=== PATIENT | female | born 1955 | race Caucasian/White ===

== ENCOUNTER → 2016-09-13 | Outpatient (CLI) | payer BC ==
[~2016-09-13] MED LIST: ACYC-57 PO; AFRIN NAE; ATV/1 PO; CETI10TA84 PO; CYCL0.052 OPB; CYCL10TA6 PO; DEXT1TAB50 PO; DIPH25TA24 PO; FAMO20TA11 PO; FRCT/ PO; FRS/40 PO; IMD/2 PO; KETO10TA PO; LEVO1TAB PO; MECL1TAB42 PO; METO-217 PO; METO50TA16 PO; OFLO0.3S OPB; OLOP0.1S3 OPB; ONDA8TAB6 PO; OXYC-409 PO; OXYC20TA32 PO; PANT40TA PO; PILO5TAB10 PO; POTA10CA28 PO; PRED1SUS3 OPB; PROM25TA PO; PSEU30TA20 PO; RLF500 PO; SUMA100T16 PO; TBRDOPO TOP; TIMO1SOL OPB; TOBRSUS OPB; TRIA3AER NAE; VGMOPS OP; ZOLP10TA PO
--- NOTE | 2016-09-13 11:10 | DIAGNOSTIC IMAGING REPORT ---
PELVIS 1 OR 2 VIEW ROUTINE CLINICAL HISTORY: Low back pain, Fall, Pain of right hip joint COMPARISON STUDY: CT of the abdomen and pelvis April 25, 2013 FINDINGS: The sacroiliac joints and symphysis pubis are intact. There is no acute fracture within the pelvis or hips. A 2 cm calcific density adjacent to the greater trochanter of the left femur is chronic. Joint spaces are preserved. IMPRESSION: No acute fracture within the pelvis or hips. Electronically signed by: Sylvain Lacey M.D. 09/13/2016 11:09 AM Dictated Date/Time: 09/13/2016 11:08 AM
--- NOTE | 2016-09-13 11:11 | DIAGNOSTIC IMAGING REPORT ---
RIGHT HIP UNILATERAL 2 VIEWS CLINICAL HISTORY: Right hip pain. Fall. COMPARISON: CT of the abdomen and pelvis April 25, 2013. FINDINGS: Alignment of the right hip is anatomic. There is no acute fracture. Joint space is preserved. No fracture or suspicious lesion is identified. IMPRESSION: No acute fracture. No significant abnormality of the right hip. Electronically signed by: Sylvain Lacey M.D. 09/13/2016 11:10 AM Dictated Date/Time: 09/13/2016 11:09 AM
--- NOTE | 2016-09-13 11:31 | DIAGNOSTIC IMAGING REPORT ---
L-SPINE MIN 4 VIEWS ROUTINE CLINICAL HISTORY: Low back pain, Fall, Pain of right hip joint COMPARISON: Lumbar spine MRI February 27, 2010 and January 05, 2016. FINDINGS: There are cholecystectomy clips. There is slight leftward curvature of the lower lumbar spine. No acute lumbar spine fracture is identified. 9 mm of anterolisthesis of L4 and L5 is noted. This has increased since MRI of January 05, 2016 and is likely related to facet arthrosis. There is moderate disc space narrowing at this level. IMPRESSION: 1. No acute lumbar spine fracture. 2. Grade I anterolisthesis of L4 and L5 which has mildly increased since MRI of January 05, 2016 is likely due to facet arthrosis. 2. Severe facet arthrosis at L4-L5. Moderate multilevel degenerative disc disease and facet arthrosis of the lumbar spine. Electronically signed by: Sylvain Lacey M.D. 09/13/2016 11:30 AM Dictated Date/Time: 09/13/2016 11:27 AM
== END | disposition home or self-care (01) ==
LOC: C.RADBC 10:49
PROVIDERS: ATTEND Psychiatry & Neurology Neurology
DX: M25.551 Pain in right hip (principal); M54.5 Low back pain; W19.XXXA Unspecified fall, initial encounter

== ENCOUNTER → 2016-12-10 | Outpatient (CLI) | payer BC ==
[~2016-12-10] MED LIST changes: -ACYC-57 PO; +ACYC1CAP8 PO; +OLOP0.1S2 OPB; -OLOP0.1S3 OPB
== END | disposition home or self-care (01) ==
LOC: C.PAPS 16:16
PROVIDERS: ATTEND Obstetrics & Gynecology
DX: Z01.419 Encounter for gynecological examination (general) (routine) without abnormal findings (principal); C91.10 Chronic lymphocytic leukemia of B-cell type not having achieved remission; C85.90 Non-Hodgkin lymphoma, unspecified, unspecified site; N95.2 Postmenopausal atrophic vaginitis

== ENCOUNTER → 2016-12-11 | Outpatient (CLI) | payer BC ==
--- NOTE | 2016-12-11 13:49 | MAMMOGRAPHY REPORT ---
BILATERAL DIGITAL DIAGNOSTIC MAMMOGRAM TOMOSYNTHESIS WITH CAD AND TARGETED BILATERAL ULTRASOUND: 2016 CLINICAL HISTORY: 61-year-old woman with a prior history of prior thyroid cancer, leukemia and lympho ma, presents for annual screening mammogram as well as increasing lymphadenopathy. TECHNIQUE: Bilateral breast tomosynthesis in addition to standard 2D mammography was performed. Repe at 2-D MLO views were obtained to include more axillary tail tissue. Current study was also evaluate d with a Computer Aided Detection (CAD) system. COMPARISON: Comparison is made to exams dated: 11/29/2015 ultrasound, 11/29/2015 mammogram, 02/28/2014 ultrasound, 02/28/2014 mammogram, 04/15/2012 ultrasound, and 04/15/2012 mammogram - [facility]. BREAST COMPOSITION: There are scattered areas of fibroglandular density in both breasts. FINDINGS: There are stable 7 mm nodular asymmetries in the lateral posterior right breast on the CC v iew, which are unchanged in size and appearance dating back to at least 08/26/2007, therefore likely benign. There are a few benign-appearing calcifications scattered in the breasts. On the repeat lef t MLO view, a bilobed 3.6 cm mass is partially visualized projecting over the superior posterior pect oralis muscle in the axillary region, suspicious for an enlarged lymph node. No suspicious breast ma ss, architectural distortion or cluster of microcalcifications is seen in the breasts. Targeted ultrasound was performed in both axillae. In the left axilla, numerous enlarged lymph nodes with thickened cortices are identified. The largest lymph node measures 3.2 cm in length and has a thickened cortex measuring up to 8 mm. There are similar appearing enlarged, morphologically abnorma l lymph nodes in the right axilla, the largest of which measures 3.2 cm and has a cortex measuring 9 mm. IMPRESSION: ACR BI-RADS CATEGORY 2: BENIGN, TARGETED ULTRASOUND ACR BI-RADS CATEGORY 2: BENIGN 1. Stable mammographic appearance of the breasts, without mammographic evidence of malignancy. Aydin mmend routine screening in 1 year. 2. Increasing bilateral axillary lymphadenopathy on ultrasound, compatible with disease progression and concordant with the patient's clinical history. These results and recommendations were discussed with the patient at the time of the exam. Approximately 10% of breast cancers are not detected with mammography. A negative mammographic report should not delay biopsy if a clinically suggestive mass is present. Paula Valderrama M.D. ay/:12/11/2016 11:03:59 [address] Driver: Hilaria NATHAN)(Jessica), [facility] letter sent: Normal 1/2 BI-RADS Code: ACR BI-RADS Category 2: Benign Ultrasound BI-RADS: ACR BI-RADS Category 2: Benign
== END | disposition home or self-care (01) ==
LOC: C.MAMM 08:38
PROVIDERS: ATTEND Obstetrics & Gynecology
DX: R59.0 Localized enlarged lymph nodes (principal)

== ENCOUNTER 2017-05-19 09:07 | Inpatient (IN) | payer BC ==
[~2017-05-19] VITALS: Ht 157.5 cm; Wt 69.9 kg
[~2017-05-19 09:07] MED LIST changes: +ACYC-57 PO; -ACYC1CAP8 PO; -OLOP0.1S2 OPB; +OLOP0.1S3 OPB
[2017-05-19] MEDS ORDERED: ONDANSETRON INJ 2 MG/ML 2 ML VIAL IV STA ×2 (10:08→18:59)
[2017-05-19] MEDS ORDERED: ACETAMINOPHEN 500 MG TAB PO STA (10:08)
[2017-05-19] MEDS ORDERED: MoRPHine SULFATE 10 MG/ML CARP/VIAL IV STA (10:08)
[2017-05-19] MEDS ORDERED: DEXAMETHASONE **PF** INJ 10 MG/ML VIAL IV ONE (10:15)
--- NOTE | 2017-05-19 10:15 | EMERGENCY ROOM VISIT NOTE ---
History Report prepared by Radhika: Larry Barrios Under the Supervision of: Dr. Nikhil Ferro M.D. First contact with patient: 09:33 Chief Complaint: LEG PAIN,LEG INJURY Stated Complaint: ACUTE PAIN LEFT L SPINE, HIP, AND LEG History of Present Illness The patient is a 62 year old white female with a past medical history of leukemia, lymphoma, Sjgren's disease, ankylosing spondylitis, and previous blood clots who presents to the ED with a cc of sharp left lower extremity pain beginning about 1 week ago. Positive left groin pain and left hip pain. Negative recent falls, fevers, chills, chest pain, shortness of breath, nausea, vomiting, abdominal pain, bowel incontinence, bladder incontinence, weakness, numbness, or any other extremity pain. When the patient's pain began, she thought that it was secondary to her normal body aches from her chemotherapy treatments. The patient's most recent chemotherapy treatment was on May 07 of this year. Her next one is in two weeks. However, her pains then became more severe a couple days later. Her pain is exacerbated with movement of her left leg. She notes that she had a UTI recently but her current symptom do not feel like that. Source of History: patient Onset: 1 week ago Position: leg (left) Symptom Intensity: moderate Quality: sharp Timing: constant Modifying Factors (Worsening): movement Associated Symptoms: No fevers, No chills, No chest pain, No SOB, No nausea , No vomiting, No abdominal pain, No diarrhea, No weakness, No numbness Review of Systems See HPI for pertinent positives and negatives. A total of ten systems were reviewed and were otherwise negative. Past Medical & Surgical Medical Problems: (1) Cholecystectomy (2) ERCP (3) Hysterectomy (4) RLL/SLL Family History Diabetes mellitus Hypertension Social History Smoking Status: Never Smoker Alcohol Use: none Drug Use: none Marital Status: Housing Status: lives with family Current/Historical Medications Scheduled Cetirizine (Zyrtec), 10 MG PO QAM Cyclobenzaprine Hcl (Flexeril), 10 MG PO TID Furosemide (Lasix), 60 MG PO QAM Ketorolac (Toradol), 10 MG PO UD Ketorolac Tromethamine (Ophth) (Acular Oph), 1 DROP OPB BID Levothyroxine Sodium (Synthroid), 175 MCG PO QAM Meclizine Hcl (Meclizine Hcl), 25 MG PO QID Metoprolol Succinate (Toprol Xl), 50 MG PO AMPM Moxifloxacin Hcl (Ophth) (Vigamox 0.5% Oph), 1 DROP OPB QID Nabumetone (Nabumetone), 750 MG PO UD Ofloxacin (Oph) (Ocuflox Oph Soln), 1 DROP OPB QID Olopatadine Hcl (Patanol 0.1% Oph), 1 DROP OPB BID Oxycodone Hcl (Oxycontin), 20 MG PO Q12 Pantoprazole (Protonix), 40 MG PO AMPM Pilocarpine (Salagen), 5 MG PO TID Potassium Chloride (Micro-K Ext Rel), 20 MEQ PO AMPM Prednisolone Acetate (Ophth) (Pred Forte 1% Oph), 1 DROP OPB BID Tobramycin/Dexamethasone 0.3% Oph (Tobradex 0.3% Oph), 1 DROP OPB BID Triamcinolone Acetonide (Nasal (Nasacort Allergy 24Hr), 1 SPRAY AUGUST BID [Istalol], 1 DROP OPB BID Scheduled PRN Acetamin/Butalbital/Caffeine (Fioricet), 1-2 TABLETS PO Q4H PRN for Headache Acyclovir (Zovirax), 400 MG PO UD PRN Alum & Mag Hydrox-Simethicone (Mylanta), 1 DOSE PO UD PRN for Constipation Clotrimazole (Mycelex), 10 MG PO 5XD PRN for THRUSH Diphenhydramine Hcl (Benadryl Allergy), 1 TAB PO UD PRN for ALLERGIES Erythromycin Opth (Erythromycin Opth), 1 APPLN OP UD PRN for UNDECIDED Famotidine (Pepcid), 1 TAB PO UD PRN for HEARTBURN Fexofenadine HCl (Mucinex Allergy), 1 TAB PO UD PRN for CONGESTION Fluconazole (Diflucan), 10 MG PO DAILY PRN for THRUSH Fluocinonide (Fluocinonide), 1 APPLN TOP DAILY PRN for RASH Ketoconazole (Ketoconazole), 1 APPLN TOP DAILY PRN for RASH Loperamide Hcl (Imodium), 1 CAP PO UD PRN for GI UPSET Lorazepam (Ativan), 1 MG PO UD PRN for TACHYCARDIA Maalox/Diphen/Visc. Buzz/Glyc (Magic Swizzle), 1 DOSE PO UD PRN for SORES Metoprolol Succ (Toprol Xl) (Toprol-Xl), 25 MG PO AMPM PRN for TACHYCARDIA Metoprolol Tartrate (Lopressor) (Lopressor), 50 MG PO UD PRN for TACHYCARDIA Ondansetron Hcl (Zofran), 8 MG PO Q8 PRN for Nausea Oxycodone Hcl (Oxycodone Hcl), 20 MG PO Q4H PRN for Pain Oxycodone Hcl (Oxycontin), 20 MG PO UD PRN for Pain Oxymetazoline Hcl (Afrin), 1 SPRAY AUGUST UD PRN for Nasal Congestion Polyethylene Glycol 3350 (Miralax), 17 GM PO UD PRN for Constipation Promethazine Hcl (Phenergan), 25 MG PO Q4H PRN for Nausea Pseudoephedrine Hcl (Pseudoephedrine Hcl), 1 TAB PO UD PRN for CONGESTION Sumatriptan Succinate (Imitrex), 100 MG PO UD PRN for Migraine Zolpidem Tartrate (Ambien), 10 MG PO HS PRN for Sleep Allergies Coded Allergies: Lamotrigine (Verified Allergy, Severe, rash & welts all over body, 05/19/17 ) Topiramate (Verified Allergy, Severe, rash all over body, 05/19/17) Ammonia (Unverified Allergy, Intermediate, RASH, HIVES, BREATHING DIFFICULTY, 05/19/17) Bromfenac (Verified Allergy, Intermediate, EYELID SWELLING AND SKIN AROUND EYES , BURNING ,EYE PAIN,, 02/17/15) Doxycycline (Unverified Allergy, Intermediate, RASH AND HIVES, 05/19/17) Tetracycline (Verified Allergy, Intermediate, rash & hives all over body, 05/19/17) Propantheline (Verified Allergy, Mild, RASH AND WHITE FILM ON TONGUE & INSIDE OF MOUTH, 02/17/15) Adhesives (Verified Allergy, Unknown, rash/welts/swelling, infection @ open wounds, 05/19/17) Aminoglycosides (Verified Allergy, Unknown, 02/17/15) Replaces BACITRACIN/NE BEE STING (Verified Allergy, Unknown, 05/19/17) Bacitracin (Verified Allergy, Unknown, Triple Abx: severe rash/welts/ irritation, 05/19/17) Dicyclomine (Verified Allergy, Unknown, ., 05/19/17) Mupirocin (Verified Allergy, Unknown, ., 05/19/17) Neomycin (Verified Allergy, Unknown, Triple Abx: severe rash/welts/ irritation, 05/19/17) Replaces BACITRACIN/NE PABA Derivatives (Verified Allergy, Unknown, ., 05/19/17) Polymyxin B (Verified Allergy, Unknown, Triple Abx: severe rash/welts/ irritation, 05/19/17) Sulfamethoxazole w/Trimethoprim (Verified Allergy, Unknown, ., 05/19/17) Trimethobenzamide (Verified Adverse Reaction, Severe, moderate/severe MUSCLE CONTRACTIONS, 05/19/17) Patchouli Oil (Unverified Adverse Reaction, Intermediate, BURNING OF EYES , NOSE, THROAT, AFFECTS BREATHING, 05/19/17) Aspirin (Verified Adverse Reaction, Mild, BRUISING ALL OVER, 05/19/17) Ibuprofen (Verified Adverse Reaction, Mild, BRUISING ALL OVER, 05/19/17) Lavender Oil (Unverified Adverse Reaction, Mild, BURNING OF EYES, NOSE, THROAT, AFFECTS BREATHING., 05/19/17) Pregabalin (Verified Adverse Reaction, Mild, swelling hands/feet, worsening of dry mouth (has Sjogren's), 05/19/17) Prochlorperazine (Verified Adverse Reaction, Mild, severe/extreme MUSCLE CONTRACTIONS, 05/19/17) Loteprednol (Verified Adverse Reaction, Unknown, pain in eyes & irritation , 05/19/17) Uncoded Allergies: WOOL (Allergy, Mild, RASH, HIVES, 05/19/17) TRACE METALS (Allergy, Unknown, ., 05/11/13) XIBROM (Allergy, Unknown, ., 05/11/13) Physical Exam Vital Signs Date Time Temp Pulse Resp B/P (MAP) Pulse Ox O2 Delivery O2 Flow Rate FiO2 05/19/17 17:09 36.8 83 18 98 Room Air 05/19/17 14:35 81 16 119/69 97 Room Air 05/19/17 13:30 77 16 139/78 92 Room Air 05/19/17 12:51 78 18 126/74 96 Room Air 05/19/17 11:56 76 16 120/65 96 Room Air 05/19/17 10:30 84 16 123/76 100 Room Air 05/19/17 10:13 100 Room Air 05/19/17 09:21 36.9 88 18 118/66 100 Room Air Physical Exam GENERAL: Awake, alert, pale-appearing, NAD, wearing a mask, HENT: Normocephalic, atraumatic. EYES: Normal conjunctiva. Sclera non-icteric. NECK: Supple. No nuchal rigidity. FROM. RESPIRATORY: CTAB, no rhonchi, wheezing, crackles CARDIAC: RRR, no MRG ABDOMEN: Soft, NTND, BS+. Mild reproducible left groin pain. No hernias noted. MSK: No chest wall TTP, no LE edema. Mild reproducible left paraspinal TTP. Compartments are soft. NVI distally. She is able to flex and extend the left leg , but it is limited secondary to pain. No redness, erythema, or calor to the LLE. NEURO: GCS 15, CN 2-12 intact, moves all 4s on command SKIN: No rash or jaundice noted. Medical Decision & Procedures ER Provider Diagnostic Interpretation: Radiology results as stated below per my review and radiologist interpretation: LUMBAR SPINE CT WITHOUT CONTRAST CLINICAL HISTORY: Acute back pain radiating into left lower extremity. History of chronic lymphocytic leukemia. COMPARISON STUDY: Lumbar spine MRI February 27, 2010 and January 05, 2016 and lumbar spine radiographs September 13, 2016. FINDINGS: For purposes of numbering on this exam, the L5-S1 disc space is assigned to axial image 236 of 271. 6 mm anterolisthesis of L4 and L5 has slightly increased since MRI of January 05, 2016. No acute lumbar spine fracture is present. Note is made of multiple moderately enlarged retroperitoneal lymph nodes. An index left para-aortic lymph node shown on axial image 115 of 271 measures 1.6 x 2 cm. This has mildly increased in size since MRI of January 05, 2016. A left common iliac node measures 1.2 cm in short axis diameter. This has also increased. Heterogeneity of the visualized skeletal structures is unchanged. There are no overtly suspicious skeletal lesions. There are multiple Schmorl's nodes. Central canal and neural foramen are suboptimally assessed due to CT technique. Moderate to severe central canal stenosis at L4-L5 is noted. Disc protrusions at L2-L3 and L3-L4 are noted. IMPRESSION: 1. No acute lumbar spine fracture or subluxation. 2. Increase in moderate retroperitoneal lymphadenopathy since MRI January 05, 2016. This favors leukemia/lymphoma. 3. Moderate to severe central canal stenosis at L4-L5. 4. Grade I anterolisthesis of L4 and L5 with marked disc space narrowing at this level. Electronically signed by: Sylvain Lacey M.D. 05/19/2017 11:41 AM Dictated Date/Time: 05/19/2017 11:29 AM LEFT LOWER EXTREMITY VENOUS DOPPLER HISTORY: Left leg pain, higher in groin area COMPARISON STUDY: None. FINDINGS: There is normal compressibility, flow, and augmentation within the left lower extremity deep venous system. IMPRESSION: No DVT within the left lower extremity. Electronically signed by: Beau Herndon M.D. 05/19/2017 12:23 PM Dictated Date/Time: 05/19/2017 12:23 PM LUMBAR SPINE W/O CONTRAST CLINICAL HISTORY: 62 years-old Female with L4/L5 stenosis, eval, LBP, pain LLE. Acute low back pain with radiation into the left lower extremity. History of lymphoma. COMPARISON: CT lumbar spine 05/19/2017, lumbar spine MR 01/05/2016 TECHNIQUE: Multiplanar, multi sequence MRI of the lumbar spine was performed without intravenous contrast. FINDINGS: No aortic aneurysm. Retroperitoneal adenopathy redemonstrated with conglomerate (aortic lymph nodes on image 11 series 7 measuring up to 1.9 x 2.3 cm, previously 1.4 x 1.4 cm on study dated 01/05/2016. Left iliac chain lymph node on image 19 series 7 now measures 11 mm in short axis, previously 9 mm. Aortocaval 10 mm lymph node on image 10 of series 7 previously measured 7 mm. Conus medullaris terminates at L1. Signal within the imaged cord appears normal. There is no acute fracture, subluxation or focal bone marrow edema identified. Multilevel Schmorl's nodes identified. 15 mm hemangioma is seen at L2. Bone marrow appears mildly heterogeneous. No definite discrete bone lesions are identified. 6 mm anterolisthesis of L4 on L5 redemonstrated with degenerative changes as below. T12-L1: Mild posterior spondylitic spurring, mild intervertebral disc space narrowing and facet arthrosis. No significant central canal or foraminal narrowing. L1-L2: Moderate intervertebral disc space narrowing with endplate spurring and small circumferential annular disc bulge. Mild facet arthrosis. Mild flattening of the ventral thecal sac without significant central canal or foraminal narrowing. L2-L3: Moderate intervertebral disc space narrowing with moderate posterior disc bulge, posterior spondylitic spurring, moderate facet arthrosis with ligamentum flavum thickening and small bilateral facet effusions. There is flattening of the ventral thecal sac with mild right lateral recess narrowing. No significant central canal stenosis. There is mild inferior bilateral foraminal narrowing. L3-L4: Moderate intervertebral disc space narrowing with spondylitic spurring and small to moderate circumferential annular disc bulge. Moderate facet arthrosis with ligamentum flavum thickening. Flattening of the ventral thecal sac without significant central canal narrowing. Mild left and mild to moderate right foraminal narrowing. L4-L5: Anterolisthesis as above with moderate to severe intervertebral disc space narrowing, circumferential annular disc bulge with spondylitic spurring and disc space uncovering. Additionally, there is severe facet arthrosis with ligamentum flavum thickening and moderate bilateral facet effusions. Central canal is narrowed to 7 mm in AP dimension, previously 8 mm. Additionally, there is severe right and mild to moderate left foraminal narrowing. Degree of central canal stenosis has worsened from prior. The degree of right foraminal narrowing has also slightly worsened. L5-S1: Mild intervertebral disc space narrowing with small posterior annular disc bulge, mild to moderate facet arthrosis with ligamentum flavum thickening. Flattening of the ventral thecal sac without significant central canal stenosis. No significant foraminal narrowing. IMPRESSION: 1. Progressively worsened retroperitoneal adenopathy as above from comparison study 01/05/2016 likely correlating with patient's known history of lymphoma/leukemia. 2. Grade 1 anterolisthesis of L4 on L5 with discogenic degenerative changes and facet arthrosis result in moderate to severe central canal, severe right and mild to moderate left foraminal narrowing. The degree of central canal stenosis has slightly worsened from comparison. 3. Additional discogenic degenerative changes and facet arthrosis as above. The above report was generated using voice recognition software. It may contain grammatical, syntax or spelling errors. Electronically signed by: Jarad Sosa M.D. 05/19/2017 5:00 PM Dictated Date/Time: 05/19/2017 4:46 PM Laboratory Results 05/19/17 10:52 Red Blood Count 4.83, Mean Corpuscular Volume 59.4, Mean Corpuscular Hemoglobin 17.8, Mean Corpuscular Hemoglobin Concent 30.0, Neutrophils (%) (Auto) 78.3, Lymphocytes (%) (Auto) 6.0, Monocytes (%) (Auto) 14.9, Eosinophils (%) (Auto) 0.5, Basophils (%) (Auto) 0.3, Neutrophils # (Auto) 3.00, Lymphocytes # (Auto) 0.23, Monocytes # (Auto) 0.57, Eosinophils # (Auto) 0.02, Basophils # (Auto) 0.01 05/19/17 10:52 Test 05/19/17 10:52 05/19/17 11:13 White Blood Count 3.83 K/uL (4.8-10.8) Red Blood Count 4.83 M/uL (4.2-5.4) Hemoglobin 8.6 g/dL (12.0-16.0) Hematocrit 28.7 % (37-47) Mean Corpuscular Volume 59.4 fL (80-100) Mean Corpuscular Hemoglobin 17.8 pg (25-34) Mean Corpuscular Hemoglobin Concent 30.0 g/dl (32-36) Platelet Count 72 K/uL (130-400) Neutrophils (%) (Auto) 78.3 % Lymphocytes (%) (Auto) 6.0 % Monocytes (%) (Auto) 14.9 % Eosinophils (%) (Auto) 0.5 % Basophils (%) (Auto) 0.3 % Neutrophils # (Auto) 3.00 K/uL (1.4-6.5) Lymphocytes # (Auto) 0.23 K/uL (1.2-3.4) Monocytes # (Auto) 0.57 K/uL (0.11-0.59) Eosinophils # (Auto) 0.02 K/uL (0-0.5) Basophils # (Auto) 0.01 K/uL (0-0.2) RDW Standard Deviation 40.8 fL (36.4-46.3) RDW Coefficient of Variation 19.1 % (11.5-14.5) Immature Granulocyte % (Auto) 0.0 % Immature Granulocyte # (Auto) 0.00 K/uL (0.00-0.02) Platelet Estimate DECREASED Hypochromasia PRESENT Anisocytosis PRESENT Microcytosis PRESENT Ovalocytes 1+ Prothrombin Time 10.6 SECONDS (9.0-12.0) Prothromb Time International Ratio 1.0 (0.9-1.1) Activated Partial Thromboplast Time 28.0 SECONDS (21.0-31.0) Partial Thromboplastin Ratio 1.1 Anion Gap 8.0 mmol/L (3-11) Est Creatinine Clear Calc Drug Dose 75.2 ml/min Estimated GFR () 103.0 Estimated GFR (Non- 88.9 BUN/Creatinine Ratio 11.1 (10-20) Calcium Level 8.8 mg/dl (8.5-10.1) Urine Color YELLOW Urine Appearance CLEAR (CLEAR) Urine pH 7.0 (4.5-7.5) Urine Specific [place] 1.007 (1.000-1.030) Urine Protein NEG (NEG) Urine Glucose (UA) NEG (NEG) Urine Ketones NEG (NEG) Urine Occult Blood NEG (NEG) Urine Nitrite NEG (NEG) Urine Bilirubin NEG (NEG) Urine Urobilinogen NEG (NEG) Urine Leukocyte Esterase NEG (NEG) Laboratory results reviewed by me Medications Administered Medications (Trade) Dose Ordered Sig/Brandon Route Start Time Stop Time Status Last Admin Dose Admin Ondansetron HCl (Zofran Inj) 4 mg NOW STAT IV 05/19/17 10:08 05/19/17 10:11 DC 05/19/17 10:45 4 MG Morphine Sulfate (MoRPHine SULFATE INJ) 8 mg NOW STAT IV 05/19/17 10:08 05/19/17 10:11 DC 05/19/17 10:46 8 MG Acetaminophen (Tylenol Tab) 1,000 mg NOW STAT PO 05/19/17 10:08 05/19/17 10:11 DC 05/19/17 10:45 1,000 MG Dexamethasone Sodium Phosphate (Dexamethasone Inj Pf) 10 mg NOW ONCE IV 05/19/17 10:15 05/19/17 10:16 DC 05/19/17 10:46 10 MG Hydromorphone HCl (Dilaudid Inj) 1 mg NOW STAT IV 05/19/17 12:15 05/19/17 12:16 DC 05/19/17 12:23 1 MG Hydromorphone HCl (Dilaudid Inj) 1 mg NOW STAT IV 05/19/17 13:32 05/19/17 13:34 DC 05/19/17 13:42 1 MG Fentanyl Citrate (Fentanyl Inj) 75 mcg NOW ONCE IV 05/19/17 15:00 05/19/17 15:01 DC 05/19/17 16:36 75 MCG ECG Indication: weakness Rate (beats per minute): 80 Rhythm: normal sinus Findings: T-wave inversion (III), left axis deviation, other Comparison ECG Date: Apr 20 Change: no significant change Change: Patient's electrocardiogram interpreted by me. ED Course 0933: The patient was evaluated in room B10. A complete history and physical exam was performed. 1153: Upon reevaluation, the patient is still having discomfort. 1529: The patient is now being taken to MRI. 1734: Upon reexamination, the patient was resting. I discussed the test results and treatment plan with her. I discussed the patient's case with Dr. Liz Guadarrama of [facility]. The patient will be evaluated by him for further management. 1737: I discussed the patient's case with Dr. Lauren of Orthopedics at this time. He agrees with the patient's treatment plan. Medical Decision The patient is a 62 year old white female with a past medical history of leukemia, lymphoma, Sjgren's disease, ankylosing spondylitis, and previous blood clots who presents to the ED with a cc of sharp left lower extremity pain beginning about 1 week ago. Positive left groin pain and left hip pain. Negative recent falls, fevers, chills, chest pain, shortness of breath, nausea, vomiting, abdominal pain, bowel incontinence, bladder incontinence, weakness, numbness, or any other extremity pain. Differential diagnosis: Etiologies such as fracture, dislocation, neurovascular compromise, compartment syndrome, soft tissue injury, DVT, and metastatic disease to the spine as well as others were entertained. Patient was seen and evaluated the bedside. Patient does have an extensive autoimmune as well as cancer history. Patient recently received chemotherapy at the end of April. Patient was complaining of some a some pains noted that she had some left lower extremity groin type pain. Patient has had blood clots in the past. Patient appears as though this one of those was provoked based on the work I reviewed that was given to me by her. Patient has soft compartments and is neurovascularly intact. The patient does complain of some pain when she is lifting her left lower extremity. Patient is somewhat limited but again can' t move that left lower extremity. The patient has no saddle anesthesia. The patient did have a non-con CT as well as blood work completed. Patient did have some mild leukopenia and thrombocytopenia. Patient's CT did show some canal stenosis and some anterior listhesis at L4-L5. Given this and the patient 's pain that was on amenable to medications given in the emergency department, the patient did have an MRI completed. Patient's MRI was consistent with her prior CT. It did show worsening compared to December 2015. The patient was still not willing to walk and the patient was having unrelenting low back pain not amenable to any treatments here supplied in the emergency department. Patient's other blood work was fairly unremarkable with exception of what was already noted which was some mild leukopenia and thrombocytopenia. I did discuss the patient with the on-call spinal surgeon who agreed to evaluate and see the patient. The patient was admitted to the medicine service for further evaluation, treatment, and pain control. Medication Reconcilliation Current Medication List: was personally reviewed by me Blood Pressure Screening Patient's blood pressure: Normal blood pressure Blood pressure disposition: Did not require urgent referral Consults Time Called: 1730 Consulting Physician: Dr. Liz Harper Returned Call: [phone] Discussed the patient's case. The patient will be evaluated for further treatment and disposition. Additional Consults: Time Called: 1730 Consulted Physician: Dr. Lauren - Orthopedics Returned Call: [phone] Additional Comments: We discussed the patient's case. He agrees with the treatment plan. Impression Primary Impression: Central stenosis of spinal canal Additional Impressions: Leg pain, left Back pain Thrombocytopenia Anemia Scribe Attestation The scribe's documentation has been prepared under my direction and personally reviewed by me in its entirety. I confirm that the note above accurately reflects all work, treatment, procedures, and medical decision making performed by me. Departure Information Dispostion Being Evaluated By Hospitalist Mansi Zhu M.D. (PCP) Patient Instructions [facility] Problem Qualifiers Additional Impressions: Back pain Back pain location: low back pain Chronicity: acute Back pain laterality: left Sciatica presence: without sciatica Qualified Codes: M54.5 - Low back pain Anemia Anemia type: unspecified type Qualified Codes: D64.9 - Anemia, unspecified
[2017-05-19 11:20] LABS: HEMATOCRIT 28.7 % (37-47); HEMOGLOBIN 8.6 g/dL (12.0-16.0); MEAN CELL VOLUME 59.4 fL (80-100); MEAN CORPUSCULAR HEMOGLOBIN 17.8 pg (25-34); RED CELL DISTRIBUTION WIDTH CV 19.1 % (11.5-14.5); RED CELL DISTRIBUTION WIDTH SD 40.8 fL (36.4-46.3); WHITE BLOOD COUNT 3.83 K/uL (4.8-10.8)
[2017-05-19 11:24] LABS: CALCIUM 8.8 mg/dl (8.5-10.1); CREATININE 0.73 mg/dl (0.60-1.20); POTASSIUM 4.1 mmol/L (3.5-5.1)
[2017-05-19 11:29] LABS: BASO % 0.3 %; BASO ABS # 0.01 K/uL (0-0.2); EOS % 0.5 %; EOS ABS # 0.02 K/uL (0-0.5); LYMPH ABS # 0.23 K/uL (1.2-3.4); MONO % 14.9 %; MONO ABS # 0.57 K/uL (0.11-0.59); NEUT % 78.3 %; PLATELET COUNT 72 K/uL (130-400)
--- NOTE | 2017-05-19 11:42 | DIAGNOSTIC IMAGING REPORT ---
LUMBAR SPINE CT WITHOUT CONTRAST CLINICAL HISTORY: Acute back pain radiating into left lower extremity. History of chronic lymphocytic leukemia. COMPARISON STUDY: Lumbar spine MRI February 27, 2010 and January 05, 2016 and lumbar spine radiographs September 13, 2016. FINDINGS: For purposes of numbering on this exam, the L5-S1 disc space is assigned to axial image 236 of 271. 6 mm anterolisthesis of L4 and L5 has slightly increased since MRI of January 05, 2016. No acute lumbar spine fracture is present. Note is made of multiple moderately enlarged retroperitoneal lymph nodes. An index left para-aortic lymph node shown on axial image 115 of 271 measures 1.6 x 2 cm. This has mildly increased in size since MRI of January 05, 2016. A left common iliac node measures 1.2 cm in short axis diameter. This has also increased. Heterogeneity of the visualized skeletal structures is unchanged. There are no overtly suspicious skeletal lesions. There are multiple Schmorl's nodes. Central canal and neural foramen are suboptimally assessed due to CT technique. Moderate to severe central canal stenosis at L4-L5 is noted. Disc protrusions at L2-L3 and L3-L4 are noted. IMPRESSION: 1. No acute lumbar spine fracture or subluxation. 2. Increase in moderate retroperitoneal lymphadenopathy since MRI January 05, 2016. This favors leukemia/lymphoma. 3. Moderate to severe central canal stenosis at L4-L5. 4. Grade I anterolisthesis of L4 and L5 with marked disc space narrowing at this level. Electronically signed by: Sylvain Lacey M.D. 05/19/2017 11:41 AM Dictated Date/Time: 05/19/2017 11:29 AM
[2017-05-19] MEDS ORDERED: HYDROmorphone INJ 1 MG/ML SYR IV STA ×3 (12:15→18:59)
[2017-05-19] MEDS ORDERED: MGCS/ PO (12:23)
[2017-05-19] MEDS ORDERED: ERYOPO OP (12:23)
[2017-05-19] MEDS ORDERED: LDXCR60 TOP (12:23)
[2017-05-19] MEDS ORDERED: CLOT10TR2 PO (12:23)
[2017-05-19] MEDS ORDERED: VGMOPS OPB (12:23)
[2017-05-19] MEDS ORDERED: PROM25TA9 PO (12:23)
[2017-05-19] MEDS ORDERED: KETO0.5S33 OPB (12:23)
[2017-05-19] MEDS ORDERED: POLY335019 PO (12:23)
[2017-05-19] MEDS ORDERED: NZRCR TOP (12:23)
[2017-05-19] MEDS ORDERED: ISTALOL OPB (12:23)
[2017-05-19] MEDS ORDERED: LEVO175T PO (12:23)
[2017-05-19] MEDS ORDERED: RLF750 PO (12:23)
[2017-05-19] MEDS ORDERED: KETO10TA PO (12:23)
[2017-05-19] MEDS ORDERED: TRIA1SPR4 NAE (12:23)
[2017-05-19] MEDS ORDERED: OXYC20TA50 PO ×2 (12:23)
[2017-05-19] MEDS ORDERED: FLUC100T PO (12:23)
[2017-05-19] MEDS ORDERED: METO25TA3 PO (12:23)
--- NOTE | 2017-05-19 12:24 | DIAGNOSTIC IMAGING REPORT ---
LEFT LOWER EXTREMITY VENOUS DOPPLER HISTORY: Left leg pain, higher in groin area COMPARISON STUDY: None. FINDINGS: There is normal compressibility, flow, and augmentation within the left lower extremity deep venous system. IMPRESSION: No DVT within the left lower extremity. Electronically signed by: Beau Herndon M.D. 05/19/2017 12:23 PM Dictated Date/Time: 05/19/2017 12:23 PM
[2017-05-19] MEDS ORDERED: IMD/2 PO (12:27)
[2017-05-19] MEDS ORDERED: PSEU60TA26 PO (12:27)
[2017-05-19] MEDS ORDERED: OXYM0.056 NAE (12:27)
[2017-05-19] MEDS ORDERED: ALUM-30 PO (12:27)
[2017-05-19] MEDS ORDERED: FAMO20TA11 PO (12:27)
[2017-05-19] MEDS ORDERED: FEXO3TAB PO (12:27)
[2017-05-19] MEDS ORDERED: DIPH1TAB87 PO (12:27)
[2017-05-19] MEDS ORDERED: FENTANYL CITRATE INJ 50 MCG/1 ML 2 ML VIAL IV ONE (15:00)
--- NOTE | 2017-05-19 17:02 | DIAGNOSTIC IMAGING REPORT ---
LUMBAR SPINE W/O CONTRAST CLINICAL HISTORY: 62 years-old Female with L4/L5 stenosis, eval, LBP, pain LLE. Acute low back pain with radiation into the left lower extremity. History of lymphoma. COMPARISON: CT lumbar spine 05/19/2017, lumbar spine MR 01/05/2016 TECHNIQUE: Multiplanar, multi sequence MRI of the lumbar spine was performed without intravenous contrast. FINDINGS: No aortic aneurysm. Retroperitoneal adenopathy redemonstrated with conglomerate (aortic lymph nodes on image 11 series 7 measuring up to 1.9 x 2.3 cm, previously 1.4 x 1.4 cm on study dated 01/05/2016. Left iliac chain lymph node on image 19 series 7 now measures 11 mm in short axis, previously 9 mm. Aortocaval 10 mm lymph node on image 10 of series 7 previously measured 7 mm. Conus medullaris terminates at L1. Signal within the imaged cord appears normal. There is no acute fracture, subluxation or focal bone marrow edema identified. Multilevel Schmorl's nodes identified. 15 mm hemangioma is seen at L2. Bone marrow appears mildly heterogeneous. No definite discrete bone lesions are identified. 6 mm anterolisthesis of L4 on L5 redemonstrated with degenerative changes as below. T12-L1: Mild posterior spondylitic spurring, mild intervertebral disc space narrowing and facet arthrosis. No significant central canal or foraminal narrowing. L1-L2: Moderate intervertebral disc space narrowing with endplate spurring and small circumferential annular disc bulge. Mild facet arthrosis. Mild flattening of the ventral thecal sac without significant central canal or foraminal narrowing. L2-L3: Moderate intervertebral disc space narrowing with moderate posterior disc bulge, posterior spondylitic spurring, moderate facet arthrosis with ligamentum flavum thickening and small bilateral facet effusions. There is flattening of the ventral thecal sac with mild right lateral recess narrowing. No significant central canal stenosis. There is mild inferior bilateral foraminal narrowing. L3-L4: Moderate intervertebral disc space narrowing with spondylitic spurring and small to moderate circumferential annular disc bulge. Moderate facet arthrosis with ligamentum flavum thickening. Flattening of the ventral thecal sac without significant central canal narrowing. Mild left and mild to moderate right foraminal narrowing. L4-L5: Anterolisthesis as above with moderate to severe intervertebral disc space narrowing, circumferential annular disc bulge with spondylitic spurring and disc space uncovering. Additionally, there is severe facet arthrosis with ligamentum flavum thickening and moderate bilateral facet effusions. Central canal is narrowed to 7 mm in AP dimension, previously 8 mm. Additionally, there is severe right and mild to moderate left foraminal narrowing. Degree of central canal stenosis has worsened from prior. The degree of right foraminal narrowing has also slightly worsened. L5-S1: Mild intervertebral disc space narrowing with small posterior annular disc bulge, mild to moderate facet arthrosis with ligamentum flavum thickening. Flattening of the ventral thecal sac without significant central canal stenosis. No significant foraminal narrowing. IMPRESSION: 1. Progressively worsened retroperitoneal adenopathy as above from comparison study 01/05/2016 likely correlating with patient's known history of lymphoma/leukemia. 2. Grade 1 anterolisthesis of L4 on L5 with discogenic degenerative changes and facet arthrosis result in moderate to severe central canal, severe right and mild to moderate left foraminal narrowing. The degree of central canal stenosis has slightly worsened from comparison. 3. Additional discogenic degenerative changes and facet arthrosis as above. The above report was generated using voice recognition software. It may contain grammatical, syntax or spelling errors. Electronically signed by: Jarad Sosa M.D. 05/19/2017 5:00 PM Dictated Date/Time: 05/19/2017 4:46 PM
[2017-05-19] MEDS ORDERED: ALUMINUM/MAGNESIUM/SIMETH (MAALOX MAX) 30 ML UDC PO PRN (19:00)
[2017-05-19] MEDS ORDERED: MAGNESIUM HYDROXIDE SUSP 30 ML UDC PO PRN (19:00)
[2017-05-19] MEDS ORDERED: ACETAMINOPHEN 325 MG TAB PO PRN (19:00)
[2017-05-19] MEDS ORDERED: POLYETHYLENE (MIRALAX) 17 GM PACK PO PRN (19:00)
--- NOTE | 2017-05-19 19:40 | History and Physical ---
History & Physical Date & Time of Service: May 19, 2017 at 19:13 Chief Complaint: Acute Pain Left L Spine, Hip, And Leg Primary Care Physician: Mansi Mccabe M.D. History of Present Illness Source: patient, spouse, clinic records, hospital records This is a 62 y/o female with a history of CLL/SLL, h/o thyroid cancer s/p thyroidectomy, Sjogren's, ankylosing spondylitis, atrial tachycardia, SVT, migraines, neuropathy, fibromyalgia, h/o DVT and PE, glaucoma, and GERD who presented to the ED on 05/19 with left lower back pain and left lower extremity pain. The patient states that the pain started about 2 weeks ago after returning from [place] where she gets chemo. She initially thought this was her normal aches/pains or due to chemo, but the pain got progressively worse. She now has difficulty flexing her leg and is not able to even dress/undress herself or get into the shower due to limited ROM secondary to pain. She describes the pain as a 10/10 sharp and burning pain that starts in her lower left lower back and radiates down into her hip and left thigh, as well as into her left groin. The pain at times shoots all the way down her leg. She also complains of worsening muscle spasms in these areas. She feels that this pain is also exacerbating her other chronic problems/pains. She states that she is at times SOB. She has chronic nausea due to chemo but feels that it has been worse with the pain. She also has chronic abdominal pain related to chemo. The patient denies fevers, chills, sweats, chest pain, palpitations, claudication, cough, wheezing, vomiting, dysuria, hematuria, urinary retention, paralysis, weakness, acute numbness and tingling. Past Medical/Surgical History Medical Problems: (1) Cholecystectomy Status: Resolved (2) ERCP Status: Resolved (3) Hysterectomy Status: Resolved (4) CLL/SLL Status: Chronic H/o thyroid cancer s/p thyroidectomy Sjogren's syndrome Ankylosing spondylitis Atrial and supraventricular tachycardia Glaucoma H/o DVT and PE GERD Family History Cancer (throat, lung, breast, pancreas, colon) Diabetes mellitus Hypertension Myocardial infarction Stroke Social History Smoking Status: Never Smoker Smokeless Tobacco Use: No Alcohol Use: none Drug Use: none Marital Status: Housing status: lives with significant other Occupational Status: disabled Immunizations History of Influenza Vaccine: No History of Tetanus Vaccine?: 2003 Tetanus Immunization Date: Nov 16, 2003 History of Pneumococcal: No History of Hepatitis B Vaccine: No Multi-Drug Resistant Organisms History of MDRO: No Allergies Coded Allergies: Lamotrigine (Verified Allergy, Severe, rash & welts all over body, 05/19/17 ) Topiramate (Verified Allergy, Severe, rash all over body, 05/19/17) Ammonia (Unverified Allergy, Intermediate, RASH, HIVES, BREATHING DIFFICULTY, 05/19/17) Bromfenac (Verified Allergy, Intermediate, EYELID SWELLING AND SKIN AROUND EYES , BURNING ,EYE PAIN,, 02/17/15) Doxycycline (Unverified Allergy, Intermediate, RASH AND HIVES, 05/19/17) Tetracycline (Verified Allergy, Intermediate, rash & hives all over body, 05/19/17) Propantheline (Verified Allergy, Mild, RASH AND WHITE FILM ON TONGUE & INSIDE OF MOUTH, 02/17/15) Adhesives (Verified Allergy, Unknown, rash/welts/swelling, infection @ open wounds, 05/19/17) Aminoglycosides (Verified Allergy, Unknown, 02/17/15) Replaces BACITRACIN/NE BEE STING (Verified Allergy, Unknown, 05/19/17) Bacitracin (Verified Allergy, Unknown, Triple Abx: severe rash/welts/ irritation, 05/19/17) Dicyclomine (Verified Allergy, Unknown, ., 05/19/17) Mupirocin (Verified Allergy, Unknown, ., 05/19/17) Neomycin (Verified Allergy, Unknown, Triple Abx: severe rash/welts/ irritation, 05/19/17) Replaces BACITRACIN/NE PABA Derivatives (Verified Allergy, Unknown, ., 05/19/17) Polymyxin B (Verified Allergy, Unknown, Triple Abx: severe rash/welts/ irritation, 05/19/17) Sulfamethoxazole w/Trimethoprim (Verified Allergy, Unknown, ., 05/19/17) Trimethobenzamide (Verified Adverse Reaction, Severe, moderate/severe MUSCLE CONTRACTIONS, 05/19/17) Patchouli Oil (Unverified Adverse Reaction, Intermediate, BURNING OF EYES , NOSE, THROAT, AFFECTS BREATHING, 05/19/17) Aspirin (Verified Adverse Reaction, Mild, BRUISING ALL OVER, 05/19/17) Ibuprofen (Verified Adverse Reaction, Mild, BRUISING ALL OVER, 05/19/17) Lavender Oil (Unverified Adverse Reaction, Mild, BURNING OF EYES, NOSE, THROAT, AFFECTS BREATHING., 05/19/17) Pregabalin (Verified Adverse Reaction, Mild, swelling hands/feet, worsening of dry mouth (has Sjogren's), 05/19/17) Prochlorperazine (Verified Adverse Reaction, Mild, severe/extreme MUSCLE CONTRACTIONS, 05/19/17) Loteprednol (Verified Adverse Reaction, Unknown, pain in eyes & irritation , 05/19/17) Uncoded Allergies: WOOL (Allergy, Mild, RASH, HIVES, 05/19/17) TRACE METALS (Allergy, Unknown, ., 05/11/13) XIBROM (Allergy, Unknown, ., 05/11/13) Home Medications Scheduled Cetirizine (Zyrtec), 10 MG PO QAM Cyclobenzaprine Hcl (Flexeril), 10 MG PO TID Furosemide (Lasix), 60 MG PO QAM Ketorolac (Toradol), 10 MG PO UD Ketorolac Tromethamine (Ophth) (Acular Oph), 1 DROP OPB BID Levothyroxine Sodium (Synthroid), 175 MCG PO QAM Meclizine Hcl (Meclizine Hcl), 25 MG PO QID Metoprolol Succinate (Toprol Xl), 50 MG PO AMPM Moxifloxacin Hcl (Ophth) (Vigamox 0.5% Oph), 1 DROP OPB QID Nabumetone (Nabumetone), 750 MG PO UD Ofloxacin (Oph) (Ocuflox Oph Soln), 1 DROP OPB QID Olopatadine Hcl (Patanol 0.1% Oph), 1 DROP OPB BID Oxycodone Hcl (Oxycontin), 20 MG PO Q12 Pantoprazole (Protonix), 40 MG PO AMPM Pilocarpine (Salagen), 5 MG PO TID Potassium Chloride (Micro-K Ext Rel), 20 MEQ PO AMPM Prednisolone Acetate (Ophth) (Pred Forte 1% Oph), 1 DROP OPB BID Tobramycin/Dexamethasone 0.3% Oph (Tobradex 0.3% Oph), 1 DROP OPB BID Triamcinolone Acetonide (Nasal (Nasacort Allergy 24Hr), 1 SPRAY AUGUST BID [Istalol], 1 DROP OPB BID Scheduled PRN Acetamin/Butalbital/Caffeine (Fioricet), 1-2 TABLETS PO Q4H PRN for Headache Acyclovir (Zovirax), 400 MG PO UD PRN Alum & Mag Hydrox-Simethicone (Mylanta), 1 DOSE PO UD PRN for Constipation Clotrimazole (Mycelex), 10 MG PO 5XD PRN for THRUSH Diphenhydramine Hcl (Benadryl Allergy), 1 TAB PO UD PRN for ALLERGIES Erythromycin Opth (Erythromycin Opth), 1 APPLN OP UD PRN for UNDECIDED Famotidine (Pepcid), 1 TAB PO UD PRN for HEARTBURN Fexofenadine HCl (Mucinex Allergy), 1 TAB PO UD PRN for CONGESTION Fluconazole (Diflucan), 10 MG PO DAILY PRN for THRUSH Fluocinonide (Fluocinonide), 1 APPLN TOP DAILY PRN for RASH Ketoconazole (Ketoconazole), 1 APPLN TOP DAILY PRN for RASH Loperamide Hcl (Imodium), 1 CAP PO UD PRN for GI UPSET Lorazepam (Ativan), 1 MG PO UD PRN for TACHYCARDIA Maalox/Diphen/Visc. Buzz/Glyc (Magic Swizzle), 1 DOSE PO UD PRN for SORES Metoprolol Succ (Toprol Xl) (Toprol-Xl), 25 MG PO AMPM PRN for TACHYCARDIA Metoprolol Tartrate (Lopressor) (Lopressor), 50 MG PO UD PRN for TACHYCARDIA Ondansetron Hcl (Zofran), 8 MG PO Q8 PRN for Nausea Oxycodone Hcl (Oxycodone Hcl), 20 MG PO Q4H PRN for Pain Oxycodone Hcl (Oxycontin), 20 MG PO UD PRN for Pain Oxymetazoline Hcl (Afrin), 1 SPRAY AUGUST UD PRN for Nasal Congestion Polyethylene Glycol 3350 (Miralax), 17 GM PO UD PRN for Constipation Promethazine Hcl (Phenergan), 25 MG PO Q4H PRN for Nausea Pseudoephedrine Hcl (Pseudoephedrine Hcl), 1 TAB PO UD PRN for CONGESTION Sumatriptan Succinate (Imitrex), 100 MG PO UD PRN for Migraine Zolpidem Tartrate (Ambien), 10 MG PO HS PRN for Sleep Review of Systems Constitutional: No fever, No chills, No sweats Eyes: No worsening of vision, No eye pain, No diplopia ENT: No hearing loss, No nasal symptoms, No trouble swallowing Respiratory: +Intermittent SOB. No cough, No wheezing Cardiovascular: No chest pain, No claudication, No palpitations Abdomen: +Chronic nausea and pain. No vomiting Musculoskeletal: +Left lower back pain, LLE pain. No swelling Genitourinary - Female: No dysuria, No urinary retention, No hematuria Neurologic: No paralysis, No weakness, No numbness/tingling Integumentary: No rash, No itch, No color change Physical Exam Vital Signs Date Time Temp Pulse Resp B/P (MAP) Pulse Ox O2 Delivery O2 Flow Rate FiO2 05/19/17 18:49 77 18 131/69 99 Room Air 05/19/17 17:09 36.8 83 18 11/65 98 Room Air 05/19/17 14:35 81 16 119/69 97 Room Air 05/19/17 13:30 77 16 139/78 92 Room Air 05/19/17 12:51 78 18 126/74 96 Room Air 05/19/17 11:56 76 16 120/65 96 Room Air 05/19/17 10:30 84 16 123/76 100 Room Air 05/19/17 10:13 100 Room Air 05/19/17 09:21 36.9 88 18 118/66 100 Room Air General appearance: Well-developed, well-nourished, no apparent distress Head: Normocephalic, atraumatic Eyes: Normal inspection, PERRL, EOMI ENT: +Mask on. Normal ENT inspection, hearing grossly normal, pharynx normal Neck: Supple, no JVD, trachea midline Respiratory/Chest: Lungs clear to auscultation, normal breath sounds, no respiratory distress Cardiovascular: Regular rate & rhythm, no gallop, no murmur Abdomen/GI: +Diffusely TTP. Normal bowel sounds, soft Extremities/Musculoskeletal: +Left lower back TTP, left hip TTP, LLE TTP especially in thigh. LLE ROM limited due to pain. Able to lift LLE straight up a few inches off bed. Limited flexion of knee due to pain. Normal inspection, no calf tenderness, no pedal edema Neurological/Psych: Alert, normal mood/affect, oriented x 3 Skin: Normal color, warm/dry, no rash Diagnostics Laboratory Results Results Past 24 Hours Test 05/19/17 10:52 05/19/17 11:13 Range/Units White Blood Count 3.83 4.8-10.8 K/uL Red Blood Count 4.83 4.2-5.4 M/uL Hemoglobin 8.6 12.0-16.0 g/dL Hematocrit 28.7 37-47 % Mean Corpuscular Volume 59.4 80-100 fL Mean Corpuscular Hemoglobin 17.8 25-34 pg Mean Corpuscular Hemoglobin Concent 30.0 32-36 g/dl Platelet Count 72 130-400 K/uL Neutrophils (%) (Auto) 78.3 % Lymphocytes (%) (Auto) 6.0 % Monocytes (%) (Auto) 14.9 % Eosinophils (%) (Auto) 0.5 % Basophils (%) (Auto) 0.3 % Neutrophils # (Auto) 3.00 1.4-6.5 K/uL Lymphocytes # (Auto) 0.23 1.2-3.4 K/uL Monocytes # (Auto) 0.57 0.11-0.59 K/uL Eosinophils # (Auto) 0.02 0-0.5 K/uL Basophils # (Auto) 0.01 0-0.2 K/uL RDW Standard Deviation 40.8 36.4-46.3 fL RDW Coefficient of Variation 19.1 11.5-14.5 % Immature Granulocyte % (Auto) 0.0 % Immature Granulocyte # (Auto) 0.00 0.00-0.02 K/uL Platelet Estimate DECREASED Hypochromasia PRESENT Anisocytosis PRESENT Microcytosis PRESENT Ovalocytes 1+ Prothrombin Time 10.6 9.0-12.0 SECONDS Prothromb Time International Ratio 1.0 0.9-1.1 Activated Partial Thromboplast Time 28.0 21.0-31.0 SECONDS Partial Thromboplastin Ratio 1.1 Sodium Level 139 136-145 mmol/L Potassium Level 4.1 3.5-5.1 mmol/L Chloride Level 106 98-107 mmol/L Carbon Dioxide Level 26 21-32 mmol/L Anion Gap 8.0 3-11 mmol/L Blood Urea Nitrogen 8 7-18 mg/dl Creatinine 0.73 0.60-1.20 mg/dl Est Creatinine Clear Calc Drug Dose 75.2 ml/min Estimated GFR () 103.0 Estimated GFR (Non- 88.9 BUN/Creatinine Ratio 11.1 10-20 Random Glucose 94 70-99 mg/dl Calcium Level 8.8 8.5-10.1 mg/dl Urine Color YELLOW Urine Appearance CLEAR CLEAR Urine pH 7.0 4.5-7.5 Urine Specific [place] 1.007 1.000-1.030 Urine Protein NEG NEG Urine Glucose (UA) NEG NEG Urine Ketones NEG NEG Urine Occult Blood NEG NEG Urine Nitrite NEG NEG Urine Bilirubin NEG NEG Urine Urobilinogen NEG NEG Urine Leukocyte Esterase NEG NEG Diagnostic Radiology Reviewed the following studies and agree with interpretation as follows: LUMBAR SPINE CT WITHOUT CONTRAST CLINICAL HISTORY: Acute back pain radiating into left lower extremity. History of chronic lymphocytic leukemia. COMPARISON STUDY: Lumbar spine MRI February 27, 2010 and January 05, 2016 and lumbar spine radiographs September 13, 2016. FINDINGS: For purposes of numbering on this exam, the L5-S1 disc space is assigned to axial image 236 of 271. 6 mm anterolisthesis of L4 and L5 has slightly increased since MRI of January 05, 2016. No acute lumbar spine fracture is present. Note is made of multiple moderately enlarged retroperitoneal lymph nodes. An index left para-aortic lymph node shown on axial image 115 of 271 measures 1.6 x 2 cm. This has mildly increased in size since MRI of January 05, 2016. A left common iliac node measures 1.2 cm in short axis diameter. This has also increased. Heterogeneity of the visualized skeletal structures is unchanged. There are no overtly suspicious skeletal lesions. There are multiple Schmorl's nodes. Central canal and neural foramen are suboptimally assessed due to CT technique. Moderate to severe central canal stenosis at L4-L5 is noted. Disc protrusions at L2-L3 and L3-L4 are noted. IMPRESSION: 1. No acute lumbar spine fracture or subluxation. 2. Increase in moderate retroperitoneal lymphadenopathy since MRI January 05, 2016. This favors leukemia/lymphoma. 3. Moderate to severe central canal stenosis at L4-L5. 4. Grade I anterolisthesis of L4 and L5 with marked disc space narrowing at this level. LEFT LOWER EXTREMITY VENOUS DOPPLER HISTORY: Left leg pain, higher in groin area COMPARISON STUDY: None. FINDINGS: There is normal compressibility, flow, and augmentation within the left lower extremity deep venous system. IMPRESSION: No DVT within the left lower extremity. LUMBAR SPINE W/O CONTRAST CLINICAL HISTORY: 62 years-old Female with L4/L5 stenosis, eval, LBP, pain LLE. Acute low back pain with radiation into the left lower extremity. History of lymphoma. COMPARISON: CT lumbar spine 05/19/2017, lumbar spine MR 01/05/2016 TECHNIQUE: Multiplanar, multi sequence MRI of the lumbar spine was performed without intravenous contrast. FINDINGS: No aortic aneurysm. Retroperitoneal adenopathy redemonstrated with conglomerate (aortic lymph nodes on image 11 series 7 measuring up to 1.9 x 2.3 cm, previously 1.4 x 1.4 cm on study dated 01/05/2016. Left iliac chain lymph node on image 19 series 7 now measures 11 mm in short axis, previously 9 mm. Aortocaval 10 mm lymph node on image 10 of series 7 previously measured 7 mm. Conus medullaris terminates at L1. Signal within the imaged cord appears normal. There is no acute fracture, subluxation or focal bone marrow edema identified. Multilevel Schmorl's nodes identified. 15 mm hemangioma is seen at L2. Bone marrow appears mildly heterogeneous. No definite discrete bone lesions are identified. 6 mm anterolisthesis of L4 on L5 redemonstrated with degenerative changes as below. T12-L1: Mild posterior spondylitic spurring, mild intervertebral disc space narrowing and facet arthrosis. No significant central canal or foraminal narrowing. L1-L2: Moderate intervertebral disc space narrowing with endplate spurring and small circumferential annular disc bulge. Mild facet arthrosis. Mild flattening of the ventral thecal sac without significant central canal or foraminal narrowing. L2-L3: Moderate intervertebral disc space narrowing with moderate posterior disc bulge, posterior spondylitic spurring, moderate facet arthrosis with ligamentum flavum thickening and small bilateral facet effusions. There is flattening of the ventral thecal sac with mild right lateral recess narrowing. No significant central canal stenosis. There is mild inferior bilateral foraminal narrowing. L3-L4: Moderate intervertebral disc space narrowing with spondylitic spurring and small to moderate circumferential annular disc bulge. Moderate facet arthrosis with ligamentum flavum thickening. Flattening of the ventral thecal sac without significant central canal narrowing. Mild left and mild to moderate right foraminal narrowing. L4-L5: Anterolisthesis as above with moderate to severe intervertebral disc space narrowing, circumferential annular disc bulge with spondylitic spurring and disc space uncovering. Additionally, there is severe facet arthrosis with ligamentum flavum thickening and moderate bilateral facet effusions. Central canal is narrowed to 7 mm in AP dimension, previously 8 mm. Additionally, there is severe right and mild to moderate left foraminal narrowing. Degree of central canal stenosis has worsened from prior. The degree of right foraminal narrowing has also slightly worsened. L5-S1: Mild intervertebral disc space narrowing with small posterior annular disc bulge, mild to moderate facet arthrosis with ligamentum flavum thickening. Flattening of the ventral thecal sac without significant central canal stenosis. No significant foraminal narrowing. IMPRESSION: 1. Progressively worsened retroperitoneal adenopathy as above from comparison study 01/05/2016 likely correlating with patient's known history of lymphoma/leukemia. 2. Grade 1 anterolisthesis of L4 on L5 with discogenic degenerative changes and facet arthrosis result in moderate to severe central canal, severe right and mild to moderate left foraminal narrowing. The degree of central canal stenosis has slightly worsened from comparison. 3. Additional discogenic degenerative changes and facet arthrosis as above. EKG Reviewed EKG and agree with interpretation as follows: 80 bpm, NSR Impression Assessment and Plan 62 y/o female with a history of CLL/SLL, h/o thyroid cancer s/p thyroidectomy, Sjogren's, ankylosing spondylitis, atrial tachycardia, SVT, migraines, neuropathy, fibromyalgia, h/o DVT and PE, glaucoma, and GERD who presented to the ED on 05/19 with left lower back pain and left lower extremity pain. Pt afebrile, VSS on arrival. Lumbar spine CT and MRI done in ED. Imaging shows no acute fracture or subluxation. Increase in moderate retroperitoneal lymphadenopathy favoring leukemia/lymphoma. Moderate to severe central canal stenosis at L4-L5. Grade I anterolisthesis of L4 and L5 w/facet arthrosis in moderate to severe central canal, severe right and mild to moderate left foraminal narrowing. EKG no ischemic changes. Labs grossly unremarkable Low back pain/LLE pain, ankylosing spondylitis -Admit to med/surg -Lidoderm patch -Toradol 15 mg IV q6h prn pain -Increase home oxycodone ER to 40 mg PO BID -Decrease home oxycodone IR to 10 mg PO q4h prn pain -Heating pad to back -Continue Flexeril 10 mg PO TID -Avoid steroids due to chemo -Consult pain management, appreciate recs CLL/SLL--stable, between chemo treatments. Next treatment in 2 weeks Hypothyroidism--h/o thyroid cancer s/p thyroidectomy -Continue Synthroid 175 mcg PO qd Sjogren's -Continue Salagen 5 mg PO TID Atrial tachycardia/SVT--stable -Continue Toprol XL 50 mg PO BID. Takes additional Toprol 25 mg with the 50 mg if needed for palpitations and acute tachycardia as well as prn Lopressor DVT prophylaxis -Enoxaparin 40 mg SC q24h -DAVIDE Parsons Code Status -Level I, FULL RESUSCITATION STATUS I personally interviewed and examined the patient. I agree with history of present illness and physical exam mentioned above, I also performed my own history taking and examination. Past medical history and review of system has been obtained by myself I reviewed all pertinent labs and studies Reviewed current medications I discussed and formulated of the assessment and plan mentioned above by Miss Babcock. Please refer to the Summary mentioned below. 62-year-old female with CLL/SLL and history of thyroid cancer status post iridectomy, SVT, history of left lower extremity DVT and PE. Patient is currently on chemotherapy presented to the hospital with severe intractable lower back pain. Pain is referred to her left lower extremity. Assessment Intractable lower back pain secondary to enclosing spondylitis/central canal stenosis plan: Lidoderm patch / toradol / increase oxycodone SR consult spinal spine consult pain management US lower ext showed no DVT General Appearance: not in acute distress Eyes: normal Sclerae, extraocular muscle intact ENT: hearing grossly normal Neck: supple Respiratory/Chest: normal air entry bilateral ,no respiratory distress, no accessory muscle use Cardiovascular: regular rate, rhythm, no murmur Abdomen: non tender, soft, no masses Extremities: no edema, but his tenderness and pain in left eye Neurologic/Psychiatric: Awake alert oriented times place and person moves all extremities sensation intact cranial nerves II-12 appear to be intact Skin: normal color, warm/dry, no rash Musculoskeletal, decreased range of motion for lower back with muscle spasm. Jazz Guadarrama MD, [facility] Level of Care Med/Surg Resuscitation Status FULL RESUSCITATION VTE Prophylaxis VTE Risk Assessment Done? Y/N: Yes Risk Level: High Given or contraindicated: Enoxaparin (Lovenox)SQ, T.E.D. Stockings, SCD's
[2017-05-19] MEDS ORDERED: HYDROmorphone INJ 1 MG/ML SYR ONE (20:26)
[2017-05-19] MEDS: MECLIZINE HCL 25 MG TAB PO SCH (21:00)
[2017-05-19] MEDS: PANTOprazole SOD 40 MG TAB PO SCH (21:00)
[2017-05-19] MEDS: POTASSIUM CHLORIDE 10 MEQ TABCR PO SCH (21:00)
[2017-05-19] MEDS: METOPROLOL SUCC 50MG EXT REL TAB PO SCH (21:00)
[2017-05-19 22:50] VITALS: BP_SYST 126; BP_SYST 129; BP_DIAS 67; PULSE 86; TEMP 36.8; O2SAT 97; BMI 29.0
[2017-05-20] MEDS: KETOROLAC TROMETHAMINE 15 MG/ML VIAL IV PRN ×4 (00:50→23:32)
[2017-05-20] MEDS: OXYCODONE HCL 20 MG TABCR (OXYCONTIN) PO SCH ×3 (00:51→21:53)
[2017-05-20] MEDS: CYCLOBENZAPRINE HCL 10 MG TAB PO SCH ×4 (00:52→21:56)
[2017-05-20] MEDS: BUTALBITAL/ACETAMIN/CAFFEINE TAB PO PRN ×2 (01:20→17:56)
[2017-05-20 01:22] VITALS: BP 126/67; PULSE 84; TEMP 36.8; O2SAT 97
[2017-05-20] MEDS: OXYCODONE HCL IR 5 MG TAB (IMMEDIATE RELEASE) PO PRN ×4 (02:30→23:37)
[2017-05-20] MEDS: LEVOTHYROXINE 175 MCG TAB PO SCH (05:12)
[2017-05-20 05:58] LABS: MEAN CORPUSCULAR HGB CONC 30.7 g/dl (32-36)
[2017-05-20 06:07] LABS: HEMATOCRIT 26.4 % (37-47); HEMOGLOBIN 8.1 g/dL (12.0-16.0); MEAN CELL VOLUME 58.9 fL (80-100); MEAN CORPUSCULAR HEMOGLOBIN 18.1 pg (25-34); RED CELL DISTRIBUTION WIDTH CV 18.9 % (11.5-14.5); RED CELL DISTRIBUTION WIDTH SD 39.8 fL (36.4-46.3); WHITE BLOOD COUNT 3.95 K/uL (4.8-10.8)
[2017-05-20 06:32] LABS: CALCIUM 8.4 mg/dl (8.5-10.1); CREATININE 0.89 mg/dl (0.60-1.20); POTASSIUM 3.4 mmol/L (3.5-5.1)
[2017-05-20 06:39] LABS: PLATELET COUNT 90 K/uL (130-400)
[2017-05-20 07:20] VITALS: BP 122/74; PULSE 81; TEMP 36.6; O2SAT 96
--- NOTE | 2017-05-20 08:27 | Progress Note ---
Subjective Date of Service: May 20, 2017. Subjective this pt has significant left hip pain, even to point touch, she has her typical lower back pain that is secondary to chemo as it has been in the past. Problem List Medical Problems: (1) Anemia Status: Acute (2) Back pain Status: Acute (3) Central stenosis of spinal canal Status: Acute (4) Leg pain, left Status: Acute (5) Thrombocytopenia Status: Acute Review of Systems Constitutional: + weakness, + fatigue, No fever, No chills Respiratory: No cough, No sputum, No wheezing Cardiac: No chest pain, No edema Abdomen: No pain, No nausea, No vomiting, No diarrhea Musculoskeletal: + joint pain, + muscle pain, + swelling Female : No dysuria, No hematuria Neurologic: No memory loss, No weakness, No numbness/tingling Psychiatric: No depression symptoms, No anxiety Objective Vital Signs Date Time Temp Pulse Resp B/P (MAP) Pulse Ox O2 Delivery O2 Flow Rate FiO2 05/20/17 07:20 36.6 81 18 122/74 (90) 96 Room Air 05/20/17 02:12 Room Air 05/20/17 01:22 36.8 84 20 126/67 (86) 97 Room Air 05/19/17 22:50 36.8 86 20 129/67 (87) 97 05/19/17 22:50 36.8 86 20 126/67 Room Air 05/19/17 22:33 83 20 129/75 93 05/19/17 22:25 83 129/75 92 Room Air 05/19/17 20:31 78 20 112/69 98 Room Air 05/19/17 18:49 77 18 131/69 99 Room Air 05/19/17 17:09 36.8 83 18 11/65 98 Room Air 05/19/17 14:35 81 16 119/69 97 Room Air 05/19/17 13:30 77 16 139/78 92 Room Air 05/19/17 12:51 78 18 126/74 96 Room Air 05/19/17 11:56 76 16 120/65 96 Room Air 05/19/17 10:30 84 16 123/76 100 Room Air 05/19/17 10:13 100 Room Air 05/19/17 09:21 36.9 88 18 118/66 100 Room Air Physical Exam General Appearance: WD/WN, + moderate distress Eyes: normal inspection, sclerae normal Neck: supple, no JVD Respiratory/Chest: chest non-tender, lungs clear Cardiovascular: regular rate, rhythm, no murmur Abdomen: normal bowel sounds, non tender, soft Extremities: + pertinent finding (point tenderness to later hip) Neurologic/Psychiatric: alert, oriented x 3 Laboratory Results Last 24 Hours Test 05/19/17 10:52 05/19/17 11:13 05/20/17 05:39 White Blood Count 3.83 K/uL 3.95 K/uL Red Blood Count 4.83 M/uL 4.48 M/uL Hemoglobin 8.6 g/dL 8.1 g/dL Hematocrit 28.7 % 26.4 % Mean Corpuscular Volume 59.4 fL 58.9 fL Mean Corpuscular Hemoglobin 17.8 pg 18.1 pg Mean Corpuscular Hemoglobin Concent 30.0 g/dl 30.7 g/dl Platelet Count 72 K/uL 90 K/uL Neutrophils (%) (Auto) 78.3 % Lymphocytes (%) (Auto) 6.0 % Monocytes (%) (Auto) 14.9 % Eosinophils (%) (Auto) 0.5 % Basophils (%) (Auto) 0.3 % Neutrophils # (Auto) 3.00 K/uL Lymphocytes # (Auto) 0.23 K/uL Monocytes # (Auto) 0.57 K/uL Eosinophils # (Auto) 0.02 K/uL Basophils # (Auto) 0.01 K/uL RDW Standard Deviation 40.8 fL 39.8 fL RDW Coefficient of Variation 19.1 % 18.9 % Immature Granulocyte % (Auto) 0.0 % Immature Granulocyte # (Auto) 0.00 K/uL Platelet Estimate DECREASED DECREASED Hypochromasia PRESENT Anisocytosis PRESENT Microcytosis PRESENT Ovalocytes 1+ Prothrombin Time 10.6 SECONDS Prothromb Time International Ratio 1.0 Activated Partial Thromboplast Time 28.0 SECONDS Partial Thromboplastin Ratio 1.1 Sodium Level 139 mmol/L 135 mmol/L Potassium Level 4.1 mmol/L 3.4 mmol/L Chloride Level 106 mmol/L 102 mmol/L Carbon Dioxide Level 26 mmol/L 26 mmol/L Anion Gap 8.0 mmol/L 7.0 mmol/L Blood Urea Nitrogen 8 mg/dl 11 mg/dl Creatinine 0.73 mg/dl 0.89 mg/dl Est Creatinine Clear Calc Drug Dose 75.2 ml/min 61.7 ml/min Estimated GFR () 103.0 81.1 Estimated GFR (Non- 88.9 70.0 BUN/Creatinine Ratio 11.1 12.6 Random Glucose 94 mg/dl 86 mg/dl Calcium Level 8.8 mg/dl 8.4 mg/dl Urine Color YELLOW Urine Appearance CLEAR Urine pH 7.0 Urine Specific [place] 1.007 Urine Protein NEG Urine Glucose (UA) NEG Urine Ketones NEG Urine Occult Blood NEG Urine Nitrite NEG Urine Bilirubin NEG Urine Urobilinogen NEG Urine Leukocyte Esterase NEG Assessment and Plan 62F presents with acute on chronic low back pain with history of ankylosing spondylitis, Imaging in the ER CT shows, Increase in moderate retroperitoneal lymphadenopathy favoring leukemia/lymphoma. Moderate to severe central canal stenosis at L4-L5. Grade I anterolisthesis of L4 and L5 w/facet arthrosis in moderate to severe central canal, severe right and mild to moderate left foraminal narrowing. left hip pain and calcific tendonitis will consider intra articular injection, will also use pain medicine as below Low back pain/LLE pain, ankylosing spondylitis, MRI shows Progressively worsened retroperitoneal adenopathy, moderate to severe central canal, severe right and mild to moderate left foraminal narrowing, central canal stenosis has slightly worsened from previous -Lidoderm patch -Toradol 15 mg IV q6h prn pain -Increased oxycodone ER to 40 mg PO BID -Decrease home oxycodone IR to 10 mg PO q4h prn pain -Continue Flexeril 10 mg PO TID -Consult pain management CLL/SLL--stable, between chemo treatments. Next treatment in 2 weeks Benadryl for itching Hypothyroidism--h/o thyroid cancer s/p thyroidectomy -Continue Synthroid 175 mcg PO qd Sjogren's Salagen 5 mg PO TID Atrial tachycardia/SVT-- Toprol XL 50 mg PO BID. Takes additional Toprol 25 mg with the 50 mg if needed for palpitations and acute tachycardia DVT prophylaxis-Enoxaparin 40 mg SC q24h -DAVIDE hose and SCDs Code Status -Level I, FULL RESUSCITATION STATUS
--- NOTE | 2017-05-20 09:00 | Medical Student: [facility] ---
Med Student Progress Note Date of Service May 20, 2017. Subjective Pt evaluation today including: conversation w/ patient Patient is still in significant amount of pain. Asked for IV Dilaudid. Has some nausea and abd pain. Feels intermittently SOB but this is baseline. Review of Systems Constitutional: No fever, No chills ENT: No unusual epistaxis, No sore throat Respiratory: + shortness of breath (intermittent), No cough, No sputum Cardiac: No chest pain, No orthopnea Abdomen: + pain (related to chemotherapy), + nausea (related to chemotherapy), No vomiting Musculoskeletal: + joint pain, + muscle pain, + problem reported (Pain in left lower back, radiating to hip, groin, LLE; sharp/shooting in nature) Female : No dysuria, No urinary frequency Neurologic: + weakness, No numbness/tingling Endo: + fatigue, No excessive urination Skin: No rash, No itch Objective Vital Signs Date Time Temp Pulse Resp B/P (MAP) Pulse Ox O2 Delivery O2 Flow Rate FiO2 05/20/17 07:20 36.6 81 18 122/74 (90) 96 Room Air 05/20/17 02:12 Room Air 05/20/17 01:22 36.8 84 20 126/67 (86) 97 Room Air 05/19/17 22:50 36.8 86 20 129/67 (87) 97 05/19/17 22:50 36.8 86 20 126/67 Room Air 05/19/17 22:33 83 20 129/75 93 05/19/17 22:25 83 129/75 92 Room Air 05/19/17 20:31 78 20 112/69 98 Room Air 05/19/17 18:49 77 18 131/69 99 Room Air 05/19/17 17:09 36.8 83 18 11/65 98 Room Air 05/19/17 14:35 81 16 119/69 97 Room Air 05/19/17 13:30 77 16 139/78 92 Room Air 05/19/17 12:51 78 18 126/74 96 Room Air 05/19/17 11:56 76 16 120/65 96 Room Air 05/19/17 10:30 84 16 123/76 100 Room Air 05/19/17 10:13 100 Room Air 05/19/17 09:21 36.9 88 18 118/66 100 Room Air Physical Exam General Appearance: WD/WN, + mild distress Eyes: bilateral eyes normal inspection ENT: normal ENT inspection, hearing grossly normal Neck: supple, no adenopathy, + thyroid abnormalities (absent) Respiratory/Chest: chest non-tender, lungs clear, normal breath sounds Cardiovascular: regular rate, rhythm, no edema Abdomen: normal bowel sounds, soft, + tenderness (diffuse) Extremities: normal inspection, no pedal edema, + pertinent finding (TTP in LLE , hip, groin; ROM limited by pain at left hip, knee) Neurologic/Psychiatric: no motor/sensory deficits, alert, normal mood/affect, oriented x 3 Skin: normal color, warm/dry Laboratory Results Last 24 Hours Test 05/19/17 10:52 05/19/17 11:13 05/20/17 05:39 White Blood Count 3.83 K/uL 3.95 K/uL Red Blood Count 4.83 M/uL 4.48 M/uL Hemoglobin 8.6 g/dL 8.1 g/dL Hematocrit 28.7 % 26.4 % Mean Corpuscular Volume 59.4 fL 58.9 fL Mean Corpuscular Hemoglobin 17.8 pg 18.1 pg Mean Corpuscular Hemoglobin Concent 30.0 g/dl 30.7 g/dl Platelet Count 72 K/uL 90 K/uL Neutrophils (%) (Auto) 78.3 % Lymphocytes (%) (Auto) 6.0 % Monocytes (%) (Auto) 14.9 % Eosinophils (%) (Auto) 0.5 % Basophils (%) (Auto) 0.3 % Neutrophils # (Auto) 3.00 K/uL Lymphocytes # (Auto) 0.23 K/uL Monocytes # (Auto) 0.57 K/uL Eosinophils # (Auto) 0.02 K/uL Basophils # (Auto) 0.01 K/uL RDW Standard Deviation 40.8 fL 39.8 fL RDW Coefficient of Variation 19.1 % 18.9 % Immature Granulocyte % (Auto) 0.0 % Immature Granulocyte # (Auto) 0.00 K/uL Platelet Estimate DECREASED DECREASED Hypochromasia PRESENT Anisocytosis PRESENT Microcytosis PRESENT Ovalocytes 1+ Prothrombin Time 10.6 SECONDS Prothromb Time International Ratio 1.0 Activated Partial Thromboplast Time 28.0 SECONDS Partial Thromboplastin Ratio 1.1 Sodium Level 139 mmol/L 135 mmol/L Potassium Level 4.1 mmol/L 3.4 mmol/L Chloride Level 106 mmol/L 102 mmol/L Carbon Dioxide Level 26 mmol/L 26 mmol/L Anion Gap 8.0 mmol/L 7.0 mmol/L Blood Urea Nitrogen 8 mg/dl 11 mg/dl Creatinine 0.73 mg/dl 0.89 mg/dl Est Creatinine Clear Calc Drug Dose 75.2 ml/min 61.7 ml/min Estimated GFR () 103.0 81.1 Estimated GFR (Non- 88.9 70.0 BUN/Creatinine Ratio 11.1 12.6 Random Glucose 94 mg/dl 86 mg/dl Calcium Level 8.8 mg/dl 8.4 mg/dl Urine Color YELLOW Urine Appearance CLEAR Urine pH 7.0 Urine Specific [place] 1.007 Urine Protein NEG Urine Glucose (UA) NEG Urine Ketones NEG Urine Occult Blood NEG Urine Nitrite NEG Urine Bilirubin NEG Urine Urobilinogen NEG Urine Leukocyte Esterase NEG Assessment and Plan Assessment and Plan: Assessment: This is a 62-year-old female with a history of CLL/SLL, Sjgren syndrome, ankylosing spondylitis, DVT/PE, a-tach/SVT, and thyroid cancer s/p thyroidectomy who presented to the ED 05/19 with LLE and left lower back/hip/ groin pain without hx of trauma. She has had this pain for one week and initially believed it was her typical post-chemotherapy pain, but it worsened significantly two days ago. The pain shoots down into her foot intermittently and is sharp and burning in nature. Imaging in the ER, CT/MRI, shows increase in moderate retroperitoneal lymphadenopathy favoring leukemia/lymphoma; moderate to severe central canal stenosis at L4-L5; grade I anterolisthesis of L4 and L5 w/facet arthrosis in moderate to severe central canal, severe right and mild to moderate left foraminal narrowing. Xray of left hip shows calcific trochanteric bursa but no fracture or bony changes. DDx includes trochanteric bursitis, central canal narrowing/worsening ankylosing spondylitis, sciatic nerve pain, chemo-related neuropathy, musculoskeletal pain, DVT, and others. Plan: Left lower leg/thigh pain, left lower back/hip pain - Toradol 15 mg IV q6h - Increase oxycodone ER to 40 mg PO BID - Lidocaine pain patch - Continue Flexeril 10 mg PO TID - Can use heating pad PRN - Consult pain management CLL/SLL - Most recent chemotherapy was 05/07; next is in 2 weeks - Stable between treatments Anemia - Based on low MCV/MCHC, likely chronic - Hb is 8.1 05/20 - Consider transfusion in symptomatic or Hb falls below 7 Hypothyroid - Hx of thyroid cancer, s/p thyroidectomy - Continue Synthroid 175 mcg PO daily Sjgren syndrome - Salagen 5 mg PO TID A-tach/SVT - Continue metoprolol 50 mg PO BID; per home regimen, can add additional 25 mg with palpitations - PRN Lopressor for palpitations DVT/PE prophylaxis - Enoxaparin 40 mg sub-Q daily - Gala Dick Full code
--- NOTE | 2017-05-20 09:58 | DIAGNOSTIC IMAGING REPORT ---
L HIP UNILATERAL 2 VIEWS CLINICAL HISTORY: fracture trauma. Pain. COMPARISON: None. DISCUSSION: The bones and joint spaces appear intact. There is no evidence of fracture, dislocation or bony disease. Soft tissue calcifications adjacent to the greater trochanter consistent with calcific trochanteric bursitis IMPRESSION: 1. No acute bony abnormality. 2. Study specifically negative for fracture. 3. Calcific trochanteric bursitis. The above report was generated using voice recognition software. It may contain grammatical, syntax or spelling errors. Electronically signed by: Mauricio Moy M.D. 05/20/2017 9:57 AM Dictated Date/Time: 05/20/2017 9:53 AM
[2017-05-20] MEDS: ONDANSETRON INJ 2 MG/ML 2 ML VIAL IV PRN (10:07)
[2017-05-20] MEDS: PILOCARPINE HCL 5 MG TAB PO SCH ×3 (10:08→21:56)
[2017-05-20] MEDS: MECLIZINE HCL 25 MG TAB PO SCH ×4 (10:09→21:56)
[2017-05-20] MEDS: POTASSIUM CHLORIDE 10 MEQ TABCR PO SCH ×3 (10:10→20:00)
[2017-05-20] MEDS: CETIRIZINE HCL 10 MG TAB PO SCH (10:10)
[2017-05-20] MEDS: PANTOprazole SOD 40 MG TAB PO SCH ×2 (10:10→21:56)
[2017-05-20] MEDS: METOPROLOL SUCC 50MG EXT REL TAB PO SCH ×2 (10:11→21:56)
[2017-05-20] MEDS: FUROSEMIDE 40 MG TAB PO SCH (10:11)
[2017-05-20] MEDS: TRIAMCINOLONE ACET NASAL SPRAY 10.8ML BTL NAE SCH ×2 (10:12→21:46)
[2017-05-20] MEDS: TOBRAMYCIN/DEXAMETHASONE OPH SUSP 2.5 ML BTL OPB SCH ×2 (10:12→21:45)
[2017-05-20] MEDS: OFLOXACIN 0.3% OP SOLN 5 ML BTL OPB SCH ×4 (10:12→21:45)
[2017-05-20] MEDS: LIDODERM (LIDOCAINE) PATCH 5% TD SCH (10:13)
[2017-05-20] MEDS: ENOXAPARIN 40 MG/0.4 ML SYR SQ SCH (10:17)
[2017-05-20] MEDS ORDERED: HYDROmorphone INJ 0.5 MG/0.5 ML SYR IV STA (10:30)
--- NOTE | 2017-05-20 10:42 | HISTORY & PHYSICAL EXAMINATION ---
DATE OF ADMISSION: 05/19/2017 CHIEF COMPLAINT: Left hip pain. HISTORY OF PRESENT ILLNESS: Diana is a delightful lady. She is 62. She is battling leukemia and lymphoma, history also of thyroid carcinoma. She has multiple other issues tachycardia, SVT, migraines, history of GERD as well. She presented to the Emergency Room yesterday with extreme left lower extremity difficulty really in the hip and groin region. It was thought to be early on possibly related to her spine. At first glance this morning I think it is hip and femur all the way. I do not think it is truly spine related. The anatomic distribution is more in the hip, thigh, inguinal region, circumferential versus the posterior sciatica nerve pain which would be consistent with spondylolisthesis. PAST SURGICAL HISTORY: Cholecystectomy, ERCP, hysterectomy. PAST MEDICAL HISTORY: History again of ankylosing spondylitis and chronic lymphocytic leukemia. FAMILY HISTORY: Carcinoma. SOCIAL HISTORY: Nonsmoker, nonalcohol user. ALLERGIES: MULTIPLE. MEDICATIONS: Schedule listed, there are greater than 20. REVIEW OF SYSTEMS: She denies any fevers, sweats, chills, injury, trauma. Only thing positive is of musculoskeletal left lower extremity difficulty and low back pain. She reiterates to me today that she has truly no back pain. PHYSICAL EXAMINATION: GENERAL: She is alert, oriented woman. VITAL SIGNS: Blood pressure 130/80, respirations 18, pulse 83 regular, afebrile. EXTREMITIES: She has pain with her left knee, can barely rock her left femur, any pain with flexion, extension gets her remitting pain to left inguinal groin region. There is no leg length discrepancy. She can dorsiflex, plantarflex. She has adequate muscle tone, no atrophy. IMAGES: MRI scan of the spine demonstrate no acute fracture or subluxation. There is moderate increase in retroperitoneal lymphadenopathy which would be consistent with her lymphoma. There is moderate to severe canal stenosis of L4-L5 and low grade spondylolisthesis at L4-L5. ASSESSMENT: Delightful young lady with multiple medical problems, multiple allergies and 2 types of cancer with left hip and groin pain. I believe her problem is her left hip groin femur versus spine and in this case I think it is more from the area of the left hip. It may be a metastatic focus or stress fracture or avascular necrosis would be my estimation based on her clinical story. DISPOSITION: We will get a plain x-ray for verification. If that is negative, I would simply get an MRI scan of left hip. She is not a great candidate for surgical intervention.
--- NOTE | 2017-05-20 12:14 | Pain Management Consultation ---
Pain Management Consultation Date of Consultation May 20, 2017. Reason for Consultation Left leg pain Pain Location 1 - 2 - History This is a 62-year-old female that has been seen in the [facility] for left leg pain and weakness. Patient does have a significant history of CLL/ SLL and currently undergoing treatment at [facility] monthly, last treatment was 2 weeks ago. Patient states that over the last 1 or 2 she has noticed progressive pain in the left lateral hip and a spasming radiating into the left groin. Patient does also have a significant history of lumbar stenosis , Sjgren syndrome, ankylosing spondylitis, rheumatoid arthritis, fibromyalgia, hx of DVT/PE. She admits to walking with crutches chronically because her legs are always painful to weight bear at her baseline. At baseline, there is pain in the bilateral lower extremities to mild palpation. The pain in the left hip and groin is new. There is reported left leg weakness due to pain. The pain is aggravated with bending forward and with hip flexion. Pain is rated 10/10. She is taking OxyContin 40mg BID and Oxycodone 10mg x 4 hours, and Flexeril 10mg TID. No constitutional complaints. There is mild chronic low back pain which is unchanged. Case discussed with Dr. Nidhi Leavitt Past Medical/Surgical History (1) Cholecystectomy (2) Hysterectomy (3) RLL/SLL (4) CLL (chronic lymphocytic leukemia) (5) ERCP (6) Central stenosis of spinal canal (7) Thrombocytopenia (8) Anemia (9) Leg pain, left (10) History of thyroidectomy (11) Sjoegren syndrome (12) Ankylosing spondylitis (13) History of thyroid cancer Family History Cancer (throat, lung, breast, pancreas, colon) Diabetes mellitus Hypertension Myocardial infarction Stroke Social / Work History Smokeless Tobacco Use: No Alcohol Use: none Marital Status: Housing Status: lives with significant other Occupation: disabled Allergies Coded Allergies: Lamotrigine (Verified Allergy, Severe, rash & welts all over body, 05/19/17 ) Topiramate (Verified Allergy, Severe, rash all over body, 05/19/17) Ammonia (Unverified Allergy, Intermediate, RASH, HIVES, BREATHING DIFFICULTY, 05/19/17) Bromfenac (Verified Allergy, Intermediate, EYELID SWELLING AND SKIN AROUND EYES , BURNING ,EYE PAIN,, 02/17/15) Doxycycline (Unverified Allergy, Intermediate, RASH AND HIVES, 05/19/17) Sheep-derived Products (Verified Allergy, Intermediate, Wool - Rash/Hives , 05/20/17) Tetracycline (Verified Allergy, Intermediate, rash & hives all over body, 05/19/17) Propantheline (Verified Allergy, Mild, RASH AND WHITE FILM ON TONGUE & INSIDE OF MOUTH, 02/17/15) Adhesives (Verified Allergy, Unknown, rash/welts/swelling, infection @ open wounds, 05/19/17) Aminoglycosides (Verified Allergy, Unknown, 02/17/15) Replaces BACITRACIN/NE BEE STING (Verified Allergy, Unknown, 05/19/17) Bacitracin (Verified Allergy, Unknown, Triple Abx: severe rash/welts/ irritation, 05/19/17) Chromium (Verified Allergy, Unknown, Unknown, 05/20/17) Copper (Verified Allergy, Unknown, Unknown, 05/20/17) Dicyclomine (Verified Allergy, Unknown, ., 05/19/17) Manganese (Verified Allergy, Unknown, Unknown, 05/20/17) Mupirocin (Verified Allergy, Unknown, ., 05/19/17) Neomycin (Verified Allergy, Unknown, Triple Abx: severe rash/welts/ irritation, 05/19/17) Replaces BACITRACIN/NE PABA Derivatives (Verified Allergy, Unknown, ., 05/19/17) Polymyxin B (Verified Allergy, Unknown, Triple Abx: severe rash/welts/ irritation, 05/19/17) Sulfamethoxazole w/Trimethoprim (Verified Allergy, Unknown, ., 05/19/17) Zinc (Verified Allergy, Unknown, Unknown, 05/20/17) Trimethobenzamide (Verified Adverse Reaction, Severe, moderate/severe MUSCLE CONTRACTIONS, 05/19/17) Patchouli Oil (Unverified Adverse Reaction, Intermediate, BURNING OF EYES , NOSE, THROAT, AFFECTS BREATHING, 05/19/17) Aspirin (Verified Adverse Reaction, Mild, BRUISING ALL OVER, 05/19/17) Ibuprofen (Verified Adverse Reaction, Mild, BRUISING ALL OVER, 05/19/17) Lavender Oil (Unverified Adverse Reaction, Mild, BURNING OF EYES, NOSE, THROAT, AFFECTS BREATHING., 05/19/17) Pregabalin (Verified Adverse Reaction, Mild, swelling hands/feet, worsening of dry mouth (has Sjogren's), 05/19/17) Prochlorperazine (Verified Adverse Reaction, Mild, severe/extreme MUSCLE CONTRACTIONS, 05/19/17) Loteprednol (Verified Adverse Reaction, Unknown, pain in eyes & irritation , 05/19/17) Medications Current Inpatient Medications Medications (Trade) Dose Ordered Sig/Brandon Route Start Time Stop Time Status Last Admin Dose Admin Enoxaparin Sodium (Lovenox Inj) 40 mg Q24H SQ 05/20/17 09:00 06/19/17 08:59 05/20/17 10:17 40 MG Acetaminophen (Tylenol Tab) 650 mg Q4H PRN PO 05/19/17 19:00 06/18/17 18:59 Al Hydrox/Mg Hydrox/Simethicone (Maalox Max Susp) 15 ml Q4H PRN PO 05/19/17 19:00 06/18/17 18:59 Magnesium Hydroxide (Milk Of Magnesia Susp) 30 ml Q6H PRN PO 05/19/17 19:00 06/18/17 18:59 Polyethylene (Miralax Powder Packet) 17 gm DAILY PRN PO 05/19/17 19:00 06/18/17 18:59 Ondansetron HCl (Zofran Inj) 4 mg Q6H PRN IV 05/19/17 19:00 06/18/17 18:59 05/20/17 10:07 4 MG Ketorolac Tromethamine (Toradol Inj) 15 mg Q6H PRN IV 05/19/17 19:00 05/24/17 18:59 05/20/17 07:50 15 MG Acetaminophen/ Butalbital/ Caffeine (Fioricet Tab) 1 tab Q4H PRN PO 05/19/17 19:15 06/18/17 19:14 05/20/17 01:20 1 TAB Cetirizine HCl (zyrTEC TAB) 10 mg QAM PO 05/20/17 08:00 06/19/17 08:59 05/20/17 10:10 10 MG Cyclobenzaprine HCl (Flexeril Tab) 10 mg TID PO 05/19/17 21:00 06/18/17 20:59 05/20/17 07:45 10 MG Furosemide (Lasix Tab) 60 mg QAM PO 05/20/17 08:00 06/19/17 08:59 05/20/17 10:11 40 MG Levothyroxine Sodium (Synthroid Tab) 175 mcg DAILYBB PO 05/20/17 06:30 06/19/17 06:59 05/20/17 05:12 175 MCG Meclizine HCl (Antivert Tab) 25 mg QID PO 05/19/17 21:00 06/18/17 20:59 05/20/17 10:09 25 MG Metoprolol Succinate (Toprol Xl Tab) 50 mg BID PO 05/19/17 21:00 06/18/17 20:59 05/20/17 10:11 50 MG Ofloxacin (Ocuflox 0.3% Oph Soln) 1 drops QID OPB 05/20/17 08:00 05/30/17 07:59 05/20/17 10:12 1 DROPS Oxycodone HCl (Oxycontin Tab) 40 mg Q12 PO 05/19/17 23:15 06/02/17 23:14 05/20/17 10:10 40 MG Pantoprazole Sodium (Protonix Tab) 40 mg BID PO 05/19/17 21:00 06/18/17 20:59 05/20/17 10:10 40 MG Pilocarpine HCl (Salagen Tab) 5 mg TID PO 05/20/17 08:00 06/19/17 07:59 05/20/17 10:08 5 MG Potassium Chloride (Klor-Con M10) 20 meq BID PO 05/19/17 21:00 06/18/17 20:59 Promethazine HCl (Phenergan Tab) 25 mg Q4H PRN PO 05/19/17 19:15 06/18/17 19:14 Tobramycin/ Dexamethasone (Tobradex Oph Susp) 1 drops BID OPB 05/20/17 08:00 06/19/17 07:59 05/20/17 10:12 1 DROPS Triamcinolone Acetonide (Nasacort Allergy 24hr) 1 sprays BID AUGUST 05/20/17 08:00 06/19/17 07:59 05/20/17 10:12 1 SPRAYS Miscellaneous Information (Order Awaiting Action) 1 ea QS N/A 05/20/17 00:00 06/19/17 00:00 Oxycodone HCl (Roxicodone Immediate Rel Tab) 10 mg Q4H PRN PO 05/19/17 19:15 06/02/17 19:14 05/20/17 07:45 10 MG Lidocaine (Lidoderm Patch 5%) 1 patch QAM TD 05/20/17 08:00 06/19/17 08:59 Miscellaneous (Remove Lidoderm Patch) 1 ea DAILY@21 N/A 05/20/17 21:00 06/19/17 20:59 Diphenhydramine HCl (Benadryl Cap) 25 mg DAILY PRN PO 05/20/17 04:30 06/19/17 04:29 05/20/17 04:08 25 MG Diphenhydramine HCl (Benadryl Cap) 50 mg Q4H PRN PO 05/20/17 08:30 06/19/17 08:29 05/20/17 10:42 50 MG Hydromorphone HCl (Dilaudid Inj) 0.5 mg Q4 PRN IV 05/20/17 10:30 06/03/17 10:29 Hydromorphone HCl (Dilaudid Inj) 1 mg Q4 PRN IV 05/20/17 10:30 06/03/17 10:29 Review of Systems Denies any constitutional, cardiac, pulmonary, neurological, GI, , extremity, endocrine, neuro, ENT, dermatological, or musculoskeletal complaints other than stated in HPI Physical Exam Height & Weight: Height 5 feet, 2.00 inches. Weight 72.000 (Kilograms) 158 (Pounds) Last Vital Signs Documentation Date Time Temp Pulse Resp B/P (MAP) Pulse Ox O2 Delivery O2 Flow Rate FiO2 05/20/17 07:20 36.6 81 18 122/74 (90) 96 Room Air Exam: GENERAL: Mrs. Saenz is a 62 y/o white female that appears older than her stated age. Speech and cognition is intact. Mood and affect is appropriate. Does not appear in acute distress. BACK: Mild diffuse lumbosacral tenderness. There is no paraspinal, quadratus lumborum, piriformis, or gluteal tenderness or spasm. LOWER EXTREMITIES: Negative straight leg raise bilaterally. Patient will actively left hip flex to 30 degrees, she will not allow passive ROM due to pain. There is mild diffuse tenderness of the lower legs, the most exquisite tenderness is at the left greater trochanteric bursa. NEURO: Awake, alert, and oriented x 3. Laboratory Laboratory Results (Last CBC): 05/20/17 05:39 Imaging MRI Findings Lumbar MRI IMPRESSION: 1. Progressively worsened retroperitoneal adenopathy as above from comparison study 01/05/2016 likely correlating with patient's known history of lymphoma/leukemia. 2. Grade 1 anterolisthesis of L4 on L5 with discogenic degenerative changes and facet arthrosis result in moderate to severe central canal, severe right and mild to moderate left foraminal narrowing. The degree of central canal stenosis has slightly worsened from comparison. 3. Additional discogenic degenerative changes and facet arthrosis as above. The above report was generated using voice recognition software. It may contain grammatical, syntax or spelling errors. Electronically signed by: Jarad Sosa M.D. 05/19/2017 5:00 PM Dictated Date/Time: 05/19/2017 4:46 PM Radiology Findings Left hip xray IMPRESSION: 1. No acute bony abnormality. 2. Study specifically negative for fracture. 3. Calcific trochanteric bursitis. The above report was generated using voice recognition software. It may contain grammatical, syntax or spelling errors. Electronically signed by: Mauricio Moy M.D. 05/20/2017 9:57 AM Dictated Date/Time: 05/20/2017 9:53 AM Assessment 1. Greater trochanteric bursitis 2. Moderate to severe lumbar stenosis at L4-5 3. CLL/SLL Recommendations 1. Recommend a left greater trochanteric bursa injection for the patient. Will plan to perform the procedure in the hospital tomorrow morning. She is in agreement. 2. Continue medication regimen.
[2017-05-20 15:18] VITALS: BP 128/72; PULSE 85; TEMP 36.9; O2SAT 98
[2017-05-20] MEDS: HYDROmorphone INJ 0.5 MG/0.5 ML SYR IV PRN (15:38)
--- NOTE | 2017-05-20 15:53 | ORTHOPEDIC PROGRESS NOTE ---
DATE: 05/20/2017 SUBJECTIVE: Diana was seen and examined today with Dr. Montemayor as well. She is a 62-year-old female with a history of lymphoma and leukemia as well as multiple other medical problems reviewed and noted in her chart here with left hip and thigh pain. She says it started about 2 weeks ago roughly after chemotherapy treatment with she said with these chemo medications that she does get worsening back and neck pain with it and joint pain usually. However, this left hip and thigh pain was significantly worse this past weekend. She is unable to really ambulate on it. She has no other complaints at this time. She did say that the pain has traveled into her right side at times, but presently she has no right hip pain. OBJECTIVE: GENERAL: She is alert, oriented, in no distress. LOWER EXTREMITIES: On examination of the left hip today, she is able to actively do a straight leg raise and raise her leg off the bed today. She also has some groin and thigh pain doing so. She has groin and thigh pain with very limited gentle internal and external rotation of the left hip. IMAGING DATA: X-rays were reviewed of the hip which showed no fractures, no bony lesions or any other abnormalities around the left-sided pelvis or proximal femur. She does have on the lateral view, a calcification around the greater trochanter. IMPRESSION: Left hip pain with possible occult fracture versus calcific tendonitis of the hip abductors. PLAN: Again, she was seen and examined by Dr. Montemayor today as well. She has an area of calcification on her x-rays, it is around the greater trochanter. Otherwise, her x-rays to look normal. An MRI has been ordered, though the left hip and femur to done today to rule out an occult fracture of the left hip and femur. [facility] HOSPITALJey
[2017-05-20 16:00] VITALS: O2SAT 98
[2017-05-20] MEDS: PROMETHAZINE HCL 25 MG TAB PO PRN (17:59)
--- NOTE | 2017-05-20 18:26 | DIAGNOSTIC IMAGING REPORT ---
L LOWER EXT NONJOINT WITHOUT HISTORY: 62 years-old Female non traumatic significant hip and femur pain acute left hip and femur pain COMPARISON: Pelvis radiographs 09/13/2016, CT abdomen and pelvis 04/25/2013 TECHNIQUE: Multiplanar multisequence MRI of the left lower extremity was obtained without contrast FINDINGS: There is a 2.3 x 1.8 x 1.8 cm lobulated T1 and T2 hypointense sclerotic body anteromedial to the left greater trochanter and anterior to the proximal femoral neck nicely seen on image 6 series 8 and image 12 series 5. This lesion is interposed between the anterior cortex of the left femoral neck and adjacent thickened iliofemoral ligament which is also nicely seen on image 6 series 8. There is a considerable amount of adjacent soft tissue edema which tracks into the adjacent gluteus medius and vastus lateralis musculature with edema tracking along the myofascial planes between the rectus femoris and vastus lateralis. Extensive bone marrow edema is also noted within the left femoral max and left greater trochanter nicely seen on the coronal STIR images. Mild degenerative changes about the bilateral hips. No definite labral tear identified, however this study is not tailored to assess the intrinsic structures about the left hip.Mild enthesitis noted at the gluteus medius and minimus insertion sites about the greater trochanter. No acute fracture or subluxation identified. Small left knee joint effusion. No adenopathy or acute intrapelvic abnormality identified. Subcentimeter sclerotic foci of the left femoral head and neck suggests bone islands, unchanged. No definite suspicious mass lesions identified. IMPRESSION: 1. Chronic calcific body anteromedial to the left greater trochanter is again seen, interposed between the thickened iliofemoral ligament and anterior cortex of the left femoral neck and greater trochanter causing considerable amount of associated bone marrow edema, and surrounding soft tissue edema which extends into the adjacent gluteus medius and vastus lateralis musculature. Findings are likely secondary to impingement-type sequela of chronic friction/motion about the left hip joint. 2. No definite fracture or suspicious bony lesions identified. 3. Mild enthesitis of the gluteus minimus and medius insertion sites about the greater trochanter. 4. Mild degenerative changes of the bilateral hips. The above report was generated using voice recognition software. It may contain grammatical, syntax or spelling errors. Electronically signed by: Jarad Sosa M.D. 05/20/2017 6:24 PM Dictated Date/Time: 05/20/2017 5:36 PM
[2017-05-20 19:14] VITALS: BP 116/68; PULSE 89; TEMP 36.7; O2SAT 93
[2017-05-20] MEDS: HYDROmorphone INJ 1 MG/ML SYR IV PRN (21:47)
[2017-05-21] VITALS (10 sets, daily range): BP systolic 92–118; BP diastolic 56–77; PULSE 77–87; TEMP 36.6–37; O2SAT 91–100; BMI 28.9
[2017-05-21] MEDS: HYDROmorphone INJ 1 MG/ML SYR IV PRN ×4 (03:26→18:45)
[2017-05-21] MEDS: LEVOTHYROXINE 175 MCG TAB PO SCH (05:44)
[2017-05-21] MEDS: OXYCODONE HCL IR 5 MG TAB (IMMEDIATE RELEASE) PO PRN ×4 (05:44→20:30)
[2017-05-21 06:04] LABS: MEAN CORPUSCULAR HGB CONC 29.9 g/dl (32-36)
[2017-05-21] MEDS: KETOROLAC TROMETHAMINE 15 MG/ML VIAL IV PRN ×2 (06:31→22:58)
[2017-05-21 06:33] LABS: HEMATOCRIT 27.8 % (37-47); HEMOGLOBIN 8.3 g/dL (12.0-16.0); MEAN CELL VOLUME 59.5 fL (80-100); MEAN CORPUSCULAR HEMOGLOBIN 17.8 pg (25-34); RED CELL DISTRIBUTION WIDTH SD 40.5 fL (36.4-46.3); WHITE BLOOD COUNT 3.61 K/uL (4.8-10.8)
[2017-05-21 06:48] LABS: CALCIUM 8.1 mg/dl (8.5-10.1); CREATININE 1.01 mg/dl (0.60-1.20); POTASSIUM 3.3 mmol/L (3.5-5.1)
[2017-05-21 06:55] LABS: PLATELET COUNT 92 K/uL (130-400)
[2017-05-21] MEDS ORDERED: BUPIVACAINE 0.5 % 5 MG/1 ML MPF 30ML VIAL IA ONE (08:30)
[2017-05-21] MEDS ORDERED: BETAMETH SOD PHOS/ACETATE IA 6 MG/ML IA ONE (08:30)
[2017-05-21] MEDS: OFLOXACIN 0.3% OP SOLN 5 ML BTL OPB SCH ×4 (08:39→20:31)
[2017-05-21] MEDS: TRIAMCINOLONE ACET NASAL SPRAY 10.8ML BTL NAE SCH ×2 (08:39→20:31)
[2017-05-21] MEDS: TOBRAMYCIN/DEXAMETHASONE OPH SUSP 2.5 ML BTL OPB SCH ×2 (08:40→20:32)
[2017-05-21] MEDS: OLOPATADINE HYDROCHLORIDE 5 ML BTL OPB SCH ×2 (08:40→20:32)
[2017-05-21] MEDS: MECLIZINE HCL 25 MG TAB PO SCH ×4 (08:40→20:32)
[2017-05-21] MEDS: CYCLOBENZAPRINE HCL 10 MG TAB PO SCH ×3 (08:41→20:33)
[2017-05-21] MEDS: FUROSEMIDE 40 MG TAB PO SCH (08:41)
[2017-05-21] MEDS: CETIRIZINE HCL 10 MG TAB PO SCH (08:42)
[2017-05-21] MEDS: PANTOprazole SOD 40 MG TAB PO SCH ×2 (08:42→20:34)
[2017-05-21] MEDS: PILOCARPINE HCL 5 MG TAB PO SCH ×3 (08:42→20:35)
[2017-05-21] MEDS: METOPROLOL SUCC 50MG EXT REL TAB PO SCH ×2 (08:42→20:35)
[2017-05-21] MEDS: OXYCODONE HCL 20 MG TABCR (OXYCONTIN) PO SCH ×2 (08:43→20:30)
[2017-05-21] MEDS: ONDANSETRON INJ 2 MG/ML 2 ML VIAL IV PRN ×2 (08:43→20:27)
[2017-05-21] MEDS: ENOXAPARIN 40 MG/0.4 ML SYR SQ SCH (08:43)
[2017-05-21] MEDS: LIDODERM (LIDOCAINE) PATCH 5% TD SCH (08:50)
[2017-05-21] MEDS ORDERED: POTASSIUM CHLORIDE 20 MEQ TABCR PO ONE (09:30)
[2017-05-21] MEDS ORDERED: MAGNESIUM SULFATE 1GM / D5W 1 GM in PREMIXED IN D5W 100 ML IV ONE (09:30)
[2017-05-21] MEDS ORDERED: NURSING VERBAL MED ORDER ONE ×2 (10:30→13:00)
--- NOTE | 2017-05-21 12:13 | Pain Management Progress Note ---
Pain Management Progress Note Date of Service May 21, 2017. Subjective Pain is slightly worse today than it was yesterday. She states that the pain is worse from the hip MRI that was performed yesterday as she had to move the hip around. She describes a throbbing and aching pain along the left lateral hip radiating into the groin. Her left SI joint pain has been aggravated from the MRI as well. Patient rates her pain a 9/10 currently. The medications - OxyContin, Oxycodone, Flexeril, and Toradol are providing mild pain relief. She has seen Dr. Montemayor yesterday for orthopedic evaluation. She has seen Dr. Montemayor for many years as an outpatient. Patient denies any constitutional complaints, foot drop, or true radicular symptoms down the legs. Case discussed with Dr. Nidhi Leavitt Pain Location 1 - 2 - 3 - Objective Vital Signs: Last Vital Signs Documentation Date Time Temp Pulse Resp B/P (MAP) Pulse Ox O2 Delivery O2 Flow Rate FiO2 05/21/17 08:13 97 Room Air 05/21/17 08:06 36.7 77 16 100/66 (77) Physical Exam: GENERAL: Mrs. Pan is a 62 y/o white female that appears older than her stated age. Speech and cognition is intact. Mood and affect is appropriate. Does not appear in acute distress. BACK: Mild diffuse lumbosacral tenderness. Exquisite tenderness of the left SI joint. There is no paraspinal, quadratus lumborum, piriformis, or gluteal tenderness or spasm. LOWER EXTREMITIES: Negative straight leg raise bilaterally. There is exquisite tenderness is at the left greater trochanteric bursa. NEURO: Awake, alert, and oriented x 3. Laboratory Laboratory Findings 05/21/17 05:34 Assessment 1. Greater trochanteric bursitis 2. Moderate to severe lumbar stenosis at L4-5 3. CLL/SLL 4. Sacroiliitis Recommendations 1. As the patient is having a thorough workup of the hip by orthopedics and she is a long-standing patient of Dr. Montemayor's, I will defer injections to them. Patient is in agreement. 2. Continue medication regimen.
--- NOTE | 2017-05-21 12:23 | PROGRESS NOTE ---
DATE: 05/21/2017 SUBJECTIVE: Diana is a 62-year-old female who we saw yesterday for her left hip pain. She continued with the left hip pain in the lateral thigh and into groin. She has had the MRI done yesterday. She says that from the positioning of the MRI She has had quite a bit of low back pain, which she describes around her SI joint and was asking about injections for that today. OBJECTIVE: GENERAL: She is alert, oriented in no distress. EXTREMITIES: Examination of the left hip today, she still has pain with active hip flexion. She is tender to palpation laterally over the trochanteric bursa area. IMAGING STUDIES: An MRI was reviewed, which shows a chronic calcification around the left greater trochanter. There is significant edema around the soft tissues and the femoral neck area around this calcification as well. No signs of any fracture. IMPRESSION: Left hip pain, trochanteric bursitis and calcific tendinitis. PLAN: We did review her MRI, educated her on this problem with her hip. It's similar situation to a calcific tendinitis with a rotator cuff. We talked about treatment for her today. We offered her an injection. She would like to proceed with that. We will plan to do that right now this morning. She was seen by pain management clinic too. She was asking about getting injections into her SI joint area on her back. We would defer those injections today. She is going to talk to Dr. Ren about performing these injections. We will write her for some physical therapy for gait training. She is weight bearing as tolerated. We will continue to follow her during her hospital stay. She was seen and examined by Dr. Montemayor today as well. PROCEDURE NOTE: The left hip was sterilely prepped with alcohol and using aseptic technique, we injected 2 mL of Celestone and 8 mL of Marcaine around the trochanteric bursa. She tolerated the procedure well. There were no complications. SONIA
[2017-05-21] MEDS: KCL 10 MEQ PO SCH ×2 (12:24→20:34)
[2017-05-21] MEDS ORDERED: KCL 10 MEQ PO ONE (14:00)
--- NOTE | 2017-05-21 18:19 | Progress Note ---
Subjective Date of Service: May 21, 2017. Subjective Patient is pleased consider left hip injected is no concern about her SI joints she has no other complaints or problems other than pain in her back she feels the SI joint pain was from positioning for her MRI scan Problem List Medical Problems: (1) Anemia Status: Acute (2) Back pain Status: Acute (3) Central stenosis of spinal canal Status: Acute (4) Leg pain, left Status: Acute (5) Thrombocytopenia Status: Acute Review of Systems Constitutional: + weakness, No fever, No chills, No fatigue Respiratory: No cough, No shortness of breath Cardiac: No chest pain, No edema Abdomen: No pain, No nausea, No vomiting, No diarrhea Musculoskeletal: + joint pain, + muscle pain, No swelling Female : No dysuria, No urinary frequency Objective Vital Signs Date Time Temp Pulse Resp B/P (MAP) Pulse Ox O2 Delivery O2 Flow Rate FiO2 05/21/17 16:00 91 Room Air 05/21/17 14:27 36.8 87 16 100/62 (75) 91 Room Air 05/21/17 11:14 36.7 81 16 118/69 (85) 92 Room Air 05/21/17 10:04 Room Air 05/21/17 08:13 97 Room Air 05/21/17 08:06 36.7 77 16 100/66 (77) 97 Room Air 05/21/17 03:49 36.6 83 20 116/67 (83) 100 Room Air 05/21/17 01:50 Room Air 05/21/17 00:29 36.7 80 20 117/77 (90) 97 Room Air 05/20/17 19:14 36.7 89 16 116/68 (84) 93 Room Air Physical Exam General Appearance: WD/WN, + mild distress Eyes: normal inspection, sclerae normal Respiratory/Chest: chest non-tender, lungs clear, normal breath sounds Cardiovascular: regular rate, rhythm, no murmur Abdomen: normal bowel sounds, non tender, soft Extremities: no pedal edema, no calf tenderness Neurologic/Psychiatric: alert, oriented x 3 Laboratory Results Last 24 Hours Test 05/21/17 05:34 White Blood Count 3.61 K/uL Red Blood Count 4.67 M/uL Hemoglobin 8.3 g/dL Hematocrit 27.8 % Mean Corpuscular Volume 59.5 fL Mean Corpuscular Hemoglobin 17.8 pg Mean Corpuscular Hemoglobin Concent 29.9 g/dl RDW Standard Deviation 40.5 fL RDW Coefficient of Variation 19.0 % Platelet Count 92 K/uL Platelet Estimate DECREASED Sodium Level 135 mmol/L Potassium Level 3.3 mmol/L Chloride Level 101 mmol/L Carbon Dioxide Level 27 mmol/L Anion Gap 7.0 mmol/L Blood Urea Nitrogen 15 mg/dl Creatinine 1.01 mg/dl Est Creatinine Clear Calc Drug Dose 54.2 ml/min Estimated GFR () 69.6 Estimated GFR (Non- 60.0 BUN/Creatinine Ratio 14.7 Random Glucose 83 mg/dl Calcium Level 8.1 mg/dl Assessment and Plan 62F presents with acute left hip pain and now acute on on chronic low back pain with history of ankylosing spondylitis, Imaging in the ER CT shows, Increase in moderate retroperitoneal lymphadenopathy favoring leukemia/lymphoma. left hip pain and calcific tendonitis MRI did not show any bony fractures the patient underwent a hip bursa trochanteric injection, will also continue to use pain medicine Low back pain/LLE pain, ankylosing spondylitis, MRI shows Progressively worsened retroperitoneal adenopathy, moderate to severe central canal, severe right and mild to moderate left foraminal narrowing, central canal stenosis has slightly worsened from previous the patient feels her back pain is typical after chemotherapy now has some sacroiliac pain we'll discuss with pain management on 05/22 may be more amenable to office referral for possible injections will continue her oral and topical pain control -Lidoderm patch -Toradol 15 mg IV q6h prn pain -Increased oxycodone ER to 40 mg PO BID -Decrease home oxycodone IR to 10 mg PO q4h prn pain -Continue Flexeril 10 mg PO TID CLL/SLL--stable, between chemo treatments. Next treatment in 2 weeks Benadryl for itching has improved her symptoms Hypothyroidism--h/o thyroid cancer s/p thyroidectomy Clinically stable on Synthroid 175 mcg PO qd Sjogren's no complaints with Salagen 5 mg PO TID Atrial tachycardia/SVT--her heart rate has been controlled with Toprol XL 50 mg PO BID. Takes typically additional Toprol 25 mg with the 50 mg if needed for palpitations and acute tachycardia DVT prophylaxis-Enoxaparin 40 mg SC q24h -DAVIDE roche and SCDs Code Status -Level I, FULL RESUSCITATION STATUS
[2017-05-22] VITALS (8 sets, daily range): BP systolic 98–128; BP diastolic 61–73; PULSE 75–90; TEMP 36.4–37; O2SAT 94–99; Ht 157.5 cm; Wt 69.9 kg
[2017-05-22] MEDS: OXYCODONE HCL IR 5 MG TAB (IMMEDIATE RELEASE) PO PRN ×2 (03:56→11:47)
[2017-05-22 06:11] LABS: HEMATOCRIT 29.7 % (37-47); HEMOGLOBIN 9.2 g/dL (12.0-16.0); MEAN CELL VOLUME 58.6 fL (80-100); MEAN CORPUSCULAR HEMOGLOBIN 18.1 pg (25-34); RED CELL DISTRIBUTION WIDTH SD 39.8 fL (36.4-46.3)
[2017-05-22 06:34] LABS: CREATININE 0.84 mg/dl (0.60-1.20)
[2017-05-22 06:35] LABS: CALCIUM 8.8 mg/dl (8.5-10.1); PLATELET COUNT 119 K/uL (130-400); POTASSIUM 4.5 mmol/L (3.5-5.1)
[2017-05-22] MEDS: LEVOTHYROXINE 175 MCG TAB PO SCH (06:35)
[2017-05-22] MEDS: LIDODERM (LIDOCAINE) PATCH 5% TD SCH (07:39)
[2017-05-22] MEDS: ONDANSETRON INJ 2 MG/ML 2 ML VIAL IV PRN ×2 (07:44→22:23)
[2017-05-22] MEDS: HYDROmorphone INJ 1 MG/ML SYR IV PRN ×3 (07:44→21:55)
[2017-05-22] MEDS: TRIAMCINOLONE ACET NASAL SPRAY 10.8ML BTL NAE SCH ×2 (07:48→19:38)
[2017-05-22] MEDS: TOBRAMYCIN/DEXAMETHASONE OPH SUSP 2.5 ML BTL OPB SCH ×2 (07:49→19:41)
[2017-05-22] MEDS: OLOPATADINE HYDROCHLORIDE 5 ML BTL OPB SCH ×2 (07:49→19:40)
[2017-05-22] MEDS: MECLIZINE HCL 25 MG TAB PO SCH ×4 (07:49→19:37)
[2017-05-22] MEDS: OFLOXACIN 0.3% OP SOLN 5 ML BTL OPB SCH ×4 (07:49→19:41)
[2017-05-22] MEDS: CYCLOBENZAPRINE HCL 10 MG TAB PO SCH ×3 (07:49→19:37)
[2017-05-22] MEDS: OXYCODONE HCL 20 MG TABCR (OXYCONTIN) PO SCH ×2 (07:50→21:00)
[2017-05-22] MEDS: CETIRIZINE HCL 10 MG TAB PO SCH (07:50)
[2017-05-22] MEDS: PILOCARPINE HCL 5 MG TAB PO SCH ×3 (07:50→19:37)
[2017-05-22] MEDS: PANTOprazole SOD 40 MG TAB PO SCH ×2 (07:50→19:38)
[2017-05-22] MEDS: FUROSEMIDE 40 MG TAB PO SCH (07:50)
[2017-05-22] MEDS: METOPROLOL SUCC 50MG EXT REL TAB PO SCH ×2 (07:51→20:52)
[2017-05-22] MEDS: ENOXAPARIN 40 MG/0.4 ML SYR SQ SCH (07:51)
[2017-05-22] MEDS: KCL 10 MEQ PO SCH ×2 (07:52→19:40)
[2017-05-22] MEDS ORDERED: BUPIVACAINE 0.5 % 5 MG/1 ML PF 10ML VIAL ONE (08:01)
[2017-05-22] MEDS ORDERED: TRIAMCINOLONE ACET 40 MG/ML VIAL ONE (08:02)
[2017-05-22] MEDS ORDERED: KETOROLAC TROMETHAMINE 30 MG/ML VIAL ONE (08:22)
--- NOTE | 2017-05-22 09:21 | Pain Management Progress Note ---
Pain Management Progress Note Date of Service May 22, 2017. Subjective Patient reporting persisting discomfort in the left gluteal/SI joint location which was reportedly aggravated during MRI earlier this week due to positioning. She reports the pain is localized to the gluteal area left greater than right sided as the left lateral hip pain is slightly improved after the trochanteric bursae injection performed yesterday. She reports undergoing prior injections in the gluteal areas with significant relief in the past while under the care of Dr. Kramer. Minimal radiation of discomfort to the groin area. Increased discomfort with any movement. Patient reporting spasms as well. Medications are effective at reducing the pain at this time. She denies a true radicular pattern, paraesthesias or dysesthesias. No bowel or bladder incontinence. Plan of care discussed with Dr. Nidhi Leavitt. Pain Location 1 - Objective Vital Signs: Last Vital Signs Documentation Date Time Temp Pulse Resp B/P (MAP) Pulse Ox O2 Delivery O2 Flow Rate FiO2 05/22/17 07:20 36.5 75 16 103/62 (76) 95 Room Air Physical Exam: General: Patient lying quietly upon entering the room in no acute distress. Speech and thought process appropriate. Mood and affect appropriate. Cognition intact. Back/spine: Patient able to logroll towards her right side with minimal discomfort. Patient is minimally tender over the SI joint to provocative testing. Nontender over the midline. No facet joint tender to provocative testing. Patient exquisitely tender through the left mid gluteal upon deep palpation. Minimally tender correspondingly on the right. Spasm is appreciated as well as a few small scattered minor trigger points at site of maximal tenderness. Lower extremities: SLR negative bilaterally. Residual tenderness is noted over the greater trochanter. No evidence of edema, erythema or skin breakdown at site of trochanteric bursa injection performed yesterday. Piriformis maneuver is equivocal bilaterally. Neurologic: Cranial nerves grossly intact. Ambulatory function not witness. Laboratory Laboratory Findings 05/22/17 05:40 Assessment 1. Myofascial pain with spasm-left greater than right gluteal 2. Left trochanteric bursitis/calcific tendinitis-status post trochanteric bursa injection performed 05/21/[address] Montemayor 3. Moderate to severe lumbar spinal canal stenosis at L4-5 per MRI 4. CLL/SLL Recommendations 1. We discussed various treatment options. Patient requesting local trigger point injection which will be completed at today's visit. Refer to procedure note below. 2. Patient will maintain current medications as prescribed without change. 3. At this time it does not appear that SI joint injection would be recommended given that her pain appears to be predominantly myofascial in nature. Re-evaluation should the patient fail to respond to determine her potential candidacy for SI joint injection which would be completed in the outpatient setting. This was explained to the patient and she verbalized understanding. TRIGGER POINT INJECTION Diagnosis: Myofascial pain with spasm Side/Level injected: Left gluteal 3, right gluteal 2 Surgeon: Gagan CARRILLO Prior to starting, the Patients diagnosis and the procedure were reviewed with the patient in detail. Possible risks and complications including infection, bleeding, damage to surrounding structures and increased pain were discussed. Alternative therapies were also reviewed. Patients questions were answered and they agreed to proceed. Informed consent was obtained. Allergies and medication list was reviewed. The patient was brought to the procedure room and placed in prone position. Immediately prior to starting the procedure, a ``time out was conducted with the staff and the patient where the patient was identified, proposed procedure was verified, consent was reviewed and the proper site for the planned procedure was identified. Patient was not given any intravenous sedation and constant verbal contact was maintained throughout the procedure. On examination, no signs of skin breakdown or infection were noted at the injection site. The site was cleansed with ChloraPrep. Palpation over the site produced patients typical pain. Using an 1.5 inch 25-gauge needle, the above muscles were injected in similar fashion after negative aspiration for blood with 1.5-2 mL of a combination of 7 mL of 0.5% bupivacaine containing 20 milligram of Kenalog and 30 mg of ketorolac without complication. Needle was withdrawn and hemostasis noted. Band-Aid was applied where needed. Patient tolerated the procedure uneventfully without complications.
[2017-05-22] MEDS: BUTALBITAL/ACETAMIN/CAFFEINE TAB PO PRN (10:42)
[2017-05-22] MEDS ORDERED: DiphenhydrAMINE 2%/ZINC 0.1% CREAM 28GM TUBE EXT PRN (11:00)
--- NOTE | 2017-05-22 17:58 | Progress Note ---
Subjective Date of Service: May 22, 2017. Subjective this pt has post chemo myalgias and arthralgias, she has had some trigger point injections 05/22 and did have left gr troch injection 05/21. overall she seems to be calling the shots regarding when she feels that she will be well enought to go home Problem List Medical Problems: (1) Anemia Status: Acute (2) Back pain Status: Acute (3) Central stenosis of spinal canal Status: Acute (4) Leg pain, left Status: Acute (5) Thrombocytopenia Status: Acute Review of Systems Constitutional: + weakness, + fatigue, No fever, No chills Respiratory: No cough, No shortness of breath, No dyspnea on exertion Cardiac: No chest pain, No PND, No edema Abdomen: No pain, No vomiting, No diarrhea Musculoskeletal: + joint pain, + muscle pain, + swelling Female : No dysuria, No urinary frequency Psychiatric: + anxiety, No depression symptoms, No anhedonism Objective Vital Signs Date Time Temp Pulse Resp B/P (MAP) Pulse Ox O2 Delivery O2 Flow Rate FiO2 05/22/17 15:58 37.0 78 16 110/66 (81) 98 Room Air 05/22/17 11:15 37.0 90 16 128/73 (91) 94 Room Air 05/22/17 09:56 Room Air 05/22/17 07:20 36.5 75 16 103/62 (76) 95 Room Air 05/22/17 04:59 36.4 76 18 98/61 (73) 94 Room Air 05/21/17 23:36 36.9 77 20 95/56 (69) 92 Room Air 05/21/17 23:06 36.8 78 16 92/58 (69) 05/21/17 19:38 37.0 81 16 105/65 (78) Physical Exam General Appearance: WD/WN, + mild distress Eyes: normal inspection, sclerae normal Respiratory/Chest: chest non-tender, lungs clear, normal breath sounds Cardiovascular: regular rate, rhythm, no murmur Abdomen: normal bowel sounds, non tender, soft Extremities: no pedal edema, no calf tenderness Neurologic/Psychiatric: alert, oriented x 3 Laboratory Results Last 24 Hours Test 05/22/17 05:40 White Blood Count 4.60 K/uL Red Blood Count 5.07 M/uL Hemoglobin 9.2 g/dL Hematocrit 29.7 % Mean Corpuscular Volume 58.6 fL Mean Corpuscular Hemoglobin 18.1 pg Mean Corpuscular Hemoglobin Concent 31.0 g/dl RDW Standard Deviation 39.8 fL RDW Coefficient of Variation 19.0 % Platelet Count 119 K/uL Platelet Estimate DECREASED Sodium Level 137 mmol/L Potassium Level 4.5 mmol/L Chloride Level 101 mmol/L Carbon Dioxide Level 28 mmol/L Anion Gap 8.0 mmol/L Blood Urea Nitrogen 17 mg/dl Creatinine 0.84 mg/dl Est Creatinine Clear Calc Drug Dose 65.2 ml/min Estimated GFR () 86.9 Estimated GFR (Non- 75.0 BUN/Creatinine Ratio 20.1 Random Glucose 109 mg/dl Calcium Level 8.8 mg/dl Magnesium Level 2.5 mg/dl Assessment and Plan 62F presents with acute left hip pain and now acute on on chronic low back pain with history of similar back pain after undergoing chemotherapy for her CLL/SLL that she has recently completed, she also has a history of ankylosing spondylitis that creates additional issues with axial skeletal pain and bulky retroperitoneal lymphadenopathy that likely reacts to chemo and associates some back pain, left hip pain and calcific tendonitis MRI did not show any bony fractures the patient underwent a hip bursa trochanteric injection, Trigger point injections and will also continue to use pain medicine Low back pain/LLE pain, ankylosing spondylitis, MRI shows Progressively worsened retroperitoneal adenopathy, moderate to severe central canal, severe right and mild to moderate left foraminal narrowing, central canal stenosis has slightly worsened from previous but pt is without radicular symptoms the patient feels her back pain is typical after chemotherapy -Lidoderm patch, Toradol 15 mg IV q6h prn pain oxycodone ER to 40 mg PO BID oxycodone IR to 10 mg PO q4h prn pain, Flexeril 10 mg PO TID CLL/SLL--stable, between chemo treatments. Next treatment in 2 weeks Benadryl for itching has improved her symptoms Hypothyroidism--h/o thyroid cancer s/p thyroidectomy reamins Clinically stable on Synthroid 175 mcg PO qd Sjogren's coninues with no complaints with Salagen 5 mg PO TID Atrial tachycardia/SVT-- controlled heart rate with Toprol XL 50 mg PO BID. she may take additional Toprol 25 mg with the 50 mg if needed for palpitations and acute tachycardia DVT prophylaxis-Enoxaparin 40 mg SC q24h -DAVIDE roche and Gala Code Status -Level I, FULL RESUSCITATION STATUS
[2017-05-23] VITALS (7 sets, daily range): BP systolic 100–117; BP diastolic 63–69; PULSE 71–82; TEMP 36.5–36.8; O2SAT 94–96
[2017-05-23] MEDS: KETOROLAC TROMETHAMINE 15 MG/ML VIAL IV PRN ×3 (00:15→20:31)
[2017-05-23] MEDS: OXYCODONE HCL IR 5 MG TAB (IMMEDIATE RELEASE) PO PRN ×3 (00:25→14:54)
[2017-05-23] MEDS: ONDANSETRON INJ 2 MG/ML 2 ML VIAL IV PRN ×2 (04:06→11:00)
[2017-05-23] MEDS: LEVOTHYROXINE 175 MCG TAB PO SCH (05:50)
[2017-05-23] MEDS: OXYCODONE HCL 20 MG TABCR (OXYCONTIN) PO SCH ×2 (08:31→20:23)
[2017-05-23] MEDS: CYCLOBENZAPRINE HCL 10 MG TAB PO SCH ×3 (08:31→20:20)
[2017-05-23] MEDS: FUROSEMIDE 40 MG TAB PO SCH (08:32)
[2017-05-23] MEDS: CETIRIZINE HCL 10 MG TAB PO SCH (08:32)
[2017-05-23] MEDS: MECLIZINE HCL 25 MG TAB PO SCH ×4 (08:32→20:17)
[2017-05-23] MEDS: PILOCARPINE HCL 5 MG TAB PO SCH ×3 (08:32→20:23)
[2017-05-23] MEDS: PANTOprazole SOD 40 MG TAB PO SCH ×2 (08:32→20:17)
[2017-05-23] MEDS: METOPROLOL SUCC 50MG EXT REL TAB PO SCH ×2 (08:32→20:20)
[2017-05-23] MEDS: LIDODERM (LIDOCAINE) PATCH 5% TD SCH (08:34)
[2017-05-23] MEDS: ENOXAPARIN 40 MG/0.4 ML SYR SQ SCH (08:35)
[2017-05-23] MEDS: KCL 10 MEQ PO SCH ×2 (08:35→20:00)
[2017-05-23] MEDS: TOBRAMYCIN/DEXAMETHASONE OPH SUSP 2.5 ML BTL OPB SCH ×2 (08:36→20:16)
[2017-05-23] MEDS: OLOPATADINE HYDROCHLORIDE 5 ML BTL OPB SCH ×2 (08:36→20:16)
[2017-05-23] MEDS: TRIAMCINOLONE ACET NASAL SPRAY 10.8ML BTL NAE SCH ×2 (08:36→20:15)
[2017-05-23] MEDS: OFLOXACIN 0.3% OP SOLN 5 ML BTL OPB SCH ×4 (08:36→20:15)
[2017-05-23] MEDS: PROMETHAZINE HCL 25 MG TAB PO PRN ×2 (14:53→20:17)
[2017-05-23] MEDS ORDERED: NURSING VERBAL MED ORDER ONE (15:45)
[2017-05-23] MEDS: ONDANSETRON 8 MG TAB PO PRN (17:42)
--- NOTE | 2017-05-23 19:44 | Progress Note ---
Subjective Date of Service: May 23, 2017. Subjective Pt evaluation today including: conversation w/ patient, physical exam, chart review, lab review, review of inpatient medication list back pain about the same feeling like injections will probably start to take effect tomorrow no other new complaitns worried about picking up infection in the hospital but also doesn't want to go home yet Problem List Medical Problems: (1) Anemia Status: Acute (2) Back pain Status: Acute (3) Central stenosis of spinal canal Status: Acute (4) Leg pain, left Status: Acute (5) Thrombocytopenia Status: Acute Review of Systems all other ROS otherwise negative except for as above Objective Vital Signs Date Time Temp Pulse Resp B/P (MAP) Pulse Ox O2 Delivery O2 Flow Rate FiO2 05/23/17 19:05 36.7 75 20 107/69 (82) 96 05/23/17 18:09 Room Air 05/23/17 15:02 36.7 76 18 100/63 (75) 96 05/23/17 11:19 Room Air 05/23/17 09:05 36.6 80 16 05/23/17 08:50 Room Air 05/23/17 07:21 36.8 75 20 102/65 (77) 94 05/23/17 03:55 36.7 77 16 113/67 (82) 94 Room Air 05/23/17 00:30 Room Air 05/22/17 23:39 36.8 76 20 108/68 (81) 99 Room Air 05/22/17 20:51 81 116/72 (87) Physical Exam General Appearance: no apparent distress Eyes: EOMI ENT: hearing grossly normal Neck: trachea midline Respiratory/Chest: no respiratory distress, no accessory muscle use Neurologic/Psychiatric: 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 tested, alert, + pertinent finding ( pleasnatly anxious) Skin: normal color, warm/dry Assessment and Plan 62F presents with acute left hip pain and now acute on on chronic low back pain with history of similar back pain after undergoing chemotherapy for her CLL/SLL that she has recently completed, she also has a history of ankylosing spondylitis that creates additional issues with axial skeletal pain and bulky retroperitoneal lymphadenopathy that likely reacts to chemo and associates some back pain, left hip pain and calcific tendonitis as well as myofascial/musclular pain - patient underwent a hip bursa trochanteric injection, Trigger point injections and will also continue to use pain medicine, anticipate improvement, encouraged activity Low back pain/LLE pain, ankylosing spondylitis, MRI shows Progressively worsened retroperitoneal adenopathy, moderate to severe central canal, severe right and mild to moderate left foraminal narrowing, central canal stenosis has slightly worsened from previous but pt is without radicular symptoms the patient feels her back pain is typical after chemotherapy, management as above, also suggested outpt DO f/u for OMT -Lidoderm patch, Toradol 15 mg IV q6h prn pain oxycodone ER 40 mg PO BID oxycodone IR t 10 mg PO q4h prn pain, Flexeril 10 mg PO TID CLL/SLL--stable, between chemo treatments. Next treatment in 2 weeks Benadryl for itching has improved her symptoms Hypothyroidism--h/o thyroid cancer s/p thyroidectomy reamins Clinically stable on Synthroid 175 mcg PO qd Sjogren's coninues with no complaints with Salagen 5 mg PO TID Atrial tachycardia/SVT-- controlled heart rate with Toprol XL 50 mg PO BID. she may take additional Toprol 25 mg with the 50 mg if needed for palpitations and acute tachycardia no current issues DVT prophylaxis-Enoxaparin 40 mg SC q24h -DAVIDE Parsons Code Status -Level I, [facility]
[2017-05-24] VITALS (7 sets, daily range): BP systolic 100–119; BP diastolic 64–74; PULSE 60–83; TEMP 36.6–37; O2SAT 94–98
[2017-05-24] MEDS: BUTALBITAL/ACETAMIN/CAFFEINE TAB PO PRN ×2 (03:16→19:03)
[2017-05-24] MEDS: LEVOTHYROXINE 175 MCG TAB PO SCH (06:14)
[2017-05-24] MEDS: OXYCODONE HCL 20 MG TABCR (OXYCONTIN) PO SCH ×2 (07:51→21:00)
[2017-05-24] MEDS: OXYCODONE HCL IR 5 MG TAB (IMMEDIATE RELEASE) PO PRN ×2 (07:52→23:24)
[2017-05-24] MEDS: MECLIZINE HCL 25 MG TAB PO SCH ×4 (07:53→21:01)
[2017-05-24] MEDS: METOPROLOL SUCC 50MG EXT REL TAB PO SCH ×2 (07:53→21:04)
[2017-05-24] MEDS: CETIRIZINE HCL 10 MG TAB PO SCH (07:53)
[2017-05-24] MEDS: CYCLOBENZAPRINE HCL 10 MG TAB PO SCH ×3 (07:53→21:02)
[2017-05-24] MEDS: FUROSEMIDE 40 MG TAB PO SCH (07:54)
[2017-05-24] MEDS: PANTOprazole SOD 40 MG TAB PO SCH ×2 (07:54→21:01)
[2017-05-24] MEDS: PILOCARPINE HCL 5 MG TAB PO SCH ×3 (07:54→21:05)
[2017-05-24] MEDS: LIDODERM (LIDOCAINE) PATCH 5% TD SCH (07:55)
[2017-05-24] MEDS: ENOXAPARIN 40 MG/0.4 ML SYR SQ SCH (07:55)
[2017-05-24] MEDS: OLOPATADINE HYDROCHLORIDE 5 ML BTL OPB SCH ×2 (07:56→20:59)
[2017-05-24] MEDS: OFLOXACIN 0.3% OP SOLN 5 ML BTL OPB SCH ×4 (07:56→20:59)
[2017-05-24] MEDS: TOBRAMYCIN/DEXAMETHASONE OPH SUSP 2.5 ML BTL OPB SCH ×2 (07:56→20:59)
[2017-05-24] MEDS: KCL 10 MEQ PO SCH (07:57)
[2017-05-24] MEDS: TRIAMCINOLONE ACET NASAL SPRAY 10.8ML BTL NAE SCH ×2 (07:57→20:58)
[2017-05-24] MEDS: KETOROLAC TROMETHAMINE 15 MG/ML VIAL IV PRN (09:09)
[2017-05-24] MEDS ORDERED: DICLOFENAC SOD 1% GEL 100 GM TUBE EXT ONE (12:06)
[2017-05-24] MEDS: HYDROmorphone INJ 0.5 MG/0.5 ML SYR IV PRN (13:03)
[2017-05-24] MEDS: ONDANSETRON 8 MG TAB PO PRN (14:10)
[2017-05-24] MEDS: DICLOFENAC SOD 1% GEL 100 GM TUBE EXT SCH ×2 (17:38→20:57)
--- NOTE | 2017-05-24 18:32 | Progress Note ---
Subjective Date of Service: May 24, 2017. Subjective Pt evaluation today including: conversation w/ patient, conversation w/ family , physical exam, chart review feeling about the same had back spasms all night as well but hasn't been getting up out of bed much notes that she deosn't get up much at home normally very stressed about pain control and at one point becomes frustrated, tearful and says "well i guess i'll just go home and suffer there" pain that's new is low back and radiating up also still has pain radiating around groin does have some urinary hesitancy no dysuria Problem List Medical Problems: (1) Anemia Status: Acute (2) Back pain Status: Acute (3) Central stenosis of spinal canal Status: Acute (4) Leg pain, left Status: Acute (5) Thrombocytopenia Status: Acute Review of Systems all other ROS otherwise negative except for as above Objective Vital Signs Date Time Temp Pulse Resp B/P (MAP) Pulse Ox O2 Delivery O2 Flow Rate FiO2 05/24/17 15:45 36.7 83 20 117/73 (88) 94 05/24/17 15:41 Room Air 05/24/17 11:16 36.6 73 20 100/64 (76) 95 05/24/17 07:50 Room Air 05/24/17 07:32 36.6 68 18 102/65 (77) 94 05/24/17 03:00 36.7 60 18 106/66 (79) 95 Room Air 05/24/17 00:00 Room Air 05/23/17 23:40 36.5 71 18 106/65 (79) 95 Room Air 05/23/17 20:18 82 117/66 (83) 05/23/17 20:10 Room Air 05/23/17 19:05 36.7 75 20 107/69 (82) 96 05/23/17 18:09 Room Air Physical Exam General Appearance: + pertinent finding (anxious at times upset, also appearing uncomfortable) Eyes: EOMI ENT: hearing grossly normal Neck: trachea midline Respiratory/Chest: no respiratory distress, no accessory muscle use Extremities: normal range of motion Neurologic/Psychiatric: bilingual trainer II-XII nml as tested, alert Skin: normal color, warm/dry Comments: ost/msk - b/l L>R Lspine paraspinals high tone/tender/decreased ROM - myofascial release/direct myofascial - improved some, pt tolerated well Laboratory Results Last 24 Hours Test 05/24/17 06:57 Magnesium Level 2.5 mg/dl Assessment and Plan 62F presents with acute left hip pain and now acute on on chronic low back pain with history of similar back pain after undergoing chemotherapy for her CLL/SLL that she has recently completed, she also has a history of ankylosing spondylitis that creates additional issues with axial skeletal pain and bulky retroperitoneal lymphadenopathy that likely reacts to chemo and associates some back pain, left hip pain and calcific tendonitis as well as myofascial/muscular pain - patient underwent a hip bursa trochanteric injection, Trigger point injections and will also continue to use pain medicine, anticipate improvement, encouraged activity heavily and expressed concerns over spasms worsening due to lack of movement as well as deconditioning from being in bed possibly making it such that she would need rehab, add voltaren gel Low back pain/LLE pain, ankylosing spondylitis, MRI shows Progressively worsened retroperitoneal adenopathy, moderate to severe central canal, severe right and mild to moderate left foraminal narrowing, central canal stenosis has slightly worsened from previous but pt is without radicular symptoms the patient feels her back pain is typical after chemotherapy, management as above, also suggested outpt DO f/u for OMT ongoing after discharge -Lidoderm patch, Toradol 15 mg IV q6h prn pain oxycodone ER 40 mg PO BID oxycodone IR t 10 mg PO q4h prn pain, Flexeril 10 mg PO TID somatic dysfunction Lspine region -OMT as above CLL/SLL--stable, between chemo treatments. Next treatment in 2 weeks Benadryl for itching has improved her symptoms situational anxiety/frustration -tried to give reassurance, guidance and explanations as best as possible - pt seems to feel that people dont' believe her that she's hurting - tried to explain many ways that this is not the case (and also the rather prolonged inpatient stay and extensive measures for pain control should corroborate this) Hypothyroidism--h/o thyroid cancer s/p thyroidectomy reamins Clinically stable on Synthroid 175 mcg PO qd Sjogren's coninues with no acute complaints with Salagen 5 mg PO TID Atrial tachycardia/SVT-- controlled heart rate with Toprol XL 50 mg PO BID. she may take additional Toprol 25 mg with the 50 mg if needed for palpitations and acute tachycardia no current issues DVT prophylaxis-Enoxaparin 40 mg SC q24h -DAVIDE Parsons Code Status -Level I, FULL RESUSCITATION STATUS home once pain better controlled vs rehab if deconditioning worsens
[2017-05-24] MEDS: PROMETHAZINE HCL 25 MG TAB PO PRN (19:01)
[2017-05-24] MEDS: POTASSIUM CHLORIDE 10 MEQ TABCR PO SCH (20:59)
[2017-05-25] MEDS: LEVOTHYROXINE 175 MCG TAB PO SCH (06:07)
[2017-05-25 08:17] VITALS: BP 107/64; PULSE 69; TEMP 36.5; O2SAT 95
[2017-05-25] MEDS: PILOCARPINE HCL 5 MG TAB PO SCH (09:57)
[2017-05-25] MEDS: FUROSEMIDE 40 MG TAB PO SCH (09:57)
[2017-05-25] MEDS: METOPROLOL SUCC 50MG EXT REL TAB PO SCH (09:58)
[2017-05-25] MEDS: TRIAMCINOLONE ACET NASAL SPRAY 10.8ML BTL NAE SCH (09:58)
[2017-05-25] MEDS: OFLOXACIN 0.3% OP SOLN 5 ML BTL OPB SCH (09:58)
[2017-05-25] MEDS: CYCLOBENZAPRINE HCL 10 MG TAB PO SCH (09:58)
[2017-05-25] MEDS: MECLIZINE HCL 25 MG TAB PO SCH (09:58)
[2017-05-25] MEDS: CETIRIZINE HCL 10 MG TAB PO SCH (09:59)
[2017-05-25] MEDS: OXYCODONE HCL 20 MG TABCR (OXYCONTIN) PO SCH (09:59)
[2017-05-25] MEDS: LIDODERM (LIDOCAINE) PATCH 5% TD SCH (09:59)
[2017-05-25] MEDS: PANTOprazole SOD 40 MG TAB PO SCH (09:59)
[2017-05-25] MEDS: TOBRAMYCIN/DEXAMETHASONE OPH SUSP 2.5 ML BTL OPB SCH (09:59)
[2017-05-25] MEDS: DICLOFENAC SOD 1% GEL 100 GM TUBE EXT SCH (10:00)
[2017-05-25] MEDS: POTASSIUM CHLORIDE 10 MEQ TABCR PO SCH (10:00)
[2017-05-25] MEDS: ENOXAPARIN 40 MG/0.4 ML SYR SQ SCH (10:01)
[2017-05-25] MEDS: OLOPATADINE HYDROCHLORIDE 5 ML BTL OPB SCH (10:01)
[2017-05-25 11:38] VITALS: BP 107/64; PULSE 69; TEMP 36.5; O2SAT 95
[2017-05-25] MEDS ORDERED: OXYSR/20 PO (11:56)
[2017-05-25] MEDS ORDERED: RXC5 PO (11:56)
[2017-05-25] MEDS ORDERED: VLTG EXT (11:56)
--- NOTE | 2017-05-25 12:05 | Discharge Instructions ---
Discharge Instructions Date of Service May 25, 2017. Admission Reason for Admission: Back Pain, Leg Pain Discharge Discharge Diagnosis / Problem: mutlifactorial back pain Discharge Goals Goal(s): Decrease discomfort, Therapeutic intervention Activity Recommendations Activity Limitations: resume your previous activity (as we discussed, within your limitations, moving more will actually help with the muscular and myofascial part of the pain) . Instructions / Follow-Up Instructions / Follow-Up multifactorial back pain -the back pain appears to be an amalgamation of your ankylosing spondylitis, pain related to the cancer and chemotherapy, and muscular/myofascial pain -we'll want to go after this as a multimodal approach and definitely more of a problem to be maintained than a "situation to be fixed" to help you do as best as possible medications -for now we've increased the oxycontin to 40mg twice a day as the baseline pain medication, the breakthrough pain medication is now 10mg oxycodone that you can take up to every four hours as needed. obviously the main problems with the narcotics are constipation, grogginess/fatigue/lethargy, and increasing tolerance making dosing gradually less effective. over time, as the other approaches for pain control start to take effect, the hope would be to be able to reduce these down to lower doses again -voltaren gel - use this four times a day every day (as best as you realistically can) on the area in your low back that you're hurting injections -trigger point injections can do a lot of good in settling down the muscle/ myofascial part of the pain - we've asked them to refer to [facility] Diego/[facility] (who saw you here in the hospital) for ongoing follow up and, when necessary, further injections, in this regard manipulative medicine -Dr Ramey with [facility] (family medicine, not urology!) practices manipulative medicine as a big portion of his care --> so just as Dr Kramer used to work on you pretty routinely, it would make sense to get you set up with a DO to continue that type of treatment to help in the muscular and myofascial part of the pain - we've asked to get you referred to him as well dehydration - if it becomes apparent that you get dehydrated after every chemotherapy, it should be fairly easy to get outpatient IV fluids ordered through the Medical Treatment Unit here at the hospital - talk with your PCP and see how you're doing as chemo continues Current Hospital Diet Patient's current hospital diet: AHA Diet (Heart Healthy) Discharge Diet Recommended Diet: AHA Diet (Heart Healthy) Pending Studies Studies pending at discharge: no Medical Emergencies . Who to Call and When: Medical Emergencies: If at any time you feel your situation is an emergency, please call 911 immediately. . Non-Emergent Contact Non-Emergency issues call your: Primary Care Provider, Oncologist, Specialist ( pain management) . . "Provider Documentation" section prepared by Reuben Moreno. . VTE Core Measure Inpt VTE Proph given/why not?: Enoxaparin (Lovenox)GURINDER, T.E.Jey. Nadia, SCD's
--- NOTE | 2017-05-25 18:00 | Discharge Summary ---
Discharge Summary Date of Service May 25, 2017. Discharge Summary Admission Date: May 19, 2017 at 18:58 Discharge Date: May 25, 2017 Discharge Disposition: Home Principal Diagnosis: multifactorial back apin Immunizations: Have You Had Influenza Vaccine: No History of Tetanus Vaccine?: 2003 Tetanus Immunization Date: Nov 16, 2003 History of Pneumococcal: No History of Hepatitis B Vaccine: No Procedures: trigger point injections done by pain management trochanteric bursa injection done by orthopedics LUMBAR SPINE W/O CONTRAST CLINICAL HISTORY: 62 years-old Female with L4/L5 stenosis, eval, LBP, pain LLE. Acute low back pain with radiation into the left lower extremity. History of lymphoma. COMPARISON: CT lumbar spine 05/19/2017, lumbar spine MR 01/05/2016 TECHNIQUE: Multiplanar, multi sequence MRI of the lumbar spine was performed without intravenous contrast. FINDINGS: No aortic aneurysm. Retroperitoneal adenopathy redemonstrated with conglomerate (aortic lymph nodes on image 11 series 7 measuring up to 1.9 x 2.3 cm, previously 1.4 x 1.4 cm on study dated 01/05/2016. Left iliac chain lymph node on image 19 series 7 now measures 11 mm in short axis, previously 9 mm. Aortocaval 10 mm lymph node on image 10 of series 7 previously measured 7 mm. Conus medullaris terminates at L1. Signal within the imaged cord appears normal. There is no acute fracture, subluxation or focal bone marrow edema identified. Multilevel Schmorl's nodes identified. 15 mm hemangioma is seen at L2. Bone marrow appears mildly heterogeneous. No definite discrete bone lesions are identified. 6 mm anterolisthesis of L4 on L5 redemonstrated with degenerative changes as below. T12-L1: Mild posterior spondylitic spurring, mild intervertebral disc space narrowing and facet arthrosis. No significant central canal or foraminal narrowing. L1-L2: Moderate intervertebral disc space narrowing with endplate spurring and small circumferential annular disc bulge. Mild facet arthrosis. Mild flattening of the ventral thecal sac without significant central canal or foraminal narrowing. L2-L3: Moderate intervertebral disc space narrowing with moderate posterior disc bulge, posterior spondylitic spurring, moderate facet arthrosis with ligamentum flavum thickening and small bilateral facet effusions. There is flattening of the ventral thecal sac with mild right lateral recess narrowing. No significant central canal stenosis. There is mild inferior bilateral foraminal narrowing. L3-L4: Moderate intervertebral disc space narrowing with spondylitic spurring and small to moderate circumferential annular disc bulge. Moderate facet arthrosis with ligamentum flavum thickening. Flattening of the ventral thecal sac without significant central canal narrowing. Mild left and mild to moderate right foraminal narrowing. L4-L5: Anterolisthesis as above with moderate to severe intervertebral disc space narrowing, circumferential annular disc bulge with spondylitic spurring and disc space uncovering. Additionally, there is severe facet arthrosis with ligamentum flavum thickening and moderate bilateral facet effusions. Central canal is narrowed to 7 mm in AP dimension, previously 8 mm. Additionally, there is severe right and mild to moderate left foraminal narrowing. Degree of central canal stenosis has worsened from prior. The degree of right foraminal narrowing has also slightly worsened. L5-S1: Mild intervertebral disc space narrowing with small posterior annular disc bulge, mild to moderate facet arthrosis with ligamentum flavum thickening. Flattening of the ventral thecal sac without significant central canal stenosis. No significant foraminal narrowing. IMPRESSION: 1. Progressively worsened retroperitoneal adenopathy as above from comparison study 01/05/2016 likely correlating with patient's known history of lymphoma/leukemia. 2. Grade 1 anterolisthesis of L4 on L5 with discogenic degenerative changes and facet arthrosis result in moderate to severe central canal, severe right and mild to moderate left foraminal narrowing. The degree of central canal stenosis has slightly worsened from comparison. 3. Additional discogenic degenerative changes and facet arthrosis as above. The above report was generated using voice recognition software. It may contain grammatical, syntax or spelling errors. Electronically signed by: Jarad Sosa M.D. 05/19/2017 5:00 PM Dictated Date/Time: 05/19/2017 4:46 PM L LOWER EXT NONJOINT WITHOUT HISTORY: 62 years-old Female non traumatic significant hip and femur pain acute left hip and femur pain COMPARISON: Pelvis radiographs 09/13/2016, CT abdomen and pelvis 04/25/2013 TECHNIQUE: Multiplanar multisequence MRI of the left lower extremity was obtained without contrast FINDINGS: There is a 2.3 x 1.8 x 1.8 cm lobulated T1 and T2 hypointense sclerotic body anteromedial to the left greater trochanter and anterior to the proximal femoral neck nicely seen on image 6 series 8 and image 12 series 5. This lesion is interposed between the anterior cortex of the left femoral neck and adjacent thickened iliofemoral ligament which is also nicely seen on image 6 series 8. There is a considerable amount of adjacent soft tissue edema which tracks into the adjacent gluteus medius and vastus lateralis musculature with edema tracking along the myofascial planes between the rectus femoris and vastus lateralis. Extensive bone marrow edema is also noted within the left femoral max and left greater trochanter nicely seen on the coronal STIR images. Mild degenerative changes about the bilateral hips. No definite labral tear identified, however this study is not tailored to assess the intrinsic structures about the left hip.Mild enthesitis noted at the gluteus medius and minimus insertion sites about the greater trochanter. No acute fracture or subluxation identified. Small left knee joint effusion. No adenopathy or acute intrapelvic abnormality identified. Subcentimeter sclerotic foci of the left femoral head and neck suggests bone islands, unchanged. No definite suspicious mass lesions identified. IMPRESSION: 1. Chronic calcific body anteromedial to the left greater trochanter is again seen, interposed between the thickened iliofemoral ligament and anterior cortex of the left femoral neck and greater trochanter causing considerable amount of associated bone marrow edema, and surrounding soft tissue edema which extends into the adjacent gluteus medius and vastus lateralis musculature. Findings are likely secondary to impingement-type sequela of chronic friction/motion about the left hip joint. 2. No definite fracture or suspicious bony lesions identified. 3. Mild enthesitis of the gluteus minimus and medius insertion sites about the greater trochanter. 4. Mild degenerative changes of the bilateral hips. The above report was generated using voice recognition software. It may contain grammatical, syntax or spelling errors. Electronically signed by: Jarad Sosa M.D. 05/20/2017 6:24 PM Dictated Date/Time: 05/20/2017 5:36 PM [~ rep ct add3]] LEFT LOWER EXTREMITY VENOUS DOPPLER HISTORY: Left leg pain, higher in groin area COMPARISON STUDY: None. FINDINGS: There is normal compressibility, flow, and augmentation within the left lower extremity deep venous system. IMPRESSION: No DVT within the left lower extremity. Electronically signed by: Beau Herndon M.D. 05/19/2017 12:23 PM Dictated Date/Time: 05/19/2017 12:[address] WITHOUT CONTRAST CLINICAL HISTORY: Acute back pain radiating into left lower extremity. History of chronic lymphocytic leukemia. COMPARISON STUDY: Lumbar spine MRI February 27, 2010 and January 05, 2016 and lumbar spine radiographs September 13, 2016. FINDINGS: For purposes of numbering on this exam, the L5-S1 disc space is assigned to axial image 236 of 271. 6 mm anterolisthesis of L4 and L5 has slightly increased since MRI of January 05, 2016. No acute lumbar spine fracture is present. Note is made of multiple moderately enlarged retroperitoneal lymph nodes. An index left para-aortic lymph node shown on axial image 115 of 271 measures 1.6 x 2 cm. This has mildly increased in size since MRI of January 05, 2016. A left common iliac node measures 1.2 cm in short axis diameter. This has also increased. Heterogeneity of the visualized skeletal structures is unchanged. There are no overtly suspicious skeletal lesions. There are multiple Schmorl's nodes. Central canal and neural foramen are suboptimally assessed due to CT technique. Moderate to severe central canal stenosis at L4-L5 is noted. Disc protrusions at L2-L3 and L3-L4 are noted. IMPRESSION: 1. No acute lumbar spine fracture or subluxation. 2. Increase in moderate retroperitoneal lymphadenopathy since MRI January 05, 2016. This favors leukemia/lymphoma. 3. Moderate to severe central canal stenosis at L4-L5. 4. Grade I anterolisthesis of L4 and L5 with marked disc space narrowing at this level. Electronically signed by: Sylvain Lacey M.D. 05/19/2017 11:41 AM Dictated Date/Time: 05/19/2017 11:29 AM L HIP UNILATERAL 2 VIEWS CLINICAL HISTORY: fracture trauma. Pain. COMPARISON: None. DISCUSSION: The bones and joint spaces appear intact. There is no evidence of fracture, dislocation or bony disease. Soft tissue calcifications adjacent to the greater trochanter consistent with calcific trochanteric bursitis IMPRESSION: 1. No acute bony abnormality. 2. Study specifically negative for fracture. 3. Calcific trochanteric bursitis. The above report was generated using voice recognition software. It may contain grammatical, syntax or spelling errors. Electronically signed by: Mauricio Moy M.D. 05/20/2017 9:57 AM Dictated Date/Time: 05/20/2017 9:53 AM Last Resulted CBC 05/22/17 05:40 Last Resulted BMP 05/22/17 05:40 Medication Reconciliation New Medications: Diclofenac Sod (Voltaren) 100 Appln/100 Gm Gel 1 APPLN EXT QID, #100 GM Oxycodone HCl (Oxycodone HCl) 5 Mg Tab 10 MG PO Q4H PRN for Pain, #60 TAB Oxycodone HCl (Oxycontin) 20 Mg Tabcr 40 MG PO Q12, #60 TAB Continued Medications: Acetamin/Butalbital/Caffeine (Fioricet) 1 Ea Tab 1-2 TABLETS PO Q4H PRN for Headache, TAB Acyclovir (Zovirax) 200 Mg Cap 400 MG PO UD PRN, 0 Refills TAKE ONE TABLET 3 TIMES A DAY FOR 7 DAYS FOR COLD SORES. Alum & Mag Hydrox-Simethicone (Mylanta) 1 Karen Karen 1 DOSE PO UD PRN for Constipation Cetirizine (Zyrtec) 10 Mg Tab 10 MG PO QAM Clotrimazole (Mycelex) 10 Mg Tro 10 MG PO 5XD PRN for THRUSH, LENIN Cyclobenzaprine Hcl (Flexeril) 10 Mg Tab 10 MG PO TID, TAB Diphenhydramine Hcl (Benadryl Allergy) 25 Mg Tab 1 TAB PO UD PRN for ALLERGIES Erythromycin Opth (Erythromycin Opth) 12 Appln/3.5 Gm Oint 1 APPLN OP UD PRN for UNDECIDED Famotidine (Pepcid) 20 Mg Tab 1 TAB PO UD PRN for HEARTBURN Fluconazole (Diflucan) 100 Mg Tab 10 MG PO DAILY PRN for THRUSH, TAB Fluocinonide (Fluocinonide) 180 Appln/60 Gm Cr 1 APPLN TOP DAILY PRN for RASH Furosemide (Lasix) 40 Mg Tab 60 MG PO QAM 1 1/2 OF A 40 MG TABLET EVERY MORNING Ketoconazole (Ketoconazole) 45 Appln/15 Gm Cr 1 APPLN TOP DAILY PRN for RASH Ketorolac (Toradol) 10 Mg Tab 10 MG PO UD 10 MG PO TID FOR 1 WEEK PER MONTH, THEN BACK TO RELAFEN FOR 3 WEEKS, THEN BACK TO TORADOL FOR 1 WEEK, CONTINUE SCHEDULE, SEE [facility]. Ketorolac Tromethamine (Ophth) (Acular Oph) 0.5 % Hortencia 1 DROP OPB BID, BTL Levothyroxine Sodium (Synthroid) 175 Mcg Tab 175 MCG PO QAM BRAND NAME ONLY Loperamide Hcl (Imodium) 2 Mg Cap 1 CAP PO UD PRN for GI UPSET Lorazepam (Ativan) 1 Mg Tab 1 MG PO UD PRN for TACHYCARDIA TAKE 1 MG TAB LORAZEPAM. IF HEART RATE DOES NOT SLOW DOWN AFTER 1 HOUR, TAKE ADDITIONAL 1 MG TAB OF LORAZEPAM AND AN ADDITIONAL 50 MG TAB OF METOPROLOL TARTRATE. IF HEART RATE DOES NOT SLOW DOWN AFTER 2 OR 3 HOURS, GO TO ET FOR IMMEDIATE MEDICAL ATTENTION. NOTE CAN TAKE TOTAL OF 150 MG METOPROLOL TARTRATE DAILY NEEDED. Maalox/Diphen/Visc. Buzz/Glyc (Magic Swizzle) 240 Ml Btl 1 DOSE PO UD PRN for SORES Meclizine Hcl (Meclizine Hcl) 25 Mg Tab 25 MG PO QID Metoprolol Succ (Toprol Xl) (Toprol-Xl) 25 Mg Tabcr 25 MG PO AMPM PRN for TACHYCARDIA TAKE IN ADDITION TO TOPROL XL 50 EVERY MORNING AND EVENING Metoprolol Succinate (Toprol Xl) 50 Mg Tabcr 50 MG PO AMPM MANAGER SPRING AND LATE AFTERNOON/EARLY EVENING Metoprolol Tartrate (Lopressor) (Lopressor) 50 Mg Tab 50 MG PO UD PRN for TACHYCARDIA TAKE 1 TAB IMMEDIATELY FOR SUDDEN ONSET ATRIAL OR SUPRAVENTRICULAR TACHYCARDIA AND/OR FOR SUDDEN ONSET HEART "SKIPPING" BEATS, AT THE SAME TIME, ALSO TAKE 1 MG TAB LORAZEPAM. IF HEART RATE DOES NOT SLOW DOWN AFTER 1 HOUR, TAKE ADDITIONAL 1 MG TAB OF LORAZEPAM AND AN ADDITIONAL 50 MG TAB OF METOPROLOL TARTRATE. IF HEART RATE DOES NOT SLOW DOWN AFTER 2 OR 3 HOURS, GO TO [facility] FOR IMMEDIATE MEDICAL ATTENTION. NOTE CAN TAKE TOTAL OF 150 MG METOPROLOL TARTRATE DAILY NEEDED. Moxifloxacin Hcl (Ophth) (Vigamox 0.5% Oph) 0.5 % Ravi 1 DROP OPB QID for 7 Days, BTL Nabumetone (Nabumetone) 750 Mg Tab 750 MG PO UD 750 MG PO BID X 3 WEEKS PER MONTH, THEN BACK TO TORADOL FOR 1 WEEK AND CONTINUE SCHEDULE, SEE TORADOL. Ofloxacin (Oph) (Ocuflox Oph Soln) 0.3 % Ravi 1 DROP OPB QID Olopatadine Hcl (Patanol 0.1% Oph) 0.1 % Hortencia 1 DROP OPB BID, BTL Ondansetron Hcl (Zofran) 8 Mg Tab 8 MG PO Q8 PRN for Nausea, 0 Refills Oxymetazoline Hcl (Afrin) 0.05 % Spr 1 SPRAY AUGUST UD PRN for Nasal Congestion Pantoprazole (Protonix) 40 Mg Tab 40 MG PO AMPM TAKE THIS MEDICATION BEFORE BREAKFAST AND EVENING MEAL. Pilocarpine (Salagen) 5 Mg Tab 5 MG PO TID Polyethylene Glycol 3350 (Miralax) 1 Pow Pow 17 GM PO UD PRN for Constipation, #255 GM Potassium Chloride (Micro-K Ext Rel) 10 Meq Capcr 20 MEQ PO AMPM TWO 10 MEQ CAPS TWICE DAILY. CAPSULES ONLY. TOTAL OF 40 MEQ DAILY. Prednisolone Acetate (Ophth) (Pred Forte 1% Oph) 1 % Karen 1 DROP OPB BID USE WHEN NOT USING TOBRADEX. Promethazine Hcl (Phenergan) 25 Mg Tab 25 MG PO Q4H PRN for Nausea, TAB Sumatriptan Succinate (Imitrex) 100 Mg Tab 100 MG PO UD PRN for Migraine, TAB Tobramycin/Dexamethasone 0.3% Oph (Tobradex 0.3% Oph) Susp 1 DROP OPB BID Triamcinolone Acetonide (Nasal (Nasacort Allergy 24Hr) 55 Mcg/Act Spr 1 SPRAY AUGUST BID Zolpidem Tartrate (Ambien) 10 Mg Tab 10 MG PO HS PRN for Sleep, TAB TAKE THIS MEDICATION 30 TO 60 MINUTES BEFORE BEDTIME. [Istalol] () 1 DROP OPB BID Discontinued Medications: Fexofenadine HCl (Mucinex Allergy) Unknown Strength Tab 1 TAB PO UD PRN for CONGESTION Oxycodone Hcl (Oxycodone Hcl) 20 Mg Tab 20 MG PO Q4H PRN for Pain Oxycodone Hcl (Oxycontin) 20 Mg Tab 20 MG PO Q12, TAB Oxycodone Hcl (Oxycontin) 20 Mg Tab 20 MG PO UD PRN for Pain DAILY ORDER AND PRN ORDER, PER MED LIST.. 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 that she has recently completed, she also has a history of ankylosing spondylitis that creates additional issues with axial skeletal pain and bulky retroperitoneal lymphadenopathy that likely reacts to chemo and associates some back pain, left hip pain and calcific tendonitis as well as myofascial/muscular pain - patient underwent a hip bursa trochanteric injection, Trigger point injections and will also continue to use pain medicine, added voltaren gel -- finally showing enough improvement in pain and mobility to be able to go home Low back pain/LLE pain, ankylosing spondylitis, MRI shows Progressively worsened retroperitoneal adenopathy, moderate to severe central canal, severe right and mild to moderate left foraminal narrowing, central canal stenosis has slightly worsened from previous but pt is without radicular symptoms the patient feels her back pain is typical after chemotherapy, management as above, also suggested outpt DO f/u for OMT ongoing after discharge somatic dysfunction Lspine region -OMT done with imrpovement during her stay CLL/SLL--stable, between chemo treatments. Next treatment in 2 weeks Benadryl for itching has improved her symptoms notes that she gets dehydrated after chemo - possibly to consider MTU outpatient IV fluids by oncology or PCP to help mitigate this Hypothyroidism--h/o thyroid cancer s/p thyroidectomy reamins Clinically stable on Synthroid 175 mcg PO qd Sjogren's coninues with no acute complaints with Salagen 5 mg PO TID Atrial tachycardia/SVT-- controlled heart rate with Toprol XL 50 mg PO BID. she may take additional Toprol 25 mg with the 50 mg if needed for palpitations and acute tachycardia no current issues DVT prophylaxis-Enoxaparin 40 mg SC q24h utilized during her stay Code Status -Level I, FULL RESUSCITATION STATUS f/u PCP and oncology f/u DO for OMT consider outpatient IV fluids after chemo to help reduce dehydration surrouding her treatments Total Time Spent: Greater than 30 minutes This includes examination of the patient, discharge planning, medication reconciliation, and communication with other providers. Discharge Instructions Please refer to the electronic Patient Visit Report (Discharge Instructions) for additional information. Additional Copies To Mansi Mccabe M.D.
== END 2017-05-25 13:36 | disposition home or self-care (01) | DRG 546 ==
LOC: C.EDB 09:09 → C.4E 18:58 → UNDOADMIN 18:58 → ENRESERV 22:16
PROVIDERS: ADMIT Internal Medicine; ATTEND Family Medicine
DX: M45.7 Ankylosing spondylitis of lumbosacral region (principal); C91.90 Lymphoid leukemia, unspecified not having achieved remission; C91.10 Chronic lymphocytic leukemia of B-cell type not having achieved remission; I47.1 Supraventricular tachycardia; M35.00 Sjogren syndrome, unspecified; Z83.3 Family history of diabetes mellitus; Z82.49 Family history of ischemic heart disease and other diseases of the circulatory system; Z88.1 Allergy status to other antibiotic agents; Z88.2 Allergy status to sulfonamides; Z85.850 Personal history of malignant neoplasm of thyroid; E03.9 Hypothyroidism, unspecified

== ENCOUNTER → 2017-08-19 | Outpatient (CLI) | payer BC ==
[~2017-08-19] MED LIST changes: -AFRIN NAE; +ALUM-30 PO; +CLOT10TR2 PO; -CYCL0.052 OPB; -DEXT1TAB50 PO; +DIPH1TAB87 PO; -DIPH25TA24 PO; +ERYOPO OP; +FLUC100T PO; +ISTALOL OPB; +KETO0.5S33 OPB; +LDXCR60 TOP; +LEVO175T PO; -LEVO1TAB PO; +METO25TA3 PO; +MGCS/ PO; +NZRCR TOP; +ONDA-170 PO; -ONDA8TAB6 PO; -OXYC-409 PO; -OXYC20TA32 PO; +OXYM0.056 NAE; +OXYSR/20 PO; +POLY335019 PO; -PROM25TA PO; +PROM25TA9 PO; -PSEU30TA20 PO; -RLF500 PO; +RLF750 PO; +RXC5 PO; -TBRDOPO TOP; -TIMO1SOL OPB; +TRIA1SPR4 NAE; -TRIA3AER NAE; -VGMOPS OP; +VGMOPS OPB; +VLTG EXT
--- NOTE | 2017-08-19 11:33 | DIAGNOSTIC IMAGING REPORT ---
L RIBS UNILATERAL WITH PA CHEST CLINICAL HISTORY: R07.81 Rib pain on left side COMPARISON STUDY: No previous studies for comparison. FINDINGS: The erect chest reveals no pneumothorax. There is no focal pulmonary consolidation. No left-sided rib fractures are visualized. No destructive lesions are visualized on conventional radiographic imaging. IMPRESSION: No evidence of pneumothorax. No left-sided rib fractures are visualized. Electronically signed by: Mohinder Johnston M.D. 08/19/2017 11:32 AM Dictated Date/Time: 08/19/2017 11:31 AM
== END | disposition home or self-care (01) ==
LOC: C.RADBC 10:06
PROVIDERS: ATTEND Neuromusculoskeletal Medicine & OMM
DX: R07.81 Pleurodynia (principal)

== ENCOUNTER → 2017-11-20 | Day surgery (SDC) | payer BC ==
[~2017-11-20] VITALS: Ht 157.5 cm; Wt 74.1 kg
[~2017-11-20] MED LIST changes: -ACYC-57 PO; +ACYC400T PO; +AFRINWC; +AGMXR/1000 PO; +BUTA1CAP17; +CLOT10TR MT; -CLOT10TR2 PO; +DEXT30TA7 PO; -DIPH1TAB87 PO; +DIPH25CA65 PO; -ERYOPO OP; +ERYOPO OPB; -FLUC100T PO; -FRCT/ PO; +KETO2SHA TOP; -LDXCR60 TOP; +LIDOCAINE HCL 2% 2 ML VIAL (20MG/ML) ONE; +MAGIC1 PO; +MCRK/10 PO; +MECL-91 PO; -MECL1TAB42 PO; -METO-217 PO; +METO50TA8 PO; +METR-163 PO; -MGCS/ PO; -NZRCR TOP; +OXYC20TA32 PO; +OXYC20TA50 PO; -OXYM0.056 NAE; -OXYSR/20 PO; +PHEN-876 PO; -POTA10CA28 PO; +PROPOFOL IV EMULSION 10 MG/ML 20 ML VIAL ONE; +PSEU30TA64 PO; +RELAFEN PO; -RLF750 PO; -RXC5 PO; +SODIUM CHLORIDE 0.9% 500ML 500 ML IV ONE; +SUMA100T15 PO; -SUMA100T16 PO; +TBRDOPO OPB; +VANCOMYCIN OPB; -VLTG EXT
[2017-11-20 14:08] VITALS: Ht 157.5 cm; Wt 74.1 kg
--- NOTE | 2017-11-20 14:29 | Endo History and Physical ---
History & Physical Date of Service: Nov 20, 2017. Chief Complaint: VOMITING/ABD PAIN/DIARRHEA Referring Physician: DR ELLIS History of Present Illness 62 yo CF who presents for EGD and colonoscopy secondary to abdominal pain, vomiting and diarrhea. Past Medical History Pulmonary Emboli, High Cholesterol, Heart Disease, Thyroid Disease Past Surgical History Hx Cardiac Surgery: No Hx Internal Defibrillator: No Hx Pacemaker: No Hx Abdominal Surgery: Yes (ERCP/COMMON BILE DUCT/SPHINCTER SURGERY, JUSTIN, [facility] BSO) Hx of Implantable Prosthesis: No Hx Post-Op Nausea and Vomiting: No Hx Cancer Surgery: No Hx Thoracic Surgery: No Hx Orthopedic: Yes (LT KNEE SURGERIES X9) Hx Urinary Tract Surgery: No Family History Colon CA Social History Smoking Status: Never Smoker Hx Substance Use: Yes (SEE MED LIST) Hx Alcohol Use: No Allergies Coded Allergies: Adhesives (Verified Allergy, Unknown, SKIN IRRITATION, WELTS, 11/20/17) Aspirin (Verified Allergy, Unknown, BRUISING ALL OVER, 11/20/17) BEE STING (Verified Allergy, Unknown, HIVES ALL OVER, TROUBLE BREATHING, ) Bacitracin (Verified Allergy, Unknown, RASH/SWELLING/WELTS, 11/20/17) Dicyclomine (Verified Allergy, Unknown, RASH ALL OVER BODY, 11/20/17) Doxycycline (Verified Allergy, Unknown, HIVES, 11/20/17) Ibuprofen (Verified Allergy, Unknown, BRUISING, 11/20/17) Lamotrigine (Verified Allergy, Unknown, WELTS, 11/20/17) Loteprednol (Verified Allergy, Unknown, FEELS INTENSE BURNING IN EYES, ) Mupirocin (Verified Allergy, Unknown, RASH, 11/20/17) Neomycin (Verified Allergy, Unknown, RASH/SWELLING/WELTS, 11/20/17) Polymyxin B (Verified Allergy, Unknown, RASH/SWELLING/WELTS, 11/20/17) Pregabalin (Verified Allergy, Unknown, SWELLING HANDS/FEET, MOUTH SORES, ) Prochlorperazine (Verified Allergy, Unknown, MUSCLE SPASM, 11/20/17) Sulfamethoxazole w/Trimethoprim (Verified Allergy, Unknown, RASH, 11/20/17) Tetracycline (Verified Allergy, Unknown, HIVES, 11/20/17) Topiramate (Verified Allergy, Unknown, WELTS, 11/20/17) Trimethobenzamide (Verified Allergy, Unknown, MUSCLE CONTRACTION, 11/20/17) Uncoded Allergies: BLEACH (Allergy, Unknown, AFFECTS BREATHING, 11/13/17) IVORY SOAP (Allergy, Unknown, HIVES, 11/13/17) LAVENDER (Allergy, Unknown, EYES/NOSE BURNING, 11/13/17) METALS (Allergy, Unknown, IRRITATION TO SITE/SWELLING, 11/13/17) CAN ONLY TOLERATE GOLD AND CHERRY SILVER PABA (SUNTAN LOTIONS) (Allergy, Unknown, SKIN RASH, 11/13/17) PATCHOULI (Allergy, Unknown, TRIGGERS BREATHING PROBLEMS, 11/13/17) PURFUMES (Allergy, Unknown, TROUBLE BREATHING, 11/13/17) ROUTE CANAL POSTS (Allergy, Unknown, SEVERE INFECTION, 11/13/17) SURGICAL AMPARO (Allergy, Unknown, SWELLING AT AREA/RASH, 11/13/17) WOOL (Allergy, Unknown, HIVES, 11/13/17) XIBROM (Allergy, Unknown, EYELIDS SWELLING, EYE DROPS, 11/13/17) Current Medications Reported Home Medications Medications Dose Route/Sig Max Daily Dose Days Date Category Dose Instructions Augmentin Xr (Amoxicillin & Pot Clavulanate) 1 Tab Tab 1 Tab PO DIRECTED 11/13/17 Reported BEING TREATED FOR SINUS INFECTION CURRENTLY Mylanta (Alum & Mag Hydrox-Simethicone) 1 Karen Karen 1 Dose PO QID PRN 11/13/17 Reported Afrin 0.05% Nasal [place] (Oxymetazoline Hcl) 1 Btl [place] 1 Btl NA DAILY PRN 11/13/17 Reported Benadryl Allergy (Diphenhydramine Hcl) 25 Mg Cap 1 Cap PO QID PRN 11/13/17 Reported Pepcid (Famotidine) 20 Mg Tab 20 Mg PO QID PRN 11/13/17 Reported Imodium (Loperamide HCl) 2 Mg Cap 2 Mg PO DIRECTED PRN 11/13/17 Reported Sudafed (Pseudoephedrine Hcl) 30 Mg Tab 30 Mg PO TID 11/13/17 Reported Mucinex Dm (Dextromethorphan-Guaifenesin) 1 Tab Tab 1 Tab PO TID PRN 11/13/17 Reported Ketoconazole (Ketoconazole (Topical)) 2 % Sha 1 Appln TOP 2XWK PRN 30 11/13/17 Reported Magic Swizzle - Diphenhy/Alum/Mag/Sucralfa (Miscellaneous Medication) Susp 1 Tsp PO Q4H PRN 11/13/17 Reported 30ML DIPHENHYDRAMINE SLN 12.5/5ML 60ML MAALOX 4GM CARAFATE SWISH AND SPIT Flagyl (Metronidazole) 500 Mg Tab 500 Mg PO Q8H PRN 11/13/17 Reported Pyridium (Phenazopyridine HCl) 200 Mg Tab 200 Mg PO TID PRN 11/13/17 Reported Mycelex (Clotrimazole) 10 Mg Tro 10 Mg MT DIRECTED 11/13/17 Reported Miralax (Polyethylene Glycol 3350) 1 Pow Pow 17 Gm PO DAILY PRN 11/13/17 Reported Acular Oph (Ketorolac Tromethamine (Ophth)) 0.5 % Hortencia 1 Drop OPB QID PRN 11/13/17 Reported Vigamox 0.5% Oph (Moxifloxacin Hcl (Ophth)) 0.5 % Ravi 1 Drops OPB QID PRN 11/13/17 Reported Pred Forte 1% Oph (Prednisolone Acetate (Ophth)) 1 % Karen 1 Drops OPB BID PRN 11/13/17 Reported [Vancomycin] 1 Drop OPB DIRECTED PRN 11/13/17 Reported Acyclovir 400 Mg Tab 1 Tab PO TID PRN 11/13/17 Reported Ambien (Zolpidem Tartrate) 10 Mg Tab 10 Mg PO HS PRN 11/13/17 Reported Phenergan (Promethazine HCl) 25 Mg Tab 25 Mg PO Q4H PRN 11/13/17 Reported Imitrex (Sumatriptan Succinate) 100 Mg Tab 1 Tab PO UD PRN 11/13/17 Reported Fioricet (Qduelzrjsr-Djitrtjtihrod-Sgttz) 1 Cap Cap DIRECTED PRN 11/13/17 Reported Erythromycin Opth (Erythromycin) 12 Appln/3.5 Gm Oint 1 Dose OPB DIRECTED PRN 11/13/17 Reported Tobradex Oph (Tobramycin/Dexamethasone) Oint 1 Appln OPB BID PRN 11/13/17 Reported Patanol 0.1% Oph (Olopatadine Hcl) 0.1 % Hortencia 1 Drop OPB BID 11/13/17 Reported Tobradex 0.3% Oph (Tobramycin/Dexamethasone) Susp 1 Drop OPB BID 11/13/17 Reported [Istalol] 1 Drop OPB BID 11/13/17 Reported Ocuflox Oph Soln (Ofloxacin (Oph)) 0.3 % Ravi 1 Drops OPB QID 11/13/17 Reported Nasacort Allergy 24Hr (Triamcinolone Acetonide (Nasal) 55 Mcg/Act Spr 1 [place] AUGUST BID 11/13/17 Reported Zyrtec (Cetirizine HCl) 10 Mg Tab 10 Mg PO QAM 11/13/17 Reported Meclizine 25 (Meclizine HCl) 25 Mg Tab 1 Tab PO QID 11/13/17 Reported Salagen (Pilocarpine HCl) 5 Mg Tab 5 Mg PO TID 11/13/17 Reported Zofran (Ondansetron HCl) 8 Mg Tab 8 Mg PO Q8H 11/13/17 Reported Protonix (Pantoprazole Sodium) 40 Mg Tab 40 Mg PO BID 11/13/17 Reported Oxycodone Hcl 20 Mg Tab 1 Tab PO Q4H PRN 11/13/17 Reported Oxycontin (Oxycodone Hcl) 20 Mg Tab 20 Mg PO Q12 11/13/17 Reported Toradol (Ketorolac Tromethamine) 10 Mg Tab 10 Mg PO TID PRN 11/13/17 Reported FOR 1 WEEK OF THE MONTH WHEN NOT TAKING RELAFIN [Relafen] 750 Mg PO BID 11/13/17 Reported FOR 3 WEEKS OUT OF THE MONTH Flexeril (Cyclobenzaprine Hcl) 10 Mg Tab 10 Mg PO TID 11/13/17 Reported Lasix (Furosemide) 40 Mg Tab 1.5 Tab PO DAILY PRN 11/13/17 Reported K-Tabs (Potassium Chloride) 10 Meq Tabcr 2 Tab PO BID 11/13/17 Reported Ativan (Lorazepam) 1 Mg Tab 1 Mg PO DAILY PRN 11/13/17 Reported Lopressor (Metoprolol Tartrate) 50 Mg Tab 50 Mg PO BID PRN 11/13/17 Reported Toprol-Xl (Metoprolol Succinate) 25 Mg Tabcr 25 Mg PO DIRECTED PRN 11/13/17 Reported Toprol-Xl (Metoprolol Succinate) 50 Mg Tabcr 50 Mg PO BID 11/13/17 Reported Synthroid (Levothyroxine Sodium) 175 Mcg Tab 175 Mcg PO DIRECTED 11/13/17 Reported TAKES 1 TAB DAILY TAKES 1.5 TAB WEEKLY Vital Signs Weight (Kilograms): 74.09 Height (Feet): 5 Height (Inches): 2 Date Time Temp Pulse Resp B/P (MAP) Pulse Ox O2 Delivery O2 Flow Rate FiO2 11/20/17 14:17 37.4 74 16 118/69 (85) 97 Room Air Physical Exam General Appearance: WD/WN, no apparent distress Respiratory/Chest: Auscultation: breath sounds normal Cardiovascular: Heart Auscultation: RRR Abdomen: Bowel Sounds: normal Inspection & Palpation: soft, non-distended, no tenderness, guarding & rebound Assessment and Plan Assessment: 62 yo CF who presents for EGD and colonoscopy secondary to abdominal pain, vomiting and diarrhea. Plan: Proceed with colonoscopy.
--- NOTE | 2017-11-20 15:46 | Discharge Instructions ---
Endoscopy Patient Instructions Date / Procedure(s) Performed Nov 20, 2017. Colonoscopy, EGD Allergy Information Coded Allergies: Adhesives (Verified Allergy, Unknown, SKIN IRRITATION, WELTS, 11/20/17) Aspirin (Verified Allergy, Unknown, BRUISING ALL OVER, 11/20/17) BEE STING (Verified Allergy, Unknown, HIVES ALL OVER, TROUBLE BREATHING, ) Bacitracin (Verified Allergy, Unknown, RASH/SWELLING/WELTS, 11/20/17) Dicyclomine (Verified Allergy, Unknown, RASH ALL OVER BODY, 11/20/17) Doxycycline (Verified Allergy, Unknown, HIVES, 11/20/17) Ibuprofen (Verified Allergy, Unknown, BRUISING, 11/20/17) Lamotrigine (Verified Allergy, Unknown, WELTS, 11/20/17) Loteprednol (Verified Allergy, Unknown, FEELS INTENSE BURNING IN EYES, ) Mupirocin (Verified Allergy, Unknown, RASH, 11/20/17) Neomycin (Verified Allergy, Unknown, RASH/SWELLING/WELTS, 11/20/17) Polymyxin B (Verified Allergy, Unknown, RASH/SWELLING/WELTS, 11/20/17) Pregabalin (Verified Allergy, Unknown, SWELLING HANDS/FEET, MOUTH SORES, ) Prochlorperazine (Verified Allergy, Unknown, MUSCLE SPASM, 11/20/17) Sulfamethoxazole w/Trimethoprim (Verified Allergy, Unknown, RASH, 11/20/17) Tetracycline (Verified Allergy, Unknown, HIVES, 11/20/17) Topiramate (Verified Allergy, Unknown, WELTS, 11/20/17) Trimethobenzamide (Verified Allergy, Unknown, MUSCLE CONTRACTION, 11/20/17) Uncoded Allergies: BLEACH (Allergy, Unknown, AFFECTS BREATHING, 11/13/17) IVORY SOAP (Allergy, Unknown, HIVES, 11/13/17) LAVENDER (Allergy, Unknown, EYES/NOSE BURNING, 11/13/17) METALS (Allergy, Unknown, IRRITATION TO SITE/SWELLING, 11/13/17) CAN ONLY TOLERATE GOLD AND CHERRY SILVER PABA (SUNTAN LOTIONS) (Allergy, Unknown, SKIN RASH, 11/13/17) PATCHOULI (Allergy, Unknown, TRIGGERS BREATHING PROBLEMS, 11/13/17) PURFUMES (Allergy, Unknown, TROUBLE BREATHING, 11/13/17) ROUTE CANAL POSTS (Allergy, Unknown, SEVERE INFECTION, 11/13/17) SURGICAL APMARO (Allergy, Unknown, SWELLING AT AREA/RASH, 11/13/17) WOOL (Allergy, Unknown, HIVES, 11/13/17) XIBROM (Allergy, Unknown, EYELIDS SWELLING, EYE DROPS, 11/13/17) Discharge Date / Findings Nov 20, 2017. EGD: Gastric polypectomy with endoclip x1, Hiatal hernia Colonoscopy: Random colon biopsies, Stool studies, Internal hemorrhoids Medication Instructions Stopped Medication(s): NO MEDS EXCEPT BLOOD PRSSURE AND PAIN MEDS OK to resume all medications today as prescribed Reported Home Medications Medications Dose Route/Sig Max Daily Dose Days Date Category Dose Instructions Augmentin Xr (Amoxicillin & Pot Clavulanate) 1 Tab Tab 1 Tab PO DIRECTED 11/13/17 Reported BEING TREATED FOR SINUS INFECTION CURRENTLY Mylanta (Alum & Mag Hydrox-Simethicone) 1 Karen Karen 1 Dose PO QID PRN 11/13/17 Reported Afrin 0.05% Nasal [place] (Oxymetazoline Hcl) 1 Btl [place] 1 Btl NA DAILY PRN 11/13/17 Reported Benadryl Allergy (Diphenhydramine Hcl) 25 Mg Cap 1 Cap PO QID PRN 11/13/17 Reported Pepcid (Famotidine) 20 Mg Tab 20 Mg PO QID PRN 11/13/17 Reported Imodium (Loperamide HCl) 2 Mg Cap 2 Mg PO DIRECTED PRN 11/13/17 Reported Sudafed (Pseudoephedrine Hcl) 30 Mg Tab 30 Mg PO TID 11/13/17 Reported Mucinex Dm (Dextromethorphan-Guaifenesin) 1 Tab Tab 1 Tab PO TID PRN 11/13/17 Reported Ketoconazole (Ketoconazole (Topical)) 2 % Sha 1 Appln TOP 2XWK PRN 30 11/13/17 Reported Magic Swizzle - Diphenhy/Alum/Mag/Sucralfa (Miscellaneous Medication) Susp 1 Tsp PO Q4H PRN 11/13/17 Reported 30ML DIPHENHYDRAMINE SLN 12.5/5ML 60ML MAALOX 4GM CARAFATE SWISH AND SPIT Flagyl (Metronidazole) 500 Mg Tab 500 Mg PO Q8H PRN 11/13/17 Reported Pyridium (Phenazopyridine HCl) 200 Mg Tab 200 Mg PO TID PRN 11/13/17 Reported Mycelex (Clotrimazole) 10 Mg Tro 10 Mg MT DIRECTED 11/13/17 Reported Miralax (Polyethylene Glycol 3350) 1 Pow Pow 17 Gm PO DAILY PRN 11/13/17 Reported Acular Oph (Ketorolac Tromethamine (Ophth)) 0.5 % Hortencia 1 Drop OPB QID PRN 11/13/17 Reported Vigamox 0.5% Oph (Moxifloxacin Hcl (Ophth)) 0.5 % Ravi 1 Drops OPB QID PRN 11/13/17 Reported Pred Forte 1% Oph (Prednisolone Acetate (Ophth)) 1 % Karen 1 Drops OPB BID PRN 11/13/17 Reported [Vancomycin] 1 Drop OPB DIRECTED PRN 11/13/17 Reported Acyclovir 400 Mg Tab 1 Tab PO TID PRN 11/13/17 Reported Ambien (Zolpidem Tartrate) 10 Mg Tab 10 Mg PO HS PRN 11/13/17 Reported Phenergan (Promethazine HCl) 25 Mg Tab 25 Mg PO Q4H PRN 11/13/17 Reported Imitrex (Sumatriptan Succinate) 100 Mg Tab 1 Tab PO UD PRN 11/13/17 Reported Fioricet (Ochhpptnpr-Coujwqfxxmxxu-Plfdy) 1 Cap Cap DIRECTED PRN 11/13/17 Reported Erythromycin Opth (Erythromycin) 12 Appln/3.5 Gm Oint 1 Dose OPB DIRECTED PRN 11/13/17 Reported Tobradex Oph (Tobramycin/Dexamethasone) Oint 1 Appln OPB BID PRN 11/13/17 Reported Patanol 0.1% Oph (Olopatadine Hcl) 0.1 % Hortencia 1 Drop OPB BID 11/13/17 Reported Tobradex 0.3% Oph (Tobramycin/Dexamethasone) Susp 1 Drop OPB BID 11/13/17 Reported [Istalol] 1 Drop OPB BID 11/13/17 Reported Ocuflox Oph Soln (Ofloxacin (Oph)) 0.3 % Ravi 1 Drops OPB QID 11/13/17 Reported Nasacort Allergy 24Hr (Triamcinolone Acetonide (Nasal) 55 Mcg/Act Spr 1 [place] AUGUST BID 11/13/17 Reported Zyrtec (Cetirizine HCl) 10 Mg Tab 10 Mg PO QAM 11/13/17 Reported Meclizine 25 (Meclizine HCl) 25 Mg Tab 1 Tab PO QID 11/13/17 Reported Salagen (Pilocarpine HCl) 5 Mg Tab 5 Mg PO TID 11/13/17 Reported Zofran (Ondansetron HCl) 8 Mg Tab 8 Mg PO Q8H 11/13/17 Reported Protonix (Pantoprazole Sodium) 40 Mg Tab 40 Mg PO BID 11/13/17 Reported Oxycodone Hcl 20 Mg Tab 1 Tab PO Q4H PRN 11/13/17 Reported Oxycontin (Oxycodone Hcl) 20 Mg Tab 20 Mg PO Q12 11/13/17 Reported Toradol (Ketorolac Tromethamine) 10 Mg Tab 10 Mg PO TID PRN 11/13/17 Reported FOR 1 WEEK OF THE MONTH WHEN NOT TAKING RELAFIN [Relafen] 750 Mg PO BID 11/13/17 Reported FOR 3 WEEKS OUT OF THE MONTH Flexeril (Cyclobenzaprine Hcl) 10 Mg Tab 10 Mg PO TID 11/13/17 Reported Lasix (Furosemide) 40 Mg Tab 1.5 Tab PO DAILY PRN 11/13/17 Reported K-Tabs (Potassium Chloride) 10 Meq Tabcr 2 Tab PO BID 11/13/17 Reported Ativan (Lorazepam) 1 Mg Tab 1 Mg PO DAILY PRN 11/13/17 Reported Lopressor (Metoprolol Tartrate) 50 Mg Tab 50 Mg PO BID PRN 11/13/17 Reported Toprol-Xl (Metoprolol Succinate) 25 Mg Tabcr 25 Mg PO DIRECTED PRN 11/13/17 Reported Toprol-Xl (Metoprolol Succinate) 50 Mg Tabcr 50 Mg PO BID 11/13/17 Reported Synthroid (Levothyroxine Sodium) 175 Mcg Tab 175 Mcg PO DIRECTED 11/13/17 Reported TAKES 1 TAB DAILY TAKES 1.5 TAB WEEKLY Provider Instructions Activity Restrictions - No exercising or heavy lifting for 24 hours. - Do not drink alcohol the day of the procedure. - Do not drive a car or operate machinery until the day after the procedure. - Do not make any important decisions or sign important papers in 24 hours after the procedure. Following Day: - Return to full activity which may include returning to work/school. Diet Start your diet with liquids and light foods (jello, soup, juice, toast). Then eat your usual diet if not nauseated. Treatment For Common After Affects For mild abdominal pain, bloating, or excessive gas: - Rest - Eat lightly - Lie on right side Follow-Up Information Follow-up with DR ELLIS as scheduled Anesthesia Information What You Should Know You have had a procedure that required some medicine to reduce anxiety and discomfort. This treatment is called moderate sedation. After receiving the treatment, you may be sleepy, but you will be able to breathe on your own. The effects of the treatment may last for several hours. Follow these instructions along with Activity/Diet recommendations noted above: * Do NOT do anything where dizziness or clumsiness would be dangerous. * Rest quietly at home today, then you can be up and about tomorrow. * Have a responsible person stay with you the rest of today. * You may have had an I.V. today. If so, you may take the dressing off later today. Recommendations Call your doctor if: * Trouble breathing * Continuous vomiting for more than 24 hours * Temperature above 101 degrees * Severe abdominal pain or bloating * Pain not relieved by pain medicine ordered * There is increased drainage or redness from any incision * A large amount of rectal bleeding greater than 2-3 tablespoons. (If you had a polyp/s removed or have hemorrhoids, a small amount of blood - from the rectum is to be expected.) * You have any unanswered questions or concerns. IN THE EVENT OF A SERIOUS EMERGENCY, GO TO THE NEAREST EMERGENCY ROOM Your discharge instructions were prepared by provider Mick Woods. Patient Instructions Signature Page Diana Pan Patient (or Guardian) Signature/Date: I have read and understand the instructions given to me by my caregivers. Caregiver/RN/Doctor Signature/Date: The above-named patient and/or guardian has received patient instructions on this date. + Original Patient Signature Page (only) stays with chart. Please make copy for patient.
--- NOTE | 2017-11-20 15:49 | Anesthesiology Progress Note ---
Anesthesia Post Op Note Date & Time Nov 20, 2017 at 15:49 Vital Signs Pain Intensity: 0 Vital Signs Past 12 Hours Date Time Temp Pulse Resp B/P (MAP) Pulse Ox O2 Delivery O2 Flow Rate FiO2 11/20/17 15:35 66 18 111/68 (82) 100 Room Air 11/20/17 15:21 36.5 72 18 107/63 (78) 99 Room Air 11/20/17 14:17 37.4 74 16 118/69 (85) 97 Room Air Notes Mental Status: alert / awake / arousable, participated in evaluation Pt Amnestic to Procedure: Yes Nausea / Vomiting: adequately controlled Pain: adequately controlled Airway Patency, RR, SpO2: stable & adequate BP & HR: stable & adequate Hydration State: stable & adequate Anesthetic Complications: no major complications apparent
--- NOTE | 2017-11-20 15:50 | GI REPORT ---
Patient Name: Diana Pan Procedure Date: 11/20/2017 2:20 PM Date of : 1955 Admit Type: Outpatient Age: 62 Gender: Female Attending MD: Mick Woods DO Procedure: Colonoscopy Providers: Mick Woods DO Referring MD: Mansi Mccabe Indications: Generalized abdominal pain, Chronic diarrhea Medicines: Monitored Anesthesia Care Complications: No immediate complications. Estimated Blood Loss: Estimated blood loss: none. Procedure: Pre-Anesthesia Assessment: - Prior to the procedure, a History and Physical was performed, and patient medications and allergies were reviewed. The patient's tolerance of previous anesthesia was also reviewed. The risks and benefits of the procedure and the sedation options and risks were discussed with the patient. All questions were answered, and informed consent was obtained. Prior Anticoagulants: The patient has taken no previous anticoagulant or antiplatelet agents. ASA Grade Assessment: III - A patient with severe systemic disease. After reviewing the risks and benefits, the patient was deemed in satisfactory condition to undergo the procedure. After I obtained informed consent, the scope was passed under direct vision. Throughout the procedure, the patient's blood pressure, pulse, and oxygen saturations were monitored continuously. The scope was introduced through the anus and advanced to the cecum, identified by appendiceal orifice and ileocecal valve. The colonoscopy was performed without difficulty. The patient tolerated the procedure well. The quality of the bowel preparation was good. The ileocecal valve, appendiceal orifice, and rectum were photographed. Findings: The perianal and digital rectal examinations were normal. Non-bleeding internal hemorrhoids were found during retroflexion. The hemorrhoids were small. Multiple random biopsies were obtained with cold forceps for histology in the entire colon. Fluid aspiration for Stool studies was performed in the entire colon. Impression: - Non-bleeding internal hemorrhoids. - Multiple random biopsies were obtained in the entire colon. - Fluid aspiration was performed. Recommendation: - Resume previous diet. - Continue present medications. - Repeat colonoscopy for surveillance based on pathology results. - Return to primary care physician as previously scheduled. Mick Woods DO 11/20/2017 3:50:17 PM This report has been signed electronically. Note Initiated On: 11/20/2017 2:20 PM Number of Addenda: 0 I attest to the content of the Intraoperative Record and orders documented therein, exceptions below {[id number]}
[2017-11-20 15:51] VITALS: BP 116/65; PULSE 65; O2SAT 98
--- NOTE | 2017-11-20 15:52 | GI REPORT ---
Patient Name: Diana Pan Procedure Date: 11/20/2017 2:26 PM Date of : 1955 Admit Type: Outpatient Age: 62 Gender: Female Attending MD: Mick Woods DO Procedure: Upper GI endoscopy Providers: Mick Woods DO Referring MD: Lars Ramey Indications: Generalized abdominal pain, Diarrhea Medicines: Monitored Anesthesia Care Complications: No immediate complications. Estimated Blood Loss: Estimated blood loss: none. Procedure: Pre-Anesthesia Assessment: - Prior to the procedure, a History and Physical was performed, and patient medications and allergies were reviewed. The patient's tolerance of previous anesthesia was also reviewed. The risks and benefits of the procedure and the sedation options and risks were discussed with the patient. All questions were answered, and informed consent was obtained. Prior Anticoagulants: The patient has taken no previous anticoagulant or antiplatelet agents. ASA Grade Assessment: III - A patient with severe systemic disease. After reviewing the risks and benefits, the patient was deemed in satisfactory condition to undergo the procedure. After obtaining informed consent, the endoscope was passed under direct vision. Throughout the procedure, the patient's blood pressure, pulse, and oxygen saturations were monitored continuously. The scope was introduced through the mouth, and advanced to the second part of duodenum. The upper GI endoscopy was accomplished without difficulty. The patient tolerated the procedure well. Findings: The examined esophagus was normal. A small hiatal hernia was present. A single 6 mm sessile polyp with no bleeding and no stigmata of recent bleeding was found in the gastric antrum. The polyp was removed with a hot snare. Resection and retrieval were complete. To prevent bleeding after the polypectomy, one hemostatic clip was successfully placed (MR conditional). There was no bleeding at the end of the procedure. The examined duodenum was normal. Impression: - Normal esophagus. - Small hiatal hernia. - A single gastric polyp. Resected and retrieved. Clip (MR conditional) was placed. - Normal examined duodenum. Recommendation: - Resume previous diet. - Continue present medications. - Await pathology results. - Return to primary care physician as previously scheduled. Mick Woods DO 11/20/2017 3:52:25 PM This report has been signed electronically. Note Initiated On: 11/20/2017 2:26 PM Number of Addenda: 0 I attest to the content of the Intraoperative Record and orders documented therein, exceptions below {[id number]}
== END | disposition home or self-care (01) ==
LOC: C.GI 13:42
PROVIDERS: ATTEND Internal Medicine
DX: R10.84 Generalized abdominal pain (principal); R11.10 Vomiting, unspecified; R19.7 Diarrhea, unspecified; D13.1 Benign neoplasm of stomach; K44.9 Diaphragmatic hernia without obstruction or gangrene; K64.8 Other hemorrhoids; I25.10 Atherosclerotic heart disease of native coronary artery without angina pectoris; E78.00 Pure hypercholesterolemia, unspecified; I11.0 Hypertensive heart disease with heart failure; Z86.718 Personal history of other venous thrombosis and embolism; Z86.711 Personal history of pulmonary embolism; Z91.030 Bee allergy status; Z88.2 Allergy status to sulfonamides; Z88.1 Allergy status to other antibiotic agents; Z88.0 Allergy status to penicillin

== ENCOUNTER 2017-11-25 11:47 | Emergency (ER) | payer BC ==
[~2017-11-25 11:47] MED LIST changes: -LIDOCAINE HCL 2% 2 ML VIAL (20MG/ML) ONE; -PROPOFOL IV EMULSION 10 MG/ML 20 ML VIAL ONE; -SODIUM CHLORIDE 0.9% 500ML 500 ML IV ONE
[2017-11-25 11:54] VITALS: Ht 157.5 cm
[2017-11-25] MEDS ORDERED: ONDANSETRON INJ 2 MG/ML 2 ML VIAL IV STA (12:14)
[2017-11-25] MEDS ORDERED: SODIUM CHLORIDE 0.9% 1000ML 1,000 ML IV STA (12:14)
[2017-11-25] MEDS ORDERED: MoRPHine SULFATE 4 MG/ML 1 ML CARP\\VIAL IV STA (12:14)
--- NOTE | 2017-11-25 12:17 | EMERGENCY ROOM VISIT NOTE ---
History Report prepared by Radhika: Jackson Vasquez Under the Supervision of: Dr. Nikhil Ferro M.D. First contact with patient: 12:01 Chief Complaint: ABDOMINAL PAIN Stated Complaint: STOMACH AND UPPER ABDOMINAL SEVERE PAIN History of Present Illness The patient is a 62 year old white female who presents to the Emergency Room with complaints of abdominal pain. The patient notes she is a patient of Dr. Casper (GI) who referred her to the ED. The patient had a recent EGD and Colonoscopy done on as well as had a polyp from inside her stomach removed. She states the procedure did have some complications, including bleeding that wouldn't stop and a clip needed to be inserted. The patient states since the procedure, she has had diarrhea and pain. She states the diarrhea is constant and she has been taking Imodium, which temporarily relieves the diarrhea. She states the pain is constant and describes it as sharp and stabbing in nature. She notes the pain is in her epigastric region as well as LLQ. The patient states she has been taking her pain medications she has at home, as she is a cancer patient, with minimal relief. She also notes having nausea which she is taking Zofran for, with minimal relief as well. The patient notes a history of a cholecystectomy in 2010, and a Salpingo Oophorectomy in 1995. The patient states she was recently on Augmentin, but is not taking it at this time. Source of History: patient Onset: x5 days Position: abdomen (LLQ) Symptom Intensity: moderate Quality: sharp, stabbing Timing: constant Associated Symptoms: + nausea, + vomiting, + diarrhea Review of Systems See HPI for pertinent positives and negatives. A total of ten systems were reviewed and were otherwise negative. Abdomen: + pain, + nausea, + vomiting, + diarrhea Past Medical & Surgical Medical Problems: (1) Abdominal laparoscopy (2) Ankylosing spondylitis (3) Cholecystectomy (4) ERCP (5) History of thyroid cancer (6) Hysterectomy (7) RLL/SLL (8) Sjoegren syndrome Surgical Problems: (1) History of dilatation and curettage (2) History of hysterectomy (3) History of thyroidectomy (4) History of tonsillectomy and adenoidectomy (5) Hx of cholecystectomy Family History Cancer (throat, lung, breast, pancreas, colon) Diabetes mellitus Hypertension Myocardial infarction Stroke Social History Smoking Status: Never Smoker Alcohol Use: none Drug Use: none Marital Status: Housing Status: lives with family Occupation Status: disabled Current/Historical Medications Scheduled Amoxicillin & Pot Clavulanate (Augmentin Xr), 1 TAB PO DIRECTED Cetirizine (Zyrtec), 10 MG PO QAM Clotrimazole (Mycelex), 10 MG MT DIRECTED Cyclobenzaprine Hcl (Flexeril), 10 MG PO TID Levothyroxine Sodium (Synthroid), 175 MCG PO DIRECTED Meclizine HCl (Meclizine 25), 1 TAB PO QID Metoprolol Succ (Toprol Xl) (Toprol-Xl), 50 MG PO BID Ofloxacin (Oph) (Ocuflox Oph Soln), 1 DROPS OPB QID Olopatadine Hcl (Patanol 0.1% Oph), 1 DROP OPB BID Ondansetron Hcl (Zofran), 8 MG PO Q8H Oxycodone Hcl (Oxycontin), 20 MG PO Q12 Pantoprazole (Protonix), 40 MG PO BID Pilocarpine (Salagen), 5 MG PO TID Potassium Chloride (K-Tabs), 2 TAB PO BID Pseudoephedrine Hcl (Sudafed), 30 MG PO TID Tobramycin/Dexamethasone 0.3% Oph (Tobradex 0.3% Oph), 1 DROP OPB BID Triamcinolone Acetonide (Nasal (Nasacort Allergy 24Hr), 1 SPRAY AUGUST BID [Istalol], 1 DROP OPB BID [Relafen], 750 MG PO BID Scheduled PRN Acyclovir (Acyclovir), 1 TAB PO TID PRN for PRN Alum & Mag Hydrox-Simethicone (Mylanta), 1 DOSE PO QID PRN for Indigestion Unaklabisn-Jczumcvnqcyuv-Trojf (Fioricet), DIRECTED PRN for Headache Dextromethorphan-Guaifenesin (Mucinex Dm), 1 TAB PO TID PRN for PRN Diphenhy/Alum/Mag/Sucralfa (Magic Swizzle - Diphenhy/Alum/Mag/Sucralfa), 1 TSP PO Q4H PRN for PRN MOUTH SORES Diphenhydramine Hcl (Benadryl Allergy), 1 CAP PO QID PRN for PRN Erythromycin Opth (Erythromycin Opth), 1 DOSE OPB DIRECTED PRN for EYE IRRITATION Famotidine (Pepcid), 20 MG PO QID PRN for Indigestion Furosemide (Lasix), 1.5 TAB PO DAILY PRN for SWELLING Ketoconazole (Topical) (Ketoconazole), 1 APPLN TOP 2XWK PRN for PRN Ketorolac (Toradol), 10 MG PO TID PRN for Pain Ketorolac Tromethamine (Ophth) (Acular Oph), 1 DROP OPB QID PRN for PRN Loperamide Hcl (Imodium), 2 MG PO DIRECTED PRN for Diarrhea Lorazepam (Ativan), 1 MG PO DAILY PRN for PRN TACHYCARDIA Metoprolol Succ (Toprol Xl) (Toprol-Xl), 25 MG PO DIRECTED PRN for IRREGULAR HEART BEAT Metoprolol Tartrate (Lopressor) (Lopressor), 50 MG PO BID PRN for PRN DIRECTED IRREGULAR BEAT Metronidazole (Flagyl), 500 MG PO Q8H PRN for INFECTION Moxifloxacin Hcl (Ophth) (Vigamox 0.5% Oph), 1 DROPS OPB QID PRN for PRN Oxycodone Hcl (Oxycodone Hcl), 1 TAB PO Q4H PRN for Pain Oxymetazoline Hcl (Afrin 0.05% Nasal [place]), 1 BTL NA DAILY PRN for PRN Phenazopyridine HCl (Pyridium), 200 MG PO TID PRN for BLADDER INFECTION Polyethylene Glycol 3350 (Miralax), 17 GM PO DAILY PRN for Constipation Prednisolone Acetate (Ophth) (Pred Forte 1% Oph), 1 DROPS OPB BID PRN for PRN Promethazine Hcl (Phenergan), 25 MG PO Q4H PRN for Nausea Sumatriptan Succinate (Imitrex), 1 TAB PO UD PRN for Migraine Tobramycin/Dexamethasone Oph (Tobradex Oph), 1 APPLN OPB BID PRN for PRN EYE SWELLING Zolpidem Tartrate (Ambien), 10 MG PO HS PRN for Sleep [Vancomycin], 1 DROP OPB DIRECTED PRN for PRN Allergies Coded Allergies: Adhesives (Verified Allergy, Unknown, SKIN IRRITATION, WELTS, 11/25/17) Aspirin (Verified Allergy, Unknown, BRUISING ALL OVER, 11/25/17) BEE STING (Verified Allergy, Unknown, HIVES ALL OVER, TROUBLE BREATHING, ) Bacitracin (Verified Allergy, Unknown, RASH/SWELLING/WELTS, 11/25/17) Dicyclomine (Verified Allergy, Unknown, RASH ALL OVER BODY, 11/25/17) Doxycycline (Verified Allergy, Unknown, HIVES, 11/25/17) Ibuprofen (Verified Allergy, Unknown, BRUISING, 11/25/17) Lamotrigine (Verified Allergy, Unknown, WELTS, 11/25/17) Loteprednol (Verified Allergy, Unknown, FEELS INTENSE BURNING IN EYES, ) Mupirocin (Verified Allergy, Unknown, RASH, 11/25/17) Neomycin (Verified Allergy, Unknown, RASH/SWELLING/WELTS, 11/25/17) Polymyxin B (Verified Allergy, Unknown, RASH/SWELLING/WELTS, 11/25/17) Pregabalin (Verified Allergy, Unknown, SWELLING HANDS/FEET, MOUTH SORES, ) Prochlorperazine (Verified Allergy, Unknown, MUSCLE SPASM, 11/25/17) Sulfamethoxazole w/Trimethoprim (Verified Allergy, Unknown, RASH, 11/25/17) Tetracycline (Verified Allergy, Unknown, HIVES, 11/25/17) Topiramate (Verified Allergy, Unknown, WELTS, 11/25/17) Trimethobenzamide (Verified Allergy, Unknown, MUSCLE CONTRACTION, 11/25/17) Uncoded Allergies: BLEACH (Allergy, Unknown, AFFECTS BREATHING, 11/13/17) IVORY SOAP (Allergy, Unknown, HIVES, 11/13/17) LAVENDER (Allergy, Unknown, EYES/NOSE BURNING, 11/13/17) METALS (Allergy, Unknown, IRRITATION TO SITE/SWELLING, 11/13/17) CAN ONLY TOLERATE GOLD AND CHERRY SILVER PABA (SUNTAN LOTIONS) (Allergy, Unknown, SKIN RASH, 11/13/17) PATCHOULI (Allergy, Unknown, TRIGGERS BREATHING PROBLEMS, 11/13/17) PURFUMES (Allergy, Unknown, TROUBLE BREATHING, 11/13/17) ROUTE CANAL POSTS (Allergy, Unknown, SEVERE INFECTION, 11/13/17) SURGICAL AMPARO (Allergy, Unknown, SWELLING AT AREA/RASH, 11/13/17) WOOL (Allergy, Unknown, HIVES, 11/13/17) XIBROM (Allergy, Unknown, EYELIDS SWELLING, EYE DROPS, 11/13/17) Physical Exam Vital Signs Date Time Temp Pulse Resp B/P (MAP) Pulse Ox O2 Delivery O2 Flow Rate FiO2 11/25/17 16:53 36.8 73 22 126/74 95 11/25/17 14:47 73 21 98 11/25/17 14:42 140/80 11/25/17 14:14 77 22 152/82 99 Room Air 11/25/17 14:13 152/82 11/25/17 11:54 36.8 88 22 105/66 100 Room Air Physical Exam GENERAL: Awake, alert, well-appearing, NAD. Patient wearing face-mask in room. HENT: Normocephalic, atraumatic. EYES: Normal conjunctiva. Sclera non-icteric. PERRL. No anisocoria. NECK: Supple. No nuchal rigidity. FROM. RESPIRATORY: CTAB, no rhonchi, wheezing, crackles CARDIAC: RRR, no MRG ABDOMEN: Soft, Tenderness with palpation noted epigastric, RUQ, LLQ. Mild guarding with no rebound. BS+ MSK: No chest wall TTP, no LE edema NEURO: GCS 15, CN 2-12 intact, moves all 4s on command SKIN: No rash or jaundice noted. Medical Decision & Procedures ER Provider Diagnostic Interpretation: Radiology results as stated below per my review and radiologist interpretation: ABD/PELVIS IV CONTRAST ONLY CLINICAL HISTORY: 62 years-old Female presenting with s/p EGD/colonsco Thurs, epigastric RUQ (no GB) LLQ pain. TECHNIQUE: Multidetector CT of the abdomen and pelvis was performed after the administration of intravenous contrast. IV contrast: 120 mL of Optiray 320. A dose lowering technique was used consistent with the principles of ALARA (as low as reasonably achievable). COMPARISON: 04/25/2013. CT DOSE (mGy.cm): The estimated cumulative dose is 433.02 mGy.cm. FINDINGS: Driller Multiple Spindle topogram: Cholecystectomy clips. Lung bases: Minimal basilar opacities, likely atelectasis. Normal heart size. No pericardial or pleural effusion. Liver: Normal morphology. Density suggestive of hepatic steatosis. No focal lesion. Patent hepatic vasculature. Biliary: Mild biliary ductal prominence likely a reservoir effect in the post cholecystectomy state. Gallbladder surgically absent. Pancreas: Mild parenchymal atrophy. Spleen: Normal. Adrenal glands: Normal. Kidneys and ureters: Normal. No hydronephrosis. Bladder: Normal. Pelvic organs: Uterus surgically absent. No adnexal masses. Small cystic focus in the left adnexa (series 3 image 327), unchanged since 2014. Bowel: Moderate stool burden in the right and transverse colon. The appendix is normal. No bowel obstruction. Endoscopy clip projects over the pylorus. Peritoneal cavity: No free fluid or intraperitoneal gas. Lymph nodes: Multifocal lymphadenopathy. Lymph nodes have significantly increased in size since 2014 throughout the retroperitoneum and also involving the mesentery and pelvis. Vasculature: Aorta and IVC patent and normal in caliber. Abdominal wall: Small fat-containing umbilical hernia. Musculoskeletal: Degenerative changes of the spine. IMPRESSION: 1. Significant interval enlargement of lymphadenopathy in the abdomen and pelvis. This raises concern for lymphoproliferative disease though other etiologies such as sarcoidosis could be considered given the chronicity of some degree of lymphadenopathy. External iliac lymph nodes would likely be amenable to percutaneous CT-guided biopsy if this is of clinical necessity. 2. Endoscopy clip projects over the pylorus. 3. Hepatic steatosis. Electronically signed by: Yariel Braxton M.D. 11/25/2017 2:12 PM Dictated Date/Time: 11/25/2017 2:03 PM Laboratory Results 11/25/17 12:40 Red Blood Count 4.95, Mean Corpuscular Volume 58.4, Mean Corpuscular Hemoglobin 17.8, Mean Corpuscular Hemoglobin Concent 30.4, Neutrophils (%) (Auto) 52.5, Lymphocytes (%) (Auto) 38.1, Monocytes (%) (Auto) 8.0, Eosinophils (%) (Auto) 0.8, Basophils (%) (Auto) 0.4, Neutrophils # (Auto) 2.63, Lymphocytes # (Auto) 1.91, Monocytes # (Auto) 0.40, Eosinophils # (Auto) 0.04, Basophils # (Auto) 0.02 11/25/17 12:40 Test 11/25/17 12:40 11/25/17 12:52 11/25/17 14:15 White Blood Count 5.01 K/uL (4.8-10.8) Red Blood Count 4.95 M/uL (4.2-5.4) Hemoglobin 8.8 g/dL (12.0-16.0) Hematocrit 28.9 % (37-47) Mean Corpuscular Volume 58.4 fL (80-100) Mean Corpuscular Hemoglobin 17.8 pg (25-34) Mean Corpuscular Hemoglobin Concent 30.4 g/dl (32-36) Platelet Count 137 K/uL (130-400) Neutrophils (%) (Auto) 52.5 % Lymphocytes (%) (Auto) 38.1 % Monocytes (%) (Auto) 8.0 % Eosinophils (%) (Auto) 0.8 % Basophils (%) (Auto) 0.4 % Neutrophils # (Auto) 2.63 K/uL (1.4-6.5) Lymphocytes # (Auto) 1.91 K/uL (1.2-3.4) Monocytes # (Auto) 0.40 K/uL (0.11-0.59) Eosinophils # (Auto) 0.04 K/uL (0-0.5) Basophils # (Auto) 0.02 K/uL (0-0.2) RDW Standard Deviation 41.8 fL (36.4-46.3) RDW Coefficient of Variation 19.6 % (11.5-14.5) Immature Granulocyte % (Auto) 0.2 % Immature Granulocyte # (Auto) 0.01 K/uL (0.00-0.02) Platelet Estimate DECREASED Hypochromasia PRESENT Anisocytosis PRESENT Microcytosis PRESENT Tear Drop Cells 1+ Prothrombin Time 10.5 SECONDS (9.0-12.0) Prothromb Time International Ratio 1.0 (0.9-1.1) Activated Partial Thromboplast Time 23.1 SECONDS (21.0-31.0) Partial Thromboplastin Ratio 0.9 Estimated GFR () 75.9 Estimated GFR (Non- 65.5 BUN/Creatinine Ratio 14.2 (10-20) Uric Acid 5.4 mg/dl (2.6-7.2) Calcium Level 8.3 mg/dl (8.5-10.1) Phosphorus Level 2.8 mg/dl (2.5-4.9) Magnesium Level 2.2 mg/dl (1.8-2.4) Total Bilirubin 0.2 mg/dl (0.2-1) Direct Bilirubin < 0.1 mg/dl (0-0.2) Aspartate Amino Transf (AST/SGOT) 18 U/L (15-37) Alanine Aminotransferase (ALT/SGPT) 18 U/L (12-78) Alkaline Phosphatase 100 U/L (45-117) Troponin I < 0.015 ng/ml (0-0.045) Total Protein 6.6 gm/dl (6.4-8.2) Albumin 3.5 gm/dl (3.4-5.0) Lipase 102 U/L (73-393) Bedside Hemoglobin 9.5 g/dl (12.0-16.0) Bedside Hematocrit 28 % (37-47) Bedside Sodium 134 mEq/L (135-144) Bedside Potassium 4.4 mEq/L (3.3-5.0) Bedside Chloride 98 mEq/L (101-112) Bedside Total CO2 26 mEq/l (24-31) Anion Gap 15.0 mmol/L (16-25) Bedside Blood Urea Nitrogen 13 mg/dl (7-18) Bedside Creatinine 0.9 mg/dl (0.6-1.3) Bedside Glucose (other) 89 mg/dl (70-99) Bedside Ionized Calcium ([place]) 1.05 mmol/l (1.12-1.32) Urine Color YELLOW Urine Appearance CLEAR (CLEAR) Urine pH 8.5 (4.5-7.5) Urine Specific [place] 1.011 (1.000-1.030) Urine Protein NEG (NEG) Urine Glucose (UA) NEG (NEG) Urine Ketones NEG (NEG) Urine Occult Blood NEG (NEG) Urine Nitrite NEG (NEG) Urine Bilirubin NEG (NEG) Urine Urobilinogen NEG (NEG) Urine Leukocyte Esterase NEG (NEG) Laboratory results reviewed by me Medications Administered Medications (Trade) Dose Ordered Sig/Brandon Route Start Time Stop Time Status Last Admin Dose Admin Sodium Chloride 1,000 ml @ 999 mls/hr Q1H1M STAT IV 11/25/17 12:14 11/25/17 13:14 DC 11/25/17 13:11 999 MLS/HR Ondansetron HCl (Zofran Inj) 4 mg NOW STAT IV 11/25/17 12:14 11/25/17 12:16 DC 11/25/17 13:12 4 MG Morphine Sulfate (MoRPHine SULFATE INJ) 4 mg NOW STAT IV 11/25/17 12:14 11/25/17 12:16 DC 11/25/17 13:12 4 MG Hydromorphone HCl (Dilaudid Inj) 0.5 mg NOW STAT IV 11/25/17 14:28 11/25/17 14:29 DC 11/25/17 14:37 0.5 MG Metoclopramide HCl (Reglan Inj) 10 mg NOW STAT IV. 11/25/17 14:28 11/25/17 14:29 DC 11/25/17 14:28 10 MG ECG Per My Interpretation Indication: abdominal pain Rate (beats per minute): 78 Rhythm: normal sinus Findings: other (Normal intervals and [place], TWI in V2 and Lead 3) Comparison ECG Date: When compared to May 2017, TWI in V2 is new, but Lead 3 is old ED Course Rechecks: 1425: Patient states she is still in pain 1609: Patient states she is feeling much better. Will attempt PO challenge. If passes, she will be discharged. Medical Decision Nursing notes reviewed. Ancillary studies and prior records reviewed. The patient is a 62 year old white female w/ PMHx lymphocytic leukemia who presents to the Emergency Room with complaints of abdominal pain. Differential diagnosis: Etiologies such as appendicitis, diverticulitis, PUD, biliary pathology, UTI, pancreatitis, obstruction, mesenteric ischemia, aortic pathology, infections, inflammatory bowel disease, renal colic, as well as others were entertained. Patient was seen and evaluated the bedside. The patient does have a known history of lymphocytic leukemia status post last treatment in April for which he sees [facility]. The patient is presenting with abdominal pain that is been fairly constant since last which point she had an EGD and colonoscopy completed by Dr. casper. The patient does have tenderness diffusely but more localized to the epigastric right upper quadrant left lower quadrant areas. The patient has had nausea and associated diarrhea. The patient was recently on Augmentin last week for a sinusitis. Patient did have blood work completed along with a CT abdomen pelvis and was given IV fluids as well as medications for symptom control. Patient's blood work is fairly unremarkable. The patient had normal white count. Patient does have chronic anemia. Platelet count somewhat low at 137, 000. The patient had normal percentages in terms of her differential of white cell lines. Patient has normal kidney function no changes in LFTs or lipase. The patient was still complaining of pain so she did receive a second round of pain medication. CT of the abdomen pelvis does show increased lymphadenopathy which is likely secondary to her history of malignancy but no other acute findings. I did discuss this with the patient and to discuss it with her primary pairer odds Dr. casper he stated that there would be no further interventions would need at this time. I did discuss this with the patient stated that she would try attempting tolerate p.o. The patient was able to do this without issue. Patient was counseled on a clear liquid diet. Patient was told that she could try some saltines of broths and slowly advance her diet as tolerated. Patient was given strict follow-up, discharge, and return precautions. All questions were answered. Patient was deemed suitable for outpatient follow-up at this time. Patient agreed with the plan of care and was safely discharged home. Medication Reconcilliation Current Medication List: was personally reviewed by me Blood Pressure Screening Patient's blood pressure: Normal blood pressure Consults Consulting Physician: Case Returned Call: [phone] No further recommendations at this time. Impression Primary Impression: Abdominal pain Additional Impressions: Lymphadenopathy Anemia Scribe Attestation The scribe's documentation has been prepared under my direction and personally reviewed by me in its entirety. I confirm that the note above accurately reflects all work, treatment, procedures, and medical decision making performed by me. Departure Information Dispostion Home / Self-Care Referrals Mansi Mccabe M.D. (PCP) Patient Instructions Abdominal Pain, Diarrhea, My [facility] Additional Instructions Please return to the emergency department if you have worsening or recurrent symptoms not amenable to at-home treatment. Please call for a follow-up appointment with her primary care physician. Please take your medications as prescribed. If you have other concerns and/or complaints please feel free to also call your primary care physician's office or return the ED for further evaluation, management, and treatment. You were found to have an elevated blood pressure today (>120 sytolic or >90 diastolic). Per medicare guidelines, you need to follow up with this blood pressure screening with your Primary Care Physician (PCP). For a new PCP call [phone]. You received narcotic or benzodiazepene medication while in the emergency room today. This is an addictive medication that may cause drowziness as well as constipation. Do not drive, operate heavy machinery, or drink alcohol under the influence of this medication. You may take tylenol 650 mg every 6 hours as needed for pain/fever unless told by your physician to not take it or have liver problems. Take your medications as prescribed. You have been examined and treated today on an emergency basis only. This is not a substitute for, or an effort to provide, complete comprehensive medical care. It is impossible to recognize and treat all injuries or illnesses in a single emergency department visit. It is therefore important that you follow up closely with [facility], your PCP, and/or your specialist(s). Call as soon as possible for an appointment. Thank you for your time and consideration. I look forward to speaking with you again soon. Please don't hesitate to call us if you have any questions. Problem Qualifiers Primary Impression: Abdominal pain Abdominal location: generalized Qualified Codes: R10.84 - Generalized abdominal pain Additional Impressions: Anemia Anemia type: unspecified type Qualified Codes: D64.9 - Anemia, unspecified
[2017-11-25] MEDS ORDERED: OPTIRAY 320 IV PRN (12:30)
[2017-11-25 12:50] LABS: MEAN CORPUSCULAR HGB CONC 30.4 g/dl (32-36)
[2017-11-25 12:58] LABS: HEMATOCRIT 28.9 % (37-47); HEMOGLOBIN 8.8 g/dL (12.0-16.0); MEAN CELL VOLUME 58.4 fL (80-100); MEAN CORPUSCULAR HEMOGLOBIN 17.8 pg (25-34); RED CELL DISTRIBUTION WIDTH CV 19.6 % (11.5-14.5); RED CELL DISTRIBUTION WIDTH SD 41.8 fL (36.4-46.3); WHITE BLOOD COUNT 5.01 K/uL (4.8-10.8)
[2017-11-25 13:06] LABS: PTT PATIENT 23.1 SECONDS (21.0-31.0)
[2017-11-25 13:10] LABS: PLATELET COUNT 137 K/uL (130-400)
[2017-11-25 13:11] LABS: ALBUMIN 3.5 gm/dl (3.4-5.0); ALKALINE PHOSPHATASE 100 U/L (45-117); ALT/SGPT 18 U/L (12-78); AST/SGOT 18 U/L (15-37); BLOOD UREA NITROGEN 13 mg/dl (7-18); CALCIUM 8.3 mg/dl (8.5-10.1); CARBON DIOXIDE 25 mmol/L (21-32); CREATININE 0.94 mg/dl (0.60-1.20); GLUCOSE 90 mg/dl (70-99); LIPASE 102 U/L (73-393); PHOSPHORUS 2.8 mg/dl (2.5-4.9); POTASSIUM 4.3 mmol/L (3.5-5.1); SODIUM 133 mmol/L (136-145); TOTAL PROTEIN 6.6 gm/dl (6.4-8.2); URIC ACID 5.4 mg/dl (2.6-7.2)
[2017-11-25 13:30] LABS: BASO % 0.4 %; BASO ABS # 0.02 K/uL (0-0.2); EOS % 0.8 %; EOS ABS # 0.04 K/uL (0-0.5); IG# 0.01 K/uL (0.00-0.02); LYMPH % 38.1 %; LYMPH ABS # 1.91 K/uL (1.2-3.4); NEUT % 52.5 %; NEUT ABS # 2.63 K/uL (1.4-6.5)
[2017-11-25 13:38] LABS: ISTAT CREATININE 0.9 mg/dl (0.6-1.3); ISTAT IONIZED CALCIUM 1.05 mmol/l (1.12-1.32); ISTAT POTASSIUM 4.4 mEq/L (3.3-5.0)
--- NOTE | 2017-11-25 14:13 | DIAGNOSTIC IMAGING REPORT ---
ABD/PELVIS IV CONTRAST ONLY CLINICAL HISTORY: 62 years-old Female presenting with s/p EGD/colonsco Thurs, epigastric RUQ (no GB) LLQ pain. TECHNIQUE: Multidetector CT of the abdomen and pelvis was performed after the administration of intravenous contrast. IV contrast: 120 mL of Optiray 320. A dose lowering technique was used consistent with the principles of ALARA (as low as reasonably achievable). COMPARISON: 04/25/2013. CT DOSE (mGy.cm): The estimated cumulative dose is 433.02 mGy.cm. FINDINGS: Efficiency Expert topogram: Cholecystectomy clips. Lung bases: Minimal basilar opacities, likely atelectasis. Normal heart size. No pericardial or pleural effusion. Liver: Normal morphology. Density suggestive of hepatic steatosis. No focal lesion. Patent hepatic vasculature. Biliary: Mild biliary ductal prominence likely a reservoir effect in the post cholecystectomy state. Gallbladder surgically absent. Pancreas: Mild parenchymal atrophy. Spleen: Normal. Adrenal glands: Normal. Kidneys and ureters: Normal. No hydronephrosis. Bladder: Normal. Pelvic organs: Uterus surgically absent. No adnexal masses. Small cystic focus in the left adnexa (series 3 image 327), unchanged since 2014. Bowel: Moderate stool burden in the right and transverse colon. The appendix is normal. No bowel obstruction. Endoscopy clip projects over the pylorus. Peritoneal cavity: No free fluid or intraperitoneal gas. Lymph nodes: Multifocal lymphadenopathy. Lymph nodes have significantly increased in size since 2014 throughout the retroperitoneum and also involving the mesentery and pelvis. Vasculature: Aorta and IVC patent and normal in caliber. Abdominal wall: Small fat-containing umbilical hernia. Musculoskeletal: Degenerative changes of the spine. IMPRESSION: 1. Significant interval enlargement of lymphadenopathy in the abdomen and pelvis. This raises concern for lymphoproliferative disease though other etiologies such as sarcoidosis could be considered given the chronicity of some degree of lymphadenopathy. External iliac lymph nodes would likely be amenable to percutaneous CT-guided biopsy if this is of clinical necessity. 2. Endoscopy clip projects over the pylorus. 3. Hepatic steatosis. Electronically signed by: Yariel Braxton M.D. 11/25/2017 2:12 PM Dictated Date/Time: 11/25/2017 2:03 PM
[2017-11-25] MEDS ORDERED: METOCLOPRAMIDE HCL INJ 5 MG/ML 2 ML VIAL IV. STA (14:28)
[2017-11-25] MEDS ORDERED: HYDROmorphone INJ 0.5 MG/0.5 ML SYR IV STA (14:28)
[2017-11-25 16:53] VITALS: BP 126/74; PULSE 73; TEMP 36.8; O2SAT 95
== END 2017-11-25 16:54 | disposition home or self-care (01) ==
LOC: C.EDB 11:49 → C.EDA 16:54
DX: R10.84 Generalized abdominal pain (principal); R59.1 Generalized enlarged lymph nodes; D64.9 Anemia, unspecified; R11.2 Nausea with vomiting, unspecified; R19.7 Diarrhea, unspecified; Z79.899 Other long term (current) drug therapy; Z88.8 Allergy status to other drugs, medicaments and biological substances; Z85.850 Personal history of malignant neoplasm of thyroid; Z83.3 Family history of diabetes mellitus; Z82.49 Family history of ischemic heart disease and other diseases of the circulatory system

== ENCOUNTER 2021-04-15 23:03 | Inpatient (IN) ==
[2021-04-15] MEDS ORDERED: HYDROmorphone INJ 0.5 MG/0.5 ML SYR IV STA (23:29)
[2021-04-15] MEDS ORDERED: VANCOMYCIN CONSULT ACTIVE PRN (23:38)
[2021-04-15] MEDS ORDERED: VANCOMYCIN HCL 2,000 MG in SODIUM CHLORIDE 0.9% 500 ML IV ONE (23:38)
[2021-04-15 23:56] LABS: Mean Corpuscular Hgb Conc 31.3 g/dL (32-36)
--- NOTE | 2021-04-15 23:56 | Emergency Department Note ---
Impression & Plan Acute neck pain, Hypokalemia, Diarrhea Admit to the [facility] ED Provider Note NAME: LASHAY KIM AGE: 66 SEX: F ARRIVES VIA: Ambulance INFORMANT: Patient ED PROVIDER(S): Kathy Chin DO CHIEF COMPLAINT: Neck pain PLAN: Disposition: Admit to the [facility] Condition: Stable MEDICAL DECISION MAKING: This is a 66-year-old female patient with a history of CLL and lymphoma currently receiving oral chemotherapy who presents to the emergency department with severe neck pain and stiffness. The patient has been taking oral antibiotics for a dacryocystitis over the past 2 weeks that it is draining. In the past 12 hours, she has developed head and neck pain and now neck stiffness. She contacted her oncologist at [facility] and they directed her to the emergency department for evaluation. Patient has CT scan of her head, neck and face which were essentially unremarkable except for a dacryocystocele. There was no obvious abscess or infectious source identified. The patient is afebrile and has no significant leukocytosis but her presentation was very concerning for meningitis. She was immediately started on vancomycin as she has a history of MRSA. A spinal tap was performed and the cell count was 0. The patient required multiple doses of IV analgesia and muscle relaxant to maintain any type of pain relief to her neck. [facility]. Triage Nursing notes reviewed and agree with them. Additional history obtained from EMS Prior medical records reviewed including a large packet of paperwork that the patient brought with her from [facility]. Vital Signs: reviewed and remarkable for grade fever Differential diagnosis: Meningitis, epidural abscess, sepsis ER treatment provided: IV Dilaudid x3 IV vancomycin IV Ativan Diagnostics interpreted by me: ECG: None Cardiac Monitoring: Normal sinus rhythm at 90 Laboratory studies: See below Imaging studies: As per stat rad CT head: Comparison: MRI brain 11/08/2020 No acute intracranial hemorrhage, extra-axial fluid collection or mass-effect. No CT evidence of acute territorial infarct. CT facial: 11 mm well-defined cystic thin-walled left-sided medial canthal mass may represent 9 dacryocystocele. Small abscess considered less likely but not excluded. Small amount of air is visualized adjacent to the distal right nasolacrimal duct with mild associated soft tissue swelling of the right medial canthus, which could be seen in the clinical setting of dacryocystitis. No organized abscess is visualized. Bilateral lens implants. CT C-spine comparison: MRI C-spine 10/11/2019 No acute fracture or malalignment of the C-spine Multilevel degenerative changes of the cervical spine HPI: 66/F arrives for evaluation of neck pain. This is a 66-year-old female patient with a history of CLL and lymphoma currently receiving oral chemotherapy who presents to the emergency department with severe neck pain and stiffness. The patient has been taking oral antibiotics for right dacryocystitis over the past 2 weeks that is draining. The patient had been taking amoxicillin and recently switched to Augmentin. She has developed some diarrhea from this. In the past 12 hours, she developed head neck pain and now neck stiffness. She contacted her oncologist at [facility] and they directed her to the closest emergency department for evaluation to rule out meningitis. Patient took her temperature at home and found to be 101.8. Patient has been applying vancomycin eyedrops to her eyes with no significant improvement. ROS: See above HPI for pertinent positives & negatives. A total of 10 systems reviewed and were otherwise negative. PAST MEDICAL HISTORY:See Below PAST SURGICAL HISTORY:See Below FAMILY HISTORY:See Below SOCIAL HISTORY:See Below HOME MEDICATIONS:See list ALLERGIES:See list VITALS:See Below PHYSICAL EXAMINATION: HEENT: Head - normocephalic and atraumatic. Pupils are equal, round, and reactive to light. Extraocular eye muscles are intact and sclera are anicteric. Ears - bilaterally patent canals with noninjected tympanic membranes and no evidence of hemotympanum. Nose - moist nasal mucosa without discharge. Mouth - moist buccal mucosa. Oropharynx is nonerythematous and there is no tonsillar exudate or edema noted. Neck: Supple; no cervical lymphadenopathy but the patient has significant nuchal rigidity and can barely flex or extend her neck and certainly has no side bending or rotation possible. Heart: Regular rate and rhythm. There is a normal S1 and S2 with no murmurs, clicks, or gallops appreciated. Lungs: Clear to auscultation bilaterally with no wheezes, rales, or rhonchi. Abdomen: Soft, completely nontender, nondistended, with good bowel sounds. There are no palpable pulsatile masses or hepatosplenomegaly. There is no guarding, rigidity, or rebound noted. Extremities: No evidence of cyanosis, clubbing, or edema. There are easily palpable peripheral pulses. Neuro:The patient is awake and alert, oriented to day, time, and place. Muscle strength is 5/5 in all 4 extremities. The patient has equal computational linguist strength and equal pedal push and pull. There are no cerebellar signs. ED COURSE: Patient was evaluated in room C9. A complete history and physical was performed. A septic protocol was performed including Covid testing. Once blood cultures were obtained, the patient was started on IV vancomycin drip. She was given IV Dilaudid for pain. An order was placed for continuous cardiac monitori ng. The patient was in a normal sinus rhythm at a rate of 90. She will go for a CT scan with contrast of her face and C-spine. She will also have a CT scan of the brain. Upon returning from CAT scan, the patient will undergo spinal tap. Patient continued to complain of severe pain in her head n shell and was given a second dose of IV Dilaudid. Patient was started on IV vancomycin because of her history of MRSA. A spinal tap was performed and fluid was sent for testing. Patient complained of severe spasms in her neck and she was given a dose of IV Ativan. I reviewed the results of the CSF with the patient and she continued to complain of pain in the neck and was given another dose of IV Dilaudid. I discussed the case with the [facility] hospitalist and they will evaluate for further management. Kathy Chin DO Past Med/Surg History Medical History (Updated 04/16/21 @ 07:44 by Kathy Chin DO) Ankylosing spondylitis Bacteremia due to Gram-positive bacteria (2013) CLL (chronic lymphocytic leukemia) Ganglion cyst of both hands History of thyroid cancer Left knee DJD Sjoegren syndrome Thalassemia syndrome Trigger finger of both hands Venous insufficiency (chronic) (peripheral) Surgical History H/O colonoscopy (2010) History of common bile duct surgery History of dilatation and curettage History of throat surgery (2009) Thoat mass excised (Dr. Mercedes) History of thyroidectomy History of tonsillectomy and adenoidectomy Hx of cholecystectomy S/P cataract extraction S/P AVERY-BSO S/P tubal ligation Social History Smoking Status: Never smoker Hx Alcohol Use: No Hx Substance Use: No Preferred Language: Ukrainian Visual Impairment: No Limitations Hearing Ability: Normal Beliefs That Will Affect Care: None marital status: Current Living Situation: Spouse current occupational status: disabled Feels Safe at Home: Yes Allergies Allergies Allergy/AdvReac Type Severity Reaction Status Date / Time bacitracin Allergy Intermediate RASH/SWELLI Verified 04/15/21 23:37 NG/WELTS bee venom protein (honey bee) Allergy Intermediate HIVES ALL Verified 04/15/21 23:37 OVER, TROUBLE BREATHING bromfenac Allergy Intermediate EYELIDS Verified 04/15/21 23:37 SWELLING, EYE DROPS xibrom dicyclomine Allergy Intermediate RASH ALL Verified 04/15/21 23:37 OVER BODY doxycycline Allergy Intermediate HIVES Verified 04/15/21 23:37 lamotrigine Allergy Intermediate WELTS Verified 04/15/21 23:37 loteprednol Allergy Intermediate FEELS Verified 04/15/21 23:37 INTENSE BURNING IN EYES mupirocin Allergy Intermediate RASH Verified 04/15/21 23:37 neomycin Allergy Intermediate RASH/SWELLI Verified 04/15/21 23:37 NG/WELTS polymyxin B Allergy Intermediate RASH/SWELLI Verified 04/15/21 23:37 NG/WELTS pregabalin Allergy Intermediate SWELLING Verified 04/15/21 23:37 HANDS/FEET, MOUTH SORES sulfamethoxazole Allergy Intermediate RASH Verified 04/15/21 23:37 tetracycline Allergy Intermediate HIVES Verified 04/15/21 23:37 topiramate Allergy Intermediate WELTS Verified 04/15/21 23:37 trimethoprim Allergy Intermediate RASH Verified 04/15/21 23:37 adhesive Allergy Mild SKIN Verified 04/15/21 23:37 IRRITATION, WELTS prochlorperazine AdvReac Severe MUSCLE Verified 04/15/21 23:37 SPASMS, EYES ROLL BACK IN HEAD aspirin AdvReac Intermediate BRUISING Verified 04/15/21 23:37 ALL OVER Bleach (Sodium Hypochlorite) AdvReac Intermediate AFFECTS Verified 04/15/21 23:37 BREATHING ibuprofen AdvReac Intermediate BRUISING Verified 04/15/21 23:37 ALL OVER trimethobenzamide AdvReac Intermediate MUSCLE Verified 04/15/21 23:37 CONTRACTION IVORY SOAP Allergy Unknown HIVES Uncoded 04/15/21 23:37 LAVENDER Allergy Unknown EYES/NOSE Uncoded 04/15/21 23:37 BURNING METALS Allergy Unknown IRRITATION Uncoded 04/15/21 23:37 TO SITE/SWELLING PABA (SUNTAN LOTIONS) Allergy Unknown SKIN RASH Uncoded 04/15/21 23:37 PATCHOULI Allergy Unknown TRIGGERS Uncoded 04/15/21 23:37 BREATHING PROBLEMS PURFUMES Allergy Unknown TROUBLE Uncoded 04/15/21 23:37 BREATHING ROUTE CANAL POSTS Allergy Unknown SEVERE Uncoded 04/15/21 23:37 INFECTION SURGICAL AMPARO Allergy Unknown SWELLING Uncoded 04/15/21 23:37 AT AREA/RASH WOOL Allergy Unknown HIVES Uncoded 04/15/21 23:37 Home Meds Home Medications Medication Instructions Recorded Confirmed famotidine 20 mg tablet 20 mg PO TID PRN #90 tab 12/26/18 04/15/21 pantoprazole 40 mg tablet,delayed 40 mg PO BID #180 tab 12/26/18 04/15/21 release pilocarpine HCl 5 mg tablet 5 mg PO TID tab 12/26/18 04/15/21 timolol maleate 0.5 % once daily 1 drops OP BID 12/26/18 04/15/21 eye drops (Istalol) venetoclax 100 mg tablet 200 mg PO QPM tab 12/26/18 04/15/21 ofloxacin 0.3 % eye drops (Ocuflox) 1 drops OP QID 03/24/19 04/15/21 olopatadine 0.1 % eye drops 1 drops OP BID 03/24/19 04/15/21 (Patanol) prednisolone acetate 1 % eye 1 drops OP TID ml 10/26/19 04/15/21 drops,suspension (Pred Forte) levothyroxine 150 mcg tablet 137 mcg PO DAILYBB tab 12/22/20 04/15/21 (Synthroid) Magic Swizzle 1 dose PO DIRECTED PRN 04/15/21 04/15/21 acyclovir 400 mg tablet 400 mg PO TID 04/15/21 04/15/21 aluminum-mag hydroxide-simethicone 10 ml PO DIRECTED PRN 04/15/21 04/15/21 200 mg-200 mg-20 mg/5 mL oral susp havcwbmhlk-pbbkyajthlwfb-tibwsyzx 1 tab PO TID PRN 04/15/21 04/15/21 50 mg-325 mg-40 mg tablet cetirizine 10 mg tablet (Zyrtec) 10 mg PO DAILY 04/15/21 04/15/21 diclofenac sodium 1 % topical gel 2 g TOPICAL DAILY 04/15/21 04/15/21 diphenhydramine HCl 25 mg capsule 25 mg PO DIRECTED PRN 04/15/21 04/15/21 (Benadryl) furosemide 40 mg tablet 60 mg PO DAILY 04/15/21 04/15/21 guaifenesin 600 mg tablet, 600 mg PO Q12H PRN 04/15/21 04/15/21 extended release 12 hr (Mucinex) ketorolac 10 mg tablet 10 mg PO TID 04/15/21 04/15/21 meclizine 25 mg tablet 25 mg PO QID PRN 04/15/21 04/15/21 metoprolol succinate 100 mg See Rx Instructions .ROUTE .COMPLEX 04/15/21 04/15/21 tablet,extended release 24 hr ondansetron HCl 8 mg tablet 8 mg PO TID PRN 04/15/21 04/15/21 oxymetazoline 0.05 % nasal spray 2 spray INTRANASAL Q12H PRN 04/15/21 04/15/21 (Afrin (oxymetazoline)) phenazopyridine 200 mg tablet 200 mg PO TID PRN 04/15/21 04/15/21 (Pyridium) promethazine 25 mg tablet 25 mg PO Q4H PRN 04/15/21 04/15/21 pseudoephedrine HCl 30 mg tablet 30 mg PO DIRECTED PRN 04/15/21 04/15/21 (Sudafed) sumatriptan succinate 100 mg tablet 100 mg PO DAILY PRN MDD 4 TABS/24 04/15/21 04/15/21 HOURS triamcinolone acetonide 55 mcg 1 spray INTRANASAL HS 04/15/21 04/15/21 nasal spray aerosol amoxicillin 875 mg-potassium 1 tab PO BID 04/16/21 04/16/21 clavulanate 125 mg tablet Previous Rx's Medication Instructions Recorded potassium chloride 10 mEq 20 meq PO BID #120 cap 03/17/20 capsule,extended release cyclobenzaprine 10 mg tablet 10 mg PO TID 30 Days #90 tab 10/19/20 nabumetone 750 mg tablet 750 mg PO BID 30 Days #60 tab 01/25/21 fremanezumab-vfrm 225 mg/1.5 mL 225 mg SUBCUT MONTHLY #1 ml 03/14/21 subcutaneous syringe morphine 30 mg tablet,extended 30 mg PO BID #60 tab 03/14/21 release oxycodone 20 mg tablet 20 mg PO TID PRN #90 tab 03/14/21 zolpidem 10 mg tablet 10 mg PO HS PRN 30 Days #30 tab 03/14/21 metoprolol tartrate 50 mg tablet 50 mg PO TID PRN #90 tab 03/23/21 Results & Data (ED) Vital Signs Vital Signs - 24 hr 04/15/21 23:05 04/15/21 23:11 04/15/21 23:46 Temperature 37.6 C H Temperature Source Oral Pulse Rate 90 85 Pulse Rate [Apical] Pulse Rate from SpO2 Sensor 86 Respiratory Rate 16 Respiratory Effort / Characteristics Non-Labored Non-Labored Respiratory Depth Normal Blood Pressure 124/72 122/64 Blood Pressure [Left Arm] Blood Pressure Mean 89 83 Blood Pressure Mean [Left Arm] Pulse Oximetry 94 100 97 Oxygen Delivery Method Room Air Room Air Room Air Sepsis Recent Fever Within 48 Hours Yes Sepsis New/Unexplained Change in Mental Status N/A Sepsis Action Taken by Nursing No Action Required 04/16/21 00:00 04/16/21 00:15 04/16/21 00:30 Temperature Temperature Source Pulse Rate 83 84 86 Pulse Rate [Apical] Pulse Rate from SpO2 Sensor 84 86 Respiratory Rate 23 17 24 Respiratory Effort / Characteristics Respiratory Depth Blood Pressure 118/62 123/77 127/62 Blood Pressure [Left Arm] Blood Pressure Mean 80 92 83 Blood Pressure Mean [Left Arm] Pulse Oximetry 95 95 94 Oxygen Delivery Method Room Air Room Air Room Air Sepsis Recent Fever Within 48 Hours Sepsis New/Unexplained Change in Mental Status Sepsis Action Taken by Nursing 04/16/21 01:19 04/16/21 01:42 04/16/21 02:00 Temperature Temperature Source Pulse Rate 86 80 Pulse Rate [Apical] 87 Pulse Rate from SpO2 Sensor 86 78 Respiratory Rate 20 20 18 Respiratory Effort / Characteristics Respiratory Depth Normal Blood Pressure 120/81 140/62 Blood Pressure [Left Arm] 106/75 Blood Pressure Mean 94 88 Blood Pressure Mean [Left Arm] 85 Pulse Oximetry 97 100 94 Oxygen Delivery Method Room Air Room Air Room Air Sepsis Recent Fever Within 48 Hours Sepsis New/Unexplained Change in Mental Status Sepsis Action Taken by Nursing 04/16/21 02:15 04/16/21 02:30 04/16/21 02:45 Temperature Temperature Source Pulse Rate 83 84 86 Pulse Rate [Apical] Pulse Rate from SpO2 Sensor 82 82 84 Respiratory Rate 19 22 25 H Respiratory Effort / Characteristics Respiratory Depth Blood Pressure 128/72 130/64 121/75 Blood Pressure [Left Arm] Blood Pressure Mean 90 86 90 Blood Pressure Mean [Left Arm] Pulse Oximetry 96 94 87 L Oxygen Delivery Method Room Air Sepsis Recent Fever Within 48 Hours Sepsis New/Unexplained Change in Mental Status Sepsis Action Taken by Nursing 04/16/21 03:00 04/16/21 03:15 04/16/21 03:30 Temperature Temperature Source Pulse Rate 85 84 83 Pulse Rate [Apical] Pulse Rate from SpO2 Sensor 84 84 Respiratory Rate 18 20 18 Respiratory Effort / Characteristics Respiratory Depth Blood Pressure 137/68 131/68 134/74 Blood Pressure [Left Arm] Blood Pressure Mean 91 89 94 Blood Pressure Mean [Left Arm] Pulse Oximetry 95 87 L Oxygen Delivery Method Sepsis Recent Fever Within 48 Hours Sepsis New/Unexplained Change in Mental Status Sepsis Action Taken by Nursing Laboratory Data Result diagrams: 04/15/21 23:47 04/15/21 23:47 Lab Results 04/15/21 04/15/21 04/15/21 Range/Units 23:47 23:47 23:47 WBC 8.19 (4.8-10.8) K/uL RBC 4.48 (4.2-5.4) M/uL Hgb 9.3 L (12.0-16.0) g/dL Hct 29.7 L (37-47) % MCV 66.3 L (80-100) fL MCH 20.8 L (25-34) pg MCHC 31.3 L (32-36) g/dL RDW Std Deviation 38.9 (36.4-46.3) fL RDW Coeff of Jillian 16.1 H (11.5-14.5) % Plt Count 129 L (130-400) K/uL Immature Gran % (Auto) 0.1 % Neut % (Auto) 75.2 % Lymph % (Auto) 6.6 % Villalba % (Auto) 17.9 % Eos % (Auto) 0.1 % Baso % (Auto) 0.1 % Neut # (Auto) 6.15 (1.4-6.5) K/uL Lymph # (Auto) 0.54 L (1.2-3.4) K/uL Villalba # (Auto) 1.47 H (0.11-0.59) K/uL Eos # (Auto) 0.01 (0-0.5) K/uL Baso # (Auto) 0.01 (0-0.2) K/uL Immature Gran # (Auto) 0.01 (0.00-0.02) K/uL Platelet Estimate Normal (Normal) Hypochromasia Present Microcytosis Present Tear Drop Cells 1+ Ovalocytes 1+ PT 11.5 (9.0-12.0) Seconds INR 1.1 (0.9-1.1) APTT 31.7 H (21.0-31.0) Seconds PTT Ratio 1.2 Sodium 134 L (136-145) mmol/L Potassium 3.1 L (3.5-5.1) mmol/L Chloride 101 (98-107) mmol/L Carbon Dioxide 26 (21-32) mmol/L Anion Gap 7.0 (3-11) BUN 7 (7-18) mg/dl Creatinine 0.68 (0.6-1.2) mg/dl Est Cr Clr Drug Dosing 79.3 ml/min Est GFR ( Amer) 106.4 ml/min Est GFR (Non-Af Amer) 91.8 ml/min BUN/Creatinine Ratio 9.6 L (10-20) Glucose 116 H (70-99) mg/dl Lactate (0.4-2.0) mmol/L Calcium 8.0 L (8.5-10.1) mg/dl Magnesium 2.3 (1.8-2.4) mg/dl Total Bilirubin 0.7 (0.2-1) mg/dl AST 14 L (15-37) U/L ALT 21 (12-78) Alkaline Phosphatase 96 (45-117) U/L Total Protein 6.0 L (6.4-8.2) gm/dl Albumin 3.1 L (3.4-5.0) gm/dl Globulin 2.9 (2.5-4.0) gm/dl Albumin/Globulin Ratio 1.1 (0.9-2) Procalcitonin (0-0.5) ng/ml Urine Color Urine Appearance (Clear) Urine pH (4.5-7.5) Ur Specific [place] (1.000-1.030) Urine Protein (Negative) Urine Glucose (UA) (Negative) Urine Ketones (Negative) Urine Blood (Negative) Urine Nitrite (Negative) Urine Bilirubin (Negative) Urine Urobilinogen (Negative) Ur Leukocyte Esterase (Negative) Fluid Comment CSF Appearance CSF Color Xanthrochromic CSF WBC (0-5) /uL CSF RBC (0-) /uL CSF Cell Count Tube # CSF Chemistry Tube # CSF Glucose (40-70) mg/dl CSF Lactate CSF Total Protein (15-45) mg/dl SARS-CoV-2, RNA, NAAT (NEGATIVE) 04/15/21 04/15/21 04/16/21 Range/Units 23:47 23:47 00:20 WBC (4.8-10.8) K/uL RBC (4.2-5.4) M/uL Hgb (12.0-16.0) g/dL Hct (37-47) % MCV (80-100) fL MCH (25-34) pg MCHC (32-36) g/dL RDW Std Deviation (36.4-46.3) fL RDW Coeff of Jillian (11.5-14.5) % Plt Count (130-400) K/uL Immature Gran % (Auto) % Neut % (Auto) % Lymph % (Auto) % Villalba % (Auto) % Eos % (Auto) % Baso % (Auto) % Neut # (Auto) (1.4-6.5) K/uL Lymph # (Auto) (1.2-3.4) K/uL Villalba # (Auto) (0.11-0.59) K/uL Eos # (Auto) (0-0.5) K/uL Baso # (Auto) (0-0.2) K/uL Immature Gran # (Auto) (0.00-0.02) K/uL Platelet Estimate (Normal) Hypochromasia Microcytosis Tear Drop Cells Ovalocytes PT (9.0-12.0) Seconds INR (0.9-1.1) APTT (21.0-31.0) Seconds PTT Ratio Sodium (136-145) mmol/L Potassium (3.5-5.1) mmol/L Chloride (98-107) mmol/L Carbon Dioxide (21-32) mmol/L Anion Gap (3-11) BUN (7-18) mg/dl Creatinine (0.6-1.2) mg/dl Est Cr Clr Drug Dosing ml/min Est GFR ( Amer) ml/min Est GFR (Non-Af Amer) ml/min BUN/Creatinine Ratio (10-20) Glucose (70-99) mg/dl Lactate 0.8 (0.4-2.0) mmol/L Calcium (8.5-10.1) mg/dl Magnesium (1.8-2.4) mg/dl Total Bilirubin (0.2-1) mg/dl AST (15-37) U/L ALT (12-78) Alkaline Phosphatase (45-117) U/L Total Protein (6.4-8.2) gm/dl Albumin (3.4-5.0) gm/dl Globulin (2.5-4.0) gm/dl Albumin/Globulin Ratio (0.9-2) Procalcitonin 0.22 (0-0.5) ng/ml Urine Color Urine Appearance (Clear) Urine pH (4.5-7.5) Ur Specific [place] (1.000-1.030) Urine Protein (Negative) Urine Glucose (UA) (Negative) Urine Ketones (Negative) Urine Blood (Negative) Urine Nitrite (Negative) Urine Bilirubin (Negative) Urine Urobilinogen (Negative) Ur Leukocyte Esterase (Negative) Fluid Comment CSF Appearance CSF Color Xanthrochromic CSF WBC (0-5) /uL CSF RBC (0-) /uL CSF Cell Count Tube # CSF Chemistry Tube # CSF Glucose (40-70) mg/dl CSF Lactate CSF Total Protein (15-45) mg/dl SARS-CoV-2, RNA, NAAT NEGATIVE (NEGATIVE) 04/16/21 04/16/21 04/16/21 Range/Units 01:13 01:40 01:40 WBC (4.8-10.8) K/uL RBC (4.2-5.4) M/uL Hgb (12.0-16.0) g/dL Hct (37-47) % MCV (80-100) fL MCH (25-34) pg MCHC (32-36) g/dL RDW Std Deviation (36.4-46.3) fL RDW Coeff of Jillian (11.5-14.5) % Plt Count (130-400) K/uL Immature Gran % (Auto) % Neut % (Auto) % Lymph % (Auto) % Villalba % (Auto) % Eos % (Auto) % Baso % (Auto) % Neut # (Auto) (1.4-6.5) K/uL Lymph # (Auto) (1.2-3.4) K/uL Villalba # (Auto) (0.11-0.59) K/uL Eos # (Auto) (0-0.5) K/uL Baso # (Auto) (0-0.2) K/uL Immature Gran # (Auto) (0.00-0.02) K/uL Platelet Estimate (Normal) Hypochromasia Microcytosis Tear Drop Cells Ovalocytes PT (9.0-12.0) Seconds INR (0.9-1.1) APTT (21.0-31.0) Seconds PTT Ratio Sodium (136-145) mmol/L Potassium (3.5-5.1) mmol/L Chloride (98-107) mmol/L Carbon Dioxide (21-32) mmol/L Anion Gap (3-11) BUN (7-18) mg/dl Creatinine (0.6-1.2) mg/dl Est Cr Clr Drug Dosing ml/min Est GFR ( Amer) ml/min Est GFR (Non-Af Amer) ml/min BUN/Creatinine Ratio (10-20) Glucose (70-99) mg/dl Lactate (0.4-2.0) mmol/L Calcium (8.5-10.1) mg/dl Magnesium (1.8-2.4) mg/dl Total Bilirubin (0.2-1) mg/dl AST (15-37) U/L ALT (12-78) Alkaline Phosphatase (45-117) U/L Total Protein (6.4-8.2) gm/dl Albumin (3.4-5.0) gm/dl Globulin (2.5-4.0) gm/dl Albumin/Globulin Ratio (0.9-2) Procalcitonin (0-0.5) ng/ml Urine Color Yellow Urine Appearance Clear (Clear) Urine pH 7.0 (4.5-7.5) Ur Specific [place] 1.015 (1.000-1.030) Urine Protein Negative (Negative) Urine Glucose (UA) Negative (Negative) Urine Ketones Negative (Negative) Urine Blood Negative (Negative) Urine Nitrite Negative (Negative) Urine Bilirubin Negative (Negative) Urine Urobilinogen Negative (Negative) Ur Leukocyte Esterase Negative (Negative) Fluid Comment CSF Appearance Clear CSF Color Colorless Xanthrochromic No xanthochromia CSF WBC 0 (0-5) /uL CSF RBC 0 (0-) /uL CSF Cell Count Tube # 3 CSF Chemistry Tube # 1 Cancelled CSF Glucose 70 Cancelled (40-70) mg/dl CSF Lactate Cancelled CSF Total Protein 65.4 H (15-45) mg/dl SARS-CoV-2, RNA, NAAT (NEGATIVE) Administered Medications Acetaminophen/Butalbital/Caffeine (Butalbital/Acetamin/Caffeine Tab) 1 tab PO TID PRN PRN Reason: TENSION HEADACHES Stop: 05/16/21 05:22 Last Admin: 04/16/21 06:12 Dose: 1 tab Documented by: [id number] Cefepime HCl 2,000 mg/ Syringe 20 mls @ 5 mls/min IV Q8H [facility]; Protocol Stop: 04/26/21 03:29 Last Admin: 04/16/21 04:10 Dose: 5 mls/min Documented by: [id number] Ampicillin Sodium 2,000 mg/ (Sodium Chloride) 100 mls @ 200 mls/hr IV Q4H [facility] Stop: 04/26/21 03:29 Last Infusion: 04/16/21 04:53 Dose: 0 mls/hr Documented by: [id number] Admin: 04/16/21 04:10 Dose: 200 mls/hr Documented by: [id number] Levothyroxine Sodium (Levothyroxine Sodium 137 Mcg Tablet) 137 mcg PO DAILYBB [facility] Stop: 05/16/21 06:29 Last Admin: 04/16/21 06:12 Dose: 137 mcg Documented by: [id number] Oxycodone HCl (Oxycodone Hcl Ir 5 Mg Tab (Immediate Release)) 20 mg PO TID PRN PRN Reason: pain Stop: 04/30/21 03:32 Last Admin: 04/16/21 03:41 Dose: 20 mg Documented by: [id number] Discontinued Medications Cyclobenzaprine HCl (Cyclobenzaprine Hcl 10 Mg Tab) Confirm Administered Dose 10 mg PO .STK-MED ONE Stop: 04/16/21 04:45 Last Admin: 04/16/21 04:45 Dose: 10 mg Documented by: [id number] Hydromorphone HCl (Hydromorphone Inj 0.5 Mg/0.5 Ml Syr) 0.5 mg IV NOW STA Stop: 04/15/21 23:30 Last Admin: 04/15/21 23:38 Dose: 0.5 mg Documented by: [id number] Hydromorphone HCl (Hydromorphone Inj 0.5 Mg/0.5 Ml Syr) 0.5 mg IV NOW STA Stop: 04/16/21 00:23 Last Admin: 04/16/21 00:25 Dose: 0.5 mg Documented by: [id number] Hydromorphone HCl (Hydromorphone Inj 1 Mg/Ml Syringe) 1 mg IV NOW STA Stop: 04/16/21 02:33 Last Admin: 04/16/21 02:35 Dose: 1 mg Documented by: [id number] Vancomycin HCl 2,000 mg/ (Sodium Chloride) 540 mls @ 200 mls/hr IV NOW ONE Stop: 04/16/21 02:19 Last Infusion: 04/16/21 03:33 Dose: 0 mls/hr Documented by: [id number] Admin: 04/16/21 00:04 Dose: 200 mls/hr Documented by: [id number] Lorazepam (Ativan) 1 mg in 2 mls @ 2 mls/min IV NOW STA Stop: 04/16/21 01:46 Last Admin: 04/16/21 01:50 Dose: 2 mls/min Documented by: [id number] Acyclovir Sodium 770 mg/ (Dextrose) 265.4 mls @ 250 mls/hr IV Q8H [facility] Stop: 04/26/21 03:14 Last Infusion: 04/16/21 06:11 Dose: 0 mls/hr Documented by: [id number] Admin: 04/16/21 04:49 Dose: 250 mls/hr Documented by: [id number] Ioversol (Optiray 320 100ml) 94 ml IV ONCE ONE Stop: 04/16/21 01:17 Last Admin: 04/16/21 01:17 Dose: 94 ml Documented by: [id number] Imaging Data Radiologist's Impression: Chest X-Ray 04/15/21 23:29 XR chest 1V portable CLINICAL HISTORY: SEPSIS TECHNIQUE: Single frontal radiograph of the chest was obtained. Comparison: Comparison is made to rib series 12/21/2019 FINDINGS: No lines and tubes are seen. The cardiomediastinal silhouette is normal. Lungs are underinflated but clear. No evidence of pleural effusion or pneumothorax. IMPRESSION: No acute chest disease. ACT 112: Negative or not required by law. Electronically signed by: Marquez Johnson M.D. 04/16/2021 7:[address] 04/15/21 23:34 CT cervical spine w con CLINICAL HISTORY: severe neck pain -eval for abscess TECHNIQUE: Multidetector row helical CT of the cervical spine was performed without administration of intravenous contrast. Coronal and sagittal reformations were obtained. Automated dose lowering techniques and/or adjustment according to patient size were utilized for this exam. Comparison: None available at the time of this dictation. FINDINGS: No acute fractures or subluxations are identified. The alignment is normal. Degenerative changes are seen in the visualized spine. Biapical groundglass opacities are seen. IMPRESSION: Degenerative changes without evidence of acute bony injury. ACT 112: Negative or not required by law. Electronically signed by: Marquez Johnson M.D. 04/16/2021 7:31 AM Discharge Plan Visit Data Chief Complaint: Illness Stated Complaint: NECK PAIN/DIARRHEA ED Provider: Kathy Chin Discharge Problem: Acute neck pain, Hypokalemia, Diarrhea
[2021-04-16 00:08] LABS: INR 1.1 (0.9-1.1); Partial Thromboplastin Ratio 1.2; Partial Thromboplastin Time 31.7 Seconds (21.0-31.0); Prothrombin Time 11.5 Seconds (9.0-12.0)
[2021-04-16 00:14] LABS: Hematocrit (blood only) 29.7 % (37-47); Hemoglobin 9.3 g/dL (12.0-16.0); Mean Corpuscular Hemoglobin 20.8 pg (25-34); Mean Corpuscular Volume 66.3 fL (80-100); RDW Coefficient of Variation 16.1 % (11.5-14.5); RDW Standard Deviation 38.9 fL (36.4-46.3); Red Blood Count 4.48 M/uL (4.2-5.4); White Blood Count 8.19 K/uL (4.8-10.8)
[2021-04-16 00:17] LABS: Albumin Level 3.1 gm/dl (3.4-5.0); BUN Creatinine Ratio 9.6 (10-20); Creatinine Clr Calc Pharmacy 79.3 ml/min; Est GFR (African American) 106.4 ml/min; Est GFR (Non-African American) 91.8 ml/min; Magnesium 2.3 mg/dl (1.8-2.4); Potassium 3.1 mmol/L (3.5-5.1)
[2021-04-16 00:19] LABS: Albumin Globulin Ratio 1.1 (0.9-2); Bilirubin,Total 0.7 mg/dl (0.2-1); Globulin 2.9 gm/dl (2.5-4.0)
[2021-04-16] MEDS ORDERED: HYDROmorphone INJ 0.5 MG/0.5 ML SYR IV STA (00:22)
[2021-04-16 00:33] LABS: Platelet Count 129 K/uL (130-400)
[2021-04-16 00:35] LABS: Basophils # (auto) 0.01 K/uL (0-0.2); Basophils % (auto) 0.1 %; Eosinophils # (auto) 0.01 K/uL (0-0.5); Eosinophils % (auto) 0.1 %; Hypochromasia Present; Immature Granulocytes # (auto) 0.01 K/uL (0.00-0.02); Immature Granulocytes % (auto) 0.1 %; Lymphocytes # (auto) 0.54 K/uL (1.2-3.4); Lymphocytes % (auto) 6.6 %; Microcytosis Present; Monocytes # (auto) 1.47 K/uL (0.11-0.59); Monocytes % (auto) 17.9 %; Neutrophils # (auto) 6.15 K/uL (1.4-6.5); Neutrophils % (auto) 75.2 %; Ovalocytes 1+; Platelet Estimate Normal (Normal); Tear Drop Cells 1+
[2021-04-16] MEDS ORDERED: OPTIRAY 320 100ml IV ONE (01:16)
[2021-04-16 01:37] LABS: Appearance Urine Clear (Clear); Bilirubin Urine Negative (Negative); Blood Urine Negative (Negative); Color Urine Yellow; Glucose Urine UA Negative (Negative); Ketones Urine Negative (Negative); Leukocyte Esterase Urine Negative (Negative); Nitrite Urine Negative (Negative); Protein Urine Negative (Negative); Specific Gravity Urine 1.015 (1.000-1.030); Urobilinogen Urine Negative (Negative)
[2021-04-16] MEDS ORDERED: LORazepam 1 MG/2 ML VIAL IV STA (01:45)
[2021-04-16 02:27] LABS: Total Protein CSF 65.4 mg/dl (15-45)
[2021-04-16] MEDS ORDERED: HYDROmorphone INJ 1 MG/ML SYRINGE IV STA (02:32)
[2021-04-16 02:53] LABS: Appearance CSF Clear; CSF Count Tube # 3; CSF Xanthrochromic No xanthochromia; Color CSF Colorless; White Blood Cell CSF (A) 0 /uL (0-5)
[2021-04-16 02:54] LABS: Red Blood Cell CSF (A) 0 /uL (0-); Red Blood Cell CSF (B) 0 /uL (0-); White Blood Cell CSF (B) 4 /uL (0-5)
[2021-04-16] MEDS ORDERED: ACYCLOVIR SOD 770 MG in DEXTROSE 5% 250 ML IV SCH (03:15)
--- NOTE | 2021-04-16 03:36 | History & Physical Report ---
Date of Service April 16, 2021 Assessment & Plan (1) Neck stiffness: Plan: Diana Pan is a 66y/o F w/ PMH significant for chronic lymphocytic leukemia, small lymphocytic lymphoma, chronic dacryocystitis, Sjogren's syndrome, ankylosing spondylitis, congenital coloboma, beta thalassemia, degenerative disc disease of the cervical and lumbar spine, fibromyalgia/myofascial pain syndrome, supraventricular tachycardia, polyneuropathy, trigeminal neuralgia; who presents for concerns of radicular pain and neck stiffness in the setting of recent eye infection. Neck stiffness: -Uncertain etiology of current neck stiffness in the setting of chronic cervical degenerative disc disease -In the setting of immunosuppressed patient (on Venclexta) concern for meningitis viral versus bacterial -Lumbar puncture performed in ED initial results unimpressive for bacterial meningitis -CT head demonstrating no acute intracranial hemorrhage, extra axial fluid collection, or mass-effect -CT C-spine demonstrating no acute fracture or malalignment of cervical spine with notable multilevel degenerative changes of C-spine -CSF cultures pending -Blood cultures pending -Initiate empiric bacterial coverage for meningitis including vancomycin, ampicillin, cefepime until cultures returned as negative -Continue acyclovir at meningitic dosing Chronic dacryocystitis: -CT face demonstrating 11 mm well-defined cystic thin-walled left-sided medial canthal mass which are representing a cystocele, with visualization of small amount of air in right nasolacrimal duct -Recent cultures from 04/03 demonstrating MRSA within nasolacrimal sac cultures per patient records -Continue vancomycin and meningitic dosing as above -Discontinue amoxicillin/Augmentin previously being utilized as outpatient Chronic lymphocytic leukemia and small lymphocytic lymphoma: -Continue Venclexta daily -Hold oral acyclovir while on meningitic dosing as above Chronic myofascial pain: -Patient at home on numerous pain control medications including Flexeril, Toradol, nabumetone, p.o. morphine, p.o. oxycodone -We will try to limit opiate withdrawal from complications/addition to above symptoms -Dilaudid not helpful in ER -Patient with noted allergy to Lyrica Migraine headaches: -Fioricet and sumatriptan as needed History of SVT: -Metoprolol [id number] mg every morning, 100 mg every afternoon with Toprol tartrate 50 mg 3 times daily as needed Peripheral edema: -Lasix 60 mg daily Diet: Clear liquids (per patient preference) advance diet as tolerated CODE STATUS: Full code DVT prophylaxis: Lovenox (2) Chronic musculoskeletal pain: (3) Hypothyroidism: (4) Lumbar radiculopathy: (5) Migraine headache: (6) Myofascial pain syndrome: (7) Cervical radiculopathy: (8) Cervical somatic dysfunction: (9) Ankylosing spondylitis: (10) Sjoegren syndrome: (11) CLL (chronic lymphocytic leukemia): (12) History of PSVT (paroxysmal supraventricular tachycardia): (13) Cancer related pain: History of Present Illness Primary Care Provider: NO PCP Diana Pan is a 66y/o F w/ PMH significant for chronic lymphocytic leukemia, small lymphocytic lymphoma, chronic dacryocystitis, Sjogren's syndrome, ankylosing spondylitis, congenital coloboma, beta thalassemia, degenerative joint disease of the cervical lumbar spine, fibromyalgia/myofascial pain syndrome, supraventricular tachycardia, polyneuropathy, trigeminal neuralgia; who presents for concerns of radicular pain and neck stiffness in the setting of recent eye infection. Recently had cultures of right lacrimal duct that demonstrated MRSA, and over the last 2 weeks has been on antibiotic treatments for this chronic dacryocystitis. Over the last day or 2 she noticed that she is having intense loose stools/diarrhea persistently throughout the day, and then this morning noted neck stiffness and pain with the development of a fever to 101.8. As result of this called her oncologist in [place] who instructed her to present to the closest ER. Continues to have intermittent shooting pains of her neck with inability to move and/or bend her neck. Feels the shooting pains from the back of her head down her spine. Has not noticed any ability to move or changes in strength of upper or lower extremities as compared to baseline. Regularly does have difficulty with pain however these pains are significantly different than anything she has experienced before. Given recent ocular infection concerns, with development of neck stiffness concern in ED for meningitis and patient had lumbar puncture prior to initiation of antibiotics for appropriate specimen collection. Intermittently in ED patient with increased sedation, but frequently broken by suddenly being awoken by shooting pain. Allergies Allergy/AdvReac Type Severity Reaction Status Date / Time bacitracin Allergy Intermediate RASH/SWELLI Verified 04/15/21 23:37 NG/WELTS bee venom protein (honey bee) Allergy Intermediate HIVES ALL Verified 04/15/21 23:37 OVER, TROUBLE BREATHING bromfenac Allergy Intermediate EYELIDS Verified 04/15/21 23:37 SWELLING, EYE DROPS xibrom dicyclomine Allergy Intermediate RASH ALL Verified 04/15/21 23:37 OVER BODY doxycycline Allergy Intermediate HIVES Verified 04/15/21 23:37 lamotrigine Allergy Intermediate WELTS Verified 04/15/21 23:37 loteprednol Allergy Intermediate FEELS Verified 04/15/21 23:37 INTENSE BURNING IN EYES mupirocin Allergy Intermediate RASH Verified 04/15/21 23:37 neomycin Allergy Intermediate RASH/SWELLI Verified 04/15/21 23:37 NG/WELTS polymyxin B Allergy Intermediate RASH/SWELLI Verified 04/15/21 23:37 NG/WELTS pregabalin Allergy Intermediate SWELLING Verified 04/15/21 23:37 HANDS/FEET, MOUTH SORES sulfamethoxazole Allergy Intermediate RASH Verified 04/15/21 23:37 tetracycline Allergy Intermediate HIVES Verified 04/15/21 23:37 topiramate Allergy Intermediate WELTS Verified 04/15/21 23:37 trimethoprim Allergy Intermediate RASH Verified 04/15/21 23:37 adhesive Allergy Mild SKIN Verified 04/15/21 23:37 IRRITATION, WELTS prochlorperazine AdvReac Severe MUSCLE Verified 04/15/21 23:37 SPASMS, EYES ROLL BACK IN HEAD aspirin AdvReac Intermediate BRUISING Verified 04/15/21 23:37 ALL OVER Bleach (Sodium Hypochlorite) AdvReac Intermediate AFFECTS Verified 04/15/21 23:37 BREATHING ibuprofen AdvReac Intermediate BRUISING Verified 04/15/21 23:37 ALL OVER trimethobenzamide AdvReac Intermediate MUSCLE Verified 04/15/21 23:37 CONTRACTION IVORY SOAP Allergy Unknown HIVES Uncoded 04/15/21 23:37 LAVENDER Allergy Unknown EYES/NOSE Uncoded 04/15/21 23:37 BURNING METALS Allergy Unknown IRRITATION Uncoded 04/15/21 23:37 TO SITE/SWELLING PABA (SUNTAN LOTIONS) Allergy Unknown SKIN RASH Uncoded 04/15/21 23:37 PATCHOULI Allergy Unknown TRIGGERS Uncoded 04/15/21 23:37 BREATHING PROBLEMS PURFUMES Allergy Unknown TROUBLE Uncoded 04/15/21 23:37 BREATHING ROUTE CANAL POSTS Allergy Unknown SEVERE Uncoded 04/15/21 23:37 INFECTION SURGICAL AMPARO Allergy Unknown SWELLING Uncoded 04/15/21 23:37 AT AREA/RASH WOOL Allergy Unknown HIVES Uncoded 04/15/21 23:37 Home Medications Medication Instructions Recorded Confirmed Type famotidine 20 mg tablet 20 mg PO TID PRN #90 tab 12/26/18 04/15/21 History pantoprazole 40 mg tablet,delayed 40 mg PO BID #180 tab 12/26/18 04/15/21 History release pilocarpine HCl 5 mg tablet 5 mg PO TID tab 12/26/18 04/15/21 History timolol maleate 0.5 % once daily 1 drops OP BID 12/26/18 04/15/21 History eye drops (Istalol) venetoclax 100 mg tablet 200 mg PO QPM tab 12/26/18 04/15/21 History ofloxacin 0.3 % eye drops (Ocuflox) 1 drops OP QID 03/24/19 04/15/21 History olopatadine 0.1 % eye drops 1 drops OP BID 03/24/19 04/15/21 History (Patanol) prednisolone acetate 1 % eye 1 drops OP TID ml 10/26/19 04/15/21 History drops,suspension (Pred Forte) potassium chloride 10 mEq 20 meq PO BID #120 cap 03/17/20 04/15/21 Rx capsule,extended release cyclobenzaprine 10 mg tablet 10 mg PO TID 30 Days #90 tab 10/19/20 04/15/21 Rx levothyroxine 150 mcg tablet 137 mcg PO DAILYBB tab 12/22/20 04/15/21 History (Synthroid) nabumetone 750 mg tablet 750 mg PO BID 30 Days #60 tab 01/25/21 04/15/21 Rx fremanezumab-vfrm 225 mg/1.5 mL 225 mg SUBCUT MONTHLY #1 ml 03/14/21 04/15/21 Rx subcutaneous syringe morphine 30 mg tablet,extended 30 mg PO BID #60 tab 03/14/21 04/15/21 Rx release oxycodone 20 mg tablet 20 mg PO TID PRN #90 tab 03/14/21 04/15/21 Rx zolpidem 10 mg tablet 10 mg PO HS PRN 30 Days #30 tab 03/14/21 04/15/21 Rx metoprolol tartrate 50 mg tablet 50 mg PO TID PRN #90 tab 03/23/21 04/15/21 Rx Magic Swizzle 1 dose PO DIRECTED PRN 04/15/21 04/15/21 History acyclovir 400 mg tablet 400 mg PO TID 04/15/21 04/15/21 History aluminum-mag hydroxide-simethicone 10 ml PO DIRECTED PRN 04/15/21 04/15/21 History 200 mg-200 mg-20 mg/5 mL oral susp irzxbkmxod-upkifmemwbxsd-ttnrmwbo 1 tab PO TID PRN 04/15/21 04/15/21 History 50 mg-325 mg-40 mg tablet cetirizine 10 mg tablet (Zyrtec) 10 mg PO DAILY 04/15/21 04/15/21 History diclofenac sodium 1 % topical gel 2 g TOPICAL DAILY 04/15/21 04/15/21 History diphenhydramine HCl 25 mg capsule 25 mg PO DIRECTED PRN 04/15/21 04/15/21 History (Benadryl) furosemide 40 mg tablet 60 mg PO DAILY 04/15/21 04/15/21 History guaifenesin 600 mg tablet, 600 mg PO Q12H PRN 04/15/21 04/15/21 History extended release 12 hr (Mucinex) ketorolac 10 mg tablet 10 mg PO TID 04/15/21 04/15/21 History meclizine 25 mg tablet 25 mg PO QID PRN 04/15/21 04/15/21 History metoprolol succinate 100 mg See Rx Instructions .ROUTE .COMPLEX 04/15/21 04/15/21 History tablet,extended release 24 hr ondansetron HCl 8 mg tablet 8 mg PO TID PRN 04/15/21 04/15/21 History oxymetazoline 0.05 % nasal spray 2 spray INTRANASAL Q12H PRN 04/15/21 04/15/21 History (Afrin (oxymetazoline)) phenazopyridine 200 mg tablet 200 mg PO TID PRN 04/15/21 04/15/21 History (Pyridium) promethazine 25 mg tablet 25 mg PO Q4H PRN 04/15/21 04/15/21 History pseudoephedrine HCl 30 mg tablet 30 mg PO DIRECTED PRN 04/15/21 04/15/21 History (Sudafed) sumatriptan succinate 100 mg tablet 100 mg PO DAILY PRN MDD 4 TABS/24 04/15/21 0 04/15/21 History HOURS triamcinolone acetonide 55 mcg 1 spray INTRANASAL HS 04/15/21 04/15/21 History nasal spray aerosol amoxicillin 875 mg-potassium 1 tab PO BID 04/16/21 04/16/21 History clavulanate 125 mg tablet Past Med/Surg History Medical History (Updated 04/16/21 @ 04:28 by Tom Cunningham MD) Ankylosing spondylitis Bacteremia due to Gram-positive bacteria (2013) CLL (chronic lymphocytic leukemia) Ganglion cyst of both hands History of thyroid cancer Left knee DJD Sjoegren syndrome Thalassemia syndrome Trigger finger of both hands Venous insufficiency (chronic) (peripheral) Surgical History H/O colonoscopy (2010) History of common bile duct surgery History of dilatation and curettage History of throat surgery (2009) Thoat mass excised (Dr. Mercedes) History of thyroidectomy History of tonsillectomy and adenoidectomy Hx of cholecystectomy S/P cataract extraction S/P AVERY-BSO S/P tubal ligation Social History Smoking Status: Never smoker Hx Alcohol Use: No Hx Substance Use: No Preferred Language: Kiswahili Visual Impairment: No Limitations Hearing Ability: Normal Beliefs That Will Affect Care: None marital status: Current Living Situation: Spouse current occupational status: disabled Feels Safe at Home: Yes Review of Systems Review of Systems: All systems reviewed & are unremarkable except as noted in HPI & below Physical Exam Constitutional: well developed, + disheveled and cooperative; + uncomfortable Respiratory: normal respiratory effort; no respiratory distress, no labored breathing, no retractions and does not use accessory muscles Cardiovascular: Rate/Rhythm: regular rate and regular rhythm Extremities: + pedal edema Gastrointestinal (Abdomen): Inspection/Auscultation: abdomen not distended Percussion/Palpation: abdomen soft; abdomen nontender and no guarding Musculoskeletal: Head/Neck/Chest: + limited ROM of neck and neck supple Spine: + pain with cervical ROM and + cervical spasm Extremities: strength 5/5 throughout Neurologic: moves all extremities and awake Speech / Cognition: normal speech, no expressive aphasia, no receptive aphasia and normal cognition Motor/Sensory: no tremor and normal movement Psychiatric: Orientation: alert and oriented x 3 Results & Data Results & Data ([facility]) Vital Signs (Past 12 Hours) Vital Signs Temp Pulse Pulse Resp BP BP Pulse Ox 04/16/21 02:30 84 22 130/64 94 04/16/21 02:15 83 19 128/72 96 04/16/21 02:00 80 18 140/62 94 04/16/21 01:42 86 20 120/81 100 04/16/21 01:19 87 20 106/75 97 04/16/21 00:30 86 24 127/62 94 04/16/21 00:15 84 17 123/77 95 04/16/21 00:00 83 23 118/62 95 04/15/21 23:46 85 16 122/64 97 04/15/21 23:11 100 04/15/21 23:05 37.6 C H 90 124/72 94 Laboratory Results 04/16/21 04/16/21 04/16/21 Range/Units 01:40 01:40 01:40 WBC (4.8-10.8) K/uL RBC (4.2-5.4) M/uL Hgb (12.0-16.0) g/dL Hct (37-47) % MCV (80-100) fL MCH (25-34) pg MCHC (32-36) g/dL RDW Std Deviation (36.4-46.3) fL RDW Coeff of Jillian (11.5-14.5) % Plt Count (130-400) K/uL Immature Gran % (Auto) % Neut % (Auto) % Lymph % (Auto) % Cobb % (Auto) % Eos % (Auto) % Baso % (Auto) % Neut # (Auto) (1.4-6.5) K/uL Lymph # (Auto) (1.2-3.4) K/uL Cobb # (Auto) (0.11-0.59) K/uL Eos # (Auto) (0-0.5) K/uL Baso # (Auto) (0-0.2) K/uL Immature Gran # (Auto) (0.00-0.02) K/uL Platelet Estimate (Normal) Hypochromasia Microcytosis Tear Drop Cells Ovalocytes PT (9.0-12.0) Seconds INR (0.9-1.1) APTT (21.0-31.0) Seconds PTT Ratio Sodium (136-145) mmol/L Potassium (3.5-5.1) mmol/L Chloride (98-107) mmol/L Carbon Dioxide (21-32) mmol/L Anion Gap (3-11) BUN (7-18) mg/dl Creatinine (0.6-1.2) mg/dl Est Cr Clr Drug Dosing ml/min Est GFR ( Amer) ml/min Est GFR (Non-Af Amer) ml/min BUN/Creatinine Ratio (10-20) Glucose (70-99) mg/dl Lactate (0.4-2.0) mmol/L Calcium (8.5-10.1) mg/dl Magnesium (1.8-2.4) mg/dl Total Bilirubin (0.2-1) mg/dl AST (15-37) U/L ALT (12-78) Alkaline Phosphatase (45-117) U/L Total Protein (6.4-8.2) gm/dl Albumin (3.4-5.0) gm/dl Globulin (2.5-4.0) gm/dl Albumin/Globulin Ratio (0.9-2) Procalcitonin (0-0.5) ng/ml Urine Color Urine Appearance (Clear) Urine pH (4.5-7.5) Ur Specific [place] (1.000-1.030) Urine Protein (Negative) Urine Glucose (UA) (Negative) Urine Ketones (Negative) Urine Blood (Negative) Urine Nitrite (Negative) Urine Bilirubin (Negative) Urine Urobilinogen (Negative) Ur Leukocyte Esterase (Negative) Fld Lyme DNA (PCR) Pending Fluid Comment CSF Appearance Clear CSF Color Colorless Xanthrochromic No xanthochromia CSF WBC 0 (0-5) /uL CSF RBC 0 (0-) /uL CSF Cell Count Tube # 3 CSF Chemistry Tube # Cancelled 1 CSF Glucose Cancelled 70 (40-70) mg/dl CSF Lactate Cancelled CSF Total Protein 65.4 H (15-45) mg/dl CSF VDRL Pending Lyme Specimen Source Pending SARS-CoV-2, RNA, NAAT (NEGATIVE) 04/16/21 04/16/21 04/15/21 Range/Units 01:13 00:20 23:47 WBC (4.8-10.8) K/uL RBC (4.2-5.4) M/uL Hgb (12.0-16.0) g/dL Hct (37-47) % MCV (80-100) fL MCH (25-34) pg MCHC (32-36) g/dL RDW Std Deviation (36.4-46.3) fL RDW Coeff of Jillian (11.5-14.5) % Plt Count (130-400) K/uL Immature Gran % (Auto) % Neut % (Auto) % Lymph % (Auto) % Cobb % (Auto) % Eos % (Auto) % Baso % (Auto) % Neut # (Auto) (1.4-6.5) K/uL Lymph # (Auto) (1.2-3.4) K/uL Cobb # (Auto) (0.11-0.59) K/uL Eos # (Auto) (0-0.5) K/uL Baso # (Auto) (0-0.2) K/uL Immature Gran # (Auto) (0.00-0.02) K/uL Platelet Estimate (Normal) Hypochromasia Microcytosis Tear Drop Cells Ovalocytes PT (9.0-12.0) Seconds INR (0.9-1.1) APTT (21.0-31.0) Seconds PTT Ratio Sodium (136-145) mmol/L Potassium (3.5-5.1) mmol/L Chloride (98-107) mmol/L Carbon Dioxide (21-32) mmol/L Anion Gap (3-11) BUN (7-18) mg/dl Creatinine (0.6-1.2) mg/dl Est Cr Clr Drug Dosing ml/min Est GFR ( Amer) ml/min Est GFR (Non-Af Amer) ml/min BUN/Creatinine Ratio (10-20) Glucose (70-99) mg/dl Lactate (0.4-2.0) mmol/L Calcium (8.5-10.1) mg/dl Magnesium (1.8-2.4) mg/dl Total Bilirubin (0.2-1) mg/dl AST (15-37) U/L ALT (12-78) Alkaline Phosphatase (45-117) U/L Total Protein (6.4-8.2) gm/dl Albumin (3.4-5.0) gm/dl Globulin (2.5-4.0) gm/dl Albumin/Globulin Ratio (0.9-2) Procalcitonin 0.22 (0-0.5) ng/ml Urine Color Yellow Urine Appearance Clear (Clear) Urine pH 7.0 (4.5-7.5) Ur Specific [place] 1.015 (1.000-1.030) Urine Protein Negative (Negative) Urine Glucose (UA) Negative (Negative) Urine Ketones Negative (Negative) Urine Blood Negative (Negative) Urine Nitrite Negative (Negative) Urine Bilirubin Negative (Negative) Urine Urobilinogen Negative (Negative) Ur Leukocyte Esterase Negative (Negative) Fld Lyme DNA (PCR) Fluid Comment CSF Appearance CSF Color Xanthrochromic CSF WBC (0-5) /uL CSF RBC (0-) /uL CSF Cell Count Tube # CSF Chemistry Tube # CSF Glucose (40-70) mg/dl CSF Lactate CSF Total Protein (15-45) mg/dl CSF VDRL Lyme Specimen Source SARS-CoV-2, RNA, NAAT NEGATIVE (NEGATIVE) 04/15/21 04/15/21 04/15/21 Range/Units 23:47 23:47 23:47 WBC (4.8-10.8) K/uL RBC (4.2-5.4) M/uL Hgb (12.0-16.0) g/dL Hct (37-47) % MCV (80-100) fL MCH (25-34) pg MCHC (32-36) g/dL RDW Std Deviation (36.4-46.3) fL RDW Coeff of Jillian (11.5-14.5) % Plt Count (130-400) K/uL Immature Gran % (Auto) % Neut % (Auto) % Lymph % (Auto) % Cobb % (Auto) % Eos % (Auto) % Baso % (Auto) % Neut # (Auto) (1.4-6.5) K/uL Lymph # (Auto) (1.2-3.4) K/uL Cobb # (Auto) (0.11-0.59) K/uL Eos # (Auto) (0-0.5) K/uL Baso # (Auto) (0-0.2) K/uL Immature Gran # (Auto) (0.00-0.02) K/uL Platelet Estimate (Normal) Hypochromasia Microcytosis Tear Drop Cells Ovalocytes PT 11.5 (9.0-12.0) Seconds INR 1.1 (0.9-1.1) APTT 31.7 H (21.0-31.0) Seconds PTT Ratio 1.2 Sodium 134 L (136-145) mmol/L Potassium 3.1 L (3.5-5.1) mmol/L Chloride 101 (98-107) mmol/L Carbon Dioxide 26 (21-32) mmol/L Anion Gap 7.0 (3-11) BUN 7 (7-18) mg/dl Creatinine 0.68 (0.6-1.2) mg/dl Est Cr Clr Drug Dosing 79.3 ml/min Est GFR ( Amer) 106.4 ml/min Est GFR (Non-Af Amer) 91.8 ml/min BUN/Creatinine Ratio 9.6 L (10-20) Glucose 116 H (70-99) mg/dl Lactate 0.8 (0.4-2.0) mmol/L Calcium 8.0 L (8.5-10.1) mg/dl Magnesium 2.3 (1.8-2.4) mg/dl Total Bilirubin 0.7 (0.2-1) mg/dl AST 14 L (15-37) U/L ALT 21 (12-78) Alkaline Phosphatase 96 (45-117) U/L Total Protein 6.0 L (6.4-8.2) gm/dl Albumin 3.1 L (3.4-5.0) gm/dl Globulin 2.9 (2.5-4.0) gm/dl Albumin/Globulin Ratio 1.1 (0.9-2) Procalcitonin (0-0.5) ng/ml Urine Color Urine Appearance (Clear) Urine pH (4.5-7.5) Ur Specific [place] (1.000-1.030) Urine Protein (Negative) Urine Glucose (UA) (Negative) Urine Ketones (Negative) Urine Blood (Negative) Urine Nitrite (Negative) Urine Bilirubin (Negative) Urine Urobilinogen (Negative) Ur Leukocyte Esterase (Negative) Fld Lyme DNA (PCR) Fluid Comment CSF Appearance CSF Color Xanthrochromic CSF WBC (0-5) /uL CSF RBC (0-) /uL CSF Cell Count Tube # CSF Chemistry Tube # CSF Glucose (40-70) mg/dl CSF Lactate CSF Total Protein (15-45) mg/dl CSF VDRL Lyme Specimen Source SARS-CoV-2, RNA, NAAT (NEGATIVE) 04/15/21 Range/Units 23:47 WBC 8.19 (4.8-10.8) K/uL RBC 4.48 (4.2-5.4) M/uL Hgb 9.3 L (12.0-16.0) g/dL Hct 29.7 L (37-47) % MCV 66.3 L (80-100) fL MCH 20.8 L (25-34) pg MCHC 31.3 L (32-36) g/dL RDW Std Deviation 38.9 (36.4-46.3) fL RDW Coeff of Jillian 16.1 H (11.5-14.5) % Plt Count 129 L (130-400) K/uL Immature Gran % (Auto) 0.1 % Neut % (Auto) 75.2 % Lymph % (Auto) 6.6 % Cobb % (Auto) 17.9 % Eos % (Auto) 0.1 % Baso % (Auto) 0.1 % Neut # (Auto) 6.15 (1.4-6.5) K/uL Lymph # (Auto) 0.54 L (1.2-3.4) K/uL Cobb # (Auto) 1.47 H (0.11-0.59) K/uL Eos # (Auto) 0.01 (0-0.5) K/uL Baso # (Auto) 0.01 (0-0.2) K/uL Immature Gran # (Auto) 0.01 (0.00-0.02) K/uL Platelet Estimate Normal (Normal) Hypochromasia Present Microcytosis Present Tear Drop Cells 1+ Ovalocytes 1+ PT (9.0-12.0) Seconds INR (0.9-1.1) APTT (21.0-31.0) Seconds PTT Ratio Sodium (136-145) mmol/L Potassium (3.5-5.1) mmol/L Chloride (98-107) mmol/L Carbon Dioxide (21-32) mmol/L Anion Gap (3-11) BUN (7-18) mg/dl Creatinine (0.6-1.2) mg/dl Est Cr Clr Drug Dosing ml/min Est GFR ( Amer) ml/min Est GFR (Non-Af Amer) ml/min BUN/Creatinine Ratio (10-20) Glucose (70-99) mg/dl Lactate (0.4-2.0) mmol/L Calcium (8.5-10.1) mg/dl Magnesium (1.8-2.4) mg/dl Total Bilirubin (0.2-1) mg/dl AST (15-37) U/L ALT (12-78) Alkaline Phosphatase (45-117) U/L Total Protein (6.4-8.2) gm/dl Albumin (3.4-5.0) gm/dl Globulin (2.5-4.0) gm/dl Albumin/Globulin Ratio (0.9-2) Procalcitonin (0-0.5) ng/ml Urine Color Urine Appearance (Clear) Urine pH (4.5-7.5) Ur Specific [place] (1.000-1.030) Urine Protein (Negative) Urine Glucose (UA) (Negative) Urine Ketones (Negative) Urine Blood (Negative) Urine Nitrite (Negative) Urine Bilirubin (Negative) Urine Urobilinogen (Negative) Ur Leukocyte Esterase (Negative) Fld Lyme DNA (PCR) Fluid Comment CSF Appearance CSF Color Xanthrochromic CSF WBC (0-5) /uL CSF RBC (0-) /uL CSF Cell Count Tube # CSF Chemistry Tube # CSF Glucose (40-70) mg/dl CSF Lactate CSF Total Protein (15-45) mg/dl CSF VDRL Lyme Specimen Source SARS-CoV-2, RNA, NAAT (NEGATIVE) Diagnostic Findings CT HEAD: Comparison: MRI brain 11/08/2020 No acute intracranial hemorrhage, extra axial fluid collection or mass-effect. No CT evidence of acute territorial infarct. Radiologist: Tara Nation M.D. CT C SPINE: Comparison: MRI C-spine 10/11/19 No acute fracture or malalignment of the cervical spine. Multilevel degenerative changes of the cervical spine. Radiologist: Tara Nation M.D. CT FACIAL: 11 mm well-defined cystic thin-walled left sided medial canthal mass may represent a dacryocystocele. Small abscess considered less likely but not excluded. Small amount of air is visualized adjacent to the distal right nasolacrimal duct with mild associated soft tissue swelling of the right medial canthus, which could be seen in the clinical setting of dacryocystitis. No organized abscess is visualized. Bilateral lens implants. Radiologist: Tara Nation M.D. Medications Administered Home Medication List Medication Instructions Recorded famotidine 20 mg tablet 20 mg PO TID PRN #90 tab 12/26/18 pantoprazole 40 mg tablet,delayed 40 mg PO BID #180 tab 12/26/18 release pilocarpine HCl 5 mg tablet 5 mg PO TID tab 12/26/18 timolol maleate 0.5 % once daily 1 drops OP BID 12/26/18 eye drops (Istalol) venetoclax 100 mg tablet 200 mg PO QPM tab 12/26/18 ofloxacin 0.3 % eye drops (Ocuflox) 1 drops OP QID 03/24/19 olopatadine 0.1 % eye drops 1 drops OP BID 03/24/19 (Patanol) prednisolone acetate 1 % eye 1 drops OP TID ml 10/26/19 drops,suspension (Pred Forte) potassium chloride 10 mEq 20 meq PO BID #120 cap 03/17/20 capsule,extended release cyclobenzaprine 10 mg tablet 10 mg PO TID 30 Days #90 tab 10/19/20 levothyroxine 150 mcg tablet 137 mcg PO DAILYBB tab 12/22/20 (Synthroid) nabumetone 750 mg tablet 750 mg PO BID 30 Days #60 tab 01/25/21 fremanezumab-vfrm 225 mg/1.5 mL 225 mg SUBCUT MONTHLY #1 ml 03/14/21 subcutaneous syringe morphine 30 mg tablet,extended 30 mg PO BID #60 tab 03/14/21 release oxycodone 20 mg tablet 20 mg PO TID PRN #90 tab 03/14/21 zolpidem 10 mg tablet 10 mg PO HS PRN 30 Days #30 tab 03/14/21 metoprolol tartrate 50 mg tablet 50 mg PO TID PRN #90 tab 03/23/21 Magic Swizzle 1 dose PO DIRECTED PRN 04/15/21 acyclovir 400 mg tablet 400 mg PO TID 04/15/21 aluminum-mag hydroxide-simethicone 10 ml PO DIRECTED PRN 04/15/21 200 mg-200 mg-20 mg/5 mL oral susp hlxhdypvpr-neuzipkbhopfr-ebzjrsdq 1 tab PO TID PRN 04/15/21 50 mg-325 mg-40 mg tablet cetirizine 10 mg tablet (Zyrtec) 10 mg PO DAILY 04/15/21 diclofenac sodium 1 % topical gel 2 g TOPICAL DAILY 04/15/21 diphenhydramine HCl 25 mg capsule 25 mg PO DIRECTED PRN 04/15/21 (Benadryl) furosemide 40 mg tablet 60 mg PO DAILY 04/15/21 guaifenesin 600 mg tablet, 600 mg PO Q12H PRN 04/15/21 extended release 12 hr (Mucinex) ketorolac 10 mg tablet 10 mg PO TID 04/15/21 meclizine 25 mg tablet 25 mg PO QID PRN 04/15/21 metoprolol succinate 100 mg See Rx Instructions .ROUTE .COMPLEX 04/15/21 tablet,extended release 24 hr ondansetron HCl 8 mg tablet 8 mg PO TID PRN 04/15/21 oxymetazoline 0.05 % nasal spray 2 spray INTRANASAL Q12H PRN 04/15/21 (Afrin (oxymetazoline)) phenazopyridine 200 mg tablet 200 mg PO TID PRN 04/15/21 (Pyridium) promethazine 25 mg tablet 25 mg PO Q4H PRN 04/15/21 pseudoephedrine HCl 30 mg tablet 30 mg PO DIRECTED PRN 04/15/21 (Sudafed) sumatriptan succinate 100 mg tablet 100 mg PO DAILY PRN MDD 4 TABS/24 04/15/21 HOURS triamcinolone acetonide 55 mcg 1 spray INTRANASAL HS 04/15/21 nasal spray aerosol amoxicillin 875 mg-potassium 1 tab PO BID 04/16/21 clavulanate 125 mg tablet Code Status & VTE Plan VTE Prophylaxis Plan VTE Prophylaxis will be ordered: Yes Supervising Physician Co-Signing Physician Notes Attending addendum: I have supervised the medical residents activities, and agree with the H&P unless as otherwise noted. Assessment and Plan: Dacryocystitis/meningitic signs- Follow lumbar puncture studies Follow blood cultures Empiric antibiotics: Vancomycin IV, ampicillin IV, cefepime IV Acyclovir IV as noted CLL/small lymphocytic lymphoma- Continue Venclexta daily Chronic pain syndrome- Pain control as noted Remaining orders and notations as noted Resident Activity Tracking Resident Involvement: Resident Care Provided Care Provided: Adult Hospital Medicine
[2021-04-16] MEDS: oxyCODONE HCL IR 5 MG TAB (IMMEDIATE RELEASE) PO PRN ×3 (03:41→22:47)
[2021-04-16] MEDS: AMPICILLIN 2,000 MG in SODIUM CHLOR 0.9% AD-VAN 100 ML IV SCH ×6 (04:10→22:32)
[2021-04-16] MEDS: CEFEPIME 2,000 MG in SYRINGE 0 ML IV SCH ×2 (04:10→17:55)
[2021-04-16] MEDS ORDERED: CYCLOBENZAPRINE HCL 10 MG TAB PO ONE (04:44)
[2021-04-16] MEDS ORDERED: ACETAMINOPHEN 325 MG TAB PO PRN (05:23)
[2021-04-16] MEDS ORDERED: MAGNESIUM HYDROXIDE SUSP 30 ML UDC PO PRN (05:23)
[2021-04-16] MEDS ORDERED: diphenhydrAMINE Capsule 25 MG CAP PO PRN (05:23)
[2021-04-16] MEDS ORDERED: PROMETHAZINE HCL 25 MG TAB PO PRN (05:23)
[2021-04-16] MEDS ORDERED: PHENAZOPYRIDINE HCL 200 MG TAB PO PRN (05:23)
[2021-04-16] MEDS ORDERED: ONDANSETRON INJ 2 MG/ML 2 ML VIAL IV PRN (05:23)
[2021-04-16] MEDS ORDERED: METOPROLOL TARTRATE 50 MG TAB PO PRN (05:23)
[2021-04-16] MEDS ORDERED: ZOLPIDEM TARTRATE 10 MG TAB PO PRN (05:23)
[2021-04-16] MEDS ORDERED: FAMOTIDINE 20 MG TAB PO PRN (05:23)
[2021-04-16] MEDS ORDERED: SUMAtriptan succinate 100 MG TAB PO PRN (05:23)
[2021-04-16] MEDS ORDERED: ALUMINUM/MAGNESIUM/SIMETH (MAALOX MAX) 30 ML UDC PO PRN (05:31)
--- NOTE | 2021-04-16 06:02 | Billing Data ---
Date of Service April 16, 2021 Coding Level of Care Code 23762 Initial Inpt Care Lvl 3
[2021-04-16] MEDS: BUTALBITAL/ACETAMIN/CAFFEINE TAB PO PRN (06:12)
[2021-04-16] MEDS: LEVOTHYROXINE SODIUM 137 MCG TABLET PO SCH (06:12)
--- NOTE | 2021-04-16 06:15 | Pharmacy Report ---
Pharmacy Abx Initial Consult - Date of Service April 16, 2021 - Pharmacy Dosing Scope Date of Consult: 04/16/21 Consultation requested by: Dr. Cunningham Pharmacy is consulted to initiate Vancomycin IV dosing therapy, order appropriate labs and adjust drug dose/frequency. - Subjective The patient is a 66 year old F admitted on 04/16/21 03:32. - Objective Height: 5 ft 2 in Weight: 77.2 kg Vital Signs (Past 12hrs): Vital Signs Temp Pulse Pulse Resp BP BP Pulse Ox 04/16/21 05:01 88 L 04/16/21 05:00 92 H 18 135/58 L 88 L 04/16/21 04:15 85 15 131/64 95 04/16/21 04:00 84 19 118/64 93 04/16/21 03:30 83 18 134/74 87 L 04/16/21 03:15 84 20 131/68 04/16/21 03:00 85 18 137/68 95 04/16/21 02:45 86 25 H 121/75 87 L 04/16/21 02:30 84 22 130/64 94 04/16/21 02:15 83 19 128/72 96 04/16/21 02:00 80 18 140/62 94 04/16/21 01:42 86 20 120/81 100 04/16/21 01:19 87 20 106/75 97 04/16/21 00:30 86 24 127/62 94 04/16/21 00:15 84 17 123/77 95 04/16/21 00:00 83 23 118/62 95 04/15/21 23:46 85 16 122/64 97 04/15/21 23:11 100 04/15/21 23:05 37.6 C H 90 124/72 94 Lab Results (24hrs): Laboratory Tests (24 Hours) 04/15/21 04/15/21 04/15/21 23:47 23:47 23:47 WBC 8.19 Neut # (Auto) 6.15 Creatinine 0.68 Est Cr Clr Drug Dosing 79.3 Procalcitonin 0.22 Micro Results: 04/16/21 01:40 Gram Stain - Final Cerebral Spinal Fluid CSF Culture - Pending 04/16/21 01:40 Fungal Culture - Pending Cerebral Spinal Fluid 04/15/21 23:33 Aerobic Blood Culture - Pending Blood Anaerobic Blood Culture - Pending 04/15/21 23:47 Aerobic Blood Culture - Pending Blood Anaerobic Blood Culture - Pending - Assessment & Plan Assessment 66 year old F receiving Ampicillin/Cefepime/Acyclovir/Vancomycin for possible meningitis. Plan Vancomycin IV * Estimated PK Parameters: Vd 0.7 L/kg, Kirby 0.07 hr-1, t1/2 ~10 hr * Loading dose: 2000mg (26 mg/kg) * Maintenance dose: 1000mg IV (13 mg/kg) every 12 hours * AUC/ALLA is the preferred PK/PD target for vancomycin * AUC guided dosing is effective and associated with decreased risk of nephrotoxicity compared to traditional trough targets * The above dose is predicted to achieve target AUC/ALLA of 400-600 mg/L.hr and may be associated with a 11 % risk of nephrotoxicity * Will check a trough level in a few days. Pharmacy will continue to follow and will adjust dose/frequency as necessary. Thank you.
[2021-04-16] MEDS ORDERED: MoRPHine SULFATE CR 15 MG TABCR PO ONE (06:58)
--- NOTE | 2021-04-16 07:14 | XRay Report ---
XR chest 1V portable CLINICAL HISTORY: SEPSIS TECHNIQUE: Single frontal radiograph of the chest was obtained. Comparison: Comparison is made to rib series 12/21/2019 FINDINGS: No lines and tubes are seen. The cardiomediastinal silhouette is normal. Lungs are underinflated but clear. No evidence of pleural effusion or pneumothorax. IMPRESSION: No acute chest disease. ACT 112: Negative or not required by law. Electronically signed by: Marquez Johnson M.D. 04/16/2021 7:13 AM
--- NOTE | 2021-04-16 07:32 | CT Scan Report ---
CT cervical spine w con CLINICAL HISTORY: severe neck pain -eval for abscess TECHNIQUE: Multidetector row helical CT of the cervical spine was performed without administration of intravenous contrast. Coronal and sagittal reformations were obtained. Automated dose lowering techn iques and/or adjustment according to patient size were utilized for this exam. Comparison: None available at the time of this dictation. FINDINGS: No acute fractures or subluxations are identified. The alignment is normal. Degenerative changes are seen in the visualized spine. Biapical groundglass opacities are seen. IMPRESSION: Degenerative changes without evidence of acute bony injury. ACT 112: Negative or not required by law. Electronically signed by: Marquez Johnson M.D. 04/16/2021 7:31 AM
--- NOTE | 2021-04-16 07:38 | CT Scan Report ---
CT head/brain wo con CLINICAL HISTORY: head pain/neck pain with dacrocystitis Technique: Contiguous axial CT images of the head were acquired from the base of the skull to the [place] aleksander without intravenous contrast administration. Images were viewed in brain, subdural and bone windo ws. Automated dose lowering techniques and/or adjustment according to patient size were utilized for this exam. Comparison: None available at the time of this dictation. Findings: The ventricles, basal cisterns, and cerebral sulci are normal. There is no acute intracranial hemorrh age or evidence of acute territorial infarction. Neither mass effect, shift of the midline structures , nor abnormal extra-axial fluid collections are shown. Imaged portions of the paranasal sinuses and mastoid air cells are clear. The orbits appear normal. There are no acute fractures of the calvaria or scalp swelling. Impression: No acute intracranial hemorrhage, no evidence of acute territorial infarction or other acute intracra nial disease process. ACT 112: Negative or not required by law. Electronically signed by: Marquez Johnson M.D. 04/16/2021 7:37 AM
--- NOTE | 2021-04-16 07:39 | CT Scan Report ---
CT facial bones w con CLINICAL HISTORY: eval for abscess dacrocystis(R) TECHNIQUE: Multidetector row helical CT of the maxillofacial bones was performed with administration of intravenous contrast, and processed with bone and soft tissue algorithms. Coronal and sagittal ref ormations were obtained. Automated dose lowering techniques and/or adjustment according to patient si ze were utilized for this exam. Comparison: None available at the time of this dictation. FINDINGS: Nasal bones are normal. The mandible is intact. The temporomandibular joints are anatomically aligned . Pterygoid plates are intact. Zygomatic arches are intact. The globes are normal and symmetric, without proptosis, obvious disruption or lens dislocation. Bilat eral lens implants are noted. There is no orbital radiopaque foreign body. The orbital ochoa are inta ct. There is an 11 mm thin-walled left-sided medial canthal mass which may represent a technical cyst ocele. There is a focus of air and surrounding soft tissue stranding on the right medial canthus. Ext raocular muscles are normal and symmetric. Optic nerve sheath complexes are normal in course and randall iber. Imaged portions of the paranasal sinuses and mastoid air cells are clear. IMPRESSION: Left medial canthal mass is favored to represent atelectasis field, although superinfection cannot be excluded. Fat stranding about the right medial canthus represent active cystitis. ACT 112: Negative or not required by law. Electronically signed by: Marquez Johnson M.D. 04/16/2021 7:38 AM
[2021-04-16] MEDS: PILOCARPINE HCL 5 MG TABLET PO SCH ×3 (08:17→20:03)
[2021-04-16] MEDS: METOPROLOL SUCC 50MG EXT REL TAB PO SCH ×2 (08:20→20:02)
[2021-04-16] MEDS: PANTOprazole 40 MG TAB PO SCH ×2 (08:21→20:02)
[2021-04-16] MEDS: FUROSEMIDE 20 MG TAB PO SCH (08:21)
[2021-04-16] MEDS: CETIRIZINE HCL 10 MG TABLET PO SCH (08:22)
[2021-04-16] MEDS: ENOXAPARIN INJ 30 MG/0.3 ML SYR SQ SCH (08:23)
[2021-04-16] MEDS: OFLOXACIN 0.3% 75 DROPS/5 ML BTL OPB SCH ×2 (08:23→14:05)
[2021-04-16] MEDS: DICLOFENAC SOD 1% GEL 100 GM TUBE EXT SCH (08:24)
[2021-04-16] MEDS: ONDANSETRON 8MG OD TAB PO PRN (08:25)
[2021-04-16] MEDS: MoRPHine SULFATE CR 15 MG TABCR PO SCH ×2 (08:45→20:02)
--- NOTE | 2021-04-16 08:49 | Electrocardiogram Report ---
Test Reason : Blood Pressure : / mmHG Vent. Rate : 086 BPM Atrial Rate : 086 BPM P-R Int : 172 ms QRS Dur : 084 ms QT Int : 390 ms P-R-T Axes : 041 000 034 degrees QTc Int : 466 ms Normal sinus rhythm Normal ECG When compared with ECG of 25-NOV-2017 12:43, No significant change was found Confirmed by Jarek Eaton ([id number]) on 04/16/2021 8:48:44 AM Referred By: REFERRED SELF Confirmed By:Jarek Eaton
[2021-04-16] MEDS ORDERED: NON-FORMULARY MEDICATION (Morphine 30 mg tablet extended release) PO SCH (09:00)
[2021-04-16] MEDS ORDERED: MoRPHine SULFATE CR 15 MG TABCR PO SCH ×2 (09:00)
[2021-04-16] MEDS ORDERED: NABUMETONE 500 MG TABLET PO SCH (09:00)
[2021-04-16] MEDS ORDERED: POTASSIUM CHLORIDE CRTAB 20 MEQ TABCR PO SCH ×2 (09:00→21:00)
[2021-04-16] MEDS: MECLIZINE HCL 25 MG TAB PO PRN (09:23)
--- NOTE | 2021-04-16 10:26 | Hospitalist Progress Note ---
Date of Service April 16, 2021 Assessment & Plan (1) Neck stiffness: Plan: Diana Pan is a 66y/o F w/ PMH significant for chronic lymphocytic leukemia, small lymphocytic lymphoma, chronic dacryocystitis, Sjogren's syndrome, ankylosing spondylitis, congenital coloboma, beta thalassemia, degenerative disc disease of the cervical and lumbar spine, fibromyalgia/myofascial pain syndrome, supraventricular tachycardia, polyneuropathy, trigeminal neuralgia; who presents for concerns of radicular pain and neck stiffness in the setting of recent eye infection. Neck stiffness: Meningitis r/o VS MSK Uncertain etiology of current neck stiffness in the setting of chronic cervical degenerative disc disease, In the setting of immunosuppressed patient (on Venclexta) concern for meningitis viral versus bacterial. CT head demonstrating no acute intracranial hemorrhage, extra axial fluid collection, or mass-effect. CT C-spine demonstrating no acute fracture or malalignment of cervical spine with notable multilevel degenerative changes of C-spine -Lumbar puncture performed in ED initial results unimpressive for bacterial meningitis. -CSF cultures pending -Blood cultures pending -Given clinical hx of relative immuno suppression pt was started on empiric bacterial coverage for meningitis including vancomycin, ampicillin, cefepime until cultures returned negative -Continue acyclovir at meningitic dosing -Per conversation with PT on 1/10 am she states after her eye procedure she was not very mobile. Last Friday she drove to [place] to see a doctor and has endorsed significant msk pain since that time. -She thinks her symptoms are 2/2 to this trip -Await cultures. ID consulted. Chronic dacryocystitis: CT face demonstrating 11 mm well-defined cystic thin-walled left-sided medial canthal mass which are representing a cystocele, with visualization of small amount of air in right nasolacrimal duct. Recent cultures from 04/03 demonstrating MRSA within nasolacrimal sac cultures per patient records. Discontinue amoxicillin/Augmentin previously being utilized as outpatient -Continue vancomycin and meningitic dosing as above -Consulted ID appreciate recs Chronic lymphocytic leukemia and small lymphocytic lymphoma: -Hold Venclexta pending culture results Chronic myofascial pain: Patient at home on numerous pain control medications including Flexeril, Toradol, nabumetone, p.o. morphine, p.o. oxycodone. We will try to limit opiate withdrawal from complications/addition to above symptoms -Concerned for hyperalgesia 2/2 to medication regimen -Patient with noted allergy to Lyrica Migraine headaches: -Fioricet and sumatriptan as needed History of SVT: -Metoprolol [id number] mg every morning, 100 mg every afternoon with Toprol tartrate 50 mg 3 times daily as needed Peripheral edema: -Lasix 60 mg daily FENa:Heart healthy Code Status:Full DVT PPX:Lovenox PT/OT:Consulted Case Management:Consulted Dispo:Pending negative CX Williams Montemayor MD PGY 3, FCM This chart was completed utilizing [employer] voice recognition software. Grammatical errors, random word insertions, pronoun errors, and in complete sentences are an occasional consequence of the system. Any questions or concerns about the content, text, or information contained within the body of this dictation should be addressed directly to the physician for clarification. (2) Chronic musculoskeletal pain: (3) Hypothyroidism: (4) Lumbar radiculopathy: (5) Migraine headache: (6) Myofascial pain syndrome: (7) Cervical radiculopathy: (8) Cervical somatic dysfunction: (9) Ankylosing spondylitis: (10) Sjoegren syndrome: (11) CLL (chronic lymphocytic leukemia): (12) History of PSVT (paroxysmal supraventricular tachycardia): (13) Cancer related pain: Admission and Anticipated Discharge Date Admission Date: April 16, 2021 Supervising Physician Co-Signing Physician Notes Resident Physician Supervision Note: I independently interviewed and examined the patient and verified the rubio history and physical, reviewed labs and image studies and agree with resident Dr. Montemayor findings and care plan. Subjective Patient lying in bed this morning in no acute distress. Patient reports that she is tolerating her diet, voiding and stooling. She relate a story similar to that as described in the history and physical with the following exceptions. She notes that after her recent surgery, she has been a number of days laying flat on her back in her bed. On FridayApril 13 the patient attended a doctor's appointment in [place]. She states that the car ride there and back plus the walking around really aggravated her neck. She thinks that her symptoms are largely related to musculoskeletal pain. However she does note that the pain can be intense at times. She denies any chest pressure or chest Physical Exam Physical Exam: General: Lying in bed no acute distress HEENT: Normocephalic atraumatic Neck: Normal to visual inspection Cardiac: Regular rate and rhythm I did not appreciate any significant murmurs rubs or gallops, normal S1, normal S2, negative pedal edema, negative calf tenderness Respiratory: Clear to auscultation bilaterally with symmetrical chest expansion did not appreciate a significant wheezes, rales, rhonchi GI: Soft, nontender, nondistended, bowel sounds present in all 4 quadrants MSK: Moves all extremities. Endorses pain when moving from a lying to a seated position Results & Data Results & Data ([facility]) Vital Signs (Past 12 Hours) Vital Signs Temp Pulse Pulse Resp BP BP Pulse Ox 04/16/21 08:14 36.7 C 92 H 24 123/66 100 04/16/21 05:01 88 L 04/16/21 05:00 92 H 18 135/58 L 88 L 04/16/21 04:15 85 15 131/64 95 04/16/21 04:00 84 19 118/64 93 04/16/21 03:30 83 18 134/74 87 L 04/16/21 03:15 84 20 131/68 04/16/21 03:00 85 18 137/68 95 04/16/21 02:45 86 25 H 121/75 87 L 04/16/21 02:30 84 22 130/64 94 04/16/21 02:15 83 19 128/72 96 04/16/21 02:00 80 18 140/62 94 04/16/21 01:42 86 20 120/81 100 04/16/21 01:19 87 20 106/75 97 04/16/21 00:30 86 24 127/62 94 04/16/21 00:15 84 17 123/77 95 04/16/21 00:00 83 23 118/62 95 04/15/21 23:46 85 16 122/64 97 04/15/21 23:11 100 04/15/21 23:05 37.6 C H 90 124/72 94 Laboratory Results 04/16/21 04/16/21 04/16/21 Range/Units 01:40 01:40 01:40 WBC (4.8-10.8) K/uL RBC (4.2-5.4) M/uL Hgb (12.0-16.0) g/dL Hct (37-47) % MCV (80-100) fL MCH (25-34) pg MCHC (32-36) g/dL RDW Std Deviation (36.4-46.3) fL RDW Coeff of Jillian (11.5-14.5) % Plt Count (130-400) K/uL Immature Gran % (Auto) % Neut % (Auto) % Lymph % (Auto) % Door % (Auto) % Eos % (Auto) % Baso % (Auto) % Neut # (Auto) (1.4-6.5) K/uL Lymph # (Auto) (1.2-3.4) K/uL Door # (Auto) (0.11-0.59) K/uL Eos # (Auto) (0-0.5) K/uL Baso # (Auto) (0-0.2) K/uL Immature Gran # (Auto) (0.00-0.02) K/uL Platelet Estimate (Normal) Hypochromasia Microcytosis Tear Drop Cells Ovalocytes PT (9.0-12.0) Seconds INR (0.9-1.1) APTT (21.0-31.0) Seconds PTT Ratio Sodium (136-145) mmol/L Potassium (3.5-5.1) mmol/L Chloride (98-107) mmol/L Carbon Dioxide (21-32) mmol/L Anion Gap (3-11) BUN (7-18) mg/dl Creatinine (0.6-1.2) mg/dl Est Cr Clr Drug Dosing ml/min Est GFR ( Amer) ml/min Est GFR (Non-Af Amer) ml/min BUN/Creatinine Ratio (10-20) Glucose (70-99) mg/dl Lactate (0.4-2.0) mmol/L Calcium (8.5-10.1) mg/dl Magnesium (1.8-2.4) mg/dl Total Bilirubin (0.2-1) mg/dl AST (15-37) U/L ALT (12-78) Alkaline Phosphatase (45-117) U/L Total Protein (6.4-8.2) gm/dl Albumin (3.4-5.0) gm/dl Globulin (2.5-4.0) gm/dl Albumin/Globulin Ratio (0.9-2) Procalcitonin (0-0.5) ng/ml Urine Color Urine Appearance (Clear) Urine pH (4.5-7.5) Ur Specific Maben (1.000-1.030) Urine Protein (Negative) Urine Glucose (UA) (Negative) Urine Ketones (Negative) Urine Blood (Negative) Urine Nitrite (Negative) Urine Bilirubin (Negative) Urine Urobilinogen (Negative) Ur Leukocyte Esterase (Negative) Fld Lyme DNA (PCR) Pending Fluid Comment CSF Appearance Clear CSF Color Colorless Xanthrochromic No xanthochromia CSF WBC 0 (0-5) /uL CSF RBC 0 (0-) /uL CSF Cell Count Tube # 3 CSF Chemistry Tube # Cancelled 1 CSF Glucose Cancelled 70 (40-70) mg/dl CSF Lactate Cancelled CSF Total Protein 65.4 H (15-45) mg/dl CSF VDRL Pending Lyme Specimen Source Pending SARS-CoV-2, RNA, NAAT (NEGATIVE) 04/16/21 04/16/21 04/15/21 Range/Units 01:13 00:20 23:47 WBC (4.8-10.8) K/uL RBC (4.2-5.4) M/uL Hgb (12.0-16.0) g/dL Hct (37-47) % MCV (80-100) fL MCH (25-34) pg MCHC (32-36) g/dL RDW Std Deviation (36.4-46.3) fL RDW Coeff of Jillian (11.5-14.5) % Plt Count (130-400) K/uL Immature Gran % (Auto) % Neut % (Auto) % Lymph % (Auto) % Door % (Auto) % Eos % (Auto) % Baso % (Auto) % Neut # (Auto) (1.4-6.5) K/uL Lymph # (Auto) (1.2-3.4) K/uL Door # (Auto) (0.11-0.59) K/uL Eos # (Auto) (0-0.5) K/uL Baso # (Auto) (0-0.2) K/uL Immature Gran # (Auto) (0.00-0.02) K/uL Platelet Estimate (Normal) Hypochromasia Microcytosis Tear Drop Cells Ovalocytes PT (9.0-12.0) Seconds INR (0.9-1.1) APTT (21.0-31.0) Seconds PTT Ratio Sodium (136-145) mmol/L Potassium (3.5-5.1) mmol/L Chloride (98-107) mmol/L Carbon Dioxide (21-32) mmol/L Anion Gap (3-11) BUN (7-18) mg/dl Creatinine (0.6-1.2) mg/dl Est Cr Clr Drug Dosing ml/min Est GFR ( Amer) ml/min Est GFR (Non-Af Amer) ml/min BUN/Creatinine Ratio (10-20) Glucose (70-99) mg/dl Lactate (0.4-2.0) mmol/L Calcium (8.5-10.1) mg/dl Magnesium (1.8-2.4) mg/dl Total Bilirubin (0.2-1) mg/dl AST (15-37) U/L ALT (12-78) Alkaline Phosphatase (45-117) U/L Total Protein (6.4-8.2) gm/dl Albumin (3.4-5.0) gm/dl Globulin (2.5-4.0) gm/dl Albumin/Globulin Ratio (0.9-2) Procalcitonin 0.22 (0-0.5) ng/ml Urine Color Yellow Urine Appearance Clear (Clear) Urine pH 7.0 (4.5-7.5) Ur Specific Maben 1.015 (1.000-1.030) Urine Protein Negative (Negative) Urine Glucose (UA) Negative (Negative) Urine Ketones Negative (Negative) Urine Blood Negative (Negative) Urine Nitrite Negative (Negative) Urine Bilirubin Negative (Negative) Urine Urobilinogen Negative (Negative) Ur Leukocyte Esterase Negative (Negative) Fld Lyme DNA (PCR) Fluid Comment CSF Appearance CSF Color Xanthrochromic CSF WBC (0-5) /uL CSF RBC (0-) /uL CSF Cell Count Tube # CSF Chemistry Tube # CSF Glucose (40-70) mg/dl CSF Lactate CSF Total Protein (15-45) mg/dl CSF VDRL Lyme Specimen Source SARS-CoV-2, RNA, NAAT NEGATIVE (NEGATIVE) 04/15/21 04/15/21 04/15/21 Range/Units 23:47 23:47 23:47 WBC (4.8-10.8) K/uL RBC (4.2-5.4) M/uL Hgb (12.0-16.0) g/dL Hct (37-47) % MCV (80-100) fL MCH (25-34) pg MCHC (32-36) g/dL RDW Std Deviation (36.4-46.3) fL RDW Coeff of Jillian (11.5-14.5) % Plt Count (130-400) K/uL Immature Gran % (Auto) % Neut % (Auto) % Lymph % (Auto) % Door % (Auto) % Eos % (Auto) % Baso % (Auto) % Neut # (Auto) (1.4-6.5) K/uL Lymph # (Auto) (1.2-3.4) K/uL Door # (Auto) (0.11-0.59) K/uL Eos # (Auto) (0-0.5) K/uL Baso # (Auto) (0-0.2) K/uL Immature Gran # (Auto) (0.00-0.02) K/uL Platelet Estimate (Normal) Hypochromasia Microcytosis Tear Drop Cells Ovalocytes PT 11.5 (9.0-12.0) Seconds INR 1.1 (0.9-1.1) APTT 31.7 H (21.0-31.0) Seconds PTT Ratio 1.2 Sodium 134 L (136-145) mmol/L Potassium 3.1 L (3.5-5.1) mmol/L Chloride 101 (98-107) mmol/L Carbon Dioxide 26 (21-32) mmol/L Anion Gap 7.0 (3-11) BUN 7 (7-18) mg/dl Creatinine 0.68 (0.6-1.2) mg/dl Est Cr Clr Drug Dosing 79.3 ml/min Est GFR ( Amer) 106.4 ml/min Est GFR (Non-Af Amer) 91.8 ml/min BUN/Creatinine Ratio 9.6 L (10-20) Glucose 116 H (70-99) mg/dl Lactate 0.8 (0.4-2.0) mmol/L Calcium 8.0 L (8.5-10.1) mg/dl Magnesium 2.3 (1.8-2.4) mg/dl Total Bilirubin 0.7 (0.2-1) mg/dl AST 14 L (15-37) U/L ALT 21 (12-78) Alkaline Phosphatase 96 (45-117) U/L Total Protein 6.0 L (6.4-8.2) gm/dl Albumin 3.1 L (3.4-5.0) gm/dl Globulin 2.9 (2.5-4.0) gm/dl Albumin/Globulin Ratio 1.1 (0.9-2) Procalcitonin (0-0.5) ng/ml Urine Color Urine Appearance (Clear) Urine pH (4.5-7.5) Ur Specific Maben (1.000-1.030) Urine Protein (Negative) Urine Glucose (UA) (Negative) Urine Ketones (Negative) Urine Blood (Negative) Urine Nitrite (Negative) Urine Bilirubin (Negative) Urine Urobilinogen (Negative) Ur Leukocyte Esterase (Negative) Fld Lyme DNA (PCR) Fluid Comment CSF Appearance CSF Color Xanthrochromic CSF WBC (0-5) /uL CSF RBC (0-) /uL CSF Cell Count Tube # CSF Chemistry Tube # CSF Glucose (40-70) mg/dl CSF Lactate CSF Total Protein (15-45) mg/dl CSF VDRL Lyme Specimen Source SARS-CoV-2, RNA, NAAT (NEGATIVE) 04/15/21 Range/Units 23:47 WBC 8.19 (4.8-10.8) K/uL RBC 4.48 (4.2-5.4) M/uL Hgb 9.3 L (12.0-16.0) g/dL Hct 29.7 L (37-47) % MCV 66.3 L (80-100) fL MCH 20.8 L (25-34) pg MCHC 31.3 L (32-36) g/dL RDW Std Deviation 38.9 (36.4-46.3) fL RDW Coeff of Jillian 16.1 H (11.5-14.5) % Plt Count 129 L (130-400) K/uL Immature Gran % (Auto) 0.1 % Neut % (Auto) 75.2 % Lymph % (Auto) 6.6 % Door % (Auto) 17.9 % Eos % (Auto) 0.1 % Baso % (Auto) 0.1 % Neut # (Auto) 6.15 (1.4-6.5) K/uL Lymph # (Auto) 0.54 L (1.2-3.4) K/uL Door # (Auto) 1.47 H (0.11-0.59) K/uL Eos # (Auto) 0.01 (0-0.5) K/uL Baso # (Auto) 0.01 (0-0.2) K/uL Immature Gran # (Auto) 0.01 (0.00-0.02) K/uL Platelet Estimate Normal (Normal) Hypochromasia Present Microcytosis Present Tear Drop Cells 1+ Ovalocytes 1+ PT (9.0-12.0) Seconds INR (0.9-1.1) APTT (21.0-31.0) Seconds PTT Ratio Sodium (136-145) mmol/L Potassium (3.5-5.1) mmol/L Chloride (98-107) mmol/L Carbon Dioxide (21-32) mmol/L Anion Gap (3-11) BUN (7-18) mg/dl Creatinine (0.6-1.2) mg/dl Est Cr Clr Drug Dosing ml/min Est GFR ( Amer) ml/min Est GFR (Non-Af Amer) ml/min BUN/Creatinine Ratio (10-20) Glucose (70-99) mg/dl Lactate (0.4-2.0) mmol/L Calcium (8.5-10.1) mg/dl Magnesium (1.8-2.4) mg/dl Total Bilirubin (0.2-1) mg/dl AST (15-37) U/L ALT (12-78) Alkaline Phosphatase (45-117) U/L Total Protein (6.4-8.2) gm/dl Albumin (3.4-5.0) gm/dl Globulin (2.5-4.0) gm/dl Albumin/Globulin Ratio (0.9-2) Procalcitonin (0-0.5) ng/ml Urine Color Urine Appearance (Clear) Urine pH (4.5-7.5) Ur Specific Maben (1.000-1.030) Urine Protein (Negative) Urine Glucose (UA) (Negative) Urine Ketones (Negative) Urine Blood (Negative) Urine Nitrite (Negative) Urine Bilirubin (Negative) Urine Urobilinogen (Negative) Ur Leukocyte Esterase (Negative) Fld Lyme DNA (PCR) Fluid Comment CSF Appearance CSF Color Xanthrochromic CSF WBC (0-5) /uL CSF RBC (0-) /uL CSF Cell Count Tube # CSF Chemistry Tube # CSF Glucose (40-70) mg/dl CSF Lactate CSF Total Protein (15-45) mg/dl CSF VDRL Lyme Specimen Source SARS-CoV-2, RNA, NAAT (NEGATIVE) Medications Administered Current Inpatient Medications Acetaminophen (Acetaminophen 325 Mg Tab) 650 mg PO Q4H PRN PRN Reason: pain/fever Stop: 05/16/21 05:22 Acetaminophen/Butalbital/Caffeine (Butalbital/Acetamin/Caffeine Tab) 1 tab PO TID PRN PRN Reason: TENSION HEADACHES Stop: 05/16/21 05:22 Last Admin: 04/16/21 06:12 Dose: 1 tab Documented by: Al Hydrox/Mg Hydrox/Simethicone (Aluminum/Magnesium/Simeth (Maalox Max) 30 Ml Udc) 10 ml PO DAILY PRN PRN Reason: Indigestion Stop: 05/16/21 05:30 Cetirizine HCl (Cetirizine Hcl 10 Mg Tablet) 10 mg PO DAILY [facility] Stop: 05/16/21 08:59 Last Admin: 04/16/21 08:22 Dose: 10 mg Documented by: Cyclobenzaprine HCl (Cyclobenzaprine Hcl 10 Mg Tab) 10 mg PO TID [facility] Stop: 05/16/21 13:59 Last Admin: 04/16/21 14:25 Dose: 10 mg Documented by: Diclofenac Sodium (Diclofenac Sod 1% Gel 100 Gm Tube) 2 gm EXT DAILY [facility] Stop: 05/16/21 08:59 Last Admin: 04/16/21 08:24 Dose: 2 gm Documented by: Diphenhydramine HCl (Diphenhydramine Capsule 25 Mg Cap) 25 mg PO DAILY PRN PRN Reason: NEEDED Stop: 05/16/21 05:22 Enoxaparin Sodium (Enoxaparin Inj 30 Mg/0.3 Ml Syr) 30 mg SQ Q24H [facility] Stop: 05/16/21 08:59 Last Admin: 04/16/21 08:23 Dose: 30 mg Documented by: Famotidine (Famotidine 20 Mg Tab) 20 mg PO TID PRN PRN Reason: Indigestion Stop: 05/16/21 05:22 Furosemide (Furosemide 20 Mg Tab) 60 mg PO DAILY [facility] Stop: 05/16/21 08:59 Last Admin: 04/16/21 08:21 Dose: 60 mg Documented by: Cefepime HCl 2,000 mg/ Syringe 20 mls @ 5 mls/min IV Q8H [facility]; Protocol Stop: 04/26/21 03:29 Last Admin: 04/16/21 04:10 Dose: 5 mls/min Documented by: Ampicillin Sodium 2,000 mg/ (Sodium Chloride) 100 mls @ 200 mls/hr IV Q4H [facility] Stop: 04/26/21 03:29 Last Infusion: 04/16/21 09:00 Dose: Infused Documented by: Acyclovir Sodium 500 mg/ (Dextrose) 110 mls @ 100 mls/hr IV Q8H [facility] Stop: 04/26/21 12:59 Vancomycin HCl 1,000 mg/ (Sodium Chloride) 270 mls @ 200 mls/hr IV Q12H [facility] Stop: 04/26/21 11:59 Ketorolac Tromethamine (Ketorolac Tromethamine 10 Mg Tablet) 10 mg PO TID [facility] Stop: 04/21/21 08:59 Last Admin: 04/16/21 11:59 Dose: 10 mg Documented by: Levothyroxine Sodium (Levothyroxine Sodium 137 Mcg Tablet) 137 mcg PO DAILYBB [facility] Stop: 05/16/21 06:29 Last Admin: 04/16/21 06:12 Dose: 137 mcg Documented by: Magnesium Hydroxide (Magnesium Hydroxide Susp 30 Ml Udc) 30 ml PO Q6H PRN PRN Reason: Constipation Stop: 05/16/21 05:22 Meclizine HCl (Meclizine Hcl 25 Mg Tab) 25 mg PO QID PRN PRN Reason: Dizziness Stop: 05/16/21 05:33 Last Admin: 04/16/21 09:23 Dose: 25 mg Documented by: Metoprolol Succinate (Metoprolol Succ 50mg Ext Rel Tab) 150 mg PO QAM [facility] Stop: 05/16/21 08:59 Last Admin: 04/16/21 08:20 Dose: 150 mg Documented by: Metoprolol Succinate (Metoprolol Succ 50mg Ext Rel Tab) 100 mg PO PM [facility] Stop: 05/16/21 20:59 Metoprolol Tartrate (Metoprolol Tartrate 50 Mg Tab) 50 mg PO TID PRN PRN Reason: tachycardia Stop: 05/16/21 05:22 Miscellaneous (Venetoclax - Order Awaiting Action) 1 ea N/A QS [facility] Stop: 05/16/21 07:59 Miscellaneous Information (Vancomycin Consult Active) 1 ea N/A UD PRN PRN Reason: Consult Stop: 05/15/21 23:37 Morphine Sulfate (Morphine Sulfate Cr 15 Mg Tabcr) 30 mg PO BID [facility] Stop: 04/30/21 18:59 Last Admin: 04/16/21 08:45 Dose: 30 mg Documented by: Nabumetone (Nabumetone 500 Mg Tablet) 750 mg PO BID [facility] Stop: 05/16/21 08:59 Non-Formulary Medication (Olopatadine [Patanol]) 1 drops OP BID [facility] Stop: 05/16/21 20:59 Non-Formulary Patient's Own Med- Potassium 10meq Cap 2 ea PO BID [facility] Stop: 05/16/21 20:59 Ofloxacin (Ofloxacin 0.3% 75 Drops/5 Ml Btl) 1 drops OPB QID [facility] Stop: 04/26/21 08:59 Last Admin: 04/16/21 14:05 Dose: Not Given Documented by: Ondansetron HCl (Ondansetron 8mg Od Tab) 8 mg PO TID PRN PRN Reason: NAUSEA/VOMITING Stop: 05/16/21 05:34 Last Admin: 04/16/21 08:25 Dose: 8 mg Documented by: Ondansetron HCl (Ondansetron Inj 2 Mg/Ml 2 Ml Vial) 4 mg IV Q6H PRN PRN Reason: Nausea Stop: 05/16/21 05:22 Oxycodone HCl (Oxycodone Hcl Ir 5 Mg Tab (Immediate Release)) 20 mg PO TID PRN PRN Reason: pain Stop: 04/30/21 03:32 Last Admin: 04/16/21 14:02 Dose: 20 mg Documented by: Pantoprazole Sodium (Pantoprazole 40 Mg Tab) 40 mg PO BID [facility] Stop: 05/16/21 08:59 Last Admin: 04/16/21 08:21 Dose: 40 mg Documented by: Phenazopyridine HCl (Phenazopyridine Hcl 200 Mg Tab) 200 mg PO TID PRN PRN Reason: BLADDER PAIN Stop: 05/16/21 05:22 Pilocarpine HCl (Pilocarpine Hcl 5 Mg Tablet) 5 mg PO TID [facility] Stop: 05/16/21 08:59 Last Admin: 04/16/21 08:17 Dose: 5 mg Documented by: Promethazine HCl (Promethazine Hcl 25 Mg Tab) 25 mg PO Q4H PRN PRN Reason: nausea and vomiting Stop: 05/16/21 05:22 Sumatriptan Succinate (Sumatriptan Succinate 100 Mg Tab) 100 mg PO DAILY PRN PRN Reason: migraine headache Stop: 05/16/21 05:22 Timolol Maleate (Timolol Maleate 0.5% Op Soln 5 Ml Btl) 1 drops OP BID [facility] Stop: 05/16/21 20:59 Vancomycin HCl (Vancomycin 50mg/Ml Fortified Oph Drops) 1 drops OP Q4H [facility] Stop: 04/26/21 13:59 Zolpidem Tartrate (Zolpidem Tartrate 10 Mg Tab) 10 mg PO HS PRN PRN Reason: sleep Stop: 05/16/21 05:22
[2021-04-16] MEDS: KETOROLAC TROMETHAMINE 10 MG TABLET PO SCH ×3 (11:59→20:02)
[2021-04-16] MEDS ORDERED: VANCOMYCIN 50 MG/ML OP SCH (14:00)
[2021-04-16] MEDS: CYCLOBENZAPRINE HCL 10 MG TAB PO SCH ×2 (14:25→20:02)
[2021-04-16] MEDS: VANCOMYCIN HCL 1,000 MG in SODIUM CHLORIDE 0.9% 250 ML IV SCH ×2 (15:32→23:42)
[2021-04-16 16:51] LABS: Cryptococcus neoformans/ga PCR Not Detected (NotDetected); Cytomegalovirus PCR Not Detected (NotDetected); Enterovirus PCR Not Detected (NotDetected); Escherichia coli K1 PCR Not Detected (NotDetected); Haemophilius influenzae PCR Not Detected (NotDetected); Herpes Simplex Virus 1 PCR Not Detected (NotDetected); Herpes Simplex Virus 2 PCR Not Detected (NotDetected); Human Herpes Virus 6 PCR Not Detected (NotDetected); Human Parechovirus PCR Not Detected (NotDetected); Listeria monocytogenes PCR Not Detected (NotDetected); Neisseria meningitidis PCR Not Detected (NotDetected); Streptococcus agalactiae PCR Not Detected (NotDetected); Streptococcus pneumoniae PCR Not Detected (NotDetected); Varicella Zoster Virus PCR Not Detected (NotDetected)
[2021-04-16] MEDS: VANCOMYCIN 50 MG/ML OP SCH ×3 (17:01→20:56)
[2021-04-16] MEDS: POTASSIUM 10 MEQ PO SCH ×2 (17:01→20:03)
[2021-04-16] MEDS: ACYCLOVIR SOD 500 MG in DEXTROSE 5% 100 ML IV SCH (19:37)
[2021-04-16] MEDS: TIMOLOL MALEATE 0.5% OP SOLN 5 ML BTL OP SCH (20:03)
[2021-04-16] MEDS ORDERED: POTASSIUM 10 MEQ PO SCH (21:00)
[2021-04-17] MEDS: ACYCLOVIR SOD 500 MG in DEXTROSE 5% 100 ML IV SCH ×2 (01:56→08:24)
[2021-04-17] MEDS: VANCOMYCIN 50 MG/ML OP SCH ×6 (01:56→22:56)
[2021-04-17] MEDS: CEFEPIME 2,000 MG in SYRINGE 0 ML IV SCH ×2 (01:56→08:25)
[2021-04-17] MEDS: AMPICILLIN 2,000 MG in SODIUM CHLOR 0.9% AD-VAN 100 ML IV SCH ×2 (03:08→06:32)
[2021-04-17] MEDS: LEVOTHYROXINE SODIUM 137 MCG TABLET PO SCH (06:09)
[2021-04-17 06:13] LABS: Mean Corpuscular Hgb Conc 30.6 g/dL (32-36)
[2021-04-17 06:44] LABS: BUN Creatinine Ratio 11.6 (10-20); Calcium 7.7 mg/dl (8.5-10.1); Creatinine Clr Calc Pharmacy 77.1 ml/min; Est GFR (African American) 105.4 ml/min; Est GFR (Non-African American) 90.9 ml/min; Phosphorus 2.9 mg/dl (2.5-4.9); Potassium 2.8 mmol/L (3.5-5.1)
[2021-04-17 06:45] LABS: Hematocrit (blood only) 27.8 % (37-47); Hemoglobin 8.5 g/dL (12.0-16.0); Mean Corpuscular Hemoglobin 20.5 pg (25-34); Mean Corpuscular Volume 67.1 fL (80-100); RDW Coefficient of Variation 16.1 % (11.5-14.5); RDW Standard Deviation 39.9 fL (36.4-46.3); Red Blood Count 4.14 M/uL (4.2-5.4)
[2021-04-17 06:48] LABS: Platelet Count 123 K/uL (130-400)
[2021-04-17 06:49] LABS: Basophils # (auto) 0.01 K/uL (0-0.2); Basophils % (auto) 0.2 %; Eosinophils # (auto) 0.07 K/uL (0-0.5); Eosinophils % (auto) 1.6 %; Hypochromasia Present; Lymphocytes # (auto) 0.48 K/uL (1.2-3.4); Lymphocytes % (auto) 11.2 %; Microcytosis Present; Monocytes # (auto) 0.91 K/uL (0.11-0.59); Monocytes % (auto) 21.2 %; Neutrophils # (auto) 2.83 K/uL (1.4-6.5); Neutrophils % (auto) 65.8 %; Ovalocytes 1+; Platelet Estimate Decreased (Normal); Target Cells 1+; Tear Drop Cells 1+
--- NOTE | 2021-04-17 07:22 | Hospitalist Progress Note ---
Date of Service April 17, 2021 Assessment & Plan (1) Neck stiffness: Plan: Diana Pan is a 66y/o F w/ PMH significant for chronic lymphocytic leukemia, small lymphocytic lymphoma, chronic dacryocystitis, Sjogren's syndrome, ankylosing spondylitis, congenital coloboma, beta thalassemia, degenerative disc disease of the cervical and lumbar spine, fibromyalgia/myofascial pain syndrome, supraventricular tachycardia, polyneuropathy, trigeminal neuralgia; who presents for concerns of radicular pain and neck stiffness in the setting of recent eye infection.Given clinical hx of relative immuno suppression pt was started on empiric bacterial coverage for meningitis including vancomycin, ampicillin, cefepime on admission. Narrowed to Vanc/Meropenem pr ID recs #Neck stiffness: Meningitis r/o VS MSK Uncertain etiology of current neck stiffness in the setting of chronic cervical degenerative disc disease, In the setting of immunosuppressed patient (on Venclexta) concern for meningitis viral versus bacterial. CT head demonstrating no acute intracranial hemorrhage, extra axial fluid collection, or mass-effect. CT C-spine demonstrating no acute fracture or malalignment of cervical spine with notable multilevel degenerative changes of C-spine -Lumbar puncture performed in ED initial results unimpressive for bacterial meningitis. -CSF cultures pending -Blood cultures pending -Per conversation with PT on 1/10 am she states after her eye procedure she was not very mobile. Last Friday she drove to [place] to see a doctor and has endorsed significant msk pain since that time. -She thinks her symptoms are 2/2 to this trip #Chronic dacryocystitis: CT face demonstrating 11 mm well-defined cystic thin-walled left-sided medial canthal mass which are representing a cystocele, with visualization of small amount of air in right nasolacrimal duct. Recent cultures from 04/03 demonstrating MRSA within nasolacrimal sac cultures per patient records. Discontinue amoxicillin/Augmentin previously being utilized as outpatient -Continue vancomycin and meningitic dosing as above -Consulted ID appreciate recs -Continue -CSF Bio-Fire Negative -> DC acyclovir -MRI Brain, Facial Bones, Sinuses, C & T Spine to rule out acute osteo -pt endorses hx of claustrophobia 1 mg ativan IVP just prior to MRI -Continue IV Vanc and start meropenam @ [employer] Dosing -Follow Blood & CSF Cultures if negative plan to dc to po abx -Consult Optho #Chronic lymphocytic leukemia and small lymphocytic lymphoma: -Hold Venclexta pending culture results #Chronic myofascial pain: Patient at home on numerous pain control medications including Flexeril, Toradol, nabumetone, p.o. morphine, p.o. oxycodone. We will try to limit opiate withdrawal from complications/addition to above symptoms -Concerned for hyperalgesia 2/2 to medication regimen -Patient with noted allergy to Lyrica #Migraine headaches: -Fioricet and sumatriptan as needed #History of SVT: -Metoprolol [id number] mg every morning, 100 mg every afternoon with Toprol tartrate 50 mg 3 times daily as needed #Peripheral edema: -Lasix 60 mg daily FENa:Heart healthy Code Status:Full DVT PPX:Lovenox PT/OT:Consulted Case Management:Consulted Dispo:Pending negative CX Williams Montemayor MD PGY 3, FCM This chart was completed utilizing [employer] voice recognition software. Grammatical errors, random word insertions, pronoun errors, and in complete sentences are an occasional consequence of the system. Any questions or concerns about the content, text, or information contained within the body of this dictation should be addressed directly to the physician for clarification. (2) Chronic musculoskeletal pain: (3) Hypothyroidism: (4) Lumbar radiculopathy: (5) Migraine headache: (6) Myofascial pain syndrome: (7) Cervical radiculopathy: (8) Cervical somatic dysfunction: (9) Ankylosing spondylitis: (10) Sjoegren syndrome: (11) CLL (chronic lymphocytic leukemia): (12) History of PSVT (paroxysmal supraventricular tachycardia): (13) Cancer related pain: Admission and Anticipated Discharge Date Admission Date: April 16, 2021 Subjective Patient lying in bed this morning in no acute distress. Still endorsing neck pain. When I interviewed her she was sitting upright in bed not endorsing any pain. However progressively throughout the interview she began to endorse increasing pain despite no movement she denies any nausea or vomiting, chest pressure or chest pain. ID is recommending MRIs. Patient is refusing. Patient is frequently requesting muscle relaxers and pain medication. Notes she is tolerating a diet, voiding and stooling, culture still pending. Acute concerns relate to meningitis diagnosis. Physical Exam Physical Exam: General: Lying in bed no acute distress HEENT: Normocephalic atraumatic, bandage over I&D location, Clean dry and intact Neck: Normal to visual inspection Cardiac: Regular rate and rhythm I did not appreciate any significant murmurs rubs or gallops, normal S1, normal S2, negative pedal edema, negative calf tenderness Respiratory: Clear to auscultation bilaterally with symmetrical chest expansion did not appreciate a significant wheezes, rales, rhonchi GI: Soft, nontender, nondistended, bowel sounds present in all 4 quadrants MSK: Moves all extremities. Endorses pain when moving from a lying to a seated position Results & Data Results & Data ([facility]) Vital Signs (Past 12 Hours) Vital Signs Temp Pulse Resp BP BP Pulse Ox 04/17/21 07:11 36.7 C 81 16 125/72 91 04/16/21 22:39 36.6 C 84 22 127/73 94 Laboratory Results 04/17/21 04/17/21 04/16/21 Range/Units 05:40 05:40 01:40 WBC 4.30 L (4.8-10.8) K/uL RBC 4.14 L (4.2-5.4) M/uL Hgb 8.5 L (12.0-16.0) g/dL Hct 27.8 L (37-47) % MCV 67.1 L (80-100) fL MCH 20.5 L (25-34) pg MCHC 30.6 L (32-36) g/dL RDW Std Deviation 39.9 (36.4-46.3) fL RDW Coeff of Jillian 16.1 H (11.5-14.5) % Plt Count 123 L (130-400) K/uL Immature Gran % (Auto) 0.0 % Neut % (Auto) 65.8 % Lymph % (Auto) 11.2 % [place] % (Auto) 21.2 % Eos % (Auto) 1.6 % Baso % (Auto) 0.2 % Neut # (Auto) 2.83 (1.4-6.5) K/uL Lymph # (Auto) 0.48 L (1.2-3.4) K/uL [place] # (Auto) 0.91 H (0.11-0.59) K/uL Eos # (Auto) 0.07 (0-0.5) K/uL Baso # (Auto) 0.01 (0-0.2) K/uL Immature Gran # (Auto) 0.00 (0.00-0.02) K/uL Platelet Estimate Decreased L (Normal) Hypochromasia Present Microcytosis Present Target Cells 1+ Tear Drop Cells 1+ Ovalocytes 1+ Sodium 138 (136-145) mmol/L Potassium 2.8 L (3.5-5.1) mmol/L Chloride 105 (98-107) mmol/L Carbon Dioxide 29 (21-32) mmol/L Anion Gap 4.0 (3-11) BUN 8 (7-18) mg/dl Creatinine 0.70 (0.6-1.2) mg/dl Est Cr Clr Drug Dosing 77.1 ml/min Est GFR ( Amer) 105.4 ml/min Est GFR (Non-Af Amer) 90.9 ml/min BUN/Creatinine Ratio 11.6 (10-20) Glucose 97 (70-99) mg/dl Calcium 7.7 L (8.5-10.1) mg/dl Phosphorus 2.9 (2.5-4.9) mg/dl Magnesium 2.0 (1.8-2.4) mg/dl CSF Lyme IgG (Immblot) CSF Lyme IgG Bands Det CSF Lyme IgM (Immblot) CSF Lyme IgM Bands Det CSF C.neoform/gat PCR Not Detected (NotDetected) CSF CMV DNA (PCR) Not Detected (NotDetected) CSF Enterovirus (PCR) Not Detected (NotDetected) CSF E. coli K1 (PCR) Not Detected (NotDetected) CSF H. influenzae (PCR) Not Detected (NotDetected) CSF HSV I (PCR) Not Detected (NotDetected) CSF HSV II (PCR) Not Detected (NotDetected) CSF HHV 6 (PCR) Not Detected (NotDetected) CSF L.monocytogenes PCR Not Detected (NotDetected) CSF N. meningitidis PCR Not Detected (NotDetected) CSF Parechovirus (PCR) Not Detected (NotDetected) CSF S. agalactiae (PCR) Not Detected (NotDetected) CSF S. pneumoniae (PCR) Not Detected (NotDetected) CSF VZV DNA (PCR) Not Detected (NotDetected) CSF West Nile IgM Ab EBV Source EBV DNA, Quant EBV DNA (PCR) 04/16/21 04/16/21 04/16/21 Range/Units 01:40 01:40 01:40 WBC (4.8-10.8) K/uL RBC (4.2-5.4) M/uL Hgb (12.0-16.0) g/dL Hct (37-47) % MCV (80-100) fL MCH (25-34) pg MCHC (32-36) g/dL RDW Std Deviation (36.4-46.3) fL RDW Coeff of Jillian (11.5-14.5) % Plt Count (130-400) K/uL Immature Gran % (Auto) % Neut % (Auto) % Lymph % (Auto) % [place] % (Auto) % Eos % (Auto) % Baso % (Auto) % Neut # (Auto) (1.4-6.5) K/uL Lymph # (Auto) (1.2-3.4) K/uL [place] # (Auto) (0.11-0.59) K/uL Eos # (Auto) (0-0.5) K/uL Baso # (Auto) (0-0.2) K/uL Immature Gran # (Auto) (0.00-0.02) K/uL Platelet Estimate (Normal) Hypochromasia Microcytosis Target Cells Tear Drop Cells Ovalocytes Sodium (136-145) mmol/L Potassium (3.5-5.1) mmol/L Chloride (98-107) mmol/L Carbon Dioxide (21-32) mmol/L Anion Gap (3-11) BUN (7-18) mg/dl Creatinine (0.6-1.2) mg/dl Est Cr Clr Drug Dosing ml/min Est GFR ( Amer) ml/min Est GFR (Non-Af Amer) ml/min BUN/Creatinine Ratio (10-20) Glucose (70-99) mg/dl Calcium (8.5-10.1) mg/dl Phosphorus (2.5-4.9) mg/dl Magnesium (1.8-2.4) mg/dl CSF Lyme IgG (Immblot) Pending CSF Lyme IgG Bands Det Pending CSF Lyme IgM (Immblot) Pending CSF Lyme IgM Bands Det Pending CSF C.neoform/gat PCR (NotDetected) CSF CMV DNA (PCR) (NotDetected) CSF Enterovirus (PCR) (NotDetected) CSF E. coli K1 (PCR) (NotDetected) CSF H. influenzae (PCR) (NotDetected) CSF HSV I (PCR) (NotDetected) CSF HSV II (PCR) (NotDetected) CSF HHV 6 (PCR) (NotDetected) CSF L.monocytogenes PCR (NotDetected) CSF N. meningitidis PCR (NotDetected) CSF Parechovirus (PCR) (NotDetected) CSF S. agalactiae (PCR) (NotDetected) CSF S. pneumoniae (PCR) (NotDetected) CSF VZV DNA (PCR) (NotDetected) CSF West Nile IgM Ab Pending EBV Source Pending EBV DNA, Quant Pending EBV DNA (PCR) Pending Medications Administered Current Inpatient Medications Acetaminophen (Acetaminophen 325 Mg Tab) 650 mg PO Q4H PRN PRN Reason: pain/fever Stop: 05/16/21 05:22 Acetaminophen/Butalbital/Caffeine (Butalbital/Acetamin/Caffeine Tab) 1 tab PO TID PRN PRN Reason: TENSION HEADACHES Stop: 05/16/21 05:22 Last Admin: 04/16/21 06:12 Dose: 1 tab Documented by: Al Hydrox/Mg Hydrox/Simethicone (Aluminum/Magnesium/Simeth (Maalox Max) 30 Ml Udc) 10 ml PO DAILY PRN PRN Reason: Indigestion Stop: 05/16/21 05:30 Cetirizine HCl (Cetirizine Hcl 10 Mg Tablet) 10 mg PO DAILY [facility] Stop: 05/16/21 08:59 Last Admin: 04/16/21 08:22 Dose: 10 mg Documented by: Cyclobenzaprine HCl (Cyclobenzaprine Hcl 10 Mg Tab) 10 mg PO TID WALT Stop: 05/16/21 13:59 Last Admin: 04/16/21 20:02 Dose: 10 mg Documented by: Diclofenac Sodium (Diclofenac Sod 1% Gel 100 Gm Tube) 2 gm EXT DAILY WALT Stop: 05/16/21 08:59 Last Admin: 04/16/21 08:24 Dose: 2 gm Documented by: Diphenhydramine HCl (Diphenhydramine Capsule 25 Mg Cap) 25 mg PO DAILY PRN PRN Reason: NEEDED Stop: 05/16/21 05:22 Enoxaparin Sodium (Enoxaparin Inj 30 Mg/0.3 Ml Syr) 30 mg SQ Q24H [facility] Stop: 05/16/21 08:59 Last Admin: 04/16/21 08:23 Dose: 30 mg Documented by: Famotidine (Famotidine 20 Mg Tab) 20 mg PO TID PRN PRN Reason: Indigestion Stop: 05/16/21 05:22 Furosemide (Furosemide 20 Mg Tab) 60 mg PO DAILY [facility] Stop: 05/16/21 08:59 Last Admin: 04/16/21 08:21 Dose: 60 mg Documented by: Cefepime HCl 2,000 mg/ Syringe 20 mls @ 5 mls/min IV Q8H [facility]; Protocol Stop: 04/26/21 03:29 Last Admin: 04/17/21 01:56 Dose: 5 mls/min Documented by: Ampicillin Sodium 2,000 mg/ (Sodium Chloride) 100 mls @ 200 mls/hr IV Q4H [facility] Stop: 04/26/21 03:29 Last Admin: 04/17/21 06:32 Dose: 100 mls/hr Documented by: Acyclovir Sodium 500 mg/ (Dextrose) 110 mls @ 100 mls/hr IV Q8H [facility] Stop: 04/26/21 12:59 Last Infusion: 04/17/21 03:09 Dose: Infused Documented by: Vancomycin HCl 1,000 mg/ (Sodium Chloride) 270 mls @ 200 mls/hr IV Q12H [facility] Stop: 04/26/21 11:59 Last Infusion: 04/17/21 02:02 Dose: Infused Documented by: Ketorolac Tromethamine (Ketorolac Tromethamine 10 Mg Tablet) 10 mg PO TID [facility] Stop: 04/21/21 08:59 Last Admin: 04/16/21 20:02 Dose: 10 mg Documented by: Levothyroxine Sodium (Levothyroxine Sodium 137 Mcg Tablet) 137 mcg PO DAILYBB [facility] Stop: 05/16/21 06:29 Last Admin: 04/17/21 06:09 Dose: 137 mcg Documented by: Magnesium Hydroxide (Magnesium Hydroxide Susp 30 Ml Udc) 30 ml PO Q6H PRN PRN Reason: Constipation Stop: 05/16/21 05:22 Meclizine HCl (Meclizine Hcl 25 Mg Tab) 25 mg PO QID PRN PRN Reason: Dizziness Stop: 05/16/21 05:33 Last Admin: 04/16/21 09:23 Dose: 25 mg Documented by: Metoprolol Succinate (Metoprolol Succ 50mg Ext Rel Tab) 150 mg PO QAM [facility] Stop: 05/16/21 08:59 Last Admin: 04/16/21 08:20 Dose: 150 mg Documented by: Metoprolol Succinate (Metoprolol Succ 50mg Ext Rel Tab) 100 mg PO PM [facility] Stop: 05/16/21 20:59 Last Admin: 04/16/21 20:02 Dose: 100 mg Documented by: Metoprolol Tartrate (Metoprolol Tartrate 50 Mg Tab) 50 mg PO TID PRN PRN Reason: tachycardia Stop: 05/16/21 05:22 Miscellaneous (Venetoclax - Order Awaiting Action) 1 ea N/A QS [facility] Stop: 05/16/21 07:59 Last Admin: 04/16/21 17:20 Dose: Not Given Documented by: Miscellaneous (Order Awaiting Action) 1 ea N/A QS [facility] Stop: 05/16/21 15:59 Last Admin: 04/16/21 22:32 Dose: Not Given Documented by: Miscellaneous Information (Vancomycin Consult Active) 1 ea N/A UD PRN PRN Reason: Consult Stop: 05/15/21 23:37 Morphine Sulfate (Morphine Sulfate Cr 15 Mg Tabcr) 30 mg PO BID [facility] Stop: 04/30/21 18:59 Last Admin: 04/16/21 20:02 Dose: 30 mg Documented by: Nabumetone (Nabumetone 500 Mg Tablet) 750 mg PO BID [facility] Stop: 05/16/21 08:59 Non-Formulary Patient's Own Med- Potassium 10meq Cap 2 ea PO BID [facility] Stop: 05/16/21 14:59 Last Admin: 04/16/21 20:03 Dose: 2 meq Documented by: Ofloxacin (Ofloxacin 0.3% 75 Drops/5 Ml Btl) 1 drops OPB QID [facility] Stop: 04/26/21 08:59 Last Admin: 04/16/21 14:05 Dose: Not Given Documented by: Ondansetron HCl (Ondansetron 8mg Od Tab) 8 mg PO TID PRN PRN Reason: NAUSEA/VOMITING Stop: 05/16/21 05:34 Last Admin: 04/16/21 08:25 Dose: 8 mg Documented by: Ondansetron HCl (Ondansetron Inj 2 Mg/Ml 2 Ml Vial) 4 mg IV Q6H PRN PRN Reason: Nausea Stop: 05/16/21 05:22 Oxycodone HCl (Oxycodone Hcl Ir 5 Mg Tab (Immediate Release)) 20 mg PO TID PRN PRN Reason: pain Stop: 04/30/21 03:32 Last Admin: 04/16/21 22:47 Dose: 20 mg Documented by: Pantoprazole Sodium (Pantoprazole 40 Mg Tab) 40 mg PO BID [facility] Stop: 05/16/21 08:59 Last Admin: 04/16/21 20:02 Dose: 40 mg Documented by: Phenazopyridine HCl (Phenazopyridine Hcl 200 Mg Tab) 200 mg PO TID PRN PRN Reason: BLADDER PAIN Stop: 05/16/21 05:22 Pilocarpine HCl (Pilocarpine Hcl 5 Mg Tablet) 5 mg PO TID [place] Stop: 05/16/21 08:59 Last Admin: 04/16/21 20:03 Dose: 5 mg Documented by: Promethazine HCl (Promethazine Hcl 25 Mg Tab) 25 mg PO Q4H PRN PRN Reason: nausea and vomiting Stop: 05/16/21 05:22 Sumatriptan Succinate (Sumatriptan Succinate 100 Mg Tab) 100 mg PO DAILY PRN PRN Reason: migraine headache Stop: 05/16/21 05:22 Timolol Maleate (Timolol Maleate 0.5% Op Soln 5 Ml Btl) 1 drops OP BID [facility] Stop: 05/16/21 20:59 Last Admin: 04/16/21 20:03 Dose: 1 drops Documented by: Vancomycin HCl (Vancomycin 50mg/Ml Fortified Oph Drops) 1 drops OP Q4H [facility] Stop: 04/26/21 13:59 Last Admin: 04/17/21 06:09 Dose: 1 drops Documented by: Zolpidem Tartrate (Zolpidem Tartrate 10 Mg Tab) 10 mg PO HS PRN PRN Reason: sleep Stop: 05/16/21 05:22
[2021-04-17] MEDS: MoRPHine SULFATE CR 15 MG TABCR PO SCH ×2 (08:08→20:07)
[2021-04-17] MEDS: PANTOprazole 40 MG TAB PO SCH ×2 (08:09→20:09)
[2021-04-17] MEDS: FUROSEMIDE 20 MG TAB PO SCH (08:10)
[2021-04-17] MEDS: KETOROLAC TROMETHAMINE 10 MG TABLET PO SCH ×3 (08:11→20:09)
[2021-04-17] MEDS: CETIRIZINE HCL 10 MG TABLET PO SCH (08:11)
[2021-04-17] MEDS: BUTALBITAL/ACETAMIN/CAFFEINE TAB PO PRN ×2 (08:12→13:53)
[2021-04-17] MEDS: METOPROLOL SUCC 50MG EXT REL TAB PO SCH ×2 (08:12→20:12)
[2021-04-17] MEDS: ONDANSETRON 8MG OD TAB PO PRN (08:13)
[2021-04-17] MEDS: POTASSIUM 10 MEQ PO SCH ×2 (08:15→20:05)
[2021-04-17] MEDS: PILOCARPINE HCL 5 MG TABLET PO SCH ×3 (08:15→20:04)
[2021-04-17] MEDS: DICLOFENAC SOD 1% GEL 100 GM TUBE EXT SCH (08:16)
[2021-04-17] MEDS: TIMOLOL MALEATE 0.5% OP SOLN 5 ML BTL OP SCH ×2 (08:19→20:06)
[2021-04-17] MEDS: ENOXAPARIN INJ 30 MG/0.3 ML SYR SQ SCH (09:11)
[2021-04-17] MEDS: CYCLOBENZAPRINE HCL 10 MG TAB PO SCH ×3 (09:11→20:03)
[2021-04-17] MEDS ORDERED: MEROPENEM CONSULT ACTIVE PRN (09:49)
[2021-04-17] MEDS: oxyCODONE HCL IR 5 MG TAB (IMMEDIATE RELEASE) PO PRN ×2 (10:36→20:07)
[2021-04-17] MEDS ORDERED: LORazepam 1 MG/2 ML VIAL IV SCH (10:43)
[2021-04-17] MEDS ORDERED: LORazepam 1 MG/2 ML VIAL IV PRN (10:46)
[2021-04-17] MEDS: MEROPENEM 2,000 MG in 0.9 % SODIUM CHLORIDE 58 ML IV SCH ×2 (11:24→21:36)
[2021-04-17] MEDS ORDERED: VANCOMYCIN TROUGH ONE (11:30)
[2021-04-17] MEDS: VANCOMYCIN HCL 1,000 MG in SODIUM CHLORIDE 0.9% 250 ML IV SCH (12:08)
--- NOTE | 2021-04-17 12:58 | Pharmacy Report ---
Pharmacy Abx Dose Short Note - Date of Service April 17, 2021 - Assessment & Plan Assessment * 66 year old F receiving VANCOMYCIN + MEROPENEM for treatment of possible meningitis * Day # 2 of antimicrobial therapy. Day #2 vancomycin. Day # 1 meropenem (had received cefepime + ampicillin for 1 day prior to start of meropenem). * CSF cx: no growth to date * CSF: no WBC, Glu 70, Protein 65.4, no organisms on gram stain * CSF BioFire: negative (screens for 14 most common bacterial/viral organisms); of note the panel does not include staph aureus or pseudomonas) * + h/o MRSA growing in nasolacrimal sac cx from recent ophthalmic procedure. Patient remains on vancomycin ophthalmic drops * Renal fxn stable Plan Vancomycin * Patient has been receiving 1000mg IV Q 12 hrs * Trough level of 13.6 mcg/mL obtained prior to 3rd maint dose. Plan to continue current maint dose as it is still predicted to achieve goal AUC/ALLA of 400-600 with a 10% predicted risk of nephrotoxicity * Will draw trough again in 2 days Meropenem * eCrCl > 50, 2gm IV Q 8 hrs indicated for meningitis dosing Pharmacy will continue to follow and will adjust dose/frequency as necessary. Thank you.
[2021-04-17] MEDS: ACYCLOVIR 400 MG TAB PO SCH ×2 (13:34→20:14)
--- NOTE | 2021-04-17 14:16 | Ophthalmology Consultation ---
Date of Consultation April 17, 2021 Assessment & Plan (1) Dacryocystitis, chronic: The wound over the nasal lacrimal sac looks to be healing well. However, the patient really would most appropriately be followed by an oculoplastics specialist such as Dr. Benson. I would strongly encourage contacting him to direct your care as he has seen her numerous times for this problem (including 3 times last week) and performed her most recent procedure. I do not have the requisite expertise in nasolacrimal duct surgery or management of recurrent dacryocystis that this patient requires. If further input from ophthalmology is required and Dr. Benson's expertise cannot be utilized at [facility] I would strongly suggest transferring her to a facility with oculoplastics on staff. In the meantime I would continue antibiotic therapy as recommended by infectious disease. History of Present Illness Reason for Consultation: Chronic dacryocystitis Attending Physician: Layne Ambrocio MD History of Present Illness The patient is a very pleasant 66 yo woman with a long standing history of right sided dacryocystitis. 8 days ago (last friday) she was evaluated by Dr. Benson, an oculoplastics specialist for an acute flair of right sided dacryocystitis. He acutely drained the cyst, placed packing, sent for cultures, and started antibiotics. He also recommended further surgery to prevent future episodes. He then saw her again Friday and Friday. The wound packing mostly came out on its own and then patient at the direction of Dr. Benson removed the remaining packing. The patient developed head and neck pain on Friday. After consulting with Dr. Benson the patient presented to the hospital for workup of systemic spread of infection. After admission IV antibiotic therapy was begun and an LP was performed. Patients reports no improvement in her symptoms since admission. 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 Allergies Allergy/AdvReac Type Severity Reaction Status Date / Time bacitracin Allergy Intermediate RASH/SWELLI Verified 04/15/21 23:37 NG/WELTS bee venom protein (honey bee) Allergy Intermediate HIVES ALL Verified 04/15/21 23:37 OVER, TROUBLE BREATHING bromfenac Allergy Intermediate EYELIDS Verified 04/15/21 23:37 SWELLING, EYE DROPS xibrom dicyclomine Allergy Intermediate RASH ALL Verified 04/15/21 23:37 OVER BODY doxycycline Allergy Intermediate HIVES Verified 04/15/21 23:37 lamotrigine Allergy Intermediate WELTS Verified 04/15/21 23:37 loteprednol Allergy Intermediate FEELS Verified 04/15/21 23:37 INTENSE BURNING IN EYES mupirocin Allergy Intermediate RASH Verified 04/15/21 23:37 neomycin Allergy Intermediate RASH/SWELLI Verified 04/15/21 23:37 NG/WELTS polymyxin B Allergy Intermediate RASH/SWELLI Verified 04/15/21 23:37 NG/WELTS pregabalin Allergy Intermediate SWELLING Verified 04/15/21 23:37 HANDS/FEET, MOUTH SORES sulfamethoxazole Allergy Intermediate RASH Verified 04/15/21 23:37 tetracycline Allergy Intermediate HIVES Verified 04/15/21 23:37 topiramate Allergy Intermediate WELTS Verified 04/15/21 23:37 trimethoprim Allergy Intermediate RASH Verified 04/15/21 23:37 adhesive Allergy Mild SKIN Verified 04/15/21 23:37 IRRITATION, WELTS prochlorperazine AdvReac Severe MUSCLE Verified 04/15/21 23:37 SPASMS, EYES ROLL BACK IN HEAD aspirin AdvReac Intermediate BRUISING Verified 04/15/21 23:37 ALL OVER Bleach (Sodium Hypochlorite) AdvReac Intermediate AFFECTS Verified 04/15/21 23:37 BREATHING ibuprofen AdvReac Intermediate BRUISING Verified 04/15/21 23:37 ALL OVER trimethobenzamide AdvReac Intermediate MUSCLE Verified 04/15/21 23:37 CONTRACTION IVORY SOAP Allergy Unknown HIVES Uncoded 04/15/21 23:37 LAVENDER Allergy Unknown EYES/NOSE Uncoded 04/15/21 23:37 BURNING METALS Allergy Unknown IRRITATION Uncoded 04/15/21 23:37 TO SITE/SWELLING PABA (SUNTAN LOTIONS) Allergy Unknown SKIN RASH Uncoded 04/15/21 23:37 PATCHOULI Allergy Unknown TRIGGERS Uncoded 04/15/21 23:37 BREATHING PROBLEMS PURFUMES Allergy Unknown TROUBLE Uncoded 04/15/21 23:37 BREATHING ROUTE CANAL POSTS Allergy Unknown SEVERE Uncoded 04/15/21 23:37 INFECTION SURGICAL AMPARO Allergy Unknown SWELLING Uncoded 04/15/21 23:37 AT AREA/RASH WOOL Allergy Unknown HIVES Uncoded 04/15/21 23:37 Home Medications Medication Instructions Recorded Confirmed Type famotidine 20 mg tablet 20 mg PO TID PRN #90 tab 12/26/18 04/15/21 History pantoprazole 40 mg tablet,delayed 40 mg PO BID #180 tab 12/26/18 04/15/21 History release pilocarpine HCl 5 mg tablet 5 mg PO TID tab 12/26/18 04/15/21 History timolol maleate 0.5 % once daily 1 drops OP BID 12/26/18 04/15/21 History eye drops (Istalol) venetoclax 100 mg tablet 200 mg PO QPM tab 12/26/18 04/15/21 History ofloxacin 0.3 % eye drops (Ocuflox) 1 drops OP QID 03/24/19 04/15/21 History olopatadine 0.1 % eye drops 1 drops OP BID 03/24/19 04/15/21 History (Patanol) prednisolone acetate 1 % eye 1 drops OP TID ml 10/26/19 04/15/21 History drops,suspension (Pred Forte) potassium chloride 10 mEq 20 meq PO BID #120 cap 03/17/20 04/15/21 Rx capsule,extended release cyclobenzaprine 10 mg tablet 10 mg PO TID 30 Days #90 tab 10/19/20 04/15/21 Rx levothyroxine 150 mcg tablet 137 mcg PO DAILYBB tab 12/22/20 04/15/21 History (Synthroid) nabumetone 750 mg tablet 750 mg PO BID 30 Days #60 tab 01/25/21 04/15/21 Rx fremanezumab-vfrm 225 mg/1.5 mL 225 mg SUBCUT MONTHLY #1 ml 03/14/21 04/15/21 Rx subcutaneous syringe morphine 30 mg tablet,extended 30 mg PO BID #60 tab 03/14/21 04/15/21 Rx release oxycodone 20 mg tablet 20 mg PO TID PRN #90 tab 03/14/21 04/15/21 Rx zolpidem 10 mg tablet 10 mg PO HS PRN 30 Days #30 tab 03/14/21 04/15/21 Rx metoprolol tartrate 50 mg tablet 50 mg PO TID PRN #90 tab 03/23/21 04/15/21 Rx Magic Swizzle 1 dose PO DIRECTED PRN 04/15/21 04/15/21 History acyclovir 400 mg tablet 400 mg PO TID 04/15/21 04/15/21 History aluminum-mag hydroxide-simethicone 10 ml PO DIRECTED PRN 04/15/21 04/15/21 History 200 mg-200 mg-20 mg/5 mL oral susp [id number]-xjsbbqufbfoyk-tyknxhzu 1 tab PO TID PRN 04/15/21 04/15/21 History 50 mg-325 mg-40 mg tablet cetirizine 10 mg tablet (Zyrtec) 10 mg PO DAILY 04/15/21 04/15/21 History diclofenac sodium 1 % topical gel 2 g TOPICAL DAILY 04/15/21 04/15/21 History diphenhydramine HCl 25 mg capsule 25 mg PO DIRECTED PRN 04/15/21 04/15/21 History (Benadryl) furosemide 40 mg tablet 60 mg PO DAILY 04/15/21 04/15/21 History guaifenesin 600 mg tablet, 600 mg PO Q12H PRN 04/15/21 04/15/21 History extended release 12 hr (Mucinex) ketorolac 10 mg tablet 10 mg PO TID 04/15/21 04/15/21 History meclizine 25 mg tablet 25 mg PO QID PRN 04/15/21 04/15/21 History metoprolol succinate 100 mg See Rx Instructions .ROUTE .COMPLEX 04/15/21 04/15/21 History tablet,extended release 24 hr ondansetron HCl 8 mg tablet 8 mg PO TID PRN 04/15/21 04/15/21 History oxymetazoline 0.05 % nasal spray 2 spray INTRANASAL Q12H PRN 04/15/21 04/15/21 History (Afrin (oxymetazoline)) phenazopyridine 200 mg tablet 200 mg PO TID PRN 04/15/21 04/15/21 History (Pyridium) promethazine 25 mg tablet 25 mg PO Q4H PRN 04/15/21 04/15/21 History pseudoephedrine HCl 30 mg tablet 30 mg PO DIRECTED PRN 04/15/21 04/15/21 History (Sudafed) sumatriptan succinate 100 mg tablet 100 mg PO DAILY PRN MDD 4 TABS/24 04/15/21 04/15/21 History HOURS triamcinolone acetonide 55 mcg 1 spray INTRANASAL HS 04/15/21 04/15/21 History nasal spray aerosol amoxicillin 875 mg-potassium 1 tab PO BID 04/16/21 04/16/21 History clavulanate 125 mg tablet Patient History Medical History (Updated 04/17/21 @ 14:07 by Jackson Escobedo MD) Ankylosing spondylitis Bacteremia due to Gram-positive bacteria (2013) CLL (chronic lymphocytic leukemia) Ganglion cyst of both hands History of thyroid cancer Left knee DJD Sjoegren syndrome Thalassemia syndrome Trigger finger of both hands Venous insufficiency (chronic) (peripheral) Surgical History H/O colonoscopy (2010) History of common bile duct surgery History of dilatation and curettage History of throat surgery (2009) Thoat mass excised (Dr. 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 Motility was normal. Anterior segment was unremarkable with a clear cornea, deep and quiet anterior chamber, round and reactive pupil, clear lens, and quiet conjunctiva. Below the right medial canthus in the area of the lacrimal sac there was a small flat scab. There was no purulent drainage. The skin surrounding the wound was not edematous with minimal erythema. Fundus exam was somewhat challenging due to a small pupil but appeared grossly normal on the right side. Results & Data ([facility]) Vital Signs (Past 12 Hours) Vital Signs Temp Pulse Resp BP Pulse Ox 04/17/21 07:11 36.7 C 81 16 125/72 91
[2021-04-17] MEDS ORDERED: GADOBUTROL 65ML VIAL IV ONE (18:46)
--- NOTE | 2021-04-17 20:04 | Magnetic Resonance Report ---
MR brain wo/w con CLINICAL HISTORY: per ID MRSA in the right eye. Open wound on face near right orbit. Neck and head pa in for 2 days. TECHNIQUE: Multiplanar and multisequence MR images of the brain were obtained prior to and following administration of gadolinium contrast. Comparison: None available at the time of this dictation. FINDINGS: No abnormal restricted diffusion is identified. The white matter is unremarkable. The ventricular sys tem is normal in appearance. There is no evidence of acute intraparenchymal hemorrhage. No extra axia l fluid collections are seen. There are no masses, mass effect, or midline shift. No abnormal enhance ment is seen. The corpus callosum, pituitary gland, and cerebellar tonsils appear grossly unremarkab le. Flow voids of the major intracranial arterial vessels are identified. The imaged portions of the para nasal sinuses and mastoid air cells are unremarkable. A colabomatous cyst is seen on the right. No ab normal enhancement is seen. IMPRESSION: 1. No acute abnormalities and in particular no evidence of abnormal enhancement is patient with an o pen wound. 2. A colabomatous cyst is in the right globe. ACT 112: Negative or not required by law. Electronically signed by: Marquez Johnson M.D. 04/17/2021 8:03 PM
--- NOTE | 2021-04-17 20:59 | Magnetic Resonance Report ---
MR orbit wo/w con CLINICAL HISTORY: per ID Technique: Multiplanar, multisequence MR images of the orbits were obtained before and after intrave nous administration of gadolinium contrast. COMPARISON: Prior MRI brain 04/17/2021 Findings: The optic nerves are within normal limits with regard to size and signal intensity. They are symmetrical bilaterally. No abnormal enhancement is shown within the intraorbital, intracanalicu lar, or intracranial segments of the optic nerves. A colabomatous cyst is in the left globe. A dacryo cystocele is cyst on the left. The extraocular muscles are symmetrical bilaterally and normally enhan ce. The optic chiasm and optic tracts are normal. There is no compression of the optic chiasm. There are no masses or areas of abnormal signal or enhancement within visible portions of the brain parench yma. Impression: A colabomatous cyst is in the left globe. No evidence of abnormal enhancement. ACT 112: Negative or not required by law. Electronically signed by: Marquez Johnson M.D. 04/17/2021 8:58 PM
[2021-04-18] MEDS: VANCOMYCIN HCL 1,000 MG in SODIUM CHLORIDE 0.9% 250 ML IV SCH ×2 (00:08→14:42)
[2021-04-18] MEDS: VANCOMYCIN 50 MG/ML OP SCH ×4 (02:02→14:43)
[2021-04-18] MEDS: MEROPENEM 2,000 MG in 0.9 % SODIUM CHLORIDE 58 ML IV SCH ×2 (03:55→11:00)
[2021-04-18 05:27] LABS: Mean Corpuscular Hgb Conc 30.9 g/dL (32-36)
[2021-04-18 05:42] LABS: Hematocrit (blood only) 26.9 % (37-47); Hemoglobin 8.3 g/dL (12.0-16.0); Mean Corpuscular Hemoglobin 20.8 pg (25-34); Mean Corpuscular Volume 67.3 fL (80-100); RDW Coefficient of Variation 15.8 % (11.5-14.5); RDW Standard Deviation 39.6 fL (36.4-46.3); White Blood Count 3.75 K/uL (4.8-10.8)
[2021-04-18 05:48] LABS: Platelet Count 118 K/uL (130-400)
[2021-04-18 05:50] LABS: BUN Creatinine Ratio 9.5 (10-20); Basophils # (auto) 0.01 K/uL (0-0.2); Basophils % (auto) 0.3 %; Calcium 7.4 mg/dl (8.5-10.1); Creatinine Clr Calc Pharmacy 64.2 ml/min; Eosinophils # (auto) 0.11 K/uL (0-0.5); Eosinophils % (auto) 2.9 %; Est GFR (African American) 84.5 ml/min; Est GFR (Non-African American) 72.9 ml/min; Giant Platelets 1+; Hypochromasia Present; Lymphocytes # (auto) 0.43 K/uL (1.2-3.4); Lymphocytes % (auto) 11.5 %; Microcytosis Present; Monocytes # (auto) 0.86 K/uL (0.11-0.59); Monocytes % (auto) 22.9 %; Neutrophils # (auto) 2.34 K/uL (1.4-6.5); Neutrophils % (auto) 62.4 %; Ovalocytes 1+; Platelet Estimate Decreased (Normal); Tear Drop Cells 1+
[2021-04-18] MEDS: BUTALBITAL/ACETAMIN/CAFFEINE TAB PO PRN ×2 (05:53→14:37)
[2021-04-18] MEDS: LEVOTHYROXINE SODIUM 137 MCG TABLET PO SCH (05:53)
[2021-04-18] MEDS: MECLIZINE HCL 25 MG TAB PO PRN (08:59)
[2021-04-18] MEDS: ONDANSETRON 8MG OD TAB PO PRN (09:00)
[2021-04-18] MEDS: PILOCARPINE HCL 5 MG TABLET PO SCH ×2 (09:00→14:35)
[2021-04-18] MEDS ORDERED: POTASSIUM CHLORIDE CRTAB 20 MEQ TABCR PO SCH (09:00)
[2021-04-18] MEDS: ENOXAPARIN INJ 30 MG/0.3 ML SYR SQ SCH (09:02)
[2021-04-18] MEDS: METOPROLOL SUCC 50MG EXT REL TAB PO SCH (09:03)
[2021-04-18] MEDS: FUROSEMIDE 20 MG TAB PO SCH (09:10)
[2021-04-18] MEDS: KETOROLAC TROMETHAMINE 10 MG TABLET PO SCH ×2 (09:11→14:35)
[2021-04-18] MEDS: PANTOprazole 40 MG TAB PO SCH (09:12)
[2021-04-18] MEDS: DICLOFENAC SOD 1% GEL 100 GM TUBE EXT SCH (09:12)
[2021-04-18] MEDS: POTASSIUM 10 MEQ PO SCH (09:13)
[2021-04-18] MEDS: ACYCLOVIR 400 MG TAB PO SCH ×2 (09:13→14:36)
[2021-04-18] MEDS: CETIRIZINE HCL 10 MG TABLET PO SCH (09:14)
[2021-04-18] MEDS: TIMOLOL MALEATE 0.5% OP SOLN 5 ML BTL OP SCH (09:16)
[2021-04-18] MEDS: CYCLOBENZAPRINE HCL 10 MG TAB PO SCH ×2 (09:24→14:42)
[2021-04-18] MEDS: MoRPHine SULFATE CR 15 MG TABCR PO SCH (09:24)
--- NOTE | 2021-04-18 09:45 | Discharge Summary ---
Date of Service April 18, 2021 Admission HPI Per Admitting Provider Diana Pan is a 66y/o F w/ PMH significant for chronic lymphocytic leukemia, small lymphocytic lymphoma, chronic dacryocystitis, Sjogren's syndrome, ankylosing spondylitis, congenital coloboma, beta thalassemia, degenerative joint disease of the cervical lumbar spine, fibromyalgia/myofascial pain syndrome, supraventricular tachycardia, polyneuropathy, trigeminal neuralgia; who presents for concerns of radicular pain and neck stiffness in the setting of recent eye infection. Recently had cultures of right lacrimal duct that demonstrated MRSA, and over the last 2 weeks has been on antibiotic treatments for this chronic dacryocystitis. Over the last day or 2 she noticed that she is having intense loose stools/diarrhea persistently throughout the day, and then this morning noted neck stiffness and pain with the development of a fever to 101.8. As result of this called her oncologist in [place] who instructed her to present to the closest ER. Continues to have intermittent shooting pains of her neck with inability to move and/or bend her neck. Feels the shooting pains from the back of her head down her spine. Has not noticed any ability to move or changes in strength of upper or lower extremities as compared to baseline. Regularly does have difficulty with pain however these pains are significantly different than anything she has experienced before. Given recent ocular infection concerns, with development of neck stiffness concern in ED for meningitis and patient had lumbar puncture prior to initiation of antibiotics for appropriate specimen collection. Intermittently in ED patient with increased sedation, but frequently broken by suddenly being awoken by shooting pain. Admission Exam Per Admitting Provider Constitutional: well developed, + disheveled and cooperative; + uncomfortable Respiratory: normal respiratory effort; no respiratory distress, no labored breathing, no retractions and does not use accessory muscles Cardiovascular: Rate/Rhythm: regular rate and regular rhythm Extremities: + pedal edema Gastrointestinal (Abdomen): Inspection/Auscultation: abdomen not distended Percussion/Palpation: abdomen soft; abdomen nontender and no guarding Musculoskeletal: Head/Neck/Chest: + limited ROM of neck and neck supple Spine: + pain with cervical ROM and + cervical spasm Extremities: strength 5/5 throughout Neurologic: moves all extremities and awake Speech / Cognition: normal speech, no expressive aphasia, no receptive aphasia and normal cognition Motor/Sensory: no tremor and normal movement Psychiatric: Orientation: alert and oriented x 3 Principal Diagnosis New onset neck pain in an immuno comprimised pt Discharge Exam General: No acute distress HEENT: Normocephalic atraumatic Neck: No significant lymphadenopathy, trachea midline, normal to visual inspection Cardiac: Regular rate and rhythm, normal S1, normal S2, I did not appreciated any significant murmurs rubs or gallops, I did not appreciate any significant pedal edema, No calf tenderness, capillary refill is less than 3 seconds Respiratory: Clear to auscultation bilaterally with symmetrical chest rise, I did not appreciate any significant wheezes, rales, rhonchi, no increased work of breathing GI: Normal bowel sounds, soft, nontender in all 4 quadrants, nondistended MSK: No sensory or motor changes, moves all extremities without issue, extremities are warm and well-perfused Skin: [place], clean, dry, intact. Neuro: Alert and oriented x4 Psych: Calm, cooperative, logical thought process Discharge Data Allergies Allergy/AdvReac Type Severity Reaction Status Date / Time bacitracin Allergy Intermediate RASH/SWELLI Verified 04/15/21 23:37 NG/ACE bee venom protein (honey bee) Allergy Intermediate HIVES ALL Verified 04/15/21 23:37 OVER, TROUBLE BREATHING bromfenac Allergy Intermediate EYELIDS Verified 04/15/21 23:37 SWELLING, EYE DROPS xibrom dicyclomine Allergy Intermediate RASH ALL Verified 04/15/21 23:37 OVER BODY doxycycline Allergy Intermediate HIVES Verified 04/15/21 23:37 lamotrigine Allergy Intermediate WELTS Verified 04/15/21 23:37 loteprednol Allergy Intermediate FEELS Verified 04/15/21 23:37 INTENSE BURNING IN EYES mupirocin Allergy Intermediate RASH Verified 04/15/21 23:37 neomycin Allergy Intermediate RASH/SWELLI Verified 04/15/21 23:37 NG/CAE polymyxin B Allergy Intermediate RASH/SWELLI Verified 04/15/21 23:37 NG/HARVEYTS pregabalin Allergy Intermediate SWELLING Verified 04/15/21 23:37 HANDS/FEET, MOUTH SORES sulfamethoxazole Allergy Intermediate RASH Verified 04/15/21 23:37 tetracycline Allergy Intermediate HIVES Verified 04/15/21 23:37 topiramate Allergy Intermediate WELTS Verified 04/15/21 23:37 trimethoprim Allergy Intermediate RASH Verified 04/15/21 23:37 adhesive Allergy Mild SKIN Verified 04/15/21 23:37 IRRITATION, WELTS prochlorperazine AdvReac Severe MUSCLE Verified 04/15/21 23:37 SPASMS, EYES ROLL BACK IN HEAD aspirin AdvReac Intermediate BRUISING Verified 04/15/21 23:37 ALL OVER Bleach (Sodium Hypochlorite) AdvReac Intermediate AFFECTS Verified 04/15/21 23:37 BREATHING ibuprofen AdvReac Intermediate BRUISING Verified 04/15/21 23:37 ALL OVER trimethobenzamide AdvReac Intermediate MUSCLE Verified 04/15/21 23:37 CONTRACTION IVORY SOAP Allergy Unknown HIVES Uncoded 04/15/21 23:37 LAVENDER Allergy Unknown EYES/NOSE Uncoded 04/15/21 23:37 BURNING METALS Allergy Unknown IRRITATION Uncoded 04/15/21 23:37 TO SITE/SWELLING PABA (SUNTAN LOTIONS) Allergy Unknown SKIN RASH Uncoded 04/15/21 23:37 PATCHOULI Allergy Unknown TRIGGERS Uncoded 04/15/21 23:37 BREATHING PROBLEMS PURFUMES Allergy Unknown TROUBLE Uncoded 04/15/21 23:[address] ROUTE CANAL POSTS Allergy Unknown SEVERE Uncoded 04/15/21 23:37 INFECTION SURGICAL AMPARO Allergy Unknown SWELLING Uncoded 04/15/21 23:37 AT AREA/RASH WOOL Allergy Unknown HIVES Uncoded 04/15/21 23:37 Consultations 04/16/21 02:01 ED Decision to Admit Stat 04/16/21 08:37 Consult Infectious Diseases Routine 04/17/21 07:27 Consult Ophthalmology Routine Ordered Studies 04/15/21 23:34 CT cervical spine w con Urgent CT facial bones w con Urgent CT head/brain wo con Urgent 04/17/21 07:27 MR brain wo/w con Routine MR orbit wo/w con Routine 04/18/21 07:27 MR cervical spine wo/w con Routine MR thoracic spine wo/w con Routine Hospital Course (1) Neck stiffness: Diana Pan is a 66y/o F w/ PMH significant for chronic lymphocytic leukemia, small lymphocytic lymphoma, chronic dacryocystitis, Sjogren's syndrome, ankylosing spondylitis, congenital coloboma, beta thalassemia, degenerative disc disease of the cervical and lumbar spine, fibromyalgia/myofascial pain syndrome, supraventricular tachycardia, polyneuropathy, trigeminal neuralgia; who presents for concerns of radicular pain and neck stiffness in the setting of recent eye infection.Given clinical hx of relative immuno suppression pt was started on empiric bacterial coverage for meningitis including vancomycin, ampicillin, cefepime on admission. Narrowed to Vanc/Meropenem pr ID recs #Neck stiffness: Meningitis r/o suspect MSK MSK Uncertain etiology of current neck stiffness in the setting of chronic cervical degenerative disc disease, In the setting of immunosuppressed patient (on Venclexta) concern for meningitis viral versus bacterial. CT head demonstrating no acute intracranial hemorrhage, extra axial fluid collection, or mass-effect. CT C-spine demonstrating no acute fracture or malalignment of cervical spine with notable multilevel degenerative changes of C-spine -Lumbar puncture performed in ED -CSF cultures no growth at 48 hours -Blood cultures no growth at 48 hours -Per conversation with PT on 1/10 am she states after her eye procedure she was not very mobile. Last Friday she drove to [place] to see a doctor and has endorsed significant msk pain since that time. -She thinks her symptoms are 2/2 to this trip -Recommend outpatient follow-up with her roller painter #Chronic dacryocystitis: CT face demonstrating 11 mm well-defined cystic thin-walled left-sided medial canthal mass which are representing a cystocele, with visualization of small amount of air in right nasolacrimal duct. Recent cultures from 04/03 demonstrating MRSA within nasolacrimal sac cultures per patient records. Discontinue amoxicillin/Augmentin previously being utilized as outpatient. Patient was maintained on vancomycin, and meropenem pending negative cultures x48 hours. MRI of the face, orbit, T-spine and C-spine was performed to rule out occult infection demonstrating no acute changes or evidence of osteomyelitis. Bio fire was negative. Serologies that have returned have been negative. -Recommend patient follow-up with oculoplastics #Chronic lymphocytic leukemia and small lymphocytic lymphoma: -Resume Venclextaon D/C #Chronic myofascial pain: Patient at home on numerous pain control medications including Flexeril, Toradol, nabumetone, p.o. morphine, p.o. oxycodone. We will try to limit opiate withdrawal from complications/addition to above symptoms -Concerned for hyperalgesia 2/2 to medication regimen -Patient with noted allergy to Lyrica #Migraine headaches: -Fioricet and sumatriptan as needed #History of SVT: -Metoprolol succinate 150 mg every morning, 100 mg every afternoon with Toprol tartrate 50 mg 3 times daily as needed #Peripheral edema: -Lasix 60 mg daily FENa:Heart healthy Code Status:Full DVT PPX:Lovenox PT/OT:Consulted Case Management:Consulted Dispo:Pending negative CX Williams Montemayor MD PGY 3, FCM This chart was completed utilizing [employer]Jam voice recognition software. Grammatical errors, random word insertions, pronoun errors, and in complete sentences are an occasional consequence of the system. Any questions or concerns about the content, text, or information contained within the body of this dictation should be addressed directly to the physician for clarification. (2) Chronic musculoskeletal pain: (3) Hypothyroidism: (4) Lumbar radiculopathy: (5) Migraine headache: (6) Myofascial pain syndrome: (7) Cervical radiculopathy: (8) Cervical somatic dysfunction: (9) Ankylosing spondylitis: (10) Sjoegren syndrome: (11) CLL (chronic lymphocytic leukemia): (12) History of PSVT (paroxysmal supraventricular tachycardia): (13) Cancer related pain: Total Time Total Time Spent Total Time Spent (In Minutes): 43 Discharge Plan Discharge Items Patient Disposition: Home - Self-Care Reason For Visit: CONCERN FOR MENINGITIS Discharge Diagnosis: MSK strain Activity: Resume your previous activity Non-emergency contact: Primary Care Provider Call non-emergency contact if: you have any medication questions Follow-up/Referrals: PCP,NO [Primary Care Provider] - Diet: Regular Addtl Attending Provider Instructions: Care instructions: You were admitted to [facility] for treatment of Concern for meningitis determined to be msk strain. We recommend that you follow-up with your primary care provider on discharge neurologist and roller painter. We suspect the majority of your symptoms were largely due to MSK strain and he would probably benefit from physical therapy. Should he develop any fevers or chills, focal neurological symptoms, or other concerning symptoms please return for follow-up. A discharge summary will be sent to your primary care physician to ensure continuity of care. Please bring this discharge summary with you to your next office appointment so that your provider can review it at that time. Follow-up appointments: - Keep all your follow-up appointments as already scheduled. If you cannot make an appointment, notify your provider. - Please call to request a follow-up appointment with your primary care physician within one week of discharge. Please let us know if you are unable to obtain an appointment [facility] Medications: - Your medication list has been reviewed and reconciled upon discharge to ensure accuracy and continuity of care. - You are provided with a list of all your current medications at this time. Please review this list closely and make note of any changes. - Please take all of your medications exactly as prescribed. - Tell your primary care provider if you cannot afford your medications. - Call your primary care provider if you are having any side effects or any other problems. - Call your primary care provider before taking any over the counter medications or supplements, including herbals and vitamins, because some of these may interact with your current medications and/or make your symptoms worse. Symptoms: Please call your primary care provider for symptoms including, but not limited to: fevers (temperatures greater than 100.4), chills, intractable nausea or vomiting, diarrhea, rash, shortness of breath, bleeding, pain, or if you experience any worsening of the symptoms that brought you to the hospital. For EMERGENCY and VERY SERIOUS health-related issues, such as chest pain, shortness of breath, or sudden onset of the symptoms that brought you to the hospital, you may need to call 911 or go directly to the Emergency Room It has been our privilege to take care of you during your hospital stay. And Above All Else Feel Better! Best Wishes, Williams Montemayor MD PGY3 Resident, Family & Community Medicine [facility] Residency at [facility] Medical [facility] - [address], [address] MC: [address] [place] [address] Pending Studies at Discharge: Yes Stand-Alone Forms: My [facility], Opioid Pain Management, Smoking Cessation Medications and DC Order Prescriptions: Continued potassium chloride 10 mEq capsule, extended release 20 meq PO BID Qty: 120 RF: 6 nabumetone 750 mg tablet 750 mg PO BID 30 Days Qty: 60 RF: 3 metoprolol tartrate 50 mg tablet 50 mg PO TID PRN (Reason: tachycardia) Qty: 90 RF: 3 famotidine 20 mg tablet 20 mg PO TID PRN (Reason: Indigestion) Qty: 90 RF: 0 pantoprazole 40 mg tablet,delayed release (DR/EC) 40 mg PO BID Qty: 180 RF: 0 timolol maleate [Istalol] 0.5 % drops, once daily 1 drops OP BID RF: 0 pilocarpine HCl 5 mg tablet 5 mg PO TID RF: 0 venetoclax 100 mg tablet 200 mg PO QPM RF: 0 cyclobenzaprine 10 mg tablet 10 mg PO TID 30 Days Qty: 90 RF: 5 olopatadine [Patanol] 0.1 % drops 1 drops OP BID RF: 0 ofloxacin [Ocuflox] 0.3 % drops 1 drops OP QID RF: 0 prednisolone acetate [Pred Forte] 1 % drops,suspension 1 drops OP TID RF: 0 zolpidem 10 mg tablet 10 mg PO HS PRN (Reason: sleep) 30 Days Qty: 30 RF: 5 oxycodone 20 mg tablet 20 mg PO TID PRN (Reason: pain) Qty: 90 RF: 0 fremanezumab-vfrm 225 mg/1.5 mL syringe 225 mg subcut MONTHLY Qty: 1 RF: 11 morphine 30 mg tablet extended release 30 mg PO BID Qty: 60 RF: 0 levothyroxine [Synthroid] 150 mcg tablet 137 mcg PO DAILYBB RF: 0 cetirizine [Zyrtec] 10 mg Tablet 10 mg PO DAILY RF: 0 phenazopyridine [Pyridium] 200 mg Tablet 200 mg PO TID PRN (Reason: BLADDER PAIN) RF: 0 acyclovir 400 mg Tablet 400 mg PO TID RF: 0 meclizine 25 mg Tablet 25 mg PO QID PRN (Reason: Dizziness) RF: 0 diphenhydramine HCl [Benadryl] 25 mg Capsule 25 mg PO DIRECTED PRN (Reason: NEEDED) RF: 0 triamcinolone acetonide 55 mcg Aerosol,Rindge 1 spray INTRANASAL HS RF: 0 pseudoephedrine HCl [Sudafed] 30 mg Tablet 30 mg PO DIRECTED PRN (Reason: Congestion) RF: 0 alum-mag hydroxide-simeth 200-200-20 mg/5 mL Suspension 10 ml PO DIRECTED PRN (Reason: Indigestion) RF: 0 oxymetazoline [Afrin (oxymetazoline)] 0.05 % Rindge,Non-Aerosol 2 spray INTRANASAL Q12H PRN (Reason: Congestion) RF: 0 diclofenac sodium 1 % Gel 2 g TOPICAL DAILY RF: 0 guaifenesin [Mucinex] 600 mg Tablet Extended Release 12hr 600 mg PO Q12H PRN (Reason: Congestion) RF: 0 Magic Swizzle 1 dose PO DIRECTED PRN (Reason: MOUTH SORE FROM CHEMO) RF: 0 furosemide 40 mg tablet 60 mg PO DAILY RF: 0 sumatriptan succinate 100 mg tablet 100 mg PO DAILY MDD 4 TABS/24 HOURS PRN (Reason: migraine headache) RF: 0 ondansetron HCl 8 mg tablet 8 mg PO TID PRN (Reason: NAUSEA/VOMITING) RF: 0 metoprolol succinate 100 mg tablet extended release 24 hr See Rx Instructions .ROUTE .COMPLEX RF: 0 uyvujiibto-foqgjmevxoitp-miax 50-325-40 mg tablet 1 tab PO TID PRN (Reason: TENSION HEADACHES) RF: 0 ketorolac 10 mg tablet 10 mg PO TID RF: 0 promethazine 25 mg tablet 25 mg PO Q4H PRN (Reason: nausea and vomiting) RF: 0 Discontinued amoxicillin-pot clavulanate 875-125 mg tablet 1 tab PO BID RF: 0 Discharge Orders: Discharge Order (Routine); Ordered 04/18/21 Ordered By: Williams Montemayor Admission Data Admit Date/Time: 04/16/21 03:32 Attending Provider: Layne Ambrocio Admit Provider: Tom Cunningham Primary Care Provider: PCP,NO Other Providers: Marcos Lawson ; Russ Gonzalez ; Zachery Bolivar ; Francisco Montemayor I. ; Kal Bruno II ; Margaret Del Cid ; Mauricio Tran ; Neymar Mendez ; Jackson Escobedo Other Interventions: Discharge Summary Assessment (RN) Last Done: 04/18/21 17:10 Supervising Physician Co-Signing Physician Notes Resident Physician Supervision Note: I independently interviewed and examined the patient and verified the rubio history and physical, reviewed labs and image studies and agree with resident Dr. Montemayor findings and care plan.
[2021-04-18] MEDS: oxyCODONE HCL IR 5 MG TAB (IMMEDIATE RELEASE) PO PRN ×2 (10:00→14:41)
[2021-04-18] MEDS: POTASSIUM CHLORIDE 10 MEQ PO SCH ×4 (10:57→17:23)
[2021-04-18] MEDS ORDERED: GADOBUTROL 65ML VIAL IV ONE (13:59)
--- NOTE | 2021-04-18 16:03 | Magnetic Resonance Report ---
MR thoracic spine wo/w con HISTORY: 66 years-old Female Per ID screening study in a patient with a staph infection, history of leukemia and lymphoma. COMPARISON: MRI cervical spine of same day, CT cervical spine 04/16/2021. TECHNIQUE: Multiplanar multisequence MRI of the thoracic spine was obtained both with and without the use of 7.7 cc Gadavist FINDINGS: Trace pleural effusions. Degenerative changes are noted throughout the cervical and lumbar spine on t he localizer images. Partial bony fusion of the C5-C6 segments again noted. MRI of the cervical spina l be dictated separately. Grade 1 anterolisthesis L4 on L5, likely degenerative related. Study is mil dly motion degraded. There is no acute fracture, subluxation, bone marrow or soft tissue edema. No en dplate erosions or marrow replacing process. Signal within the imaged cervical and thoracic spinal co rd appears normal. The conus medullaris terminates at T12-L1. There is moderate multilevel intervertebral disc space narrowing with associated spondylitic spurring and facet arthrosis. Annular disc bulging is also noted throughout with small posterior disc osteoph yte complex formations. There is no high-grade central canal or neural foraminal narrowing identified . There is suggestion mild multilevel neural foraminal stenosis. At T1-T2 there is severe interverteb ral disc space narrowing with circumferential disc osteophyte complex which results in mild to modera te left with at least moderate right neural foraminal narrowing. No suspicious areas of abnormal enha ncement identified. IMPRESSION: 1. No acute fracture, subluxation or endplate erosion. No MRI evidence of discitis/osteomyelitis. 2. No epidural abscess or suspicious enhancement. 3. Multilevel degenerative changes as above. No significant central canal stenosis. 4. Normal signal of the thoracic spinal cord. 5. Trace pleural effusions. ACT 112: Negative or not required by law. The above report was generated using voice recognition software. It may contain grammatical, syntax o r spelling errors. Electronically signed by: Blade Sosa M.D. 04/18/2021 4:01 PM
--- NOTE | 2021-04-18 16:34 | Magnetic Resonance Report ---
MR OF THE CERVICAL SPINE WITHOUT IV CONTRAST CLINICAL HISTORY: per ID infection in the right orbit. Leukemia and lymphoma. Comparison: Comparison is made to MRI cervical spine 10/11/2019 TECHNIQUE: MRI of the cervical spine is performed utilizing various T1 and T2 sequences in the axial and sagittal planes. IV contrast was not administered for this examination. FINDINGS: Cervical spine: Vertebral body height and alignment are maintained throughout the cervical spine. The atlantodental articulation appears maintained. No destructive bony lesion is seen. Intervertebral discs: Disks are normal in height and signal. Spinal cord: The cervical spinal cord is normal in morphology and signal intensity. C2-C3: Unremarkable. C3-C4: Unremarkable. C4-C5: Mild posterior disc bulge with ligamentum flavum hypertrophy noted resulting in mild canal and mild bilateral neuroforaminal stenosis. C5-C6: Mild bilateral neural foraminal stenosis is seen. C6-C7: Minimal posterior disc bulge is seen. C7-T1: Mild posterior disc bulge without significant canal or neural foraminal stenosis. Soft tissues: The paraspinous and prevertebral soft tissues are normal in appearance. Brain parenchyma: Partially imaged brain parenchyma at the skull base is within normal limits. IMPRESSION: Mild degenerative changes as above. No abnormal enhancement is seen to suggest infectious process. ACT 112: Negative or not required by law. Electronically signed by: Marquez Johnson M.D. 04/18/2021 4:33 PM
[2021-04-19] MEDS ORDERED: VANCOMYCIN TROUGH ONE (11:30)
[2021-04-19 19:41] LABS: Lyme DNA PCR CSF or Synovial Not detected (Not Detected); Lyme DNA Source CSF; VDRL Qualitative CSF Nonreactive (Nonreactive)
[2021-04-21 16:45] LABS: EBV DNA Quant PCR <200 copies/mL (<200); EBV DNA Quant Source CSF
--- NOTE | 2021-05-26 10:38 | Coding Query ---
CODING QUERY To promote full compliance with coding requirements relating to patient care, provider participation is requested in all cases of agricultural produce packer uncertainty. Please assist us with the question(s) below: Coding Question(s): Dr. Chin, the patient underwent a spinal tap while in the ER on 04/15/21, but there is no documentation of the procedure itself. Please add an addendum to the patient's record with the description of the spinal tap. Physician's Response(s): I will add the procedure note to this patient's chart. Thank you for your time, KEON Sanders, [facility]
== END 2021-04-18 18:09 | disposition home or self-care (01) | DRG 552 ==
LOC: ED 23:03 → EDINP 04-16 03:32 → SUATTDRO 04-16 03:32 → 3E 04-16 09:56

== ENCOUNTER 2023-08-20 00:36 | Inpatient (IN) ==
[2023-08-20 01:21] LABS: Albumin Globulin Ratio 1.7 (0.9-2); Albumin Level 4.1 gm/dl (3.4-5.0); BUN Creatinine Ratio 19.4 (10-20); Bilirubin,Total 0.4 mg/dl (0.2-1.0); Calcium 8.7 mg/dl (8.6-10.3); Creatinine Clr Calc Pharmacy 66.9 ml/min; Est GFR (African American) 100.4 ml/min; Est GFR (Non-African American) 86.7 ml/min; Globulin 2.4 gm/dl (2.5-4.0); Potassium 3.8 mmol/L (3.5-5.1); Total Protein 6.5 gm/dl (6.0-8.3)
[2023-08-20] MEDS: OPTIRAY 320 100ml IV ONE (01:51)
--- NOTE | 2023-08-20 01:51 | Emergency Department Note ---
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 Detected (NotDetected) Stl E. histolytica PCR Not Detected (NotDetected) Stool Giardia Lamblia PCR Not Detected (NotDetected) Stool Salmonella PCR Not Detected (NotDetected) Stool Sapovirus (PCR) Not Detected (NotDetected) Stl P. shigelloides PCR Not Detected (NotDetected) Stl Shigella/EIEC PCR Not Detected (NotDetected) St Y.enterocolitica PCR Not Detected (NotDetected) Stool Vibrio (PCR) Not Detected (NotDetected) Stl Vibrio cholerae PCR Not Detected (NotDetected) Stl Norovirus GI/GII PCR Not Detected (NotDetected) Blood Type Antibody Screen Administered Medications Acetaminophen/Butalbital/Caffeine (Butalbital/Acetamin/Caffeine Tab) 1 tab PO TID PRN PRN Reason: TENSION HEADACHES Stop: 09/19/23 06:20 Last Admin: 08/20/23 21:48 Dose: 1 tab Documented By: Admin: 08/20/23 13:48 Dose: 1 tab Documented By: AMS Cetirizine HCl (Cetirizine Hcl 10 Mg Tablet) 10 mg PO QAM [facility] Stop: 09/19/23 08:59 Last Admin: 08/20/23 09:19 Dose: 10 mg Documented By: REINA Cyclobenzaprine HCl (Cyclobenzaprine Hcl 10 Mg Tab) 10 mg PO TID [facility] Stop: 09/19/23 08:59 Last Admin: 08/20/23 20:40 Dose: 10 mg Documented By: Admin: 08/20/23 13:09 Dose: 10 mg Documented By: Admin: 08/20/23 09:19 Dose: 10 mg Documented By: REINA Fluticasone Propionate (Fluticasone Propionate Na Spr 16 Gm Btl) 2 sprays NA HS [facility] Stop: 09/19/23 20:59 Last Admin: 08/20/23 20:39 Dose: Not Given Documented By: ISMAEL Furosemide (Furosemide 20 Mg Tab) 60 mg PO QAM [facility] Stop: 09/19/23 08:59 Last Admin: 08/20/23 09:23 Dose: Not Given Documented By: REINA Heparin Sodium (Porcine) (Heparin Sod 5,000 Unit/0.5 Ml Vial) 5,000 units SQ Q8H [facility] Stop: 09/19/23 07:59 Last Admin: 08/20/23 23:09 Dose: 5,000 units Documented By: Admin: 08/20/23 15:25 Dose: 5,000 units Documented By: Admin: 08/20/23 09:15 Dose: 5,000 units Documented By: REINA Hydromorphone HCl (Hydromorphone Inj 1 Mg/Ml Syringe) 1 mg IV Q2H PRN PRN Reason: Pain (6,7,8,9,10) Stop: 09/03/23 06:30 Last Admin: 08/20/23 21:49 Dose: 1 mg Documented By: Admin: 08/20/23 18:11 Dose: 1 mg Documented By: Admin: 08/20/23 14:15 Dose: 1 mg Documented By: Admin: 08/20/23 10:43 Dose: 1 mg Documented By: REINA Famotidine (Pepcid 20mg Iv Push) 20 mg in 5 mls @ 2.5 mls/min IV Q12H [facility] Stop: 09/19/23 20:59 Last Admin: 08/20/23 21:49 Dose: 2.5 mls/min Documented By: ISMAEL Metronidazole (Flagyl) 500 mg in 100 mls @ 100 mls/hr IV Q8H [facility]; Protocol Stop: 08/30/23 06:29 Last Infusion: 08/20/23 23:09 Dose: Infused Documented By: Admin: 08/20/23 22:06 Dose: 100 mls/hr Documented By: Infusion: 08/20/23 15:18 Dose: Infused Documented By: Admin: 08/20/23 14:13 Dose: 100 mls/hr Documented By: Infusion: 08/20/23 10:31 Dose: Infused Documented By: Admin: 08/20/23 08:34 Dose: 100 mls/hr Documented By: REINA Ondansetron HCl 6 mg/ Dextrose 53 mls @ 200 mls/hr IV Q6H PRN PRN Reason: Nausea And Vomiting Stop: 09/19/23 06:21 Last Infusion: 08/20/23 22:18 Dose: Infused Documented By: Admin: 08/20/23 21:49 Dose: 200 mls/hr Documented By: Infusion: 08/20/23 09:25 Dose: Infused Documented By: Admin: 08/20/23 08:51 Dose: 200 mls/hr Documented By: REINA Vancomycin HCl 1,500 mg/ (Sodium Chloride) 530 mls @ 200 mls/hr IV Q24H [facility] Stop: 08/22/23 07:30 Last Infusion: 08/20/23 18:02 Dose: Infused Documented By: Admin: 08/20/23 15:21 Dose: 200 mls/hr Documented By: ROGELIO Promethazine HCl 6.25 mg/ (Sodium Chloride) 50.25 mls @ 201 mls/hr IV Q6H PRN PRN Reason: Nausea And Vomiting Stop: 09/19/23 13:21 Last Infusion: 08/20/23 14:07 Dose: Infused Documented By: Admin: 08/20/23 13:48 Dose: 201 mls/hr Documented By: ROGELIO Ketorolac Tromethamine (Ketorolac 0.5% Op Soln 5 Ml Btl) 1 drops OPB TID [facility] Stop: 09/19/23 08:59 Last Admin: 08/20/23 20:37 Dose: 1 drops Documented By: Admin: 08/20/23 13:09 Dose: 1 drops Documented By: Admin: 08/20/23 09:16 Dose: 1 drops Documented By: REINA Levothyroxine Sodium (Levothyroxine Sodium 175 Mcg Tablet) 175 mcg PO DAILYBB [facility] Stop: 09/19/23 06:29 Last Admin: 08/20/23 08:34 Dose: 175 mcg Documented By: REINA Meclizine HCl (Meclizine Hcl 25 Mg Tab) 25 mg PO QID [facility] Stop: 09/19/23 08:59 Last Admin: 08/20/23 20:36 Dose: 25 mg Documented By: Admin: 08/20/23 17:03 Dose: 25 mg Documented By: Admin: 08/20/23 13:09 Dose: 25 mg Documented By: [facility] Admin: 08/20/23 09:19 Dose: 25 mg Documented By: REINA Metoprolol Succinate (Metoprolol Succ 50mg Ext Rel Tab) 150 mg PO QAM [facility] Stop: 09/19/23 08:59 Last Admin: 08/20/23 09:20 Dose: 150 mg Documented By: REINA Metoprolol Succinate (Metoprolol Succ 50mg Ext Rel Tab) 100 mg PO HS [facility] Stop: 09/19/23 20:59 Last Admin: 08/20/23 20:36 Dose: 100 mg Documented By: ISMAEL Miscellaneous (Order Awaiting Action: Olopatadine 0.1 % Drops) 1 each N/A QS [facility] Stop: 09/19/23 07:59 Last Admin: 08/20/23 15:18 Dose: Not Given Documented By: [facility] Admin: 08/20/23 12:28 Dose: Not Given Documented By: ROGELIO Nabumetone (Nabumetone 500 Mg Tablet) 750 mg PO BID [facility] Stop: 09/19/23 08:59 Last Admin: 08/20/23 20:36 Dose: 750 mg Documented By: Admin: 08/20/23 09:20 Dose: 750 mg Documented By: REINA Ofloxacin (Ofloxacin 0.3% 75 Drops/5 Ml Btl) 1 drops OP QID [facility] Stop: 08/30/23 08:59 Last Admin: 08/20/23 20:38 Dose: 1 drops Documented By: Admin: 08/20/23 17:03 Dose: 1 drops Documented By: Admin: 08/20/23 13:14 Dose: 1 drops Documented By: Admin: 08/20/23 09:26 Dose: 1 drops Documented By: REINA Pantoprazole Sodium (Pantoprazole 40 Mg Tab) 40 mg PO BIDM [facility] Stop: 09/19/23 07:59 Last Admin: 08/20/23 17:03 Dose: 40 mg Documented By: Admin: 08/20/23 09:16 Dose: 40 mg Documented By: REINA Pilocarpine HCl (Pilocarpine Hcl 5 Mg Tablet) 5 mg PO TID [facility] Stop: 09/19/23 08:59 Last Admin: 08/20/23 20:37 Dose: 5 mg Documented By: Admin: 08/20/23 13:09 Dose: 5 mg Documented By: Admin: 08/20/23 09:20 Dose: 5 mg Documented By: REINA Potassium Chloride (Potassium Chloride Crtab 20 Meq Tabcr) 20 meq PO BIDM [facility] Stop: 09/19/23 07:59 Last Admin: 08/20/23 17:04 Dose: Not Given Documented By: Admin: 08/20/23 09:22 Dose: Not Given Documented By: REINA Prednisolone Acetate (Prednisolone Acetate 1% Op Susp 5 Ml Btl) 1 drops OP TID [facility] Stop: 09/19/23 08:59 Last Admin: 08/20/23 20:38 Dose: 1 drops Documented By: Admin: 08/20/23 13:10 Dose: Not Given Documented By: Admin: 08/20/23 09:25 Dose: Not Given Documented By: REINA Timolol Maleate (Timolol Maleate 0.5% Op Soln 5 Ml Btl) 1 drops OP BID [facility] Stop: 09/19/23 08:59 Last Admin: 08/20/23 20:38 Dose: 1 drops Documented By: Admin: 08/20/23 09:21 Dose: 1 drops Documented By: REINA Discontinued Medications Cyclobenzaprine HCl (Cyclobenzaprine Hcl 10 Mg Tab) 10 mg PO NOW STA Stop: 08/20/23 01:46 Last Admin: 08/20/23 01:59 Dose: 10 mg Documented By: RASTA Hydromorphone HCl (Hydromorphone Inj 1 Mg/Ml Syringe) 1 mg IV NOW STA Stop: 08/20/23 01:45 Last Admin: 08/20/23 01:59 Dose: 1 mg Documented By: RASTA Hydromorphone HCl (Hydromorphone Inj 1 Mg/Ml Syringe) 1 mg IV NOW STA Stop: 08/20/23 03:05 Last Admin: 08/20/23 03:11 Dose: 1 mg Documented By: RASTA Hydromorphone HCl (Hydromorphone Inj 0.5 Mg/0.5 Ml Syr) 0.5 mg IV NOW STA Stop: 08/20/23 06:22 Last Admin: 08/20/23 06:41 Dose: 0.5 mg Documented By: RASTA Sodium Chloride (Nss) 1,000 mls @ 999 mls/hr IV .Q1H1M ONE Stop: 08/20/23 02:40 Last Infusion: 08/20/23 03:13 Dose: Infused Documented By: Admin: 08/20/23 02:03 Dose: 999 mls/hr Documented By: RASTA Promethazine HCl (Phenergan) 25 mg in 51 mls @ 204 mls/hr IV NOW STA Stop: 08/20/23 04:04 Last Infusion: 08/20/23 04:49 Dose: Infused Documented By: Admin: 08/20/23 03:55 Dose: 204 mls/hr Documented By: RASTA Ceftriaxone Sodium (Rocephin) 2,000 mg in 50 mls @ 100 mls/hr IV NOW STA Stop: 08/20/23 04:49 Last Infusion: 08/20/23 05:36 Dose: Infused Documented By: Admin: 08/20/23 05:03 Dose: 100 mls/hr Documented By: RASTA Vancomycin HCl 1,750 mg/ (Sodium Chloride) 535 mls @ 200 mls/hr IV NOW ONE Stop: 08/20/23 07:00 Last Infusion: 08/20/23 09:29 Dose: Infused Documented By: Infusion: 08/20/23 07:30 Dose: 200 mls/hr Documented By: Infusion: 08/20/23 07:10 Dose: 0 mls/hr Documented By: Admin: 08/20/23 05:35 Dose: 200 mls/hr Documented By: RASTA Famotidine (Pepcid 20mg Iv Push) 20 mg in 5 mls @ 2.5 mls/min IV NOW STA Stop: 08/20/23 06:22 Last Admin: 08/20/23 06:44 Dose: 2.5 mls/min Documented By: RASTA Sodium Chloride (Nss) 1,000 mls @ 100 mls/hr IV .Q10H [facility] Stop: 08/20/23 16:20 Last Infusion: 08/20/23 17:01 Dose: Infused Documented By: Infusion: 08/20/23 13:16 Dose: 100 mls/hr Documented By: Infusion: 08/20/23 13:06 Dose: 0 mls/hr Documented By: Admin: 08/20/23 06:46 Dose: 100 mls/hr Documented By: RASTA Ioversol (Optiray 320 100ml) 100 ml IV ONCE ONE Stop: 08/20/23 01:51 Last Admin: 08/20/23 01:51 Dose: 93 ml Documented By: MIREYA Imaging Data Radiologist's Impression: Abdomen/Pelvis CT 08/20/23 01:26 Exam(s): CT ABDOMEN + PELVIS With Contrast IV Amt: 93 ML OPTIRAY 320 EXAM: CT Abdomen and Pelvis With Intravenous Contrast CLINICAL HISTORY: Reason for exam: leukemia, abd pain w/ n/v. TECHNIQUE: Axial computed tomography images of the abdomen and pelvis with intravenous contrast. Automated exposure control was utilized for the study. A dose lowering technique was utilized adhering to the principles of ALARA. CONTRAST: Patient received 93 ML OPTIRAY 320 of IV contrast COMPARISON: 01/27/2019 FINDINGS: Lung bases: Unremarkable. No mass. No consolidation. ABDOMEN: Liver: Mild expected intrahepatic biliary ductal dilatation. Gallbladder and bile ducts: Gallbladder surgically absent. Pancreas: Unremarkable. No mass. No ductal dilation. Spleen: Splenomegaly. Adrenals: Unremarkable. No mass. Kidneys and ureters: Dilated extrarenal pelves bilaterally. Stomach and bowel: There are number of fluid-filled loops of small bowel within the left upper quadrant extending into the midline pelvis which are nonpathologically enlarged. Trace of associated inflammatory changes and fluid present. No mucosal thickening. PELVIS: Appendix: No findings to suggest acute appendicitis. Bladder: Urinary bladder is markedly distended. Reproductive: Unremarkable as visualized. ABDOMEN and PELVIS: Intraperitoneal space: Unremarkable. No free air. No significant fluid collection. Bones/joints: No acute fracture. No dislocation. Soft tissues: Unremarkable. Vasculature: Unremarkable. No abdominal aortic aneurysm. Lymph nodes: Extensive bilateral iliac chain retroperitoneal and pelvic side wall lymphadenopathy which has significantly increased in size since prior exam. In particular the pelvic sidewall lymphadenopathy measures 2.8 cm on the left and 2.2 cm on the right. IMPRESSION: Extensive bilateral iliac chain lymph nodes with smaller retroperitoneal and periaortic lymph nodes. Findings are concerning for the lymphoma versus metastatic disease. Many of these lesions would be amenable to percutaneous tissue sampling Nondilated loops of small bowel as described above. Findings may represent enteritis in the appropriate clinical setting. Electronically signed by: Reuben Lira MD 08/20/23 04:37 AM Discharge Plan Visit Data Chief Complaint: Abdominal Pain Stated Complaint: ABDOMINAL PAIN, VOMITING ED Provider: Homa Victor Discharge Problem: Enteritis, CLL (chronic lymphocytic leukemia) Patient Disposition: Admitted As Inpatient Discharge Instructions Interventions: ED Discharge Assessment Last Done: 08/20/23 06:22
[2023-08-20 01:55] LABS: Hematocrit (blood only) 28.6 % (37.0-47.0); Hemoglobin 8.5 g/dl (12.0-16.0); Mean Corpuscular Hemoglobin 16.3 pg (25.0-34.0); Mean Corpuscular Hgb Conc 29.7 g/dL (32.0-36.0); Mean Corpuscular Volume 54.8 fL (80.0-100.0); Platelet Count 144 K/uL (130-400); RDW Coefficient of Variation 20.4 % (11.5-14.5); RDW Standard Deviation 36.7 fL (36.4-46.3); Red Blood Count 5.22 M/uL (4.20-5.40)
[2023-08-20] MEDS: CYCLOBENZAPRINE HCL 10 MG TAB PO STA (01:59)
[2023-08-20] MEDS: HYDROmorphone INJ 1 MG/ML SYRINGE IV STA ×2 (01:59→03:11)
[2023-08-20] MEDS: SODIUM CHLORIDE 0.9% 1,000 ML IV ONE (02:03)
[2023-08-20 02:10] LABS: ALC (manual) 25.19 K/uL (1.2-3.4); ANC (manual) 0.26 K/uL (1.4-6.5); Anisocytosis Present; Hypochromasia Present; Lymphocytes # (manual) 25.19 K/uL (1.2-3.4); Lymphocytes % (manual) 98 %; Microcytosis Present; Monocytes # (manual) 0.26 K/uL (0.11-0.59); Monocytes % (manual) 1 %; Neutrophils # (manual) 0.26 K/uL (1.40-6.50); Neutrophils % (manual) 1 %; Ovalocytes 1+; Smudge Cells Present; Tear Drop Cells 1+
[2023-08-20] MEDS ORDERED: PROMETHAZINE HCL 25 MG in SODIUM CHLORIDE 0.9% 50 ML IV STA (03:04)
[2023-08-20 03:14] LABS: Appearance Urine Clear (Clear); Bilirubin Urine Negative (Negative); Blood Urine Negative (Negative); Color Urine Yellow; Glucose Urine UA Negative (Negative); Ketones Urine Negative (Negative); Leukocyte Esterase Urine Negative (Negative); Nitrite Urine Negative (Negative); Protein Urine Negative (Negative); Specific Gravity Urine 1.019 (1.000-1.030); Urobilinogen Urine Negative (Negative); pH Urine 7.5 (4.5-7.5)
[2023-08-20] MEDS: PROMETHAZINE 25 MG/51 ML BAG IV STA (03:55)
[2023-08-20] MEDS ORDERED: VANCOMYCIN CONSULT ACTIVE PRN (04:20)
--- NOTE | 2023-08-20 04:38 | CT Scan Report ---
Exam(s): CT ABDOMEN + PELVIS With Contrast IV Amt: 93 ML OPTIRAY 320 EXAM: CT Abdomen and Pelvis With Intravenous Contrast CLINICAL HISTORY: Reason for exam: leukemia, abd pain w/ n/v. TECHNIQUE: Axial computed tomography images of the abdomen and pelvis with intravenous contrast. Automated exposure control was utilized for the study. A dose lowering technique was utilized adhering to the principles of ALARA. CONTRAST: Patient received 93 ML OPTIRAY 320 of IV contrast COMPARISON: 01/27/2019 FINDINGS: Lung bases: Unremarkable. No mass. No consolidation. ABDOMEN: Liver: Mild expected intrahepatic biliary ductal dilatation. Gallbladder and bile ducts: Gallbladder surgically absent. Pancreas: Unremarkable. No mass. No ductal dilation. Spleen: Splenomegaly. Adrenals: Unremarkable. No mass. Kidneys and ureters: Dilated extrarenal pelves bilaterally. Stomach and bowel: There are number of fluid-filled loops of small bowel within the left upper quadrant extending into the midline pelvis which are nonpathologically enlarged. Trace of associated inflammatory changes and fluid present. No mucosal thickening. PELVIS: Appendix: No findings to suggest acute appendicitis. Bladder: Urinary bladder is markedly distended. Reproductive: Unremarkable as visualized. ABDOMEN and PELVIS: Intraperitoneal space: Unremarkable. No free air. No significant fluid collection. Bones/joints: No acute fracture. No dislocation. Soft tissues: Unremarkable. Vasculature: Unremarkable. No abdominal aortic aneurysm. Lymph nodes: Extensive bilateral iliac chain retroperitoneal and pelvic side wall lymphadenopathy which has significantly increased in size since prior exam. In particular the pelvic sidewall lymphadenopathy measures 2.8 cm on the left and 2.2 cm on the right. IMPRESSION: Extensive bilateral iliac chain lymph nodes with smaller retroperitoneal and periaortic lymph nodes. Findings are concerning for the lymphoma versus metastatic disease. Many of these lesions would be amenable to percutaneous tissue sampling Nondilated loops of small bowel as described above. Findings may represent enteritis in the appropriate clinical setting. Electronically signed by: Reuben Lira MD 08/20/23 04:37 AM
[2023-08-20] MEDS: cefTRIAXone SODIUM 2,000 MG/50 ML BAG IV STA (05:03)
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
[2023-08-20] MEDS: VANCOMYCIN HCL 1,750 MG in SODIUM CHLORIDE 0.9% 500 ML IV ONE (05:35)
[2023-08-20] MEDS ORDERED: METOPROLOL SUCC 25MG EXT REL TAB PO PRN (06:21)
[2023-08-20] MEDS ORDERED: oxyCODONE HCL IR 5 MG TAB (IMMEDIATE RELEASE) PO PRN (06:21)
[2023-08-20] MEDS ORDERED: METOPROLOL TARTRATE 50 MG TAB PO PRN (06:21)
[2023-08-20] MEDS ORDERED: HYDROmorphone INJ 0.5 MG/0.5 ML SYR IV PRN (06:31)
[2023-08-20] MEDS ORDERED: ZOLPIDEM TARTRATE 5 MG TAB PO PRN (06:39)
[2023-08-20] MEDS: HYDROmorphone INJ 0.5 MG/0.5 ML SYR IV STA (06:41)
[2023-08-20] MEDS: FAMOTIDINE 20MG IV PUSH 20 MG/5 ML SYR IV STA (06:44)
[2023-08-20] MEDS ORDERED: ARTIFICIAL TEARS OP PRN (06:44)
[2023-08-20] MEDS: SODIUM CHLORIDE 0.9% 1,000 ML IV SCH (06:46)
[2023-08-20] MEDS ORDERED: MoRPHine SULFATE CR 15 MG TABCR PO PRN (06:51)
[2023-08-20 07:35] LABS: Adenovirus F 40/41 PCR Not Detected (NotDetected); Astrovirus PCR Not Detected (NotDetected); Campylobacter PCR Not Detected (NotDetected); Cryptosporidium PCR Not Detected (NotDetected); Cyclospora cayetanensis PCR Not Detected (NotDetected); Entamoeba histolytica PCR Not Detected (NotDetected); Enteroaggregative E.coli(EAEC) Not Detected (NotDetected); Enteropathogenic E.coli (EPEC) Not Detected (NotDetected); Enterotoxigenic E.coli (ETEC) Not Detected (NotDetected); Giardia lamblia PCR Not Detected (NotDetected); Norovirus GI/GII PCR Not Detected (NotDetected); Plesiomonas shigelloides PCR Not Detected (NotDetected); Rotavirus A PCR Not Detected (NotDetected); Salmonella PCR Not Detected (NotDetected); Sapovirus PCR Not Detected (NotDetected); Shiga-like Toxin E.coli (STEC) Not Detected (NotDetected); Shigella/Enteroinvasive E.coli Not Detected (NotDetected); Vibrio cholerae PCR Not Detected (NotDetected); Vibrio species PCR Not Detected (NotDetected); Yersinia enterocolitica PCR Not Detected (NotDetected)
--- NOTE | 2023-08-20 08:31 | Pharmacy Report ---
Pharmacy PK ABX Note - Date of Service August 20, 2023 - Assessment and Plan Assessment 68 year old F receiving IV Vancomycin + Flagyl + Ceftriaxone for empiric treatment of gastroenteritis, PMH CLL, Sjogren's. Records show she started a 10 day course of amoxicillin on 08/13. CT A/P with evidence of enteritis. Pertinent microbiologic data includes: Blood cultures pending, stool BioFire negative. Day 1 of antimicrobial therapy. Plan Vancomycin * Loading dose: 1750 mg IV x 1 * Maintenance dose: 1500 mg IV every 24 hours * Regimen is predicted to achieve target AUC/ALLA of 400-600 mg/L.hr * Level to be ordered if Vancomycin continued past 48 hours * Pharmacy has transitioned to AUC monitoring for vancomycin. AUC/ALLA is the preferred PK/PD target and is associated with decreased risk of nephrotoxicity compared to traditional trough targets. Flagyl 500mg IV Q8H Ceftriaxone 2000mg IV Q24H Pharmacy will continue to follow and will adjust dose/frequency as necessary. Thank you.
[2023-08-20] MEDS: metroNIDAZOLE 500 MG/100 ML BAG IV SCH (08:34)
[2023-08-20] MEDS: LEVOTHYROXINE SODIUM 175 MCG TABLET PO SCH (08:34)
[2023-08-20] MEDS: ondansetron HCL 6 MG in DEXTROSE 5% 50 ML IV PRN (08:51)
[2023-08-20] MEDS: HEPARIN SOD 5,000 UNIT/0.5 ML VIAL SQ SCH (09:15)
[2023-08-20] MEDS: PANTOprazole 40 MG TAB PO SCH (09:16)
[2023-08-20] MEDS: KETOROLAC 0.5% OP SOLN 5 ML BTL OPB SCH (09:16)
[2023-08-20] MEDS: CYCLOBENZAPRINE HCL 10 MG TAB PO SCH (09:19)
[2023-08-20] MEDS: MECLIZINE HCL 25 MG TAB PO SCH (09:19)
[2023-08-20] MEDS: CETIRIZINE HCL 10 MG TABLET PO SCH (09:19)
[2023-08-20] MEDS: METOPROLOL SUCC 50MG EXT REL TAB PO SCH ×2 (09:20→20:36)
[2023-08-20] MEDS: PILOCARPINE HCL 5 MG TABLET PO SCH (09:20)
[2023-08-20] MEDS: NABUMETONE 500 MG TABLET PO SCH (09:20)
[2023-08-20] MEDS: TIMOLOL MALEATE 0.5% OP SOLN 5 ML BTL OP SCH (09:21)
[2023-08-20] MEDS: POTASSIUM CHLORIDE CRTAB 20 MEQ TABCR PO SCH (09:22)
[2023-08-20] MEDS: FUROSEMIDE 20 MG TAB PO SCH (09:23)
[2023-08-20] MEDS: prednisoLONE acetate 1% OP SUSP 5 ML BTL OP SCH (09:25)
[2023-08-20] MEDS: OFLOXACIN 0.3% 75 DROPS/5 ML BTL OP SCH (09:26)
[2023-08-20] MEDS: HYDROmorphone INJ 1 MG/ML SYRINGE IV PRN (10:43)
--- NOTE | 2023-08-20 11:53 | Electrocardiogram Report ---
Test Reason : Blood Pressure : / mmHG Vent. Rate : 102 BPM Atrial Rate : 102 BPM P-R Int : 184 ms QRS Dur : 082 ms QT Int : 346 ms P-R-T Axes : 022 004 043 degrees QTc Int : 450 ms Sinus tachycardia Nonspecific ST and T wave abnormality Abnormal ECG When compared with ECG of 06-JUL-2021 14:36, Nonspecific T wave abnormality, worse in Inferior leads Nonspecific T wave abnormality now evident in Lateral leads Confirmed by Mello Luna ([id number]) on 08/20/2023 11:53:16 AM Referred By: REFERRED SELF Confirmed By:Tian Luna
[2023-08-20] MEDS: PROMETHAZINE HCL 6.25 MG in SODIUM CHLORIDE 0.9% 50 ML IV PRN (13:48)
[2023-08-20] MEDS: BUTALBITAL/ACETAMIN/CAFFEINE TAB PO PRN (13:48)
[2023-08-20] MEDS: VANCOMYCIN HCL 1,500 MG in SODIUM CHLORIDE 0.9% 500 ML IV SCH (15:21)
--- NOTE | 2023-08-20 19:51 | Billing Data ---
Date of Service August 20, 2023 Coding Level of Care Code 09640 INT INP/OBS CARE
[2023-08-20] MEDS: FLUTICASONE PROPIONATE NA SPR 16 GM BTL SCH (20:39)
[2023-08-20] MEDS: FAMOTIDINE 20MG IV PUSH 20 MG/5 ML SYR IV SCH (21:49)
--- OUTSIDE RECORDS SUMMARY | 2023-08-20 23:56 | External Medical Summary | Summary of Care ---
Author Name Unknown Organization [facility] Address [address] [place] [address] Phone [phone] Care Team Providers [facility] Name Role Phone Unavailable Primary Care Provider Unavailabl e Reason for Visit * Reason Comments Follow Up Encounter Details Date Type Department Care Team (Late st Contact Info) Description 08/18/2023 9:30 AM EDT Office Visit Ophthalmology, [facility] [address] [place] [address] Chris Benson T, DO [address] [place], [place] [id number] Acquired stenosis of both nasolacrimal ducts* Allergies Active Allergy Reactions Criticality Noted Date Comments Adhesive Tape 06/16/2008 Aspirin 02/26/2012 "bruising all over body" Bacitracin 02/26/2012 "severe skin rash, welts, irritation, caused infections around open cuts or wounds" Bactrim Rash 07/28/2012 Bee Stings High 06/16/2008 Dicyclomine Hcl Rash 08/25/2017 Compazine Other (Please comment) 06/16/2008 Severe/extreme muscle contractions, eyes rolling back Dicyclomine Hcl 01/11/2013 Itch, burn -open areas Doxycycline Hives 06/27/2021 Reported by patient Environmental 06/16/2008 Certain metals/alloys such as surgical latesha, root canal posts, hypoallergenic earrings Certain perfumes & lotions, certain 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 worker and sprays Ibuprofen 06/16/2008 bruising Lamotrigine Rash 06/16/2008 Welts all over body Lamotrigine 02/26/2012 "rash and welts all over body" Lavender Oil 08/25/2017 Loteprednol Etabonate 02/26/2012 "pain from irritation and feeling of something in my eye" Pregabalin Other (Please comment) 06/16/2008 Swelling of hands and feet, more dry mouth added to severe Sjogren's Mupirocin Rash 08/25/2017 Neomycin-Bacitracin Zn-Polymyx 01/15/2010 Nsaids 06/16/2008 bruising Aminobenzoic Acid 06/16/2008 Patchouli Oil 08/25/2017 Polymyxin B High 02/04/2023 Other Reaction(s): RASH/SWELLING/WELTS Bacitracin-Polymyxin B 06/16/2008 Soap & Cleansers 01/15/2010 "ivory soap" Sulfamethoxazole High 02/04/2023 Other Reaction(s): RASH Tetracycline Base Hives,Rash 06/16/2008 Topiramate Rash 06/16/2008 Trimethobenzamide Hcl High 02/04/2023 Other Reaction(s): MUSCLE CONTRACTION Trimethoprim High 11/20/2022 Other Reaction(s): RASH Bromfenac Sodium 02/26/2012 "eyelid swelling and swelling in skin around eyes, burning and overall eye pain" documented as of this encounter (statuses as of 08/18/2023) Medications Medication Sig Dispensed Refills Start Date End Date Status FLEXERIL 10 MG PO TABS 1 tablet 3 times daily 0 Active RELAFEN 750 MG PO TABS 2 times daily for 3 weeks per month 0 Active ZYRTEC 10 MG PO TABS 1 tablet daily 0 Active DIPHENHYDRAMINE HCL 50 MG PO CAPS one by mouth as needed 0 Active NASACORT AQ 55 MCG/ACT NA AERS Administer into nostril at bedtime. 0 Active ACYCLOVIR 400 MG PO TABS Take by mouth. 0 12/16/2011 Active POTASSIUM CHLORIDE CR 10 MEQ PO CPCR Take by mouth 2 times a day. 0 02/14/2012 Active LASIX 40 MG PO TABS 1 and 1/2 tablets by mouth daily in the morning 0 Active KETOROLAC TROMETHAMINE 10 MG PO TABS Toradol 10mg tablet three times a day for 1 week per month (3 weeks on Relafen then back to Toradol for 1 week) 0 Active ZOFRAN 8 MG PO TABS one by mouth every 8 hours as needed for nausea form migraines, cancer treatments (Lcan take in place of or alternate with Phenergan) 0 Active PROMETHAZINE HCL 25 MG PO TABS one by mouth every 4 hours as needed for nausea from migraines, cancer treatments, etc can alternate with Zofran or take in place of 0 Active FIORICET 50-325-40 MG PO TABS 1 or 2 tablets by mouth every 4 hours as needed for tension headaches 0 Active IMITREX 100 MG PO TABS one by mouth as needed for migraines 0 Active AMBIEN 10 MG PO TABS take one by mouth 1/2 hour to 1 hour before bed every night 0 Active OXYCODONE HCL 20 MG PO TABS every 4 hours as needed 0 Active silver sulfadiazine (SILVADENE) 1 % cream As needed 0 09/05/2014 Active metoprolol tartrate (LOPRESSOR) 50 MG Tablet Take 1 Tablet by mouth as needed. Up to 3 times a day as needed for tachycardia 0 08/01/2015 Active meclizine (ANTIVERT) 25 MG Tablet Take 1 Tablet by mouth in the morning and 1 Tablet at noon and 1 Tablet in the evening and 1 Tablet before bedtime. 5 08/06/2017 Active econazole nitrate (SPECTAZOLE) 1 % cream 0 02/16/2018 Active FREMANEZUMAB-VFRM 225 MG/1.5ML SOSY Inject 1.5 mL under the skin Every Month. 0 11/30/2018 Active prednisolone acetate (PRED FORTE) 1 % ophthalmic suspension Instill 1 Drop into both eyes 4 times a day. 10 mL 3 01/19/2019 Active olopatadine (PATANOL) 0.1 % ophthalmic solution Instill 1 Drop into both eyes 2 times a day. 5 mL 6 06/30/2019 Active Morphine Sulfate ER 30 MG Oral Tablet Extended Release (Ms Contin) Take 1 Tablet by mouth in the morning and 1 Tablet before bedtime. 0 05/22/2021 Active Metoprolol Succinate ER 100 MG Oral Tablet Extended Release 24 Hour (toPROL XL) TAKE 1 AND 1/2 TABLET BY MOUTH IN THE MORNING AND 1 TAB IN THE EVENING 0 03/25/2022 Active Metoprolol Succinate ER 25 MG Oral Tablet Extended Release 24 Hour (toPROL XL) Take 1 Tablet by mouth as needed. 0 05/22/2022 Active Ketorolac Tromethamine 0.5 % Ophthalmic Solution Instill 1 Drop into both eyes in the morning and 1 Drop at noon and 1 Drop in the evening and 1 Drop before bedtime. 10 mL 3 08/05/2022 Active Refresh Optive PF 0.5-0.9 % Ophthalmic Solution (carboxymethylcell- glycerin PF) Instill 1 Drop into both eyes every hour. 0 Active Synthroid 175 MCG Oral Tablet TAKE ONE TABLET BY MOUTH DAILY DIRECTED. BRAND NECESSARY 0 08/12/2022 Active Timolol Maleate (Once-Daily) 0.5 % Ophthalmic Solution (Istalol)Indication s:Primary open angle glaucoma of both eyes, unspecified glaucoma stage Instill 1 Drop into both eyes in the morning. 5 mL 6 10/31/2022 Active Additional Information Patient taking differently:1 Drop Both eyes Daily(AM),Patient using twice a day both eyes, Reported on 11/04/2022 Pantoprazole Sodium 40 MG Oral Tablet Delayed Release (Protonix) TAKE 1 TABLET BY MOUTH ONCE DAILY IN THE MORNING 180 Tablet 1 06/16/2023 Active Ofloxacin 0.3 % Ophthalmic Solution (Ocuflox) Instill 1 Drop into both eyes in the morning and 1 Drop at noon and 1 Drop in the evening and 1 Drop before bedtime. 5 mL 3 06/16/2023 Active Nitroglycerin 0.4 MG/SPRAY Translingual Solution (Nitrolingual) Place 1 [place] under the tongue as needed for Pain, Chest. 0 Active Pilocarpine HCl 5 MG Oral Tablet (Salagen) TAKE 1 TABLET IN THE MORNING, NOON AND BEFORE BEDTIME 90 Tablet 11 07/11/2023 Active Amoxicillin 500 MG Oral Capsule (Amoxil) Take 1 Capsule by mouth in the morning and 1 Capsule at noon and 1 Capsule before bedtime. 30 Capsule 0 07/24/2023 Active Acetaminophen 325 MG Oral Tablet (Tylenol) Take 2 Tablets by mouth. Do not start before August 29, 2023. 0 08/29/2023 08/29/2023 Active Betamethasone Dipropionate 0.05 % External Ointment Start: 02/04/23 16:03:00 EDT, 1 appl, topical, bid, Disp# 45 g, Refills: 3, to hands BID, Pharmacy: [facility] 0 02/04/2023 Active Clobetasol Propionate 0.05 % External Ointment (Temovate) Start: 02/04/23 13:55:00 EDT, 1 appl, topical, Daily, Disp# 45 g, Refills: 3, apply to hands q, Pharmacy: [facility] 0 02/04/2023 Active Lomotil 2.5-0.025 MG Oral Tablet Take 2.5 mg by mouth. 0 05/29/2023 Active methylPREDNISolone Sodium Succ 2000 MG Injection Solution Reconstituted (SOLU-Medrol) Administer 40 mg intravenously. Do not start before August 29, 2023. 0 08/29/2023 08/29/2023 Active predniSONE 10 MG Oral Tablet (Deltasone) 1 Tablet. 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 CLL (chronic lymphocytic leukemia) 12/06/2009 Dacryocystitis 03/05/2009 Sicca syndrome Other thalassemia Malignant neoplasm of thyroid gland Osteoarthrosis Ankylosing spondylitis Staphyloma Overview: both eyes Blindness, one eye Overview: left eye 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 Sjogren's disease documented as of this encounter (statuses as of 08/18/2023) Resolved Problems Problem Noted Date Diagnosed Date Resolved Date Nasal septal deformity 08/14/201804/24 documented as of this encounter (statuses as of 08/18/2023) Social History Tobacco Use Types Packs/Day Years Used Date Smoking Tobacco: Never Smokeless Tobacco: Never Alcohol Use Standard Drinks/Week Comments No 0 (1 standard drink = 0.6 oz pur e alcohol) Sex and Gender Information Value Date Recorded Sex Assigned at Not on file Gender Identity Not on file Sexual Orientation Not on file Job Start Date Occupation Industry Not on file Not on file Not on file documented as of this encounter Progress Notes * Marcelino Chris Mer, - 08/18/2023 9:32 AM EDT Diana Pan is a 68 year old female who returns today for irrigation. 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 On vynclasta. Right eye miserable. Allergies. Eyes dry. Heart arrhythmia. Interval changein labs and imaging. 11q deletion and Fish studies bad. Progressive lymphoma reported. Allergies now an issue. Eyes terrible. Recent amoxil Rx. New large LN right occiput awaiting Bx Ophthalmology Past History: amblyopia right eye, glasses AACG left eye s/p PI. Ophthalmology ROS: no recent significant change in vision, no diplopia and Positive for eye discharge both eyes, eye pain both eyes and redness both eyes Current Ophthalmic Medications:, istalol and both eyes patanol,acular moxifloxacin QID Current Outpatient Medications Medication Sig Dispense Refill prednisolone acetate (PRED FORTE) 1 % ophthalmic suspension Instill 1 Drop into both eyes 4 times aday. 10 mL 3 olopatadine (PATANOL) 0.1 % ophthalmic solution Instill 1 Drop into both eyes 2 times a day. 5 mL 6 Ketorolac Tromethamine 0.5 % Ophthalmic Solution Instill 1 Drop into both eyes in the morning and 1Drop at noon and 1 Drop in the evening and 1 Drop before bedtime. 10 mL 3 Refresh Optive PF 0.5-0.9 % Ophthalmic Solution (carboxymethylcell-glycerin PF) Instill 1 Drop intoboth eyes every hour. Timolol Maleate (Once-Daily) 0.5 % Ophthalmic Solution (Istalol) Instill 1 Drop into both eyes in the morning. (Patient taking differently: Instill 1 Drop into both eyes in the morning. Patient usingtwice a day both eyes.) 5 mL 6 Ofloxacin 0.3 % Ophthalmic Solution (Ocuflox) Instill 1 Drop into both eyes in the morning and 1 Drop at noon and 1 Drop in the evening and 1 Drop before bedtime. 5 mL 3 FLEXERIL 10 MG PO TABS 1 tablet 3 times daily RELAFEN 750 MG PO TABS 2 times daily for 3 weeks per month ZYRTEC 10 MG PO TABS 1 tablet daily DIPHENHYDRAMINE HCL 50 MG PO CAPS one by mouth as needed NASACORT AQ 55 MCG/ACT NA AERS Administer into nostril at bedtime. ACYCLOVIR 400 MG PO TABS Take by mouth. POTASSIUM CHLORIDE CR 10 MEQ PO CPCR Take by mouth 2 times a day. LASIX 40 MG PO TABS 1 and 1/2 tablets by mouth daily in the morning KETOROLAC TROMETHAMINE 10 MG PO TABS Toradol 10mg tablet three times a day for 1 week per month (3 weeks on Relafen then back to Toradol for 1 week) ZOFRAN 8 MG PO TABS one by mouth every 8 hours as needed for nausea form migraines, cancer treatments (Lcan take in place of or alternate with Phenergan) PROMETHAZINE HCL 25 MG PO TABS one by mouth every 4 hours as needed for nausea from migraines, cancer treatments, etc can alternate with Zofran or take in place of FIORICET 50-325-40 MG PO TABS 1 or 2 tablets by mouth every 4 hours as needed for tension headaches IMITREX 100 MG PO TABS one by mouth as needed for migraines AMBIEN 10 MG PO TABS take one by mouth 1/2 hour to 1 hour before bed every night OXYCODONE HCL 20 MG PO TABS every 4 hours as needed silver sulfadiazine (SILVADENE) 1 % cream As needed metoprolol tartrate (LOPRESSOR) 50 MG Tablet Take 1 Tablet by mouth as needed. Up to 3 times a day as needed for tachycardia meclizine (ANTIVERT) 25 MG Tablet Take 1 Tablet by mouth in the morning and 1 Tablet at noon and 1 Tablet in the evening and 1 Tablet before bedtime. 5 econazole nitrate (SPECTAZOLE) 1 % cream FREMANEZUMAB-VFRM 225 MG/1.5ML SOSY Inject 1.5 mL under the skin Every Month. Morphine Sulfate ER 30 MG Oral Tablet Extended Release (Ms Contin) Take 1 Tablet by mouth in the morning and 1 Tablet before bedtime. Metoprolol Succinate ER 100 MG Oral Tablet Extended Release 24 Hour (toPROL XL) TAKE 1 AND 1/2 TABLET BY MOUTH IN THE MORNING AND 1 TAB IN THE EVENING Metoprolol Succinate ER 25 MG Oral Tablet Extended Release 24 Hour (toPROL XL) Take 1 Tablet by mouth as needed. Synthroid 175 MCG Oral Tablet TAKE ONE TABLET BY MOUTH DAILY DIRECTED. BRAND NECESSARY Pantoprazole Sodium 40 MG Oral Tablet Delayed Release (Protonix) TAKE 1 TABLET BY MOUTH ONCE DAILY IN THE MORNING 180 Tablet 1 Nitroglycerin 0.4 MG/SPRAY Translingual Solution (Nitrolingual) Place 1 [place] under the tongue as needed for Pain, Chest. Pilocarpine HCl 5 MG Oral Tablet (Salagen) TAKE 1 TABLET IN THE MORNING, NOON AND BEFORE BEDTIME 90Tablet 11 Amoxicillin 500 MG Oral Capsule (Amoxil) Take 1 Capsule by mouth in the morning and 1 Capsule at noon and 1 Capsule before bedtime. 30 Capsule 0 [START ON 08/29/2023] Acetaminophen 325 MG Oral Tablet (Tylenol) Take 2 Tablets by mouth. Do not start before August 29, 2023. Betamethasone Dipropionate 0.05 % External Ointment Start: 02/04/23 16:03:00 EDT, 1 appl, topical, bid, Disp# 45 g, Refills: 3, to hands BID, Pharmacy: [facility] Clobetasol Propionate 0.05 % External Ointment (Temovate) Start: 02/04/23 13:55:00 EDT, 1 appl, topical, Daily, Disp# 45 g, Refills: 3, apply to hands qhs, Pharmacy: [facility] Lomotil 2.5-0.025 MG Oral Tablet Take 2.5 mg by mouth. [START ON 08/29/2023] methylPREDNISolone Sodium Succ 2000 MG Injection Solution Reconstituted (SOLU-Medrol) Administer 40 mg intravenously. Do not start before August 29, 2023. predniSONE 10 MG Oral Tablet (Deltasone) 1 Tablet. No current facility-administered medications for this visit. Base Eye Exam Neuro/Psych Oriented x3: Yes Mood/Affect: Normal Slit Lamp and Fundus Exam Slit Lamp Exam Right Left Lids/Lashes laxity, foamy tears, 2+ Blepharitis laxity, foamy tears., 1+ Blepharitis Conjunctiva/Sclera White and quiet, inferior fornix lash removed White and quiet Cornea Clear no epi defect Clear no epi defect Anterior Chamber Deep and quiet Deep and quiet Iris Round and reactive Round and reactive Lens PCIOL PCIOL, retained cortex inferiorly PCO inferior temporal cannot see Yag cap Office Procedure Note: Name: Diana Pan MRD: [id number] DATE: 08/18/2023 PREOP DX: conjunctivitis both eyes POSTOP DX: SAME Procedure: Punctal dilation with irrigation Both eyes EBL: none Drains: none IVF: none URine: none TECHNIQUE: After informed consent was obtained from the patient. Alcaine was instilled in the righteye and a punctal dilater was passed into the inferior puncta with initial resistance that was overcome with gentle pressure. The dilator was then directed medially and superiorly. The dilator was removed and a lacrimal cannula was placed and the cannilicular system was irrigated with EYE STREAM. complete regurge was identified. Able to irrigate to complete clear fluid. The patient tolerated the procedure well without complication. IMPRESSION: White and quiet eye left eye, lower eyelid possible stye developing vs superficial abrasion. On oral ABx and Acyclovir. Movement fine. Conjunctivitis OU + MRSA sacs irrigated clear NLDO stable both eyes with chronic clear mucus Dry eyes Left eye vitreal haze stable Blepharitis OU PLAN: 1. Irrigated to clear easy to flush 2. acular TID to QID and lid hygiene ofloxacin gtts QID 3. reassurance no epi defects 4. 1 week return sooner PRN Chris Benson DO documented in this encounter Nursing Notes * Jelly Lay TECH - 08/18/2023 9:26 AM EDT Diana Pan is a 68 year old female who presents for Follow up. Last Visit: 08/04/2023 (in office), Visit date not found (telemedicine) She currently states that her eyes have been itchy. Left seems to be worse than the right. Are you diabetic? No Current Ophthalmic Medications: Ketorolac 0.5% op soln 1 gtt both eyes QID Ofloxacin 0.30% op soln 1 gtt both eyes QID Patanol 1 gtt both eyes BID PredForte 1 % 1 gtt both eyes QID Refresh Timolol 1 gtt both eyes BID VA, IOP, current eyeglass Rx, and pupil check and dilation if needed can be found in ophth exam. documented in this encounter Plan of Treatment Upcoming Encounters Date Type Department Care Team (Latest Contact Info) Description 08/25/2023 10:10 AM EDT Office Visit [facility], [facility] [address] [facility] [place] [address] Chris Benson, DO [address] [facility] [place] [address] 09/03/2023 10:10 AM EDT Office Visit Ophthalmology, [facility] [address] [facility] [place] [address] Chris Benson, DO [address] [facility] [place] [address] 09/08/2023 9:30 AM EDT Office Visit Ophthalmology, [facility] [address] [place] [address] Chris Benson, DO [address] [facility] [place] [address] 11/27/2023 2:00 PM EDT Hospital Encounter ENDO [facility], Endoscopy Room [facility] [address] [place] [phone] Serena Soto, DO [address] [place] [address] 11/27/2023 2:00 PM EDT - 11/27/2023 2:30 PM EDT Surgery ENDO [facility], Endoscopy Room [facility] [address] [place] [phone] Serena Soto, DO [address] [place] [address] COLONOSCOPY FLEXIBLE PROXIMAL DIAGNOSTIC 03/10/2024 10:00 AM EST Office Visit Rheumatology [facility] [address] [place], [place] [address] Cyrus Ferreira MD [address] [place], [place] [address] Scheduled Procedures Name Priority Associated Diagnoses Date/Ti me COLONOSCOPY FLEXIBLE PROXIMAL DIAGNOSTIC Recall Diarrhea History of colon polyps 11/27/2023 2:00 PM EDT Health Maintenance Due Date Last Done Comments DXA Scan 1956 Lipid Panel 1956 COVID-19 Vaccine (#1) 1961 Pneumococcal Vaccine: 65+ Years (1 of 2 - PCV) 1962 Depression Screening 1968 Hepatitis C Screening 1974 Zoster Vaccines (1 of 2) 1975 Mammogram 1996 Cologuard 2001 Colonoscopy 2001 Colorectal Cancer Screening 2001 Fecal Occult Blood Test 2001 Sigmoidoscopy 2001 DTaP,Tdap,and Td Vaccines (1 - Tdap) 11/17/2003 11/16/2003 TSH 09/11/2022 09/11/2021, 02/05, 11/03/1996 Influenza Vaccine (FLU shot) (Season Ended) 2023 Diabetes Screening 12/25/2025 12/25/2022, 0 09/11/2021, 02/14/2021, Additional history exists GARDASIL-HPV IMMUNIZATION SERIES Aged Out No longer eligible based on patient's age to complete this topic Hepatitis B Aged Out No longer eligi ble based on patient's age to complete this topic MENINGOCOCCAL (MENACTRA/MENVEO) Aged Out No longer eligible based on patient's age to complete this topic documented as of this encounter Medical Devices Not on filedocumented as of this encounter Visit Diagnoses Diagnosis Acquired stenosis of both nasolacrimal ducts- Primary Stenosis of nasolacrimal duct, acquired Diarrhea History of colon polyps Personal history of colonic polyps documented in this encounter
--- OUTSIDE RECORDS SUMMARY | 2023-08-20 23:56 | External Medical Summary | Summary of Care ---
Author Name Unknown Organization [facility] Address [address] [place] [address] Phone [phone] Care Team Providers Care Social Worker Clinical Name Role Phone Unavailable Primary Care Provider Unavailabl e Reason for Visit * Reason Comments Rheum Follow Up Follow up - and dustin dowell Encounter Details Date Type Department Care Team (Latest Contact Info) Description 08/01/2023 10:40 AM EDT Office Visit Rheumatology [place] [address] [employer] [place] [address] Cyrus Ferreira MD [facility] [employer] [place] [address] Ankylosing spondylitis of multiple sites in spine ([facility])*; Sjogren's syndrome with keratoconjunctivitis sicca ([facility]); CLL (chronic lymphocytic leukemia) ([facility]); 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 0 Active Synthroid 175 MCG Oral Tablet TAKE ONE TABLET BY MOUTH DAILY DIRECTED. BRAND NECESSARY 0 08/12/2022 Active Timolol Maleate (Once-Daily) 0.5 % Ophthalmic Solution (Istalol)Indicatio ns:Primary open angle glaucoma of both eyes, unspecified [...] 0.4 MG/SPRAY Translingual Solution (Nitrolingual) Place 1 [place] under the tongue as needed for Pain, [...] Tablet (Tylenol) Take 2 Tablets by mouth. 0 08/01/2023 08/01/19 24 Active Acetaminophen 325 MG Oral Tablet (Tylenol) Take 2 Tablets by mouth. Do not start before August 29, 2023. 0 08/29/2023 08/29/19 Active Betamethasone Dipropionate 0.05 % External Ointment Start: 02/04/23 16:03:00 EDT, 1 appl, topical, bid, Disp# 45 g, Refills: 3, to hands BID, Pharmacy: [facility] 0 02/04/2023 Active Clobetasol Propionate 0.05 % External Ointment (Temovate) Start: 02/04/23 13:55:00 EDT, 1 appl, topical, Daily, Disp# 45 g, Refills: 3, apply to hands qhs, Pharmacy: [facility] 0 02/04/2023 Active Lomotil 2.5-0.025 MG Oral Tablet Take 2.5 mg by mouth. 0 05/29/2023 Active methylPREDNISolone Sodium Succ 2000 MG Injection Solution Reconstituted (SOLU-Medrol) Administer 125 mg intravenously. 0 08/01/2023 08/01/19 Active methylPREDNISolone Sodium Succ 2000 MG Injection Solution Reconstituted (SOLU-Medrol) Administer 40 mg intravenously. Do not start before August 29, 2023. 0 08/29/2023 08/29/19 Active predniSONE 10 MG Oral Tablet (Deltasone) 1 Tablet. 0 02/10/2023 Active MYCELEX 10 MG MT TROC dissolve 1 miguel in [place] 5 x daily 0 08/01/19 Discontinu ed(Medicat ion List Clean Up) Venetoclax 100 MG Oral Tablet Take 2 Tablets by mouth in the morning. 0 08/01/19 Discontinu ed(Medicat ion List Clean Up) riTUXimab 500 MG/50ML Intravenous Solution (Rituxan) Administer 375 mg/m2 intravenously once. 0 08/01/19 Discontinu ed(Medicat ion List Clean Up) documented as of this encounter (statuses as of 08/01/2023) Active Problems Problem Noted Date Diagnosed Date [...] as of this encounter (statuses as of 08/01/2023) Resolved Problems Problem Noted Date Diagnosed Date Resolved Date Nasal septal deformity 08/14/201804/24 documented as of this encounter (statuses as of 08/01/2023) Social History Tobacco Use Types Packs/Day Years Used Date Smoking Tobacco: Never Smokeless Tobacco: Never Tobacco Cessation:Counseling Given: Not Answered Alcohol Use Standard Drinks/Week Comments No 0 (1 standard drink = 0.6 oz pur e alcohol) Sex and Gender Information Value Date Recorded Sex Assigned at Not on file Gender Identity Not on file Sexual Orientation Not on file Job Start Date Occupation Industry Not on file Not on file Not on file documented as of this encounter Last Filed Vital Signs Vital Sign Reading Time Taken Comments Blood Pressure - - Pulse - - Temperature 35.8 C (96.4 F) 08/01/2023 10:40 AM E DT Respiratory Rate - - Oxygen Saturation - - Inhaled Oxygen Concentration - - Weight 67.6 kg (149 lb) 08/01/2023 10:40 AM EDT Height - - Body Mass Index 28.15 07/07/2023 8:58 AM EDT documented in this encounter Progress Notes * Cyrus Ferreira MD - 08/01/2023 10:46 AM EDT Subjective: Patient seen today for further follow up evaluation of Sjogren's, ankylosing spondylitis. Since thelast visit she reports that her lymphoma is worse. She had recent egd/EUS with multiple biopsies that were all + - Chronic lymphocytic leukemia/small lymphocytic lymphoma . Her chemotherapy was not working - switched to rituxan in March and each dose caused severe symptoms. She reports that she has constant pain in her abd. She is vomiting bile even though she has no gall bladder. She is starting a newer chemotherapy pill soon. Seeing [facility]. She reports B12 and iron dropping. Awaiting colonoscopy. She did have gastritis on EGD. She is still taking relafen and toradol. She takes relafen for 3 weeks then toradol for 1 week. She has been on this for [address] Americo Pathak. She had x rays on Friday as well - spine and hips. She reports slippage of her spine, ddd. If stands for more than 10 min she will get numbness in her right upper thigh. Her dryness is reallybad as well. She gets nose bleeds several times a week. She is using refresh tears, gets tear ductsflushed weekly. Also using several other eye drops/. Also uses Biotene. Musculoskeletal ROS: . Abnormal: joint pain and back pain . AM stiffness (hours): 1 . Pain scale (0-10): 7 Other ROS: . Constitutional: fatigue, weight loss, sweats, and chills . Head normal . Eyes: dryness . Ears, nose, throat, mouth: dry mouth . Cardiovascular: chest pain . Respiratory: shortness of breath . Gastrointestinal: nausea, vomiting, and diarrhea . Genitourinary: normal . Skin: normal . Neurologic: numbness All other ros reviewed and negative Social History: Social History Tobacco Use Smoking status: Never Smokeless tobacco: Never Substance Use Topics Alcohol use: No Vaping/E-Cigarette Use Vaping/E-Cigarette Use Never User Vaping/E-Cigarette Substances Vaping/E-Cigarette Devices Current Outpatient Medications Medication Sig Dispense Refill FLEXERIL 10 MG PO TABS 1 tablet [...] 1.5 mL under the skin Every Month. prednisolone acetate (PRED FORTE) 1 % ophthalmic suspension Instill 1 Drop into both eyes 4 times aday. 10 mL 3 olopatadine (PATANOL) 0.1 % ophthalmic solution Instill 1 Drop into both eyes 2 times a day. 5 mL 6 Morphine Sulfate ER 30 MG Oral Tablet [...] Take 1 Tablet by mouth as needed. Ketorolac Tromethamine 0.5 % Ophthalmic Solution Instill 1 Drop into both eyes in the morning and 1Drop at noon and 1 Drop in the evening and 1 Drop before bedtime. 10 mL 3 Refresh Optive PF 0.5-0.9 % Ophthalmic Solution (carboxymethylcell-glycerin PF) Instill 1 Drop intoboth eyes every hour. Synthroid 175 MCG Oral Tablet TAKE ONE TABLET BY MOUTH DAILY DIRECTED. BRAND NECESSARY Timolol Maleate (Once-Daily) 0.5 % Ophthalmic Solution (Istalol) Instill 1 Drop into both eyes in the morning. (Patient taking differently: Instill 1 Drop into both eyes in the morning. Patient usingtwice a day both eyes.) 5 mL 6 Pantoprazole Sodium 40 MG Oral Tablet Delayed Release (Protonix) TAKE 1 TABLET BY MOUTH ONCE DAILY IN THE MORNING 180 Tablet 1 Ofloxacin 0.3 % Ophthalmic Solution (Ocuflox) Instill 1 Drop into both eyes in the morning and 1 Drop at noon and 1 Drop in the evening and 1 Drop before bedtime. 5 mL 3 Nitroglycerin 0.4 MG/SPRAY Translingual Solution (Nitrolingual) Place 1 [place] under the tongue as needed for Pain, Chest. Pilocarpine HCl 5 MG Oral Tablet (Salagen) TAKE 1 TABLET IN THE MORNING, NOON AND BEFORE BEDTIME 90Tablet 11 Amoxicillin 500 MG Oral Capsule (Amoxil) Take 1 Capsule by mouth in the morning and 1 Capsule at noon and 1 Capsule before bedtime. 30 Capsule 0 Acetaminophen 325 MG Oral Tablet (Tylenol) Take 2 Tablets by mouth. [START ON 08/29/2023] Acetaminophen 325 MG Oral Tablet (Tylenol) Take 2 Tablets by mouth. Do not start before August 29, 2023. Betamethasone Dipropionate 0.05 % External Ointment Start: 02/04/23 16:03:00 EDT, 1 appl, topical, bid, Disp# 45 g, Refills: 3, to hands BID, Pharmacy: [facility] Clobetasol Propionate 0.05 % External Ointment (Temovate) Start: 02/04/23 13:55:00 EDT, 1 appl, topical, Daily, Disp# 45 g, Refills: 3, apply to hands qhs, Pharmacy: [facility] Lomotil 2.5-0.025 MG Oral Tablet Take 2.5 mg by mouth. methylPREDNISolone Sodium Succ 2000 MG Injection Solution Reconstituted (SOLU- Medrol) Administer 125 mg intravenously. [START ON 08/29/2023] methylPREDNISolone Sodium Succ 2000 MG Injection Solution Reconstituted (SOLU-Medrol) Administer 40 mg intravenously. Do not start before August 29, 2023. predniSONE 10 MG Oral Tablet (Deltasone) 1 Tablet. No current facility-administered medications for this visit. Physical Exam: Temp 35.8 C (96.4 F) (Infrared ) | Wt 67.6 kg (149 lb) | BMI 28.15 kg/m | BSA 1.71 m General: alert, well nourished, and well developed HENT: normocephalic, external ears normal, no mucosal erythema, no mucosal edema, no oral ulcers, mildly dry oral mucosa noted Eye Exam: PERRL, EOMI, conjunctiva are pink and non-injected, sclera clear Neck: supple, no adenopathy, thyroid normal size, non-tender, without nodularity Lymph: no palpable lymphadenopathy Heart: regular rate & rhythm and no gallops Lungs: clear to auscultation , no rales, wheezes or rhonchi Abdomen: abdomen soft, diffuse tenderness noted on exam Musculoskeletal Exam: Adequate muscle strength of the hip flexors and deltoids No synovitis of the hands Assessment: M45.0 Ankylosing spondylitis of multiple sites in spine ([facility]) (primary encounter diagnosis) M35.01 Sjogren's syndrome with keratoconjunctivitis sicca ([facility]) C91.10 CLL (chronic lymphocytic leukemia) ([facility]) C83.00 Lymphocytic lymphoma ([facility]) M79.7 Fibromyalgia She has a very unfortunate female that has worsening lymphoma and follow closely by Oncology. I know autoimmune suppressive drugs for because of this. Her Sjogren's is pretty symptomatic and she is doing multiple prescription eyedrops were eyes as well as conservative measures for dry eyes and dry mouth. Plan: 1. Continue care with Ophthalmology and Oncology 2. Continue conservative measures for dryness along with prescription medications 3. Return to clinic in March Cyrus Ferreira MD Department of Rheumatology documented in this encounter Nursing Notes * Mansi Mitchell LPN - 08/01/2023 10:37 AM EDT Chief Complaint Patient presents with Rheum Follow Up Follow up - and sjogrens documented in this encounter Plan of Treatment Upcoming Encounters Date Type Department Care Team (Latest Contact Info) Description 08/04/2023 10:20 AM EDT Office Visit Ophthalmology, [facility] [address] [place] [address] Chris Benson, DO [address] [place] [address] 11/27/2023 2:00 PM EDT Hospital Encounter [facility]O [facility], Endoscopy Room [facility] [address] [place] [phone] Serena Soto, [address] [facility] [place] [address] 11/27/2023 2:00 PM EDT - 11/27/2023 2:30 PM EDT Surgery ENDO [facility], Endoscopy Room [facility] [address] [place] [phone] [facility] Soto[facility] [place] [address] COLONOSCOPY FLEXIBLE PROXIMAL DIAGNOSTIC 03/10/2024 10:00 AM EST Office Visit Rheumatology [address] [place] [address] Cyrus Ferreira MD [address] [place] [address] [place] [address] Scheduled Procedures Name Priority Associated Diagnoses Date/Ti [...] as of this encounter Visit Diagnoses Diagnosis Ankylosing spondylitis of multiple sites in spine (HCC)- Primary Ankylosing spondylitis Sjogren's syndrome with keratoconjunctivitis sicca (HCC) CLL (chronic lymphocytic leukemia) (HCC) Chronic lymphoid leukemia, without mention of having achieved remission Lymphocytic lymphoma (HCC) Lymphosarcoma, unspecified site, extranodal and solid organ sites Fibromyalgia Mylagia and myositis, unspecified Diarrhea History of colon polyps Personal history of colonic polyps documented in this encounter
--- OUTSIDE RECORDS SUMMARY | 2023-08-20 23:56 | External Medical Summary | Summary of Care ---
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 Name Role Phone Unavailable Primary Care Provider Unavailabl e Reason for Visit * Reason Comments Follow Up Encounter Details Date Type Department Care Team (Late st Contact Info) Description 08/04/2023 10:20 AM EDT Office Visit Ophthalmology, [facility] [address] [place] [address] Chris Benson T, DO [address] [place], [place] [id number] Acquired stenosis of both nasolacrimal ducts* Allergies [...] hypoallergenic earrings Certain perfumes & lotions, certain summer internship and sprays Ibuprofen 06/16/2008 bruising Lamotrigine Rash [...] as of this encounter (statuses as of 08/04/2023) Medications Medication Sig Dispensed Refills Start Date [...] 0.4 MG/SPRAY Translingual Solution (Nitrolingual) Place 1 [place] under the tongue as needed for Pain, [...] g, Refills: 3, to hands BID, Pharmacy: [facility] 0 02/04/2023 Active Clobetasol Propionate 0.05 % External Ointment (Temovate) Start: 02/04/23 13:55:00 EDT, 1 appl, topical, Daily, Disp# 45 g, Refills: 3, apply to hands q, Pharmacy: [facility] 0 02/04/2023 Active Lomotil 2.5-0.025 MG Oral Tablet Take 2.5 mg by mouth. 0 05/29/2023 Active methylPREDNISolone Sodium Succ 2000 MG Injection Solution Reconstituted (SOLU-Medrol) Administer 40 mg intravenously. Do not start before August 29, 2023. 0 08/29/2023 08/29/2023 Active predniSONE 10 MG Oral Tablet (Deltasone) 1 Tablet. 0 02/10/2023 Active documented as of this encounter (statuses as of 08/04/2023) Active Problems Problem Noted Date Diagnosed Date [...] as of this encounter (statuses as of 08/04/2023) Resolved Problems Problem Noted Date Diagnosed Date Resolved Date Nasal septal deformity 08/14/201804/24 documented as of this encounter (statuses as of 08/04/2023) Social History Tobacco Use Types Packs/Day Years [...] Progress Notes * Marcelino Chris Mer, - 08/04/2023 11:11 AM EDT Diana Pan is a 68 year old female who returns today for irrigation. 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 On vynclasta. Right eye miserable. Allergies. Eyes dry. Heart arrhythmia. Interval changein labs and imaging. 11q deletion and Fish studies bad. Progressive lymphoma reported. Allergies now an issue. Eyes terrible. Recent amoxil Rx. New large LN right occiput Ophthalmology Past History: amblyopia right eye, glasses AACG left eye s/p PI. Ophthalmology ROS: no recent significant change in vision, no diplopia and Positive for eye discharge both eyes, eye pain both eyes and redness both eyes Current Ophthalmic Medications:, istalol and both eyes patanol,acular moxifloxacin QID Current Outpatient Medications Medication Sig Dispense Refill olopatadine (PATANOL) 0.1 % ophthalmic solution Instill [...] eyes 4 times aday. 10 mL 3 Morphine Sulfate ER 30 MG Oral Tablet [...] 0.4 MG/SPRAY Translingual Solution (Nitrolingual) Place 1 [place] under the tongue as needed for Pain, [...] g, Refills: 3, to hands BID, Pharmacy: [facility] Clobetasol Propionate 0.05 % External Ointment (Temovate) Start: 02/04/23 13:55:00 EDT, 1 appl, topical, Daily, Disp# 45 g, Refills: 3, apply to hands qhs, Pharmacy: [facility] Lomotil 2.5-0.025 MG Oral Tablet Take 2.5 mg by mouth. [START ON 08/29/2023] methylPREDNISolone Sodium Succ 2000 MG Injection Solution Reconstituted (SOLU-Medrol) Administer 40 mg intravenously. Do not start before August 29, 2023. predniSONE 10 MG Oral Tablet (Deltasone) 1 Tablet. No current facility-administered medications for this visit. Base Eye Exam Tonometry (Applanation, 11:00AM) Right Left Pressure 13 13 Neuro/Psych Oriented x3: Yes Mood/Affect: Normal Slit [...] Office Procedure Note: Name: Diana Pan MRD: [id number] DATE: 08/04/2023 PREOP DX: conjunctivitis both eyes POSTOP DX: [...] Nursing Notes * Jelly Lay TECH - 08/04/2023 10:32 AM EDT Diana Pan is a 68 year old female who presents for Follow up. Last Visit: 07/30/2023 (in office), Visit date not found (telemedicine) She currently states that her left eye is swollen and hurts, says that it started over the weekend.She has been getting green stuff out of her eye but says that the more she messes with her left eyethe more irritated it gets. Are you diabetic? No Current Ophthalmic Medications: Ketorolac 0.5% op soln 1 gtt both eyes QID Ocuflox 1 gtt both eyes QID Patanol 1 gtt both eyes BID Refresh Timolol 1 gtt both eyes BID [facility], IOP, current eyeglass Rx, and pupil check and dilation if needed can be found in ophth exam. documented in this encounter Plan of Treatment Upcoming Encounters Date Type Department Care Team (Latest Contact Info) Description 11/27/2023 2:00 PM EDT Hospital Encounter [facility], Endoscopy Room [facility] [address] [place] [address] Serena Soto, DO [address] [place] [address] 11/27/2023 2:00 PM EDT - 11/27/2023 2:30 PM EDT Surgery [facility]O [facility], Endoscopy Room [facility] [address] [place] [address] Serena Soto, DO [address] [place] [address] COLONOSCOPY FLEXIBLE PROXIMAL DIAGNOSTIC 03/10/2024 10:00 AM EST Office Visit Rheumatology [address] [place] [address] Cyrus Ferreira MD [address] [place] [address] [place] [address] Scheduled Procedures Name Priority Associated Diagnoses Date/Ti [...]
--- OUTSIDE RECORDS SUMMARY | 2023-08-20 23:57 | External Medical Summary | Summary of Care ---
Author Name Unknown Organization [facility] Address [address] [place] [address] Phone [phone] Care Team Providers Care Voip Network Engineer Name Role Phone Unavailable Primary Care Provider Unavailabl e Reason for Visit * Reason Comments Follow Up Encounter Details Date Type Department Care Team (Late st Contact Info) Description 07/30/2023 9:15 AM EDT Office Visit Ophthalmology, [facility] [address] [place] [address] Chris Benson T, DO [address], [place] [id number] Acquired stenosis of both nasolacrimal ducts* Allergies [...] hypoallergenic earrings Certain perfumes & lotions, certain baggage smasher and sprays Ibuprofen 06/16/2008 bruising Lamotrigine Rash [...] bruising Aminobenzoic Acid 06/16/2008 Patchouli Oil 08/25/2017 Bacitracin-Polymyxin B 06/16/2008 Soap & Cleansers 01/15/2010 "ivory soap" Tetracycline Base Hives,Rash 06/16/2008 Trimethobenzamide Hcl 01/15/2010 "esters" Topiramate Rash 06/16/2008 Bromfenac Sodium 02/26/2012 "eyelid swelling and swelling in skin around eyes, burning and overall eye pain" documented as of this encounter (statuses as of 07/30/2023) Medications Medication Sig Dispensed Refills Start Date End Date Status FLEXERIL 10 MG PO TABS 1 tablet 3 times daily 0 Active RELAFEN 750 MG PO TABS 2 times daily for 3 weeks per month 0 Active ZYRTEC 10 MG PO TABS 1 tablet daily 0 Active MYCELEX 10 MG MT TROC dissolve 1 miguel in mough 5 x daily 0 Active DIPHENHYDRAMINE HCL 50 MG [...] a day. 10 mL 3 01/19/2019 Active Additional Information Patient not taking.Reported on 06/30/2023 olopatadine (PATANOL) 0.1 % ophthalmic solution Instill 1 Drop into both eyes 2 times a day. 5 mL 6 06/30/2019 Active Morphine Sulfate ER 30 MG Oral Tablet Extended Release (Ms Contin) Take 1 Tablet by mouth in the morning and 1 Tablet before bedtime. 0 05/22/2021 Active Venetoclax 100 MG Oral Tablet Take 2 Tablets by mouth in the morning. 0 Active Metoprolol Succinate ER 100 MG Oral [...] a day both eyes, Reported on 11/04/2022 riTUXimab 500 MG/50ML Intravenous Solution (Rituxan) Administer 375 mg/m2 intravenously once. 0 Active Pantoprazole Sodium 40 MG Oral Tablet Delayed [...] 0.4 MG/SPRAY Translingual Solution (Nitrolingual) Place 1 [place] under the tongue as needed for Pain, Chest. 0 Active Pilocarpine HCl 5 MG Oral Tablet (Salagen) TAKE 1 TABLET IN THE MORNING, NOON AND BEFORE BEDTIME 90 Tablet 11 07/11/2023 Active Amoxicillin 500 MG Oral Capsule (Amoxil) Take 1 Capsule by mouth in the morning and 1 Capsule at noon and 1 Capsule before bedtime. 30 Capsule 0 07/24/2023 Active Hospital, Clinic, or Other Facility Administered Medication Ordered Dose Route Frequency Start Date End Date Status Ofloxacin (Ocuflox) 0.3 % ophthalmic solution 1 DropIndications:Acquired stenosis of both nasolacrimal ducts 1 Drop LEFT EYE ONCE 07/30/2023 07/30/2023 Active documented as of this encounter (statuses as of 07/30/2023) Active Problems Problem Noted Date Diagnosed Date [...] as of this encounter (statuses as of 07/30/2023) Resolved Problems Problem Noted Date Diagnosed Date Resolved Date Nasal septal deformity 08/14/201804/24 documented as of this encounter (statuses as of 07/30/2023) Social History Tobacco Use Types Packs/Day Years [...] as of this encounter Progress Notes * Chris Benson, - 07/30/2023 9:27 AM EDT Diana Pan is a 68 year old female who returns today for irrigation. 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 On vynclasta. Right eye miserable. Allergies. Eyes dry. Heart arrhythmia. Interval changein labs and imaging. 11q deletion and Fish studies bad. Progressive lymphoma reported. Allergies now an issue. Eyes terrible. Recent amoxil Rx Ophthalmology Past History: amblyopia right eye, glasses [...] 10 MG PO TABS 1 tablet daily MYCELEX 10 MG MT TROC dissolve 1 miguel in mough 5 x daily (Patient not taking: Reported on 06/30/2023) DIPHENHYDRAMINE HCL 50 MG PO CAPS one [...] 5 econazole nitrate (SPECTAZOLE) 1 % cream (Patient not taking: Reported on 06/30/2023) FREMANEZUMAB-VFRM 225 MG/1.5ML SOSY Inject 1.5 mL under the skin Every Month. prednisolone acetate (PRED FORTE) 1 % ophthalmic suspension Instill 1 Drop into both eyes 4 times aday. (Patient not taking: Reported on 06/30/2023) 10 mL 3 olopatadine (PATANOL) 0.1 % ophthalmic solution Instill 1 Drop into both eyes 2 times a day. 5 mL 6 Morphine Sulfate ER 30 MG Oral Tablet Extended Release (Ms Contin) Take 1 Tablet by mouth in the morning and 1 Tablet before bedtime. Venetoclax 100 MG Oral Tablet Take 2 Tablets by mouth in the morning. (Patient not taking: Reportedon 06/30/2023) Metoprolol Succinate ER 100 MG Oral Tablet [...] a day both eyes.) 5 mL 6 riTUXimab 500 MG/50ML Intravenous Solution (Rituxan) Administer 375 mg/m2 intravenously once. (Patient not taking: Reported on 06/30/2023) Pantoprazole Sodium 40 MG Oral Tablet Delayed [...] 0.4 MG/SPRAY Translingual Solution (Nitrolingual) Place 1 [place] under the tongue as needed for Pain, Chest. Pilocarpine HCl 5 MG Oral Tablet (Salagen) TAKE 1 TABLET IN THE MORNING, NOON AND BEFORE BEDTIME 90Tablet 11 Amoxicillin 500 MG Oral Capsule (Amoxil) Take 1 Capsule by mouth in the morning and 1 Capsule at noon and 1 Capsule before bedtime. 30 Capsule 0 No current facility-administered medications for this visit. Base Eye Exam Visual Acuity Defer per patient Office Procedure Note: Name: Diana Pan MRD: [id number] DATE: 07/30/2023 PREOP DX: conjunctivitis both eyes POSTOP DX: [...] documented in this encounter Nursing Notes * Renu Noble LPN - 07/30/2023 9:10 AM EDT Diana Pan is a 68 year old female who presents for follow up. Last Visit: 07/21/2023 (in office), Visit date not found (telemedicine) She currently c/o pain 9/10 OS for the past 4 days. Has gotten some mucus out. Are you diabetic? No Current Ophthalmic Medications: VA, IOP, current eyeglass Rx, and Ketorolac OU QID Patanol BID Istalol BID Moxifloxacin QID Refreshpupil check and dilation if needed can be found in ophth exam. documented in this encounter Plan of Treatment Upcoming Encounters Date Type Department Care Team (Latest Contact Info) Description 08/01/2023 10:40 AM EDT Office Visit Rheumatology [address] [place] [address] Cyrus Ferreira MD [address] [place] [address] [place] [address] 08/04/2023 10:20 AM EDT Office Visit Ophthalmology, [facility] [address] [place] [address] Chris Benson, DO [address] [place] [address] 11/27/2023 2:00 PM EDT Hospital Encounter ENDO [facility], Endoscopy Room [facility] [address] [place] [phone] Serena Soto, [address] [facility] [place] [address] 11/27/2023 2:00 PM EDT - 11/27/2023 2:30 PM EDT Surgery ENDO [facility], Endoscopy Room [facility] [address] [place] [phone] Serena Soto, [address] [facility] [place] [address] COLONOSCOPY FLEXIBLE PROXIMAL DIAGNOSTIC Scheduled Procedures Name Priority Associated Diagnoses Date/Ti [...]
--- OUTSIDE RECORDS SUMMARY | 2023-08-20 23:57 | External Medical Summary | Summary of Care ---
Author Name Unknown Organization [facility] Address [address] [place] [address] Phone [phone] Care Team Providers Care Rail Signal Worker Name Role Phone Unavailable Primary Care Provider Unavailabl e Reason for Visit * Reason Comments Follow Up Encounter Details Date Type Department Care Team (Late st Contact Info) Description 07/30/2023 9:15 AM EDT Office Visit Ophthalmology, [facility] [address] [place] [address] Chris Benson T, DO [address], [place] [phone] Acquired stenosis of both nasolacrimal ducts* Allergies [...] hypoallergenic earrings Certain perfumes & lotions, certain cloud engineer and sprays Ibuprofen 06/16/2008 bruising Lamotrigine Rash [...] 0.4 MG/SPRAY Translingual Solution (Nitrolingual) Place 1 [place] under the tongue as needed for Pain, [...] 1 Drop LEFT EYE ONCE 07/30/2023 07/30/2023 Ended documented as of this encounter (statuses as [...] 0.4 MG/SPRAY Translingual Solution (Nitrolingual) Place 1 [place] under the tongue as needed for Pain, [...] Office Procedure Note: Name: Diana Pan MRD: [id number] DATE: 07/30/2023 PREOP DX: conjunctivitis both eyes [...] 08/01/2023 10:40 AM EDT Office Visit Rheumatology [address] [place] [address] Cyrus Ferreira MD [address] [place] [address] [place] [address] 08/04/2023 10:20 AM EDT Office Visit Ophthalmology, [facility] [address] [place] [address] Chris Benson, DO [address] [place] [address] 11/27/2023 2:00 PM EDT Hospital Encounter ENDO [facility], Endoscopy Room [facility] [address] [place] [phone] Serena Soto, [address] [facility] [place] [address] 11/27/2023 2:00 PM EDT - 11/27/2023 2:30 PM EDT Surgery ENDO [facility], Endoscopy Room [facility] [address] [place] [phone] Serena Soto, [address] [facility] [place] [address] COLONOSCOPY FLEXIBLE PROXIMAL DIAGNOSTIC Scheduled Procedures Name [...] of colonic polyps documented in this encounter Administered Medications Inactive Administered Medications - up to 3 most recent administrations Medication Order MAR Action Action Date Dose Rate Site Ofloxacin (Ocuflox) 0.3 % ophthalmic solution 1 Drop 1 Drop, Left eye, ONCE, On Fri07/30/23 at 1000, For 1 dose Given 07/30/2023 10:41 AM EDT 1 Drop Eye Left documented in this encounter
[2023-08-21] MEDS: oxyCODONE HCL IR 5 MG TAB (IMMEDIATE RELEASE) PO PRN (00:27)
[2023-08-21] MEDS: BUTALBITAL/ACETAMIN/CAFFEINE TAB PO PRN (01:49)
[2023-08-21] MEDS: cefTRIAXone SODIUM 2,000 MG/50 ML BAG IV SCH (04:52)
[2023-08-21 07:12] LABS: Hematocrit (blood only) 20.6 % (37.0-47.0); Hemoglobin 5.9 g/dl (12.0-16.0); Mean Corpuscular Hemoglobin 15.9 pg (25.0-34.0); Mean Corpuscular Hgb Conc 28.6 g/dL (32.0-36.0); Mean Corpuscular Volume 55.7 fL (80.0-100.0); Platelet Count 96 K/uL (130-400); RDW Coefficient of Variation 19.9 % (11.5-14.5); RDW Standard Deviation 38.3 fL (36.4-46.3); White Blood Count 10.67 K/ul (4.8-10.8)
[2023-08-21] MEDS ORDERED: SODIUM CHLORIDE 0.9% 250 ML IV PRN (07:21)
[2023-08-21 07:33] LABS: Albumin Globulin Ratio 1.8 (0.9-2); Albumin Level 3.2 gm/dl (3.4-5.0); BUN Creatinine Ratio 14.5 (10-20); Bilirubin,Total 0.2 mg/dl (0.2-1.0); Calcium 7.3 mg/dl (8.6-10.3); Creatinine Clr Calc Pharmacy 70.7 ml/min; Est GFR (African American) 104.4 ml/min; Est GFR (Non-African American) 90.1 ml/min; Globulin 1.8 gm/dl (2.5-4.0); Potassium 3.2 mmol/L (3.5-5.1)
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
[2023-08-21 08:15] LABS: Smudge Cells Present
[2023-08-21 08:38] LABS: ALC (manual) 10.03 K/uL (1.2-3.4); ANC (manual) 0.64 K/uL (1.4-6.5); Hypochromasia Present; Lymphocytes # (manual) 10.03 K/uL (1.2-3.4); Lymphocytes % (manual) 94 %; Microcytosis Present; Neutrophils # (manual) 0.64 K/uL (1.40-6.50); Neutrophils % (manual) 6 %; Ovalocytes 1+; Schistocytes 1+; Tear Drop Cells 2+
[2023-08-21 08:52] LABS: Reticulocyte % 0.59 % (0.50-2.00); Reticulocytes # 0.02 10^6/uL (0.020-0.100)
[2023-08-21 08:57] LABS: Ferritin 5.2 ng/ml (8-388)
[2023-08-21 09:14] LABS: Folate (Folic Acid),Ser orPlas 5.99 ng/ml (>5.38)
[2023-08-21] MEDS ORDERED: ACETAMINOPHEN 500 MG TAB PO PRN (10:47)
--- NOTE | 2023-08-21 11:58 | Hospitalist Progress Note ---
Date of Service August 21, 2023 Assessment & Plan (1) Small lymphocytic lymphoma: (2) Neutropenia: (3) Gastroenteritis: (4) Anemia: Plan Anemia Most likely due to her Lymphoma, which seems to be worsening Hb 5.9 today patient reluctant and anxious to get blood transfusion 2 units of PRBC ordered Hematology on consult Gastroenteritis | Nausea/Vomiting | Abdominal Pain -Admitted with Acute symptoms of abdominal pain/N/V/diarrhea in the past day -No more episodes here in the hospital -CT A/P with evidence of enteritis and worsening lymphadenopathy -Started on Ceftriaxone, Vancomycin Flagyl -Stool biofire was negative, procalcitoninwas also wnl -Will stope vancomycin and Flagyl -Zofran, Reglan for nausea. IV fluids for hydration. -Monitor daily CBC with diff, metabolic panel Neutropenia | Small Lymphocytic Leukemia, CLL -Neutropenic precautions -Total absolute neutrophils 0.26 in ED, improved slightly today -CT A/P read as "extensive bilateral iliac chain lymph nodes with smaller retroperitoneal and periaortic lymph nodes" -Most likely her Lymphoma is getting worse -Consult placed for oncology, appreciate recommendations History of Palpitations, Paroxysmal Supraventricular Tachycardia -Takes Metoprolol Succinate twice daily, metoprolol tartrate PRN Chronic pain -Patient at home on numerous pain control medications including Flexeril, Toradol, nabumetone, p.o. morphine, p.o. oxycodone -Medication list shows approximately 180 MME daily -May need additional IV pain medications while not able to tolerate much by mouth -IV dilaudid PRN ordered, can transition back to home PO regimen when able Admit to med/tele. Neutropenic precautions VTE prophylaxis: heparin Diet: Regular Code Status: Full Code Admission and Anticipated Discharge Date Admission Date: August 20, 2023 Subjective Patient seen and examined, when told that her hemoglobin was low and needed blood, she was very anxious and very reluctant. Eventually she agreed but then later found out that she was not getting be type blood which she stated was her blood group. 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 Review of Systems Review of Systems: All systems reviewed are negative, apart from the ones contained in the history. Physical Exam Physical Exam: The patient is awake, alert and oriented 3, well developed and well nourished, normocephalic and atraumatic, lying in bed and in no acute distress. HEENT--PERRL, EOMI, mucous membranes and oropharynx mildly dry Neck--supple. No JVD. No bruits. Thyroid normal, trachea midline, no a denopathy. Heart--normal S1 and S2. No murmurs, rubs or gallops. Lungs--clear bilaterally, no respiratory distress, no accessory muscle use. Abdomen--normal bowel sounds and soft. Extremities--no cyanosis or clubbing. No edema. Dermatologic--normal skin turgor, normal color, no abnormal lymph nodes, no rash. Neurologic--cranial nerves II through XII grossly intact. Rheumatologic--normal range of motion. Psychiatric--normal affect. Results & Data Results & Data Vital Signs (Past 12 Hours) Vital Signs Temp Pulse Pulse Resp BP BP Pulse Ox 08/21/23 11:30 98.6 F 71 129/68 08/21/23 11:28 98.6 F 71 16 129/68 95 08/21/23 11:15 98.8 F 72 18 125/62 97 08/21/23 10:55 98.1 F 74 20 132/74 95 08/21/23 10:31 98.1 F 74 20 132/78 100 08/21/23 10:29 98.1 F 74 20 132/78 100 08/21/23 07:53 98.3 F 64 16 119/61 95 08/21/23 07:01 61 08/21/23 03:30 97.9 F 64 16 102/57 L 96 O2 Del Method 08/21/23 11:30 08/21/23 11:28 08/21/23 11:15 08/21/23 10:55 08/21/23 10:31 08/21/23 10:29 Room Air 08/21/23 07:53 Room Air 08/21/23 07:01 08/21/23 03:30 Room Air PG Care Time/CCT Total # of Minutes Spent Total Time Spent with Patient: Total time spent is greater than 50% in coordination of care (as documented) at patient's floor/unit and/or counseling patient: Coding Level of Care Code 26795 SUB INP/OBS CARE 2/35MIN Diagnoses Small lymphocytic lymphoma C83.00 Neutropenia D70.9 Gastroenteritis K52.9 Anemia D64.9 Time Spent (min) 35
[2023-08-21] MEDS ORDERED: NITROGLYCERIN 60 SPRAYS/4.9 GM SPRAY SL PRN ×2 (12:26→12:39)
[2023-08-21] MEDS: MoRPHine SULFATE 2 MG/ML CARP IV STA (13:05)
[2023-08-21] MEDS: NITROGLYCERIN 60 SPRAYS/4.9 GM SPRAY SL PRN (17:13)
[2023-08-22 07:06] LABS: Hematocrit (blood only) 26.3 % (37.0-47.0); Hemoglobin 8.2 g/dl (12.0-16.0); Mean Corpuscular Hemoglobin 18.6 pg (25.0-34.0); Mean Corpuscular Hgb Conc 31.2 g/dL (32.0-36.0); Mean Corpuscular Volume 59.5 fL (80.0-100.0); Platelet Count 106 K/uL (130-400); RDW Coefficient of Variation 25.5 % (11.5-14.5); RDW Standard Deviation 51.8 fL (36.4-46.3); Red Blood Count 4.42 M/uL (4.20-5.40); White Blood Count 18.98 K/ul (4.8-10.8)
[2023-08-22 07:26] LABS: Albumin Globulin Ratio 1.8 (0.9-2); Albumin Level 3.5 gm/dl (3.4-5.0); BUN Creatinine Ratio 14.1 (10-20); Bilirubin,Total 0.5 mg/dl (0.2-1.0); Calcium 7.7 mg/dl (8.6-10.3); Creatinine Clr Calc Pharmacy 57.5 ml/min; Est GFR (African American) 82.2 ml/min; Est GFR (Non-African American) 70.9 ml/min; Globulin 1.9 gm/dl (2.5-4.0); Potassium 3.4 mmol/L (3.5-5.1); Total Protein 5.4 gm/dl (6.0-8.3)
[2023-08-22 07:57] LABS: Anisocytosis Present; Basophils # (auto) 0.06 K/uL (0.00-0.20); Basophils % (auto) 0.3 %; Eosinophils # (auto) 0.16 K/uL (0.00-0.50); Eosinophils % (auto) 0.8 %; Hypochromasia Present; Immature Granulocytes # (auto) 0.06 K/uL (0.01-0.20); Immature Granulocytes % (auto) 0.3 %; Lymphocytes # (auto) 14.39 K/uL (1.20-3.40); Lymphocytes % (auto) 75.8 %; Microcytosis Present; Monocytes # (auto) 2.25 K/uL (0.11-0.59); Monocytes % (auto) 11.9 %; Neutrophils # (auto) 2.06 K/uL (1.40-6.50); Neutrophils % (auto) 10.9 %; Ovalocytes 1+; Polychromasia 1+; Smudge Cells Present; Tear Drop Cells 1+
[2023-08-22] MEDS: IRON SUCROSE 200 MG in 0.9 % SODIUM CHLORIDE 100 ML IV ONE (08:22)
[2023-08-22] MEDS: METOCLOPRAMIDE HCL INJ 5 MG/ML 2 ML VIAL IV PRN (08:31)
--- NOTE | 2023-08-22 10:13 | Electrocardiogram Report ---
Test Reason : Blood Pressure : / mmHG Vent. Rate : 067 BPM Atrial Rate : 067 BPM P-R Int : 174 ms QRS Dur : 084 ms QT Int : 408 ms P-R-T Axes : 055 -01 029 degrees QTc Int : 431 ms Normal sinus rhythm Normal ECG When compared with ECG of 20-AUG-2023 00:46, Vent. rate has decreased BY 35 BPM Nonspecific T wave abnormality, improved in Inferior leads Nonspecific T wave abnormality has replaced inverted T waves in Anterior leads Confirmed by Mello Luna ([id number] on 08/22/2023 10:12:59 AM Referred By: REFERRED SELF Confirmed By:Tian Luna
--- NOTE | 2023-08-22 12:31 | Hospitalist Progress Note ---
Date of Service August 22, 2023 Assessment & Plan (1) Small lymphocytic lymphoma: (2) Neutropenia: (3) Gastroenteritis: (4) Anemia: Plan Anemia Most likely due to her Lymphoma, which seems to be worsening Hb 8.2 post transfusion of 2 units of blood Currently on Venofer infusion x2 Gastroenteritis | Nausea/Vomiting | Abdominal Pain -Admitted with Acute symptoms of abdominal pain/N/V/diarrhea in the past day -No more episodes here in the hospital -CT A/P with evidence of enteritis and worsening lymphadenopathy -Started on Ceftriaxone, Vancomycin Flagyl -Stool biofire was negative, procalcitoninwas also wnl -Will stop vancomycin and Flagyl -Zofran, Reglan for nausea. IV fluids for hydration. 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 History of Palpitations, Paroxysmal Supraventricular Tachycardia -Takes Metoprolol Succinate twice daily, metoprolol tartrate PRN Chronic pain -Patient at home on numerous pain control medications including Flexeril, Toradol, nabumetone, p.o. morphine, p.o. oxycodone -Medication list shows approximately 180 MME daily -May need additional IV pain medications while not able to tolerate much by mouth -IV dilaudid PRN ordered, can transition back to home PO regimen when able Admit to med/tele. Neutropenic precautions VTE prophylaxis: heparin Diet: Regular Code Status: Full Code Admission and Anticipated Discharge Date Admission Date: August 20, 2023 Subjective Patient seen and examined, complains of some nausea but denies abdominal pain. Review of Systems Review of Systems: All systems reviewed are negative, apart from the ones contained in the history. Physical Exam Physical Exam: The patient is awake, alert and oriented 3, well developed and well nourished, normocephalic and atraumatic, lying in bed and in no acute distress. HEENT--PERRL, EOMI, mucous membranes and oropharynx mildly dry Neck--supple. No JVD. No bruits. Thyroid normal, trachea midline, no adenopathy. Heart--normal S1 and S2. No murmurs, rubs or gallops. Lungs--clear bilaterally, no respiratory distress, no accessory muscle use. Abdomen--normal bowel sounds and soft. Extremities--no cyanosis or clubbing. No edema. Dermatologic--normal skin turgor, normal color, no abnormal lymph nodes, no rash. Neurologic--cranial nerves II through XII grossly intact. Rheumatologic--normal range of motion. Psychiatric--normal affect. Results & Data Results & Data Vital Signs (Past 12 Hours) Vital Signs Temp Pulse Resp BP Pulse Ox O2 Del Method 08/22/23 11:23 97.9 F 89 18 135/70 95 Room Air 08/22/23 07:35 98.1 F 65 18 149/74 H 98 Room Air PG Care Time/CCT Total # of Minutes Spent Total Time Spent with Patient: Total time spent is greater than 50% in coordination of care (as documented) at patient's floor/unit and/or counseling patient: Coding Level of Care Code 49200 SUB INP/OBS CARE 2/35MIN Diagnoses Small lymphocytic lymphoma C83.00 Neutropenia D70.9 Gastroenteritis K52.9 Anemia D64.9 Time Spent (min) 35
[2023-08-23 06:31] LABS: Albumin Globulin Ratio 1.8 (0.9-2); Albumin Level 3.5 gm/dl (3.4-5.0); BUN Creatinine Ratio 17.4 (10-20); Bilirubin,Total 0.3 mg/dl (0.2-1.0); Calcium 7.7 mg/dl (8.6-10.3); Creatinine Clr Calc Pharmacy 70.9 ml/min; Est GFR (African American) 104.4 ml/min; Est GFR (Non-African American) 90.1 ml/min; Globulin 1.9 gm/dl (2.5-4.0); Potassium 3.1 mmol/L (3.5-5.1); Total Protein 5.4 gm/dl (6.0-8.3)
[2023-08-23 07:32] LABS: Hematocrit (blood only) 25.8 % (37.0-47.0); Mean Corpuscular Hemoglobin 18.5 pg (25.0-34.0); Mean Corpuscular Volume 59.6 fL (80.0-100.0); Platelet Count 109 K/uL (130-400); RDW Standard Deviation 53.5 fL (36.4-46.3); Red Blood Count 4.33 M/uL (4.20-5.40); White Blood Count 20.57 K/ul (4.8-10.8)
[2023-08-23 07:33] LABS: Anisocytosis Present; Basophils # (auto) 0.05 K/uL (0.00-0.20); Basophils % (auto) 0.2 %; Hypochromasia Present; Immature Granulocytes # (auto) 0.11 K/uL (0.01-0.20); Immature Granulocytes % (auto) 0.5 %; Lymphocytes # (auto) 15.79 K/uL (1.20-3.40); Lymphocytes % (auto) 76.8 %; Microcytosis Present; Monocytes # (auto) 2.62 K/uL (0.11-0.59); Monocytes % (auto) 12.7 %; Neutrophils % (auto) 8.8 %; Ovalocytes 1+; Polychromasia 1+; Smudge Cells Present; Tear Drop Cells 1+
[2023-08-23] MEDS: IRON SUCROSE 200 MG in 0.9 % SODIUM CHLORIDE 100 ML IV ONE (08:08)
[2023-08-23] MEDS: POTASSIUM CHLORIDE 20 MEQ/15 ML UDC PO STA (09:00)
--- NOTE | 2023-08-23 10:47 | Electrocardiogram Report ---
Test Reason : Blood Pressure : / mmHG Vent. Rate : 059 BPM Atrial Rate : 059 BPM P-R Int : 178 ms QRS Dur : 084 ms QT Int : 442 ms P-R-T Axes : 002 -02 014 degrees QTc Int : 437 ms Sinus bradycardia Otherwise normal ECG When compared with ECG of 21-AUG-2023 12:57, No significant change was found Confirmed by Brenton Shanks ([id number]) on 08/23/2023 10:47:05 AM Referred By: REFERRED SELF Confirmed By:Brenton Shanks
--- NOTE | 2023-08-23 11:37 | Hospitalist Progress Note ---
Date of Service August 23, 2023 Assessment & Plan (1) Small lymphocytic lymphoma: (2) Neutropenia: (3) Gastroenteritis: (4) Anemia: Plan Anemia Most likely due to her Lymphoma, which seems to be worsening Hb 8.2 post transfusion of 2 units of blood Currently on Venofer infusion x2 Gastroenteritis | Nausea/Vomiting | Abdominal Pain -Admitted with Acute symptoms of abdominal pain/N/V/diarrhea in the past day -No more episodes here in the hospital -CT A/P with evidence of enteritis and worsening lymphadenopathy -Started on Ceftriaxone, Vancomycin Flagyl -Stool biofire was negative, procalcitoninwas also wnl -Will stop vancomycin and Flagyl -Zofran, Reglan for nausea. IV fluids for hydration. 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 History of Palpitations, Paroxysmal Supraventricular Tachycardia -Takes Metoprolol Succinate twice daily, metoprolol tartrate PRN Chronic pain -Patient at home on numerous pain control medications including Flexeril, Toradol, nabumetone, p.o. morphine, p.o. oxycodone -Medication list shows approximately 180 MME daily -May need additional IV pain medications while not able to tolerate much by mouth -IV dilaudid PRN ordered, can transition back to home PO regimen when able Hopefully nd/c tomorrow VTE prophylaxis: heparin Diet: Regular Code Status: Full Code Admission and Anticipated Discharge Date Admission Date: August 20, 2023 Subjective Patient seen and examined, feels overall better today Review of Systems Review of Systems: All systems reviewed are negative, apart from the ones contained in the history. Physical Exam Physical Exam: The patient is awake, alert and oriented 3, well developed and well nourished, normocephalic and atraumatic, lying in bed and in no acute distress. HEENT--PERRL, EOMI, mucous membranes and oropharynx mildly dry Neck--supple. No JVD. No bruits. Thyroid normal, trachea midline, no adenopathy. Heart--normal S1 and S2. No murmurs, rubs or gallops. Lungs--clear bilaterally, no respiratory distress, no accessory muscle use. Abdomen--normal bowel sounds and soft. Extremities--no cyanosis or clubbing. No edema. Dermatologic--normal skin turgor, normal color, no abnormal lymph nodes, no rash. Neurologic--cranial nerves II through XII grossly intact. Rheumatologic--normal range of motion. Psychiatric--normal affect. Results & Data Results & Data Vital Signs (Past 12 Hours) Vital Signs Temp Pulse Resp BP Pulse Ox O2 Del Method 08/23/23 11:17 98.5 F 70 16 159/76 H 98 Room Air 08/23/23 07:42 98.2 F 59 L 16 146/82 H 96 Room Air 08/23/23 02:59 97.5 F L 65 18 142/65 H 95 Room Air PG Care Time/CCT Total # of Minutes Spent Total Time Spent with Patient: Total time spent is greater than 50% in coordination of care (as documented) at patient's floor/unit and/or counseling patient: Coding Level of Care Code 51143 SUB INP/OBS CARE 2/35MIN Diagnoses Small lymphocytic lymphoma C83.00 Neutropenia D70.9 Gastroenteritis K52.9 Anemia D64.9 Time Spent (min) 35
[2023-08-23] MEDS: POTASSIUM CHLORIDE CRTAB 20 MEQ TABCR PO STA (12:01)
[2023-08-24] MEDS: LORazepam 0.5 MG in SYRINGE 0.25 ML IV STA (01:42)
--- NOTE | 2023-08-24 05:38 | Ultrasound Report ---
Exam(s): US VENOUS LEFT LOWER EXTREMITY EXAM: US Duplex Left Lower Extremity Veins CLINICAL HISTORY: Reason for exam: Pain and unilateral swelling. TECHNIQUE: Real-time duplex ultrasound scan of the left lower extremity veins integrating B-mode two-dimensional vascular structure, Doppler spectral analysis, color flow Doppler imaging and compression. COMPARISON: No relevant prior studies available. FINDINGS: Deep veins: Unremarkable. No DVT in the visualized common femoral, femoral, proximal deep femoral or popliteal veins. The veins demonstrate normal color flow, are normally compressible, with normal phasic flow and/or augmentation response. Superficial veins: Unremarkable. No thrombus in the visualized great saphenous vein. IMPRESSION: Normal left lower extremity duplex venous ultrasound. Electronically signed by: Lino Ambrocio MD 08/24/23 05:37 AM
[2023-08-24 06:07] LABS: BUN Creatinine Ratio 16.7 (10-20); Calcium 8.2 mg/dl (8.6-10.3); Est GFR (African American) 100.4 ml/min; Est GFR (Non-African American) 86.7 ml/min; Potassium 3.6 mmol/L (3.5-5.1)
[2023-08-24 06:47] LABS: Hemoglobin 8.4 g/dl (12.0-16.0); Mean Corpuscular Hemoglobin 18.1 pg (25.0-34.0); Mean Corpuscular Volume 60.5 fL (80.0-100.0); Nucleated RBC # (auto) 0.03 K/uL (0.00-0.12); Nucleated RBC % (auto) 0.1 %; Platelet Count 115 K/uL (130-400); RDW Coefficient of Variation 26.9 % (11.5-14.5); RDW Standard Deviation 55.7 fL (36.4-46.3); Red Blood Count 4.63 M/uL (4.20-5.40); White Blood Count 23.57 K/ul (4.8-10.8)
[2023-08-24 06:56] LABS: Anisocytosis Present; Basophils # (auto) 0.09 K/uL (0.00-0.20); Basophils % (auto) 0.4 %; Eosinophils # (auto) 0.21 K/uL (0.00-0.50); Eosinophils % (auto) 0.9 %; Hypochromasia Present; Immature Granulocytes # (auto) 0.09 K/uL (0.01-0.20); Immature Granulocytes % (auto) 0.4 %; Lymphocytes # (auto) 16.99 K/uL (1.20-3.40); Lymphocytes % (auto) 72.1 %; Microcytosis Present; Monocytes % (auto) 17.4 %; Neutrophils # (auto) 2.09 K/uL (1.40-6.50); Neutrophils % (auto) 8.8 %; Ovalocytes 1+; Polychromasia 1+; Smudge Cells Present; Tear Drop Cells 1+
[2023-08-24] MEDS: POTASSIUM CHLORIDE 20 MEQ/15 ML UDC PO STA (10:09)
--- NOTE | 2023-08-24 11:20 | Hospitalist Progress Note ---
Date of Service August 24, 2023 Assessment & Plan (1) Small lymphocytic lymphoma: (2) Neutropenia: (3) Gastroenteritis: (4) Anemia: Plan Anemia Most likely due to her Lymphoma, which seems to be worsening Hb 8.2 post transfusion of 2 units of blood Completed Venofer infusion x2 Gastroenteritis | Nausea/Vomiting | Abdominal Pain -Admitted with Acute symptoms of abdominal pain/N/V/diarrhea in the past day -No more episodes here in the hospital -CT A/P with evidence of enteritis and worsening lymphadenopathy -Started on Ceftriaxone, Vancomycin Flagyl -Stool biofire was negative, procalcitoninwas also wnl -Discontinued antibiotics -Zofran, Reglan for nausea. IV fluids for hydration. 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 History of Palpitations, Paroxysmal Supraventricular Tachycardia -Takes Metoprolol Succinate twice daily, metoprolol tartrate PRN Chronic pain -Patient at home on numerous pain control medications including Flexeril, Toradol, nabumetone, p.o. morphine, p.o. oxycodone -Medication list shows approximately 180 MME daily -May need additional IV pain medications while not able to tolerate much by mouth -IV dilaudid PRN ordered, can transition back to home PO regimen when able Abd pain: Right lower abd pain and bruise, around area of sub Q heparin injections Ct abd done, official read pending Hopefully nd/c tomorrow VTE prophylaxis: heparin Diet: Regular Code Status: Full Code Admission and Anticipated Discharge Date Admission Date: August 20, 2023 Subjective Patient seen and examined, Complains of right lower abdominal pain and bruise Review of Systems Review of Systems: All systems reviewed are negative, apart from the ones contained in the history. Physical Exam Physical Exam: The patient is awake, alert and oriented 3, well developed and well nourished, normocephalic and atraumatic, lying in bed and in no acute distress. HEENT--PERRL, EOMI, mucous membranes and oropharynx mildly dry Neck--supple. No JVD. No bruits. Thyroid normal, trachea midline, no adenopathy. Heart--normal S1 and S2. No murmurs, rubs or gallops. Lungs--clear bilaterally, no respiratory distress, no accessory muscle use. Abdomen--normal bowel sounds and soft. Extremities--no cyanosis or clubbing. No edema. Dermatologic--normal skin turgor, normal color, no abnormal lymph nodes, no rash. Neurologic--cranial nerves II through XII grossly intact. Rheumatologic--normal range of motion. Psychiatric--normal affect. Results & Data Results & Data Vital Signs (Past 12 Hours) Vital Signs Temp Pulse Pulse Resp BP BP Pulse Ox 08/24/23 07:55 08/24/23 07:34 98.0 F 64 16 146/73 H 97 08/24/23 07:14 72 08/24/23 03:23 98.2 F 65 18 138/71 93 O2 Del Method 08/24/23 07:55 Room Air 08/24/23 07:34 Room Air 08/24/23 07:14 08/24/23 03:23 Room Air PG Care Time/CCT Total # of Minutes Spent Total Time Spent with Patient: Total time spent is greater than 50% in coordination of care (as documented) at patient's floor/unit and/or counseling patient: Coding Level of Care Code 81064 SUB INP/OBS CARE 2/35MIN Diagnoses Small lymphocytic lymphoma C83.00 Neutropenia D70.9 Gastroenteritis K52.9 Anemia D64.9 Time Spent (min) 35
--- NOTE | 2023-08-24 11:45 | CT Scan Report ---
ABDOMEN AND PELVIS CT WITHOUT CONTRAST CT DOSE: 1102.8 mGy.cm HISTORY: Acute lower abdominal pain lower abd pain TECHNIQUE: Multiaxial CT images of the abdomen and pelvis were performed without contrast. A dose lo wering technique was utilized adhering to the principles of ALARA. COMPARISON STUDY: 08/20/2023, 08/22/2023 FINDINGS: Trace right pleural effusion. Minimal bibasilar atelectasis. No pneumoperitoneum. No pneumatosis. No suspicious lytic or blastic osseous lesions. Prior cholecyste ctomy. This likely accounts for the mild intrahepatic bile duct dilatation. No hepatic or splenic mas ses. The spleen is enlarged measuring approximately 16.5 cm. Normal caliber abdominal aorta. The kidn eys are unremarkable without hydronephrosis. Redemonstration of gastrohepatic, periportal, retroperitoneal, mesenteric, pelvic, and inguinal lymph adenopathy. A dominant left pelvic sidewall lymph node measures 5.2 x 3.5 cm. On image 303 series 3. Mild nonspecific gallbladder wall thickening. Prior hysterectomy. Trace pelvic free fluid. Multiple m ildly enlarged perirectal lymph nodes are also identified. Moderate fecal retention. No bowel wall th ickening or obstruction. Colonic diverticulosis. Small fat filled umbilical hernia. The appendix is u nremarkable. IMPRESSION: 1. No bowel obstruction or bowel wall thickening. 2. Splenomegaly with pathologically enlarged lymph nodes of the abdomen and pelvis redemonstrated com patible with the patient's clinical diagnosis of lymphoma. 3. Colonic diverticulosis. 4. Cholecystectomy. ACT 112: Negative or not required by law. The above report was generated using voice recognition software. It may contain grammatical, syntax o r spelling errors. Electronically signed by: Blade Sosa M.D. 08/24/2023 11:43 AM
[2023-08-24] MEDS: POTASSIUM CHLORIDE 20 MEQ/15 ML UDC PO SCH (22:00)
[2023-08-25] MEDS: SUMAtriptan succinate 100 MG TAB PO PRN (00:07)
[2023-08-25 09:18] LABS: BUN Creatinine Ratio 16.5 (10-20); Calcium 8.9 mg/dl (8.6-10.3); Creatinine Clr Calc Pharmacy 52.8 ml/min; Est GFR (African American) 75.7 ml/min; Est GFR (Non-African American) 65.3 ml/min; Potassium 4.3 mmol/L (3.5-5.1)
[2023-08-25 09:23] LABS: Hematocrit (blood only) 33.2 % (37.0-47.0); Hemoglobin 10.1 g/dl (12.0-16.0); Mean Corpuscular Hemoglobin 18.7 pg (25.0-34.0); Mean Corpuscular Hgb Conc 30.4 g/dL (32.0-36.0); Mean Corpuscular Volume 61.4 fL (80.0-100.0); Nucleated RBC # (auto) 0.04 K/uL (0.00-0.12); Nucleated RBC % (auto) 0.2 %; Platelet Count 132 K/uL (130-400); RDW Coefficient of Variation 28.2 % (11.5-14.5); RDW Standard Deviation 58.4 fL (36.4-46.3); Red Blood Count 5.41 M/uL (4.20-5.40)
[2023-08-25 09:33] LABS: Anisocytosis Present; Basophils # (auto) 0.09 K/uL (0.00-0.20); Basophils % (auto) 0.4 %; Eosinophils # (auto) 0.21 K/uL (0.00-0.50); Eosinophils % (auto) 0.9 %; Hypochromasia Present; Immature Granulocytes # (auto) 0.06 K/uL (0.01-0.20); Immature Granulocytes % (auto) 0.3 %; Lymphocytes # (auto) 18.95 K/uL (1.20-3.40); Lymphocytes % (auto) 79.3 %; Microcytosis Present; Monocytes # (auto) 2.49 K/uL (0.11-0.59); Monocytes % (auto) 10.4 %; Neutrophils % (auto) 8.7 %; Ovalocytes 1+; Polychromasia 1+; Smudge Cells Present; Tear Drop Cells 2+
--- NOTE | 2023-08-25 12:17 | Hospitalist Progress Note ---
Date of Service August 25, 2023 Assessment & Plan (1) Small lymphocytic lymphoma: (2) Neutropenia: (3) Gastroenteritis: (4) Anemia: Plan Anemia Most likely due to her Lymphoma, which seems to be worsening Hb stable post transfusion of 2 units of blood Completed Venofer infusion x2 Gastroenteritis | Nausea/Vomiting | Abdominal Pain -Admitted with Acute symptoms of abdominal pain/N/V/diarrhea in the past day -No more episodes here in the hospital -CT A/P with evidence of enteritis and worsening lymphadenopathy -Started on Ceftriaxone, Vancomycin Flagyl -Stool biofire was negative, procalcitoninwas also wnl -Discontinued antibiotics -Zofran, Reglan for nausea. IV fluids for hydration. 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 History of Palpitations, Paroxysmal Supraventricular Tachycardia -Takes Metoprolol Succinate twice daily, metoprolol tartrate PRN Chronic pain -Patient at home on numerous pain control medications including Flexeril, Toradol, nabumetone, p.o. morphine, p.o. oxycodone -Medication list shows approximately 180 MME daily -May need additional IV pain medications while not able to tolerate much by mouth -IV dilaudid PRN ordered, can transition back to home PO regimen when able Abd pain: Right lower abd pain and bruise, around area of sub Q heparin injections Ct abd Did not show any acute pathology, only lymphadenopathy which is worse than before Hopefully nd/c tomorrow VTE prophylaxis: heparin Diet: Regular Code Status: Full Code Admission and Anticipated Discharge Date Admission Date: August 20, 2023 Subjective Patient seen and examined, Complains of right lower abdominal pain and bruise, But states pain is a little better. Review of Systems Review of Systems: All systems reviewed are negative, apart from the ones contained in the history. Physical Exam Physical Exam: The patient is awake, alert and oriented 3, well developed and well nourished, normocephalic and atraumatic, lying in bed and in no acute distress. HEENT--PERRL, EOMI, mucous membranes and oropharynx mildly dry Neck--supple. No JVD. No bruits. Thyroid normal, trachea midline, no adenopathy. Heart--normal S1 and S2. No murmurs, rubs or gallops. Lungs--clear bilaterally, no respiratory distress, no accessory muscle use. Abdomen--normal bowel sounds and soft. Extremities--no cyanosis or clubbing. No edema. Dermatologic--normal skin turgor, normal color, no abnormal lymph nodes, no rash. Neurologic--cranial nerves II through XII grossly intact. Rheumatologic--normal range of motion. Psychiatric--normal affect. Results & Data Results & Data Vital Signs (Past 12 Hours) Vital Signs Temp Pulse Pulse Resp BP Pulse Ox O2 Del Method 08/25/23 11:32 97.7 F 65 16 123/72 98 Room Air 08/25/23 07:56 97.9 F 61 16 172/73 H 94 Room Air 08/25/23 07:39 Room Air 08/25/23 07:20 61 08/25/23 03:03 97.8 F 67 18 167/75 H 97 Room Air PG Care Time/CCT Total # of Minutes Spent Total Time Spent with Patient: Total time spent is greater than 50% in coordination of care (as documented) at patient's floor/unit and/or counseling patient: Coding Level of Care Code 69956 SUB INP/OBS CARE 2/35MIN Diagnoses Small lymphocytic lymphoma C83.00 Neutropenia D70.9 Gastroenteritis K52.9 Anemia D64.9 Time Spent (min) 35
[2023-08-26 06:50] LABS: BUN Creatinine Ratio 19.8 (10-20); Calcium 8.5 mg/dl (8.6-10.3); Creatinine Clr Calc Pharmacy 52.2 ml/min; Est GFR (African American) 75.7 ml/min; Est GFR (Non-African American) 65.3 ml/min; Potassium 3.8 mmol/L (3.5-5.1)
[2023-08-26 07:12] LABS: Hematocrit (blood only) 31.9 % (37.0-47.0); Hemoglobin 9.5 g/dl (12.0-16.0); Mean Corpuscular Hemoglobin 18.2 pg (25.0-34.0); Mean Corpuscular Hgb Conc 29.8 g/dL (32.0-36.0); Nucleated RBC # (auto) 0.05 K/uL (0.00-0.12); Nucleated RBC % (auto) 0.2 %; Platelet Count 116 K/uL (130-400); RDW Coefficient of Variation 28.4 % (11.5-14.5); RDW Standard Deviation 58.8 fL (36.4-46.3); Red Blood Count 5.23 M/uL (4.20-5.40); White Blood Count 20.98 K/ul (4.8-10.8)
--- NOTE | 2023-08-26 13:01 | Discharge Summary ---
Date of Service August 26, 2023 Admission HPI Per Admitting Provider Diana Pan is a 68 year-old female with PMH of CLL, small lymphocytic lymphoma, ankylosing spondylitis, sjogren's who presented to the ED due to nausea/vomiting/abdominal pain. Symptoms started earlier in the day, has had many episodes of loose stool and bilious vomiting and was not able to keep down her home meds due to the vomiting. She endorses feeling very weak and dehydrated. Also notes that she has had cramping pain in her LUQ and RUQ as well as LLQ. Notes that her lymphoma has been progressing and has had recent scans that showed "many" additional lymph nodes and most recently has been in the process of getting a lymph node at the back of her head biopsied (it increased in size from a grape to the size of an egg is weeks), and upon these results her team was going to discuss treatment plan. [place] [facility] [place] Nuñez [place]. ED Course: -CT A/P -Blood cultures, CBC, CMP, lipase -UA Principal Diagnosis Anemia, CLL Discharge Exam The patient is awake, alert and oriented 3, well developed and well nourished, normocephalic and atraumatic, lying in bed and in no acute distress. HEENT--PERRL, EOMI, mucous membranes and oropharynx mildly dry Neck--supple. No JVD. No bruits. Thyroid normal, trachea midline, no adenopathy. Heart--normal S1 and S2. No murmurs, rubs or gallops. Lungs--clear bilaterally, no respiratory distress, no accessory muscle use. Abdomen--normal bowel sounds and soft. Extremities--no cyanosis or clubbing. No edema. Dermatologic--normal skin turgor, normal color, no abnormal lymph nodes, no rash. Neurologic--cranial nerves II through XII grossly intact. Rheumatologic--normal range of motion. Psychiatric--normal affect. Discharge Data Allergies Allergy/AdvReac Type Severity Reaction Status Date / Time adhesive Allergy Intermediate SKIN Verified 08/20/23 01:04 IRRITATION, WELTS bacitracin Allergy Intermediate RASH/SWELLI Verified 08/20/23 01:04 NG/WELTS bee venom protein (honey bee) Allergy Intermediate HIVES ALL Verified 08/20/23 01:04 OVER, TROUBLE BREATHING bromfenac Allergy Intermediate EYELIDS Verified 08/20/23 01:04 SWELLING, EYE DROPS xibrom dicyclomine Allergy Intermediate RASH ALL Verified 08/20/23 01:04 OVER BODY doxycycline Allergy Intermediate HIVES Verified 08/20/23 01:04 lamotrigine Allergy Intermediate WELTS Verified 08/20/23 01:04 loteprednol Allergy Intermediate FEELS Verified 08/20/23 01:04 INTENSE BURNING IN EYES mupirocin Allergy Intermediate RASH Verified 08/20/23 01:04 neomycin Allergy Intermediate RASH/SWELLI Verified 08/20/23 01:04 NG/WELTS polymyxin B Allergy Intermediate RASH/SWELLI Verified 08/20/23 01:04 NG/WELTS pregabalin Allergy Intermediate SWELLING Verified 08/20/23 01:04 HANDS/FEET, MOUTH SORES sulfamethoxazole Allergy Intermediate RASH Verified 08/20/23 01:04 tetracycline Allergy Intermediate HIVES Verified 08/20/23 01:04 topiramate Allergy Intermediate Rash Verified 08/20/23 01:04 trimethoprim Allergy Intermediate RASH Verified 08/20/23 01:04 wool Allergy Intermediate Hives Verified 08/20/23 01:04 aspirin AdvReac Intermediate BRUISING Verified 08/20/23 01:04 ALL OVER Bleach (Sodium Hypochlorite) AdvReac Intermediate AFFECTS Verified 08/20/23 01:04 BREATHING ibuprofen AdvReac Intermediate BRUISING Verified 08/20/23 01:04 ALL OVER trimethobenzamide AdvReac Intermediate MUSCLE Verified 08/20/23 01:04 CONTRACTION PABA Allergy Intermediate Rash Uncoded 08/20/23 01:04 surgical latesha Allergy Intermediate red, Uncoded 08/20/23 01:04 infection from latesha Consultations 08/20/23 04:55 ED Decision to Admit Stat 08/20/23 06:21 Consult Oncology Routine Ordered Studies 08/20/23 01:26 CT abd pelvis IV con only Stat 08/23/23 23:38 US venous duplex leg [US venous doppler LE LT] Urgent 08/24/23 08:57 CT Abd and Pelvis [CT abd pelvis wo con] Routine Hospital Course (1) Small lymphocytic lymphoma: (2) Neutropenia: (3) Gastroenteritis: (4) Anemia: Plan Anemia Most likely due to her Lymphoma, which seems to be worsening Hb stable post transfusion of 2 units of blood Completed Venofer infusion x2 Gastroenteritis | Nausea/Vomiting | Abdominal Pain -Admitted with Acute symptoms of abdominal pain/N/V/diarrhea in the past day -No more episodes here in the hospital -CT A/P with evidence of enteritis and worsening lymphadenopathy -Started on Ceftriaxone, Vancomycin Flagyl -Stool biofire was negative, procalcitoninwas also wnl -Discontinued antibiotics -Zofran, Reglan for nausea. IV fluids for hydration. -Monitor daily CBC with diff, metabolic panel Small Lymphocytic Leukemia, CLL -Neutropenic precautions -CT A/P read as "extensive bilateral iliac chain lymph nodes with smaller retroperitoneal and periaortic lymph nodes" -Most likely her Lymphoma is getting worse -Consult placed for oncology, appreciate recommendations -Plan is outpatient follow-up of her engraver picture and oncologist, she needs treatment as soon as possible. History of Palpitations, Paroxysmal Supraventricular Tachycardia -Takes Metoprolol Succinate twice daily, metoprolol tartrate PRN Chronic pain -Patient at home on numerous pain control medications including Flexeril, Toradol, nabumetone, p.o. morphine, p.o. oxycodone -Medication list shows approximately 180 MME daily -May need additional IV pain medications while not able to tolerate much by mouth -IV dilaudid PRN ordered, can transition back to home PO regimen when able Abd pain: Right lower abd pain and bruise, around area of sub Q heparin injections Ct abd Did not show any acute pathology, only lymphadenopathy which is worse than before Hopefully nd/c tomorrow VTE prophylaxis: heparin Diet: Regular Code Status: Full Code Total Time Total Time Spent Total Time Spent (In Minutes): 35 Discharge Plan Discharge Items Patient Disposition: Home - Self-Care Reason For Visit: NAUSEA / VOMITING, ABDOMINAL PAIN Discharge Diagnosis: CLL Activity: Resume your previous activity Non-emergency contact: Primary Care Provider and Oncologist Call non-emergency contact if: you have any medication questions Follow-up/Referrals: Valeria Nuñez MD [Primary Care Provider] - Diet: Regular Addtl Attending Provider Instructions: please make appointment to follow up with your Oncologist Pending Studies at Discharge: No Stand-Alone Forms: My [email or web address], Smoking Cessation Medications and DC Order Prescriptions: Continued cyclobenzaprine 10 mg tablet 10 mg PO TID 90 Days Qty: 270 3RF Rx Instructions: Medication needed muscle spasms from chronic pain: Cervical and lumbar spine spondylosis, as well as chronic lymphocytic leukemia and muscle spasms from chemotherapy. Also Fibromyalgia, and ankylosing spondylitis jqyerujsah-mrdvkmyowwajp-azvu 50-325-40 mg tablet 1 tab PO TID PRN (Reason: TENSION HEADACHES) Qty: 90 3RF nitroglycerin 400 mcg/spray aerosol,spray 1 spray sublingual Q5M PRN (Reason: chest pain) Qty: 4.1 1RF metoprolol tartrate 50 mg tablet 50 mg PO TID PRN (Reason: tachycardia) Qty: 90 3RF Patient Comments: pt takes med for prn tachycardia not for high blood pressure Rx Instructions: Take 1 -1 1/2 tablets as needed for high blood pressure. pantoprazole 40 mg tablet,delayed release (DR/EC) 40 mg PO BIDM Qty: 180 pilocarpine HCl [Salagen (pilocarpine)] 5 mg tablet 5 mg PO TID potassium chloride 10 mEq capsule, extended release 20 meq PO BID Qty: 360 3RF metoprolol succinate 100 mg tablet extended release 24 hr See Rx Instructions PO .COMPLEX Qty: 225 3RF Rx Instructions: TAKES 150 MG QAM, THEN 100 MG QPM. orally; metoprolol succinate 25 mg tablet extended release 24 hr 25 mg PO DAILY PRN (Reason: palpitations) Qty: 90 3RF levothyroxine [Synthroid] 175 mcg tablet 175 mcg PO DAILYBB Rx Instructions: "BRAND NECESSARY' [place]ovy Syringe 225 mg/1.5 mL syringe 225 mg subcut MONTHLY Qty: 1.5 11RF sumatriptan succinate 100 mg tablet 100 mg PO DAILY MDD 4 TABS/24 HOURS PRN (Reason: migraine headache) Qty: 9 5RF Rx Instructions: MAY REPEAT IF CONTINUES FOR 1.5 HOURS. ketorolac 10 mg tablet 10 mg PO TID 7 Days Qty: 21 5RF Rx Instructions: Takes 7 days a month nabumetone 750 mg tablet 750 mg PO BID Qty: 60 5RF Rx Instructions: TAKES FOR 3 WEEKS, THEN 1 WEEK TORADOL, THEN REPEAT SCHEDULE ondansetron HCl 8 mg tablet 8 mg PO TID PRN (Reason: NAUSEA/VOMITING) Qty: 90 3RF promethazine 25 mg tablet 25 mg PO Q4H PRN (Reason: nausea and vomiting) 30 Days Qty: 60 5RF Rx Instructions: Give patient 60 pills to last one month. meclizine 25 mg tablet 25 mg PO QID 30 Days Qty: 120 5RF zolpidem 10 mg tablet 10 mg PO HS PRN (Reason: Sleep) Qty: 30 5RF Rx Instructions: Take 1 hour before bedtime. ofloxacin [Ocuflox] 0.3 % drops 1 drops OP QID Rx Instructions: BOTH EYES ketorolac [Acular] 0.5 % drops 1 drp OPB TID olopatadine 0.1 % drops 1 drp OPB BID triamcinolone acetonide [24 Hour Nasal Allergy] 55 mcg Aerosol,[place] 1 spray INTRANASAL HS famotidine [Pepcid AC] 20 mg Tablet 20 mg PO BID PRN (Reason: Heartburn) alum-mag hydroxide-simeth 200-200-20 mg/5 mL Suspension 15 ml PO QID PRN (Reason: Gastric Reflux) timolol maleate [Istalol] 0.5 % drops, once daily 1 drp OPHTHALMIC (EYE) BID Rx Instructions: one drop in each eye, twice per day. cetirizine [Zyrtec] 10 mg Tablet 10 mg PO QAM acyclovir 400 mg Tablet 400 mg PO TID Rx Instructions: TAKES WHILE ON VENCLEXTA. diphenhydramine HCl [Benadryl] 25 mg Capsule 25 mg PO DAILY PRN (Reason: Allergy Symptoms) pseudoephedrine HCl [Sudafed] 30 mg Tablet 30 mg PO DIRECTED PRN (Reason: Congestion) oxymetazoline [Afrin (oxymetazoline)] 0.05 % [place],Non-Aerosol 2 spray INTRANASAL Q12H PRN (Reason: Congestion) guaifenesin [Mucinex] 600 mg Tablet Extended Release 12hr 600 mg PO Q12H PRN (Reason: Congestion) Magic Swizzle 1 dose PO DIRECTED PRN (Reason: MOUTH SORE FROM CHEMO) prednisolone acetate [Pred Forte] 1 % Drops,Suspension 1 drp OPHTHALMIC (EYE) TID Refresh Optive Advanced (PF) 0.5-1-0.5 % Dropperette 1 drp OPHTHALMIC (EYE) DIRECTED PRN (Reason: Dry Eyes) furosemide 40 mg tablet 60 mg PO QAM morphine 30 mg tablet extended release 30 mg PO .Q8-10H PRN (Reason: Pain) oxycodone 20 mg tablet 20 mg PO Q4H PRN (Reason: Breakthrough Pain) Discontinued amoxicillin 500 mg capsule 500 mg PO TID Rx Instructions: STARTED 08/14/23 FOR 10 DAYS Discharge Orders: Discharge Order (Routine); Ordered 08/26/23 Ordered By: Lydia Monaco/Other Patient Handouts: ED Gastroenteritis, Viral (Adult) Admission Data Admit Date/Time: 08/20/23 05:54 Attending Provider: Lydia Swain Admit Provider: Myra Giraldo Primary Care Provider: Valeria Nuñez Other Providers: Marcos Lawson; Valeria Nuñez Other Interventions: Discharge Summary Assessment (RN) Last Done: 08/26/23 10:54 Coding Level of Care Code 55553 INP/OBS DISCH >30 MIN Diagnoses Small lymphocytic lymphoma C83.00 Neutropenia D70.9 Gastroenteritis K52.9 Anemia D64.9 Time Spent (min) 35
== END 2023-08-26 12:25 | disposition home or self-care (01) | DRG 392 ==
LOC: ED 00:36 → SUATTDRO 05:54 → EDINP 05:54 → 2N 06:22

== ENCOUNTER 2024-03-25 09:41 | Inpatient (IN) ==
--- NOTE | 2024-03-25 10:07 | Emergency Department Note ---
Impression & Plan CLL (chronic lymphocytic leukemia) ADMIT ED Provider Note HPI: History obtained from Patient. The patient is a 68-year-old female with history of chronic lymphocytic leukemia, currently on chemotherapy, presents the emergency department from her hematology/oncology provider office over concern for elevated potassium and severe leukocytosis noted on lab work today. Patient states that recently she is also had sinus pressure/sinus congestion and states that she has been dealing with some generalized abdominal pain over about the past week. Patient states she has constant nausea but denies any vomiting. On arrival here to the ED otherwise the patient appears to be in no acute distress, she is hemodynamically stable on arrival. ROS: - Per HPI Differential Diagnosis: Metastatic disease within the abdomen/pelvis, acute coronary syndrome, pulmonary embolism, metastatic disease to the lungs, tumor lysis syndrome, sepsis, pneumonia , amongst other potential pathologies. *Outpatient medications and allergy history reviewed. PE: General: Alert, Frail-appearing, no acute distress HEENT: Normocephalic, trachea midline, Edematous nasal mucosa with clear rhinorrhea Eyes: Extraocular eye movement is intact, no scleral erythema Pulmonary: Clear to auscultation bilaterally, no wheezing Cardio: Regular rate and rhythm GI: Abdomen is soft to palpation, There is left-sided abdominal tenderness to palpation without any guarding or rigidity : No suprapubic tenderness MSK: No evidence of trauma or malformation of the extremities, no edema Skin: No evidence of rash Neuro: Alert, no focal deficits Psychiatric: Cooperative INDEPENDENT INTERPRETATIONS: monitor tech: (As interpreted by myself): - An order was placed for continuous cardiac monitoring - Patient was noted to be in sinus rhythm with a rate of 75 EKG: (As interpreted by myself): Rate: 71 Rhythm: Normal sinus rhythm Intervals: Within normal limits ST changes: No ST elevation Time: 1025 Interventions provided in ED: -IV calcium gluconate, IV normal saline, IV cefepime Medical Decision Making: IV was established and lab work obtained, patient was placed on desk monitor. Lab work shows a white blood cell count of 247.89, hemoglobin is stable at 9.1, platelet count is normal at 161, CMP shows hyponatremia at 126, potassium is noted to be mildly elevated at 6.2, renal function otherwise appears to be intact. Troponin is negative. Procalcitonin is low at 0.05. Urinalysis does not show any evidence of infection, viral panel testing is negative. I did discuss the patient's presentation with her on-call hematology/oncology provider, Dr. Nuñez, She recommended that given the patient's abdominal pain and chest pain we obtained CT imaging of the chest and the abdomen/pelvis to evaluate for any large mass or metastatic disease. This was therefore obtained. Lymphadenopathy is noted consistent with the patient's history of CLL, otherwise there is no evidence of any critical findings on CT imaging of the chest or CT imaging of the abdomen pelvis per the interpreting radiologist. Patient was given calcium gluconate for hyperkalemia shortly after she arrived to the ER, her lab work does show potassium of 6.2. EKG does not show any evidence of peaked T waves or arrhythmia. I did discuss this with the patient's hematology/oncology provider, Dr. Nuñez, she does have concern for possible pseudohyperkalemia in the setting of normal renal function (related to the fragility of her blood cells from CLL) which can cause lysis on a spun blood sample resulting in false elevation of potassium. She recommended that a [id number]-fp-[id number] panel be obtained and therefore this was done. The patient's potassium on the [id number]-ut-[id number] panel was normal at 4.4. Therefore I suspect that the patient has pseudohyperkalemia. On my reassessment the patient states that she generally feels weak and she is having pain in her chest and abdomen, she does have hyponatremia today that is worse than her baseline and she is requesting admission. Blood cultures were drawn, patient was treated with broad-spectrum cefepime given her elevated white blood cell count. I discussed all of the above findings with the on-call hospitalist, Dr. Hatfield and the patient was placed for admission in stable condition. Consultants/Discussions held with other healthcare providers: -Hospitalist, Dr. Hatfield Disposition discussion held by myself with: -Patient Diagnosis: 1. Leukocytosis in the setting of CLL, acute on chronic 2. Hyponatremia, acute 3. Sinus congestion, acute 4. Chest pain, acute, nonspecific Disposition: ADMIT Mauricio Sue DO Emergency Medicine Past Med/Surg History Problem List (Updated 03/25/24 @ 16:43 by Mauricio Sue DO) Splenomegaly Hyponatremia current surgery has been cancelled x 3 due to this, pt. will have checked on 01/14/24 and will be seeing Dr. Nuñez at 12:15 Sinus infection Hyperkalemia SVT (supraventricular tachycardia) Scalp mass Left ankle pain Fibromyalgia Polyneuropathy Chronic headaches Concussion Knee effusion, left Gastroenteritis Neutropenia Lumbar spine pain Leg edema, left Herpes zoster Muscle spasm Mucous cyst of digit of left hand Trochanteric bursitis, right hip AC (acromioclavicular) joint arthritis Encounter for pre-operative examination Small lymphocytic lymphoma Dacryocystitis, chronic Neck stiffness Left eye pain Bilateral hip pain Numbness of right anterior thigh Mass of right thigh Rib pain on right side Carpal tunnel syndrome on both sides Brain tumor Posterior tibial tendon dysfunction (PTTD) of left lower extremity De Quervain's tenosynovitis, left Pes anserinus bursitis of left knee Cancer related pain Trigger finger of both hands Ganglion cyst of both hands Left knee DJD Vertigo (Acute) Venous insufficiency (chronic) (peripheral) History of PSVT (paroxysmal supraventricular tachycardia) (Acute) follows with Dr. Eaton--on metoprolol Somatic dysfunction of lower extremities (Acute) Segmental and somatic dysfunction of upper extremity (Acute) Segmental and somatic dysfunction of thoracic region (Acute) Segmental and somatic dysfunction of rib cage (Acute) Segmental and somatic dysfunction of lumbar region (Acute) Segmental and somatic dysfunction of abdomen and other regions (Acute) Sacral region somatic dysfunction (Acute) Pelvic somatic dysfunction (Acute) Palpitations (Acute) Migraine headache (Acute) Lymphocytic lymphoma, diffuse (Acute) Lumbar radiculopathy (Acute) Labile hypertension (Acute) Hypothyroidism (Acute) Edema (Acute) Dyslipidemia (Acute) Chronic musculoskeletal pain (Acute) Cervical somatic dysfunction (Acute) Cervical radiculopathy (Acute) Benign neoplasm of brain, unspecified (Acute) Degenerative joint disease of left knee (Chronic) Lumbar spinal stenosis (Chronic) Myofascial pain syndrome (Chronic) CLL (chronic lymphocytic leukemia) (Chronic) Sjoegren syndrome (Chronic) Ankylosing spondylitis (Chronic) History of thyroid cancer (Chronic) sx Medical History Hx of migraines Polyneuropathy Sjogren syndrome Venous insufficiency (chronic) (peripheral) Hx of thyroid cancer Fibromyalgia Edema Hx of concussion (10/2023) Chronic headaches Hyponatremia CLL (chronic lymphocytic leukemia) Ankylosing spondylitis Dyslipidemia Prediabetes Hypothyroidism Angina at rest History of atrial fibrillation Hx of atrial tachycardia Hx of supraventricular tachycardia Vertigo Brain tumor Carpal tunnel syndrome on both sides Small lymphocytic lymphoma Hx MRSA infection Maintenance chemotherapy Crutches as ambulation aid Chronic back pain Acid reflux Ulcerative colitis History of pulmonary embolus (PE) History of DVT (deep vein thrombosis) Temporomandibular joint disorder Glaucoma Thalassemia syndrome Surgical History H/O excision of mass (01/15/24) History of biopsy History of bilateral breast biopsy History of rectal sphincterotomy Status post laparotomy History of gynecologic surgery History of excision of pilonidal cyst History of knee surgery History of ERCP History of eye surgery History of wisdom tooth extraction History of root canal procedure History of tooth extraction History of esophagogastroduodenoscopy (EGD) Status post correction of deviated nasal septum (~1989) Status post nasal surgery (~1974) Status post glaucoma surgery H/O colonoscopy (2010) S/P tubal ligation History of throat surgery (2009) S/P AVERY-BSO (~1995) S/P cataract extraction Hx of cholecystectomy (~2010) History of thyroidectomy (~2002) History of tonsillectomy and adenoidectomy History of dilatation and curettage Family History Father Diabetes Hypertension Other No family history of adverse response to anesthesia Social History Smoking Status: Never smoker Second Hand Exposure: No; Do You Dip or Chew Tobacco: No; Hx Alcohol Use: No Hx Substance Use: No Preferred Language: Guatemalan Communication Ability: Effective Visual Impairment: No Limitations Hearing Ability: Normal Feed Preparation Operator Required: No Beliefs That Will Affect Care: None marital status: Current Living Situation: Spouse current occupational status: disabled Feels Safe at Home: Yes Assistive Devices: Crutches Allergies Allergies Allergy/AdvReac Type Severity Reaction Status Date / Time adhesive Allergy Intermediate Skin Verified 03/25/24 16:27 irritation, welts bacitracin Allergy Intermediate Rash, Verified 03/25/24 16:27 swelling, welts bee venom protein (honey bee) Allergy Intermediate Diffuse Verified 03/25/24 16:27 hives, dyspnea bromfenac Allergy Intermediate Eyelid Verified 03/25/24 16:27 swelling, Eye drops xibrom dicyclomine Allergy Intermediate Diffuse Verified 03/25/24 16:27 rash doxycycline Allergy Intermediate Hives Verified 03/25/24 16:27 lamotrigine Allergy Intermediate Welts Verified 03/25/24 16:27 lavender (Lavandula Allergy Intermediate affects Verified 03/25/24 16:27 angustifolia) breathing loteprednol Allergy Intermediate Intense Verified 03/25/24 16:27 eye burning mupirocin Allergy Intermediate Rash Verified 03/25/24 16:27 neomycin Allergy Intermediate Rash, Verified 03/25/24 16:28 swelling, welts polymyxin B Allergy Intermediate Rash, Verified 03/25/24 16:28 swelling, welts pregabalin Allergy Intermediate Hands/feet Verified 03/25/24 16:28 swelling, mouth sores sulfamethoxazole Allergy Intermediate Rash Verified 03/25/24 16:28 tetracycline Allergy Intermediate HIVES Verified 03/25/24 16:29 topiramate Allergy Intermediate Rash Verified 03/25/24 16:28 trimethoprim Allergy Intermediate Rash Verified 03/25/24 16:28 wool Allergy Intermediate Hives Verified 03/25/24 16:28 aspirin AdvReac Intermediate Diffuse Verified 03/25/24 16:28 bruising Bleach (Sodium Hypochlorite) AdvReac Intermediate Breathing Verified 03/25/24 16:28 affected ibuprofen AdvReac Intermediate Diffuse Verified 03/25/24 16:28 bruising trimethobenzamide AdvReac Intermediate Muscle Verified 03/25/24 16:28 contraction PABA Allergy Intermediate Rash Uncoded 03/25/24 16:28 patcholi oil Allergy Intermediate Difficulty Uncoded 03/25/24 16:28 Breathing surgical latesha Allergy Intermediate Redness, Uncoded 03/25/24 16:28 infection from latesha Home Meds Home Medications Medication Instructions Recorded Confirmed pantoprazole 40 mg tablet,delayed 40 mg PO QAM #180 tabs 12/26/18 03/11/24 release ofloxacin 0.3 % eye drops (Ocuflox) 1 drops ophthalmic (eye) QID 03/24/19 03/11/24 Magic Swizzle 1 dose PO DIRECTED PRN MOUTH 04/15/21 03/11/24 SORE FROM CHEMO cetirizine 10 mg tablet (Zyrtec) 10 mg PO QAM 04/15/21 03/25/24 diphenhydramine HCl 25 mg capsule 25 mg PO DAILY PRN Allergy Symptoms 04/15/21 03/25/24 (Benadryl) guaifenesin 600 mg tablet, 600 mg PO Q12H PRN Congestion 04/15/21 03/11/24 extended release 12 hr (Mucinex) oxymetazoline 0.05 % nasal spray 2 spray intranasal UD PRN 04/15/21 03/11/24 (Afrin (oxymetazoline)) Congestion pseudoephedrine HCl 30 mg tablet 30 mg PO DIRECTED PRN Congestion 04/15/21 03/11/24 (Sudafed) famotidine 20 mg tablet (Pepcid AC) 20 mg PO BID PRN Heartburn 07/06/21 03/25/24 ketorolac 0.5 % eye drops (Acular) 1 drp OPB TID 07/06/21 03/11/24 olopatadine 0.1 % eye drops 1 drp OPB BID 07/06/21 03/11/24 levothyroxine 175 mcg tablet 175 mcg PO DAILYBB 08/27/22 03/11/24 (Synthroid) timolol maleate 0.5 % once daily 1 drp ophthalmic (eye) BID 11/20/22 03/11/24 eye drops (Istalol) carboxymethyl 0.5 %-glycerin 1 1 drp ophthalmic (eye) DIRECTED 08/20/23 03/11/24 %-polysorb 80 0.5 %-PF eye PRN Dry Eyes dropperette (Refresh Optive Advanced (PF)) acyclovir 400 mg tablet 400 mg PO TID 09/17/23 03/25/24 pilocarpine HCl 5 mg tablet 5 mg PO QID 09/17/23 03/11/24 (Salagen (pilocarpine)) triamcinolone acetonide 55 55 mcg intranasal HS 01/09/24 03/11/24 mcg/actuation nasal spray,aerosol loperamide 2 mg capsule 2 mg PO Q6H PRN Diarrhea 01/15/24 03/11/24 zolpidem 10 mg tablet (Ambien) 10 mg PO HS PRN Sleep 01/15/24 03/11/24 zanubrutinib 80 mg capsule 80 mg PO DAILY 03/11/24 03/11/24 (Brukinsa) Previous Rx's Medication Instructions Recorded fremanezumab-vfrm 225 mg/1.5 mL 225 mg (1.5 mL) subcut MONTHLY 07/28/23 subcutaneous syringe (Ajovy #1.5 mL Syringe) meclizine 25 mg tablet 25 mg PO QID 30 days #120 tabs 07/28/23 nabumetone 750 mg tablet 750 mg PO BID #60 tabs 07/28/23 ondansetron HCl 8 mg tablet 8 mg PO TID PRN NAUSEA/VOMITING 07/28/23 #90 tabs promethazine 25 mg tablet 25 mg PO Q4H PRN nausea and 07/28/23 vomiting 1 month #60 tabs cyclobenzaprine 10 mg tablet 10 mg PO TID muscle spasms 90 days 09/03/23 #270 tabs isvqziblse-pqvrwpnetyayx-lgilthjs 1 tab PO TID PRN TENSION HEADACHES 01/07/24 50 mg-325 mg-40 mg tablet #90 tabs furosemide 40 mg tablet 60 mg (1.5 x 40 mg) PO QAM PRN 02/24/24 swelling #20 tabs metoprolol succinate 100 mg See Rx Instructions PO .COMPLEX 02/24/24 tablet,extended release 24 hr #225 tabs metoprolol tartrate 50 mg tablet 50 mg PO TID PRN tachycardia #90 02/24/24 tabs nitroglycerin 400 mcg/spray See Rx Instructions .Route 02/24/24 translingual .COMPLEX #4.9 grams potassium chloride 10 mEq 20 meq (2 x 10 mEq) PO BID #360 02/24/24 capsule,extended release caps sumatriptan succinate 100 mg 100 mg PO DAILY PRN migraine 02/24/24 tablet (Imitrex) headache #9 tabs morphine 30 mg tablet,extended 30 mg PO BID PRN Pain #60 tabs 03/08/24 release oxycodone 20 mg tablet 20 mg PO Q4H Breakthrough Pain #90 03/08/24 tabs ketorolac 10 mg tablet 10 mg PO TID 7 days #21 tabs 03/09/24 Results & Data (ED) Vital Signs Vital Signs - 24 hr 03/25/24 09:49 03/25/24 10:00 03/25/24 10:29 Temperature 36.4 C L Temperature Source Oral Pulse Rate 74 76 71 Pulse Rate [Right Finger] Pulse Rhythm Respiratory Rate 20 17 Respiratory Effort / Characteristics Non-Labored Respiratory Depth Normal Respiratory Pattern Regular Blood Pressure 120/61 157/77 H Blood Pressure [Left Arm] Blood Pressure Mean 80 104 Blood Pressure Mean [Left Arm] Pulse Oximetry 100 98 Oxygen Delivery Method Room Air Sepsis Recent Fever Within 48 Hours No Sepsis New/Unexplained Change in Mental Status N/A Sepsis Action Taken by Nursing No Action Required 03/25/24 10:30 03/25/24 10:36 03/25/24 11:00 Temperature Temperature Source Pulse Rate 69 63 67 Pulse Rate [Right Finger] Pulse Rhythm Regular Respiratory Rate 18 16 20 Respiratory Effort / Characteristics Respiratory Depth Respiratory Pattern Blood Pressure 150/70 H 130/67 Blood Pressure [Left Arm] Blood Pressure Mean 96 101 Blood Pressure Mean [Left Arm] Pulse Oximetry 94 Oxygen Delivery Method Room Air Sepsis Recent Fever Within 48 Hours Sepsis New/Unexplained Change in Mental Status Sepsis Action Taken by Nursing 03/25/24 11:23 03/25/24 11:24 03/25/24 12:00 Temperature Temperature Source Pulse Rate 67 72 Pulse Rate [Right Finger] 66 Pulse Rhythm Respiratory Rate 20 12 17 Respiratory Effort / Characteristics Non-Labored Spontaneous Respiratory Depth Normal Respiratory Pattern Regular Blood Pressure 123/61 125/68 Blood Pressure [Left Arm] 123/61 Blood Pressure Mean 81 74 Blood Pressure Mean [Left Arm] 81 Pulse Oximetry 99 97 99 Oxygen Delivery Method Room Air Sepsis Recent Fever Within 48 Hours Sepsis New/Unexplained Change in Mental Status Sepsis Action Taken by Nursing 03/25/24 12:52 03/25/24 13:00 03/25/24 13:49 Temperature Temperature Source Pulse Rate 71 71 Pulse Rate [Right Finger] 72 Pulse Rhythm Respiratory Rate 26 H 16 20 Respiratory Effort / Characteristics Non-Labored Spontaneous Respiratory Depth Normal Respiratory Pattern Regular Blood Pressure 128/72 130/70 Blood Pressure [Left Arm] 121/72 Blood Pressure Mean 89 80 Blood Pressure Mean [Left Arm] 88 Pulse Oximetry 98 96 97 Oxygen Delivery Method Room Air Sepsis Recent Fever Within 48 Hours Sepsis New/Unexplained Change in Mental Status Sepsis Action Taken by Nursing 03/25/24 14:01 03/25/24 14:30 03/25/24 14:30 Temperature Temperature Source Pulse Rate 69 71 72 Pulse Rate [Right Finger] Pulse Rhythm Respiratory Rate 22 14 19 Respiratory Effort / Characteristics Respiratory Depth Respiratory Pattern Blood Pressure 126/66 121/70 121/70 Blood Pressure [Left Arm] Blood Pressure Mean 92 81 81 Blood Pressure Mean [Left Arm] Pulse Oximetry 95 97 97 Oxygen Delivery Method Sepsis Recent Fever Within 48 Hours Sepsis New/Unexplained Change in Mental Status Sepsis Action Taken by Nursing 03/25/24 14:40 03/25/24 16:19 Temperature Temperature Source Pulse Rate 69 Pulse Rate [Right Finger] 70 Pulse Rhythm Respiratory Rate 18 Respiratory Effort / Characteristics Non-Labored Respiratory Depth Normal Respiratory Pattern Regular Blood Pressure Blood Pressure [Left Arm] 134/71 Blood Pressure Mean Blood Pressure Mean [Left Arm] 92 Pulse Oximetry 98 Oxygen Delivery Method Room Air Sepsis Recent Fever Within 48 Hours Sepsis New/Unexplained Change in Mental Status Sepsis Action Taken by Nursing Laboratory Data 03/25/24 10:40 03/25/24 14:28 Lab Results 03/25/24 03/25/24 03/25/24 Range/Units 10:40 11:19 11:38 WBC 247.89 H* (4.8-10.8) K/ul RBC 4.49 (4.20-5.40) M/uL Hgb 9.1 L (12.0-16.0) g/dl POC Hgb 8.8 L (12.0-16.0) g/dl Hct 30.5 L (37.0-47.0) % POC Hct 26 L (37-47) % MCV 67.9 L (80.0-100.0) fL MCH 20.3 L (25.0-34.0) pg MCHC 29.8 L (32.0-36.0) g/dL RDW Std Deviation 41.1 (36.4-46.3) fL RDW Coeff of Jillian 18.7 H (11.5-14.5) % Plt Count 161 (130-400) K/uL MPV 9.6 (9.4-12.4) fL Immature Gran % (Auto) 0.2 % Neut % (Auto) 1.5 % Lymph % (Auto) 88.2 % Walker % (Auto) 9.8 % Eos % (Auto) 0.0 % Baso % (Auto) 0.3 % Neut # (Auto) 3.61 (1.40-6.50) K/uL Lymph # (Auto) 218.74 H (1.20-3.40) K/uL Walker # (Auto) 24.31 H (0.11-0.59) K/uL Eos # (Auto) 0.11 (0.00-0.50) K/uL Baso # (Auto) 0.74 H (0.00-0.20) K/uL Immature Gran # (Auto) 0.38 H (0.01-0.20) K/uL Polychromasia 1+ Hypochromasia Present Tear Drop Cells 1+ Ovalocytes 1+ Acanthocytes (Spur) 1+ PT 10.6 (9.0-12.0) Seconds INR 1.0 (0.9-1.1) POC Sodium 129 L (135-144) mmol/L Sodium 126 L (136-145) mmol/L POC Potassium 4.4 (3.3-5.0) mmol/L Potassium 6.2 H* (3.5-5.1) mmol/L POC Chloride 97 L (101-112) mmol/L Chloride 93 L (98-107) mmol/L Carbon Dioxide 27 (21-32) mmol/L POC Total CO2 24 (24-31) mmol/L Anion Gap 6 (3-11) POC Anion Gap 14.0 L (16-25) mmol/L POC BUN 5 L (7-18) mg/dl BUN 8 (6-23) mg/dl Creatinine 0.65 (0.6-1.2) mg/dl POC Creatinine 0.6 (0.6-1.3) mg/dl Est Cr Clr Drug Dosing 71.2 ml/min eGFR 96.44 BUN/Creatinine Ratio 12.3 (10-20) Glucose 87 (70-99(Fasting)) mg/dl POC Glucose (other) 83 (70-99) mg/dl Uric Acid (2.6-7.2) mg/dl Calcium 8.7 (8.6-10.3) mg/dl POC Ioniz Calcium Jackson 1.08 L (1.12-1.32) mmol/l Phosphorus (2.5-4.9) mg/dl Total Bilirubin 0.9 (0.2-1.0) mg/dl AST 29 (13-39) U/L ALT 26 (7-52) U/L Alkaline Phosphatase 160 H (34-104) U/L Troponin I High Sens 4.2 (0-14) pg/ml Total Protein 6.8 (6.0-8.3) gm/dl Albumin 4.6 (3.4-5.0) gm/dl Globulin 2.2 L (2.5-4.0) gm/dl Albumin/Globulin Ratio 2.1 H (0.9-2) Lipase 6 L (11-82) U/L Procalcitonin 0.05 (0-0.5) ng/ml Urine Color Urine Appearance (Clear) Urine pH (4.5-7.5) Ur Specific [place] (1.000-1.030) Urine Protein (Negative) Urine Glucose (UA) (Negative) Urine Ketones (Negative) Urine Blood (Negative) Urine Nitrite (Negative) Urine Bilirubin (Negative) Urine Urobilinogen (Negative) Ur Leukocyte Esterase (Negative) Adenovirus (PCR) Not Detected (NotDetected) B. pertussis DNA (PCR) Not Detected (NotDetected) B.parapertussis DNA PCR Not Detected (NotDetected) C. pneumoniae DNA (PCR) Not Detected (NotDetected) Coronavirus OC43 (PCR) Not Detected (NotDetected) Coronavirus HKU1 (PCR) Not Detected (NotDetected) Coronavirus 229E (PCR) Not Detected (NotDetected) SARS-CoV-2 (PCR) Not Detected (NotDetected) Coronavirus NL63 (PCR) Not Detected (NotDetected) Human Metapneumovir PCR Not Detected (NotDetected) Influenza Type A (PCR) Not Detected (NotDetected) Influenza Type B (PCR) Not Detected (NotDetected) M. pneumoniae (PCR) Not Detected (NotDetected) Parainfluenza 1 (PCR) Not Detected (NotDetected) Parainfluenza 2 (PCR) Not Detected (NotDetected) Parainfluenza 3 (PCR) Not Detected (NotDetected) Parainfluenza 4 (PCR) Not Detected (NotDetected) RSV (PCR) Not Detected (NotDetected) Entero/Rhino (PCR) Not Detected (NotDetected) 03/25/24 03/25/24 03/25/24 Range/Units 12:33 14:28 16:07 WBC (4.8-10.8) K/ul RBC (4.20-5.40) M/uL Hgb (12.0-16.0) g/dl POC Hgb 9.9 L (12.0-16.0) g/dl Hct (37.0-47.0) % POC Hct 29 L (37-47) % MCV (80.0-100.0) fL MCH (25.0-34.0) pg MCHC (32.0-36.0) g/dL RDW Std Deviation (36.4-46.3) fL RDW Coeff of Jillian (11.5-14.5) % Plt Count (130-400) K/uL MPV (9.4-12.4) fL Immature Gran % (Auto) % Neut % (Auto) % Lymph % (Auto) % Walker % (Auto) % Eos % (Auto) % Baso % (Auto) % Neut # (Auto) (1.40-6.50) K/uL Lymph # (Auto) (1.20-3.40) K/uL Walker # (Auto) (0.11-0.59) K/uL Eos # (Auto) (0.00-0.50) K/uL Baso # (Auto) (0.00-0.20) K/uL Immature Gran # (Auto) (0.01-0.20) K/uL Polychromasia Hypochromasia Tear Drop Cells Ovalocytes Acanthocytes (Spur) PT (9.0-12.0) Seconds INR (0.9-1.1) POC Sodium 131 L (135-144) mmol/L Sodium 128 L (136-145) mmol/L POC Potassium 4.3 (3.3-5.0) mmol/L Potassium 8.0 H* D (3.5-5.1) mmol/L POC Chloride 96 L (101-112) mmol/L Chloride 99 (98-107) mmol/L Carbon Dioxide 27 (21-32) mmol/L POC Total CO2 25 (24-31) mmol/L Anion Gap 2 L (3-11) POC Anion Gap 16.0 (16-25) mmol/L POC BUN 5 L (7-18) mg/dl BUN 7 (6-23) mg/dl Creatinine 0.57 L (0.6-1.2) mg/dl POC Creatinine 0.7 (0.6-1.3) mg/dl Est Cr Clr Drug Dosing 81.2 ml/min eGFR 99.54 BUN/Creatinine Ratio 12.3 (10-20) Glucose 92 (70-99(Fasting)) mg/dl POC Glucose (other) 87 (70-99) mg/dl Uric Acid 3.5 (2.6-7.2) mg/dl Calcium 8.0 L (8.6-10.3) mg/dl POC Ioniz Calcium [place] 1.14 (1.12-1.32) mmol/l Phosphorus 4.0 (2.5-4.9) mg/dl Total Bilirubin (0.2-1.0) mg/dl AST (13-39) U/L ALT (7-52) U/L Alkaline Phosphatase (34-104) U/L Troponin I High Sens (0-14) pg/ml Total Protein (6.0-8.3) gm/dl Albumin (3.4-5.0) gm/dl Globulin (2.5-4.0) gm/dl Albumin/Globulin Ratio (0.9-2) Lipase (11-82) U/L Procalcitonin (0-0.5) ng/ml Urine Color Yellow Urine Appearance Clear (Clear) Urine pH 6.5 (4.5-7.5) Ur Specific [place] 1.006 (1.000-1.030) Urine Protein Negative (Negative) Urine Glucose (UA) Negative (Negative) Urine Ketones Negative (Negative) Urine Blood Negative (Negative) Urine Nitrite Negative (Negative) Urine Bilirubin Negative (Negative) Urine Urobilinogen Negative (Negative) Ur Leukocyte Esterase Negative (Negative) Adenovirus (PCR) (NotDetected) B. pertussis DNA (PCR) (NotDetected) B.parapertussis DNA PCR (NotDetected) C. pneumoniae DNA (PCR) (NotDetected) Coronavirus OC43 (PCR) (NotDetected) Coronavirus HKU1 (PCR) (NotDetected) Coronavirus 229E (PCR) (NotDetected) SARS-CoV-2 (PCR) (NotDetected) Coronavirus NL63 (PCR) (NotDetected) Human Metapneumovir PCR (NotDetected) Influenza Type A (PCR) (NotDetected) Influenza Type B (PCR) (NotDetected) M. pneumoniae (PCR) (NotDetected) Parainfluenza 1 (PCR) (NotDetected) Parainfluenza 2 (PCR) (NotDetected) Parainfluenza 3 (PCR) (NotDetected) Parainfluenza 4 (PCR) (NotDetected) RSV (PCR) (NotDetected) Entero/Rhino (PCR) (NotDetected) Administered Medications Discontinued Medications Sodium Chloride (Nss) 1,000 mls @ 999 mls/hr IV .Q1H1M ONE Stop: 03/25/24 10:58 Last Infusion: 03/25/24 11:42 Dose: Infused Documented By: Admin: 03/25/24 10:40 Dose: 999 mls/hr Documented By: ANT Calcium Gluconate () 1,000 mg in 60 mls @ 240 mls/hr IV NOW STA Stop: 03/25/24 10:18 Last Infusion: 03/25/24 10:55 Dose: Infused Documented By: Admin: 03/25/24 10:40 Dose: 240 mls/hr Documented By: ANT Cefepime HCl (Maxipime 2000mg) 2,000 mg in 20 mls @ 5 mls/min IV NOW STA; Protocol Stop: 03/25/24 13:52 Last Admin: 03/25/24 14:41 Dose: 5 mls/min Documented By: MAYA Ioversol (Optiray 320 100ml) 94 ml IV ONCE ONE Stop: 03/25/24 12:42 Last Admin: 03/25/24 12:42 Dose: 94 ml Documented By: NINA Imaging Data Radiologist's Impression: Abdomen/Pelvis CT 03/25/24 11:13 CT OF THE ABDOMEN AND PELVIS WITH CONTRAST CLINICAL HISTORY: Left sided abdominal pain, hx CLL COMPARISON STUDY: CT of the abdomen and pelvis December 08, 2023. TECHNIQUE: Following IV administration of 94 mL of Optiray, axial images of the abdomen and pelvis were obtained from the lung bases to the proximal femurs. Images were reviewed in the axial, sagittal, and coronal planes. IV contrast was administered without complication. Automated exposure control was utilized for the study. A dose lowering technique was utilized adhering to the principles of ALARA. FINDINGS: No pneumatosis, free air or portal venous gas is present. Splenomegaly is unchanged. Abdominal and pelvic lymphadenopathy is similar to CT of January 07, 2024. Conglomerate aziza hepatis lymph nodes measure 8.8 x 4.4 cm. There are no hepatic lesions. Mild biliary ductal dilatation is unchanged and likely related to cholecystectomy. Kidneys, adrenal glands and pancreas are unremarkable. There is no evidence for a bowel obstruction. There is a moderate amount of stool within the colon. No bowel wall thickening is identified. There are no fluid collections. There are no urinary calculi. Index left external iliac lymph node measuring 4.4 x 2.6 cm, unchanged. No new sites of lymphadenopathy are identified. Major vasculature is patent. IMPRESSION: 1. No acute process within the abdomen or pelvis. 2. Stable abdominal and pelvic lymphadenopathy consistent with the provided history of CLL. No change in splenomegaly. 3. Moderate amount of stool within the colon. No evidence for a bowel obstruction. ACT 112: Negative or not required by law. Electronically signed by: Sylvain Lacey M.D. 03/25/2024 1:[address] 03/25/24 11:59 CT OF THE CHEST WITH IV CONTRAST CLINICAL HISTORY: Upper abdominal pain, hx CLL. COMPARISON STUDY: Chest CT January 07, 2024. TECHNIQUE: Following IV administration of 94 mL of Optiray, helical axial images of the chest were obtained. Sagittal and coronal reconstructions were viewed as well as maximal intensity projections on an independent 3-D workstation. Automated exposure control was utilized for the study. A dose lowering technique was utilized adhering to the principles of ALARA. CT DOSE: 1888.01 mGy.cm FINDINGS: Enlarged supraclavicular, axillary and bilateral hilar lymph nodes are similar to CT of January 07, 2024. Index left axillary node on image 90 of 245 measures 3.1 x 1.8 cm, previously 3.1 x 1.8 cm. A right supraclavicular lymph node on image 18 measures 2 x 1.5 cm, previously 2.2 x 1.5 cm. There is no pneumothorax or pleural effusion. There is no pericardial effusion. No suspicious pulmonary nodules are present. There is no consolidation to suggest pneumonia. Abdomen and pelvis CT will be reported separately. IMPRESSION: 1. No acute intrathoracic findings. 2. No significant change in lower cervical and thoracic lymphadenopathy since CT of January 07, 2024. This is consistent with the provided history of CLL. ACT 112: Negative or not required by law. Electronically signed by: Sylvain Lacey M.D. 03/25/2024 1:09 PM Discharge Plan Visit Data Chief Complaint: Illness Stated Complaint: SINUS INF, SORE THRT, ABD, LIVER, SPLEEN PAIN ED Provider: Mauricio Sue Discharge Problem: CLL (chronic lymphocytic leukemia) Forms Stand Alone Forms: My [facility] Capsule[facility]fm Prescriptions Prescriptions: No Action cyclobenzaprine 10 mg tablet 10 mg PO TID 90 Days Qty: 270 3RF Rx Instructions: Medication needed muscle spasms from chronic pain: Cervical and lumbar spine spondylosis, as well as chronic lymphocytic leukemia and muscle spasms from chemotherapy. Also Fibromyalgia, and ankylosing spondylitis [id number] 50-325-40 mg tablet 1 tab PO TID PRN (Reason: TENSION HEADACHES) Qty: 90 2RF sumatriptan succinate [Imitrex] 100 mg tablet 100 mg PO DAILY MDD 4 TABS/24 HOURS PRN (Reason: migraine headache) Qty: 9 2RF Rx Instructions: MAY REPEAT IF CONTINUES FOR 1.5 HOURS. morphine 30 mg tablet extended release 30 mg PO BID PRN (Reason: Pain) Qty: 60 0RF oxycodone 20 mg tablet 20 mg PO Q4H Qty: 90 0RF ketorolac 10 mg tablet 10 mg PO TID 7 Days Qty: 21 5RF Rx Instructions: Takes 7 days a month- other 3 weeks takes relafen pantoprazole 40 mg tablet,delayed release (DR/EC) 40 mg PO QAM Qty: 180 pilocarpine HCl [Salagen (pilocarpine)] 5 mg tablet 5 mg PO QID levothyroxine [Synthroid] 175 mcg tablet 175 mcg PO DAILYBB Rx Instructions: "BRAND NECESSARY' [place] Syringe 225 mg/1.5 mL syringe 225 mg subcut MONTHLY Qty: 1.5 11RF Patient Comments: on hold at present 09/22/23 Rx Instructions: last taken in november 2023- possibly week nabumetone 750 mg tablet 750 mg PO BID Qty: 60 5RF Rx Instructions: TAKES FOR 3 WEEKS, THEN 1 WEEK TORADOL, THEN REPEAT SCHEDULE ondansetron HCl 8 mg tablet 8 mg PO TID PRN (Reason: NAUSEA/VOMITING) Qty: 90 3RF promethazine 25 mg tablet 25 mg PO Q4H PRN (Reason: nausea and vomiting) 30 Days Qty: 60 5RF Rx Instructions: Give patient 60 pills to last one month. meclizine 25 mg tablet 25 mg PO QID 30 Days Qty: 120 5RF ofloxacin [Ocuflox] 0.3 % drops 1 drops OP QID Rx Instructions: BOTH EYES furosemide 40 mg tablet 60 mg PO QAM PRN (Reason: swelling) Qty: 20 1RF nitroglycerin 400 mcg/spray spray,non-aerosol See Rx Instructions .ROUTE .COMPLEX Qty: 4.9 1RF Dose Instruction: USE 1 SPRAY SUBLINGUALLY EVERY 5 MINUTES NEEDED FOR CHEST PAIN Rx Instructions: USE 1 SPRAY SUBLINGUALLY EVERY 5 MINUTES NEEDED FOR CHEST PAIN metoprolol succinate 100 mg tablet extended release 24 hr See Rx Instructions PO .COMPLEX Qty: 225 3RF Rx Instructions: TAKES 150 MG QAM, THEN 100 MG QPM. orally; metoprolol tartrate 50 mg tablet 50 mg PO TID PRN (Reason: tachycardia) Qty: 90 3RF Patient Comments: pt takes med for prn tachycardia not for high blood pressure potassium chloride 10 mEq capsule, extended release 20 meq PO BID Qty: 360 3RF ketorolac [Acular] 0.5 % drops 1 drp OPB TID olopatadine 0.1 % drops 1 drp OPB BID famotidine [Pepcid AC] 20 mg Tablet 20 mg PO BID PRN (Reason: Heartburn) timolol maleate [Istalol] 0.5 % drops, once daily 1 drp OPHTHALMIC (EYE) BID Rx Instructions: one drop in each eye, twice per day. cetirizine [Zyrtec] 10 mg Tablet 10 mg PO QAM diphenhydramine HCl [Benadryl] 25 mg Capsule 25 mg PO DAILY PRN (Reason: Allergy Symptoms) pseudoephedrine HCl [Sudafed] 30 mg Tablet 30 mg PO DIRECTED PRN (Reason: Congestion) oxymetazoline [Afrin (oxymetazoline)] 0.05 % [place],Non-Aerosol 2 spray INTRANASAL UD PRN (Reason: Congestion) Rx Instructions: q4-6 h guaifenesin [Mucinex] 600 mg Tablet Extended Release 12hr 600 mg PO Q12H PRN (Reason: Congestion) Magic Swizzle 1 dose PO DIRECTED PRN (Reason: MOUTH SORE FROM CHEMO) acyclovir 400 mg tablet 400 mg PO TID Patient Comments: Rx Instructions: TAKES WHILE ON VENCLEXTA. Refresh Optive Advanced (PF) 0.5-1-0.5 % Dropperette 1 drp OPHTHALMIC (EYE) DIRECTED PRN (Reason: Dry Eyes) triamcinolone acetonide 55 mcg/actuation Aerosol 55 mcg INTRANASAL HS Rx Instructions: 2 sprays each nostril loperamide 2 mg Capsule 2 mg PO Q6H PRN (Reason: Diarrhea) Rx Instructions: OK to take per Dr Hubbard zolpidem [Ambien] 10 mg tablet 10 mg PO HS PRN (Reason: Sleep) Rx Instructions: Take 1 hour before bedtime. Brukinsa 80 mg Capsule 80 mg PO DAILY Referrals Referrals: PCP,NO [Primary Care Provider] -
[2024-03-25] MEDS: SODIUM CHLORIDE 0.9% 1,000 ML IV ONE (10:40)
[2024-03-25] MEDS: CALCIUM GLUCONATE 1,000 MG/60 ML BAG IV STA (10:40)
[2024-03-25 11:19] LABS: Hematocrit (blood only) 30.5 % (37.0-47.0); Hemoglobin 9.1 g/dl (12.0-16.0); Mean Corpuscular Hemoglobin 20.3 pg (25.0-34.0); Mean Corpuscular Hgb Conc 29.8 g/dL (32.0-36.0); Mean Corpuscular Volume 67.9 fL (80.0-100.0); Mean Platelet Volume 9.6 fL (9.4-12.4); Platelet Count 161 K/uL (130-400); RDW Coefficient of Variation 18.7 % (11.5-14.5); RDW Standard Deviation 41.1 fL (36.4-46.3); Red Blood Count 4.49 M/uL (4.20-5.40); White Blood Count 247.89 K/ul (4.8-10.8)
[2024-03-25 11:23] LABS: Albumin Globulin Ratio 2.1 (0.9-2); Albumin Level 4.6 gm/dl (3.4-5.0); BUN Creatinine Ratio 12.3 (10-20); Bilirubin,Total 0.9 mg/dl (0.2-1.0); Calcium 8.7 mg/dl (8.6-10.3); Creatinine Clr Calc Pharmacy 71.2 ml/min; Globulin 2.2 gm/dl (2.5-4.0); Potassium 6.2 mmol/L (3.5-5.1); Total Protein 6.8 gm/dl (6.0-8.3)
[2024-03-25 11:27] LABS: Prothrombin Time 10.6 Seconds (9.0-12.0)
[2024-03-25 12:29] LABS: Adenovirus PCR Not Detected (NotDetected); Bordetella parapertussis PCR Not Detected (NotDetected); Bordetella pertussis PCR Not Detected (NotDetected); Chlamydia pneumoniae PCR Not Detected (NotDetected); Coronavirus 229E PCR Not Detected (NotDetected); Coronavirus CoV-2 (COVID19)PCR Not Detected (NotDetected); Coronavirus HKU1 PCR Not Detected (NotDetected); Coronavirus NL63 PCR Not Detected (NotDetected); Coronavirus OC43PCR Not Detected (NotDetected); Human Metapneumovirus PCR Not Detected (NotDetected); Influenza A PCR Not Detected (NotDetected); Influenza B PCR Not Detected (NotDetected); Mycoplasma pneumoniae PCR Not Detected (NotDetected); Parainfluenza Virus 1 PCR Not Detected (NotDetected); Parainfluenza Virus 2 PCR Not Detected (NotDetected); Parainfluenza Virus 3 PCR Not Detected (NotDetected); Parainfluenza Virus 4 PCR Not Detected (NotDetected); Respiratory Syncytial VirusPCR Not Detected (NotDetected); Rhinovirus/Enterovirus PCR Not Detected (NotDetected)
[2024-03-25 12:35] LABS: Acanthocytes 1+; Basophils # (auto) 0.74 K/uL (0.00-0.20); Basophils % (auto) 0.3 %; Eosinophils # (auto) 0.11 K/uL (0.00-0.50); Hypochromasia Present; Immature Granulocytes # (auto) 0.38 K/uL (0.01-0.20); Immature Granulocytes % (auto) 0.2 %; Lymphocytes # (auto) 218.74 K/uL (1.20-3.40); Lymphocytes % (auto) 88.2 %; Monocytes # (auto) 24.31 K/uL (0.11-0.59); Monocytes % (auto) 9.8 %; Neutrophils # (auto) 3.61 K/uL (1.40-6.50); Neutrophils % (auto) 1.5 %; Ovalocytes 1+; Polychromasia 1+; Tear Drop Cells 1+
[2024-03-25] MEDS: OPTIRAY 320 100ml IV ONE (12:42)
[2024-03-25 12:43] LABS: Appearance Urine Clear (Clear); Bilirubin Urine Negative (Negative); Blood Urine Negative (Negative); Color Urine Yellow; Glucose Urine UA Negative (Negative); Ketones Urine Negative (Negative); Leukocyte Esterase Urine Negative (Negative); Nitrite Urine Negative (Negative); Protein Urine Negative (Negative); Specific Gravity Urine 1.006 (1.000-1.030); Urobilinogen Urine Negative (Negative); pH Urine 6.5 (4.5-7.5)
[2024-03-25 13:05] LABS: Troponin I High Sensitivity 4.2 pg/ml (0-14)
--- NOTE | 2024-03-25 13:12 | CT Scan Report ---
CT OF THE CHEST WITH IV CONTRAST CLINICAL HISTORY: Upper abdominal pain, hx CLL. COMPARISON STUDY: Chest CT January 07, 2024. TECHNIQUE: Following IV administration of 94 mL of Optiray, helical axial images of the chest were o btained. Sagittal and coronal reconstructions were viewed as well as maximal intensity projections o n an independent 3-D workstation. Automated exposure control was utilized for the study. A dose low ering technique was utilized adhering to the principles of ALARA. CT DOSE: 1888.01 mGy.cm FINDINGS: Enlarged supraclavicular, axillary and bilateral hilar lymph nodes are similar to CT of [place] 2023. Index left axillary node on image 90 of 245 measures 3.1 x 1.8 cm, previously 3.1 x 1. 8 cm. A right supraclavicular lymph node on image 18 measures 2 x 1.5 cm, previously 2.2 x 1.5 cm. Th ere is no pneumothorax or pleural effusion. There is no pericardial effusion. No suspicious pulmonary nodules are present. There is no consolidation to suggest pneumonia. Abdomen and pelvis CT will be r eported separately. IMPRESSION: 1. No acute intrathoracic findings. 2. No significant change in lower cervical and thoracic lymphadenopathy since CT of January 07, 2024. This is consistent with the provided history of CLL. ACT 112: Negative or not required by law. Electronically signed by: Sylvain Lacey M.D. 03/25/2024 1:09 PM
--- NOTE | 2024-03-25 13:21 | CT Scan Report ---
CT OF THE ABDOMEN AND PELVIS WITH CONTRAST CLINICAL HISTORY: Left sided abdominal pain, hx CLL COMPARISON STUDY: CT of the abdomen and pelvis December 08, 2023. TECHNIQUE: Following IV administration of 94 mL of Optiray, axial images of the abdomen and pelvis we re obtained from the lung bases to the proximal femurs. Images were reviewed in the axial, sagittal, and coronal planes. IV contrast was administered without complication. Automated exposure control wa s utilized for the study. A dose lowering technique was utilized adhering to the principles of ALARA . FINDINGS: No pneumatosis, free air or portal venous gas is present. Splenomegaly is unchanged. Abdomi nal and pelvic lymphadenopathy is similar to CT of January 07, 2024. Conglomerate aziza hepatis lymph nodes measure 8.8 x 4.4 cm. There are no hepatic lesions. Mild biliary ductal dilatation is unchanged and likely related to cholecystectomy. Kidneys, adrenal glands and pancreas are unremarkable. There is no evidence for a bowel obstruction. There is a moderate amount of stool within the colon. No debora l wall thickening is identified. There are no fluid collections. There are no urinary calculi. Index left external iliac lymph node measuring 4.4 x 2.6 cm, unchanged. No new sites of lymphadenopathy are identified. Major vasculature is patent. IMPRESSION: 1. No acute process within the abdomen or pelvis. 2. Stable abdominal and pelvic lymphadenopathy consistent with the provided history of CLL. No change in splenomegaly. 3. Moderate amount of stool within the colon. No evidence for a bowel obstruction. ACT 112: Negative or not required by law. Electronically signed by: Sylvain Lacey M.D. 03/25/2024 1:20 PM
--- NOTE | 2024-03-25 14:22 | History & Physical Report ---
Date of Service March 25, 2024 Assessment & Plan (1) Hyperkalemia: Plan: Patient sent in by PCP on 03/25 for elevated WBC count and K on outpatient labs Clinically patient endorses sinus congestion and URI symptoms K 6.8-->6.2-->8.0 on arrival ED spoke with oncology: This may be pseudo-hyperkalemia secondary to lysis within CMP/BMP tubes POC K was within normal limits at 4.4 Trend POC BMP; do not obtain further potassium measures through CMP/BMP Calcium gluconate 1000 mg IV x 1 Continue IVF resuscitation Continuous telemetry monitoring (2) CLL (chronic lymphocytic leukemia): Plan: Leukocytosis at 247.89 with a lymphocytic predominance Follows with the [facility] Blast crisis/hyperviscosity on differential Chest/abdomen/pelvic CT are unremarkable on arrival Uric acid and phosphorus WNL (lower suspicion for tumor lysis syndrome) Continue Brukinsa Oncology consult appreciated (3) Sinus infection: Plan: BioFire negative Given patient is immunocompromised due to chemotherapy, will continue empiric cefepime 2000 mg IV q8h Follow current blood cx (4) Hyponatremia: Plan: Mild; Na 131 on POC testing at time of admission NSS 1000 mL IV x 1 in the ED SIADH labs if downtrending Continue to trend POC BMP as needed (5) Cancer related pain: Plan: Verified in PDMP; continue scheduled morphine, oxycodone, and nabumetone (6) Labile hypertension: (7) Splenomegaly: Plan Disposition: Admit to PCU telemetry Full code Regular diet VTE PPx: Lovenox 40 mg SQ q24h History of Present Illness Chief Complaint: Sinus infection, abnormal outpatient labs Primary Care Provider: NO PCP Diana is a 68-year-old female with PMH of CLL, Sjogren's syndrome, ankylosing spondylitis, thyroid cancer, PSVT, segmental and somatic dysfunction, herpes zoster, and ployneuropathy. [facility] elevated potassium and WBC count. Patient reports that she has had a sinus infection and sore throat that started earlier in the week but got bad on Friday 03/23. She reports that she feels congested, that her ears are full, and that it hurts to breathe at times. Patient was recently started on new chemo medication (Brukinsa) 2 weeks ago, and was told that one of the side effects of this medication is URIs, and is concerned that this might of caused her symptoms. Additionally, she has been feeling off balance and having significant pain in her chest, generalized abdomen, and right hip. She takes morphine 30 mg in the morning and at night, as well as oxycodone 20 mg TID for the pain. She also rotates weekly between Toradol and nabumetone for additional pain control. Patient took her regular morning medicine today. She takes Brukinsa every morning (2 capsules). Other than Brukinsa no recent change in medications. She also recently completed a 30-day Holter monitor, as her most recent chemotherapy lead to arrhythmias and there was concern for her heart. Patient attributes her stomach pain to splenomegaly and hepatomegaly and reports that it feels like a "spasm" pain for which she has been taking Flexeril 3 times daily. She also reports having nerve studies on her right hip with Dr. Drsicoll several months ago, and having significant radiculopathy to the point where she can only stand for a few minutes at a time. Patient denies smoking, tobacco use, recent alcohol use. Patient's vitals are stable at time of admission. ED course: Cefepime 2000 mg IV Calcium gluconate 1000 mg IV NSS 1000 L IV ROS: Patient endorses generalized fatigue, chills, flushing, sinus infection, sore throat, congestion, runny nose, dizziness, feeling off balance, chest pain, SOB at rest and with exertion, intermittent chest palpitations, pleuritic CP, generalized abdominal pain, back pain, increased urinary frequency, burning with urination, nausea, vomiting bile, and diarrhea. Patient denies fever, blood in the urine/stool, melena, saddle anesthesia, or loss of urinary continence. Allergies Allergy/AdvReac Type Severity Reaction Status Date / Time adhesive Allergy Intermediate Skin Verified 03/25/24 16:27 irritation, welts bacitracin Allergy Intermediate Rash, Verified 03/25/24 16:27 swelling, welts bee venom protein (honey bee) Allergy Intermediate Diffuse Verified 03/25/24 16:27 hives, dyspnea bromfenac Allergy Intermediate Eyelid Verified 03/25/24 16:27 swelling, Eye drops xibrom dicyclomine Allergy Intermediate Diffuse Verified 03/25/24 16:27 rash doxycycline Allergy Intermediate Hives Verified 03/25/24 16:27 lamotrigine Allergy Intermediate Welts Verified 03/25/24 16:27 lavender (Lavandula Allergy Intermediate affects Verified 03/25/24 16:27 angustifolia) breathing loteprednol Allergy Intermediate Intense Verified 03/25/24 16:27 eye burning mupirocin Allergy Intermediate Rash Verified 03/25/24 16:27 neomycin Allergy Intermediate Rash, Verified 03/25/24 16:28 swelling, welts polymyxin B Allergy Intermediate Rash, Verified 03/25/24 16:28 swelling, welts pregabalin Allergy Intermediate Hands/feet Verified 03/25/24 16:28 swelling, mouth sores sulfamethoxazole Allergy Intermediate Rash Verified 03/25/24 16:28 tetracycline Allergy Intermediate HIVES Verified 03/25/24 16:29 topiramate Allergy Intermediate Rash Verified 03/25/24 16:28 trimethoprim Allergy Intermediate Rash Verified 03/25/24 16:28 wool Allergy Intermediate Hives Verified 03/25/24 16:28 aspirin AdvReac Intermediate Diffuse Verified 03/25/24 16:28 bruising Bleach (Sodium Hypochlorite) AdvReac Intermediate Breathing Verified 03/25/24 16:28 affected ibuprofen AdvReac Intermediate Diffuse Verified 03/25/24 16:28 bruising trimethobenzamide AdvReac Intermediate Muscle Verified 03/25/24 16:28 contraction PABA Allergy Intermediate Rash Uncoded 03/25/24 16:28 patcholi oil Allergy Intermediate Difficulty Uncoded 03/25/24 16:28 Breathing surgical latesha Allergy Intermediate Redness, Uncoded 03/25/24 16:28 infection from latesha Home Medications Medication Instructions Recorded Confirmed Type pantoprazole 40 mg tablet,delayed 40 mg PO QAM #180 tabs 12/26/18 03/25/24 History release ofloxacin 0.3 % eye drops (Ocuflox) 1 drops OPB TID 03/24/19 03/25/24 History Magic Swizzle 1 dose PO DIRECTED PRN MOUTH 04/15/21 03/25/24 History SORE FROM CHEMO cetirizine 10 mg tablet (Zyrtec) 10 mg PO QAM 04/15/21 03/25/24 History diphenhydramine HCl 25 mg capsule 25 mg PO DAILY PRN Allergy Symptoms 04/15/21 03/25/24 History (Benadryl) guaifenesin 600 mg tablet, 600 mg PO Q12H PRN Congestion 04/15/21 03/25/24 History extended release 12 hr (Mucinex) oxymetazoline 0.05 % nasal spray 2 spray intranasal UD PRN 04/15/21 03/25/24 History (Afrin (oxymetazoline)) Congestion pseudoephedrine HCl 30 mg tablet 30 mg PO DIRECTED PRN Congestion 04/15/21 03/25/24 History (Sudafed) famotidine 20 mg tablet (Pepcid AC) 20 mg PO BID PRN Heartburn 07/06/21 03/25/24 History ketorolac 0.5 % eye drops (Acular) 1 drp OPB TID 07/06/21 03/25/24 History olopatadine 0.1 % eye drops 1 drp OPB BID 07/06/21 03/25/24 History levothyroxine 175 mcg tablet 175 mcg PO DAILYBB 08/27/22 03/25/24 History (Synthroid) timolol maleate 0.5 % once daily 1 drp ophthalmic (eye) BID 11/20/22 03/25/24 History eye drops (Istalol) fremanezumab-vfrm 225 mg/1.5 mL 225 mg (1.5 mL) subcut MONTHLY 07/28/23 03/25/24 Rx subcutaneous syringe (Darshanovang #1.5 mL Syringe) meclizine 25 mg tablet 25 mg PO QID 30 days #120 tabs 07/28/23 03/25/24 Rx nabumetone 750 mg tablet 750 mg PO BID #60 tabs 07/28/23 03/25/24 Rx ondansetron HCl 8 mg tablet 8 mg PO TID PRN NAUSEA/VOMITING 07/28/23 03/25/24 Rx #90 tabs promethazine 25 mg tablet 25 mg PO Q4H PRN nausea and 07/28/23 03/25/24 Rx vomiting 1 month #60 tabs carboxymethyl 0.5 %-glycerin 1 1 drp ophthalmic (eye) DIRECTED 08/20/23 03/25/24 History %-polysorb 80 0.5 %-PF eye PRN Dry Eyes dropperette (Refresh Optive Advanced (PF)) cyclobenzaprine 10 mg tablet 10 mg PO TID muscle spasms 90 days 09/03/23 03/25/24 Rx #270 tabs acyclovir 400 mg tablet 400 mg PO TID 09/17/23 03/25/24 History pilocarpine HCl 5 mg tablet 5 mg PO QID 09/17/23 03/25/24 History (Salagen (pilocarpine)) coliiilepw-rlpxjrjpqyzqm-lonznhrd 1 tab PO TID PRN TENSION HEADACHES 01/07/24 03/25/24 Rx 50 mg-325 mg-40 mg tablet #90 tabs loperamide 2 mg capsule 2 mg PO Q6H PRN Diarrhea 01/15/24 03/25/24 History zolpidem 10 mg tablet (Ambien) 10 mg PO HS PRN Sleep 01/15/24 03/25/24 History furosemide 40 mg tablet 60 mg (1.5 x 40 mg) PO QAM PRN 02/24/24 03/25/24 Rx swelling #20 tabs metoprolol succinate 100 mg See Rx Instructions PO .COMPLEX 02/24/24 03/25/24 Rx tablet,extended release 24 hr #225 tabs metoprolol tartrate 50 mg tablet 50 mg PO TID PRN tachycardia #90 02/24/24 03/25/24 Rx tabs nitroglycerin 400 mcg/spray See Rx Instructions .Route 02/24/24 03/25/24 Rx translingual .COMPLEX #4.9 grams potassium chloride 10 mEq 20 meq (2 x 10 mEq) PO BID #360 02/24/24 03/25/24 Rx capsule,extended release caps sumatriptan succinate 100 mg 100 mg PO DAILY PRN migraine 02/24/24 03/25/24 Rx tablet (Imitrex) headache #9 tabs oxycodone 20 mg tablet 20 mg PO Q4H Breakthrough Pain #90 03/08/24 03/25/24 Rx tabs ketorolac 10 mg tablet 10 mg PO TID 7 days #21 tabs 03/09/24 03/25/24 Rx zanubrutinib 80 mg capsule 160 mg PO QAM 03/11/24 03/25/24 History (Brukinsa) morphine 30 mg tablet,extended 30 mg PO BID Pain 03/25/24 03/25/24 History release triamcinolone acetonide 55 mcg 1 spray intranasal AMPM PRN 03/25/24 03/25/24 History nasal spray aerosol (Nasacort) Allergy Symptoms Past Med/Surg History Problem List (Updated 03/25/24 @ 16:43 by Mauricio Sue DO) Splenomegaly Hyponatremia current surgery has been cancelled x 3 due to this, pt. will have checked on 01/14/24 and will be seeing Dr. Nuñez at 12:15 Sinus infection Hyperkalemia SVT (supraventricular tachycardia) Scalp mass Left ankle pain Fibromyalgia Polyneuropathy Chronic headaches Concussion Knee effusion, left Gastroenteritis Neutropenia Lumbar spine pain Leg edema, left Herpes zoster Muscle spasm Mucous cyst of digit of left hand Trochanteric bursitis, right hip AC (acromioclavicular) joint arthritis Encounter for pre-operative examination Small lymphocytic lymphoma Dacryocystitis, chronic Neck stiffness Left eye pain Bilateral hip pain Numbness of right anterior thigh Mass of right thigh Rib pain on right side Carpal tunnel syndrome on both sides Brain tumor Posterior tibial tendon dysfunction (PTTD) of left lower extremity De Quervain's tenosynovitis, left Pes anserinus bursitis of left knee Cancer related pain Trigger finger of both hands Ganglion cyst of both hands Left knee DJD Vertigo (Acute) Venous insufficiency (chronic) (peripheral) History of PSVT (paroxysmal supraventricular tachycardia) (Acute) follows with Dr. Eaton--on metoprolol Somatic dysfunction of lower extremities (Acute) Segmental and somatic dysfunction of upper extremity (Acute) Segmental and somatic dysfunction of thoracic region (Acute) Segmental and somatic dysfunction of rib cage (Acute) Segmental and somatic dysfunction of lumbar region (Acute) Segmental and somatic dysfunction of abdomen and other regions (Acute) Sacral region somatic dysfunction (Acute) Pelvic somatic dysfunction (Acute) Palpitations (Acute) Migraine headache (Acute) Lymphocytic lymphoma, diffuse (Acute) Lumbar radiculopathy (Acute) Labile hypertension (Acute) Hypothyroidism (Acute) Edema (Acute) Dyslipidemia (Acute) Chronic musculoskeletal pain (Acute) Cervical somatic dysfunction (Acute) Cervical radiculopathy (Acute) Benign neoplasm of brain, unspecified (Acute) Degenerative joint disease of left knee (Chronic) Lumbar spinal stenosis (Chronic) Myofascial pain syndrome (Chronic) CLL (chronic lymphocytic leukemia) (Chronic) Sjoegren syndrome (Chronic) Ankylosing spondylitis (Chronic) History of thyroid cancer (Chronic) sx Medical History Hx of migraines Polyneuropathy Sjogren syndrome Venous insufficiency (chronic) (peripheral) Hx of thyroid cancer Fibromyalgia Edema Hx of concussion (10/2023) Chronic headaches Hyponatremia CLL (chronic lymphocytic leukemia) Ankylosing spondylitis Dyslipidemia Prediabetes Hypothyroidism Angina at rest History of atrial fibrillation Hx of atrial tachycardia Hx of supraventricular tachycardia Vertigo Brain tumor Carpal tunnel syndrome on both sides Small lymphocytic lymphoma Hx MRSA infection Maintenance chemotherapy Crutches as ambulation aid Chronic back pain Acid reflux Ulcerative colitis History of pulmonary embolus (PE) History of DVT (deep vein thrombosis) Temporomandibular joint disorder Glaucoma Thalassemia syndrome Surgical History H/O excision of mass (01/15/24) History of biopsy History of bilateral breast biopsy History of rectal sphincterotomy Status post laparotomy History of gynecologic surgery History of excision of pilonidal cyst History of knee surgery History of ERCP History of eye surgery History of wisdom tooth extraction History of root canal procedure History of tooth extraction History of esophagogastroduodenoscopy (EGD) Status post correction of deviated nasal septum (~1989) Status post nasal surgery (~1974) Status post glaucoma surgery H/O colonoscopy (2010) S/P tubal ligation History of throat surgery (2009) S/P AVERY-BSO (~1995) S/P cataract extraction Hx of cholecystectomy (~2010) History of thyroidectomy (~2002) History of tonsillectomy and adenoidectomy History of dilatation and curettage Family History Father Diabetes Hypertension Other No family history of adverse response to anesthesia Social History Smoking Status: Never smoker Second Hand Exposure: No; Do You Dip or Chew Tobacco: No; Hx Alcohol Use: No Hx Substance Use: No Preferred Language: [place] Communication Ability: Effective Visual Impairment: No Limitations Hearing Ability: Normal Campus Administrator Required: No Beliefs That Will Affect Care: None marital status: Current Living Situation: Spouse current occupational status: disabled Feels Safe at Home: Yes Assistive Devices: Crutches Review of Systems Review of Systems: See HPI above Physical Exam Physical Exam: General: no acute distress; pleasant affect; non-toxic appearing; cachectic; cooperative HEENT: normocephalic, atraumatic; no scleral icterus; PERRLA w/ EOMs intact; vision and hearing grossly intact Neck: supple; no lymphadenopathy; trachea midline Skin: Scabbing noted on the right shoulder; warm, dry without signs of tenting; no cyanosis; no rashes or erythema noted CV: chest wall NTP; RRR; S1/S2 normal; no murmurs/rubs/gallops; pulses intact and symmetric at radial, DP, and PT Lungs: no acute respiratory distress; symmetrical chest wall expansion; clear breath sounds across all lung montoya w/o adventitious sounds; no wheezing ABD: Soft; organomegaly appreciated in the RUQ and LUQ; TTP in all 4 quadrants; BS present; no rebound/guarding; no distention MSK: no tics or fasciculations; no edema noted in the LEs b/l, nonerythematous Neuro: A&Ox3; normal mood and affect; fluent speech; no focal deficits; sensation intact and symmetric in lower extremes bilaterally Results & Data Results & Data Vital Signs (Past 12 Hours) Vital Signs Temp Pulse Pulse Resp BP BP Pulse Ox 03/25/24 13:49 72 20 121/72 97 03/25/24 12:00 72 17 125/68 99 03/25/24 11:24 67 12 123/61 97 03/25/24 11:23 66 20 123/61 99 03/25/24 11:00 67 20 130/67 03/25/24 10:36 63 16 94 03/25/24 10:30 69 18 150/70 H 03/25/24 10:29 71 03/25/24 10:00 76 17 157/77 H 98 03/25/24 09:49 36.4 C L 74 20 120/61 100 O2 Del Method 03/25/24 13:49 Room Air 03/25/24 12:00 03/25/24 11:24 03/25/24 11:23 Room Air 03/25/24 11:00 03/25/24 10:36 Room Air 03/25/24 10:30 03/25/24 10:29 03/25/24 10:00 03/25/24 09:49 Room Air Laboratory Results Abnormal lab results 03/25/24 Range/Units 10:40 WBC 247.89 H* (4.8-10.8) K/ul Hgb 9.1 L (12.0-16.0) g/dl Hct 30.5 L (37.0-47.0) % MCV 67.9 L (80.0-100.0) fL MCH 20.3 L (25.0-34.0) pg MCHC 29.8 L (32.0-36.0) g/dL RDW Coeff of Jillian 18.7 H (11.5-14.5) % Lymph # (Auto) 218.74 H (1.20-3.40) K/uL [place] # (Auto) 24.31 H (0.11-0.59) K/uL Baso # (Auto) 0.74 H (0.00-0.20) K/uL Immature Gran # (Auto) 0.38 H (0.01-0.20) K/uL Sodium 126 L (136-145) mmol/L Potassium 6.2 H* (3.5-5.1) mmol/L Chloride 93 L (98-107) mmol/L Alkaline Phosphatase 160 H (34-104) U/L Globulin 2.2 L (2.5-4.0) gm/dl Albumin/Globulin Ratio 2.1 H (0.9-2) Lipase 6 L (11-82) U/L Diagnostic Findings Abdomen/Pelvis CT 03/25/24 11:13 CT OF THE ABDOMEN AND PELVIS WITH CONTRAST CLINICAL HISTORY: Left sided abdominal pain, hx CLL COMPARISON STUDY: CT of the abdomen and pelvis December 08, 2023. TECHNIQUE: Following IV administration of 94 mL of Optiray, axial images of the abdomen and pelvis were obtained from the lung bases to the proximal femurs. Images were reviewed in the axial, sagittal, and coronal planes. IV contrast was administered without complication. Automated exposure control was utilized for the study. A dose lowering technique was utilized adhering to the principles of ALARA. FINDINGS: No pneumatosis, free air or portal venous gas is present. Splenomegaly is unchanged. Abdominal and pelvic lymphadenopathy is similar to CT of January 07, 2024. Conglomerate aziza hepatis lymph nodes measure 8.8 x 4.4 cm. There are no hepatic lesions. Mild biliary ductal dilatation is unchanged and likely related to cholecystectomy. Kidneys, adrenal glands and pancreas are unremarkable. There is no evidence for a bowel obstruction. There is a moderate amount of stool within the colon. No bowel wall thickening is identified. There are no fluid collections. There are no urinary calculi. Index left external iliac lymph node measuring 4.4 x 2.6 cm, unchanged. No new sites of lymphadenopathy are identified. Major vasculature is patent. IMPRESSION: 1. No acute process within the abdomen or pelvis. 2. Stable abdominal and pelvic lymphadenopathy consistent with the provided history of CLL. No change in splenomegaly. 3. Moderate amount of stool within the colon. No evidence for a bowel obstruction. ACT 112: Negative or not required by law. Electronically signed by: Sylvain Lacey M.D. 03/25/2024 1:[address] 03/25/24 11:59 CT OF THE CHEST WITH IV CONTRAST CLINICAL HISTORY: Upper abdominal pain, hx CLL. COMPARISON STUDY: Chest CT January 07, 2024. TECHNIQUE: Following IV administration of 94 mL of Optiray, helical axial images of the chest were obtained. Sagittal and coronal reconstructions were viewed as well as maximal intensity projections on an independent 3-D workstation. Automated exposure control was utilized for the study. A dose lowering technique was utilized adhering to the principles of ALARA. CT DOSE: 1888.01 mGy.cm FINDINGS: Enlarged supraclavicular, axillary and bilateral hilar lymph nodes are similar to CT of January 07, 2024. Index left axillary node on image 90 of 245 measures 3.1 x 1.8 cm, previously 3.1 x 1.8 cm. A right supraclavicular lymph node on image 18 measures 2 x 1.5 cm, previously 2.2 x 1.5 cm. There is no pneumothorax or pleural effusion. There is no pericardial effusion. No suspicious pulmonary nodules are present. There is no consolidation to suggest pneumonia. Abdomen and pelvis CT will be reported separately. IMPRESSION: 1. No acute intrathoracic findings. 2. No significant change in lower cervical and thoracic lymphadenopathy since CT of January 07, 2024. This is consistent with the provided history of CLL. ACT 112: Negative or not required by law. Electronically signed by: Sylvain Lacey M.D. 03/25/2024 1:09 PM ECG Additional Comments: ECG revealed NSR at 71 bpm; QTc 419 Repeat ECG ordered to assess for T waves in the setting of uptrending hyperkalemia Code Status & VTE Plan Code Status Full code (discussed with both patient and patient's at bedside) VTE Prophylaxis Plan VTE Prophylaxis will be ordered: Yes Supervising Physician Co-Signing Physician Notes Patient seen and examined, chart reviewed, case discussed with Beau Patton PA-C and I agree with the assessment and plan as above except as otherwise noted Labs and images reviewed Patient does have generalized weakness, fatigue, and upper respiratory symptoms and sinus congestion. CTchest is without acute findings, no significant change in known lymphadenopathy consistent with CLL. She has some intermittent abdominal discomfort no acute infectious processes seen in the abdomen or pelvis, stable lymphadenopathy is noted. She has a moderate stool burden without evidence of obstruction. His upper respiratory symptoms including sore throat, sinus congestion and dry cough. Her BioFire is negative and she does not show any signs of pneumonia on her CT scan. Will treat symptomatically at this time and defer additional antibiotics as her procalcitonin is normal. Leukocytosis unreliable and is always markedly elevated in the setting of CLL. Additional weakness with mild hyponatremia, trended and patient did receive fluids in the ER. If worsening obtain SIADH labs. She is nontoxic-appearing at the bedside. While her spine measurements of potassium and 6.8, 6.2 and 8.0 her [id number] on whole blood was 4.4. Due to her markedly elevated cell count and cell fragility potassium cannot be collected on any spun sample (this will lead to an inaccurate greatly elevated potassium result). Potassium must be checked on [id number] /blood gas analyzer w/ whole blood sample, or could be obtained by a heparinized plasma (not serum) level. Given risk of untreated hyperkalemia while initial true potassium level was pending confirmation serial EKGs were ordered, these do not show any increased area under the curve or significantly peaked T waves consistent with true hyperkalemia. On followup true value 4.4. Uric acid and phosphorus are normal. No evidence of tumor lysis syndrome. PG Care Time/CCT Total # of Minutes Spent Total Time Spent with Patient: Total time spent is greater than 50% in coordination of care (as documented) at patient's floor/unit and/or counseling patient: Coding [place] [address] INT INP/OBS CARE 3/75MIN Patient Type Established Medical Decision Making High Complexity Diagnoses Hyperkalemia E87.5 CLL (chronic lymphocytic leukemia) C91.90 Sinus infection J32.9 Hyponatremia E87.1 Cancer related pain G89.3 Labile hypertension R09.89 Splenomegaly R16.1
[2024-03-25 14:39] LABS: iSTAT Creatinine 0.6 mg/dl (0.6-1.3); iSTAT Hemoglobin 8.8 g/dl (12.0-16.0); iSTAT Ionized Calcium 1.08 mmol/l (1.12-1.32); iSTAT Potassium 4.4 mmol/L (3.3-5.0)
[2024-03-25] MEDS: CEFEPIME 2000MG 2,000 MG/20 ML SYR IV STA (14:41)
[2024-03-25 15:16] LABS: BUN Creatinine Ratio 12.3 (10-20); Creatinine Clr Calc Pharmacy 81.2 ml/min; Uric Acid 3.5 mg/dl (2.6-7.2)
[2024-03-25 16:20] LABS: iSTAT Creatinine 0.7 mg/dl (0.6-1.3); iSTAT Hemoglobin 9.9 g/dl (12.0-16.0); iSTAT Ionized Calcium 1.14 mmol/l (1.12-1.32); iSTAT Potassium 4.3 mmol/L (3.3-5.0)
[2024-03-25] MEDS: oxyCODONE HCL IR 5 MG TAB (IMMEDIATE RELEASE) PO STA (17:34)
[2024-03-25] MEDS: BUTALBITAL/ACETAMIN/CAFFEINE TAB PO STA (17:34)
[2024-03-25] MEDS ORDERED: SUMAtriptan succinate 100 MG TAB PO PRN (18:18)
[2024-03-25] MEDS ORDERED: diphenhydrAMINE Capsule 25 MG CAP PO PRN (18:18)
[2024-03-25] MEDS ORDERED: PROMETHAZINE HCL 25 MG TAB PO PRN (18:18)
[2024-03-25] MEDS ORDERED: LOPERAMIDE HCL 2 MG CAP PO PRN (18:18)
[2024-03-25] MEDS ORDERED: ZOLPIDEM TARTRATE 5 MG TAB PO PRN (18:34)
--- OUTSIDE RECORDS SUMMARY | 2024-03-25 19:51 | External Medical Summary | Summary of Care ---
Author Name Unknown Organization [facility] Address [address] [place] [address] Phone [phone] Care Team Providers Care Chief Pharmacist Name Role Phone Unavailable Primary Care Provider Unavailabl e Reason for Visit * Reason Comments Follow Up Encounter Details Date Type Department Care Team (Late st Contact Info) Description 03/01/2024 11:40 AM EST Office Visit Ophthalmology, [facility] [address] [place] [address] Chris Benson T, DO [address] [place], [place] [id number] Acquired stenosis of both nasolacrimal ducts* Allergies [...] hypoallergenic earrings Certain perfumes & lotions, certain electronic tech and sprays Ibuprofen 06/16/2008 bruising Lamotrigine Rash [...] as of this encounter (statuses as of 03/01/2024) Medications FLEXERIL 10 MG PO TABS 1 tablet 3 times daily Active RELAFEN 750 MG PO TABS 2 times daily for 3 weeks per month Active ZYRTEC 10 MG PO TABS 1 tablet daily Activ e DIPHENHYDRAMINE HCL 50 MG PO CAPS one by mouth as needed Active NASACORT AQ 55 MCG/ACT NA AERS Administer into nostril at bedtime. Active ACYCLOVIR 400 MG PO TABS Take by mouth. 2 Active POTASSIUM CHLORIDE CR 10 MEQ PO CPCR Take by mouth 2 times a day. 2 Active LASIX 40 MG PO TABS 1 and 1/2 tablets by mouth daily in the morning Active KETOROLAC TROMETHAMINE 10 MG PO TABS Toradol 10mg tablet three times a day for 1 week per month (3 weeks on Relafen then back to Toradol for 1 week) Active ZOFRAN 8 MG PO TABS one by mouth every 8 hours as needed for nausea form migraines, cancer treatments (Lcan take in place of or alternate with Phenergan) Active PROMETHAZINE HCL 25 MG PO TABS one by mouth every 4 hours as needed for nausea from migraines, cancer treatments, etc can alternate with Zofran or take in place of Active FIORICET 50-325-40 MG PO TABS 1 or 2 tablets by mouth every 4 hours as needed for tension headaches Active IMITREX 100 MG PO TABS one by mouth as needed for migraines Active AMBIEN 10 MG PO TABS take one by mouth 1/2 hour to 1 hour before bed every night Active OXYCODONE HCL 20 MG PO TABS every 4 hours as needed Active silver sulfadiazine (SILVADENE) 1 % cream As needed 5 Active metoprolol tartrate (LOPRESSOR) 50 MG Tablet Take 1 Tablet by mouth as needed. Up to 3 times a day as needed for tachycardia 6 Active meclizine (ANTIVERT) 25 MG Tablet Take 1 Tablet by mouth in the morning and 1 Tablet at noon and 1 Tablet in the evening and 1 Tablet before bedtime. 5 8 Active econazole nitrate (SPECTAZOLE) 1 % cream 8 Active FREMANEZUMAB-VFR M 225 MG/1.5ML SOSY Inject 1.5 mL under the skin Every Month. 9 Active prednisolone acetate (PRED FORTE) 1 % ophthalmic suspension Instill 1 Drop into both eyes 4 times a day. 10 mL 3 9 Active Additional Information Patient not taking.Reported on 02/02/2024 Morphine Sulfate ER 30 MG Oral Tablet Extended Release (Ms Contin) Take 1 Tablet by mouth in the morning and 1 Tablet before bedtime. 2 Active Metoprolol Succinate ER 100 MG Oral Tablet Extended Release 24 Hour (toPROL XL) TAKE 1 AND 1/2 TABLET BY MOUTH IN THE MORNING AND 1 TAB IN THE EVENING 2 Active Metoprolol Succinate ER 25 MG Oral Tablet Extended Release 24 Hour (toPROL XL) Take 1 Tablet by mouth as needed. 3 Active Refresh Optive PF 0.5-0.9 % Ophthalmic Solution (carboxymethylce ll-glycerin PF) Instill 1 Drop into both eyes every hour. Active Synthroid 175 MCG Oral Tablet TAKE ONE TABLET BY MOUTH DAILY DIRECTED. BRAND NECESSARY 3 Active Pantoprazole Sodium 40 MG Oral Tablet Delayed Release (Protonix) TAKE 1 TABLET BY MOUTH ONCE DAILY IN THE MORNING 180 Tablet 1 4 Active Nitroglycerin 0.4 MG/SPRAY Translingual Solution (Nitrolingual) Place 1 Spout Spring under the tongue as needed for Pain, Chest. Active Betamethasone Dipropionate 0.05 % External Ointment Start: 02/04/23 16:03:00 EDT, 1 appl, topical, bid, Disp# 45 g, Refills: 3, to hands BID, Pharmacy: [facility] 3 Active Clobetasol Propionate 0.05 % External Ointment (Temovate) Start: 02/04/23 13:55:00 EDT, 1 appl, topical, Daily, Disp# 45 g, Refills: 3, apply to hands qhs, Pharmacy: [facility] 3 Active Lomotil 2.5-0.025 MG Oral Tablet Take 2.5 mg by mouth. 4 Active predniSONE 10 MG Oral Tablet (Deltasone) 1 Tablet. 3 Active Pilocarpine HCl 5 MG Oral Tablet (Salagen) Take 1 Tablet by mouth in the morning and 1 Tablet at noon and 1 Tablet before bedtime. 270 Tablet 3 4 Active Timolol Maleate (Once-Daily) 0.5 % Ophthalmic Solution (Istalol)Indicat ions:Primary open angle glaucoma of both eyes, unspecified glaucoma stage Instill 1 Drop into both eyes in the morning. 5 mL 6 4 Active Additional Information Patient taking differently:1 Drop Both eyesBID (.AM/PM), Reported on 02/02/2024 Ketorolac Tromethamine 0.5 % Ophthalmic Solution (Acular) Instill 1 Drop into both eyes in the morning and 1 Drop at noon and 1 Drop in the evening and 1 Drop before bedtime. 10 mL 3 4 Active Olopatadine HCl 0.1 % Ophthalmic Solution (Patanol) Instill 1 Drop into both eyes in the morning and 1 Drop before bedtime. 5 mL 6 4 Active Ofloxacin 0.3 % Ophthalmic Solution (Ocuflox) Instill 1 Drop into both eyes in the morning and 1 Drop at noon and 1 Drop in the evening and 1 Drop before bedtime. 5 mL 11 4 Active Amoxicillin 500 MG Oral Capsule (Amoxil) Take 1 Capsule by mouth in the morning and 1 Capsule at noon and 1 Capsule before bedtime. 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 CLL (chronic lymphocytic leukemia) 12/06/2009 Dacryocystitis 03/05/2009 Sicca syndrome Other thalassemia Malignant neoplasm of thyroid gland Osteoarthrosis Ankylosing spondylitis 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 Blindness, one eye Overview (09/12/2020): left eye 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 Sjogren's disease documented as of this encounter (statuses as of 03/01/2024) Resolved Problems Problem Noted Date Diagnosed Date Resolved Date Nasal septal deformity 08/14/201804/24 documented as of this encounter (statuses as of 03/01/2024) Social History Tobacco Use Types Packs/Day Years Used Date Smoking Tobacco: Never Smokeless Tobacco: Never Alcohol Use Standard Drinks/Week Comments No 0 (1 standard drink = 0.6 oz pur e alcohol) Comments No Sex and Gender Information Value Date Recorded Sex Assigned at Not on file Legal Sex Female 7:12 AM EST Gender Identity Not on file Sexual Orientation Not on file documented as of this encounter Progress Notes * Chris Benson, - 03/01/2024 11:51 AM EST Diana Pan is a 68 year old female who returns today for irrigation. 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 stopped vynclasta. Right eye better. Allergies. Eyes dry. Heart arrhythmia on monitor for1 month. Interval change in labs and imaging. 11q deletion and Fish studies bad. Progressive lymphoma reported. Med with significant GI issues. . Worsening discharge from right eye. Started vancomycin for the cloudy punctal irrigation. Completed 14 day course with improvement. Stable right eye lefteye still matters. Ophthalmology Past History: amblyopia right eye, glasses AACG left eye s/p PI. Ophthalmology ROS: no recent significant change in vision, no diplopia and Positive for eye discharge both eyes, eye pain both eyes and redness both eyes Current Ophthalmic Medications:, istalol and both eyes patanol,acular [place] QID Current Outpatient Medications Medication Sig Dispense [...] times aday. (Patient not taking: Reported on 02/02/2024) 10 mL 3 Morphine Sulfate ER 30 [...] Take 1 Tablet by mouth as needed. Refresh Optive PF 0.5-0.9 % Ophthalmic Solution (carboxymethylcell-glycerin PF) Instill 1 Drop intoboth eyes every hour. Synthroid 175 MCG Oral Tablet TAKE ONE TABLET BY MOUTH DAILY DIRECTED. BRAND NECESSARY Pantoprazole Sodium 40 MG Oral Tablet Delayed Release (Protonix) TAKE 1 TABLET BY MOUTH ONCE DAILY IN THE MORNING 180 Tablet 1 Nitroglycerin 0.4 MG/SPRAY Translingual Solution (Nitrolingual) Place 1 Spout Spring under the tongue as needed for Pain, Chest. Betamethasone Dipropionate 0.05 % External Ointment Start: 02/04/23 16:03:00 EDT, 1 appl, topical, bid, Disp# 45 g, Refills: 3, to hands BID, Pharmacy: [facility] Clobetasol Propionate 0.05 % External Ointment (Temovate) Start: 02/04/23 13:55:00 EDT, 1 appl, topical, Daily, Disp# 45 g, Refills: 3, apply to hands q, Pharmacy: [facility] Lomotil 2.5-0.025 MG Oral Tablet Take 2.5 mg by mouth. predniSONE 10 MG Oral Tablet (Deltasone) 1 Tablet. Pilocarpine HCl 5 MG Oral Tablet (Salagen) Take 1 Tablet by mouth in the morning and 1 Tablet at noon and 1 Tablet before bedtime. 270 Tablet 3 Timolol Maleate (Once-Daily) 0.5 % Ophthalmic Solution (Istalol) Instill 1 Drop into both eyes in the morning. (Patient taking differently: Instill 1 Drop into both eyes in the morning and 1 Drop before bedtime.) 5 mL 6 Ketorolac Tromethamine 0.5 % Ophthalmic Solution (Acular) Instill 1 Drop into both eyes in the morning and 1 Drop at noon and 1 Drop in the evening and 1 Drop before bedtime. 10 mL 3 Olopatadine HCl 0.1 % Ophthalmic Solution (Patanol) Instill 1 Drop into both eyes in the morning and 1 Drop before bedtime. 5 mL 6 Ofloxacin 0.3 % Ophthalmic Solution (Ocuflox) Instill 1 Drop into both eyes in the morning and 1 Drop at noon and 1 Drop in the evening and 1 Drop before bedtime. 5 mL 11 Amoxicillin 500 MG Oral Capsule (Amoxil) Take 1 Capsule by mouth in the morning and 1 Capsule at noon and 1 Capsule before bedtime. 30 Capsule 0 No current facility-administered medications for this visit. Base Eye Exam Neuro/Psych Oriented x3: Yes Mood/Affect: Normal Slit Lamp and Fundus Exam Slit Lamp Exam Right Left Lids/Lashes laxity, 2+ Blepharitis laxity, foamy tears., 1+ Blepharitis Conjunctiva/Sclera White and quiet several loose lashes inferior White and quiet Cornea Clear no epi defect Clear no epi defect Anterior Chamber Deep and quiet Deep and quiet Iris Round and reactive Round and reactive Lens PCIOL PCIOL, retained cortex inferiorly PCO inferior temporal cannot see Yag cap Office Procedure Note: Name: Diana Pan MRD: [id number] DATE: 03/01/2024 PREOP DX: conjunctivitis both eyes POSTOP DX: [...] well without complication. IMPRESSION: White and quiet eyes with a cloudy tear film Conjunctivitis OU + MRSA sacs irrigated clear NLDO stable both eyes with improved irrigation after 4 to 5 vanco Dry eyes Left eye vitreal haze stable Blepharitis OU PLAN: 1. Irrigated to clear easy to flush 2. acular QID and lid hygiene ocuflox QID 3. reassurance no epi defects 4. 2 week return sooner PRN I spent a total of 10-19 minutes (exact time 10 mins) on the date of service in preparation, delivery, and documentation of the care provided to Diana Pan excluding any time spent in the performance of separately billed services or time spent by another provider/QHP. Chris Benson DO documented in this encounter Nursing Notes * Kait Vegas LPN - 03/01/2024 11:42 AM EST Diana Pan is a 68 year old female who presents for follow up. Last Visit: 02/16/2024 (in office), Visit date not found (telemedicine) She currently c/o much more discharge in left eye. Not as much as the right eye. Constantly cleaning out . Sore and irritated. Both eyes have a burning feeling. Are you diabetic? No VA, IOP, current eyeglass Rx, and pupil check and dilation if needed can be found in ophth exam. documented in this encounter Plan of Treatment Upcoming Encounters Date Type Department Care Team (Latest Contact Info) Description 03/10/2024 10:00 AM EST Office Visit Rheumatology [place] [id number] [place], [place] [address] Cyrus Ferreira MD [address] [place], [place] [address] 04/27/2024 1:30 PM EST Hospital Encounter [facility], Endoscopy Room [facility] [address] [place] [id number] Serena Soto, DO [address] [place] [address] 04/27/2024 1:30 PM EST - 04/27/2024 2:00 PM EST Surgery ENDO [facility], Endoscopy Room [facility] [address] [place] [phone] Serena Soto, DO [address] [place] [address] COLONOSCOPY FLEXIBLE PROXIMAL DIAGNOSTIC Scheduled Procedures Name Priority Associated Diagnoses Date/Ti me COLONOSCOPY FLEXIBLE PROXIMAL DIAGNOSTIC Recall Diarrhea History of colon polyps 04/27/2024 1:30 PM EST Health Maintenance Due Date Last Done Comments DXA Scan 1956 Lipid Panel 1956 COVID-19 Vaccine (#1) 1961 Pneumococcal Vaccine: 65+ Years (1 of 2 - PCV) 1962 Depression Screening 1968 Hepatitis C Screening 1974 Zoster Vaccines (1 of 2) 1975 Mammogram 1996 Cologuard 2001 Colonoscopy 2001 Colorectal Cancer Screening 2001 Fecal Occult Blood Test 2001 Sigmoidoscopy 2001 DTap/Tdap Vaccines (1 - Tdap) 11/17/2003 11/16/2003 TSH 09/11/2022 09/11/2021, 02/05, 11/03/1996 Influenza Vaccine (FLU shot) (#1) 2023 Diabetes Screening 12/25/2025 12/25/2022, 0 09/11/2021, 02/14/2021, Additional history exists HPV (Gardasil) Vaccine Aged Out No lo nger eligible based on patient's age to complete this topic Hepatitis B Vaccine Aged Out No longe r eligible based on patient's age to complete [...]
--- OUTSIDE RECORDS SUMMARY | 2024-03-25 19:51 | External Medical Summary | Summary of Care ---
Author Name Unknown Organization [facility] Address [address] [place] [address] Phone [phone] Care Team Providers Care Vector Control Specialist Name Role Phone Unavailable Primary Care Provider Unavailabl e Reason for Visit * Reason Comments Rheum Follow Up Follow up - / sjo danielle Encounter Details Date Type Department Care Team (Latest Contact Info) Description 03/10/2024 10:00 AM EST Office Visit Rheumatology [place] [address] [email or web address] [address] [facility] [employer] [place] [address] Sjogren's syndrome with keratoconjunctivitis sicca (HCC)*; Ankylosing spondylitis of multiple sites in spine (HCC) Allergies Active Allergy Reactions Criticality Noted Date Comments Adhesive Tape 06/16/2008 Aminobenzoic Acid High 10/29/2023 Other Reaction(s): Rash Aspirin 02/26/2012 "bruising all over body" Bacitracin 02/26/2012 "severe skin rash, welts, irritation, caused infections around open cuts or wounds" Bactrim Rash 07/28/2012 Bee Stings High 06/16/2008 Dicyclomine Hcl Rash 08/25/2017 Compazine Other (Please comment) 06/16/2008 Severe/extreme muscle contractions, eyes rolling back Dicyclomine High 10/29/2023 Other Reaction(s): Diffuse rash Dicyclomine Hcl 01/11/2013 Itch, burn -open areas Doxycycline Hives 06/27/2021 Reported by patient Environmental 06/16/2008 Certain metals/alloys such as surgical latesha, root canal posts, hypoallergenic earrings Certain perfumes & lotions, certain lens grinder and polisher and sprays Ibuprofen 06/16/2008 bruising Lamotrigine Rash 06/16/2008 Welts all over body Lamotrigine 02/26/2012 "rash and welts all over body" Lavender Oil 08/25/2017 Loteprednol Etabonate 02/26/2012 "pain from irritation and feeling of something in my eye" Mupirocin Rash 08/25/2017 Neomycin-Bacitracin Zn-Polymyx 01/15/2010 Nsaids 06/16/2008 bruising Patchouli Oil 08/25/2017 Polymyxin B High 02/04/2023 Other Reaction(s): RASH/SWELLING/WELTS Bacitracin-Polymyxin B 06/16/2008 Pregabalin High 10/29/2023 Other Reaction(s): Hands/feet swelling, mouth sores Soap & Cleansers 01/15/2010 "ivory soap" Sulfamethoxazole High 02/04/2023 Other Reaction(s): RASH Tetracycline Base Hives,Rash 06/16/2008 Topiramate High 10/29/2023 Other Reaction(s): Rash Trimethobenzamide Hcl High 10/29/2023 Other Reaction(s): Muscle contraction Trimethoprim High 11/20/2022 Other Reaction(s): RASH Bromfenac Sodium 02/26/2012 "eyelid swelling and swelling in skin around eyes, burning and overall eye pain" documented as of this encounter (statuses as of 03/10/2024) Medications FLEXERIL 10 MG PO TABS 1 [...] 400 MG PO TABS Take by mouth. 12/16/19 12 Active POTASSIUM CHLORIDE CR 10 MEQ PO CPCR Take by mouth 2 times a day. 02/14/20 12 Active LASIX 40 MG PO TABS 1 [...] sulfadiazine (SILVADENE) 1 % cream As needed 09/06/19 15 Active metoprolol tartrate (LOPRESSOR) 50 MG Tablet Take 1 Tablet by mouth as needed. Up to 3 times a day as needed for tachycardia 08/01/19 16 Active meclizine (ANTIVERT) 25 MG Tablet Take 1 Tablet by mouth in the morning and 1 Tablet at noon and 1 Tablet in the evening and 1 Tablet before bedtime. 5 08/07/19 18 Active econazole nitrate (SPECTAZOLE) 1 % cream 02/17/20 18 Active FREMANEZUMAB-VFRM 225 MG/1.5ML SOSY Inject 1.5 mL under the skin Every Month. 12/01/19 19 Active prednisolone acetate (PRED FORTE) 1 % ophthalmic suspension Instill 1 Drop into both eyes 4 times a day. 10 mL 3 01/20/20 19 Active Morphine Sulfate ER 30 MG Oral Tablet Extended Release (Ms Contin) Take 1 Tablet by mouth in the morning and 1 Tablet before bedtime. 05/22/19 22 Active Metoprolol Succinate ER 100 MG Oral Tablet Extended Release 24 Hour (toPROL XL) TAKE 1 AND 1/2 TABLET BY MOUTH IN THE MORNING AND 1 TAB IN THE EVENING 03/25/20 22 Active Metoprolol Succinate ER 25 MG Oral Tablet Extended Release 24 Hour (toPROL XL) Take 1 Tablet by mouth as needed. 05/22/19 23 Active Refresh Optive PF 0.5-0.9 % Ophthalmic Solution (carboxymethylcel l-glycerin PF) Instill 1 Drop into both eyes every hour. Active Synthroid 175 MCG Oral Tablet TAKE ONE TABLET BY MOUTH DAILY DIRECTED. BRAND NECESSARY 08/13/19 23 Active Pantoprazole Sodium 40 MG Oral Tablet Delayed Release (Protonix) TAKE 1 TABLET BY MOUTH ONCE DAILY IN THE MORNING 180 Tablet 1 06/16/19 24 Active Nitroglycerin 0.4 MG/SPRAY Translingual Solution (Nitrolingual) Place 1 [place] under the tongue as needed for Pain, Chest. Active Betamethasone Dipropionate 0.05 % External Ointment Start: 02/04/23 16:03:00 EDT, 1 appl, topical, bid, Disp# 45 g, Refills: 3, to hands BID, Pharmacy: [facility] 02/05/20 Active Clobetasol Propionate 0.05 % External Ointment (Temovate) Start: 02/04/23 13:55:00 EDT, 1 appl, topical, Daily, Disp# 45 g, Refills: 3, apply to hands qhs, Pharmacy: [facility] 02/05/20 23 Active Lomotil 2.5-0.025 MG Oral Tablet Take 2.5 mg by mouth. 05/29/19 24 Active predniSONE 10 MG Oral Tablet (Deltasone) 1 Tablet. 02/11/20 23 Active Timolol Maleate (Once-Daily) 0.5 % Ophthalmic Solution (Istalol)Indicati ons:Primary open angle glaucoma of both eyes, unspecified glaucoma stage Instill 1 Drop into both eyes in the morning. 5 mL 6 10/20/19 24 Active Additional Information Patient taking differently:1 Drop Both eyesBID (.AM/PM), Reported on 03/10/2024 Ketorolac Tromethamine 0.5 % Ophthalmic Solution (Acular) Instill 1 Drop into both eyes in the morning and 1 Drop at noon and 1 Drop in the evening and 1 Drop before bedtime. 10 mL 3 10/20/19 24 Active Olopatadine HCl 0.1 % Ophthalmic Solution (Patanol) Instill 1 Drop into both eyes in the morning and 1 Drop before bedtime. 5 mL 6 12/29/19 24 Active Ofloxacin 0.3 % Ophthalmic Solution (Ocuflox) Instill 1 Drop into both eyes in the morning and 1 Drop at noon and 1 Drop in the evening and 1 Drop before bedtime. 5 mL 11 01/19/20 24 Active Amoxicillin 500 MG Oral Capsule (Amoxil) Take 1 Capsule by mouth in the morning and 1 Capsule at noon and 1 Capsule before bedtime. 30 Capsule 4 12:29 PM EDT 01/26/20 24 Active Brukinsa 80 MG Oral Capsule 160 mg. 02/25/20 24 025 Active Hydrocortisone Sod Suc (PF) 100 MG Injection Solution Reconstituted (Solu-Cortef) Administer 100 mg intravenously. 12/03/19 24 Active Pilocarpine HCl 5 MG Oral Tablet (Salagen) Take 1 Tablet by mouth in the morning and 1 Tablet at noon and 1 Tablet in the evening and 1 Tablet before bedtime. 360 Tablet 3 03/10/20 24 Active Pilocarpine HCl 5 MG Oral Tablet (Salagen) Take 1 Tablet by mouth in the morning and 1 Tablet at noon and 1 Tablet before bedtime. 270 Tablet 3 09/04/19 24 024 Discontin ued(Refil l) documented as of this encounter (statuses as of 03/10/2024) Active Problems Problem Noted Date Diagnosed Date [...] as of this encounter (statuses as of 03/10/2024) Resolved Problems Problem Noted Date Diagnosed Date Resolved Date Nasal septal deformity 08/14/201804/24 documented as of this encounter (statuses as of 03/10/2024) Social History Tobacco Use Types Packs/Day Years [...] Sign Reading Time Taken Comments Blood Pressure 98/56 03/10/2024 10:10 AM EST Pulse - - Temperature 36.2 C (97.1 F) 03/10/2024 10:[address] Respiratory Rate - - Oxygen Saturation - - Inhaled Oxygen Concentration - - Weight 62.6 kg (138 lb) 03/10/2024 10:10 AM EST Height - - Body Mass Index 26.07 07/07/2023 8:58 AM EDT documented in this encounter Progress Notes * Cyrus Ferreira MD - 03/10/2024 10:16 AM EST Subjective: Patient seen today for further follow up evaluation of Sjogren's, ankylosing spondylitis. Since thelast visit she repotrs that the chemo she was on was not working and she was just switched to another agent. She sees Dr Nuñez here and an oncologist at [place]. She repots that she had surgery for the mass on the back on her skull and this did come back as her lymphoma. 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 She reports her dryness has gotten worse since being on chemotherapy. She reports of the pilocarpine does give her benefit. Also uses Biotene. She is also having more joint pains and will use prednisone as needed. She also takes narcotics. Musculoskeletal ROS: . Abnormal: joint pain, back pain, and neck pain . Pain scale (0-10): 7 Other ROS: . Constitutional: normal . Head normal . Eyes: dryness . Ears, nose, throat, mouth: dry mouth . Cardiovascular: normal . Respiratory: normal . Gastrointestinal: normal . Genitourinary: normal All other ROS reviewed and negative Social History: Social History [...] 0.4 MG/SPRAY Translingual Solution (Nitrolingual) Place 1 [place] under the tongue as needed for Pain, Chest. Betamethasone Dipropionate 0.05 % External Ointment Start: 02/04/23 16:03:00 EDT, 1 appl, topical, bid, Disp# 45 g, Refills: 3, to hands BID, [facility]acy: [facility] Clobetasol Propionate 0.05 % External Ointment (Temovate) Start: 02/04/23 13:55:00 EDT, 1 appl, topical, Daily, Disp# 45 g, Refills: 3, apply to hands qhs, [facility] Lomotil 2.5-0.025 MG Oral Tablet Take 2.5 [...] 1 Capsule before bedtime. 30 Capsule 0 Brukinsa 80 MG Oral Capsule 160 mg. Hydrocortisone Sod Suc (PF) 100 MG Injection Solution Reconstituted (Solu- Cortef) Administer 100 mgintravenously. No current facility-administered medications for this visit. Physical Exam: BP 98/56 (BP Site: Left Arm, BP Position: Sitting) | Temp 36.2 C (97.1 F) (Infrared ) | Wt 62.6kg (138 lb) | BMI 26.07 kg/m | BSA 1.64 m General: alert, no distress, and well nourished HENT: normocephalic, external ears normal, no mucosal erythema, no mucosal edema, no oral ulcers, mildly dry oral mucosa Eye Exam: PERRL, EOMI, conjunctiva are pink and non-injected, sclera clear Neck: supple, no adenopathy, thyroid normal size, non-tender, without nodularity Lymph: no palpable lymphadenopathy Heart: regular rate & rhythm and no gallops Lungs: clear to auscultation , no rales, wheezes or rhonchi Abdomen: abdomen soft, non-tender, and normal bowel sounds Musculoskeletal Exam: Cannot fully extend left knee No synovitis of the hands Assessment: (M35.01) Sjogren's syndrome with keratoconjunctivitis sicca (HCC) (primary encounter diagnosis) (M45.0) Ankylosing spondylitis of multiple sites in spine (HCC) She is noting more dryness with chemotherapy. Will increase pilocarpine to 4 times a day. Will alsocontact her oncologist about daily prednisone use for her arthritis especially if it worsens on hernew medication. Plan: 1. Will contact her oncologist about possible daily prednisone use if needed 2. Will increase pilocarpine to 4 times a day-new scripts sent in 3. Continue care with Oncology 4. Return to clinic in 6 months Cyrus Ferreira MD Department of Rheumatology documented in this encounter Nursing Notes * Mansi Mitchell LPN - 03/10/2024 10:05 AM EST Chief Complaint Patient presents with Rheum Follow Up Follow up - / sjogrens documented in this encounter Plan of Treatment Upcoming Encounters Date Type Department Care Team (Latest Contact Info) Description 03/15/2024 11:40 AM EST [facility] [address] [facility] [place] [address] Chris Benson, [address] [place] [address] 03/22/2024 11:20 AM EST Office Visit Ophthalmology, [facility] [address] [facility] [place] [address] Chris Benson, DO [address] [place] [address] 03/29/2024 11:20 AM EST Office Visit Ophthalmology, [facility] [address] [facility] [place] [address] Chris Benson, DO [address] [place] [address] 04/05/2024 11:20 AM EST Office Visit Ophthalmology, [facility] [address] [facility] [place] [address] Chris Benson, DO [address] [place] [address] 04/27/2024 1:30 PM EST Hospital Encounter ENDO [facility], Endoscopy Room [facility] [address] [facility] [place] [phone] Serena Soto, DO [address] [facility] [place] [address] 04/27/2024 1:30 PM EST - 04/27/2024 2:00 PM EST Surgery ENDO [facility], Endoscopy Room [facility] [address] [facility] [place] [phone] Serena Soto, DO [address] [facility] [place] [address] COLONOSCOPY FLEXIBLE PROXIMAL DIAGNOSTIC 09/22/2024 10:40 AM EDT Office Visit Rheumatology [place] [address] [address] [place] [address] Cyrus Ferreira MD [address] [place] [address] [place] [address] Scheduled Procedures Name Priority Associated Diagnoses Date/Ti [...] as of this encounter Visit Diagnoses Diagnosis Sjogren's syndrome with keratoconjunctivitis sicca (HCC)- Primary Ankylosing spondylitis of multiple sites in spine (HCC) Ankylosing spondylitis Diarrhea History of colon polyps Personal history of colonic polyps documented in this encounter
--- OUTSIDE RECORDS SUMMARY | 2024-03-25 19:51 | External Medical Summary | Summary of Care ---
Author Name Unknown Organization [facility] Address [address] [place] [address] Phone [phone] Care Team Providers Care Maintenance Shop Clerk Name Role Phone Unavailable Primary Care Provider Unavailabl e Reason for Visit * Reason Onset Date Comments Follow Up 03/01/2024 Encounter Details Date Type Department Care Team (Late st Contact Info) Description 03/01/[address] [facility] [address] [place] [address] Chris Benson, [address] [place] [address] Follow Up Allergies Active Allergy Reactions Criticality Noted Date [...] hypoallergenic earrings Certain perfumes & lotions, certain jewelry designer and sprays Ibuprofen 06/16/2008 bruising Lamotrigine Rash [...] 0.4 MG/SPRAY Translingual Solution (Nitrolingual) Place 1 [place] under the tongue as needed for Pain, Chest. Active Betamethasone Dipropionate 0.05 % External Ointment Start: 02/04/23 16:03:00 EDT, 1 appl, topical, bid, Disp# 45 g, Refills: 3, to hands BID, Pharmacy: [facility] 3 Active Clobetasol Propionate 0.05 % External Ointment (Temovate) Start: 02/04/23 13:55:00 EDT, 1 appl, topical, Daily, Disp# 45 g, Refills: 3, apply to hands qhs, Pharmacy: [facility] 3 Active Lomotil 2.5-0.025 MG Oral [...] on file documented as of this encounter Miscellaneous Notes * Telephone Encounter - Verito Perez OSA - 03/01/2024 11:51 AM EST Pt would like to be scheduled for weekly appointments on Friday between 11:00-12:00. No availability until 05/10/24. documented in this encounter Plan of Treatment Upcoming Encounters Date Type Department Care Team (Latest Contact Info) Description 03/10/2024 10:00 AM EST Office Visit Rheumatology [facility] [address] [place] [address] Cyrus Ferreira MD [address] [place] [address] 04/27/2024 1:30 PM EST Hospital Encounter ENDO [facility], Endoscopy Room [facility] [address] [place] [phone] Serena Soto, DO [address] [place] [address] 04/27/2024 1:30 PM EST - 04/27/2024 2:00 PM EST Surgery ENDO [facility], Endoscopy Room [facility] [address] [place] [phone] Serena Soto, DO [address] [place] [address] COLONOSCOPY FLEXIBLE PROXIMAL DIAGNOSTIC Scheduled Procedures Name [...]
--- OUTSIDE RECORDS SUMMARY | 2024-03-25 19:51 | External Medical Summary | Continuity of Care Document ---
Author Name Unknown Organization [facility] [address] [facility] [address] Address [facility] [facility] [address] [place], [place] [id number] Encounter [facility] [id number] Date(s): 03/16/24 - 03/16/24 [facility] [address] [facility] [address] [facility] En[facility] A, [address] [place] [id number] [phone] Encounter Diagnosis Thyroid cancer(Discharge Diagnosis) - 03/16/24 Discharge Disposition: Home or Self Care Attending Physician: MD Tyler, Vish Ward Allergies, Adverse Reactions, Alerts Substance Criticality Severity Reaction Reaction Severity Status ibuprofen brusining Active aspirin bruising Active Lamictal rash and welts Activ e Tigan moderate/severe muscle contractions Active Topamax rash Active Compazine severe muscle contractions Active bacitracin/diperodin/ neomycin/polymyxin B topical ointment skin rash Active doxycycline Active tetracycline hives and rash Ac tive mupirocin topical 1, 2 Active Lotemax pain, irritation Act meenu Bentyl open areas on buttocks Rash Active Polysporin skin rash Active Neosporin skin rash Active PABA skin rash Active Bactrim 3 Rash Active Xibrom eyelid swelling and swelling of skin around eyes Active Trace Metals skin irritation A ctive Lyrica swelling in beltre ds and feet Active wool Skin rash and Hives Active Adhesive bandage rash, welts , swelling Active Allergy Not found in Search 4, 5 certain perfumes lotions , 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 Ivory Soap Active Bee stings unknown Active 1pt stated "they tried using for MRSA and it burned and got redder" 2pt stated she would like removed from chart, is in error 3broke out in rash, severe diarrhea can affect breathing sinuses and upper respiratory headaches itching swelling and irritation in eyes. 5Skin rash Immunizations Given and Recorded Vaccine Date Status Refusal Reason tetanus/diphtheria/pertuss, acel (Tdap) 12/30/23 R ecorded tetanus toxoids-diphtheria, Td (Adult) 11/16/03 Re corded Not Given Vaccine Date Status Refusal Reason influenza virus vaccine, inactivated 02/04/18 Not Given Patient Refuses Medications Acular Start: 12/21/15 3:47:00 PM EDT, 1 drop, both eyes, qid Start Date: 12/21/15 Status: Ordered acyclovir 400 mg oral tablet Start: 04/04/22 4:12:00 PM EST, 1 tab, PO, tid, Disp# 270 tab, Refills: 3, Pharmacy: [facility] Start Date: 04/04/22 Stop Date: 03/30/23 Status: Ordered Afrin Saline nasal spray Start: 01/22/10 2:22:34 PM EDT, bid, Refills: 0, PRN: prn, current medication from another provider Start Date: 01/22/10 Status: Ordered Ajovy 225 mg/1.5 mL subcutaneous solution Start: 09/02/23 3:49:00 PM EDT, 225 mg =, subQ, qmonth (30 days) Start Date: 09/02/23 Status: Ordered Ambien 10 mg oral tablet Start: 01/22/10 2:18:33 PM EDT, 1 tab, PO, qhs, Refills: 0, current medication from another provider Start Date: 01/22/10 Status: Ordered Benadryl Start: 11/25/11 1:38:00 PM EDT, 1 tab, PO, Daily, PRN: as needed for allergy symptoms Start Date: 11/25/11 Status: Ordered betamethasone dipropionate 0.05% topical ointment Start: 02/04/23 4:03:00 PM EDT, 1 appl, topical, bid, Disp# 45 g, Refills: 3, to hands BID, Pharmacy: [facility] Start Date: 02/04/23 Status: Ordered Brukinsa 80 mg oral capsule Start: 02/25/24 10:59:00 AM EST, 2 cap, PO, bid, Disp# 120 cap, Refills: 5, Pharmacy: [facility] Pharmacy Start Date: 02/25/24 Stop Date: 08/23/24 Status: Ordered clobetasol 0.05% topical ointment Start: 02/07/23 3:11:00 PM EDT, 1 appl, topical, Daily, Disp# 45 g, Refills: 3, apply to hands qhs, Note to Pharmacy: pt will use a GoodRx coupon, [id number] Start Date: 02/07/23 Status: Ordered codeine sulfate 30 mg oral tablet Start: 06/15/19 3:33:00 PM EDT, 1 tab, PO, q4h, Disp# 7 tab, Refills: 0, PRN: as needed for cough, Pharmacy: [facility] Start Date: 06/15/19 Status: Ordered Econazole Nitrate 1% topical cream Start: 02/04/23 1:57:00 PM EDT, 1 appl, topical, bid, Disp# 85 g, Refills: 3, apply to feet and toes and calf, Pharmacy: [facility] Start Date: 02/04/23 Status: Ordered Fioricet oral tablet Start: 01/22/10 2:11:34 PM EDT, 2 tab, PO, q4h, Refills: 0, current medication from another provider Start Date: 01/22/10 Status: Ordered Flexeril 10 mg oral tablet Start: 01/22/10 2:04:22 PM EDT, 1 tab, PO, tid, Refills: 0, current medication from another provider Start Date: 01/22/10 Status: Ordered furosemide Start: 02/14/21 2:49:00 PM EST, 40 mg =, Note to Pharmacy: 1 1/2 tab po in AM Start Date: 02/14/21 Status: Ordered Imitrex 100 mg oral tablet Start: 02/14/21 2:59:00 PM EST, 1 tab, PO, ONCE, PRN: as needed for migraine headache Start Date: 02/14/21 Status: Ordered Imodium A-D Start: 04/25/14 11:57:00 AM EST, 2 mg =, PO, q4h, PRN: as needed for loose stool Start Date: 04/25/14 Status: Ordered Istalol long-acting, 0.5% ophthalmic solution Start: 11/01/13 11:16:00 AM EDT, 1 drop, both eyes, bid Start Date: 11/01/13 Status: Ordered Magic Swizzle oral soln (Rcvatx-agzmniwfg-[id number]) Start: 12/21/15 4:55:00 PM EDT, 15 mL, swish + spit, As indicated, Disp# 300 mL, Refills: 2, Note toPharmacy: [facility] formulation includes equal amounts of Maalox, lidocaine and diphenhydramine, Pharmacy: [facility] Start Date: 12/21/15 Status: Ordered meclizine 25 mg oral tablet Start: 01/22/10 2:07:02 PM EDT, 1 tab, PO, qid, Refills: 0, current medication from another provider Start Date: 01/22/10 Status: Ordered metoprolol succinate 25 mg oral tablet, extended release Start: 10/10/22 10:00:00 AM EDT, 1 tab, as needed throughout the day Start Date: 10/10/22 Status: Ordered metoprolol tartrate Start: 03/12/19 10:35:00 AM EST, 50 mg =, PO, tid, As needed Start Date: 03/12/19 Status: Ordered MS Contin 30 mg oral tablet, extended release Start: 09/02/23 3:50:00 PM EDT, 1 tab, PO, q12h, Refills: 0 Start Date: 09/02/23 Status: Ordered Mucinex Start: 09/19/10 11:20:00 AM EDT, 400 mg =, q12h, tab, Every 46 hrs as needed as per ppatient Start Date: 09/19/10 Status: Ordered Mylanta Start: 03/05/16 2:53:00 PM EST, See Instructions, as needed. Start Date: 03/05/16 Status: Ordered Nasacort AQ 55 mcg/inh nasal spray Start: 11/01/13 11:13:00 AM EDT, 1 spray, each nostril, ac and hs Start Date: 11/01/13 Status: Ordered ofloxacin ophthalmic 0.3% solution Start: 01/22/10 2:13:14 PM EDT, 1 drop, both eyes, qid, Refills: 0, current medication from anotherprovider Start Date: 01/22/10 Status: Ordered oxyCODONE 10 mg oral tablet Start: 09/02/23 3:50:00 PM EDT, 1 tab, PO, q6h, Refills: 0, PRN: Pain Start Date: 09/02/23 Status: Ordered Patanol Start: 11/01/13 11:15:00 AM EDT, 1 drop, both eyes, bid Start Date: 11/01/13 Status: Ordered Patanol 0.1% ophthalmic solution Start: 03/12/19 10:38:00 AM EST, 1 drop, both eyes, bid Start Date: 03/12/19 Status: Ordered Pepcid 20 mg oral tablet Start: 02/07/18 11:55:00 AM EDT, 1 tab, PO, bid, PRN: Dyspepsia Start Date: 02/07/18 Status: Ordered potassium chloride Start: 02/14/21 2:57:00 PM EST, 10 mEq =, PO, 2 cap po BID Start Date: 02/14/21 Status: Ordered Pred Forte 1% ophthalmic suspension Start: 10/11/16 10:05:00 AM EDT, 1 drop, both eyes, tid, PRN Start Date: 10/11/16 Status: Ordered predniSONE 5 mg oral tablet TAKE 3 TABS BY MOUTH DAILY FOR 3 DAYS THEN 2 TABS DAILY X 3 DAYS, 1 TAB DAILY X 3 DAYS THEN 1 TAB EVERY OTHER DAY FOR 5 DAYS THEN STOP Start Date: 08/16/20 Status: Ordered promethazine 25 mg oral tablet Start: 02/07/18 11:59:00 AM EDT, 1 tab, PO, q4h, PRN: Nausea and Vomiting Start Date: 02/07/18 Status: Ordered Protonix Start: 02/12/18 10:16:00 AM EST, 40 mg =, PO, Daily Start Date: 02/12/18 Status: Ordered Pyridium 200 mg oral tablet Start: 04/22/19 3:36:00 PM EST, 1 tab, PO, tid, Disp# 42 tab, PRN: as needed for urinary discomfort,Pharmacy: [facility] Start Date: 04/22/19 Stop Date: 05/06/19 Status: Ordered Refresh Start: 03/05/16 2:58:00 PM EST, See Instructions, refresh eye drops preservative free. to both eyesevery 45 minutes Start Date: 03/05/16 Status: Ordered Relafen 750 mg oral tablet Start: 05/01/15 11:01:00 AM EST, 1 tab, PO, bid, for 3 wks per month Start Date: 05/01/15 Status: Ordered Salagen 5 mg oral tablet Start: 01/22/10 2:04:37 PM EDT, 1 tab, PO, qid, Refills: 0, current medication from another provider Start Date: 01/22/10 Status: Ordered SSD 1% topical cream Start: 04/04/22 4:12:00 PM EST, See Instructions, Disp# 25 g, Refills: 3, APPLY TOPICALLY TWICE DAILY FOR 30 DAYS, Pharmacy: [facility] Start Date: 04/04/22 Status: Ordered Sudafed Start: 10/11/16 10:04:00 AM EDT, PO, PRN Start Date: 10/11/16 Status: Ordered Synthroid 175 mcg (0.175 mg) oral tablet Start: 03/16/24 11:22:00 AM EST, See Instructions, Disp# 96 tab, 1 tab PO Daily on 6 days per week + 1-1/2 tab daily on 1 day per week as directed, other Start Date: 03/16/24 Status: Ordered Toprol-XL 50 mg oral tablet, extended release Start: 02/07/18 11:57:00 AM EDT, PO, bid, 150mg po in AM/ 100mg po PM Start Date: 02/07/18 Status: Ordered Toradol Start: 05/01/15 11:02:00 AM EST, 10 mg =, PO, tid, x1 week per month when off relafen Start Date: 05/01/15 Status: Ordered triamcinolone 0.1% topical cream Start: 10/25/22 11:20:00 AM EDT, 1 appl, topical, bid, Disp# 80 g, Refills: 3, Pharmacy: [facility] Start Date: 10/25/22 Status: Ordered Tylenol with Codeine #3 oral tablet Start: 06/16/19 8:47:00 AM EDT, 1 tab, PO, q6h, Disp# 7 tab, PRN: as needed for cough, Pharmacy: [facility] Start Date: 06/16/19 Status: Ordered Venclexta 100 mg oral tablet Start: 09/24/22 9:25:00 AM EDT, 2 tab, PO, Daily, Disp# 60 tab, Refills: 5, Pharmacy: [facility] Pharmacy Start Date: 09/24/22 Status: Ordered Venclexta 100 mg oral tablet Start: 09/23/22 4:16:00 PM EDT, See Instructions, Disp# 60 unknown unit, Refills: 2, TAKE TWO ( 100MG) TABLETS BY MOUTH DAILY, Pharmacy: [facility] Start Date: 09/23/22 Status: Ordered Vigamox 0.5% ophthalmic solution Start: 02/07/18 11:58:00 AM EDT, 1 drop, both eyes, qid, PRN: dry eyes Start Date: 02/07/18 Status: Ordered Voltaren 1% topical gel Start: 06/04/17 8:37:00 AM EST, 1 appl, topical, qid, PRN: Pain Start Date: 06/04/17 Status: Ordered Zofran 8 mg oral tablet Start: 03/12/16 6:26:00 PM EST, 8 mg =, PO, q8h, Disp# 90 tab, Refills: 3, PRN: as needed for nausea/vomiting, called to pharmacy Start Date: 03/12/16 Status: Ordered Zyrtec 10 mg oral tablet Start: 01/22/10 2:03:49 PM EDT, 1 tab, PO, Daily, Refills: 0, current medication from another provider Start Date: 01/22/10 Status: Ordered Problem List Condition Confirmation Course Effective Dates Status Health Status Informant Abdominal pain Confirmed Active Angina Confirmed Active Anklosing spondylitis Confirmed Active Beta thalassemia Confirmed Active Blurry vision, left eye Confirmed Active CARPAL TUNNEL SYNDROME Confirmed Active Cellulitis Confirmed Active Cervical lymphadenopathy Confirmed Active Cholesteatoma 1 Confirmed Active Chronic dacryocystitis Confirmed Active CLL (chronic lymphocytic leukemia) Confirmed Active Chronic sinusitis Confirmed Active Cluster headaches Confirmed Active Coloboma of eye Confirmed Active Concussion with no loss of consciousness Confirmed Active Constipation 2 Confirmed Active Cyst (solitary) of breast 3 Confirmed Active Dacrocystitis Confirmed Active DVT (deep venous thrombosis) 4, 5 Confirmed Active Tinea Confirmed Active Diarrhea Confirmed Active Dyslipidemia Confirmed Active Family history of skin cancer 6 Confirmed Active Fibromyalgia Confirmed Active Fluid retention Confirmed Active GERD (gastroesophageal reflux disease) Confirmed Active Glaucoma Confirmed Active Heart murmur Confirmed Active Hypertriglyceridemia Confirmed Active Hypokalemia Confirmed Active Hypothyroidism Confirmed Active IBS (irritable bowel syndrome) Confirmed Active Immunosuppressed status Confirmed Active Influenza A Confirmed Active Flu-like symptoms Confirmed Active 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 Active Mass of left eye Confirmed Active 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, 9, 10, 11, 12, 13, 14, 15, 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/20/13 Active Migraines Confirmed Active Myofascial pain Confirmed Active Nerve damage 17 Confirmed Active Osteoarthritis Confirmed Active Papillary thyroid carcinoma Confirmed Active Polyneuropathy Confirmed Active Radiculopathy Confirmed Active Right upper quadrant pain Confirmed Active ROSACEA Confirmed Active Sjogren's disease Confirmed Active Degenerative joint disease of cervical and lumbar spine Confirmed Active Systemic inflammatory response syndrome Confirmed Active Tachycardia 18 Confirmed Active Trigeminal neuralgia Confirmed Active VERTIGO Confirmed Active Weight disorder Confirmed Active 1of left apex 2IBS constipation 3Right 4Blood clot in Left Femoral Vein in December 2005 5Blood clot in Left leg in December 1984 6father had melanomas 7small cell lymphocytic lymphoma 8MRSA PCR RESCREEN POSITIVE 01/28/18. 9finger wound culture + MRSA 10MRSA in Left ear- 2014 114+ MRSA wound culture 123+ MRSA ear 131/7/15 Wound Culture Skin Behind Ear 2+MRSA 14WOUND LEFT POSTAURICULAR AREA 4+ STAPHYLOCOCCUS AUREUS (RESISTANT TO OXACILLIN) Wound.Cx August 17, 2013 09:40 151/05/2013 Wound Culture Skin Abrasion 1+MRSA +MRSA Wound Culture Right Third Finger 17Left arm and hand 18atrial tachycardia & SVT Diagnosis Diagnosis Type Effective Dates Health Status Cl inical Service Informant Thyroid cancer Discharge Diagnosis 03/16/24 Procedures Procedure Date Related Diagnosis Body Site Status MRI thoracic spine wo/w con 1 04/16/21 Completed Dilation of lacrimal punctum with irrigation 2 07/09/19 Completed Chest x-ray 3 06/15/19 Completed CXR - Chest X-ray 4 06/04/[address] of abdomen and pelvis 5 11/25/17 Completed Esophagogastroduodenoscopy (procedure) 11/20/17 Completed Fiberoptic colonoscopy with biopsy (procedure) 11/20/17 Completed Upper GI endoscopy 6 11/20/17 Comp leted MRI of head 7 09/04/17 Completed X-ray of rib 8 08/19/17 Completed Ultrasound scan of thyroid 9 07/22/17 Completed Hip X-ray 10 05/20/[address] of lumbar spine 11 05/19/[address] of lumbar spine 12 05/19/17 Com pleted Doppler 13 05/19/17 Completed Mammogram 14 12/11/16 Completed Date of last PAP test 15 12/10/16 Completed Pelvis X-ray 16 09/13/16 Completed X-ray of bone of hip 17 09/13/16 C ompleted X-ray of lumbosacral spine 18 09/13/16 Completed Chest x-ray 19 01/12/16 Completed MRI of cervical spine 20 01/05/16 Completed MRI of lumbar spine 21 01/05/16 Co mpleted Date of last PAP test 22 12/07/15 Completed Mammogram 23 11/29/15 Completed Abnormal brain MRI 24 07/05/15 Com pleted Upper GI endoscopy 25, 26 12/22/14 Completed MRI of ankle 27 12/14/14 Completed Procedure 28 07/07/14 Completed Sinuses X-ray 29 06/15/14 Complete d Mammogram 30 02/28/14 Completed Surgery right eye 01/17/14 Complet ed Colonoscopy and biopsy of colon 31 10/15/13 Completed Punch biopsy of skin 08/10/13 Comp leted Colonoscopy 32 05/14/13 Completed Colonoscopy and biopsy of colon 33, 34 05/14/13 Completed Biopsy of breast 35 03/17/12 Compl eted CEIOL - Cataract extraction and insertion of intraocular lens/BE 2009 Completed Cardiovascular stress test u sing the dobutamine stress test protocol 06/22/08 Completed Anal sphincterotomy Compl eted Angular closure 36 Comple scottie Bone marrow biopsy Comple scottie cholangiopancreatography -12/11/2012 Completed Cholecystectomy Completed Colonoscopy 37 Completed Cortisone acetate 50mg/mL injection 38 Completed Endoscopy of GI tract 39 Completed ERCP - Completed esophageal dilitation Com pleted Exteriorization of pilonidal cyst or sinus Completed Hysterectomy Completed Irrigation 40 Completed laser eye surgery 41 Comp leted LPI - Laser peripheral iridotomy/BE Completed Oral surgery 42 Completed MCNALLY - Radioactive iodine therapy Completed Rhinoplasty Completed S/P knee surgery 43 Compl eted Shave biopsy Completed Sub mandibular ymph nodes removed Completed Thyroidectomy Completed tibial tubal transfer Com pleted Tonsillectomy with adenoidectomy Completed Tumor of ear, nose and throat 44 Completed 11. No acute fracture, subluxation or endplate erosion. No MRI evidence of discitis/osteomyelitis 2. No epidural abscess or suspicious enhancement 3. Multilevel degenerative changes as above. No significant canal stenosis 4. Normal signal of the thoracic spine cord 5. Trace pleural effusion 2[facility] Punctal dilation with irrigation. Right eye lower eyelid with aspiration of sac for culture 3Negative chest 4No acute process 51. Significant interval enlargement of lymphadenopathy in the abdomen and pelvis. This raises concern for lymphoproliferative disase though other etiologies such as sarcoidosis could be considered given the chronicity of some degree of lymphadenopathy. External iliac lymph nodes would lkely be amenable to percutaneous Ct guided biopsy if this is of clinical necessity. 2. Endoscopy clip projects over the pylorus. 3. Hepatic steatosis. 6Normal esophagus. Small hiatal hernia. A single gastric polyp. Normal examined duodenum. 7T2/FLAIR hyperintensity in bilateral periventricular white matter are unchanged and likely chronic microangiopathis changes. No abnormal enhancement identified. 8No evidence of penumothorax. No left sided rib fractures are visualized. 9When compared to the most recent prior exam, all of the lymph nodes had some residual fat in their hilar regions. On this exam all of the lymph nodes have increased in size and number and no longer have fat in their hilar regions. On the right, the more supreior lymph nodes have increased in size, in the transverse plane, they previously measure 5mm and 8 mm and now measure 8mm and 10mm. On the right the lymph nodes which wereseparately measured just superior to the clavicle appear to be the lymph nodes which are matted together in the mid cervical chain. On the left, there was a small, 6mm lymph node in the left thyroid bed, there are no other lymph nodes imaged int he left side of the neck in 2013. 101. No acute bony abnormality. 2. Study specifically negative for fracture. 3. Calcific trochanteric bursitis. 111. Progressively worsened retroperiotneal adenopathy as above from comparison study 01/05/2016 likely correlating with patient's known history of lymphoma/leukemia. 2. Grade 1 anterolisthesis of L4 on L5 with discogenic degenerative changes and facet arthrosis results in moderate to severe central canal, severe right and mild to moderate left foraminal narrowing. The degree of central canal stenosis has slightly worsened from comparison. 3. Additional discogenic degenerative chanes and facet arthrosis as above. 12No acute lumbar spine fracture or subluxation Increase in moderate retroperitoneal lymphadenopathy since MRI Jan 05, 2016 Moderate to severe central canal stenosis at L4-5 Grade 1 anterolisthese of L4 and L5 with marked disc space narrowing at this level. 13No DVT within the left lower extremity. 141. Stable mammographic appearance of the breasts, without mammographic evidence of malignancy. Screening in 1 year. 15Negative for intraepithelial lesion or malignancy. 16No acute fracture within the pelvis or hips. 17No acute fracture. No significant abnormality of the right hip. 181. No acute lumbar spine fracture. 2. Grade 1 anterolisthesis of L4 and L5 which has mildly increased since MRI of December is likely due to facet arthrosis. 3. Severe facet arthrosis at L4-L5. Moderate multilevel degenerative disc disease and facet arthrosis of the lumbar spine. 19[facility] Impression: no acute cardiopulmonary findings 201.No significant change from the prior 2010 study. 2. No evidence of pathologic marrow replacement. 3. No evidence of spine stenosis. 4. Mild disc bulge at the C4-5 level with minimal foraminal narrowing. 211. Mild retroperitoneal lymphadenopathy. This likely corresponds to the patitent's history of lymphoma. 2. Progressive multilevel degenerative disc disease as described above. This is most pronounced at the L4-5 level where there is multifactorial moderate to severe central canal narrowing. 22Negative for intraepithelial lesion or malignancy. 231. Stable bilateral mammograms, without mammographic evidence of malignancy. 2. Morphologically abnormal lymph nodes are again seen in both axillary regions, without evidence of a new suspicious lymph node or lymphadenopathy in the breasts. Clinical correlation is recommendedas biopsy of a new clinically suspicious mass should not be precluded by negative imaging. 241. A few, small nonspecific, nonenhancing supracentorial white matter foci unchaged likely related to chronic ischemic small vessel disease or gliosis rather than demyelination. 2. Abnormal morphology, signal and enhacement at left petrous apex, unchaged from prior exam likelyrelated to benign etiology such as hemangioma or fibrous dysplasia rather than neoplasm. 25Pathology Report. Stomach, antrum, biopsy: 1. Ulcer 2. Reactive cellular changes noted. 3. Immunostain for helicobacter pylori: negative. 4. Clinical correlation recommended. 5. The specimen consistsof irregular, ulcerated, heavily inflamed gastric mucosa. In the lamina propria are numerous small groups of atypical cells suggestive of reactive endothelial cells. CD31 highlights the cells of interest and a pankeratin immunostain highlights surface ellthellum. The overall findings are in keepingwith an ulder. While there is some nuclear hyperchormasia this is in keeping with a reactive process. If this patients ulcer does not heal in an appropriate clinical time frame then additional evaluation and biopsy is recommended to exclude a coexistent neoplasm. 26[facility] Impression: 1. Normal esophagus 2. Multiple gastric polyps 3. Gastritis. Biopsied. 4. Normal examined duodenum 271. There is thickening and abnormal signal identified within the tibials posterior tendon at the navicular insertion, likely reflecting tendinopathy and possibly partial thickness tear. This is deep to the site of pain indicated by the patient. 2. There is subcutaneous soft tissue edema in the medial aspect of the ankle at this level. Milder soft tissue edema is present along the lateral aspect of the ankle. 3. There is no MRI evidence of fracture in the ankle. The Achilles tendon is normal in morphology and signal intensity. 4. Suspect chronic injury of the anterior talofibular ligament. 28Upper abdomen CT scan 29The paranasal sinuses ans mastoid air cells appear clear. 30Diagnostic 31tubular adenoma 32Random colon biopsies Sigmoid colon polyp, sessile, 0.5 cm s/p complete removal via hot snare Minimal rectal inflammation s/p biopsies Internal hemorrhoids 33A. Colon, sigmoid, polypectomy: Tubular adenoma. B. Colon, random biopsy: 1. Benign colonic mucosa with variable edema. 2. No significant inflammation identified. C. Rectum, biopsy: 1. Benign colonic mucosa with mild, nonspecific reactive changes. 2. No significant inflammation present. Repeat in 5 years 34next colonoscopy in 5 years 35benign 36Glaucoma 37numerous 38L arm 39Numerous 40tear ducts on a weekly basis 41left eye 42multiple 43Left knee x9 44Removed(THroat) Social History Social History Type Response Smoking Status Never smoked cigaret jodie Sex Female Sex Representation Female (finding) Patient Care team information Care Team Personnel Name: MARIA INES Cortez Tara Position: Nurse Pract - Family Med Member Role: Lifetime Relationship Address: [address] [place] [id number] Name: MD Tyler, Vish Ward Position: Physician - Endocrinology Member Role: Lifetime Relationship Address: [address] [place] [id number] Name: Vijay Callejas Erin Position: Pharmacist Member Role: Pharmacy - Lifetime Name: Sapphire Hahn RPh, William Position: Pharmacist Member Role: Pharmacy - Lifetime Name: MD Denis, Leland Mcfadden Position: Physician - Hem/Onc Member Role: Lifetime Relationship Address: [address] [place] [id number] Name: Vijay Cardona Annette Position: Pharmacist Member Role: Pharmacy - Lifetime Care Team Related Persons Name: RENEE ARCOS Name: JAC KIM III Name: JAC KIM III
--- OUTSIDE RECORDS SUMMARY | 2024-03-25 19:52 | External Medical Summary | Continuity of Care Document ---
Author Name Unknown Organization [facility] Address [address] [place] [address] KIRT ONEAL [phone] Encounter [facility] MARIA ESTHERNBR [id number] Date(s): 02/25/24 - 02/25/24 [facility] [id number], [place] [address]- [phone] Encounter Diagnosis Chronic lymphocytic leukemia (CLL), B-cell(Discharge Diagnosis) - 02/25/24 Discharge Disposition: Home or Self Care Attending Physician: [facility] Allergies, Adverse Reactions, Alerts Substance Criticality Severity [...] Search 4, 5 certain perfumes lotions , cognos lead air sprays with 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 Ivory Soap Active Bee stings unknown Active 1pt stated "they tried using for MRSA and it burned and got redder" 2pt stated she would like removed from chart, is in error 3broke out in rash, severe diarrhea /29/16 can affect breathing sinuses and upper respiratory headaches itching swelling and irritation in eyes. 5Skin rash Assessment and Plan Extracted from: Title:TeleHealth Visit Note Author:MD Maeve, Natthapol Date:02/25/24 1.CLL (chronic lymphocytic leukemia) ASSESSMENT: 1.Chronic lymphocytic leukemia/small lymphocytic lymphoma,hadshowed signs of early progression off venetoclax with an increase in lymphocyte count, appearance of axillary node, and increase in fatigue. PET/CT done on 01/30/22 showed no radiographic evidence of large cell transformation. EUS with bx of aziza hepatis lymph node showed SLL.Had been on venetoclax 200 mg daily (has not beenable to tolerate doses above this) and most recently since t 200 mg alternating with [address] on 12/25/22 showed overall progression of adenopathy. ALC has been steadily increasing; latest increase has been from 3.43 to 5.36. CLL FISH studies in 01/2023 showed positive for 11q (and 13q) in ~ 50% of nuclei. 2.Chronic dacryocystitis. 3.Beta thalassemia trait. 4.Sjogren syndrome. 5.Ankylosing spondylitis. 6. Iron deficiency, with previousferritin 14.5 and iron sat 16%. Most recently improved to 21 and 21%, respectively. PLAN: Given overall worsening labs and CT findings, in 01/2023 we continued to discuss that it would be best to change/add therapies. Rituximab (given previous difficultytolerating obinutuzumab) would be reasonable to add to venetoclax (MURANO trial) with rituximab q 28 days X 6. She was only able to receive [address] Nuñez locally due to intolerance. Has been on calquence 100 mg daily since end of August 2023 (and venetoclax stopped - previous dosing was 200 mg alternating with 100 mg daily) and has declined twice daily dosing due to concern for adverse effects as detailed above. She has notably had significant mobilization of WBC/ALC. At this juncture, due to concern for intolerance to calquence, she would like to try brukinsa. We can initially do 80 mg daily dosing and then hopefully increase eventually to full dose of 160 mg BID. Will send for prior auth and likely Prescription Assistance Program. Shehas previouslyhad someconcern about cardiac side effects with BTK inhibitors. Of note, she does follow closely with cardiology in [facility]. She is getting labs q2 weeks. Can also continue to monitor iron studies. She previously received 4 iron infusions. Follow-up in 04/2024 via telehealth. Keyanna Mcfarlane MD Addendum by MD Maeve, Adwoa godinez on February 25, 2024 11:01:04 EST Also had discussed recent approval (in last 1 year)of pirtobrutinib. Keyanna Mcfarlane MD Immunizations Given and Recorded Vaccine Date Status [...] tid, Disp# 270 tab, Refills: 3, Pharmacy: [facility] Start Date: 04/04/22 Stop Date: 03/30/23 [...] g, Refills: 3, to hands BID, Pharmacy: [facility] Start Date: 02/04/23 Status: Ordered Brukinsa 80 mg oral capsule Start: 02/25/24 10:59:00 AM EST, 2 cap, PO, bid, Disp# 120 cap, Refills: 5, Pharmacy: [facility] Pharmacy Start Date: 02/25/24 Stop Date: 08/23/24 Status: Ordered clobetasol 0.05% topical ointment Start: 02/07/23 3:11:00 PM EDT, 1 appl, topical, Daily, Disp# 45 g, Refills: 3, apply to hands qhs, Note to Pharmacy: pt will use a GoodRx coupon, Pharmacy: [id number] Start Date: 02/07/23 Status: Ordered codeine sulfate 30 mg oral tablet Start: 06/15/19 3:33:00 PM EDT, 1 tab, PO, q4h, Disp# 7 tab, Refills: 0, PRN: as needed for cough, Pharmacy: [facility] Start Date: 06/15/19 Status: Ordered Econazole Nitrate 1% topical cream Start: 02/04/23 1:57:00 PM EDT, 1 appl, topical, bid, Disp# 85 g, Refills: 3, apply to feet and toes and calf, Pharmacy: [facility] Start Date: 02/04/23 Status: Ordered Fioricet [...] 11/01/13 Status: Ordered Magic Swizzle oral soln (Okpeyp-tbkgfwwuf-xllltfhtroslexs) Start: 12/21/15 4:55:00 PM EDT, 15 mL, swish + spit, As indicated, Disp# 300 mL, Refills: 2, Note toPharmacy: [facility] formulation includes equal amounts of Maalox, lidocaine and diphenhydramine, Pharmacy: [facility] Start Date: 12/21/15 Status: Ordered meclizine 25 [...] tab, PRN: as needed for urinary discomfort,Pharmacy: [facility] Start Date: 04/22/19 Stop Date: 05/06/19 [...] TOPICALLY TWICE DAILY FOR 30 DAYS, Pharmacy: [facility] Start Date: 04/04/22 Status: Ordered Sudafed Start: 10/11/16 10:04:00 AM EDT, PO, PRN Start Date: 10/11/16 Status: Ordered Toprol-XL 50 mg oral tablet, [...] bid, Disp# 80 g, Refills: 3, Pharmacy: [facility] Start Date: 10/25/22 Status: Ordered Tylenol with Codeine #3 oral tablet Start: 06/16/19 8:47:00 AM EDT, 1 tab, PO, q6h, Disp# 7 tab, PRN: as needed for cough, Pharmacy: [facility] Start Date: 06/16/19 Status: Ordered Venclexta 100 mg oral tablet Start: 09/24/22 9:25:00 AM EDT, 2 tab, PO, Daily, Disp# 60 tab, Refills: 5, Pharmacy: [facility] Pharmacy Start Date: 09/24/22 Status: Ordered Venclexta 100 mg oral tablet Start: 09/23/22 4:16:00 PM EDT, See Instructions, Disp# 60 unknown unit, Refills: 2, TAKE TWO ( 100MG) TABLETS BY MOUTH DAILY, Pharmacy: [facility] Start Date: 09/23/22 Status: Ordered Vigamox 0.5% [...] Diagnosis Diagnosis Type Effective Dates Health Status Clinical Service Informant Chronic lymphocytic leukemia (CLL), B-cell Discharge Diagnosis 02/25/24 Non-Specified Procedures Procedure Date Related Diagnosis Body Site [...] of GI tract 39 Completed ERCP - 12/11- Completed esophageal dilitation Com pleted Exteriorization of [...] facet arthrosis of the lumbar spine. 19[facility] Impression: no acute cardiopulmonary findings 201.No significant [...] recommended to exclude a coexistent neoplasm. 26[facility] Impression: 1. Normal esophagus 2. Multiple gastric [...] jodie Sex Female Sex Representation Female (finding) Hematology/Oncology Outpt Note * Songdej, MD, Natapol: PERFORM, MODIFY, MODIFY, MODIFY, MODIFY Event Display: Hematology/Oncology Outpt Note Authored Date: [id number] TeleHealth Visit Note I have confirmed the patients name and date of . The patient has consented to this service,and I have advised the patient that this is a billable visit for which they may be subject to a copay. The patient initiated this visit after they were informed of the availability of TeleHealth for this medically necessary visit. I am located at my office. The patient is located at home. This visit was conducted via live audio/video technology via [employer].36 minon visit+ 25min indocumentation andcoordination ofcare Chief Complaint follow-up History of Present Illness Lashay is a very pleasant 68 yo woman who presents for follow-upof chronic lymphocytic leukemia and small lymphocytic lymphoma. She has been seen by Dr. Barrios, but transferred to [place] in 11/[address] Barrios retired. To review,she presented initially in 2009. At the start, she showed a prolonged period of slow progression but with persistent fatigue. Eventually, treatment was initiated with bendamustine and rituximab in Apr 2014. She tolerated 3 cycles but stopped the components of this regimen entirely because of persistent abdominal pain and nausea. Got 1 more round of rituximab after 3 cycles ofBR.No underlying cause of the pain and nauseahas beendiscovered, but these symptoms have persisted throughout her course of illness. She achieved a complete remission, but persisted with fatigue. She showed further disease progression in December of 2015. She again tolerated 3 cycles of bendamustine, rituximab (cycles were at 6 weeks this time instead of 4 weeks in effort to improve tolerability), but again stopped early because of persistent abdominal symptoms. Issue with bendamustine was thatis was also causing her tohave cramping in arm from fingers to shoulder. Also had an intense burning from it throughout entire arm to shoulder, so infusion had to be stoppedfor 30 minutes and then switched to the other arm to finish.Additional IV steroids was givento help.Further progression was noted in December of 2016. She started obinutuzumab, tolerating 4 of 5 planned treatments, but again interrupting therapy because of gastrointestinal symptoms. She reports also had effect on heart rate and blood pressure. Infusion time slowed and that helped with heart issues. It was stopped before last infusion because was hospitalized for 7 days in [place] for acute problem with hips and other C-T-L spine problems, which was thought to be contributed to by obinutuzumab. She was then started on venetoclaxon January 29, 2018, achieving a complete remission wit h normalization of her peripheral blood counts and tolerating a reduced dose of 200 mg p.o. daily. Again, her fatigue was not improved and she continued to have intermittent abdominal symptoms withright upper costal margin pain and frequent episodes of nausea, vomiting. She has been blind in the left eye from . She has Sjogren's syndrome with dry mouth and dysphagia and ankylosing spondylitis with low back pain. She has beta thalassemia trait with chronic anemia. She has recurrent episodes of tinea of her right foot. She has declined both flu vaccination and COVID-19 vaccination, worried about her tolerance for these vaccines. She has persistent dyspnea on exertion. Has had an abnormal dobutamine echo and continues under consideration for a heart catheterization study. Following her last visit here in February of 2021, she developed a left tear duct infection, requiring repeat tear duct drainage. However, in March of 2021, she then experienced onset of purulent drainage from the right eye. An attempt at obtaining a bacteriological specimen from the right eye with a needle puncture was followed by marked erythema and swelling requiring subsequent surgical drainage of the right tear duct. At that time, she was treated with Augmentin, however, developed prolonged diarrhea. She then experienced fever, head and neck pain, was assessed at the Emergency Room at [facility], admitted with sepsis with methicillin- resistant Staph aureus inthe blood. COVID testing was negative at that time. Because of the severity of her symptoms, meningitis was considered. An LP did not document active meningitis. However, she was then treatedon multiple courses of antibiotics as if she had meningitis because of severity of her headaches. At that time, venetoclax was stopped with the last dose being given on April 15, 2021. She has had persistent neck pain in the interval. This precluded her traveling and she canceled her appointment here until she improved. On July 06he was again reassessed in the ER at [facility]. She went on to have trigger point injections with lidocaine and Toradol in the left side of the neck. More recently, she had a scheduled colonoscopy, which has been planned for some time. However, she rescheduled this because of a 2-day episode of diarrhea and vomiting. She has had recent amoxicillin finishing 2 weeks ago. She has noted increased fatigue with frequent naps. She continues to have dyspnea on stairs with episodes of chest pain. No recurrence of her urinarytract infection. The right foot tinea persists. She has also had left knee pain and effusion and has had a recent injection in the left knee. She has been found to have a cyst at the left wristand left 3rd finger and palm of the left hand. She notably has history offollicular variant papillary thyroid cancer, status post total thyroidectomy in 2002 followed by radioactive iodine ablation in November 2002. She takesdaily synthroid for thyroid hormone replacement. Also has history of DVT/PE. As previously noted,had PET/CT on 01/30/22 that showed multiple sites of lymphadenopathy increased in size from 02/2021 with slight metabolic activity, Deauville 2-3, consistent with recurrent CLL.Overall, there was no PET evidence for large cell transformation. On 02/21/22 underwent EUS locally. This showed: abnormal echogenicity in the visualized portion of the liver; this area was hyperechoic. This was thought to be due to fatty infiltration. There was one enlarged lymph node visualized in the aziza hepatis region. It measured 23 mm by 30 mm in maximal cross-sectional diameter. The node was irregular, hypoechoic and heterogenous and had poorly definedmargins. FNA was done. There was also one enlarged lymph node in the celiac 24 mm in diameter. FNA showed atypical lymphocytes compatible with SLL. There was no sign of significant endosonographic abnormality in the entire pancreas. At 10/10/22visit, venetoclax decreased from 200 mg daily to 200 mg alternating with 100 mg daily. At visit in 12/26/22, discussed additional of rituximab to therapy. Had also had discussion surrounding BTK inhibitors. Last visit wason 01/2023. Has not been able to make physical visits due to comorbidities. Has been following with Dr. Nuñez locally. CLL FISH studies returned positive for 11q (and 13q) in ~ 50% of nuclei. Subsequently, received [address] Nuñez - did not tolerate overall well. Started on calquence 100 mg daily around 09/04/23. Today reports even on once daily calquence, concerned about side effects. This has included N/V/D, HAs, body pains, joint pains, spleen and liver pain, constant indigestion. + fatigue. Currently wearing heart monitor. Recent bacterial infections of eyes. Lost 20 lbs, with 17 of those in first 3 months. Current weight is 138 lbs. Reports had growth in back of head excised - reports path showed SLL - she will provide me with path report. Working on thyroid meds. Has been getting regular blood work (~ q2 weeks). On 02/12/24 WBC was 146 (up from 7-15 in 01/2023). Neut 6.25.Hb 8.1 (stable). Plt 150 (improved). LDH normal at 209. She has been suggest to increase calquence to bid but has declined due to concern for side effects. Review of Systems As above. Physical Exam On video, alert, pleasant, NAD Assessment/Plan 1.CLL (chronic lymphocytic leukemia) ASSESSMENT: 1.Chronic lymphocytic leukemia/small lymphocytic lymphoma,hadshowed signs of early progression off venetoclax with an increase in lymphocyte count, appearance of axillary node, and increase in fatigue. PET/CT done on 01/30/22 showed no radiographic evidence of large cell transformation. EUS with bx of aziza hepatis lymph node showed SLL.Had been on venetoclax 200 mg daily (has not beenable to tolerate doses above this) and most recently since t 200 mg alternating with [address] on 12/25/22 showed overall progression of adenopathy. ALC has been steadily increasing; latest increase has been from 3.43 to 5.36. CLL FISH studies in 01/2023 showedpositive for 11q (and 13q) in ~ 50% of nuclei. 2.Chronic dacryocystitis. 3.Beta thalassemia trait. 4.Sjogren syndrome. 5.Ankylosing spondylitis. 6. Iron deficiency, with previousferritin 14.5 and iron sat 16%. Most recently improved to 21 and 21%, respectively. PLAN: Given overall worsening labs and CT findings, in 01/2023 we continued to discuss that it would be best to change/add therapies. Rituximab (given previous difficultytolerating obinutuzumab) would be reasonable to add to venetoclax (MURANO trial) with rituximab q 28 days X 6. She was only able to receive [address] Savannah lyons due to intolerance. Has been on calquence 100 mg daily since end of August 2023 (and venetoclax stopped - previous dosing was 200 mg alternating with 100 mg daily) and has declined twice daily dosing due to concern for adverse effects as detailed above. She has notably had significant mobilization of WBC/ALC. At this juncture, due to concern for intolerance to calquence, she would like to try brukinsa. We can initially do 80 mg daily dosing and then hopefully increase eventually to full dose of 160 mg BID. Will send for prior auth and likely Prescription Assistance Program. Shehas previouslyhad someconcern about cardiac side effects with BTK inhibitors. Of note, she does follow closely with cardiology in [facility]. She is getting labs q2 weeks. Can also continue to monitor iron studies. She previously received 4 iron infusions. Follow-up in 04/2024 via telehealth. Keyanna Mcfarlane MD Problem List/Past Medical History Ongoing Abdominal pain Angina Anklosing spondylitis Beta thalassemia Blurry vision, left eye CARPAL TUNNEL SYNDROME Cellulitis Cervical lymphadenopathy Cholesteatoma Chronic dacryocystitis Chronic sinusitis CLL (chronic lymphocytic leukemia) Cluster headaches Coloboma of eye Concussion with no loss of consciousness Constipation Cyst (solitary) of breast Dacrocystitis Degenerative joint disease of cervical and lumbar spine Diarrhea DVT (deep venous thrombosis) Dyslipidemia Family history of skin cancer Fibromyalgia Flu-like symptoms Fluid retention GERD (gastroesophageal reflux disease) Glaucoma Heart murmur Hypertriglyceridemia Hypokalemia Hypothyroidism IBS (irritable bowel syndrome) Immunosuppressed status Influenza A Malignant lymphoma - small lymphocytic Mass of left eye Migraines MRSA carrier Myofascial pain Nerve damage Osteoarthritis Papillary thyroid carcinoma Polyneuropathy Radiculopathy Right upper quadrant pain ROSACEA Sjogren's disease Systemic inflammatory response syndrome Tachycardia Tinea Trigeminal neuralgia VERTIGO Weight disorder Resolved Acute diarrhea Cholelithiasis Chronic colitis Elva Lim virus infection GI bleed Hypoglycemia Leukemia PE (pulmonary embolism) Pneumonia Reflex sympathetic dystrophy Rib fractures Sinus infection h./o THRUSH Procedure/Surgical History MRI thoracic spine wo/w con| Service Date: 2Dilation of lacrimal punctum with irrigation| Service Date: 07/09/2019Chest x-ray| Service Date: 06/15/2019CXR - Chest X-ray| Service Date: 06/04/2018CT of abdomen and pelvis| Service Date: 11/25/2017Upper GI endoscopy| Service Date: 11/20/2017Fiberoptic colonoscopy with biopsy (procedure)| Service Date: 11/20/2017Esophagogastroduodenoscopy (procedure)| Service Date: 11/20/2017MRI of head| Service Date: 09/04/2017X-ray of rib| Service Date: 08/19/2017Ultrasound scan of thyroid| Service Date: 07/22/2017HipX-ray| Service Date: 05/20/2017Doppler| Service Date: 05/19/2017CT of lumbar spine| Service Date: 05/19/2017CT of lumbar spine| Service Date: 05/19/2017Mammogram| Service Date: 12/11/2016Date of last PAP test| Service Date: 12/10/2016Pelvis X-ray| Service Date: 09/13/2016X-ray of bone of hip| Service Date: 09/13/2016X-ray of lumbosacral spine| Service Date: 09/13/2016Chest x-ray| Service Date: 01/12/2016MRI of cervical spine| Service Date: 01/05/2016MRI of lumbar spine| Service Date: 01/05/2016Date of last PAP test| Service Date: 12/07/2015Mammogram| Serv ice Date: 11/29/2015Abnormal brain MRI| Service Date: 07/05/2015Upper GI endoscopy| Service Date: 12/22/2014MRI of ankle| Service Date: 12/14/2014Procedure| Service Date: 07/07/2014Sinuses X-ray| Service Date: 06/15/2014Mammogram| Service Date: 02/28/2014Surgery right eye| Service Date: 01/17/2014Colonoscopy and biopsy of colon| Service Date: 10/15/2013Punch biopsy of skin| Service Date: 08/10/2013Colonoscopy| Service Date: 05/14/2013Colonoscopy and biopsy of colon| Service Date: 05/14/2013iopsy of breast| Service Date: 03/17/2012CEIOL - Cataract extraction and insertion of intraocular lens/BE| Service Date: 2009Cardiovascular stress test using thedobutamine stress test protocol| Service Date: 06/22/2008HysterectomyThyroidectomyCholecyst ectomyShave biopsylaser eye surgeryAngular closureBone marrow biopsyCortisone acetate 50mg/mL injectiontibial tubal transferesophageal dilitationOral surgeryTonsillectomy with adenoidectomyAnal sphincterotomyExteriorization of pilonidal cyst or sinusRhinoplastyS/P knee surgerySub mandibular ymph nodes removedTumor of ear, nose and throatColonoscopyEndoscopy of GI tractRAI - Radioactive iodine therapyERCP - 12/11-13cholangiopancreatography -12/11/2012IrrigationLPI - Laser peripheral iridotomy/BE Medications acalabrutinib(acalabrutinib 100 mg oral tablet), 100 mg= 1 tab, PO, q12h, 5 refills acetaminophen-codeine(Tylenol with Codeine #3 oral tablet), 1 tab, PO, q6h, PRN acyclovir(acyclovir 400 mg oral tablet), 400 mg= 1 tab, PO, tid, 3 refills Al hydroxide/Mg hydroxide/simethicone(Mylanta), See Instructions APAP/butalbital/caffeine(Fioricet oral tablet), 2 tab, PO, q4h betamethasone topical(betamethasone dipropionate 0.05% topical ointment), 1 appl, topical, bid, 3 refills cetirizine(Zyrtec 10 mg oral tablet), 10 mg= 1 tab, PO, Daily clobetasol topical(clobetasol 0.05% topical ointment), 1 appl, topical, Daily, 3 refills codeine(codeine sulfate 30 mg oral tablet), 30 mg= 1 tab, PO, q4h, PRN cyclobenzaprine(Flexeril 10 mg oral tablet), 10 mg= 1 tab, PO, tid diclofenac topical(Voltaren 1% topical gel), 1 appl, topical, qid, PRN diphenhydrAMINE(Benadryl), 1 tab, PO, Daily, PRN econazole topical(Econazole Nitrate 1% topical cream), 1 appl, topical, bid, 3 refills famotidine(Pepcid 20 mg oral tablet), 20 mg= 1 tab, PO, bid, PRN fremanezumab(Ajovy 225 mg/1.5 mL subcutaneous solution), 225 mg, subQ, qmonth (30 days) furosemide, 40 mg guaiFENesin(Mucinex), 400 mg, q12h ketorolac(Toradol), 10 mg, PO, tid ketorolac ophthalmic(Acular), 1 drop, both eyes, qid loperamide(Imodium A-D), 2 mg, PO, q4h, PRN Lqhxxa-nhselhozb-ogmopwoiebxgljh(Magic Swizzle oral soln (Ktflvf-tqulvngzj-rgkwfhwopmygxkn)), 15 mL, swish + spit, As indicated, 2 refills meclizine(meclizine 25 mg oral tablet), 25 mg= 1 tab, PO, qid metoprolol(metoprolol succinate 25 mg oral tablet, extended release), 25 mg= 1 tab metoprolol(Toprol-XL 50 mg oral tablet, extended release), PO, bid metoprolol(metoprolol tartrate), 50 mg, PO, tid morphine(MS Contin 30 mg oral tablet, extended release), 30 mg= 1 tab, PO, q12h moxifloxacin ophthalmic(Vigamox 0.5% ophthalmic solution), 1 drop, both eyes, qid, PRN nabumetone(Relafen 750 mg oral tablet), 750 mg= 1 tab, PO, bid ocular lubricant(Refresh), See Instructions ofloxacin ophthalmic(ofloxacin ophthalmic 0.3% solution), 1 drop, both eyes, qid olopatadine ophthalmic(Patanol), 1 drop, both eyes, bid olopatadine ophthalmic(Patanol 0.1% ophthalmic solution), 1 drop, both eyes, bid ondansetron(Zofran 8 mg oral tablet), 8 mg, PO, q8h, PRN, 3 refills oxyCODONE(oxyCODONE 10 mg oral tablet), 10 mg= 1 tab, PO, q6h, PRN pantoprazole(Protonix), 40 mg, PO, Daily phenazopyridine(Pyridium 200 mg oral tablet), 200 mg= 1 tab, PO, tid, PRN pilocarpine(Salagen 5 mg oral tablet), 5 mg= 1 tab, PO, qid potassium chloride, 10 mEq, PO prednisoLONE ophthalmic(Pred Forte 1% ophthalmic suspension), 1 drop, both eyes, tid predniSONE(predniSONE 5 mg oral tablet) promethazine(promethazine 25 mg oral tablet), 25 mg= 1 tab, PO, q4h, PRN pseudoephedrine(Sudafed), PO silver sulfADIAZINE topical(SSD 1% topical cream), See Instructions, 3 refills sodium chloride nasal(Afrin Saline nasal spray), bid, PRN SUMAtriptan(Imitrex 100 mg oral tablet), 100 mg= 1 tab, PO, ONCE, PRN timolol ophthalmic(Istalol long-acting, 0.5% ophthalmic solution), 1 drop, both eyes, bid triamcinolone nasal(Nasacort AQ 55 mcg/inh nasal spray), 1 spray, each nostril, ac and hs triamcinolone topical(triamcinolone 0.1% topical cream), 1 appl, topical, bid, 3 refills venetoclax(Venclexta 100 mg oral tablet), 200 mg= 2 tab, PO, Daily, 5 refills venetoclax(Venclexta 100 mg oral tablet), See Instructions zolpidem(Ambien 10 mg oral tablet), 10 mg= 1 tab, PO, qhs Allergies Adhesive bandagerash, welts, swelling Allergy Not found in Searchcertain perfumes lotions , cognos lead air sprays with 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, Ivory Soap BactrimRash Bee stingsunknown Bentylopen areas on buttocks, Rash Compazinesevere muscle contractions Lamictalrash and welts Lotemaxpain, irritation Lyricaswelling in hands and feet Neosporinskin rash PABAskin rash Polysporinskin rash Tiganmoderate/severe muscle contractions Topamaxrash Trace Metalsskin irritation Xibromeyelid swelling and swelling of skin around eyes aspirinbruising bacitracin/diperodin/neomycin/polymyxin B topical ointmentskin rash doxycycline ibuprofenbrusining mupirocin topical tetracyclinehives and rash woolSkin rash and Hives Social History Smoking Status Never smoked cigarettes Alcohol - Denies Alcohol Use Employment/School Status:Unemployed Exercise - Does not exercise Home/Environment Lives with:Spouse Substance Abuse - Denies Substance Abuse Tobacco - Denies Tobacco Use Family History Asthma: Son. [place] palsy: Sister. Breast cancer: Maternal Aunt, Maternal Aunt, Unknown and Unknown.Negative: Mother, Father, Sister and Brother. Breast cancer: Maternal Aunt. Cancer: Maternal Aunt, Maternal Aunt, Maternal Uncle, Unknown and Unknown. Cancer of colon: Maternal Uncle, Unknown and Unknown. Cancer of ovary: Unknown and Unknown. Cancer of stomach: Maternal Uncle. Cervical cancer: Unknown. Colon cancer..: MGM and Maternal Aunt. Diabetes: Father, MGM and PGM. High Blood Pressure: Father, MGM and PGM. Hyperlipidemia: Mother. Irregular heart beat: Father. Irritable bowel syndrome: Mother. Liver cancer: Maternal Aunt, Maternal Aunt, Unknown and Unknown. MRSA infection: Negative: Mother, Father, Sister and Brother. Melanoma in situ of skin: Father. Osteoporosis: Mother. Parkinson disease: Maternal Aunt. Skin cancer: Father. Thalassemia: Sister and Son. Health Status Family Member(s) Immunizations Vaccine Date Status influenza virus vaccine, inactivated - Not Given Comments : Patient Refuses tetanus toxoids-diphtheria, Td (Adult) 11/16/2003 Recorded Recommendations Health Maintenance Pending(in the next year) OverDue Breast Cancer Screening due12/12/18and every 731day Adult Influenza Vaccine due10/05/23and every 1year Body Mass Index due01/17/24and every 366day Due Adult COVID-19 Vaccination due02/25/24Unknown Frequency Adult Social Determinants of Health Screening due02/25/24Unknown Frequency Adult Tdap/Td Vaccine due02/25/24Unknown Frequency Medicare Annual Wellness Visit due02/25/24and every 1year Osteoporosis Screening due02/25/24One-time only Pneumococcal Vaccine Older Adults due02/25/24One-time only Shingles Vaccine due02/25/24One-time only Satisfied(in the past 1 year) There are no satisfied recommendations within the defined date range Diagnostic Results (01/14/2022 15:[address] Neck Soft Tissue w/ Contrast) FINDINGS: Suprahyoid and Infrahyoid neck: [Oral cavity, oropharynx, parapharyngeal, retropharyngeal are unremarkable.][Hypopharynx, supraglottis, glottis and infraglottis are unremarkable.] Salivary Glands: [The parotid and submandibular glands are unremarkable.] Lymph nodes: [There is small scattered level I and level II lymphadenopathy seen, these are presumably reactive lymph nodes.] Vascular structures: [Unremarkable] Thyroid gland: [Again seen are changes of total thyroidectomy. Stable 2 to 3 mm hyperdense nodule is seen left of the trachea (image 47/58), not significantly changes compared to the prior CT scan dated 02/14/2021..] Paranasal sinuses: [The visualized paranasal sinuses are well aerated and unremarkable. 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 Subtle depression is also noted of the insertion of right optic nerve ? coloboma Osseous structures: [Again seen changes of bony fusion at C5-C6.] Lung apices: [The visualized lung apices are unremarkable] IMPRESSION: 1. No evidence of lymphadenopathy. 2. Stable coloboma [1] (01/14/2022 15:[address] Abdomen and Pelvis w/ Contrast) FINDINGS: CHEST Pleura and Lungs: Lungs are clear. Central airways: Patent. Lymph nodes: There is no mediastinal, carinal or hilar adenopathy. There has been interval progression and axillary lymphadenopathy bilaterally. For example, there is a new pathologically enlarged right axillary lymph node on axial image 15 measuring up to 1.4 x 2.4 cm, previously subcentimeter in size. In addition, left axillary node measures up to 1.4 x 2.8 cm. Thyroid and Mediastinum: Thyroid gland is not visualized. There are no mediastinal masses. Heart and Great vessels: Unremarkable for technique. ABDOMEN Liver, Gallbladder \\T\\ bile ducts: Absent gallbladder. Mild biliary ductal dilation which is unchanged and likely on a postoperative basis. Pancreas: Atrophic. Spleen: Unremarkable for technique. Adrenals: Unremarkable for technique. Kidneys, collecting system and ureters: Unremarkable for technique. Retroperitoneum, lymph nodes, and vessels: Borderline enlarged portacaval lymph nodes are now enlarged, the largest of which measures up to 1.8 cm on short axis. Abutting the pancreatic head is a lobulated lesion measuring up to 2.4 x 3.2 cm, which reflects interval change. On axial imaging it is unclear if this is contiguous with the liver on coronal imaging this appears separate and stephen in nature. Bowel \\T\\ Mesentery: No obstruction. No pneumoperitoneum. Surgical clip anterior left lower quadrant. Unchanged circumscribed filling defects within the duodenum. PELVIS Bladder: Unremarkable for technique. Reproductive organs: Absent uterus. Small low-density nodule in the left adnexa measuring up to 1.5cm, unchanged. Extraperitoneal, lymph nodes, vessels: Stable in appearance. OSSEOUS AND BODY WALL Degenerative changes of the hips bilaterally. Multilevel degenerative changes of the thoracolumbar spine. IMPRESSION: 1. Lymphadenopathy, worrisome for recurrent disease. 2. Unchanged circumscribed filling defects within the duodenum, of uncertain etiology. Further characterization may be accomplished via endoscopic assessment. PET/CT done on 01/30/22 showed: FINDINGS: HEAD/FACE: No abnormal uptake. Physiologic extraocular muscle and salivary gland uptake. NECK: No abnormal uptake. Status post total thyroidectomy. CHEST: Bilateral axillary lymphadenopathy some with uptake just above the blood but below that ofthe liver. Nodes are overall unchanged in size from most recent CT 01/14/2022, however new from 02/2021. Overall, Deauville 2-3. LUNGS: No abnormal uptake. Limited evaluation of the lung parenchyma secondary to respiratory motion. PLEURA/PERICARDIUM: No abnormal uptake. There are no significant findings on the localizing low-dose CT. HEART, CORONARY CALCIFICATIONS: There is complete suppression of myocardial FDG uptake, signifying excellent preparation for this test by carbohydrate- restricted diet. Mild coronary calcifications (afew flecks of discontinuous calcification involving less than 1/3rd of the coronary arteries). THORACIC NODES: No abnormal uptake. No mediastinal lymphadenopathy. HEPATOBILIARY: No abnormal uptake. Cholecystectomy. Peripancreatic/periportal lymphadenopathy with no significant uptake, the largest lymph node measuring up to 1.9 cm, similar to most recent CT.Uptake within periportal lymph nodes is below that of the adjacent blood pool. SPLEEN: No abnormal uptake. Mild splenomegaly measuring 13.6 cm in AP dimension, unchanged dating back to at least 2018. PANCREAS: No abnormal uptake. Peripancreatic lymphadenopathy as above. ADRENAL GLANDS: No abnormal uptake. There are no significant findings on the localizing low-dose CT. KIDNEYS/URETERS/BLADDER: No abnormal uptake. There are no significant findings on the localizing low-dose CT. ABDOMINOPELVIC NODES: Periaortic, common iliac, and external iliac lymphadenopathy. Index nodes: Right external iliac lymph node axial image 248/284 measuring 2.1 cm in short axis. Para-aortic lymphadenopathy axial image 205/284 measuring 1.1 cm in short axis. Uptake within lymphadenopathy is at or below the level of the blood pool. Nodes are new or enlarged when compared to CT 02/2021. BOWEL/PERITONEUM/MESENTERY: No abnormal uptake. Previous duodenal filling defect is not well visualized on today's exam secondary to lack of oral contrast. Retained oral contrast visualized throughout the colon. PELVIC ORGANS: No abnormal uptake. There are no significant findings on the localizing low-doseCT. BONES/SOFT TISSUES: No abnormal uptake. Multilevel degenerative changes of the spine. OTHER FINDINGS: No abnormal uptake. There are no significant findings on the localizing low-dose CT. IMPRESSION: Multiple sites of lymphadenopathy increased in size from 02/2021 with slight metabolic activity, Deauville 2-3 (act knowledge that this scale designed for lymphoma and may not classically apply to CLL), consistent with recurrent CLL. (12/25/2022 11:[address] Neck Soft Tissue w/ Contrast) FINDINGS: Suprahyoid neck: No abnormal mucosal enhancement or lesion. Infrahyoid neck: No abnormal mucosal enhancement or lesion. Salivary glands: Atrophied parotid glands bilaterally. Lymph nodes: Enlarged right level 1B, bilateral level 2, 3 and 5 lymph nodes measuring up to 12 mm in short axis; this is progressed from 01/14/2022. Vascular structures: Retropharyngeal course of the cervical segment of the right internal carotid artery; otherwise, unremarkable. Thyroid gland: Thyroidectomy. Paranasal sinuses: Unremarkable. Likely related to Osseous structures: No acute bony abnormality. Visualized orbits/brain: Bilateral lens replacements. Lung apices: No pneumothorax or pleural effusion; see dedicated CT chest dictated same day 12/25/2022. IMPRESSION: Diffuse cervical lymphadenopathy new/increased compared to 01/14/2022 likely secondary to CLL progression. [2] (12/25/2022 11:[address] Abdomen and Pelvis w/ Contrast) CHEST Pleura and Lungs: Unchanged faint spiculated 4 mm focus within the dorsal left lower lobe. This is seen dating back to 02/06/2015. Central airways: Patent. Lymph nodes: Worsening axillary and supraclavicular lymphadenopathy bilaterally. For example, the lymph node previously measuring up to 2.8 x 1.4 cm now measures up to 3.0 x 1.8 cm. Thyroid and Mediastinum: Unremarkable for technique. Heart and Great vessels: Unremarkable for technique. ABDOMEN Liver, Gallbladder \\T\\ bile ducts: Persistent intrahepatic and extrahepatic biliary ductal dilation. The indistinct subcentimeter hypoattenuating subcapsular focus within the right hepatic lobe laterally is unchanged, too small to characterize. Absent gallbladder. Pancreas: Unremarkable for technique. Spleen: Unremarkable for technique. Adrenals: Unremarkable for technique. Kidneys, collecting system and ureters: Unremarkable for technique. Retroperitoneum, lymph nodes, and vessels: Scant atherosclerotic calcification. Worsening lymphadenopathy. For example the peripancreatic portacaval lymph node previously measuring 2.4 x 3.2 cm now measures 2.9 x 4.0 cm. Portacaval node now measures up to 4.5 x 2.4 cm, previously measuring up to 3.9 x 1.6 cm. Central mesenteric vessels are patent noting limitations of exam technique. Bowel \\T\\ Mesentery: No obstruction. No pneumoperitoneum. Mild colonic fecal loading. PELVIS Bladder: Unremarkable for technique. Reproductive organs: Absent uterus. Unchanged low-density structure in the left hemipelvis, which may reflect atrophic ovary or ovarian remnant. Extraperitoneal, lymph nodes, vessels: Interval progression in pelvic lymphadenopathy. For example,the dominant left external iliac lymph node now measuring 2.5 x 4.0 cm previously measured up to 1.9 x 2.5 cm. There are multiple scattered shotty lymph nodes throughout the pelvis, with worsening per iaortic lymphadenopathy. OSSEOUS AND BODY WALL Multilevel degenerative changes of the thoracolumbar spine. Mild degenerative changes of the hips bilaterally. IMPRESSION: Findings worrisome for interval progression in disease with worsening thoracic and abdominopelvic lymphadenopathy. [3] [1]Office Visit Note; MD Mcfarlane [facility] 01/16/2023 17:00 EDT Electronic Signature on File Electronically Reviewed/Signed by: Crys Mcfarlane MD Author Signature Dt/Tm:02/25/2024 10:56 AM Division of Hematology Oncology NS * MD Mcfarlane [facility]: PERFORM Event Display: Hematology/Oncology Outpt Note Authored Date: [id number] Also had discussed recent approval (in last 1 year)of pirtobrutinib. Keyanna Mcfarlane MD Electronic Signature on File CC: Valeria Nuñez MD [facility] [address] [facility] [id number] * Electronically Reviewed/Signed by: Crys Mcfarlane MD Author Signature Dt/Tm:02/25/2024 11:02 AM Division of Hematology Oncology NS Patient Care team information Care Team Personnel Name: MARIA INES Cortez Tara Position: Nurse Pract - Family Med Member Role: Lifetime Relationship Address: [address] [place] [id number] Name: MD Tyler, Vish Ward Position: Physician - Endocrinology Member Role: Lifetime Relationship Address: [address] [place] [id number] [place] Name: Vijay Callejas Erin Position: Pharmacist Member Role: Pharmacy - Lifetime Name: Sapphire Hahn RPh, William Position: Pharmacist Member Role: Pharmacy - Lifetime Name: MD Denis, Leland Mcfadden Position: Physician - Hem/Onc Member Role: Lifetime Relationship Address: [address] [place] [address] [place] Name: Vijay Cardona Annette Position: Pharmacist Member Role: Pharmacy - Lifetime Care Team Related Persons Name: RENEE ARCOS Name: JAC KIM III Name: JAC KIM III
[2024-03-25] MEDS: MECLIZINE HCL 25 MG TAB PO SCH (19:53)
[2024-03-25] MEDS: oxyCODONE HCL IR 5 MG TAB (IMMEDIATE RELEASE) PO SCH (19:53)
[2024-03-25] MEDS: PILOCARPINE HCL 5 MG TABLET PO SCH (19:54)
[2024-03-25] MEDS: MoRPHine SULFATE CR 15 MG TABCR PO SCH (20:23)
[2024-03-25] MEDS: SODIUM CHLORIDE 0.65% NA SOLN 45 ML (OCEAN) PRN (20:24)
[2024-03-25] MEDS: ENOXAPARIN INJ 40 MG/0.4 ML SYR SQ SCH (20:24)
[2024-03-25] MEDS: guaiFENesin 600 MG TABCR PO PRN (20:25)
[2024-03-25] MEDS: PSEUDOEPHEDRINE HCL 30 MG TAB PO PRN (20:25)
[2024-03-25] MEDS: NABUMETONE 500 MG TABLET PO SCH (20:25)
[2024-03-25] MEDS: KETOROLAC 0.5% OP SOLN 5 ML BTL OPB SCH (20:26)
[2024-03-25] MEDS: OFLOXACIN 0.3% 75 DROPS/5 ML BTL OPB SCH (20:27)
[2024-03-25] MEDS: TIMOLOL MALEATE 0.5% OP SOLN 5 ML BTL OP SCH (20:27)
[2024-03-25] MEDS: CYCLOBENZAPRINE HCL 10 MG TAB PO SCH (20:28)
[2024-03-25] MEDS: ONDANSETRON INJ 2 MG/ML 2 ML VIAL IV PRN (20:49)
[2024-03-25] MEDS: FAMOTIDINE 20 MG TAB PO PRN (20:49)
[2024-03-25] MEDS ORDERED: Nursing to Pharmacy Communication SCH (22:45)
[2024-03-25] MEDS: FLUTICASONE PROPIONATE NA SPR 16 GM BTL PRN (22:55)
[2024-03-25] MEDS: CEFEPIME 2000MG 2,000 MG/20 ML SYR IV SCH (22:55)
[2024-03-26] MEDS: PSEUDOEPHEDRINE HCL 30 MG TAB PO PRN (00:07)
[2024-03-26] MEDS: OXYMETAZOLINE 0.05% 30 ML BTL NAE ONE (02:26)
[2024-03-26] MEDS: BUTALBITAL/ACETAMIN/CAFFEINE TAB PO PRN (02:32)
--- NOTE | 2024-03-26 02:45 | Electrocardiogram Report ---
Test Reason : Blood Pressure : */* mmHG Vent. Rate : 69 BPM Atrial Rate : 69 BPM P-R Int : 174 ms QRS Dur : 84 ms QT Int : 388 ms P-R-T Axes : 29 -6 23 degrees QTcB Int : 415 ms Normal sinus rhythm Moderate voltage criteria for LVH, may be normal variant ( R in aVL , Trent product ) Borderline ECG When compared with ECG of 25-Mar-2024 10:25, No significant change was found Confirmed by Abhijit Garnica ([id number]) on 03/26/2024 2:44:50 AM Referred By: Valeria Nuñez Confirmed By: Abhijit Garnica
--- NOTE | 2024-03-26 02:45 | Electrocardiogram Report ---
Test Reason : Blood Pressure : */* mmHG Vent. Rate : 71 BPM Atrial Rate : 71 BPM P-R Int : 156 ms QRS Dur : 86 ms QT Int : 386 ms P-R-T Axes : 5 -10 11 degrees QTcB Int : 419 ms Normal sinus rhythm Minimal voltage criteria for LVH, may be normal variant ( R in aVL ) Borderline ECG When compared with ECG of 15-Jan-2024 15:23, Nonspecific T wave abnormality no longer evident in Anterior leads Confirmed by Abhijit Garnica ([id number]) on 03/26/2024 2:44:32 AM Referred By: Valeria Nuñez Confirmed By: Abhijit Garnica
[2024-03-26] MEDS: LEVOTHYROXINE SODIUM 175 MCG TABLET PO SCH (05:47)
[2024-03-26 07:35] LABS: Hematocrit (blood only) 26.9 % (37.0-47.0); Hemoglobin 8.1 g/dl (12.0-16.0); Mean Corpuscular Hemoglobin 20.6 pg (25.0-34.0); Mean Corpuscular Hgb Conc 30.1 g/dL (32.0-36.0); Mean Corpuscular Volume 68.3 fL (80.0-100.0); Mean Platelet Volume 9.3 fL (9.4-12.4); Platelet Count 165 K/uL (130-400); RDW Coefficient of Variation 18.7 % (11.5-14.5); RDW Standard Deviation 42.3 fL (36.4-46.3); Red Blood Count 3.94 M/uL (4.20-5.40); White Blood Count 229.86 K/ul (4.8-10.8)
[2024-03-26 07:42] LABS: BUN Creatinine Ratio 11.9 (10-20); Creatinine Clr Calc Pharmacy 54.9 ml/min; Potassium 5.6 mmol/L (3.5-5.1)
[2024-03-26 07:57] VITALS: RESP 18
[2024-03-26 08:40] LABS: Basophils # (auto) 1.78 K/uL (0.00-0.20); Basophils % (auto) 0.8 %; Hypochromasia Present; Immature Granulocytes # (auto) 0.36 K/uL (0.01-0.20); Immature Granulocytes % (auto) 0.2 %; Lymphocytes # (auto) 206.66 K/uL (1.20-3.40); Lymphocytes % (auto) 89.9 %; Microcytosis Present; Monocytes % (auto) 7.5 %; Neutrophils # (auto) 3.76 K/uL (1.40-6.50); Neutrophils % (auto) 1.6 %; Ovalocytes 1+; Polychromasia 1+; Rouleaux 1+; Smudge Cells Present; Tear Drop Cells 1+
[2024-03-26] MEDS: CETIRIZINE HCL 10 MG TABLET PO SCH (08:47)
[2024-03-26] MEDS: PANTOprazole 40 MG TAB PO SCH (08:48)
[2024-03-26] MEDS: METOPROLOL SUCC 50MG EXT REL TAB PO SCH (08:50)
[2024-03-26] MEDS: ACETAMINOPHEN 325 MG TAB PO PRN (08:53)
--- NOTE | 2024-03-26 09:22 | Oncology Consultation ---
Date of Consultation March 26, 2024 Assessment & Plan (1) CLL (chronic lymphocytic leukemia): (2) Hyperkalemia: Plan Patient with CLL admitted for possible bacterial sinusitis, hyperkalemia. -Hyperkalemia likely false and secondary to in vitro hemolysis due to significant lymphocytosis. Based on clinical symptoms, labs no evidence for tumor lysis syndrome. Recommend checking BMP with nonheparinized tube for accurate assessment of potassium level. -CT sinuses -May consider IVIG outpatient if she continues to have recurrent sinus infections -Continue with Brukinsa -Obtain anemia labs and give IV iron infusion if ferritin is below 50 -Outpatient follow-up upon discharge History of Present Illness Reason for Consultation: CCL + elevated K Attending Physician: Reuben Moreno DO History of Present Illness 68-year-old female with history of CLL who has received multiple lines of treatment and was most recently switched to Brukinsa about 2 weeks ago. Admitted for pseudohyperkalemia and sinusitis.Currently on IV antibiotics for possible bacterial sinusitis. Allergies Allergy/AdvReac Type Severity Reaction Status Date / Time adhesive Allergy Intermediate Skin Verified 03/25/24 16:27 irritation, welts bacitracin Allergy Intermediate Rash, Verified 03/25/24 16:27 swelling, welts bee venom protein (honey bee) Allergy Intermediate Diffuse Verified 03/25/24 16:27 hives, dyspnea bromfenac Allergy Intermediate Eyelid Verified 03/25/24 16:27 swelling, Eye drops xibrom dicyclomine Allergy Intermediate Diffuse Verified 03/25/24 16:27 rash doxycycline Allergy Intermediate Hives Verified 03/25/24 16:27 lamotrigine Allergy Intermediate Welts Verified 03/25/24 16:27 lavender (Lavandula Allergy Intermediate affects Verified 03/25/24 16:27 angustifolia) breathing loteprednol Allergy Intermediate Intense Verified 03/25/24 16:27 eye burning mupirocin Allergy Intermediate Rash Verified 03/25/24 16:27 neomycin Allergy Intermediate Rash, Verified 03/25/24 16:28 swelling, welts polymyxin B Allergy Intermediate Rash, Verified 03/25/24 16:28 swelling, welts pregabalin Allergy Intermediate Hands/feet Verified 03/25/24 16:28 swelling, mouth sores sulfamethoxazole Allergy Intermediate Rash Verified 03/25/24 16:28 tetracycline Allergy Intermediate HIVES Verified 03/25/24 16:29 topiramate Allergy Intermediate Rash Verified 03/25/24 16:28 trimethoprim Allergy Intermediate Rash Verified 03/25/24 16:28 wool Allergy Intermediate Hives Verified 03/25/24 16:28 aspirin AdvReac Intermediate Diffuse Verified 03/25/24 16:28 bruising Bleach (Sodium Hypochlorite) AdvReac Intermediate Breathing Verified 03/25/24 16:28 affected ibuprofen AdvReac Intermediate Diffuse Verified 03/25/24 16:28 bruising trimethobenzamide AdvReac Intermediate Muscle Verified 03/25/24 16:28 contraction PABA Allergy Intermediate Rash Uncoded 03/25/24 16:28 patcholi oil Allergy Intermediate Difficulty Uncoded 03/25/24 16:28 Breathing surgical latesha Allergy Intermediate Redness, Uncoded 03/25/24 16:28 infection from latesha Home Medications Medication Instructions Recorded Confirmed Type pantoprazole 40 mg tablet,delayed 40 mg PO QAM #180 tabs 12/26/18 03/25/24 History release ofloxacin 0.3 % eye drops (Ocuflox) 1 drops OPB TID 03/24/19 03/25/24 History Magic Swizzle 1 dose PO DIRECTED PRN MOUTH 04/15/21 03/25/24 History SORE FROM CHEMO cetirizine 10 mg tablet (Zyrtec) 10 mg PO QAM 04/15/21 03/25/24 History diphenhydramine HCl 25 mg capsule 25 mg PO DAILY PRN Allergy Symptoms 04/15/21 03/25/24 History (Benadryl) guaifenesin 600 mg tablet, 600 mg PO Q12H PRN Congestion 04/15/21 03/25/24 History extended release 12 hr (Mucinex) oxymetazoline 0.05 % nasal spray 2 spray intranasal UD PRN 04/15/21 03/25/24 History (Afrin (oxymetazoline)) Congestion pseudoephedrine HCl 30 mg tablet 30 mg PO DIRECTED PRN Congestion 04/15/21 03/25/24 History (Sudafed) famotidine 20 mg tablet (Pepcid AC) 20 mg PO BID PRN Heartburn 07/06/21 03/25/24 History ketorolac 0.5 % eye drops (Acular) 1 drp OPB TID 07/06/21 03/25/24 History olopatadine 0.1 % eye drops 1 drp OPB BID 07/06/21 03/25/24 History levothyroxine 175 mcg tablet 175 mcg PO DAILYBB 08/27/22 03/25/24 History (Synthroid) timolol maleate 0.5 % once daily 1 drp ophthalmic (eye) BID 11/20/22 03/25/24 History eye drops (Istalol) fremanezumab-vfrm 225 mg/1.5 mL 225 mg (1.5 mL) subcut MONTHLY 07/28/23 03/25/24 Rx subcutaneous syringe (Ajovy #1.5 mL Syringe) meclizine 25 mg tablet 25 mg PO QID 30 days #120 tabs 07/28/23 03/25/24 Rx nabumetone 750 mg tablet 750 mg PO BID #60 tabs 07/28/23 03/25/24 Rx ondansetron HCl 8 mg tablet 8 mg PO TID PRN NAUSEA/VOMITING 07/28/23 03/25/24 Rx #90 tabs promethazine 25 mg tablet 25 mg PO Q4H PRN nausea and 07/28/23 03/25/24 Rx vomiting 1 month #60 tabs carboxymethyl 0.5 %-glycerin 1 1 drp ophthalmic (eye) DIRECTED 08/20/23 03/25/24 History %-polysorb 80 0.5 %-PF eye PRN Dry Eyes dropperette (Refresh Optive Advanced (PF)) cyclobenzaprine 10 mg tablet 10 mg PO TID muscle spasms 90 days 09/03/23 03/25/24 Rx #270 tabs acyclovir 400 mg tablet 400 mg PO TID 09/17/23 03/25/24 History pilocarpine HCl 5 mg tablet 5 mg PO QID 09/17/23 03/25/24 History (Salagen (pilocarpine)) sqxtavened-hogspywvgzrpz-kivorlwo 1 tab PO TID PRN TENSION HEADACHES 01/07/24 03/25/24 Rx 50 mg-325 mg-40 mg tablet #90 tabs loperamide 2 mg capsule 2 mg PO Q6H PRN Diarrhea 01/15/24 03/25/24 History zolpidem 10 mg tablet (Ambien) 10 mg PO HS PRN Sleep 01/15/24 03/25/24 History furosemide 40 mg tablet 60 mg (1.5 x 40 mg) PO QAM PRN 02/24/24 03/25/24 Rx swelling #20 tabs metoprolol succinate 100 mg See Rx Instructions PO .COMPLEX 02/24/24 03/25/24 Rx tablet,extended release 24 hr #225 tabs metoprolol tartrate 50 mg tablet 50 mg PO TID PRN tachycardia #90 02/24/24 03/25/24 Rx tabs nitroglycerin 400 mcg/spray See Rx Instructions .Route 02/24/24 03/25/24 Rx translingual .COMPLEX #4.9 grams potassium chloride 10 mEq 20 meq (2 x 10 mEq) PO BID #360 02/24/24 03/25/24 Rx capsule,extended release caps sumatriptan succinate 100 mg 100 mg PO DAILY PRN migraine 02/24/24 03/25/24 Rx tablet (Imitrex) headache #9 tabs oxycodone 20 mg tablet 20 mg PO Q4H Breakthrough Pain #90 03/08/24 03/25/24 Rx tabs ketorolac 10 mg tablet 10 mg PO TID 7 days #21 tabs 03/09/24 03/25/24 Rx zanubrutinib 80 mg capsule 160 mg PO QAM 03/11/24 03/25/24 History (Brukinsa) morphine 30 mg tablet,extended 30 mg PO BID Pain 03/25/24 03/25/24 History release triamcinolone acetonide 55 mcg 1 spray intranasal AMPM PRN 03/25/24 03/25/24 History nasal spray aerosol (Nasacort) Allergy Symptoms amoxicillin 875 mg-potassium 1 tab PO BID 7 days #14 tabs 03/26/24 Rx clavulanate 125 mg tablet Patient History Medical History Hx of migraines Polyneuropathy Sjogren syndrome Venous insufficiency (chronic) (peripheral) Hx of thyroid cancer Fibromyalgia Edema Hx of concussion (10/2023) Chronic headaches Hyponatremia CLL (chronic lymphocytic leukemia) Ankylosing spondylitis Dyslipidemia Prediabetes Hypothyroidism Angina at rest History of atrial fibrillation Hx of atrial tachycardia Hx of supraventricular tachycardia Vertigo Brain tumor Carpal tunnel syndrome on both sides Small lymphocytic lymphoma Hx MRSA infection Maintenance chemotherapy Crutches as ambulation aid Chronic back pain Acid reflux Ulcerative colitis History of pulmonary embolus (PE) History of DVT (deep vein thrombosis) Temporomandibular joint disorder Glaucoma Thalassemia syndrome Surgical History H/O excision of mass (01/15/24) History of biopsy History of bilateral breast biopsy History of rectal sphincterotomy Status post laparotomy History of gynecologic surgery History of excision of pilonidal cyst History of knee surgery History of ERCP History of eye surgery History of wisdom tooth extraction History of root canal procedure History of tooth extraction History of esophagogastroduodenoscopy (EGD) Status post correction of deviated nasal septum (~1989) Status post nasal surgery (~1974) Status post glaucoma surgery H/O colonoscopy (2010) S/P tubal ligation History of throat surgery (2009) S/P AVERY-BSO (~1995) S/P cataract extraction Hx of cholecystectomy (~2010) History of thyroidectomy (~2002) History of tonsillectomy and adenoidectomy History of dilatation and curettage Family History Father Diabetes Hypertension Other No family history of adverse response to anesthesia Social History Smoking Status: Never smoker Second Hand Exposure: No; Do You Dip or Chew Tobacco: No; Hx Alcohol Use: No Hx Substance Use: No Preferred Language: Cuban Communication Ability: Effective Visual Impairment: No Limitations Hearing Ability: Normal Verifying Machine Operator Required: No Beliefs That Will Affect Care: None marital status: Current Living Situation: Spouse current occupational status: disabled Feels Safe at Home: Yes Safety Concerns: Feels Safe At This Time Assistive Devices: Crutches Results & Data Vital Signs (Past 12 Hours) Vital Signs Temp Pulse Pulse Resp BP BP Pulse Ox 03/26/24 07:05 37.1 C 74 18 132/67 96 03/26/24 02:18 36.6 C 77 20 134/71 100 03/25/24 23:34 36.8 C 73 18 114/68 96 03/25/24 22:07 71 O2 Del Method 03/26/24 07:05 Room Air 03/26/24 02:18 Room Air 03/25/24 23:34 Room Air 03/25/24 22:07
--- NOTE | 2024-03-26 09:46 | Medical Student Progress Note ---
Date of Service March 26, 2024 Assessment & Plan Admission and Anticipated Discharge Date Admission Date: March 25, 2024 Subjective Patient is A&Ox3. She reports that sinus congestion that began on Friday morning is especially bothering her today. She describes yellow-green discharge from her eyes causing blurry vision, a dry cough and some chest tightness and midsternal pain aggravated by breathing. Physical Exam Constitutional: tired, frail appearing woman in no acute distress Respiratory: clear to auscultation b/l Cardiovascular: RRR, no murmurs rubs or gallops. Gastrointestinal (Abdomen): tender in all 4 quadrants, + BS. splenomegaly noted. Results & Data Vital Signs (Past 12 Hours) Vital Signs Temp Pulse Pulse Resp BP BP Pulse Ox 03/26/24 07:05 37.1 C 74 18 132/67 96 03/26/24 02:18 36.6 C 77 20 134/71 100 03/25/24 23:34 36.8 C 73 18 114/68 96 03/25/24 22:07 71 O2 Del Method 03/26/24 07:05 Room Air 03/26/24 02:18 Room Air 03/25/24 23:34 Room Air 03/25/24 22:07 Resident Activity Tracking Resident Involvement: Resident Care Provided Care Provided: Adult Hospital Medicine Resident Supervision Co-Signing Physician Notes Resident Attestation I was personally present during medical student and patient encounter and independently interviewed and examined the patient and verified the rubio history and physical, reviewed labs and image studies, discussed the case with Valentin GARCIA), and agree with the above mentioned findings and care plan.
[2024-03-26 10:42] LABS: BUN Creatinine Ratio 12.8 (10-20); Calcium 8.5 mg/dl (8.6-10.3); Creatinine Clr Calc Pharmacy 59.1 ml/min; Potassium 3.7 mmol/L (3.5-5.1)
[2024-03-26] MEDS: OPTIRAY 320 100ml IV ONE (12:47)
--- NOTE | 2024-03-26 13:12 | CT Scan Report ---
CT sinus wo/w con CLINICAL HISTORY: sinus infection,cll TECHNIQUE: Multidetector axial CT images through the sinuses were obtained without and with contrast. Coronal and sagittal reformations were also obtained. Automated dose lowering techniques and/or adju stment according to patient size were utilized for this examination. CT DOSE: 1257.08 mGy.cm Comparison: Comparison is made to CT head 04/16/2021 FINDINGS: Moderate soft tissue thickening is seen in the maxillary, ethmoid, sphenoid and frontal sinuses. The orbits appear normal. Rightward nasal septum deviation. IMPRESSION: Findings compatible with sinusitis. No lymphadenopathy is seen. ACT 112: Negative or not required by law. Electronically signed by: Marquez Jonhson M.D. 03/26/2024 1:10 PM
[2024-03-26] MEDS ORDERED: SILVER SULFADIAZINE 1% CR 50 GM JAR EXT SCH (14:30)
[2024-03-26 14:41] VITALS: BP 129/70; PULSE 70; TEMP 98.1; O2SAT 97
[2024-03-26] MEDS ORDERED: AMOXICILLIN 500 MG CAP PO STA (16:30)
--- NOTE | 2024-03-26 16:37 | Discharge Summary ---
Date of Service March 26, 2024 Admission HPI Per Admitting Provider Diana is a 68-year-old female with PMH of CLL, Sjogren's syndrome, ankylosing spondylitis, thyroid cancer, PSVT, segmental and somatic dysfunction, herpes zoster, and ployneuropathy. [facility] for elevated potassium and WBC count. Patient reports that she has had a sinus infection and sore throat that started earlier in the week but got bad on Friday 03/23. She reports that she feels congested, that her ears are full, and that it hurts to breathe at times. Patient was recently started on new chemo medication (Brukinsa) 2 weeks ago, and was told that one of the side effects of this medication is URIs, and is concerned that this might of caused her symptoms. Additionally, she has been feeling off balance and having significant pain in her chest, generalized abdomen, and right hip. She takes morphine 30 mg in the morning and at night, as well as oxycodone 20 mg TID for the pain. She also rotates weekly between Toradol and nabumetone for additional pain control. Patient took her regular morning medicine today. She takes Brukinsa every morning (2 capsules). Other than Brukinsa no recent change in medications. She also recently completed a 30-day Holter monitor, as her most recent chemotherapy lead to arrhythmias and there was concern for her heart. Patient attributes her stomach pain to splenomegaly and hepatomegaly and reports that it feels like a "spasm" pain for which she has been taking Flexeril 3 times daily. She also reports having nerve studies on her right hip with Dr. Driscoll several months ago, and having significant radiculopathy to the point where she can only stand for a few minutes at a time. Patient denies smoking, tobacco use, recent alcohol use. Patient's vitals are stable at time of admission. ED course: Cefepime 2000 mg IV Calcium gluconate 1000 mg IV NSS 1000 L IV ROS: Patient endorses generalized fatigue, chills, flushing, sinus infection, sore throat, congestion, runny nose, dizziness, feeling off balance, chest pain, SOB at rest and with exertion, intermittent chest palpitations, pleuritic CP, generalized abdominal pain, back pain, increased urinary frequency, burning with urination, nausea, vomiting bile, and diarrhea. Patient denies fever, blood in the urine/stool, melena, saddle anesthesia, or loss of urinary continence. Admission Exam Per Admitting Provider General: no acute distress; pleasant affect; non-toxic appearing; cachectic; cooperative HEENT: normocephalic, atraumatic; no scleral icterus; PERRLA w/ EOMs intact; vision and hearing grossly intact Neck: supple; no lymphadenopathy; trachea midline Skin: Scabbing noted on the right shoulder; warm, dry without signs of tenting; no cyanosis; no rashes or erythema noted CV: chest wall NTP; RRR; S1/S2 normal; no murmurs/rubs/gallops; pulses intact and symmetric at radial, DP, and PT Lungs: no acute respiratory distress; symmetrical chest wall expansion; clear breath sounds across all lung montoya w/o adventitious sounds; no wheezing ABD: Soft; organomegaly appreciated in the RUQ and LUQ; TTP in all 4 quadrants; BS present; no rebound/guarding; no distention MSK: no tics or fasciculations; no edema noted in the LEs b/l, nonerythematous Neuro: A&Ox3; normal mood and affect; fluent speech; no focal deficits; sensation intact and symmetric in lower extremes bilaterally Principal Diagnosis CLL, Sinusitis Discharge Exam Constitutional WD/WN, vitals as above (non-toxic) Respiratory normal respiratory effort, lungs clear to auscultation Cardiovascular RRR, no murmur, no edema Gastrointestinal (Abdomen) Inspection/Auscultation: abdomen not distended Percussion/Palpation: + abdomen tender (in bilateral upper quadrants (patient states this is not new)) Neurologic awake Psychiatric A+Ox3, euthymic affect Discharge Data Allergies Allergy/AdvReac Type Severity Reaction Status Date / Time adhesive Allergy Intermediate Skin Verified 03/25/24 16:27 irritation, welts bacitracin Allergy Intermediate Rash, Verified 03/25/24 16:27 swelling, welts bee venom protein (honey bee) Allergy Intermediate Diffuse Verified 03/25/24 16:27 hives, dyspnea bromfenac Allergy Intermediate Eyelid Verified 03/25/24 16:27 swelling, Eye drops xibrom dicyclomine Allergy Intermediate Diffuse Verified 03/25/24 16:27 rash doxycycline Allergy Intermediate Hives Verified 03/25/24 16:27 lamotrigine Allergy Intermediate Welts Verified 03/25/24 16:27 lavender (Lavandula Allergy Intermediate affects Verified 03/25/24 16:27 angustifolia) breathing loteprednol Allergy Intermediate Intense Verified 03/25/24 16:27 eye burning mupirocin Allergy Intermediate Rash Verified 03/25/24 16:27 neomycin Allergy Intermediate Rash, Verified 03/25/24 16:28 swelling, welts polymyxin B Allergy Intermediate Rash, Verified 03/25/24 16:28 swelling, welts pregabalin Allergy Intermediate Hands/feet Verified 03/25/24 16:28 swelling, mouth sores sulfamethoxazole Allergy Intermediate Rash Verified 03/25/24 16:28 tetracycline Allergy Intermediate HIVES Verified 03/25/24 16:29 topiramate Allergy Intermediate Rash Verified 03/25/24 16:28 trimethoprim Allergy Intermediate Rash Verified 03/25/24 16:28 wool Allergy Intermediate Hives Verified 03/25/24 16:28 aspirin AdvReac Intermediate Diffuse Verified 03/25/24 16:28 bruising Bleach (Sodium Hypochlorite) AdvReac Intermediate Breathing Verified 03/25/24 16:28 affected ibuprofen AdvReac Intermediate Diffuse Verified 03/25/24 16:28 bruising trimethobenzamide AdvReac Intermediate Muscle Verified 03/25/24 16:28 contraction PABA Allergy Intermediate Rash Uncoded 03/25/24 16:28 patcholi oil Allergy Intermediate Difficulty Uncoded 03/25/24 16:28 Breathing surgical latesha Allergy Intermediate Redness, Uncoded 03/25/24 16:28 infection from latesha Consultations 03/25/24 13:59 ED Decision to Admit Stat 03/25/24 15:26 Consult Oncology Routine Ordered Studies 03/25/24 11:13 CT abd pelvis IV con only Stat 03/25/24 11:59 CT chest diagnostic w con Stat 03/26/24 10:42 CT sinus wo/w con Routine Hospital Course (1) Hyperkalemia: Patient sent in by PCP on 03/25 for elevated WBC count and K on outpatient labs K 6.8-->6.2-->8.0 on arrival, but this was found to be pseudo-hyperkalemia In vitro hemolysis due to significant lymphocytosis. Based on clinical symptoms, labs no evidence for tumor lysis syndrome. K+ when checked w/ POC testing was wnl (4.3); no potassium-lowering treatment given save for Calcium gluconate x1 in ED No EKG changes or changes in telemetry (2) CLL (chronic lymphocytic leukemia): Leukocytosis at 247.89 with a lymphocytic predominance at time of admission Started Brukinsa ~2 weeks ago, which has as a possible adverse effect an increase in circulating lymphocytes Chest/abdomen/pelvic CT are unremarkable on arrival Uric acid and phosphorus WNL (lower suspicion for tumor lysis syndrome) Continue Brukinsa after discharge Continue outpatient f/[facility] with [facility] (3) Sinus infection: BioFire negative Sinus CT suggestive of acute sinusitis Suspect viral etiology, however, given immunocompromised state, will discharge with 10 day course of Amoxicillin 500 mg tid Follow up with PCP after discharge (4) Cancer related pain: Continue home meds after discharge (5) Hyponatremia: Stable; Na 131 in am Plan Will discharge today. Total Time Total Time Spent Total Time Spent (In Minutes): As per attending attestation. Discharge Plan Discharge Items Patient Disposition: Home - Self-Care Reason For Visit: CLL, HPERK, SINUS INFECTION Discharge Diagnosis: CLL, Sinus Infection Activity: Per Instructions section Non-emergency contact: Primary Care Provider and Oncologist Call non-emergency contact if: your symptoms worsen and your temperature is above 101 Follow-up/Referrals: PCP,NO [Primary Care Provider] - Diet: Regular Addtl Attending Provider Instructions: You are admitted to the hospital due to an elevated mean cell count and elevated potassium count, which was also seen on initial lab testing when you arrived to the emergency department. Curiously, when we repeated those tests in a different test tube we saw that the value for your potassium levels was actually normal. This leads us to believe that the initial elevation in your potassium levels was not a real one and instead was due to the blood cells in the test tube breaking after your blood was drawn, leading to the appearance that the potassium in your blood was very high when in reality it is not. For this reason, we did not provide any additional intervention to correct potassium levels as they were already within normal limits. Your immune cell count (white blood cell count) was also elevated, which is likely due to a combination between your known history of CLL and recent initiation of medication for your CLL (Brukinsa). We spoke with the oncologist who explained that an elevation in white blood cell count is a common adverse effect that is seen pretty soon after initiating Brukinsa. Therefore, we will be discharging you today with the recommendation that you follow-up with your oncologist in their clinic as you have been up until now. With regards to your sinusitis, we believe that is likely viral. However, given your immunocompromise state, we will be discharging you with an antibiotic called Augmentin. Please take Amoxicillin by mouth 3 times a day (every 8 hours) for a total of 10 days. We do recommend that you take this antibiotic with food and water as it does have a possible side effect of GI upset. We recommend that you follow-up with your primary care provider within 1 to 2 weeks after discharge. A discharge summary will be sent to your primary care physician to ensure continuity of care. Please bring this discharge summary with you to your next office appointment so that your provider can review it at that time. Follow-up appointments: Keep all your follow-up appointments as already scheduled. If you cannot make an appointment, notify your provider. Medications: Your medication list has been reviewed and reconciled upon discharge to ensure accuracy and continuity of care. An updated list of all your medications is included with your hospital discharge paperwork. Please review this list closely, and make note of any changes. Take your medications as instructed; do not skip a dose of your medicines. Make sure all of your doctors know every medicine you are taking (including nopl-hdt-ethpyoj medicines, vitamins, and supplements). Call your primary care provider before taking any new medicines (including over- the-counter medicines, vitamins, and supplements), because some of these may interact with your current medications, or may make your symptoms worse. Tell your primary care provider if you cannot afford your medications. CONTACT YOUR PRIMARY CARE PROVIDER if you experience any of the following: Worsening of symptoms Fever, chills, or fatigue Difficulty following your treatment plan, or difficulty taking medications CALL 911 OR GO TO THE EMERGENCY DEPARTMENT if you experience any of the following: Sudden, severe abdominal pain or nausea/vomiting Severe chest pain, or chest pain that radiates (moves) to your jaw or arm Sudden, severe shortness of breath or difficulty breathing Thank you for allowing us to participate in your care. Pending Studies at Discharge: No Stand-Alone Forms: My [facility] [employer], Smoking Cessation Medications and DC Order Prescriptions: New amoxicillin 500 mg capsule 500 mg PO Q8H 10 Days Qty: 30 0RF Continued cyclobenzaprine 10 mg tablet 10 mg PO TID 90 Days Qty: 270 3RF Rx Instructions: Medication needed muscle spasms from chronic pain: Cervical and lumbar spine spondylosis, as well as chronic lymphocytic leukemia and muscle spasms from c hemotherapy. Also Fibromyalgia, and ankylosing spondylitis mjjxbdstxn-hmdgzodrsfnlw-bbfx 50-325-40 mg tablet 1 tab PO TID PRN (Reason: TENSION HEADACHES) Qty: 90 2RF sumatriptan succinate [Imitrex] 100 mg tablet 100 mg PO DAILY MDD 4 TABS/24 HOURS PRN (Reason: migraine headache) Qty: 9 2RF Rx Instructions: MAY REPEAT IF CONTINUES FOR 1.5 HOURS. oxycodone 20 mg tablet 20 mg PO Q4H Qty: 90 0RF ketorolac 10 mg tablet 10 mg PO TID 7 Days Qty: 21 5RF Rx Instructions: Takes tid x one week per month- other 3 weeks takes relafen pantoprazole 40 mg tablet,delayed release (DR/EC) 40 mg PO QAM Qty: 180 pilocarpine HCl [Salagen (pilocarpine)] 5 mg tablet 5 mg PO QID levothyroxine [Synthroid] 175 mcg tablet 175 mcg PO DAILYBB Rx Instructions: "BRAND NECESSARY' [place] Syringe 225 mg/1.5 mL syringe 225 mg subcut MONTHLY Qty: 1.5 11RF Patient Comments: on hold at present 09/22/23 nabumetone 750 mg tablet 750 mg PO BID Qty: 60 5RF Rx Instructions: TAKES FOR 3 WEEKS, THEN 1 WEEK TORADOL, THEN REPEAT SCHEDULE ondansetron HCl 8 mg tablet 8 mg PO TID PRN (Reason: NAUSEA/VOMITING) Qty: 90 3RF promethazine 25 mg tablet 25 mg PO Q4H PRN (Reason: nausea and vomiting) 30 Days Qty: 60 5RF Rx Instructions: Give patient 60 pills to last one month. meclizine 25 mg tablet 25 mg PO QID 30 Days Qty: 120 5RF ofloxacin [Ocuflox] 0.3 % drops 1 drops OPB TID furosemide 40 mg tablet 60 mg PO QAM PRN (Reason: swelling) Qty: 20 1RF nitroglycerin 400 mcg/spray spray,non-aerosol See Rx Instructions .ROUTE .COMPLEX Qty: 4.9 1RF Dose Instruction: USE 1 SPRAY SUBLINGUALLY EVERY 5 MINUTES NEEDED FOR CHEST PAIN Rx Instructions: USE 1 SPRAY SUBLINGUALLY EVERY 5 MINUTES NEEDED FOR CHEST PAIN metoprolol succinate 100 mg tablet extended release 24 hr See Rx Instructions PO .COMPLEX Qty: 225 3RF Rx Instructions: TAKES 150 MG QAM, THEN 100 MG QPM. orally, AND 25MG TID PRN metoprolol tartrate 50 mg tablet 50 mg PO TID PRN (Reason: tachycardia) Qty: 90 3RF Patient Comments: pt takes med for prn tachycardia not for hypertension. potassium chloride 10 mEq capsule, extended release 20 meq PO BID Qty: 360 3RF Rx Instructions: 03/25/24 THIS MED CURRENTLY ON HOLD ketorolac [Acular] 0.5 % drops 1 drp OPB TID olopatadine 0.1 % drops 1 drp OPB BID famotidine [Pepcid AC] 20 mg Tablet 20 mg PO BID PRN (Reason: Heartburn) timolol maleate [Istalol] 0.5 % drops, once daily 1 drp OPHTHALMIC (EYE) BID Rx Instructions: one drop in each eye, twice per day. cetirizine [Zyrtec] 10 mg Tablet 10 mg PO QAM diphenhydramine HCl [Benadryl] 25 mg Capsule 25 mg PO DAILY PRN (Reason: Allergy Symptoms) pseudoephedrine HCl [Sudafed] 30 mg Tablet 30 mg PO DIRECTED PRN (Reason: Congestion) oxymetazoline [Afrin (oxymetazoline)] 0.05 % [place],Non-Aerosol 2 spray INTRANASAL UD PRN (Reason: Congestion) Rx Instructions: q4-6 h guaifenesin [Mucinex] 600 mg Tablet Extended Release 12hr 600 mg PO Q12H PRN (Reason: Congestion) Magic Swizzle 1 dose PO DIRECTED PRN (Reason: MOUTH SORE FROM CHEMO) acyclovir 400 mg tablet 400 mg PO TID Patient Comments: Rx Instructions: TAKES WHILE ON VENCLEXTA. Refresh Optive Advanced (PF) 0.5-1-0.5 % [place]rette 1 drp OPHTHALMIC (EYE) DIRECTED PRN (Reason: Dry Eyes) loperamide 2 mg Capsule 2 mg PO Q6H PRN (Reason: Diarrhea) Rx Instructions: OK to take per Dr Hubbard zolpidem [Ambien] 10 mg tablet 10 mg PO HS PRN (Reason: Sleep) Rx Instructions: Take 1 hour before bedtime. Brukinsa 80 mg Capsule 160 mg PO QAM Rx Instructions: TWO CAPSULES EVERY MORNING morphine 30 mg tablet extended release 30 mg PO BID triamcinolone acetonide [Nasacort] 55 mcg Aerosol,[place] 1 spray INTRANASAL AMPM PRN (Reason: Allergy Symptoms) Rx Instructions: administer into each nostril Discharge Orders: Discharge Order (Routine); Ordered 03/26/24 Ordered By: Estephania Christiansen Admission Data Admit Date/Time: 03/25/24 15:43 Attending Provider: Reuben Moreno Admit Provider: Yariel Hatfield Primary Care Provider: PCP,GIUSEPPE Other Providers: Yariel Hatfield; Valeria Nuñez Other Interventions: Discharge Summary Assessment (RN) Last Done: 03/26/24 17:05 Supervising Physician Co-Signing Physician Notes I personally examined the patient and verified all rubio points of history and exam, discussed case, and agree with decision making with Dr Christiansen feeling very congested. Otherwise no acute complaints. Discussed lab findings again. Tried to offer reassurance in regards to the hyperkalemia and not being real. Appreciate heme-onc input. Vitals noted, in general she appears fatigued but no distress. HEENT normocephalic atraumatic mucous membranes moist. Breathing unlabored no accessory muscle use good effort. Skin without rashes pallor or icterus. Neuro without focal deficits. Labs, diagnostics, CT sinuses, etc. noted. Sinusitismost likely viral, but quite immune compromisequite reasonable to cover with antibiotics. Patient notes she tolerates amoxicillin 500 mg 3 times daily quite wellgiven that it we would really be covering empirically for regular sinus bacterial overgrowth, this seems to be quite reasonable regimenstarted dose now, and prescription sent to her pharmacy. Safe/stable for home CLLheme-onc noted okay for outpatient follow-up. Ferritin was 193.7 only a few weeks ago. Hyperkalemiafortunately was a spurious valueoutpatient follow-up. Resident Activity Tracking Resident Involvement: Resident Care Provided Care Provided: [facility]
--- NOTE | 2024-03-26 18:16 | Billing Data ---
Date of Service March 26, 2024 Coding Level of Care Code 74686 IN/OBS DISCH 30 MIN/LESS
[2024-03-27] MEDS ORDERED: [UNRECOGNIZED DRUG - REMARK] PO SCH (09:00)
== END 2024-03-26 17:54 | disposition home or self-care (01) | DRG 641 ==
LOC: ED 09:41 → 2E 15:43 → SUATTDRO 15:43 → 2E 17:44

== ENCOUNTER 2024-04-23 11:43 | Inpatient (IN) ==
--- NOTE | 2024-04-23 12:25 | Emergency Department Note ---
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 department at 1:42 PM. They noted that the patient does not have an IV bore large enough to accommodate an angio study. Only has a 22-gauge, they are requesting 18-gauge. Patient notes that she has had 18 gauges before and every time the veins are not able to sustain the large- bore and has issues. She notes overall poor venous access. In discussing options with the patient, we will change the order from CT angio of the chest to CT diagnostic and the 22-gauge IV will be sufficient for this and the neck CT with IV contrast. CT imaging as above. These were overall negative from an acute standpoint. I reviewed incidentals with the patient. The [employer] returned positive for COVID-19 which I do believe is the main etiology of symptoms at this time. However, noting comorbidities and immune system will provide intravenous antibiotic coverage pending cultures. Case discussed with the hospitalist service. Please refer to further documentation regarding her stay. In the evaluation and treatment of this patient the following differential diagnoses were entertained: RPA, [employer]ICIAN, pneumonia, PE, bacteremia, among others. Impression & Plan COVID-19, Hyponatremia Discharge Plan Visit Data Chief Complaint: Sore Throat Stated Complaint: SORE THROAT, TROUBLE SPEAKING/SWALLOWING ED Provider: Carlos Chowdary ED Midlevel Provider: Dread Clark Discharge Problem: COVID-19, Hyponatremia Patient Disposition: Admitted As Inpatient Condition: Fair Discharge Instructions Interventions: ED Discharge Assessment Last Done: 04/23/24 18:04
[2024-04-23 13:11] LABS: Albumin Globulin Ratio 2.1 (0.9-2); Albumin Level 3.9 gm/dl (3.4-5.0); BUN Creatinine Ratio 10.8 (10-20); Calcium 7.7 mg/dl (8.6-10.3); Creatinine Clr Calc Pharmacy 55.1 ml/min; Globulin 1.9 gm/dl (2.5-4.0); Total Protein 5.8 gm/dl (6.0-8.3)
[2024-04-23 13:24] LABS: Partial Thromboplastin Ratio 0.9; Partial Thromboplastin Time 25 Seconds (21-31); Prothrombin Time 10.4 Seconds (9.0-12.0)
[2024-04-23 13:25] LABS: Hematocrit (blood only) 26.3 % (37.0-47.0); Mean Corpuscular Hemoglobin 20.9 pg (25.0-34.0); Mean Corpuscular Hgb Conc 30.4 g/dL (32.0-36.0); Mean Corpuscular Volume 68.8 fL (80.0-100.0); Mean Platelet Volume 9.7 fL (9.4-12.4); Platelet Count 120 K/uL (130-400); RDW Standard Deviation 47.3 fL (36.4-46.3); Red Blood Count 3.82 M/uL (4.20-5.40); White Blood Count 178.65 K/ul (4.8-10.8)
[2024-04-23 14:01] LABS: Adenovirus PCR Not Detected (NotDetected); Bordetella parapertussis PCR Not Detected (NotDetected); Bordetella pertussis PCR Not Detected (NotDetected); Chlamydia pneumoniae PCR Not Detected (NotDetected); Coronavirus 229E PCR Not Detected (NotDetected); Coronavirus CoV-2 (COVID19)PCR DETECTED (NotDetected); Coronavirus HKU1 PCR Not Detected (NotDetected); Coronavirus NL63 PCR Not Detected (NotDetected); Coronavirus OC43PCR Not Detected (NotDetected); Human Metapneumovirus PCR Not Detected (NotDetected); Influenza A PCR Not Detected (NotDetected); Influenza B PCR Not Detected (NotDetected); Mycoplasma pneumoniae PCR Not Detected (NotDetected); Parainfluenza Virus 1 PCR Not Detected (NotDetected); Parainfluenza Virus 2 PCR Not Detected (NotDetected); Parainfluenza Virus 3 PCR Not Detected (NotDetected); Parainfluenza Virus 4 PCR Not Detected (NotDetected); Respiratory Syncytial VirusPCR Not Detected (NotDetected); Rhinovirus/Enterovirus PCR Not Detected (NotDetected)
[2024-04-23 14:09] LABS: Anisocytosis Present; Basophils # (auto) 0.95 K/uL (0.00-0.20); Basophils % (auto) 0.5 %; Eosinophils % (auto) 0.1 %; Hypochromasia Present; Immature Granulocytes # (auto) 0.28 K/uL (0.01-0.20); Immature Granulocytes % (auto) 0.2 %; Lymphocytes # (auto) 144.17 K/uL (1.20-3.40); Lymphocytes % (auto) 80.7 %; Microcytosis Present; Monocytes # (auto) 29.88 K/uL (0.11-0.59); Monocytes % (auto) 16.7 %; Neutrophils # (auto) 3.27 K/uL (1.40-6.50); Neutrophils % (auto) 1.8 %; Ovalocytes 1+; Polychromasia 1+; Smudge Cells Present; Tear Drop Cells 1+
[2024-04-23] MEDS: OPTIRAY 320 100ml IV ONE (14:56)
--- NOTE | 2024-04-23 15:26 | XRay Report ---
XR chest 1V portable HISTORY: 69 years-old Female chest pain COMPARISON: Chest CT January 07, 2024 TECHNIQUE: AP view the chest FINDINGS: Cardiomediastinal and hilar silhouettes are within normal limits. No pneumothorax, pleural effusion o r pulmonary edema. Mild patchy retrocardiac left basilar densities. The bones appear grossly intact. IMPRESSION: Mild left basilar densities suggest probable atelectasis. ACT 112: Negative or not required by law. The above report was generated using voice recognition software. It may contain grammatical, syntax o r spelling errors. Electronically signed by: Blade Sosa M.D. 04/23/2024 2:51 PM
--- NOTE | 2024-04-23 15:45 | CT Scan Report ---
CHEST CT WITH CONTRAST CT DOSE: 739.17 mGy.cm HISTORY: Acute chest pain with dysphagia. History of CLL. chest pain, trouble swallowing TECHNIQUE: Multiaxial CT images of the chest were performed following the IV administration of 93 cc of Optiray. A dose lowering technique was utilized adhering to the principles of ALARA. COMPARISON: CT soft tissue neck of same day, a chest CT , January 07, 2024 FINDINGS: Enlarged supraclavicular, axillary and bilateral hilar lymph nodes are similar to CT of Jan don2023. Index left axillary node on image 78 measures 3.1 x 1.8 cm, previously 3.1 x 1.8 cm. A right supraclavicular lymph node on image 17 measures 2 x 1.5 cm, unchanged . There is no pneumothorax or pleural effusion. There is no pericardial effusion. Mild intralobular sep [place] thickening. No suspicious pulmonary nodules are present. There is no consolidation to suggest pne umonia. The spleen is enlarged. Cholecystectomy with likely postsurgical biliary ductal dilation. Pat hologic lymphadenopathy of the upper abdomen most pronounced in the aziza hepatis distribution. Again seen is mild nonspecific wall thickening throughout the esophagus. No acute fracture or destructive bone lesion identified. Osseous structures again appear diffusely heterogeneous. IMPRESSION: 1. No acute intrathoracic abnormality. 2. Mild wall thickening throughout the esophagus redemonstrated which may represent an esophagitis. 3. No significant change of the pathologic lymphadenopathy of the neck, chest and upper abdomen navjot red to the January 07, 2024 study compatible with the patient's clinical diagnosis of CLL. 4. Marked splenomegaly redemonstrated. ACT 112: Negative or not required by law. Electronically signed by: Blade Sosa M.D. 04/23/2024 3:24 PM
--- NOTE | 2024-04-23 15:51 | CT Scan Report ---
CT soft tissue neck w con HISTORY: 69 years-old Female trouble swallowing, sore throat dysphagia with difficulty swallowing COMPARISON: Chest CT of same day and also 03/25/2024, CT soft tissue neck January 07, 2024. TECHNIQUE: Multiple axial CT images of the soft tissues of the neck were obtained with IV contrast. A dose lowering technique was used consistent with the principals of DORIS. FINDINGS: The imaged intracranial structures demonstrate no acute abnormality. The vascular structures of the n shell are within normal limits. Pathologic lymph nodes of the neck, supraclavicular distributions, axil jermaine chains and mediastinum redemonstrated. Index 1.5 x 1.8 cm right submandibular lymph node on imag e 205 degrees measured 1.8 x 1.4 cm. Chronic large defects in the nasal septum measuring 3.4 cm. Righ tward bowing and spurring of the nasal septum. Moderate mucosal thickening of the paranasal sinuses. Mastoid air cells are clear. Secretions are seen within the airway. No acute inflammatory changes or fluid collections. Unremarkab le glottis and subglottic airway. No acute fracture. IMPRESSION: 1. No acute inflammatory changes or fluid collections. 2. Secretions within the airway with moderate paranasal sinus disease. 3. Chronic nasal septal defect. 4. Stable pathologic lymphadenopathy compatible with the patient's clinical diagnosis of CLL. ACT 112: Negative or not required by law. The above report was generated using voice recognition software. It may contain grammatical, syntax o r spelling errors. Electronically signed by: Blade Sosa M.D. 04/23/2024 3:32 PM
[2024-04-23 16:05] LABS: Appearance Urine Clear (Clear); Bilirubin Urine Negative (Negative); Blood Urine Negative (Negative); Color Urine Yellow; Glucose Urine UA Negative (Negative); Ketones Urine Negative (Negative); Leukocyte Esterase Urine Negative (Negative); Nitrite Urine Negative (Negative); Protein Urine Negative (Negative); Specific Gravity Urine 1.023 (1.000-1.030); Urobilinogen Urine Negative (Negative)
[2024-04-23] MEDS ORDERED: VANCOMYCIN CONSULT ACTIVE PRN (16:09)
[2024-04-23] MEDS: HYDROmorphone INJ 0.5 MG/0.5 ML SYR IV STA (16:17)
[2024-04-23] MEDS: CEFEPIME 2000MG 2,000 MG/20 ML SYR IV STA (16:17)
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
[2024-04-23] MEDS ORDERED: ALUMINUM/MAGNESIUM SUSP 30 ML UDC PO PRN (16:59)
--- OUTSIDE RECORDS SUMMARY | 2024-04-23 17:39 | External Medical Summary | Summary of Care ---
Author Name Unknown Organization [facility] Address [address] [place] [address] Phone [phone] Care Team Providers Care It Audit Manager Name Role Phone Unavailable Primary Care Provider Unavailabl e Reason for Visit * Reason Onset Date Comments Appointment 04/16/2024 Encounter Details Date Type Department Care Team (Late st Contact Info) Description 04/16/2024 Telephone [facility] [address] [place] [address] Chris Benson, [address] [place], [place] [id number] Appointment Allergies Active Allergy Reactions Criticality Noted Date [...] hypoallergenic earrings Certain perfumes & lotions, certain record systems analyst and sprays Ibuprofen 06/16/2008 bruising Lamotrigine Rash [...] as of this encounter (statuses as of 04/19/2024) Medications FLEXERIL 10 MG PO TABS 1 [...] nitrate (SPECTAZOLE) 1 % cream 8 Active FREMANEZUMAB-VFRM 225 MG/1.5ML SOSY Inject 1.5 mL under the skin Every Month. 9 Active prednisolone acetate (PRED FORTE) 1 % ophthalmic suspension Instill 1 Drop into both eyes 4 times a day. 10 mL 3 9 Active Morphine Sulfate ER 30 MG Oral [...] 0.4 MG/SPRAY Translingual Solution (Nitrolingual) Place 1 [place] under the tongue as needed for Pain, Chest. Active Betamethasone Dipropionate 0.05 % External Ointment Start: 02/04/23 16:03:00 EDT, 1 appl, topical, bid, Disp# 45 g, Refills: 3, to hands BID, Pharmacy: [facility] 3 Active Clobetasol Propionate 0.05 % External Ointment (Temovate) Start: 02/04/23 13:55:00 EDT, 1 appl, topical, Daily, Disp# 45 g, Refills: 3, apply to hands qhs, Pharmacy: [facility] 3 Active Lomotil 2.5-0.025 MG Oral Tablet Take 2.5 mg by mouth. 4 Active predniSONE 10 MG Oral Tablet (Deltasone) 1 Tablet. 3 Active Timolol Maleate (Once-Daily) 0.5 % Ophthalmic [...] Capsule 01/26/2024 12:29 PM EDT 4 Active Brukinsa 80 MG Oral Capsule 160 mg. 4 025 Active Hydrocortisone Sod Suc (PF) 100 MG Injection Solution Reconstituted (Solu-Cortef) Administer 100 mg intravenously. 4 Active Pilocarpine HCl 5 MG Oral Tablet (Salagen) Take 1 Tablet by mouth in the morning and 1 Tablet at noon and 1 Tablet in the evening and 1 Tablet before bedtime. 360 Tablet 3 4 Active documented as of this encounter (statuses as of 04/19/2024) Active Problems Problem Noted Date Diagnosed Date [...] as of this encounter (statuses as of 04/19/2024) Resolved Problems Problem Noted Date Diagnosed Date Resolved Date Nasal septal deformity 08/14/201804/24 documented as of this encounter (statuses as of 04/19/2024) Social History Tobacco Use Types Packs/Day Years [...] encounter Miscellaneous Notes * Telephone Encounter - Rubia Corrales TECH - 04/19/2024 8:45 AM EST Spoke with pt letting her know that Dr. Benson is out of the office until 04/26. KULWINDER Duron 04/19/2024 8:46 AM * Telephone Encounter - Johanna Frederick OSA - 04/16/2024 3:15 PM EST Images from the original note were not included. Who is calling? Patient Best way to reach patient or person calling, if call back needed by nurse or physician: [phone] Patient complaint/concern: Patient called to say she is usually scheduled with Dr. Benson weekly for ten minutes to irrigate her tear ducts, and wants to know why she do not have an appointment for 04/19/2024 and 05/03/2024? She was given appointment on 04/12/2024 and 04/26/2024. She said she need Mondays or Wednesdays between 11 am and 12:30 pm. She said the doctor requested these times. Location: How long has it been going on: Timing: Associated symptoms: If having pain, have patient rate pain on a scale from 0 to 10 (10 being the worst pain ever) Yes Characterization- / Scale- If patient needs Automatic add to Urgent Care (Acute clinic) appointment and declined what is the reason: [place] ONLY: NOTIFY PATIENT: PLEASE ALLOW US UP TO 48 HOURS FOR A RESPONSE *Person filling out this form: Once form completed, please route to p [phone] (triage nurse pool) . Please let patient know you have sent symptoms for triage and someone will reach out to patient with further instruction. Physician or nurse will triage & reply with instruction to appropriate pools as listed below. Thank you! *Physicians triaging patient, please reply to: -If only instructions needed- NO appointment scheduling needed, please route to p [phone] (triage nurse pool). -If instructions AND appointment needed, please route to p [phone] (triage nurse pool) and p [phone] (sales receptionist pool). [place] ONLY: Route all messages to P [phone] [facility] Ophthalmology triage pool NOTIFY PATIENT: PLEASE ALLOW US UP TO 48 HOURS FOR A RESPONSE [place]: NOTIFY PATIENT: PLEASE ALLOW US UP TO 48 HOURS FOR A RESPONSE documented in this encounter Plan of Treatment Upcoming Encounters Date Type Department Care Team (Latest Contact Info) Description 04/26/2024 11:40 AM EST Office Visit Ophthalmology, [facility] [address] [place] [address] Chris Benson, DO [address] [place] [address] 04/27/2024 1:30 PM EST Hospital Encounter [facility]O [facility], Endoscopy Room [facility] [address] [place] [phone] Serena Soto DO [address] [place] [address] 04/27/2024 1:30 PM EST - 04/27/2024 2:00 PM EST Surgery ENDO [facility], Endoscopy Room [facility] [address] [place] [phone] Serena Soto DO [address] [place] [address] COLONOSCOPY FLEXIBLE PROXIMAL DIAGNOSTIC 09/22/2024 10:40 AM EDT Office Visit Rheumatology [facility] [address] [place] [phone] Cyrus Ferreira MD [address] [place] [address] Scheduled Procedures Name Priority Associated Diagnoses Date/Ti me COLONOSCOPY FLEXIBLE PROXIMAL DIAGNOSTIC Recall Diarrhea History of colon polyps 04/27/2024 1:30 PM EST Health Maintenance Due Date Last Done Comments DXA Scan 1956 Lipid Panel 1956 COVID-19 Vaccine (#1) 1961 Depression Screening 1968 Hepatitis C Screening 1974 Pneumococcal Vaccine: 50+ Years (1 of 2 - PCV) 1975 Zoster Vaccines (1 of 2) 1975 Mammogram [...]
--- OUTSIDE RECORDS SUMMARY | 2024-04-23 17:39 | External Medical Summary | Summary of Care ---
Author Name Unknown Organization [facility] Address [address] [place] [address] Phone [phone] Care Team Providers Care Component Assembler Name Role Phone Unavailable Primary Care Provider Unavailabl e Reason for Visit * Reason Onset Date Comments Appointment Canceled 04/20/2024 Encounter Details Date Type Department Care Team (Late st Contact Info) Description 04/20/2024 Telephone Gastroenterology, [facility] [address] [place], [place] [phone] Services, Scheduling [address] [place] [address] Appointment Canceled Allergies Active Allergy Reactions Criticality Noted Date [...] hypoallergenic earrings Certain perfumes & lotions, certain sander machine and sprays Ibuprofen 06/16/2008 bruising Lamotrigine Rash [...] as of this encounter (statuses as of 04/20/2024) Medications FLEXERIL 10 MG PO TABS 1 [...] 0.4 MG/SPRAY Translingual Solution (Nitrolingual) Place 1 [place] under the tongue as needed for Pain, Chest. Active Betamethasone Dipropionate 0.05 % External Ointment Start: 02/04/23 16:03:00 EDT, 1 appl, topical, bid, Disp# 45 g, Refills: 3, to hands BID, Pharmacy: [facility] 3 Active Clobetasol Propionate 0.05 % External Ointment (Temovate) Start: 02/04/23 13:55:00 EDT, 1 appl, topical, Daily, Disp# 45 g, Refills: 3, apply to hands qhs, Pharmacy: [facility] 3 Active Lomotil 2.5-0.025 MG Oral Tablet [...] as of this encounter (statuses as of 04/20/2024) Active Problems Problem Noted Date Diagnosed Date [...] as of this encounter (statuses as of 04/20/2024) Resolved Problems Problem Noted Date Diagnosed Date Resolved Date Nasal septal deformity 08/14/201804/24 documented as of this encounter (statuses as of 04/20/2024) Social History Tobacco Use Types Packs/Day Years [...] encounter Miscellaneous Notes * Telephone Encounter - Di Gaona OSA - 04/20/2024 11:18 AM EST Pt calling in cancelling her colonscopy and rescheduling for September due to 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 Pt is having that removed 04/29/24. Pt is scheduled with natalie on 05/20 via video and will be able to have the biopsy results by that appt and they can relate that information to you. But pt just wanted to touch base with you. * Telephone Encounter - Karen Boyd OSA - 04/20/2024 11:05 AM EST Please give her a call she needs to cancel for 04/[address] Soto for colonoscopy and would like to see about rescheduling documented in this encounter Plan of Treatment Upcoming Encounters Date Type Department Care Team (Latest Contact Info) Description 04/26/2024 11:40 AM EST Office Visit Ophthalmology, [facility] 132 [facility] [place] [address] Chris Benson, [address] [place] [address] 05/20/2024 11:30 AM EST Telemedicine Gastroenterology, [facility] 132 [facility] [place] [address] Natalie Ratliff CRNP 132 [facility] [place] [address] 09/13/2024 2:30 PM EDT Hospital Encounter ENDO [facility], Endoscopy Room [facility] [address] [place] [phone] Serena Soto, DO [address] [place] [address] 09/13/2024 2:30 PM EDT - 09/13/2024 3:00 PM EDT Surgery ENDO [facility], Endoscopy Room [facility] [address] [place] [phone] Serena Soto, DO [address] [place] [address] COLONOSCOPY FLEXIBLE PROXIMAL DIAGNOSTIC 09/22/2024 10:40 AM EDT Office Visit Rheumatology [facility] [address] [place] [phone] Cyrus Ferreira MD [facility], [place] [address] Scheduled Procedures Name Priority Associated Diagnoses Date/Ti me COLONOSCOPY FLEXIBLE PROXIMAL DIAGNOSTIC Recall Diarrhea History of colon polyps 09/13/2024 2:30 PM EDT Health Maintenance Due Date Last [...]
--- OUTSIDE RECORDS SUMMARY | 2024-04-23 17:39 | External Medical Summary | Summary of Care ---
Author Name Unknown Organization [facility] Address [address] [place] [address] Phone [phone] Care Team Providers Care Legal Coordinator Name Role Phone Unavailable Primary Care Provider Unavailabl e Reason for Visit * Reason Onset Date Comments Appointment Canceled 04/20/2024 Encounter Details Date Type Department Care Team (Late st Contact Info) Description 04/20/2024 Telephone Gastroenterology, [facility] [address] [place], [place] [phone] Services, Scheduling [address] [place] [address] Appointment Canceled Allergies Active Allergy Reactions Criticality [...] hypoallergenic earrings Certain perfumes & lotions, certain bartender manager and sprays Ibuprofen 06/16/2008 bruising Lamotrigine Rash [...] as of this encounter (statuses as of 04/21/2024) Medications FLEXERIL 10 MG PO TABS 1 [...] 0.4 MG/SPRAY Translingual Solution (Nitrolingual) Place 1 [place] under the tongue as needed for Pain, [...] as of this encounter (statuses as of 04/21/2024) Active Problems Problem Noted Date Diagnosed Date [...] as of this encounter (statuses as of 04/21/2024) Resolved Problems Problem Noted Date Diagnosed Date Resolved Date Nasal septal deformity 08/14/201804/24 documented as of this encounter (statuses as of 04/21/2024) Social History Tobacco Use Types Packs/Day Years [...] encounter Miscellaneous Notes * Telephone Encounter - Serena Soto DO - 04/21/2024 11:26 AM EST Thanks for letting us know, rescheduling for a later date sounds appropriate. * Telephone Encounter - Di Gaona OSA [...] 04/26/2024 11:40 AM EST Office Visit Ophthalmology, [facility] 132 [facility] [place] [address] Chris Benson, 16 [facility] [place] [address] 05/20/2024 11:30 AM EST Telemedicine Gastroenterology, [facility] [address] [place] [address] Natalie Ratliff CRNP [address] [place] [address] 09/13/2024 2:30 PM EDT Hospital Encounter ENDO [facility], Endoscopy Room [facility] [address] [place] [phone] Serena Soto, DO [address] [place] [address] 09/13/2024 2:30 PM EDT - 09/13/2024 3:00 PM EDT Surgery ENDO [facility], Endoscopy Room [facility] [address] [place] [phone] Serena Soto, DO [address] [place] [address] COLONOSCOPY FLEXIBLE PROXIMAL DIAGNOSTIC 09/22/2024 10:40 AM EDT Office Visit Rheumatology [facility] [address] [place] [phone] Cyrus Ferreira MD [address] [place] [address] Scheduled Procedures Name Priority Associated Diagnoses Date/Ti [...]
[2024-04-23] MEDS: VANCOMYCIN HCL 1,250 MG in SODIUM CHLORIDE 0.9% 500 ML IV ONE (18:16)
[2024-04-23] MEDS ORDERED: METOPROLOL SUCC 50MG EXT REL TAB PO SCH (19:11)
[2024-04-23] MEDS ORDERED: ZOLPIDEM TARTRATE 5 MG TAB PO PRN (19:28)
[2024-04-23] MEDS: oxyCODONE HCL IR 5 MG TAB (IMMEDIATE RELEASE) PO PRN (19:58)
[2024-04-23] MEDS ORDERED: POTASSIUM CHLORIDE CRTAB 20 MEQ TABCR PO SCH (21:00)
[2024-04-23] MEDS: ENOXAPARIN INJ 40 MG/0.4 ML SYR SQ SCH (21:03)
[2024-04-23] MEDS: MoRPHine SULFATE CR 15 MG TABCR PO SCH (21:04)
[2024-04-23] MEDS: METOPROLOL SUCC 50MG EXT REL TAB PO SCH (21:05)
[2024-04-23] MEDS: ACYCLOVIR 400 MG TAB PO SCH (21:06)
[2024-04-23] MEDS: NYSTATIN SUSP 500,000 U/5 ML UDC PO SCH (21:06)
[2024-04-23] MEDS: OFLOXACIN 0.3% 75 DROPS/5 ML BTL OPB SCH (21:07)
[2024-04-23] MEDS: BUTALBITAL/ACETAMIN/CAFFEINE TAB PO PRN (21:08)
[2024-04-23] MEDS: PILOCARPINE HCL 5 MG TABLET PO SCH (21:08)
[2024-04-23] MEDS: TIMOLOL MALEATE 0.5% OP SOLN 5 ML BTL OP SCH (21:08)
--- NOTE | 2024-04-23 23:05 | Electrocardiogram Report ---
Test Reason : Blood Pressure : */* mmHG Vent. Rate : 71 BPM Atrial Rate : 71 BPM P-R Int : 152 ms QRS Dur : 78 ms QT Int : 392 ms P-R-T Axes : 31 0 17 degrees QTcB Int : 425 ms Normal sinus rhythm Normal ECG When compared with ECG of 25-Mar-2024 15:35, No significant change was found Confirmed by Abhijit Garnica ([id number]) on 04/23/2024 11:05:04 PM Referred By: Confirmed By: Abhijit Garnica
[2024-04-23] MEDS: guaiFENesin 600 MG TABCR PO PRN (23:49)
[2024-04-23] MEDS: VANCOMYCIN HCL 1,500 MG in SODIUM CHLORIDE 0.9% 500 ML IV SCH (23:50)
[2024-04-24] MEDS: CYCLOBENZAPRINE HCL 10 MG TAB PO PRN (01:32)
[2024-04-24] MEDS: ONDANSETRON INJ 2 MG/ML 2 ML VIAL IV PRN (04:54)
[2024-04-24] MEDS: CEFEPIME 2000MG 2,000 MG/20 ML SYR IV SCH (06:01)
[2024-04-24] MEDS: LEVOTHYROXINE SODIUM 175 MCG TABLET PO SCH (06:02)
[2024-04-24 06:44] LABS: BUN Creatinine Ratio 10.1 (10-20); Creatinine Clr Calc Pharmacy 66.1 ml/min; Potassium 5.3 mmol/L (3.5-5.1)
[2024-04-24 07:15] LABS: Hemoglobin 8.1 g/dl (12.0-16.0); Mean Corpuscular Hemoglobin 20.8 pg (25.0-34.0); Mean Corpuscular Volume 69.4 fL (80.0-100.0); Platelet Count 118 K/uL (130-400); RDW Coefficient of Variation 19.9 % (11.5-14.5); RDW Standard Deviation 46.9 fL (36.4-46.3); Red Blood Count 3.89 M/uL (4.20-5.40); White Blood Count 187.96 K/ul (4.8-10.8)
[2024-04-24 07:17] LABS: Basophils # (auto) 0.87 K/uL (0.00-0.20); Basophils % (auto) 0.5 %; Eosinophils # (auto) 0.06 K/uL (0.00-0.50); Hypochromasia Present; Immature Granulocytes # (auto) 0.25 K/uL (0.01-0.20); Immature Granulocytes % (auto) 0.1 %; Lymphocytes # (auto) 162.12 K/uL (1.20-3.40); Lymphocytes % (auto) 86.3 %; Microcytosis Present; Monocytes # (auto) 21.44 K/uL (0.11-0.59); Monocytes % (auto) 11.4 %; Neutrophils # (auto) 3.22 K/uL (1.40-6.50); Neutrophils % (auto) 1.7 %; Platelet Estimate Decreased (Normal)
--- NOTE | 2024-04-24 07:49 | Hospitalist Progress Note ---
Date of Service April 24, 2024 Assessment & Plan (1) COVID: Plan: Diana is a 69-year-old female with a past medical history of CLL, Sjogren's, ankylosing spondylitis, thyroid cancer, herpes zoster, polyneuropathy, paroxysmal SVT [facility] and undergoing chemotherapy for CLL who presented to the ER with a sore throat, difficulty speaking, difficulty swallowing. She has had a low-grade fever and a temperature of 99.9 at home. She is found to be COVID-positive, but due to a additional granulocytic expansion and immunocompromise recommended for empiric coverage and admission as inpatient until cultures were negative for at least 24 hours. COVID With fevers, pharyngitis, fatigue No hypoxia Supportive care Due to immune compromise, fever, and granulocytic expansion patient was recommended for observation for potential superinfection and treatment with empiric antibiotics pending blood culture results. Chest x-ray does show left basilar densities ?atelectasis. Cefepime/vancomycin continued - procal nl Sputum culture pending Blood cultures pending Monitor closely for secondary sinus infection. Patient has had issues with this in the past and is immune compromised with CLL, and if recurrent was recom mended to consider IVIG infusions Monospot negative Throat culture pending Esophagitis, gastritis Patient has had some nausea/vomiting and stomach irritation which is worsened by her medications. No blood in her emesis tends to be yellowish/orange in color Does have a history of thrush no overt thrush spots are seen. She is at risk for this as she is on chronic PPI therapy, twice daily H2 therapy, and is immune suppressed with her malignancy Will include GI cocktail, and also trial swish and swallow nystatin Does have some intermittent burning chest pain likely GI. Troponin is normal. CTchest with contrast was not PE protocol but did not show obvious evidence of PE and she is not hypoxic/tachycardic CLL White count 178, improved from prior. She is under treatment with CCP Initial potassium was read as 6.0. This is not accurate. Potassium must be drawn off of a non-spun tube or non-heparinized tube or cells will lyse and artificially raise potassium. Repeat accurate sample is with potassium 3.9. There is no true indication for hyperkalemia treatment at this time Brukinsa temporarily held in the setting of acute infection Buttock mass Small palpable mass at the right buttock near the sacrum is present, patient was pending removal of this with general surgery. There is no overlying warmth/erythema but is very tender to palpation. Did have a CT and does not appear to be an abscess on prior imaging review. Likely related to her lymphoma and does not have any signs of overlying infection on exam. Continue to monitor, if she show signs of secondary bacterial infection and no other source is identified could revisit this at that time Chronic stable issues: History of paroxysmal SVT: Continue beta-tristan Hypothyroidism: Continue Synthroid DVT prophylaxis: Lovenox Disposition: MT CODE STATUS: Full code Diet: regular 04/24: family at bedside (2) CLL (chronic lymphocytic leukemia): (3) Hypothyroidism: Admission and Anticipated Discharge Date Admission Date: April 23, 2024 Subjective Admitted overnight Currently complaining of sore throat still and nasal congestion Review of Systems Review of Systems: Comprehensive ROS neg Physical Exam Physical Exam: Gen: NAD HEENT: NC/AT, MMM, diminished voice / mildly hoarse, not able to visualize posterior oropharynx, however uvula not swollen or red Lungs: diminished breath sounds at the bases CVS: s1s2nl, RRR Abd: soft, NT, nl bowel sounds Ext: no edema Results & Data Results & Data Vital Signs (Past 12 Hours) Vital Signs Temp Pulse Pulse Resp BP Pulse Ox O2 Del Method 04/24/24 03:37 36.7 C 93 H 18 131/74 93 Room Air 04/24/24 01:50 Room Air 04/23/24 23:00 36.6 C 68 18 133/74 95 Room Air 04/23/24 22:04 70 04/23/24 21:36 71 PG Care Time/CCT Total # of Minutes Spent Total Time Spent with Patient: Total time spent is greater than 50% in coordination of care (as documented) at patient's floor/unit and/or counseling patient: Coding Level of Care Code 84779 SUB INP/OBS CARE 2/35MIN Diagnoses COVID U07.1 CLL (chronic lymphocytic leukemia) C91.90 Hypothyroidism E03.9
[2024-04-24] MEDS: FUROSEMIDE 20 MG TAB PO PRN (08:51)
[2024-04-24] MEDS: PANTOprazole 40 MG TAB PO SCH (08:52)
[2024-04-24] MEDS: FAMOTIDINE 20 MG TAB PO PRN (08:52)
[2024-04-24] MEDS: CETIRIZINE HCL 10 MG TABLET PO SCH (08:52)
[2024-04-24] MEDS: METOPROLOL TARTRATE 50 MG TAB PO PRN (08:55)
[2024-04-24] MEDS: METOPROLOL SUCC 50MG EXT REL TAB PO SCH (09:04)
--- NOTE | 2024-04-24 13:03 | Pharmacy Report ---
Pharmacy PK ABX Note - Date of Service April 24, 2024 - Assessment and Plan Assessment 69 year old F receiving empiric vancomycin/cefepime. PMH including CLL, Sjogren's, ankylosing spondlitis, thyroid cancer. Pertinent microbiologic data includes: Blood cultures pending. COVID 19+; covering with empiric coverage until cultures negative. throat culture normal lauren. Plan Vancomycin * Loading dose: 1250 mg IV x 1 * Maintenance dose: 1500 mg IV every 24 hours * Regimen is predicted to achieve target AUC/ALLA of 400-600 mg/L.hr * Random level to be obtained if continued > 48 hours Pharmacy will continue to follow and will adjust dose/frequency as necessary. Thank you. Pharmacy has transitioned to AUC monitoring for vancomycin. AUC/ALLA is the preferred PK/PD target and is associated with decreased risk of nephrotoxicity compared to traditional trough targets.
[2024-04-24] MEDS: ALUMINUM/MAGNESIUM SUSP 30 ML UDC PO SCH (13:32)
[2024-04-24] MEDS: OXYMETAZOLINE 0.05% 30 ML BTL SCH (13:33)
[2024-04-24] MEDS: MECLIZINE HCL 25 MG TAB PO SCH (18:02)
[2024-04-25] MEDS: GABAPENTIN 100 MG CAP PO ONE (04:32)
[2024-04-25 07:23] LABS: Hematocrit (blood only) 23.9 % (37.0-47.0); Hemoglobin 7.2 g/dl (12.0-16.0); Mean Corpuscular Hemoglobin 20.7 pg (25.0-34.0); Mean Corpuscular Hgb Conc 30.1 g/dL (32.0-36.0); Mean Corpuscular Volume 68.7 fL (80.0-100.0); Mean Platelet Volume 9.2 fL (9.4-12.4); Platelet Count 117 K/uL (130-400); RDW Coefficient of Variation 19.8 % (11.5-14.5); RDW Standard Deviation 46.5 fL (36.4-46.3); Red Blood Count 3.48 M/uL (4.20-5.40); White Blood Count 154.52 K/ul (4.8-10.8)
[2024-04-25 07:25] LABS: BUN Creatinine Ratio 9.7 (10-20); Calcium 7.8 mg/dl (8.6-10.3); Creatinine Clr Calc Pharmacy 63.3 ml/min; Potassium 3.5 mmol/L (3.5-5.1)
[2024-04-25 08:23] LABS: Basophils # (auto) 0.78 K/uL (0.00-0.20); Basophils % (auto) 0.5 %; Eosinophils # (auto) 0.08 K/uL (0.00-0.50); Eosinophils % (auto) 0.1 %; Hypochromasia Present; Immature Granulocytes # (auto) 0.19 K/uL (0.01-0.20); Immature Granulocytes % (auto) 0.1 %; Lymphocytes # (auto) 130.12 K/uL (1.20-3.40); Lymphocytes % (auto) 84.2 %; Monocytes # (auto) 20.48 K/uL (0.11-0.59); Monocytes % (auto) 13.3 %; Neutrophils # (auto) 2.87 K/uL (1.40-6.50); Neutrophils % (auto) 1.8 %
--- NOTE | 2024-04-25 08:49 | Hospitalist Progress Note ---
Date of Service April 25, 2024 Assessment & Plan (1) COVID: (2) CLL (chronic lymphocytic leukemia): (3) Hypothyroidism: Plan Diana is a 69-year-old female with a past medical history of CLL, Sjogren's, ankylosing spondylitis, thyroid cancer, herpes zoster, polyneuropathy, paroxys mal SVT [facility] and undergoing chemotherapy for CLL who presented to the ER with a sore throat, difficulty speaking, difficulty swallowing. She has had a low-grade fever and a temperature of 99.9 at home. She is found to be COVID-positive, but due to a additional granulocytic expansion and immunocompromise recommended for empiric coverage and admission as inpatient until cultures were negative for at least 24 hours. COVID With fevers, pharyngitis, fatigue No hypoxia Supportive care Due to immune compromise, fever, and granulocytic expansion patient was recommended for observation for potential superinfection and treatment with empiric antibiotics pending blood culture results. Chest x-ray does show left basilar densities ?atelectasis. CT chest without evidence of consolidation - will de-escalate abx, d/c vanc, cont Cefepime at this time - procal nl Sputum culture pending Blood cultures NGTD Monitor closely for secondary sinus infection. Patient has had issues with this in the past and is immune compromised with CLL, and if recurrent was recommended to consider IVIG infusions Monospot negative Throat culture normal lauren Esophagitis, gastritis Patient has had some nausea/vomiting and stomach irritation which is worsened by her medications. No blood in her emesis tends to be yellowish/orange in color Does have a history of thrush no overt thrush spots are seen. She is at risk for this as she is on chronic PPI therapy, twice daily H2 therapy, and is immune suppressed with her malignancy Will include GI cocktail, and also trial swish and swallow nystatin Does have some intermittent burning chest pain likely GI. Troponin is normal. CTchest with contrast was not PE protocol but did not show obvious evidence of PE and she is not hypoxic/tachycardic CLL White count 154, improved from prior. She is under treatment with CCP Initial potassium was read as 6.0. This is not accurate. Potassium must be drawn off of a non-spun tube or non-heparinized tube or cells will lyse and artificially raise potassium. There is no true indication for hyperkalemia treatment at this time Brukinsa temporarily held in the setting of acute infection Buttock mass Small palpable mass at the right buttock near the sacrum is present, patient was pending removal of this with general surgery. There is no overlying warmth/erythema but is very tender to palpation. Did have a CT and does not appear to be an abscess on prior imaging review. Likely related to her lymphoma and does not have any signs of overlying infection on exam. Continue to monitor, if she show signs of secondary bacterial infection and no other source is identified could revisit this at that time Chronic stable issues: History of paroxysmal SVT: Continue beta-tristan Hypothyroidism: Continue Synthroid DVT prophylaxis: Lovenox Disposition: potential discharge 04/26 if Hgb remains stable and symptoms remain stable CODE STATUS: Full code Diet: regular 04/24, 04/25: family at bedside Admission and Anticipated Discharge Date Admission Date: April 23, 2024 Subjective No acute events overnight Pt did have a drop in hemoglobin. she denied any nosebleeds, hematemesis, melena, BRBPR Pt stated that her transfusion criteria per her oncologist is <8 Review of Systems Review of Systems: Comprehensive ROS neg Physical Exam Physical Exam: Gen: NAD HEENT: NC/AT, MMM, diminished voice / mildly hoarse, not able to visualize posterior oropharynx, however uvula not swollen or red Lungs: diminished breath sounds at the bases CVS: s1s2nl, RRR Abd: soft, NT, nl bowel sounds Ext: no edema Results & Data Results & Data Vital Signs (Past 12 Hours) Vital Signs Temp Pulse Pulse Resp BP BP Pulse Ox 04/25/24 07:46 37.2 C 70 18 116/66 93 04/25/24 02:49 36.6 C 72 16 115/56 L 94 04/24/24 23:58 36.7 C 66 16 113/54 L 95 04/24/24 21:57 69 O2 Del Method 04/25/24 07:46 Room Air 04/25/24 02:49 Room Air 04/24/24 23:58 Room Air 04/24/24 21:57 PG Care Time/CCT Total # of Minutes Spent Total Time Spent with Patient: Total time spent is greater than 50% in coordination of care (as documented) at patient's floor/unit and/or counseling patient: Coding Level of Care Code 23640 SUB INP/OBS CARE 2/35MIN Diagnoses COVID U07.1 CLL (chronic lymphocytic leukemia) C91.90 Hypothyroidism E03.9
[2024-04-25] MEDS ORDERED: SODIUM CHLORIDE 0.9% 100 ML IV PRN (09:02)
[2024-04-25] MEDS ORDERED: SODIUM CHLORIDE 0.9% 50 ML IV PRN (09:02)
[2024-04-25] MEDS: KETOROLAC 0.5% OP SOLN 5 ML BTL OPB SCH (10:49)
[2024-04-25] MEDS: diphenhydrAMINE Capsule 25 MG CAP PO PRN (10:54)
[2024-04-25] MEDS: ACETAMINOPHEN 325 MG TAB PO PRN (10:54)
[2024-04-25] MEDS: COUGH DROP (SUGAR FREE) LOZ 24 LOZ/1 BOX BUCCAL PRN (18:55)
[2024-04-25] MEDS: CYCLOBENZAPRINE HCL 10 MG TAB PO PRN (20:37)
[2024-04-26 06:35] LABS: BUN Creatinine Ratio 8.9 (10-20); Calcium 7.8 mg/dl (8.6-10.3); Creatinine Clr Calc Pharmacy 57.5 ml/min
[2024-04-26 07:10] LABS: Hematocrit (blood only) 27.1 % (37.0-47.0); Hemoglobin 8.7 g/dl (12.0-16.0); Mean Corpuscular Hgb Conc 32.1 g/dL (32.0-36.0); Mean Corpuscular Volume 68.6 fL (80.0-100.0); Mean Platelet Volume 10.2 fL (9.4-12.4); Platelet Count 109 K/uL (130-400); RDW Coefficient of Variation 20.4 % (11.5-14.5); RDW Standard Deviation 48.6 fL (36.4-46.3); Red Blood Count 3.95 M/uL (4.20-5.40); White Blood Count 153.75 K/ul (4.8-10.8)
[2024-04-26 07:12] LABS: Basophils # (auto) 0.98 K/uL (0.00-0.20); Basophils % (auto) 0.6 %; Eosinophils % (auto) 0.1 %; Hypochromasia Present; Immature Granulocytes # (auto) 0.26 K/uL (0.01-0.20); Immature Granulocytes % (auto) 0.2 %; Lymphocytes % (auto) 85.1 %; Microcytosis Present; Monocytes % (auto) 10.1 %; Neutrophils # (auto) 6.01 K/uL (1.40-6.50); Neutrophils % (auto) 3.9 %; Ovalocytes 1+; Polychromasia 2+; Smudge Cells Present; Tear Drop Cells 1+
--- NOTE | 2024-04-26 14:43 | Hospitalist Progress Note ---
Date of Service April 26, 2024 Assessment & Plan (1) COVID: (2) CLL (chronic lymphocytic leukemia): (3) Hypothyroidism: Plan Diana is a 69-year-old female with a past medical history of CLL, Sjogren's, ankylosing spondylitis, thyroid cancer, herpes zoster, polyneuropathy, paroxys mal SVT [facility] and undergoing chemotherapy for CLL who presented to the ER with a sore throat, difficulty speaking, difficulty swallowing. She has had a low-grade fever and a temperature of 99.9 at home. She is found to be COVID-positive, but due to a additional granulocytic expansion and immunocompromise recommended for empiric coverage and admission as inpatient until cultures were negative for at least 24 hours. COVID With fevers, pharyngitis, fatigue No hypoxia Supportive care Due to immune compromise, fever, and granulocytic expansion patient was recommended for observation for potential superinfection and treatment with empiric antibiotics pending blood culture results. Chest x-ray does show left basilar densities ?atelectasis. CT chest without evidence of consolidation - will de-escalate abx, vancomycin already discontinued. Discontinue cefepime today. - procal nl Sputum culture pending Blood cultures NGTD Monitor closely for secondary sinus infection. Patient has had issues with this in the past and is immune compromised with CLL, and if recurrent was recommended to consider IVIG infusions Monospot negative Throat culture normal lauren Esophagitis, gastritis Patient has had some nausea/vomiting and stomach irritation which is worsened by her medications. No blood in her emesis tends to be yellowish/orange in color Does have a history of thrush no overt thrush spots are seen. She is at risk for this as she is on chronic PPI therapy, twice daily H2 therapy, and is immune suppressed with her malignancy Will include GI cocktail, and also trial swish and swallow nystatin Does have some intermittent burning chest pain likely GI. Troponin is normal. CTchest with contrast was not PE protocol but did not show obvious evidence of PE and she is not hypoxic/tachycardic CLL White count 154, improved from prior. She is under treatment with CCP Initial potassium was read as 6.0. This is not accurate. Potassium must be drawn off of a non-spun tube or non-heparinized tube or cells will lyse and artificially raise potassium. There is no true indication for hyperkalemia treatment at this time Cherelle temporarily held in the setting of acute infection Buttock mass Small palpable mass at the right buttock near the sacrum is present, patient was pending removal of this with general surgery. There is no overlying warmth/erythema but is very tender to palpation. Did have a CT and does not appear to be an abscess on prior imaging review. Likely related to her lymphoma and does not have any signs of overlying infection on exam. Continue to monitor, if she show signs of secondary bacterial infection and no other source is identified could revisit this at that time Chronic stable issues: History of paroxysmal SVT: Continue beta-tristan Hypothyroidism: Continue Synthroid DVT prophylaxis: Lovenox Disposition: potential discharge 04/27 CODE STATUS: Full code Diet: regular 04/26: Discussed with family at bedside. Admission and Anticipated Discharge Date Admission Date: April 23, 2024 Subjective Patient was seen and examined at 12:15 PM. No new major complaints. But patient still complains of vague symptoms of sinus congestion, fatigue and muscle aches. Review of Systems Review of Systems: All systems reviewed & are unremarkable except as noted in Subjective Physical Exam Physical Exam: General: Awake, conversant Heart: S1, S2/regular rate and rhythm, no murmur rubs or gallops Lungs: Clear to auscultation bilaterally. Normal effort Abdomen: Soft/nontender/nondistended. No hepatosplenomegaly Extremities: No clubbing/cyanosis. No edema Behavior: Appropriate, cooperative Results & Data Results & Data Vital Signs (Past 12 Hours) Vital Signs Temp Pulse Pulse Resp BP Pulse Ox O2 Del Method 04/26/24 10:34 37.3 C 100 H 19 118/70 92 Room Air 04/26/24 08:00 Room Air 04/26/24 07:37 36.7 C 102 H 20 125/73 96 Room Air 04/26/24 05:50 99 H Laboratory Results Abnormal lab results 04/25/24 04/25/24 04/26/24 Range/Units 09:26 18:12 05:49 WBC 153.75 H* (4.8-10.8) K/ul RBC 3.95 L (4.20-5.40) M/uL Hgb 8.9 L 8.7 L (12.0-16.0) g/dl Hct 27.1 L (37.0-47.0) % MCV 68.6 L (80.0-100.0) fL MCH 22.0 L (25.0-34.0) pg RDW Std Deviation 48.6 H (36.4-46.3) fL RDW Coeff of Jillian 20.4 H (11.5-14.5) % Plt Count 109 L (130-400) K/uL Lymph # (Auto) 130.80 H (1.20-3.40) K/uL [place] # (Auto) 15.60 H (0.11-0.59) K/uL Baso # (Auto) 0.98 H (0.00-0.20) K/uL Immature Gran # (Auto) 0.26 H (0.01-0.20) K/uL Sodium 131 L (136-145) mmol/L Anion Gap 2 L (3-11) BUN/Creatinine Ratio 8.9 L (10-20) Glucose 107 H (70-99(Fasting)) mg/dl Calcium 7.8 L (8.6-10.3) mg/dl Crossmatch See Detail PG Care Time/CCT Total # of Minutes Spent Total Time Spent with Patient: Total time spent is greater than 50% in coordination of care (as documented) at patient's floor/unit and/or counseling patient: Coding Level of Care Code 49549 SUB INP/OBS CARE 2/35MIN Diagnoses COVID U07.1 CLL (chronic lymphocytic leukemia) C91.90 Hypothyroidism E03.9
[2024-04-26 19:58] VITALS: RESP 18
[2024-04-27 07:37] VITALS: PULSE 82; TEMP 99.3; O2SAT 91
[2024-04-27 08:57] LABS: BUN Creatinine Ratio 9.5 (10-20); Calcium 8.1 mg/dl (8.6-10.3); Creatinine Clr Calc Pharmacy 61.6 ml/min; Potassium 3.8 mmol/L (3.5-5.1)
[2024-04-27 08:58] LABS: Hematocrit (blood only) 28.2 % (37.0-47.0); Hemoglobin 8.6 g/dl (12.0-16.0); Mean Corpuscular Hemoglobin 21.2 pg (25.0-34.0); Mean Corpuscular Hgb Conc 30.5 g/dL (32.0-36.0); Mean Corpuscular Volume 69.5 fL (80.0-100.0); Mean Platelet Volume 9.5 fL (9.4-12.4); Platelet Count 112 K/uL (130-400); RDW Coefficient of Variation 21.3 % (11.5-14.5); RDW Standard Deviation 50.5 fL (36.4-46.3); Red Blood Count 4.06 M/uL (4.20-5.40); White Blood Count 189.21 K/ul (4.8-10.8)
--- NOTE | 2024-04-27 11:23 | Discharge Summary ---
Date of Service April 27, 2024 Admission HPI Per Admitting Provider Diana is a 69-year-old female with a past medical history of CLL, Sjogren's, ankylosing spondylitis, thyroid cancer, herpes zoster, polyneuropathy, paroxysmal SVT [facility] and undergoing chemotherapy for CLL who presented to the ER with a sore throat, difficulty speaking, difficulty swallowing. She has had a low-grade fever and a temperature of 99.9 at [address] CTsoft tissue neck shows no acute inflammatory change or fluid collections, stable lymphadenopathy compatible with CLL CT-Chest: suspected esophagitis, no other acute changes. +Fevers, chills. Throat culture pending. BC pending. PCT normal. marked leukocytosis consistent with CLL. COVID positive. +diarrhea x2 days. Fevers, chills, malaise. Sore throat. Burning in her stomach worse with 1 episode of emesis which was orange in color, no blood/melena. Past history of thrush 'a long time ago' +cough. +nausea, +poor appetite. Medications do make her nausea worse. Takes PPI + H2 BID takes zofran and phenergan PRN at home +headache +chest discomfort worse when vomiting Medical History: Reviewed Medications: Reviewed Surgical History: Reviewed Family history: Reviewed Allergies: Reviewed Social History: Reviewed Code Status: Full Admission Exam Per Admitting Provider General: A&Ox3. NAD. Cooperative. Appears ill, fatigued HEENT: Atraumatic, normocephalic. Vision/hearin gintact Pulm: Diminished. Symmetrical chest rise. No increased work of breathing. No respiratory distress. Cardiac: RRR, -mrg. Radial pulses intact and symmetrical. Abdominal: Nontender, nondistended, soft. BS present. Sacrum: Palpable hard round mass at right buttock near the sacrum, no overlying warmth/erythema Principal Diagnosis COVID-19 infection in immunocompromised patient CLL Discharge Exam General: Awake, conversant Heart: S1, S2/regular rate and rhythm, no murmur rubs or gallops Lungs: Clear to auscultation bilaterally. Normal effort Abdomen: Soft/nontender/nondistended. No hepatosplenomegaly Extremities: No clubbing/cyanosis. No edema Behavior: Appropriate, cooperative Discharge Data Allergies Allergy/AdvReac Type Severity Reaction Status Date / Time adhesive Allergy Intermediate Skin Verified 04/09/24 11:58 irritation, welts bacitracin Allergy Intermediate Rash, Verified 04/09/24 11:58 swelling, welts bee venom protein (honey bee) Allergy Intermediate Diffuse Verified 04/09/24 11:58 hives, dyspnea bromfenac Allergy Intermediate Eyelid Verified 04/09/24 11:58 swelling, Eye drops xibrom dicyclomine Allergy Intermediate Diffuse Verified 04/09/24 11:58 rash doxycycline Allergy Intermediate Hives Verified 04/09/24 11:58 lamotrigine Allergy Intermediate Welts Verified 04/09/24 11:58 lavender (Lavandula Allergy Intermediate affects Verified 04/09/24 11:58 angustifolia) breathing loteprednol Allergy Intermediate Intense Verified 04/09/24 11:58 eye burning mupirocin Allergy Intermediate Rash Verified 04/09/24 11:58 neomycin Allergy Intermediate Rash, Verified 04/09/24 11:58 swelling, welts polymyxin B Allergy Intermediate Rash, Verified 04/09/24 11:58 swelling, welts pregabalin Allergy Intermediate Hands/feet Verified 04/09/24 11:58 swelling, mouth sores sulfamethoxazole Allergy Intermediate Rash Verified 04/09/24 11:58 tetracycline Allergy Intermediate HIVES Verified 04/09/24 11:58 topiramate Allergy Intermediate Rash Verified 04/09/24 11:58 trimethoprim Allergy Intermediate Rash Verified 04/09/24 11:58 wool Allergy Intermediate Hives Verified 04/09/24 11:58 aspirin AdvReac Intermediate Diffuse Verified 04/09/24 11:58 bruising Bleach (Sodium Hypochlorite) AdvReac Intermediate Breathing Verified 04/09/24 11:58 affected ibuprofen AdvReac Intermediate Diffuse Verified 04/09/24 11:58 bruising trimethobenzamide AdvReac Intermediate Muscle Verified 04/09/24 11:58 contraction PABA Allergy Intermediate Rash Uncoded 04/09/24 11:58 patcholi oil Allergy Intermediate Difficulty Uncoded 04/09/24 11:58 Breathing surgical latesha Allergy Intermediate Redness, Uncoded 04/09/24 11:58 infection from latesha Consultations 04/23/24 16:48 ED Decision to Admit Stat Ordered Studies Chest X-Ray 04/23/24 12:22 XR chest 1V portable HISTORY: 69 years-old Female chest pain COMPARISON: Chest CT January 07, 2024 TECHNIQUE: AP view the chest FINDINGS: Cardiomediastinal and hilar silhouettes are within normal limits. No pneumothorax, pleural effusion or pulmonary edema. Mild patchy retrocardiac left basilar densities. The bones appear grossly intact. IMPRESSION: Mild left basilar densities suggest probable atelectasis. ACT 112: Negative or not required by law. The above report was generated using voice recognition software. It may contain grammatical, syntax or spelling errors. Electronically signed by: Blade Sosa M.D. 04/23/2024 2:[address] 04/23/24 12:24 CT soft tissue neck w con HISTORY: 69 years-old Female trouble swallowing, sore throat dysphagia with difficulty swallowing COMPARISON: Chest CT of same day and also 03/25/2024, CT soft tissue neck January 07, 2024. TECHNIQUE: Multiple axial CT images of the soft tissues of the neck were obtained with IV contrast. A dose lowering technique was used consistent with the principals of ALARA. FINDINGS: The imaged intracranial structures demonstrate no acute abnormality. The vascular structures of the neck are within normal limits. Pathologic lymph nodes of the neck, supraclavicular distributions, axillary chains and mediastinum redemonstrated. Index 1.5 x 1.8 cm right submandibular lymph node on image 205 degrees measured 1.8 x 1.4 cm. Chronic large defects in the nasal septum measuring 3.4 cm. Rightward bowing and spurring of the nasal septum. Moderate mucosal thickening of the paranasal sinuses. Mastoid air cells are clear. Secretions are seen within the airway. No acute inflammatory changes or fluid collections. Unremarkable glottis and subglottic airway. No acute fracture. IMPRESSION: 1. No acute inflammatory changes or fluid collections. 2. Secretions within the airway with moderate paranasal sinus disease. 3. Chronic nasal septal defect. 4. Stable pathologic lymphadenopathy compatible with the patient's clinical diagnosis of CLL. ACT 112: Negative or not required by law. The above report was generated using voice recognition software. It may contain grammatical, syntax or spelling errors. Electronically signed by: Blade Sosa M.D. 04/23/2024 3:[address] 04/23/24 13:[address] WITH CONTRAST CT DOSE: 739.17 mGy.cm HISTORY: Acute chest pain with dysphagia. History of CLL. chest pain, trouble swallowing TECHNIQUE: Multiaxial CT images of the chest were performed following the IV administration of 93 cc of Optiray. A dose lowering technique was utilized adhering to the principles of ALARA. COMPARISON: CT soft tissue neck of same day, a chest CT , January 07, 2024 FINDINGS: Enlarged supraclavicular, axillary and bilateral hilar lymph nodes are similar to CT of January 07, 2024. Index left axillary node on image 78 measures 3.1 x 1.8 cm, previously 3.1 x 1.8 cm. A right supraclavicular lymph node on image 17 measures 2 x 1.5 cm, unchanged . There is no pneumothorax or pleural effusion. There is no pericardial effusion. Mild intralobular septal thickening. No suspicious pulmonary nodules are present. There is no consolidation to suggest pneumonia. The spleen is enlarged. Cholecystectomy with likely postsurgical biliary ductal dilation. Pathologic lymphadenopathy of the upper abdomen most pronounced in the [place] hepatis distribution. Again seen is mild nonspecific wall thickening throughout the esophagus. No acute fracture or destructive bone lesion identified. Osseous structures again appear diffusely heterogeneous. IMPRESSION: 1. No acute intrathoracic abnormality. 2. Mild wall thickening throughout the esophagus redemonstrated which may represent an esophagitis. 3. No significant change of the pathologic lymphadenopathy of the neck, chest and upper abdomen compared to the January 07, 2024 study compatible with the patient's clinical diagnosis of CLL. 4. Marked splenomegaly redemonstrated. ACT 112: Negative or not required by law. Electronically signed by: Blade Sosa M.D. 04/23/2024 3:24 PM 04/23/24 12:24 CT soft tissue neck w con Stat 04/23/24 13:55 CT chest diagnostic w con Stat Hospital Course (1) COVID: (2) CLL (chronic lymphocytic leukemia): (3) Hypothyroidism: Lani Ortiz is a 69-year-old female with a past medical history of CLL, Sjogren's, ankylosing spondylitis, thyroid cancer, herpes zoster, polyneuropathy, paroxysmal SVT [facility] and undergoing chemotherapy for CLL who presented to the ER with a sore throat, difficulty speaking, difficulty swallowing. She has had a low-grade fever and a temperature of 99.9 at home. She is found to be COVID-positive, but due to a additional granulocytic expansion and immunocompromise recommended for empiric coverage and admission as inpatient until cultures were negative for at least 24 hours. COVID With fevers, pharyngitis, fatigue No hypoxia Supportive care Due to immune compromise, fever, and granulocytic expansion patient was recommended for observation for potential superinfection and treatment with empiric antibiotics pending blood culture results. Chest x-ray does show left basilar densities ?atelectasis. CT chest without evidence of consolidation -Discontinued initially started vancomycin and cefepime - procal nl Sputum culture pending Blood cultures NGTD Monitor closely for secondary sinus infection. Patient has had issues with this in the past and is immune compromised with CLL, and if recurrent was recommended to consider IVIG infusions Monospot negative Throat culture normal lauren Esophagitis, gastritis Patient has had some nausea/vomiting and stomach irritation which is worsened by her medications. No blood in her emesis tends to be yellowish/orange in color Does have a history of thrush no overt thrush spots are seen. She is at risk for this as she is on chronic PPI therapy, twice daily H2 therapy, and is immune suppressed with her malignancy Was treated with GI cocktail, and also trial swish and swallow nystatin Does have some intermittent burning chest pain likely GI. Troponin is normal. CTchest with contrast was not PE protocol but did not show obvious evidence of PE and she is not hypoxic/tachycardic CLL White count 154, improved from prior. She is under treatment with CCP Initial potassium was read as 6.0. This is not accurate. Potassium must be drawn off of a non-spun tube or non-heparinized tube or cells will lyse and artificially raise potassium. There is no true indication for hyperkalemia treatment at this time Brukinsa temporarily held in the setting of acute infection Buttock mass Small palpable mass at the right buttock near the sacrum is present, patient was pending removal of this with general surgery. There is no overlying warmth/erythema but is very tender to palpation. Did have a CT and does not appear to be an abscess on prior imaging review. Likely related to her lymphoma and does not have any signs of overlying infection on exam. Continue to mon itor, if she show signs of secondary bacterial infection and no other source is identified could revisit this at that time Chronic stable issues: History of paroxysmal SVT: Continue beta-tristan Hypothyroidism: Continue Synthroid 04/26: Discussed with family at bedside. Ready for discharge today Total Time Total Time Spent Total Time Spent (In Minutes): 35 Discharge Plan Discharge Items Patient Disposition: Home - Self-Care Reason For Visit: COVID Discharge Diagnosis: COVID-19 infection in immunocompromised patient CLL Condition on Discharge: Fair Activity: Resume your previous activity Non-emergency contact: Primary Care Provider Call non-emergency contact if: you have any medication questions and your symptoms worsen Follow-up/Referrals: PCP,NO [Primary Care Provider] - Diet: Heart Healthy Addtl Attending Provider Instructions: Advised to follow-up with PCP in 1 week Advised to follow-up with oncologist as previously planned Pending Studies at Discharge: No Stand-Alone Forms: [employer] Medications and DC Order Prescriptions: Continued sumatriptan succinate [Imitrex] 100 mg tablet 100 mg PO DAILY MDD 4 TABS/24 HOURS PRN (Reason: migraine headache) Qty: 9 2RF Rx Instructions: MAY REPEAT IF CONTINUES FOR 1.5 HOURS. ketorolac 10 mg tablet 10 mg PO TID 7 Days Qty: 21 5RF Rx Instructions: Takes tid x one week per month- other 3 weeks takes relafen pkgdttmkyg-nelkipleylesu-lmyz 50-325-40 mg tablet 1 tab PO TID PRN (Reason: TENSION HEADACHES) Qty: 90 2RF ondansetron HCl 8 mg tablet 8 mg PO TID PRN (Reason: NAUSEA/VOMITING) Qty: 90 3RF meclizine 25 mg tablet 25 mg PO QID 30 Days Qty: 120 5RF cyclobenzaprine 10 mg tablet 10 mg PO TID 90 Days Qty: 270 3RF Rx Instructions: Medication needed muscle spasms from chronic pain: Cervical and lumbar spine spondylosis, as well as chronic lymphocytic leukemia and muscle spasms from chemotherapy. Also Fibromyalgia, and ankylosing spondylitis morphine 30 mg tablet extended release 30 mg PO BID PRN (Reason: Pain) Qty: 60 0RF oxycodone 20 mg tablet 20 mg PO Q4H Qty: 90 0RF promethazine 25 mg tablet 25 mg PO Q4H PRN (Reason: nausea and vomiting) 30 Days Qty: 60 5RF Rx Instructions: Give patient 60 pills to last one month. pantoprazole 40 mg tablet,delayed release (DR/EC) 40 mg PO QAM Qty: 180 pilocarpine HCl [Salagen (pilocarpine)] 5 mg tablet 5 mg PO QID levothyroxine [Synthroid] 175 mcg tablet 175 mcg PO DAILYBB Rx Instructions: "BRAND NECESSARY' Ajovy Syringe 225 mg/1.5 mL syringe 225 mg subcut MONTHLY Qty: 1.5 11RF Patient Comments: on hold at present 09/22/23 nabumetone 750 mg tablet 750 mg PO BID Qty: 60 5RF Rx Instructions: TAKES FOR 3 WEEKS, THEN 1 WEEK TORADOL, THEN REPEAT SCHEDULE ofloxacin [Ocuflox] 0.3 % drops 1 drops OPB TID furosemide 40 mg tablet 60 mg PO QAM PRN (Reason: swelling) Qty: 20 1RF nitroglycerin 400 mcg/spray spray,non-aerosol See Rx Instructions .ROUTE .COMPLEX Qty: 4.9 1RF Dose Instruction: USE 1 SPRAY SUBLINGUALLY EVERY 5 MINUTES NEEDED FOR CHEST PAIN Rx Instructions: USE 1 SPRAY SUBLINGUALLY EVERY 5 MINUTES NEEDED FOR CHEST PAIN metoprolol tartrate 50 mg tablet 50 mg PO TID PRN (Reason: tachycardia) Qty: 90 3RF Patient Comments: pt takes med for prn tachycardia not for hypertension. potassium chloride 10 mEq capsule, extended release 20 meq PO BID Qty: 360 3RF Rx Instructions: 03/25/24 THIS MED CURRENTLY ON HOLD ketorolac [Acular] 0.5 % drops 1 drp OPB TID olopatadine 0.1 % drops 1 drp OPB BID famotidine [Pepcid AC] 20 mg Tablet 20 mg PO BID PRN (Reason: Heartburn) timolol maleate [Istalol] 0.5 % drops, once daily 1 drp OPHTHALMIC (EYE) BID Rx Instructions: one drop in each eye, twice per day. cetirizine [Zyrtec] 10 mg Tablet 10 mg PO QAM diphenhydramine HCl [Benadryl] 25 mg Capsule 25 mg PO DAILY PRN (Reason: Allergy Symptoms) pseudoephedrine HCl [Sudafed] 30 mg Tablet 30 mg PO DIRECTED PRN (Reason: Congestion) oxymetazoline [Afrin (oxymetazoline)] 0.05 % [place],Non-Aerosol 2 spray INTRANASAL UD PRN (Reason: Congestion) Rx Instructions: q4-6 h guaifenesin [Mucinex] 600 mg Tablet Extended Release 12hr 600 mg PO Q12H PRN (Reason: Congestion) Magic Swizzle 1 dose PO DIRECTED PRN (Reason: MOUTH SORE FROM CHEMO) acyclovir 400 mg tablet 400 mg PO TID Patient Comments: Rx Instructions: TAKES WHILE ON VENCLEXTA. Refresh Optive Advanced (PF) 0.5-1-0.5 % Dropperette 1 drp OPHTHALMIC (EYE) DIRECTED PRN (Reason: Dry Eyes) metoprolol succinate 100 mg tablet extended release 24 hr 100 - 150 mg PO UD Rx Instructions: TAKES 150 MG QAM, THEN 100 MG QPM. orally, AND 50MG TID PRN loperamide 2 mg Capsule 2 mg PO Q6H PRN (Reason: Diarrhea) Rx Instructions: OK to take per Dr Hubbard zolpidem [Ambien] 10 mg tablet 10 mg PO HS PRN (Reason: Sleep) Rx Instructions: Take 1 hour before bedtime. Brukinsa 80 mg Capsule 160 mg PO QAM Rx Instructions: TWO CAPSULES EVERY MORNING triamcinolone acetonide [Nasacort] 55 mcg Aerosol,[place] 1 spray INTRANASAL AMPM PRN (Reason: Allergy Symptoms) Rx Instructions: administer into each nostril Discharge Orders: Discharge Order (Routine); Ordered 04/27/24 Ordered By: Blayne Monaco/Other Patient Handouts: ED Hyponatremia Admission Data Admit Date/Time: 04/23/24 16:59 Attending Provider: Blayne Burns Admit Provider: Yariel Hatfield Primary Care Provider: PCP,NO Other Providers: Yariel Hatfield Other Interventions: Discharge Summary Assessment (RN) Last Done: 04/27/24 12:07
[2024-04-27 12:09] VITALS: BP 112/64
== END 2024-04-27 12:50 | disposition home or self-care (01) | DRG 178 ==
LOC: ED 11:43 → 2E 16:59 → SUATTDRO 16:59 → 2E 18:04

== ENCOUNTER 2024-05-16 18:43 | Inpatient (IN) ==
--- OUTSIDE RECORDS SUMMARY | 2024-05-16 18:50 | External Medical Summary | Summary of Care ---
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 Active Betamethasone Dipropionate 0.05 % External Ointment Start: 02/04/23 16:03:00 EDT, 1 appl, topical, bid, Disp# 45 g, Refills: 3, to hands BID, Pharmacy: [facility] 3 Active Clobetasol Propionate 0.05 % External Ointment (Temovate) Start: 02/04/23 13:55:00 EDT, 1 appl, topical, Daily, Disp# 45 g, Refills: 3, apply to hands qhs, Pharmacy: [facility] 3 Active Lomotil 2.5-0.025 MG [...] before bedtime. 360 Tablet 3 4 Active Amoxicillin 500 MG Oral Capsule (Amoxil) Take 1 Capsule by mouth in the morning and 1 Capsule at noon and 1 Capsule before bedtime. 30 Capsule 5 Active documented as of this encounter (statuses as of 05/07/2024) Active Problems Problem Noted Date Diagnosed Date [...] as of this encounter (statuses as of 05/07/2024) Resolved Problems Problem Noted Date Diagnosed Date Resolved Date Nasal septal deformity 08/14/201804/24 documented as of this encounter (statuses as of 05/07/2024) Social History Tobacco Use Types Packs/Day Years [...] encounter Miscellaneous Notes * Telephone Encounter - Chris Benson DO - 05/07/2024 1:39 PM EST Amoxicillin reordered per request Chris Benson DO 05/07/2024 1:39 PM documented in this encounter Plan of Treatment Upcoming Encounters Date Type Department Care Team (Latest Contact Info) Description 05/20/2024 11:30 AM EST Telemedicine Gastroenterology, [facility] [address] [place] [address] Natalie Ratliff CRNP [address] [place] [address] 09/13/2024 2:30 PM EDT Hospital Encounter ENDO OSSC, Endoscopy Room [facility] [address] [place] [phone] Serena Soto DO [address] [place] [address] 09/13/2024 2:30 PM EDT - 09/13/2024 3:00 PM EDT Surgery ENDO OSS, Endoscopy Room [facility] [address] [place] [id number] Serena Soto DO [address] [place] [address] COLONOSCOPY FLEXIBLE PROXIMAL DIAGNOSTIC 09/22/2024 10:40 AM EDT Office Visit Rheumatology [facility] [address] [place] [phone] Cyrus Ferreira MD [address] [facility] [place] [address] Scheduled Procedures Name Priority Associated Diagnoses Date/Ti [...]
--- OUTSIDE RECORDS SUMMARY | 2024-05-16 18:50 | External Medical Summary | Summary of Care ---
Author Name Unknown Organization [facility] Address [address] [place] [address] Phone [phone] Care Team Providers Care Gi Technician Name Role Phone Unavailable Primary Care Provider Unavailabl e Reason for Visit * Reason Onset Date Comments Medication Refill 02/02/2024 Encounter Details Date Type Department Care Team (Late st Contact Info) Description 02/02/2024 Refill Ophthalmology, [facility] [address] [place] [address] Chris Benson T, DO [address] [place] [address] Allergies Active Allergy Reactions Criticality Noted Date [...] hypoallergenic earrings Certain perfumes & lotions, certain supervisor ovens and sprays Ibuprofen 06/16/2008 bruising Lamotrigine Rash [...] as of this encounter (statuses as of 04/30/2024) Medications FLEXERIL 10 MG PO TABS 1 [...] 0.4 MG/SPRAY Translingual Solution (Nitrolingual) Place 1 [place] under the tongue as needed for Pain, Chest. Active Betamethasone Dipropionate 0.05 % External Ointment Start: 02/04/23 16:03:00 EDT, 1 appl, topical, bid, Disp# 45 g, Refills: 3, to hands BID, Pharmacy: [facility] 3 Active Clobetasol Propionate 0.05 % External Ointment (Temovate) Start: 02/04/23 13:55:00 EDT, 1 appl, topical, Daily, Disp# 45 g, Refills: 3, apply to hands qhs, Pharmacy: [facility] 3 Active Lomotil 2.5-0.025 MG Oral [...] as of this encounter (statuses as of 04/30/2024) Active Problems Problem Noted Date Diagnosed Date [...] as of this encounter (statuses as of 04/30/2024) Resolved Problems Problem Noted Date Diagnosed Date Resolved Date Nasal septal deformity 08/14/201804/24 documented as of this encounter (statuses as of 04/30/2024) Social History Tobacco Use Types Packs/Day Years [...] encounter Miscellaneous Notes * Telephone Encounter - Monica Ramey PA-C - 02/02/2024 2:19 PM EDT Pending Prescriptions: Disp Refills Vancomycin 50 mg/mL ophthalmic solution 15 mL 0 Sig: Instill 1 Drop into both eyes in the morning and 1 Drop at noon and 1 Drop in the evening and 1 Drop before bedtime. * Telephone Encounter - Rubia Corrales [employer] - 02/02/2024 1:45 PM EDT Pending Prescriptions: Disp Refills Vancomycin 50 mg/mL ophthalmic solution 15 mL 0 Sig: Instill 1 Drop into both eyes in the morning and 1 Drop at noon and 1 Drop in the evening and 1 Drop before bedtime. * Telephone Encounter - Rubia Corrales [employer] - 02/02/2024 1:17 PM EDT Pending Prescriptions: Disp Refills Vancomycin 50 mg/mL ophthalmic solution 15 mL 0 Sig: Instill 1 Drop into both eyes in the morning and 1 Drop at noon and 1 Drop in the evening and 1 Drop before bedtime. * Telephone Encounter - Brea Garcia PHARM Tech - 02/02/2024 1:11 PM EDT [facility] is calling because pt's prescription for Vancomycin was sent with unclear directions stating " Instill 1 Drop into both eyes in the morning and 1 Drop at noon and 1 Drop in theevening and 1 Drop before bedtime. Do all this for 14 days.". However, the pharmacist stated that once they compound this medication, it only lasts for 7 days. Please clarify the directions for this medication and send a new prescription to [facility] [place] call [phone]. Thank you, Juan Garcia Executive Producer [employer] [facility] 02/02/2024,1:11 PM documented in this encounter Plan of Treatment Upcoming Encounters Date Type Department Care Team (Latest Contact Info) Description 05/20/2024 11:30 AM EST Telemedicine Gastroenterology, [facility] [address] [place] [address] Natalie Ratliff CRNP [address] [place] [address] 09/13/2024 2:30 PM EDT Hospital Encounter ENDO OSS, Endoscopy Room [facility] [address] [place] [phone] Serena Soto, [address] [place] [address] 09/13/2024 2:30 PM EDT - 09/13/2024 3:00 PM EDT Surgery ENDO OSS, Endoscopy Room [facility] [address] [place] [phone] Serena Soto, [address] [place] [address] COLONOSCOPY FLEXIBLE PROXIMAL DIAGNOSTIC 09/22/2024 10:40 AM EDT Office Visit Rheumatology [facility] [address] [place] [phone] Cyrus Ferreira MD [address] [facility] [place] [address] Scheduled Procedures Name Priority Associated Diagnoses Date/Ti [...]
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
[2024-05-16 19:51] LABS: Hematocrit (blood only) 25.3 % (37.0-47.0); Hemoglobin 7.6 g/dl (12.0-16.0); Mean Corpuscular Hemoglobin 21.2 pg (25.0-34.0); Mean Corpuscular Volume 70.5 fL (80.0-100.0); Mean Platelet Volume 9.4 fL (9.4-12.4); Platelet Count 120 K/uL (130-400); RDW Coefficient of Variation 20.9 % (11.5-14.5); RDW Standard Deviation 49.1 fL (36.4-46.3); Red Blood Count 3.59 M/uL (4.20-5.40); White Blood Count 224.73 K/ul (4.8-10.8)
[2024-05-16] MEDS: guaiFENesin 600 MG TABCR PO STA (19:58)
[2024-05-16] MEDS: SODIUM CHLORIDE 0.65% NA SOLN 45 ML (OCEAN) ONE (19:59)
[2024-05-16] MEDS: dexAMETHasone**PF** 10 MG/ML VIAL IV ONE (20:02)
[2024-05-16] MEDS: ACETAMINOPHEN 1,000 MG/100 ML VIAL IV STA (20:02)
[2024-05-16] MEDS: MoRPHine SULFATE 10 MG/ML CARP/VIAL IV STA (20:02)
[2024-05-16 20:07] LABS: Albumin Globulin Ratio 2.2 (0.9-2); Albumin Level 3.8 gm/dl (3.4-5.0); BUN Creatinine Ratio 14.3 (10-20); Bilirubin,Total 1.3 mg/dl (0.2-1.0); Calcium 7.8 mg/dl (8.6-10.3); Creatinine Clr Calc Pharmacy 54.9 ml/min; Globulin 1.7 gm/dl (2.5-4.0); Phosphorus 3.8 mg/dl (2.5-4.9); Potassium 3.1 mmol/L (3.5-5.1); Total Protein 5.5 gm/dl (6.0-8.3)
[2024-05-16 20:14] LABS: Basophils # (auto) 0.83 K/uL (0.00-0.20); Basophils % (auto) 0.4 %; Eosinophils # (auto) 0.06 K/uL (0.00-0.50); Immature Granulocytes # (auto) 0.75 K/uL (0.01-0.20); Immature Granulocytes % (auto) 0.3 %; Lymphocytes # (auto) 197.35 K/uL (1.20-3.40); Lymphocytes % (auto) 87.8 %; Monocytes # (auto) 18.48 K/uL (0.11-0.59); Monocytes % (auto) 8.2 %; Neutrophils # (auto) 7.26 K/uL (1.40-6.50); Neutrophils % (auto) 3.3 %; Smudge Cells Present; Tear Drop Cells 1+
[2024-05-16 20:15] LABS: Prothrombin Time 11.1 Seconds (9.0-12.0)
[2024-05-16 20:21] LABS: Thyroid Stimulating Hormone 4.821 uIu/ml (0.300-4.500)
[2024-05-16 20:31] LABS: Adenovirus PCR Not Detected (NotDetected); Bordetella parapertussis PCR Not Detected (NotDetected); Bordetella pertussis PCR Not Detected (NotDetected); Chlamydia pneumoniae PCR Not Detected (NotDetected); Coronavirus 229E PCR Not Detected (NotDetected); Coronavirus CoV-2 (COVID19)PCR Not Detected (NotDetected); Coronavirus HKU1 PCR Not Detected (NotDetected); Coronavirus NL63 PCR Not Detected (NotDetected); Coronavirus OC43PCR Not Detected (NotDetected); Human Metapneumovirus PCR Not Detected (NotDetected); Influenza A PCR Not Detected (NotDetected); Influenza B PCR Not Detected (NotDetected); Mycoplasma pneumoniae PCR Not Detected (NotDetected); Parainfluenza Virus 1 PCR Not Detected (NotDetected); Parainfluenza Virus 2 PCR Not Detected (NotDetected); Parainfluenza Virus 3 PCR Not Detected (NotDetected); Parainfluenza Virus 4 PCR Not Detected (NotDetected); Respiratory Syncytial VirusPCR Not Detected (NotDetected); Rhinovirus/Enterovirus PCR Not Detected (NotDetected)
[2024-05-16] MEDS: SODIUM CHLORIDE 0.9% 500 ML IV ONE (20:38)
--- NOTE | 2024-05-16 21:03 | XRay Report ---
Exam(s): XR CXR 1 VIEW EXAM: XR Chest, 1 View CLINICAL HISTORY: Chest pain, nonspecific. TECHNIQUE: Frontal view of the chest. COMPARISON: CT chest with contrast 04/23/2024 FINDINGS: Lungs: Slightly coarse interstitial markings. No focal airspace consolidation. No radiographic evidence for florid CHF. Pleural space: Unremarkable. No pneumothorax. No large pleural effusion. Heart: The cardiac silhouette is within normal limits, accounting for portable technique. Mediastinum: The mediastinal contours are within normal limits, accounting for obliquity. No tracheal deviation. Bones/joints: Unremarkable. No acute fracture. Lymph nodes: The bilateral axillary lymphadenopathy on the previous CT examination is not clearly evident radiographically. IMPRESSION: No focal consolidation or acute cardiopulmonary process identified. Electronically signed by: Jalen Mistry MD 05/16/24 21:02 PM
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
[2024-05-16] MEDS: POTASSIUM CHLORIDE / WTR 10 MEQ/100 ML PLCT IV SCH (21:48)
[2024-05-16 22:06] LABS: T4 Free Thyroxine 1.03 ng/dl (0.61-1.60)
[2024-05-16] MEDS ORDERED: MoRPHine SULFATE 4 MG/ML 1 ML CARP\\VIAL IV PRN (22:58)
[2024-05-17] MEDS: OXYMETAZOLINE 0.05% 30 ML BTL STA (00:38)
[2024-05-17] MEDS: CALCIUM CARBONATE 500 MG CHEWABLE TAB PO STA (00:40)
[2024-05-17] MEDS: SODIUM CHLORIDE 0.9% 1,000 ML IV STA (00:40)
[2024-05-17] MEDS: POTASSIUM CHLORIDE CRTAB 20 MEQ TABCR PO STA (00:42)
[2024-05-17] MEDS: PSEUDOEPHEDRINE HCL 30 MG TAB PO PRN (00:45)
[2024-05-17] MEDS: MoRPHine SULFATE 2 MG/ML CARP IV PRN (01:23)
[2024-05-17] MEDS ORDERED: MELATONIN 3 MG TAB PO PRN (01:34)
[2024-05-17] MEDS ORDERED: METOPROLOL TARTRATE 50 MG TAB PO PRN (01:34)
[2024-05-17] MEDS ORDERED: MAGNESIUM HYDROXIDE SUSP 30 ML UDC PO PRN (01:34)
[2024-05-17] MEDS ORDERED: POLYETHYLENE (MIRALAX) 17 GM PACK PO PRN (01:34)
[2024-05-17] MEDS ORDERED: SUMAtriptan succinate 100 MG TAB PO PRN (01:34)
[2024-05-17] MEDS ORDERED: PROMETHAZINE HCL 25 MG TAB PO PRN (01:34)
[2024-05-17] MEDS ORDERED: FIRST - Mouthwash BLM 5 ML UDP PO PRN (01:56)
[2024-05-17] MEDS ORDERED: ONDANSETRON 4 MG OD TAB PO PRN (01:58)
[2024-05-17] MEDS ORDERED: ZOLPIDEM TARTRATE 5 MG TAB PO PRN (02:03)
[2024-05-17] MEDS ORDERED: NALOXONE HCL 0.4 MG/1 ML VIAL/CARP IV PRN (02:22)
[2024-05-17 02:54] LABS: Appearance Urine Clear (Clear); Bacteria Urine Automated None Seen (None Seen); Bilirubin Urine Negative (Negative); Blood Urine Negative (Negative); Cast Urine Automated 0-2 /lpf (0-2); Color Urine Yellow; Epithelial Cell Urine Auto 0-2 /hpf (0-2); Glucose Urine UA Negative (Negative); Ketones Urine Negative (Negative); Leukocyte Esterase Urine Trace (Negative); Nitrite Urine Negative (Negative); Protein Urine Negative (Negative); RBC Urine Automated 0-2 /hpf (0-2); Specific Gravity Urine 1.016 (1.000-1.030); Urobilinogen Urine Negative (Negative); WBC Urine Automated 0-5 /hpf (0-5); pH Urine 6.5 (4.5-7.5)
[2024-05-17] MEDS: HYDROmorphone INJ 0.5 MG/0.5 ML SYR IV PRN ×2 (03:14→08:14)
[2024-05-17] MEDS ORDERED: ARTIFICIAL TEARS OP PRN (03:44)
[2024-05-17] MEDS: LEVOTHYROXINE SODIUM 175 MCG TABLET PO SCH (04:40)
[2024-05-17] MEDS: BUTALBITAL/ACETAMIN/CAFFEINE TAB PO PRN (04:40)
[2024-05-17 06:45] LABS: Platelet Count 102 K/uL (130-400); White Blood Count 211.34 K/ul (4.8-10.8)
[2024-05-17 06:46] LABS: Mean Corpuscular Hemoglobin 21.1 pg (25.0-34.0); Mean Corpuscular Hgb Conc 29.6 g/dL (32.0-36.0); Mean Corpuscular Volume 71.1 fL (80.0-100.0); RDW Coefficient of Variation 20.6 % (11.5-14.5); RDW Standard Deviation 49.1 fL (36.4-46.3); Red Blood Count 3.18 M/uL (4.20-5.40)
[2024-05-17 06:49] LABS: Anion Gap 3 (3-11); BUN Creatinine Ratio 15.3 (10-20); Blood Urea Nitrogen 11 mg/dl (6-23); Calcium 7.9 mg/dl (8.6-10.3); Carbon Dioxide 28 mmol/L (21-32); Chloride 100 mmol/L (98-107); Glucose 117 mg/dl (70-99(Fasting)); Hematocrit (blood only) 22.6 % (37.0-47.0); Hemoglobin 6.7 g/dl (12.0-16.0); Sodium 131 mmol/L (136-145)
[2024-05-17] MEDS: NITROGLYCERIN SL 0.4 MG/TAB TAB SL PRN (07:17)
[2024-05-17] MEDS ORDERED: guaiFENesin 600 MG TABCR PO SCH (09:00)
[2024-05-17] MEDS: KETOROLAC 0.5% OP SOLN 5 ML BTL OPB SCH (09:02)
[2024-05-17] MEDS: CYCLOBENZAPRINE HCL 10 MG TAB PO SCH (09:02)
[2024-05-17] MEDS: MECLIZINE HCL 25 MG TAB PO SCH (09:02)
[2024-05-17] MEDS: PILOCARPINE HCL 5 MG TABLET PO SCH (09:02)
[2024-05-17] MEDS: ACYCLOVIR 400 MG TAB PO SCH (09:02)
[2024-05-17] MEDS: NABUMETONE 500 MG TABLET PO SCH (09:03)
[2024-05-17] MEDS: CETIRIZINE HCL 10 MG TABLET PO SCH (09:05)
[2024-05-17] MEDS: PANTOprazole 40 MG TAB PO SCH (09:05)
[2024-05-17] MEDS: CHOLESTYRAMINE LIGHT 4 GM PKT PO SCH (09:09)
--- NOTE | 2024-05-17 09:12 | Ultrasound Report ---
LEFT LOWER EXTREMITY VENOUS DOPPLER HISTORY: Acute pain and swelling of the left lower leg LLE swelling, h/o DVT, CA COMPARISON STUDY: 08/24/2023 FINDINGS: There is normal compressibility, flow, and augmentation within the left lower extremity cheikh p venous system. IMPRESSION: No DVT within the left lower extremity. ACT 112: Negative or not required by law. Electronically signed by: Blade Sosa M.D. 05/17/2024 9:11 AM
[2024-05-17] MEDS: POTASSIUM CHLORIDE CRTAB 20 MEQ TABCR PO SCH (09:13)
[2024-05-17] MEDS: METOPROLOL SUCC 50MG EXT REL TAB PO SCH ×2 (09:13→20:50)
--- NOTE | 2024-05-17 09:37 | Hospitalist Progress Note ---
Date of Service May 17, 2024 Assessment & Plan (1) Pain, generalized: (2) Gastroenteritis: (3) Hyponatremia: (4) Hypokalemia: (5) Hypocalcemia: Plan 69-year-old female PMHx CLL, ankylosing spondylitis, Sjogren syndrome, Hx thyroid cancer, fibromyalgia, dyslipidemia, prediabetes, hypothyroidism, history of PE/DVT (2005; off Coumadin in 2006), and UC presenting via EMS from home for complaints of bilateral knee swelling and pain as well as pain in her neck and shoulders. Patient is currently undergoing chemotherapy, Brukinsa. 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 No recent abx use. Stool Biofire and C.diff pending Continue cholestyramine 4 g po BID; Zofran as needed N/V URI symptoms - procal negative, respiratory biofire negative, CXR without acute findings. Continue saline nasal spray; Ordered Afrin, Mucinex, pseudoephedrine prn #Acute on chronic pain Home regimen includes ketorolac, morphine, oxycodone. Reports follows with pain management and neurology for her pain. Offered/encourage pallaitive consult but pt declined Pain most at level of buttocks - waffle cushion ordered #CLL/Anemia Follows with [facility] (Dr. Nuñez - notified of admission), margo on Brukinsa (started Decemeber). Has been requiring transfusions q2-3 weeks. Most recent transfusions 04/08/24 & 04/25/2024 Hgb 6.7 - transfuse 2 units PRBCs, pt reports normally pretreats with IV benadryl, zofran and tylenol Check fecal occult WBC 211, which is down trending from admission. Continue to monitor fever curve, await stool studies. 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 Hx of DVT LLE Doppler negative for DVT Lasix held with hypovolemia. #Electrolyte abnormalities- Hyponatremia/hypokalemia/hypocalcemia Patient recieved 1 K-rider, refusing further potassium repletion until home me dication arrives Hyponatremia is chronic - asymptomatic. Hypocalcemia is also chronic but improving. #SVT- Metoprolol #Hypothyroidism- Synthroid; TSH slighly elevated, but T4 normal. No change to current dose #Insomnia- Zolpidem #Migraines/tension headache- Sumatriptan #GERD- Pantoprazole, famotidine Dispo: continued inpatient stay VTE prophylaxis: SCDs Admission and Anticipated Discharge Date Admission Date: May 16, 2024 Selene Ortiz is seen lying in bed, no family present at bedside. Reports swelling in her legs that started about 3 days ago, along with skin changes on the right side of her body. Starting overnight 05/15 she had mucous-bloody stools that quickly turned to diarrhea. Blood did not continue with the diarrhea. She took 4 immodium with the last dose being 05/16 at 10am and has not had further diarrhea. She has chronic pain in multiple areas of her body including, chest, knee, head, buttock among others. She declined a palliative care consult, states she follows with pain management and Dr. Driscoll manages other components of her pain. Having difficulty with sitting on her coccyx because of an enlagred lymph node. Chronic left knee pain - needs surgery but cant have it because of her cancer progression. Gets steroid injections every 90 days to help, but missed her April injection due to hospitlization. Reports stage 4 cancer x2 - this is her 4th chemo in 12 months and really hoping that it works. Review of Systems Review of Systems: All systems reviewed & are unremarkable except as noted in Subjective Physical Exam Physical Exam: General: NAD, VS as above, appears ill HEENT: MM dry Resp: normal respiratory effort, lungs clear to auscultation CV: RRR, no murmur, chest wall tender to palpation generalized tenderness. Extremities: Moves all extremities, 1+ pitting edema, LE. Escoriations to right leg and shoulder. No weeping. Neuro: A&O x3, Results & Data Results & Data Vital Signs (Past 12 Hours) Vital Signs Temp Pulse Pulse Pulse Resp BP BP 05/17/24 08:59 98.4 F 76 16 95/52 L 05/17/24 07:58 05/17/24 07:39 72 18 105/58 L 05/17/24 07:30 73 14 112/57 L 05/17/24 07:07 71 05/17/24 07:00 69 17 118/56 L 05/17/24 06:56 67 20 105/55 L 05/17/24 05:28 81 29 H 131/67 05/17/24 03:04 78 20 111/57 L 05/17/24 02:00 78 20 119/58 L 05/17/24 01:30 77 13 114/62 05/17/24 01:00 76 18 121/60 05/17/24 00:00 76 16 116/63 05/16/24 23:10 76 05/16/24 23:00 77 18 123/61 05/16/24 22:30 76 14 123/67 05/16/24 22:00 79 17 119/61 Pulse Ox O2 Del Method 05/17/24 08:59 94 Room Air 05/17/24 07:58 Room Air 05/17/24 07:39 99 Room Air 05/17/24 07:30 100 Room Air 05/17/24 07:07 05/17/24 07:00 100 Room Air 05/17/24 06:56 95 Room Air 05/17/24 05:28 100 Room Air 05/17/24 03:04 96 Room Air 05/17/24 02:00 93 Room Air 05/17/24 01:30 92 Room Air 05/17/24 01:00 92 Room Air 05/17/24 00:00 93 Room Air 05/16/24 23:10 05/16/24 23:00 96 Room Air 05/16/24 22:30 95 Room Air 05/16/24 22:00 97 Room Air Laboratory Results cbc, chemistry and urine reviewed biofire reviewed Diagnostic Findings cxr reviewed venous Doppler reviewed PG Care Time/CCT Total # of Minutes Spent Total Time Spent with Patient: Total time spent is greater than 50% in coordination of care (as documented) at patient's floor/unit and/or counseling patient: Coding Level of Care Code 65992 SUB INP/OBS CARE 3/50MIN Diagnoses Pain, generalized R52 Gastroenteritis K52.9 Hyponatremia E87.1 Hypokalemia E87.6 Hypocalcemia E83.51
[2024-05-17] MEDS ORDERED: SODIUM CHLORIDE 0.9% 100 ML IV PRN (09:40)
[2024-05-17] MEDS ORDERED: SODIUM CHLORIDE 0.9% 50 ML IV PRN (09:40)
[2024-05-17] MEDS: diphenhydrAMINE 50 MG/ML VIAL IV ONE (10:17)
[2024-05-17] MEDS: ACETAMINOPHEN 1,000 MG/100 ML VIAL IV PRN (10:21)
[2024-05-17] MEDS: ONDANSETRON INJ 2 MG/ML 2 ML VIAL IV PRN (10:41)
[2024-05-17] MEDS: ZANUBRUTINIB 80 MG PO SCH (13:06)
[2024-05-17 14:33] LABS: Hematocrit (blood only) 24.6 % (37.0-47.0); Hemoglobin 7.5 g/dl (12.0-16.0)
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
[2024-05-17] MEDS: guaiFENesin 600 MG TABCR PO PRN (17:49)
[2024-05-17 18:05] LABS: Folate (Folic Acid),Ser orPlas 7.2 ng/ml (>5.38)
[2024-05-17 18:31] LABS: Ferritin 314.9 ng/ml (8-388)
[2024-05-17 19:31] LABS: Hematocrit (blood only) 28.4 % (37.0-47.0); Hemoglobin 8.9 g/dl (12.0-16.0); Reticulocyte % 1.2 % (0.50-2.00); Reticulocytes # 0.05 10^6/uL (0.020-0.100)
[2024-05-18 07:16] LABS: Hematocrit (blood only) 29.6 % (37.0-47.0); Hemoglobin 9.2 g/dl (12.0-16.0); Mean Corpuscular Hemoglobin 22.8 pg (25.0-34.0); Mean Corpuscular Hgb Conc 31.1 g/dL (32.0-36.0); Mean Corpuscular Volume 73.3 fL (80.0-100.0); RDW Coefficient of Variation 20.3 % (11.5-14.5); RDW Standard Deviation 51.2 fL (36.4-46.3); Red Blood Count 4.04 M/uL (4.20-5.40); White Blood Count 230.15 K/ul (4.8-10.8)
[2024-05-18 07:43] LABS: Mean Platelet Volume 9.6 fL (9.4-12.4); Platelet Count 87 K/uL (130-400); Platelet Estimate Decreased (Normal)
[2024-05-18 08:22] LABS: BUN Creatinine Ratio 15.1 (10-20); Calcium 7.6 mg/dl (8.6-10.3); Creatinine Clr Calc Pharmacy 63.2 ml/min
[2024-05-18] MEDS ORDERED: ZANUBRUTINIB 80 MG CAP PO SCH (09:00)
[2024-05-18] MEDS ORDERED: FAMOTIDINE 20 MG TAB PO PRN (10:57)
[2024-05-18] MEDS: MoRPHine SULFATE CR 15 MG TABCR PO SCH (11:21)
[2024-05-18] MEDS: OFLOXACIN 0.3% 75 DROPS/5 ML BTL OPB SCH (13:40)
[2024-05-18] MEDS: oxyCODONE HCL IR 5 MG TAB (IMMEDIATE RELEASE) PO PRN (13:44)
--- NOTE | 2024-05-18 14:20 | Hospitalist Progress Note ---
Date of Service May 18, 2024 Assessment & Plan (1) Pain, generalized: (2) Gastroenteritis: (3) Hyponatremia: (4) Hypokalemia: (5) Hypocalcemia: Plan 69-year-old female PMHx CLL, ankylosing spondylitis, Sjogren syndrome, Hx thyroid cancer, fibromyalgia, dyslipidemia, prediabetes, hypothyroidism, history of PE/DVT (2005; off Coumadin in 2006), and UC presenting via EMS from home for complaints of bilateral knee swelling and pain as well as pain in her neck and shoulders. Patient is currently undergoing chemotherapy, Brukinsa. 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 No recent abx use. Stool Biofire and C.diff pending - uncollected there is no further bowel movement since arrival to the hospital Continue cholestyramine 4 g po BID; Zofran as needed N/V URI symptoms - procal negative, respiratory biofire negative, CXR without acute findings. Continue saline nasal spray; Ordered Afrin, Mucinex, pseudoephedrine prn #Acute on chronic pain Home regimen includes ketorolac, morphine, oxycodone. Reports follows with pain management and neurology for her pain. Offered/encourage palliative consult but pt declined Restarted scheduled MS Contin, as needed oxycodonehopeful for better pain relief Pain most at level of buttocks - waffle cushion ordered Rx for walker provided. #CLL/Anemia Follows with [facility] (Dr. Nuñez), currently on Brukinsa (started Dece). Has been requiring transfusions q2-3 weeks. Most recent transfusions 04/08/24 & 04/25/2024 s/p 2 units PRBCs with improvement in Hgb. WBC 230, which is above her baseline, but did receive dexamethasone in the ER. Continue to monitor fever curve, await stool studies. Oncology consulted - recommended workup for nutritional causes and hemolysis - B12/folate/LDH/reticulocyte count unrevealing. 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 #Electrolyte abnormalities- Hyponatremia/hypokalemia/hypocalcemia K 4.0 today, continue home supplementation Hyponatremia is chronic - asymptomatic. Hypocalcemia is also chronic but improving. #SVT- Metoprolol #Hypothyroidism- Synthroid; TSH slighly elevated, but T4 normal. No change to current dose #Insomnia- Zolpidem #Migraines/tension headache- Sumatriptan #GERD- Pantoprazole, famotidine Dispo: continued inpatient stay, hopeful for d/c tomorrow VTE prophylaxis: SCDs Admission and Anticipated Discharge Date Admission Date: May 16, 2024 Supervising Physician Co-Signing Physician Notes PA Supervision Note: I did not personally see or examine the patient today, but I verified all rubio points of KIRT Gomez's assessment and plan with the following exceptions/additions: None Subjective Patient seen earlier this morning, lying in bed. No family present at bedside. States that she is feeling less fatigued/weak now that she has gotten blood but is having worsening abdominal pain than her baseline. States at home that she normally takes MS Contin scheduled twice a day and as needed oxycodone 1-3 times a day. Discussed with patient that I suspect her pain is because of the density is fairly underdosing her pain medications. Will restart her home medications, hopeful for discharge tomorrow no further weightbearing to her leg wounds, has been ambulating in the room with her walker. Review of Systems Review of Systems: All systems reviewed & are unremarkable except as noted in Subjective Physical Exam Physical Exam: General: NAD, VS as above, appears Improved from yesterday HEENT: MM dry Resp: normal respiratory effort, lungs clear to auscultation CV: RRR, no murmur, chest wall tender to palpation generalized tenderness. Extremities: Moves all extremities, trace lower extremity edema. Excoriations to right leg and shoulder. No weeping. Neuro: A&O x3, Results & Data Results & Data Vital Signs (Past 12 Hours) Vital Signs Temp Pulse Resp BP Pulse Ox O2 Del Method 05/18/24 08:28 Room Air 05/18/24 07:16 97.5 F L 61 19 162/74 H 94 Room Air Laboratory Results CBC, chemistry, B12, LDH, retic count reviewed PG Care Time/CCT Total # of Minutes Spent Total Time Spent with Patient: Total time spent is greater than 50% in coordination of care (as documented) at patient's floor/unit and/or counseling patient: Coding Level of Care Code 19109 SUB INP/OBS CARE 3/50MIN Diagnoses Pain, generalized R52 Gastroenteritis K52.9 Hyponatremia E87.1 Hypokalemia E87.6 Hypocalcemia E83.51
--- NOTE | 2024-05-18 21:42 | Electrocardiogram Report ---
Test Reason : Blood Pressure : */* mmHG Vent. Rate : 78 BPM Atrial Rate : 78 BPM P-R Int : 162 ms QRS Dur : 88 ms QT Int : 388 ms P-R-T Axes : 16 -5 6 degrees QTcB Int : 442 ms Normal sinus rhythm Nonspecific T wave abnormality When compared with ECG of 23-Apr-2024 12:12, No significant change was found Confirmed by Abhijit Garnica ([id number]) on 05/18/2024 9:41:48 PM Referred By: REFERRED SELF Confirmed By: Abhijit Garnica
--- NOTE | 2024-05-18 21:45 | Electrocardiogram Report ---
Test Reason : Blood Pressure : */* mmHG Vent. Rate : 71 BPM Atrial Rate : 71 BPM P-R Int : 182 ms QRS Dur : 88 ms QT Int : 406 ms P-R-T Axes : 58 13 2 degrees QTcB Int : 441 ms Normal sinus rhythm Nonspecific T wave abnormality Abnormal ECG When compared with ECG of 16-May-2024 19:24, Nonspecific T wave abnormality, worse in Anterior leads Confirmed by Abhijit Garnica ([id number]) on 05/18/2024 9:45:06 PM Referred By: REFERRED SELF Confirmed By: Abhijit Garnica
[2024-05-19 07:50] VITALS: BP 148/67; PULSE 60; RESP 16; O2SAT 97
[2024-05-19 08:24] VITALS: TEMP 98.2
[2024-05-19 10:52] LABS: Influenza A virus by PCR Negative (Neg); Influenza B virus by PCR Negative (Neg); RSV by PCR Negative (Neg); SARS CoV2 RNA(COVID-19) Ceph NEGATIVE (Negative)
--- NOTE | 2024-05-19 11:29 | Discharge Summary ---
Discharge Summary Date of Service May 19, 2024 Principal Dx & Hospital Course #1 = Principal Diagnosis (1) Pain, generalized: (2) Gastroenteritis: (3) Hyponatremia: (4) Hypokalemia: (5) Hypocalcemia: Plan 69-year-old female PMHx CLL, ankylosing spondylitis, Sjogren syndrome, Hx thyroid cancer, fibromyalgia, dyslipidemia, prediabetes, hypothyroidism, history of PE/DVT (2005; off Coumadin in 2006), and UC presenting via EMS from home for complaints of bilateral knee swelling and pain as well as pain in her neck and shoulders. Patient is currently undergoing chemotherapy, Brukinsa. 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 Abdominal pain back to baseline. URI symptoms - procal negative, respiratory biofire negative, CXR without acute findings on admission. With worsening throat pain, COVID/FLU/RSV/Strep all negative. Patient reports has had issues with this outpatient and prescribed antibiotics. Continue supportive care saline nasal spray; Afrin, Mucinex, pseudoephedrine prn. Z-pack prescribed at discharge if symptoms do not improve to start tomorrow. #Acute on chronic pain Home regimen includes ketorolac, morphine, oxycodone. Reports follows with pain management and neurology for her pain. Offered/encourage palliative consult but pt declined. Pain controlled with home regimen. Pain most at level of buttocks - waffle cushion ordered Rx for walker provided. #CLL/Anemia/thrombocytopenia Follows with CCP (Dr. Nuñez), currently on Brukinsa (started Dece). - Symptoms from anemia improved after 2 units PRBCs. Oncology consulted - recommended workup for nutritional causes and hemolysis - B12/folate/LDH/reticulocyte count unrevealing. Recommend f/u with primary onc at [facility] #BLE edema LLE Doppler negative for DVT. 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 #SVT- Metoprolol #Hypothyroidism- Synthroid; TSH slighly elevated, but T4 normal. No change to current dose #Insomnia- Zolpidem #Migraines/tension headache- Sumatriptan #GERD- Pantoprazole, famotidine Dispo:discharge to home today with oncology follow up Notes For Next Care Provider has pending wound culture - from right sided shoulder blister, suspect excoriation vs reaction from chemo. preliminary gram stain without organisms. Medication Changes From Visit z-pack for sinus symptoms if not improving Admission HPI Per Admitting Provider 69-year-old female PMHx CLL, ankylosing spondylitis, Sjogren syndrome, H/L thyroid cancer, fibromyalgia, dyslipidemia, prediabetes, hypothyroidism, history of PE/DVT (2005; off Coumadin in 2006), and UC presenting via EMS from home for complaints of bilateral knee swelling and pain as well as pain in her neck and shoulders. Patient is currently undergoing chemotherapy. BLE at baseline but states that her LLE and R foot appear to be more swollen than usual, which is increased over the past few days. Weeping to RLE, clear. 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 Patient's main complaint is severe pain, uncontrollable, and generalized especially throughout her abdomen. States that she felt feverish but did not take her fever. Unfortunately, patient has multiple tumors throughout entirety of body all causing her significant pain. Left knee swollen, right heel swollen, and right leg with excoriation type roa, reportedly had been seeping but not at time of visit. On way to hospital patient received Zofran, fentanyl, and Toradol. ED evaluation reveals WBC 224, H&H 7.6/25.3, MCV/MCH/MCHC decreased, platelets 120; CMP sodium 131, potassium 31, chloride 96, calcium 7.8, total bilirubin 1.3, alkaline phosphatase 134, troponin 20.4, pending repeat; protein 5.5, globulin 1.7, lipase 8, TSH 4.821 pending free T4. BioFire negative. CXR without focal consolidation or acute findings. EKG is normal sinus at a rate of 78 bpm. Provided with 500 mL NSS, KCl 10 mEq, morphine 6 mg IV, guaifenesin 600 p.o., dexamethasone IV, and Tylenol IV. Please see Dr. Lawson's attestation for adjustments/additions to treatment plan. Discharge Exam General: NAD, VS as above, appears Improved from yesterday HEENT: MM dry. no adherent plaques or erythema. Sinus tenderness. Resp: normal respiratory effort, lungs clear to auscultation CV: RRR, no murmur, chest wall tender to palpation generalized tenderness. Extremities: Moves all extremities, trace lower extremity edema. Excoriations to right leg and shoulder. No weeping. Neuro: A&O x3, Discharge Plan Discharge Items Patient Disposition: Home - Self-Care Reason For Visit: GASTROENT., INTRACTABLE PAIN Discharge Diagnosis: acute illness, chronic pain Activity: Resume your previous activity Driving/Machine Use: No limitations Weightbearing: Full weightbearing Non-emergency contact: Primary Care Provider and Oncologist Call non-emergency contact if: you have any medication questions, your symptoms worsen, your pain is worsening, your rectal temperature is above 100.4 and your temperature is above 101 Follow-up/Referrals: Valeria Nuñez MD [Physician] - (keep appointment next week ) PCPGIUSEPPE [Primary Care Provider] - Diet: Regular Addtl Attending Provider Instructions: Ms. Pan, You were hospitalized after having diarrhea and abdominal pain at home. Thankfully, this has not recurred since you were in the hospital. It is possible you had food poisoning that has caused this. You're fatigue has improved with 2 units of blood - continue follow up with Dr. Nuñez for further transfusions. You continue to have sinus congestion symptoms - you tested negative fro strep t hroat, COVID, Flu and RSV on the day of discharge. However, given your immunocompromised state I have sent in azithromycin. If you do not feel better tomorrow, you should start this. Your lower extremity edema improved with blood and elevation. You should continue to use your lasix as needed. Continue to use waffle cushion and walker as needed. Continue your home regimen for pain. No changes to your other home medications. Please follow up with your PCP and oncologist. It was a pleasure taking care of you, take care! Pending Studies at Discharge: Yes (wound culture ) Stand-Alone Forms: My [facility] HASH, Smoking Cessation Medications and DC Order Prescriptions: New azithromycin [Zithromax Z-Tyler] 250 mg tablet See Rx Instructions .ROUTE .COMPLEX Qty: 6 0RF Rx Instructions: For 250 mg dose pack: take 500 mg today (day 1), then 250 mg for 4 days (days 2-5) Continued sumatriptan succinate [Imitrex] 100 mg tablet 100 mg PO DAILY MDD 4 TABS/24 HOURS PRN (Reason: migraine headache) Qty: 9 2RF Rx Instructions: MAY REPEAT IF CONTINUES FOR 1.5 HOURS. ketorolac 10 mg tablet 10 mg PO TID 7 Days Qty: 21 5RF Rx Instructions: Takes tid x one week per month- other 3 weeks takes relafen pisuydbmsb-amidqcwmcttwv-cnmq 50-325-40 mg tablet 1 tab PO TID PRN (Reason: TENSION HEADACHES) Qty: 90 2RF ondansetron HCl 8 mg tablet 8 mg PO TID PRN (Reason: NAUSEA/VOMITING) Qty: 90 3RF meclizine 25 mg tablet 25 mg PO QID 30 Days Qty: 120 5RF cyclobenzaprine 10 mg tablet 10 mg PO TID 90 Days Qty: 270 3RF Rx Instructions: Medication needed muscle spasms from chronic pain: Cervical and lumbar spine spondylosis, as well as chronic lymphocytic leukemia and muscle spasms from chemotherapy. Also Fibromyalgia, and ankylosing spondylitis morphine 30 mg tablet extended release 30 mg PO BID PRN (Reason: Pain) Qty: 60 0RF oxycodone 20 mg tablet 20 mg PO Q4H Qty: 90 0RF promethazine 25 mg tablet 25 mg PO Q4H PRN (Reason: nausea and vomiting) 30 Days Qty: 60 5RF Rx Instructions: Give patient 60 pills to last one month. metoprolol tartrate 50 mg tablet 50 mg PO TID PRN (Reason: tachycardia) Qty: 270 3RF Patient Comments: pt takes med for prn tachycardia not for hypertension. nitroglycerin 400 mcg/spray spray,non-aerosol See Rx Instructions .ROUTE .COMPLEX Qty: 14.7 3RF Dose Instruction: USE 1 SPRAY SUBLINGUALLY EVERY 5 MINUTES NEEDED FOR CHEST PAIN Rx Instructions: USE 1 SPRAY SUBLINGUALLY EVERY 5 MINUTES NEEDED FOR CHEST PAIN pantoprazole 40 mg tablet,delayed release (DR/EC) 40 mg PO QAM Qty: 180 pilocarpine HCl [Salagen (pilocarpine)] 5 mg tablet 5 mg PO QID levothyroxine [Synthroid] 175 mcg tablet 175 mcg PO DAILYBB Rx Instructions: "BRAND NECESSARY' [place]ovy Syringe 225 mg/1.5 mL syringe 225 mg subcut MONTHLY Qty: 1.5 11RF Patient Comments: on hold at present 09/22/23 nabumetone 750 mg tablet 750 mg PO BID Qty: 60 5RF Rx Instructions: TAKES FOR 3 WEEKS, THEN 1 WEEK TORADOL, THEN REPEAT SCHEDULE ofloxacin [Ocuflox] 0.3 % drops 1 drops OPB TID furosemide 40 mg tablet 60 mg PO QAM PRN (Reason: swelling) Qty: 20 1RF potassium chloride 10 mEq capsule, extended release 20 meq PO BID Qty: 360 3RF Rx Instructions: 03/25/24 THIS MED CURRENTLY ON HOLD ketorolac [Acular] 0.5 % drops 1 drp OPB TID olopatadine 0.1 % drops 1 drp OPB BID famotidine [Pepcid AC] 20 mg Tablet 20 mg PO BID PRN (Reason: Heartburn) timolol maleate [Istalol] 0.5 % drops, once daily 1 drp OPHTHALMIC (EYE) BID Rx Instructions: one drop in each eye, twice per day. cetirizine [Zyrtec] 10 mg Tablet 10 mg PO QAM diphenhydramine HCl [Benadryl] 25 mg Capsule 25 mg PO DAILY PRN (Reason: Allergy Symptoms) pseudoephedrine HCl [Sudafed] 30 mg Tablet 30 mg PO DIRECTED PRN (Reason: Congestion) oxymetazoline [Afrin (oxymetazoline)] 0.05 % [place],Non-Aerosol 2 spray INTRANASAL UD PRN (Reason: Congestion) Rx Instructions: q4-6 h guaifenesin [Mucinex] 600 mg Tablet Extended Release 12hr 600 mg PO Q12H PRN (Reason: Congestion) Magic Swizzle 1 dose PO DIRECTED PRN (Reason: MOUTH SORE FROM CHEMO) acyclovir 400 mg tablet 400 mg PO TID Patient Comments: Rx Instructions: TAKES WHILE ON VENCLEXTA. Refresh Optive Advanced (PF) 0.5-1-0.5 % Dropperette 1 drp OPHTHALMIC (EYE) DIRECTED PRN (Reason: Dry Eyes) metoprolol succinate 100 mg tablet extended release 24 hr 100 - 150 mg PO UD Rx Instructions: TAKES 150 MG QAM, THEN 100 MG QPM. orally, AND 50MG TID PRN loperamide 2 mg Capsule 2 mg PO Q6H PRN (Reason: Diarrhea) Rx Instructions: OK to take per Dr Hubbard zolpidem [Ambien] 10 mg tablet 10 mg PO HS PRN (Reason: Sleep) Rx Instructions: Take 1 hour before bedtime. Brukinsa 80 mg Capsule 160 mg PO QAM Rx Instructions: TWO CAPSULES EVERY MORNING triamcinolone acetonide [Nasacort] 55 mcg Aerosol,[place] 1 spray INTRANASAL AMPM PRN (Reason: Allergy Symptoms) Rx Instructions: administer into each nostril Discharge Orders: Discharge Order (Routine); Ordered 05/19/24 Ordered By: Gabbie Monaco/Other Patient Handouts: ED Gastritis (Adult) Admission Data Admit Date/Time: 05/16/24 21:56 Attending Provider: Rowena Morocho Admit Provider: Marcos Lawson Primary Care Provider: PCP,GIUSEPPE Other Providers: Marcos Lawson; Valeria Nuñez Other Interventions: Discharge Summary Assessment (RN) Last Done: 05/19/24 12:24 Hospital Stay Data Consultations 05/16/24 20:50 ED Decision to Admit Stat 05/17/24 11:08 Consult Oncology Routine Diagnostic Imagining Performed Chest X-Ray 05/16/24 19:11 Exam(s): XR CXR 1 VIEW EXAM: XR Chest, 1 View CLINICAL HISTORY: Chest pain, nonspecific. TECHNIQUE: Frontal view of the chest. COMPARISON: CT chest with contrast 04/23/2024 FINDINGS: Lungs: Slightly coarse interstitial markings. No focal airspace consolidation. No radiographic evidence for florid CHF. Pleural space: Unremarkable. No pneumothorax. No large pleural effusion. Heart: The cardiac silhouette is within normal limits, accounting for portable technique. Mediastinum: The mediastinal contours are within normal limits, accounting for obliquity. No tracheal deviation. Bones/joints: Unremarkable. No acute fracture. Lymph nodes: The bilateral axillary lymphadenopathy on the previous CT examination is not clearly evident radiographically. IMPRESSION: No focal consolidation or acute cardiopulmonary process identified. Electronically signed by: Jalen Mistry MD 05/16/24 21:02 PM Venous Doppler Study 05/17/24 00:00 LEFT LOWER EXTREMITY VENOUS DOPPLER HISTORY: Acute pain and swelling of the left lower leg LLE swelling, h/o DVT, CA COMPARISON STUDY: 08/24/2023 FINDINGS: There is normal compressibility, flow, and augmentation within the left lower extremity deep venous system. IMPRESSION: No DVT within the left lower extremity. ACT 112: Negative or not required by law. Electronically signed by: Blade Sosa M.D. 05/17/2024 9:11 AM Pending Results Patient Have Any Pending Studies at Discharge: Yes (wound culture ) Discharge Instructions Given to Patient (Per Discharging Provider) Ms. Pan, Jet were hospitalized after having diarrhea and abdominal pain at home. Thankfully, this has not recurred since you were in the hospital. It is possible you had food poisoning that has caused this. You're fatigue has improved with 2 units of blood - continue follow up with Dr. Nuñez for further transfusions. You continue to have sinus congestion symptoms - you tested negative fro strep throat, COVID, Flu and RSV on the day of discharge. However, given your immunocompromised state I have sent in azithromycin. If you do not feel better tomorrow, you should start this. Your lower extremity edema improved with blood and elevation. You should continue to use your lasix as needed. Continue to use waffle cushion and walker as needed. Continue your home regimen for pain. No changes to your other home medications. Please follow up with your PCP and oncologist. It was a pleasure taking care of you, take care! Supervising Physician Co-Signing Physician Notes PA Supervision Note: I did not personally see or examine the patient today, but I verified all rubio points of KIRT Gomez's assessment and plan with the following exceptions/additions: None Total Time Total Time Spent Total Time Spent (In Minutes): Time spent day of discharge 36 minutes including direct patient care, medication reconciliation, documentation, review of labs and images, and coordination of care. Coding Level of Care Code 97553 INP/OBS DISCH >30 MIN Diagnoses Pain, generalized R52 Gastroenteritis K52.9 Hyponatremia E87.1 Hypokalemia E87.6 Hypocalcemia E83.51
== END 2024-05-19 13:04 | disposition home or self-care (01) | DRG 392 ==
LOC: ED 18:43 → SUATTDRO 21:56 → EDINP 21:56 → 3E 05-17 08:00 → 3N 05-18 19:41

== ENCOUNTER 2024-12-14 10:28 | Observation (INO) ==
--- NOTE | 2024-12-14 10:59 | XRay Report ---
XR chest 1V portable CLINICAL HISTORY: Chest pain, nonspecific COMPARISON STUDY: 01/13/2025 FINDINGS: Stable mild cardiomegaly without pulmonary vascular congestion. No consolidation or pleural effusion. No pneumothorax. IMPRESSION: No acute findings. ACT 112: Negative or not required by law. Electronically signed by: Vish Shelley M.D. 12/14/2024 10:58 AM
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
[2024-12-14] MEDS: HYDROmorphone INJ 0.5 MG/0.5 ML SYR IV STA (11:43)
[2024-12-14] MEDS: ONDANSETRON INJ 2 MG/ML 2 ML VIAL IV STA (11:47)
[2024-12-14 12:31] LABS: INR 1.1 (0.9-1.1); Partial Thromboplastin Time 26 Seconds (21-31); Prothrombin Time 11.4 Seconds (9.0-12.0)
[2024-12-14 12:36] LABS: Alanine Aminotransferase 11 U/L (7-52); Albumin Globulin Ratio 2.0 (0.9-2); Alkaline Phosphatase 107 U/L (34-104); Anion Gap 2 (3-11); Bilirubin,Total 0.7 mg/dl (0.2-1.0); Blood Urea Nitrogen 9 mg/dl (6-23); Calcium 7.5 mg/dl (8.6-10.3); Carbon Dioxide 29 mmol/L (21-32); Chloride 91 mmol/L (98-107); Globulin 1.8 gm/dl (2.5-4.0); Glucose 89 mg/dl (70-99(Fasting)); Lipase 12 U/L (11-82); Magnesium 2.1 mg/dl (1.7-2.4); Potassium 4.0 mmol/L (3.5-5.1); Sodium 122 mmol/L (136-145); Total Protein 5.4 gm/dl (6.0-8.3)
[2024-12-14 12:43] LABS: Hematocrit (blood only) 24.3 % (37.0-47.0); Hemoglobin 6.9 g/dl (12.0-16.0); Mean Corpuscular Hemoglobin 23.4 pg (25.0-34.0); Mean Corpuscular Volume 82.4 fL (80.0-100.0); Platelet Count 122 K/uL (130-400); RDW Standard Deviation 53.6 fL (36.4-46.3); Red Blood Count 2.95 M/uL (4.20-5.40); White Blood Count 350.86 K/ul (4.8-10.8)
[2024-12-14] MEDS: SODIUM CHLORIDE 0.9% 500 ML IV ONE (13:02)
[2024-12-14] MEDS: OPTIRAY 320 125ml IV ONE (13:22)
[2024-12-14] MEDS ORDERED: SODIUM CHLORIDE 0.9% 100 ML IV PRN ×2 (13:23→22:00)
[2024-12-14 13:29] LABS: Anisocytosis Present; Immature Granulocytes # (auto) 0.43 K/uL (0.01-0.20); Immature Granulocytes % (auto) 0.1 %; Smudge Cells Present
[2024-12-14] MEDS: HYDROmorphone INJ 0.5 MG/0.5 ML SYR IV PRN (13:49)
--- NOTE | 2024-12-14 14:00 | CT Scan Report ---
CT angio chest PE protocol CT DOSE: 579.36 mGy.cm HISTORY: 69 years-old Female with PE. Acute shortness of breath . History of CLL. TECHNIQUE: Multiple CTA images of the chest were obtained after the intravenous administration of 115 ml Optiray. Coronal and sagittal MIPS were obtained from the axial data set and were submitted for review. All measurements were obtained according to NASCET criteria. A dose lowering technique was u tilized adhering to the principles of ALARA. COMPARISON: Chest CT 09/19/2024 FINDINGS: CTA: Heart is normal in size. Mild coronary artery calcifications. No thoracic aortic aneurysm. No pulmona ry emboli identified. CT CHEST: No thyroid nodule identified. Pathologic lymphadenopathy of the chest is most pronounced in the axill angelito chains. This includes a 3.0 x 1.5 cm right axillary lymph node on image 157 series 4, previously 3.9 x 1.6 cm. An index left axillary lymph node on image 137 series 4 measures 2.3 x 1.6 cm, previous ly 2.7 x 1.6 cm. A 10 mm subcarinal lymph node is generally stable. Mild nonspecific wall thickening throughout the majority of the esophagus. There is no pneumothorax, pleural effusion, airspace consolidation, overt pulmonary edema, suspicious pulmonary nodule or mass. The central airways appear patent. Perisplenic ascites with marked splenomegaly is partially imaged. Pathologic upper abdominal lymphade nopathy is again partially imaged. Unremarkable soft tissues. Diffusely heterogeneous appearance of t he bone marrow again noted. IMPRESSION: 1. No acute intrathoracic abnormality, specifically no pulmonary emboli are identified. 2. Pathologic lymphadenopathy of the chest and upper abdomen with marked splenomegaly appears similar to the 09/19/2024 exam in this patient with clinical history of CLL. 3. Mild nonspecific esophageal wall thickening may represent esophagitis. 4. Trace perisplenic ascites. ACT 112: Negative or not required by law. The above report was generated using voice recognition software. It may contain grammatical, syntax o r spelling errors. Electronically signed by: Blade Sosa M.D. 12/14/2024 1:59 PM
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
--- NOTE | 2024-12-14 14:38 | Electrocardiogram Report ---
Test Reason : Blood Pressure : */* mmHG Vent. Rate : 69 BPM Atrial Rate : 69 BPM P-R Int : 158 ms QRS Dur : 102 ms QT Int : 388 ms P-R-T Axes : -14 -14 -19 degrees QTcB Int : 415 ms Sinus rhythm with occasional Premature ventricular complexes Minimal voltage criteria for LVH, may be normal variant Inferior infarct , age undetermined Abnormal ECG When compared with ECG of 17-May-2024 07:00, Premature ventricular complexes are now Present Inferior infarct is now Present Nonspecific T wave abnormality no longer evident in Anterior leads Confirmed by Carlos Gonzalez ([id number]) on 12/14/2024 2:38:01 PM Referred By: REFERRED SELF Confirmed By: Carlos Gonzalez
[2024-12-14] MEDS: NITROGLYCERIN 2% OINTMENT 30GM TUBE EXT STA (15:26)
[2024-12-14] MEDS: ALUMINUM/MAGNESIUM SUSP 30 ML UDC PO STA (16:13)
[2024-12-14] MEDS: LIDOCAINE VISCOUS 2% 15 ML UDC PO ONE (16:13)
[2024-12-14] MEDS ORDERED: MAGNESIUM HYDROXIDE SUSP 30 ML UDC PO PRN (16:41)
[2024-12-14] MEDS ORDERED: POLYETHYLENE (MIRALAX) 17 GM PACK PO PRN (16:41)
[2024-12-14] MEDS ORDERED: NITROGLYCERIN 2% OINTMENT 30GM TUBE EXT PRN (16:41)
[2024-12-14] MEDS ORDERED: ALUMINUM/MAGNESIUM SUSP 30 ML UDC PO PRN (16:41)
[2024-12-14] MEDS ORDERED: ACETAMINOPHEN 325 MG TAB PO PRN (16:41)
[2024-12-14] MEDS ORDERED: FAMOTIDINE 20 MG TAB PO PRN (16:41)
[2024-12-14] MEDS ORDERED: ZOLPIDEM TARTRATE 5 MG TAB PO PRN (16:41)
[2024-12-14] MEDS ORDERED: PROMETHAZINE HCL 25 MG TAB PO PRN (16:41)
[2024-12-14] MEDS ORDERED: LOPERAMIDE HCL 2 MG CAP PO PRN (16:41)
[2024-12-14] MEDS ORDERED: FLUTICASONE PROPIONATE NA SPR 16 GM BTL PRN (16:50)
[2024-12-14] MEDS ORDERED: ARTIFICIAL TEARS OP PRN (16:54)
[2024-12-14] MEDS: CYCLOBENZAPRINE HCL 10 MG TAB PO STA (16:59)
[2024-12-14] MEDS ORDERED: FIRST - Mouthwash BLM 5 ML UDP PO PRN (17:14)
[2024-12-14] MEDS: PILOCARPINE HCL 5 MG TABLET PO STA (17:39)
[2024-12-14] MEDS: FUROSEMIDE 40 MG/4 ML VIAL IV ONE (18:23)
[2024-12-14] MEDS: PILOCARPINE HCL 5 MG TABLET PO SCH (18:23)
[2024-12-14] MEDS: ENOXAPARIN INJ 40 MG/0.4 ML SYR SQ SCH (18:24)
[2024-12-14] MEDS: MECLIZINE HCL 25 MG TAB PO SCH (18:24)
[2024-12-14] MEDS: SODIUM CHLORIDE 1 GM TABLET PO ONE (20:00)
[2024-12-14] MEDS: POTASSIUM CHLORIDE CRTAB 20 MEQ TABCR PO SCH (22:55)
[2024-12-14] MEDS: CYCLOBENZAPRINE HCL 10 MG TAB PO SCH (22:57)
[2024-12-14] MEDS: KETOROLAC 0.5% OP SOLN 5 ML BTL OPB SCH (22:58)
[2024-12-14] MEDS: MoRPHine SULFATE CR 15 MG TABCR PO SCH (22:59)
[2024-12-14] MEDS: METOPROLOL SUCC 50MG EXT REL TAB PO SCH (22:59)
[2024-12-14] MEDS: NABUMETONE 500 MG TABLET PO SCH (23:00)
[2024-12-14] MEDS: OFLOXACIN 0.3% 75 DROPS/5 ML BTL OPB SCH (23:01)
[2024-12-14] MEDS: TIMOLOL MALEATE 0.5% OP SOLN 5 ML BTL OP SCH (23:02)
[2024-12-14] MEDS: diphenhydrAMINE Capsule 25 MG CAP PO ONE (23:52)
[2024-12-14] MEDS: ONDANSETRON 4 MG OD TAB PO PRN (23:52)
--- NOTE | 2024-12-14 23:55 | Ultrasound Report ---
Exam(s): US VENOUS BILATERAL LOWER EXTREMITIES EXAM: US Duplex Bilateral Lower Extremities Veins CLINICAL HISTORY: Reason for exam: bilateral leg swelling calf tenderness. TECHNIQUE: Real-time duplex ultrasound scan of the bilateral lower extremity veins integrating B-mode two-dimensional vascular structure, Doppler spectral analysis, color flow Doppler imaging and compression. COMPARISON: No relevant prior studies available. FINDINGS: Right deep veins: No DVT in the right common femoral, femoral, proximal deep femoral or popliteal veins. The veins demonstrate normal color flow, are normally compressible, with normal phasic flow and/or augmentation response. Right superficial veins: No thrombus in the visualized right great saphenous vein. Left deep veins: No DVT in the left common femoral, femoral, proximal deep femoral or popliteal veins. The veins demonstrate normal color flow, are normally compressible, with normal phasic flow and/or augmentation response. Left superficial veins: No thrombus in the visualized left great saphenous vein. Soft tissues: There is a 2.6 x 0.9 x 0.6 cm cystic area noted in the right popliteal fossa. There are mildly prominent right inguinal lymph nodes.. IMPRESSION: No ultrasound evidence of deep venous thrombosis in lower extremities.. There is a possible 2.6 cm right popliteal cyst. Electronically signed by: Flako Foote MD 12/14/24 23:54 PM
[2024-12-15] MEDS: OLOPATADINE SCH (00:08)
[2024-12-15] MEDS: BUTALBITAL/ACETAMIN/CAFFEINE TAB PO PRN (02:59)
[2024-12-15] MEDS: LEVOTHYROXINE SODIUM 175 MCG TABLET PO SCH (06:02)
[2024-12-15 06:47] LABS: Hematocrit (blood only) 31.2 % (37.0-47.0); Hemoglobin 8.6 g/dl (12.0-16.0); Mean Corpuscular Hemoglobin 22.6 pg (25.0-34.0); Mean Corpuscular Volume 81.9 fL (80.0-100.0); Platelet Count 93 K/uL (130-400); RDW Standard Deviation 49.1 fL (36.4-46.3); Red Blood Count 3.81 M/uL (4.20-5.40); White Blood Count 384.30 K/ul (4.8-10.8)
[2024-12-15] MEDS: METOPROLOL SUCC 50MG EXT REL TAB PO SCH (08:06)
[2024-12-15 08:17] LABS: Anion Gap 6.0 (3-11); Calcium 7.7 mg/dl (8.6-10.3); Carbon Dioxide 27.0 mmol/L (21-32); Chloride 96.0 mmol/L (98-107); Potassium 3.6 mmol/L (3.5-5.1); Sodium 129.0 mmol/L (136-145)
[2024-12-15 08:23] LABS: Blood Urea Nitrogen 9.0 mg/dl (6-23); Creatinine Clr Calc Pharmacy 57.8 ml/min; Glucose 92.0 mg/dl (70-99(Fasting))
[2024-12-15 08:37] VITALS: TEMP 98.2
[2024-12-15] MEDS: CETIRIZINE HCL 10 MG TABLET PO SCH (10:32)
--- NOTE | 2024-12-15 11:22 | Discharge Summary ---
Discharge Summary Date of Service December 15, 2024 Principal Dx & Hospital Course #1 = Principal Diagnosis (1) Chest pain: (2) Anemia: (3) CLL (chronic lymphocytic leukemia): (4) Hyponatremia: (5) Cancer related pain: (6) History of atrial fibrillation: (7) Angina at rest: (8) History of pulmonary embolus (PE): Plan 69 y/o with CLL who was in cancer center for transfusion. She c/o chest pain since yesterday. Sent to ED for evaluation I reviewed previous records - she had negative MPS 05/2023 - chest pain was reproduced during the exam but resolved with rest and diet cola. Imaging was negative for ischemia. She had event monitor for 28 days 03/2024 there were no significant arrhythmias, she recorded 60 episodes of symptoms and these occurred during sinus rhythm and mild sinus tachycardia. I reviewed the most recent cardiology clinic note by Dr. Eaton 07/01/24. He noted that cardiac status is "stable and benign." She may have microvascular ischemia given her recurrent chest pain during stress tests and exercise, reasonable to continue PRN nitroglycerin "You were very anemic and had blood transfusion for 2 units. Hg came up to 8.6 I think the anemia was provoking your angina (chest pain). We did not see signs of a heart attack or arrhythmia. CTA of the chest was negative for PE and other findings to cause chest pain. Leg ultrasound was negative for DVTs. -continue metoprolol and nitroglycerin spray as needed Your blood sodium was lower than normal for you. I think the anemia was playing a role in this, also you were a little fluid overloaded -it responded to a salt tab and dose of IV lasix -at home try eating a normal salt diet and using your lasix a little more often You had some esophagitis on your CT. Increase your protonix to twice a day for awhile and see if it helps your symptoms. Follow up with gastroenterology as planned once your mouth heals. " # Chest pain, palpitations # SVT, possibe distant episodes of PAF - continue metoprolol -history of DVT/PE, CTA chest without PE pulmonary infiltrate or pleural effusion. -microvascular disease with chronic angina - worsening may be provoked by anemia, resolved -Tn normal and EKG reassuring - no evidence of ACS -Has severe GERD, esophagitis on CTA - GI cocktail, continue PPI increased to bid -PRN nitro spray - uses at least daily at home for chest pains, tightness -no arrhythmias on tele -chest pain resolved # CLL causing anemia and thrombocytopenia - more anemic than baseline but WBC and Plt are at baseline. Hg 6.9-->8.6 after 2u - 2 units RBC transfused - follow up with Dr. Nuñez # acute on chronic hyponatremia - Na 122 and usually runs higher. Probably multifactorial. Looks relatively euvolemic but has had increasing leg edema. May have SIADH, low solute diet, mild volume overload. -transfused -reviewed medlist and no obvious culprits other than PRN lasix - she says leg edema increased recently and po lasix no longer working -improved after salt tab 1g x 1 and lasix 40 mg IV x 1. At her baseline 129 at discharge -ordered urine Na but not done -she will try increasing dietary salt and increasing frequency of her lasix at home # chronic hypokalemia - normal today 4.0 -continue KCl capsules 20 bid -she has had pseudohyperkalemia and potassium level must be drawn in non- heparinized tube - ordered this way, comment to lab # cancer related pain, opioid dependence -continue oxycodone 20 mg tid prn -cont nabumetone and cyclobenzaprine # increased leg swelling and pain - dependent edema on exam. LE duplex negative. Responded to diuretic and elevation Continue her usual Sjogren's meds which includes multiple eye drops and pilocarpine Admission HPI Per Admitting Provider 69 y/o with CLL was at infusion center for transfusion when she mentioned L sided chest pain since last night. Sent to ED for evaluation. Last evening had palpitations and chest pains - does not feel like her GERD. Sharp, precordial, nonradiating. Persists today but has improved. NTG helped somewhat but recurred. No dyspnea/cough. She has hx PE in the past but almost 20 years ago. Has had increased leg edema. No dyspnea or hypoxia. Planned 2u RBC in MTU today - sent to ED instead, transfusion started in ED first bag is finishing usually needs transfusion q 2-3 weeks Hg 6.9, Tn 4.8 no acute ischemic changes on EKG CTA chest - no PE or infiltrates, possible esophagitis. Splenomegaly and LAD as expected for CLL. Discharge Exam Last 24h vitals reviewed GEN: no acute distress, sitting in bed HEENT: pupils equal, sclerae anicteric, moist MM, dysconjugate RESP: normal WOB CV: ABD: : no keenan SKIN: warm and dry, no generalized rashes EXT: LE wwp and 1+ edema below the knee - improved NEURO: AOx person, place, and situation. Face symmetric, speech normal, moves 4 ext spontaneously and equally Discharge Plan Discharge Items Patient Disposition: Home - Self-Care Reason For Visit: ANEMIA, CHEST PAIN Discharge Diagnosis: Anemia, chest pain, hyponatremia Condition on Discharge: Fair Activity: Resume your previous activity Non-emergency contact: Oncologist Call non-emergency contact if: you have any medication questions and your symptoms worsen Follow-up/Referrals: Valeria Nuñez MD [Physician] - PCP,NO [Primary Care Provider] - Diet: Regular Addtl Attending Provider Instructions: You were very anemic and had blood transfusion for 2 units. Hg came up to 8.6 I think the anemia was provoking your angina (chest pain). We did not see signs of a heart attack or arrhythmia. CTA of the chest was negative for PE and other findings to cause chest pain. Leg ultrasound was negative for DVTs. -continue metoprolol and nitroglycerin spray as needed Your blood sodium was lower than normal for you. I think the anemia was playing a role in this, also you were a little fluid overloaded -it responded to a salt tab and dose of IV lasix -at home try eating a normal salt diet and using your lasix a little more often You had some esophagitis on your CT. Increase your protonix to twice a day for awhile and see if it helps your symptoms. Follow up with gastroenterology as planned once your mouth heals. It was a pleasure taking care of you in the hospital, Arianne Nolasco MD Pending Studies at Discharge: No Stand-Alone Forms: My [facility] [employer], Smoking Cessation Medications and DC Order Prescriptions: New pantoprazole 40 mg Tablet,Delayed Release (Dr/Ec) 40 mg PO BID Qty: 60 0RF Continued ondansetron HCl 8 mg tablet 8 mg PO TID PRN (Reason: NAUSEA/VOMITING) Qty: 90 3RF cyclobenzaprine 10 mg tablet 10 mg PO TID 90 Days Qty: 270 3RF Rx Instructions: Medication needed muscle spasms from chronic pain: Cervical and lumbar spine spondylosis, as well as chronic lymphocytic leukemia and muscle spasms from chemotherapy. Also Fibromyalgia, and ankylosing spondylitis metoprolol tartrate 50 mg tablet 50 mg PO TID PRN (Reason: tachycardia) Qty: 270 3RF Patient Comments: pt takes med for prn tachycardia not for hypertension. furosemide 40 mg tablet 60 mg PO QAM PRN (Reason: swelling) Qty: 90 1RF ketorolac 10 mg tablet 10 mg PO TID 7 Days Qty: 21 5RF Rx Instructions: Takes tid x one week per month- other 3 weeks takes relafen [id number]-prfwwjgwmqgnq-[id number] 50-325-40 mg tablet 1 tab PO TID PRN (Reason: TENSION HEADACHES) Qty: 90 2RF sumatriptan succinate [Imitrex] 100 mg tablet 100 mg PO DAILY MDD 4 TABS/24 HOURS PRN (Reason: migraine headache) Qty: 9 2RF Rx Instructions: MAY REPEAT IF CONTINUES FOR 1.5 HOURS. nitroglycerin 400 mcg/spray spray,non-aerosol See Rx Instructions .ROUTE .COMPLEX Qty: 14.7 3RF Dose Instruction: USE 1 SPRAY SUBLINGUALLY EVERY 5 MINUTES NEEDED FOR CHEST PAIN Rx Instructions: USE 1 SPRAY SUBLINGUALLY EVERY 5 MINUTES NEEDED FOR CHEST PAIN promethazine 25 mg tablet 25 mg PO Q4H PRN (Reason: nausea and vomiting) 30 Days Qty: 60 5RF Rx Instructions: Give patient 60 pills to last one month. zolpidem [Ambien] 10 mg tablet 10 mg PO HS PRN (Reason: Sleep) 30 Days Qty: 30 5RF Rx Instructions: Take 1 hour before bedtime. morphine 30 mg tablet extended release 30 mg PO BID Qty: 60 0RF oxycodone 20 mg tablet 20 mg PO TID PRN (Reason: pain) Qty: 90 0RF meclizine 25 mg tablet 25 mg PO QID 30 Days Qty: 120 5RF pilocarpine HCl [Salagen (pilocarpine)] 5 mg tablet 5 mg PO QID levothyroxine [Synthroid] 175 mcg tablet 175 mcg PO DAILYBB Rx Instructions: "BRAND NECESSARY' [place]ovy Syringe 225 mg/1.5 mL syringe 225 mg subcut MONTHLY Qty: 1.5 11RF Patient Comments: on hold at present 09/22/23 nabumetone 750 mg tablet 750 mg PO BID Qty: 60 5RF Rx Instructions: TAKES FOR 3 WEEKS, THEN 1 WEEK TORADOL, THEN REPEAT SCHEDULE ofloxacin [Ocuflox] 0.3 % drops 1 drops OPB TID silver sulfadiazine [Silvadene] 1 % cream 1 applic topical BID PRN (Reason: wound healing) Qty: 50 0RF Rx Instructions: apply a 1.5 mm thickness potassium chloride 10 mEq capsule, extended release 20 meq PO BID Qty: 360 3RF Rx Instructions: 03/25/24 THIS MED CURRENTLY ON HOLD ketorolac [Acular] 0.5 % drops 1 drp OPB TID olopatadine 0.1 % drops 1 drp OPB BID famotidine [Pepcid AC] 20 mg Tablet 20 mg PO BID PRN (Reason: Heartburn) timolol maleate [Istalol] 0.5 % drops, once daily 1 drp OPHTHALMIC (EYE) BID Rx Instructions: one drop in each eye, twice per day. cetirizine [Zyrtec] 10 mg Tablet 10 mg PO QAM diphenhydramine HCl [Benadryl] 25 mg Capsule 25 mg PO DAILY PRN (Reason: Allergy Symptoms) pseudoephedrine HCl [Sudafed] 30 mg Tablet 30 mg PO DIRECTED PRN (Reason: Congestion) oxymetazoline [Afrin (oxymetazoline)] 0.05 % [place],Non-Aerosol 2 spray INTRANASAL UD PRN (Reason: Congestion) Rx Instructions: q4-6 h guaifenesin [Mucinex] 600 mg Tablet Extended Release 12hr 600 mg PO Q12H PRN (Reason: Congestion) Magic Swizzle 1 dose PO DIRECTED PRN (Reason: MOUTH SORE FROM CHEMO) acyclovir 400 mg tablet 400 mg PO TID Patient Comments: Rx Instructions: TAKES WHILE ON VENCLEXTA. Refresh Optive Advanced (PF) 0.5-1-0.5 % Dropperette 1 drp OPHTHALMIC (EYE) DIRECTED PRN (Reason: Dry Eyes) metoprolol succinate 100 mg tablet extended release 24 hr 100 - 150 mg PO UD Rx Instructions: TAKES 150 MG QAM, THEN 100 MG QPM. orally, AND 50MG TID PRN loperamide 2 mg Capsule 2 mg PO Q6H PRN (Reason: Diarrhea) Rx Instructions: OK to take per Dr Stevie Villarreal 80 mg Capsule 160 mg PO QAM Rx Instructions: TWO CAPSULES EVERY MORNING triamcinolone acetonide [Nasacort] 55 mcg Aerosol,[place] 1 spray INTRANASAL AMPM PRN (Reason: Allergy Symptoms) Rx Instructions: administer into each nostril Discontinued pantoprazole 40 mg tablet,delayed release (DR/EC) 40 mg PO QAM Qty: 180 Discharge Orders: Discharge Order (Routine); Ordered 12/15/24 Ordered By: Arianne Nolasco Admission Data Admit Date/Time: 12/14/24 15:43 Attending Provider: Arianne Nolasco Admit Provider: Arianne Nolasco Primary Care Provider: PCP,NO Other Providers: Arianne Nolasco Other Interventions: Discharge Summary Assessment (RN) Last Done: 12/15/24 12:09 Hospital Stay Data Consultations 12/14/24 14:14 ED Decision to Admit Stat Diagnostic Imagining Performed 12/14/24 10:45 CT angio chest PE protocol Stat 12/14/24 18:20 US venous duplex leg [US venous doppler LE BI] Routine Pending Results Patient Have Any Pending Studies at Discharge: No Discharge Instructions Given to Patient (Per Discharging Provider) You were very anemic and had blood transfusion for 2 units. Hg came up to 8.6 I think the anemia was provoking your angina (chest pain). We did not see signs of a heart attack or arrhythmia. CTA of the chest was negative for PE and other findings to cause chest pain. Leg ultrasound was negative for DVTs. -continue metoprolol and nitroglycerin spray as needed Your blood sodium was lower than normal for you. I think the anemia was playing a role in this, also you were a little fluid overloaded -it responded to a salt tab and dose of IV lasix -at home try eating a normal salt diet and using your lasix a little more often You had some esophagitis on your CT. Increase your protonix to twice a day for awhile and see if it helps your symptoms. Follow up with gastroenterology as planned once your mouth heals. It was a pleasure taking care of you in the hospital, Arianne Nolasco MD Total Time Total Time Spent Total Time Spent (In Minutes): <30 Coding Level of Care Code 30040 IN/OBS DISCH 30 MIN/LESS Diagnoses Chest pain R07.9 Anemia D64.9 CLL (chronic lymphocytic leukemia) C91.10 Hyponatremia E87.1 Cancer related pain G89.3 History of atrial fibrillation Z86.79 Angina at rest I20.89 History of pulmonary embolus (PE) Z86.711
[2024-12-15 12:04] VITALS: PULSE 65; RESP 16; O2SAT 95
[2024-12-15 12:11] VITALS: BP 142/61
== END 2024-12-15 12:47 | disposition home or self-care (01) ==
LOC: EDINP 10:28 → ED 10:28 → 2N 16:41 → 2W 21:58

== ENCOUNTER 2025-01-28 13:12 | Inpatient (IN) ==
--- NOTE | 2025-01-28 14:12 | Emergency Department Note ---
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 0.5 mg IV NOW STA Stop: 01/28/25 13:55 Last Admin: 01/28/25 14:49 Dose: 0.5 mg Documented By: TYREE Sodium Chloride (Nss) 1,000 mls @ 150 mls/hr IV .Q6H40M ONE Stop: 01/28/25 22:23 Last Infusion: 01/28/25 23:10 Dose: Infused Documented By: Infusion: 01/28/25 22:22 Dose: 0 mls/hr Documented By: Admin: 01/28/25 17:05 Dose: 150 mls/hr Documented By: NIKI Cefazolin Sodium (Ancef 2000mg) 2,000 mg in 15 mls @ 3.75 mls/min IV Q8H WALT Stop: 02/04/25 18:29 Last Admin: 01/28/25 20:17 Dose: Not Given Documented By: RITA Vancomycin HCl 750 mg/ Sodium (Chloride) 265 mls @ 200 mls/hr IV BID WALT Stop: 02/04/25 20:59 Last Admin: 01/28/25 22:20 Dose: Not Given Documented By: REUBEN Piperacillin Sod/Tazobactam Sod (Zosyn) 4.5 gm in 100 mls @ 200 mls/hr IV ONE ONE; Protocol Stop: 01/28/25 21:29 Last Infusion: 01/28/25 22:19 Dose: Infused Documented By: Admin: 01/28/25 21:28 Dose: 200 mls/hr Documented By: brendan Vancomycin HCl 1,250 mg/ (Sodium Chloride) 275 mls @ 200 mls/hr IV ONE ONE Stop: 01/28/25 22:22 Last Infusion: 01/29/25 03:23 Dose: Infused Documented By: Admin: 01/28/25 23:25 Dose: 200 mls/hr Documented By: REUBEN Calcium Gluconate () 1,000 mg in 60 mls @ 240 mls/hr IV NOW STA Stop: 01/29/25 14:29 Last Infusion: 01/29/25 17:05 Dose: Infused Documented By: Admin: 01/29/25 16:48 Dose: 240 mls/hr Documented By: OLEKSANDR Ioversol (Optiray 320 100ml) 94 ml IV ONCE ONE Stop: 01/28/25 15:38 Last Admin: 01/28/25 15:37 Dose: 94 ml Documented By: MAYA Ioversol (Optiray 320 125ml) 120 ml IV ONCE ONE Stop: 01/29/25 09:48 Last Admin: 01/29/25 09:47 Dose: 120 ml Documented By: JAMEE Metoprolol Succinate (Metoprolol Succ 50mg Ext Rel Tab) 100 mg PO QPM WALT Stop: 02/27/25 20:59 Last Admin: 01/28/25 22:21 Dose: Not Given Documented By: REUBEN Ondansetron HCl (Ondansetron Inj 2 Mg/Ml 2 Ml Vial) 4 mg IV NOW STA Stop: 01/28/25 13:55 Last Admin: 01/28/25 14:49 Dose: 4 mg Documented By: TYREE Potassium Chloride (Potassium Chloride Crtab 20 Meq Tabcr) 20 meq PO BID WALT Stop: 02/27/25 20:59 Last Admin: 01/28/25 22:20 Dose: Not Given Documented By: REUBEN Potassium Chloride (Potassium Chloride 10 Meq Tabcr) 20 meq PO BID WALT Stop: 02/27/25 22:11 Last Admin: 01/29/25 09:46 Dose: Not Given Documented By: Admin: 01/28/25 23:43 Dose: Not Given Documented By: REUBEN Imaging Data Radiologist's Impression: Venous Doppler Study 01/28/25 13:54 Technique: Venous ultrasound evaluation was performed utilizing grayscale, color Doppler and wave form evaluation. Images were also obtained with and without compression Findings: The bilateral common femoral, superficial femoral, popliteal, and visualized calf veins demonstrate normal anechoic lumens with full compressibility. Normal flow is seen on color Doppler images. Expected waveforms were produced with augmentation maneuvers There are small bilateral inguinal lymph nodes, likely benign Impression: No evidence of deep venous thrombosis Electronically signed by Alexis High 01-28-2025 4:58 PM Chest X-Ray 01/28/25 13:56 Chest x-ray, 2 views History: Chest pain. Comparison: January 25, 2025 CT chest correlate. Study report not available at the time of dictation. Findings: Lung volume slightly decreased. Bronchovascular crowding. Nonspecific prominent mild diffuse bilateral increased interstitial markings. Lungs are otherwise clear. No acute pleural disease. Pulmonary vasculature is prominent. No sergio edema. Cardiomediastinal silhouette is within normal limits. Impression: Nonspecific mild diffuse increased bilateral interstitial markings. This unlikely represents pulmonary vascular congestion although this cannot be excluded. Interstitial inflammatory or infectious pneumonitis not excluded. Consider follow-up exam after therapy. Electronically signed by Chau Chinchilla 01-28-2025 5:07 PM Abdomen/Pelvis CT 01/28/25 14:00 CT SCAN OF THE ABDOMEN AND PELVIS WITH IV CONTRAST CLINICAL HISTORY: Generalized abdominal pain. Distention. COMPARISON STUDY: Abdominal CT dated 01/25/2025. TECHNIQUE: Following the IV administration of 94 cc of Optiray 320, CT scan of the abdomen and pelvis is performed from the lung bases to the proximal femora. Images are reviewed in the axial, sagittal, and coronal planes. IV contrast was administered without complication. A dose lowering technique was utilized adhering to the principles of ALARA. CT DOSE: 609.2 mGy.cm FINDINGS: Lung bases: The heart is mildly enlarged and without pericardial effusion. The coronary arteries are densely calcified. The lung bases are clear noting bibasilar atelectasis. Liver: The contrast-enhanced liver is normal in size, contour, and attenuation. There is mild to moderate intrahepatic biliary ductal dilatation. The hepatic veins and portal veins are patent. Gallbladder: Surgically absent noting clips in the gallbladder fossa. Spleen: The spleen is markedly enlarged, measuring 21.5 cm in length. Pancreas: Moderately atrophic and grossly unremarkable. Adrenal glands: Unremarkable. Kidneys: The contrast enhanced kidneys are normal in size and without hydronephrosis. The kidneys enhance symmetrically. Abdominal vasculature: The abdominal aorta is normal in course and caliber noting mild to moderate atherosclerotic calcification. Bowel: There is no bowel obstruction. Residual enteric contrast is seen throughout the colon. There is moderate to severe constipation. A portion of the normal appendix is seen in the right lower quadrant on image #221. Peritoneum: There is trace perisplenic ascites. No intraperitoneal free air is seen. Lymphadenopathy: There is bulky lymphadenopathy seen throughout the abdomen and pelvis comment is not appreciably changed from 01/25/2025. An aortocaval node on image #118 measures approximate 6 x 3.5 cm. A left periaortic node image #145 measures 2.5 x 2.1 cm, and a right external iliac chain node on image #283 measures 4.5 x 2.6 cm. There is confluent soft tissue thickening seen throughout the iliac chain bilaterally and in the presacral space. Pelvic viscera: The bladder is normal as visualized. The uterus is surgically absent. No adnexal lesion is seen. Skeletal structures: The skeletal structures are heterogeneously osteopenic. Degenerative change and scoliosis is noted in the lumbar spine. No lytic or blastic lesions are seen. Soft tissues: There is body wall edema. IMPRESSION: 1. Moderate to severe constipation. 2. There is bulky lymphadenopathy throughout the abdomen and pelvis with marked splenomegaly consistent with the known history of a lymphoproliferative disorder. This has not appreciably changed from 01/25/2025. 3. Diffuse soft tissue thickening is seen throughout the iliac chain bilaterally and in the presacral/perirectal space. This is likely related to the lymphoproliferative process. A superimposed proctitis would be impossible to exclude and clinical correlation will be essential. 4. Cardiomegaly noting coronary artery atherosclerosis. 5. Additional findings as above. ACT 112: Negative or not required by law. Electronically signed by: Abraham Cornejo M.D. 01/28/2025 4:21 PM Discharge Plan Visit Data Chief Complaint: Swelling/Edema to Extremity ED Provider: Ayana Rhodes ED Midlevel Provider: Itzel Ramey Discharge Problem: Bilateral lower extremity edema, Lymphoma, Hypocalcemia, Elevated troponin Patient Disposition: Admitted As Inpatient Condition: Good Discharge Instructions Interventions: ED Discharge Assessment Last Done: 01/28/25 22:19
[2025-01-28] MEDS: HYDROmorphone INJ 0.5 MG/0.5 ML SYR IV STA (14:49)
[2025-01-28] MEDS: ONDANSETRON INJ 2 MG/ML 2 ML VIAL IV STA (14:49)
[2025-01-28 14:52] LABS: Potassium 3.7 mmol/L (3.5-5.1)
[2025-01-28 14:54] LABS: Alanine Aminotransferase 20.0 U/L (7-52); Albumin Globulin Ratio 2.2 (0.9-2); Albumin Level 3.9 gm/dl (3.4-5.0); Alkaline Phosphatase 119.0 U/L (34-104); Anion Gap 0.0 (3-11); Bilirubin,Total 0.8 mg/dl (0.2-1.0); Blood Urea Nitrogen 16.0 mg/dl (6-23); Calcium 7.3 mg/dl (8.6-10.3); Carbon Dioxide 31.0 mmol/L (21-32); Chloride 95.0 mmol/L (98-107); Creatinine Clr Calc Pharmacy 50.7 ml/min; Globulin 1.8 gm/dl (2.5-4.0); Glucose 89.0 mg/dl (70-99(Fasting)); Lipase 11.0 U/L (11-82); Sodium 126.0 mmol/L (136-145); Total Protein 5.7 gm/dl (6.0-8.3)
[2025-01-28 14:56] LABS: INR 1.1 (0.9-1.1); Partial Thromboplastin Time 24 Seconds (21-31); Prothrombin Time 11.2 Seconds (9.0-12.0)
[2025-01-28 15:34] LABS: Hematocrit (blood only) 30.4 % (37.0-47.0); Hemoglobin 8.7 g/dl (12.0-16.0); Mean Corpuscular Hemoglobin 24.3 pg (25.0-34.0); Mean Corpuscular Volume 84.9 fL (80.0-100.0); Platelet Count 79 K/uL (130-400); RDW Standard Deviation 60.0 fL (36.4-46.3); Red Blood Count 3.58 M/uL (4.20-5.40); White Blood Count 368.63 K/ul (4.8-10.8)
[2025-01-28 15:36] LABS: ALC (manual) 364.94 K/uL (1.2-3.4); ANC (manual) 3.69 K/uL (1.4-6.5)
[2025-01-28] MEDS: OPTIRAY 320 100ml IV ONE (15:37)
--- NOTE | 2025-01-28 16:23 | CT Scan Report ---
CT SCAN OF THE ABDOMEN AND PELVIS WITH IV CONTRAST CLINICAL HISTORY: Generalized abdominal pain. Distention. COMPARISON STUDY: Abdominal CT dated 01/25/2025. TECHNIQUE: Following the IV administration of 94 cc of Optiray 320, CT scan of the abdomen and pelvi s is performed from the lung bases to the proximal femora. Images are reviewed in the axial, sagittal , and coronal planes. IV contrast was administered without complication. A dose lowering technique wa s utilized adhering to the principles of ALARA. CT DOSE: 609.2 mGy.cm FINDINGS: Lung bases: The heart is mildly enlarged and without pericardial effusion. The coronary arteries are densely calcified. The lung bases are clear noting bibasilar atelectasis. Liver: The contrast-enhanced liver is normal in size, contour, and attenuation. There is mild to mode rate intrahepatic biliary ductal dilatation. The hepatic veins and portal veins are patent. Gallbladder: Surgically absent noting clips in the gallbladder fossa. Spleen: The spleen is markedly enlarged, measuring 21.5 cm in length. Pancreas: Moderately atrophic and grossly unremarkable. Adrenal glands: Unremarkable. Kidneys: The contrast enhanced kidneys are normal in size and without hydronephrosis. The kidneys enh ance symmetrically. Abdominal vasculature: The abdominal aorta is normal in course and caliber noting mild to moderate at herosclerotic calcification. Bowel: There is no bowel obstruction. Residual enteric contrast is seen throughout the colon. There i s moderate to severe constipation. A portion of the normal appendix is seen in the right lower quadra nt on image #221. Peritoneum: There is trace perisplenic ascites. No intraperitoneal free air is seen. Lymphadenopathy: There is bulky lymphadenopathy seen throughout the abdomen and pelvis comment is not appreciably changed from 01/25/2025. An aortocaval node on image #118 measures approximate 6 x 3.5 c m. A left periaortic node image #145 measures 2.5 x 2.1 cm, and a right external iliac chain node on image #283 measures 4.5 x 2.6 cm. There is confluent soft tissue thickening seen throughout the iliac chain bilaterally and in the presacral space. Pelvic viscera: The bladder is normal as visualized. The uterus is surgically absent. No adnexal lesi on is seen. Skeletal structures: The skeletal structures are heterogeneously osteopenic. Degenerative change and scoliosis is noted in the lumbar spine. No lytic or blastic lesions are seen. Soft tissues: There is body wall edema. IMPRESSION: 1. Moderate to severe constipation. 2. There is bulky lymphadenopathy throughout the abdomen and pelvis with marked splenomegaly consiste nt with the known history of a lymphoproliferative disorder. This has not appreciably changed from . 3. Diffuse soft tissue thickening is seen throughout the iliac chain bilaterally and in the presacral /perirectal space. This is likely related to the lymphoproliferative process. A superimposed proctiti s would be impossible to exclude and clinical correlation will be essential. 4. Cardiomegaly noting coronary artery atherosclerosis. 5. Additional findings as above. ACT 112: Negative or not required by law. Electronically signed by: Abraham Cornejo M.D. 01/28/2025 4:21 PM
[2025-01-28] MEDS: SODIUM CHLORIDE 0.9% 1,000 ML IV ONE (17:05)
--- NOTE | 2025-01-28 17:10 | Ultrasound Report ---
Technique: Venous ultrasound evaluation was performed utilizing grayscale, color Doppler and wave form evaluation. Images were also obtained with and without compression Findings: The bilateral common femoral, superficial femoral, popliteal, and visualized calf veins demonstrate normal anechoic lumens with full compressibility. Normal flow is seen on color Doppler images. Expected waveforms were produced with augmentation maneuvers There are small bilateral inguinal lymph nodes, likely benign Impression: No evidence of deep venous thrombosis Electronically signed by Alexis High 01-28-2025 4:58 PM
--- NOTE | 2025-01-28 17:10 | XRay Report ---
Chest x-ray, 2 views History: Chest pain. Comparison: January 25, 2025 CT chest correlate. Study report not available at the time of dictation. Findings: Lung volume slightly decreased. Bronchovascular crowding. Nonspecific prominent mild diffuse bilateral increased interstitial markings. Lungs are otherwise clear. No acute pleural disease. Pulmonary vasculature is prominent. No sergio edema. Cardiomediastinal silhouette is within normal limits. Impression: Nonspecific mild diffuse increased bilateral interstitial markings. This unlikely represents pulmonary vascular congestion although this cannot be excluded. Interstitial inflammatory or infectious pneumonitis not excluded. Consider follow-up exam after therapy. Electronically signed by Chau Chinchilla 01-28-2025 5:07 PM
[2025-01-28 17:57] LABS: Appearance Urine Clear (Clear); Glucose Urine UA Negative (Negative)
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
[2025-01-28] MEDS ORDERED: VANCOMYCIN CONSULT ACTIVE PRN (19:12)
[2025-01-28] MEDS ORDERED: ZOLPIDEM TARTRATE 5 MG TAB PO PRN ×2 (19:16→22:12)
[2025-01-28] MEDS ORDERED: BUTALBITAL/ACETAMIN/CAFFEINE TAB PO PRN (19:17)
--- NOTE | 2025-01-28 19:23 | Electrocardiogram Report ---
Test Reason : Blood Pressure : */* mmHG Vent. Rate : 63 BPM Atrial Rate : * BPM P-R Int : * ms QRS Dur : 80 ms QT Int : 404 ms P-R-T Axes : * -15 -19 degrees QTcB Int : 413 ms Sinus rhythm Moderate voltage criteria for LVH, may be normal variant ( R in aVL , Jake product ) Nonspecific T wave abnormality Abnormal ECG When compared with ECG of 14-Dec-2024 10:33, Criteria for Inferior infarct are no longer Present Confirmed by Abhijit Garnica ([id number]) on 01/28/2025 7:22:51 PM Referred By: REFERRED SELF Confirmed By: Abhijit Garnica
[2025-01-28] MEDS: BUTALBITAL/ACETAMIN/CAFFEINE TAB PO STA (20:54)
[2025-01-28] MEDS: CYCLOBENZAPRINE HCL 10 MG TAB PO ONE (20:54)
[2025-01-28] MEDS: ONDANSETRON INJ 2 MG/ML 2 ML VIAL IV PRN (20:54)
[2025-01-28] MEDS: guaiFENesin 600 MG TABCR PO SCH (21:19)
[2025-01-28] MEDS: PIPERACILLIN/TAZOBACTAM 4.5 GM/100 ML BAG IV ONE (21:28)
[2025-01-28] MEDS ORDERED: NON-FORMULARY MEDICATION (Magic Swizzle 1 EA) PO PRN (22:12)
[2025-01-28] MEDS ORDERED: LOPERAMIDE HCL 2 MG CAP PO PRN (22:12)
[2025-01-28] MEDS ORDERED: PROMETHAZINE HCL 25 MG TAB PO PRN (22:12)
[2025-01-28] MEDS ORDERED: METOPROLOL TARTRATE 50 MG TAB PO PRN (22:12)
[2025-01-28] MEDS ORDERED: guaiFENesin 600 MG TABCR PO PRN (22:12)
[2025-01-28] MEDS ORDERED: TRIAMCINOLONE ACET NASAL SPRAY 10.8ML BTL PRN (22:12)
[2025-01-28] MEDS ORDERED: OXYMETAZOLINE 0.05% 30 ML BTL PRN (22:12)
[2025-01-28] MEDS: VANCOMYCIN HCL 750 MG in SODIUM CHLORIDE 0.9% 250 ML IV SCH (22:20)
[2025-01-28] MEDS: POTASSIUM CHLORIDE CRTAB 20 MEQ TABCR PO SCH (22:20)
[2025-01-28] MEDS: METOPROLOL SUCC 50MG EXT REL TAB PO SCH (22:21)
[2025-01-28] MEDS ORDERED: ARTIFICIAL TEARS OP PRN (22:44)
[2025-01-28] MEDS ORDERED: FIRST - Mouthwash BLM 5 ML UDP PO PRN (23:22)
[2025-01-28] MEDS: VANCOMYCIN HCL 1,250 MG in SODIUM CHLORIDE 0.9% 250 ML IV ONE (23:25)
[2025-01-28] MEDS: ZANUBRUTINIB 80 MG CAP PO SCH (23:28)
[2025-01-28] MEDS: POTASSIUM CHLORIDE 10 MEQ PO SCH (23:29)
[2025-01-28] MEDS: OFLOXACIN 0.3% 75 DROPS/5 ML BTL OPB SCH (23:32)
[2025-01-28] MEDS: KETOROLAC 0.5% OP SOLN 5 ML BTL OPB SCH (23:32)
[2025-01-28] MEDS: ACYCLOVIR 400 MG TAB PO SCH (23:38)
[2025-01-28] MEDS: CYCLOBENZAPRINE HCL 10 MG TAB PO SCH (23:39)
[2025-01-28] MEDS: MECLIZINE HCL 25 MG TAB PO SCH (23:39)
[2025-01-28] MEDS: PILOCARPINE HCL 5 MG TABLET PO SCH (23:42)
[2025-01-28] MEDS: POTASSIUM CHLORIDE 10 MEQ TABCR PO SCH (23:43)
[2025-01-28] MEDS: MoRPHine SULFATE CR 15 MG TABCR PO SCH (23:57)
[2025-01-29] MEDS ORDERED: FLUTICASONE PROPIONATE NA SPR 16 GM BTL PRN (00:25)
[2025-01-29] MEDS: TIMOLOL MALEATE 0.5% OP SOLN 5 ML BTL OP SCH (00:45)
[2025-01-29] MEDS: PIPERACILLIN/TAZOBACTAM 4.5 GM/100 ML BAG IV SCH (03:02)
[2025-01-29] MEDS: LEVOTHYROXINE SODIUM 175 MCG TABLET PO SCH (03:04)
[2025-01-29] MEDS: BUTALBITAL/ACETAMIN/CAFFEINE TAB PO PRN (06:34)
[2025-01-29 07:46] LABS: Hematocrit (blood only) 26.7 % (37.0-47.0); Hemoglobin 7.7 g/dl (12.0-16.0); Mean Corpuscular Hemoglobin 25.0 pg (25.0-34.0); Mean Corpuscular Volume 86.7 fL (80.0-100.0); Platelet Count 66 K/uL (130-400); RDW Standard Deviation 61.2 fL (36.4-46.3); Red Blood Count 3.08 M/uL (4.20-5.40); White Blood Count 297.21 K/ul (4.8-10.8)
[2025-01-29 07:49] LABS: Alanine Aminotransferase 15.0 U/L (7-52); Albumin Globulin Ratio 1.7 (0.9-2); Albumin Level 2.9 gm/dl (3.4-5.0); Alkaline Phosphatase 95.0 U/L (34-104); Anion Gap 2.0 (3-11); Bilirubin,Total 0.8 mg/dl (0.2-1.0); Blood Urea Nitrogen 13.0 mg/dl (6-23); Calcium 7.4 mg/dl (8.6-10.3); Carbon Dioxide 32.0 mmol/L (21-32); Chloride 101.0 mmol/L (98-107); Creatinine Clr Calc Pharmacy 47.7 ml/min; Globulin 1.7 gm/dl (2.5-4.0); Glucose 90.0 mg/dl (70-99(Fasting)); Potassium 4.2 mmol/L (3.5-5.1); Sodium 135.0 mmol/L (136-145); Total Protein 4.6 gm/dl (6.0-8.3)
[2025-01-29 07:51] LABS: ALC (manual) 285.32 K/uL (1.2-3.4); ANC (manual) 8.92 K/uL (1.4-6.5); Anisocytosis Present; Smudge Cells Present
[2025-01-29] MEDS: CETIRIZINE HCL 10 MG TABLET PO SCH (08:23)
[2025-01-29] MEDS: METOPROLOL SUCC 50MG EXT REL TAB PO SCH (08:25)
--- NOTE | 2025-01-29 09:34 | Pharmacy Report ---
Pharmacy PK ABX Note - Date of Service January 29, 2025 - Assessment and Plan Assessment 69 year old F receiving vancomycin and zosyn for treatment of leg cellulitis. 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 Renal function stable. Blood cultures pending. Day # 1 of antimicrobial therapy Plan Vancomycin * Loading dose: 1250 mg IV x 1 * Maintenance dose: 1250 mg IV every 24 hours * Regimen is predicted to achieve target AUC/ALLA of 400-600 mg/L.hr * Will obtain a level after 48h of therapy, or sooner if clinically indicated Pharmacy will continue to follow and will adjust dose/frequency as necessary. Thank you. Pharmacy has transitioned to AUC monitoring for vancomycin. AUC/ALLA is the preferred PK/PD target and is associated with decreased risk of nephrotoxicity compared to traditional trough targets.
[2025-01-29] MEDS: OPTIRAY 320 125ml IV ONE (09:47)
--- NOTE | 2025-01-29 10:15 | CT Scan Report ---
Clinical history: Pain Technique: Axial computed tomography images were obtained of the abdomen, pelvis, lower extremities after the administration of intravenous contrast according to the CT angiogram protocol. Oral contrast was given No prior examination is available for comparison Findings: The abdominal aorta appears unremarkable with no sign of aneurysm or dissection. No stenosis is seen involving it. The celiac axis and superior mesenteric artery are not visualized. The visualized renal arteries appear unremarkable. The right common iliac, external iliac, and internal iliac arteries appear unremarkable. No stenosis is seen of the right common femoral artery. The right profunda femoral artery is patent. There is no significant stenosis of the right superior femoral or popliteal arteries. The right anterior tibial and peroneal arteries are patent. The right posterior tibial artery appears occluded proximally The left common iliac, external iliac, and internal iliac arteries appear unremarkable. No stenosis is seen of the left common femoral artery. The left profunda femoral artery is patent. There is no significant stenosis of the left superior femoral or popliteal arteries. The left anterior tibial and peroneal arteries appear normal. The distal left posterior tibial artery is diminutive, which may be on a congenital basis Only the lower portion of the liver is visualized. The visualized liver is overall of normal size, attenuation, and contour with no sign of cirrhosis or significant fatty infiltration. No liver mass lesion is seen. The portal vein is patent. The gallbladder is not visualized. No bile duct dilatation is noted. The spleen is enlarged measuring 20 cm. No focal splenic lesion is evident. The pancreas appears normal with no sign of acute or chronic pancreatitis and no mass lesion noted. The pancreatic duct is of normal caliber. The adrenal glands appear unremarkable. The upper kidneys are not visualized. There is no hydronephrosis or perinephric stranding. No renal mass lesion is identified. There is confluent retroperitoneal adenopathy, measuring up to 6.8 x 3.4 cm. There is no sign of small bowel obstruction. There is constipation. There is apparent wall thickening of the sigmoid colon and rectum. No free intraperitoneal fluid or air is identified. There is bilateral iliac chain adenopathy, measuring up to 3.7 cm. No bladder mass lesion is evident. No fracture is identified. No focal osseous lesion is seen. There is severe left knee osteoarthritis. There is grade 1 anterolisthesis at L4-5. There is lumbar scoliosis and degenerative disc disease. There are bilateral calcaneal spurs Impression: 1. Bulky abdominal and pelvic adenopathy, consistent with metastatic disease or lymphoma 2. Apparent wall thickening of the traversing right colon and rectum. While this could be due to inflammatory bowel disease or infectious colitis,: Carcinoma is also possible 3. Severe splenomegaly 4. Normal-appearing abdominal aorta 5. No definite stenosis of the pelvic or proximal bilateral leg arteries 6. Apparent occlusion of the right [employer] ACT 112: Positive. There are findings on this exam that require communication between the performing entity and the patient following Patient Test Result Information Act ([place] ACT 112) guidelines. Electronically signed by Alexis High 01-29-2025 10:14 AM
[2025-01-29] MEDS: FLUTICASONE PROPIONATE NA SPR 16 GM BTL SCH (13:11)
[2025-01-29] MEDS: VANCOMYCIN HCL 1,250 MG in SODIUM CHLORIDE 0.9% 250 ML IV SCH (13:16)
--- NOTE | 2025-01-29 14:12 | Hospitalist Progress Note ---
Date of Service January 29, 2025 Assessment & Plan (1) Cellulitis, leg: (2) Gastric mass: Plan Diana Pan is a 69 yo woman with hx of lymphedema, sinusitis, sjogren syndrome, recurrent CLL failed multiple regime, posterior scalp lesion (biopsy positive for lymphoma), PSVT, ankylosing spondylitis, GERD, hx of PE, chronic hyponatremia, hx of chronic pain on morphine and oxycodone (following with Dr. Driscoll), papillory thyroid cancer (s/p thyroidectomy), b12 deficiency, multiple drug allergy she's has CLL since 2009 and failed multiple regime, currently on Brukinsa 160mg BID, she's has a posterior scalp lesion and biopsy positive for lymphoma she on weekly transfusion but need clearance prior to GI evaluation she's lost 30-40 lbs in 2024. she's has staging CT scan every 3-4 months and that found diffuse lymphadenopathy; gastric mass, she see urology and has cystoscopy on 08/17 found inflammation int eh posterior wall and extrinsic compression from lymphadenopathy. she's was about to see GI (Jeff[facility]), but they need to rule out mass her spinal column prior to colonoscopy since ; she has diffuse skin lesion in her upper back and right anterior shoulder and oncology trying to has dermatology evaluate her she's been having worsening leg edema and did not improved with lasix and metolazoine since yesterday, she's been having worsening discharge from her leg, foot edema and skin lesions. in her toes she's came to our hospital and was found to has b/l celllulitis, hypotension 1. b/l cellulitis with hypotension, chronic sinusitis 2. hypocalcemia 3. hx of MSSA infection. 4. weight loss of 30-40 lbs 5. polypoid lesion in the stomach 6. recurrent anemia needing weekly blood transfusion 7. hx of CLL , failed multiple reegime 8. hx of DVT 9. anklosing spondylitis 10. GERD 11. hx of PE 12. migraine headache 13. hx of glaucoma 14. hypothyroidism, hx of papillary thryoid cancer s/p surgery 1. b/l cellulitis, sinusitis; proctitis. IV zosyn and vancomycin, that will help covered both her sinusitis and cellulitis tonight check nasal MRSA once her BP stable, will give IV lasix. she following with [facility] for and plan for colonoscopy after cleerance. 2. hypocalcemia, calcium gluconate, recheck free ionized calcium tomorrow 3. weight loss of 30-40 lbs, her CT abdomen show soft tissue thickening in the iliac chain b/l in the pre- sacral and perirectgal space also found 1.5 intraluminal polypoid inside the stomach. 4. CLL currently on brukinsa 160mg BID, she's failed multiple regime she's has a lesion in the posterior scalp which reportedly biopsy positive for lymphoma she has lesion palpable lesion in her lumbar region and following with specialist for evaluation she severely claustrophobia and cannot tolerate MRI she has diffuse skin outbreak, and oncology was requested dermatology evaluation 5. hx of papillary thyroid cancer, hypothyroidism levothyroxine 175mcg 6. PSVT, metoprolol XL 150mg morning, metoprolol XL 100mg evening she's on PRN metoprolol tartrate she's on lasix 60mg and she's on metolazone before lasix 7. recurrent sinusitis she was on augmentin at home, she's on zosyn while here she's takg afrin oxymetazoline and pseudoephedrine 8. sjogren disease, she's on pilocarpine 5mg QID 9. chronic back pain, ankylosing spondylitis she's on morphine ER 30mg BID and oxycodone 20mg TID PRN she's on nabumetone 750mg BID and toradol oral 10mg TID cyclobenzaprine 10mg TID 10. GERD, protonix 40mg BID, PRN pepcid. 11. migraine headache, sumatriptan PRN, she's on PRN fiorcet. 12. glaucoma-timolol maleate 0.5 daily BID she's reportedly on on ofloxacin 0.3% eye drop and olopatadine 0.1% BID and ketorolax 0.5% eye drop. 13. prophylaxis, she's on ayclovir 400mg TID family updated; update at bedside code status: Full code Admission and Anticipated Discharge Date Admission Date: January 28, 2025 Subjective she's still has significant leg pains, edema, and her BP remained soft she's will be on IV antibiotics for cellulitis, sinusitis, her CT abdomen concern for poctitis she's has several lesion in the lumbar, sacral region, her hansard reporter trying to located a specialist that can further evaluate the lesions to r/o lymphoma or other malignancy Physical Exam Physical Exam: VITALS: Reviewed. WEIGHT/BMI reviewed. GEN: chronically ill appearing HEENT -Head: NC/AT; skin: + for lesion in the leg, back, no discharge, no bleeding NECK: Supple, with no masses. CV: RRR, no m/r/g. LUNGS: CTAB, no w/r/c. ABD: Soft, NT/ND, NBS, no masses or organomegaly. : no CVA tenderess SKIN: Warm, well perfused. No skin rashes or abnormal lesions. MSK: thoracic and lumbar spine non-tender to light palpitation NEURO: AAOx3 Results & Data Results & Data Vital Signs (Past 12 Hours) Vital Signs Temp Pulse Resp BP Pulse Ox O2 Del Method 01/29/25 11:35 36.7 C 63 103/49 L 97 Room Air 01/29/25 07:51 36.6 C 70 18 96/57 L 97 Room Air Laboratory Results Laboratory Results - last 72 hr 01/28/25 01/28/25 01/28/25 14:13 17:11 21:26 WBC 368.63 H* RBC 3.58 L Hgb 8.7 L Hct 30.4 L MCV 84.9 MCH 24.3 L MCHC 28.6 L RDW Std Deviation 60.0 H RDW Coeff of Jillian 21.0 H Plt Count 79 L MPV 9.6 Neutrophils % (Manual) 1 Lymphocytes % (Manual) 99 Monocytes % (Manual) Neutrophils # (Manual) 3.69 Total Absolute Neuts 3.69 Lymphocytes # (Manual) 364.94 H Total Abs Lymphocytes 364.94 H Monocytes # (Manual) Smudge Cells Anisocytosis PT 11.2 INR 1.1 APTT 24 PTT Ratio 0.9 Sodium 126 L Potassium 3.7 Chloride 95 L Carbon Dioxide 31 Anion Gap 0 L BUN 16 Creatinine 0.84 Est Cr Clr Drug Dosing 50.7 eGFR 75.65 BUN/Creatinine Ratio 19.0 Glucose 89 Lactate 0.3 L Calcium 7.3 L Total Bilirubin 0.8 AST 44 H ALT 20 Alkaline Phosphatase 119 H Troponin I High Sens 21.4 H 5.5 D B-Natriuretic Peptide 145 H Total Protein 5.7 L Albumin 3.9 Globulin 1.8 L Albumin/Globulin Ratio 2.2 H Lipase 11 Urine Color Urine Appearance Urine pH Ur Specific [place] Urine Protein Urine Glucose (UA) Urine Ketones Urine Blood Urine Nitrite Urine Bilirubin Urine Urobilinogen Ur Leukocyte Esterase Urine Comment 01/28/25 01/29/25 01/29/25 Unknown 06:05 07:08 WBC 297.21 H* RBC 3.08 L Hgb 7.7 L Hct 26.7 L MCV 86.7 MCH 25.0 MCHC 28.8 L RDW Std Deviation 61.2 H RDW Coeff of Jillian 21.2 H Plt Count 66 L MPV 9.4 Neutrophils % (Manual) 3 Lymphocytes % (Manual) 96 Monocytes % (Manual) 1 Neutrophils # (Manual) 8.92 H Total Absolute Neuts 8.92 H Lymphocytes # (Manual) 285.32 H Total Abs Lymphocytes 285.32 H Monocytes # (Manual) 2.97 H Smudge Cells Present Anisocytosis Present PT INR APTT PTT Ratio Sodium Cancelled 135 L D Potassium Cancelled 4.2 Chloride Cancelled 101 Carbon Dioxide Cancelled 32 Anion Gap Cancelled 2 L BUN Cancelled 13 Creatinine Cancelled 0.81 Est Cr Clr Drug Dosing Cancelled 47.7 eGFR Cancelled 79.02 BUN/Creatinine Ratio Cancelled 16.0 Glucose Cancelled 90 Lactate Calcium Cancelled 7.4 L Total Bilirubin Cancelled 0.8 AST Cancelled 25 ALT Cancelled 15 Alkaline Phosphatase Cancelled 95 Troponin I High Sens B-Natriuretic Peptide Total Protein Cancelled 4.6 L D Albumin Cancelled 2.9 L Globulin Cancelled 1.7 L Albumin/Globulin Ratio Cancelled 1.7 Lipase Urine Color Yellow Urine Appearance Clear Urine pH 7.5 Ur Specific [place] 1.018 Urine Protein Negative Urine Glucose (UA) Negative Urine Ketones Negative Urine Blood Negative Urine Nitrite Negative Urine Bilirubin Negative Urine Urobilinogen Negative Ur Leukocyte Esterase Negative Urine Comment Diagnostic Findings Current Inpatient Medications Acetaminophen/Butalbital/Caffeine (Butalbital/Acetamin/Caffeine Tab) 1 tab PO TID PRN PRN Reason: TENSION HEADACHES Stop: 02/27/25 22:11 Last Admin: 01/29/25 06:34 Dose: 1 tab Acyclovir (Acyclovir 400 Mg Tab) 400 mg PO TID [facility] Stop: 02/27/25 22:11 Last Admin: 01/29/25 13:13 Dose: 400 mg Artificial Tears (Artificial Tears) 1 drops OP PRN PRN PRN Reason: Dry Eyes Stop: 02/27/25 22:43 Cetirizine HCl (Cetirizine Hcl 10 Mg Tablet) 10 mg PO QAM [facility] Stop: 02/28/25 08:59 Last Admin: 01/29/25 08:23 Dose: 10 mg Cyclobenzaprine HCl (Cyclobenzaprine Hcl 10 Mg Tab) 10 mg PO TID [facility] Stop: 02/27/25 22:11 Last Admin: 01/29/25 13:16 Dose: 10 mg Famotidine (Famotidine 20 Mg Tab) 20 mg PO BID PRN PRN Reason: Heartburn Stop: 02/27/25 22:11 Fluticasone Propionate (Fluticasone Propionate Na Spr 16 Gm Btl) 2 sprays NA DAILY [facility] Stop: 02/28/25 08:59 Last Admin: 01/29/25 13:11 Dose: Not Given Guaifenesin (Guaifenesin 600 Mg Tabcr) 1,200 mg PO Q12 [facility] Stop: 02/27/25 20:59 Last Admin: 01/29/25 08:23 Dose: 1,200 mg Piperacillin Sod/Tazobactam Sod (Zosyn) 4.5 gm in 100 mls @ 25 mls/hr IV Q8H [facility]; Protocol Stop: 02/05/25 01:59 Last Admin: 01/29/25 14:08 Dose: 25 mls/hr Vancomycin HCl 1,250 mg/ (Sodium Chloride) 275 mls @ 200 mls/hr IV Q24H [facility] Stop: 02/05/25 08:59 Last Admin: 01/29/25 13:16 Dose: 200 mls/hr Ketorolac Tromethamine (Ketorolac 0.5% Op Soln 5 Ml Btl) 1 drops OPB TID [facility] Stop: 02/27/25 22:11 Last Admin: 01/29/25 13:16 Dose: 1 drops Ketorolac Tromethamine (Ketorolac Tromethamine 10 Mg Tablet) 10 mg PO TID [facility] Stop: 02/05/25 23:59 Levothyroxine Sodium (Levothyroxine Sodium 175 Mcg Tablet) 175 mcg PO DAILYBB [facility] Stop: 02/28/25 06:29 Last Admin: 01/29/25 03:04 Dose: 175 mcg Loperamide HCl (Loperamide Hcl 2 Mg Cap) 2 mg PO Q6H PRN PRN Reason: Diarrhea Stop: 02/27/25 22:11 Meclizine HCl (Meclizine Hcl 25 Mg Tab) 25 mg PO QID [facility] Stop: 02/27/25 22:11 Last Admin: 01/29/25 14:08 Dose: 25 mg Metoprolol Succinate (Metoprolol Succ 50mg Ext Rel Tab) 150 mg PO QAM [facility] Stop: 02/28/25 08:59 Last Admin: 01/29/25 08:25 Dose: 150 mg Metoprolol Tartrate (Metoprolol Tartrate 50 Mg Tab) 50 mg PO TID PRN PRN Reason: tachycardia Stop: 02/27/25 22:11 Miscellaneous (Olopatadine 0.1%: Order Awaiting Action) 1 each N/A QS [facility] Stop: 02/28/25 07:59 Last Admin: 01/29/25 14:09 Dose: Not Given Miscellaneous Information (Vancomycin Consult Active) 1 each N/A UD PRN PRN Reason: Consult Stop: 02/27/25 19:11 Morphine Sulfate (Morphine Sulfate Cr 15 Mg Tabcr) 30 mg PO BID [facility] Stop: 02/11/25 22:11 Last Admin: 01/29/25 08:34 Dose: 30 mg Multi-Ingredient Mouthwash/Gargle (First - Mouthwash Blm 5 Ml Udp) 5 ml PO Q6H PRN PRN Reason: MOUTH SORE FROM CHEMO Stop: 02/27/25 23:21 Nabumetone (Nabumetone 500 Mg Tablet) 750 mg PO BID [facility] Stop: 02/26/25 23:59 Ofloxacin (Ofloxacin 0.3% 75 Drops/5 Ml Btl) 1 drops OPB TID [facility] Stop: 02/07/25 22:11 Last Admin: 01/29/25 13:16 Dose: 1 drops Ondansetron HCl (Ondansetron Inj 2 Mg/Ml 2 Ml Vial) 4 mg IV Q6H PRN PRN Reason: Nausea Stop: 02/27/25 20:40 Last Admin: 01/28/25 20:54 Dose: 4 mg Ondansetron HCl (Ondansetron 4 Mg Od Tab) 8 mg PO TID PRN PRN Reason: NAUSEA/VOMITING Stop: 02/27/25 22:45 Oxycodone HCl (Oxycodone Hcl Ir 5 Mg Tab (Immediate Release)) 20 mg PO TID PRN PRN Reason: pain Stop: 02/11/25 22:11 Last Admin: 01/29/25 09:57 Dose: 20 mg Oxymetazoline HCl (Oxymetazoline 0.05% 30 Ml Btl) 2 sprays NA Q4H PRN PRN Reason: Congestion Stop: 02/27/25 22:11 Pantoprazole Sodium (Pantoprazole 40 Mg Tab) 40 mg PO BID [facility] Stop: 02/27/25 22:11 Last Admin: 01/29/25 08:25 Dose: 40 mg Pilocarpine HCl (Pilocarpine Hcl 5 Mg Tablet) 5 mg PO QID [facility] Stop: 02/27/25 22:11 Last Admin: 01/29/25 13:13 Dose: 5 mg Potassium Chloride (Potassium Chloride 10 Meq Caper) 20 meq PO BID [facility] Stop: 02/27/25 21:29 Last Admin: 01/29/25 08:26 Dose: 20 meq Promethazine HCl (Promethazine Hcl 25 Mg Tab) 25 mg PO Q4H PRN PRN Reason: nausea and vomiting Stop: 02/27/25 22:11 Pseudoephedrine HCl (Pseudoephedrine Hcl 30 Mg Tab) 30 mg PO DAILY PRN PRN Reason: Congestion Stop: 02/27/25 22:11 Silver Sulfadiazine (Silver Sulfadiazine 1% Cr 50 Gm Jar/Tube) 1 appln TOP BID PRN PRN Reason: wound healing Stop: 02/27/25 22:11 Sumatriptan Succinate (Sumatriptan Succinate 100 Mg Tab) 100 mg PO DAILY PRN PRN Reason: migraine headache Stop: 02/27/25 22:11 Timolol Maleate (Timolol Maleate 0.5% Op Soln 5 Ml Btl) 1 drops OP BID [facility] Stop: 02/27/25 22:11 Last Admin: 01/29/25 08:30 Dose: 1 drops Zanubrutinib (Zanubrutinib 80 Mg Cap) 160 mg PO BID [facility] Stop: 02/27/25 20:59 Last Admin: 01/29/25 08:30 Dose: 160 mg Zolpidem Tartrate (Zolpidem Tartrate 5 Mg Tab) 10 mg PO HS PRN PRN Reason: Sleep Stop: 02/27/25 22:11 Medications Administered Current Inpatient Medications Acetaminophen/Butalbital/Caffeine (Butalbital/Acetamin/Caffeine Tab) 1 tab PO TID PRN PRN Reason: TENSION HEADACHES Stop: 02/27/25 22:11 Last Admin: 01/29/25 06:34 Dose: 1 tab Acyclovir (Acyclovir 400 Mg Tab) 400 mg PO TID [place] Stop: 02/27/25 22:11 Last Admin: 01/29/25 13:13 Dose: 400 mg Artificial Tears (Artificial Tears) 1 drops OP PRN PRN PRN Reason: Dry Eyes Stop: 02/27/25 22:43 Cetirizine HCl (Cetirizine Hcl 10 Mg Tablet) 10 mg PO QAM [facility] Stop: 02/28/25 08:59 Last Admin: 01/29/25 08:23 Dose: 10 mg Cyclobenzaprine HCl (Cyclobenzaprine Hcl 10 Mg Tab) 10 mg PO TID [facility] Stop: 02/27/25 22:11 Last Admin: 01/29/25 13:16 Dose: 10 mg Famotidine (Famotidine 20 Mg Tab) 20 mg PO BID PRN PRN Reason: Heartburn Stop: 02/27/25 22:11 Fluticasone Propionate (Fluticasone Propionate Na Spr 16 Gm Btl) 2 sprays NA DAILY [facility] Stop: 02/28/25 08:59 Last Admin: 01/29/25 13:11 Dose: Not Given Guaifenesin (Guaifenesin 600 Mg Tabcr) 1,200 mg PO Q12 [facility] Stop: 02/27/25 20:59 Last Admin: 01/29/25 08:23 Dose: 1,200 mg Piperacillin Sod/Tazobactam Sod (Zosyn) 4.5 gm in 100 mls @ 25 mls/hr IV Q8H [facility]; Protocol Stop: 02/05/25 01:59 Last Admin: 01/29/25 14:08 Dose: 25 mls/hr Vancomycin HCl 1,250 mg/ (Sodium Chloride) 275 mls @ 200 mls/hr IV Q24H [facility] Stop: 02/05/25 08:59 Last Admin: 01/29/25 13:16 Dose: 200 mls/hr Ketorolac Tromethamine (Ketorolac 0.5% Op Soln 5 Ml Btl) 1 drops OPB TID [facility] Stop: 02/27/25 22:11 Last Admin: 01/29/25 13:16 Dose: 1 drops Ketorolac Tromethamine (Ketorolac Tromethamine 10 Mg Tablet) 10 mg PO TID [facility] Stop: 02/05/25 23:59 Levothyroxine Sodium (Levothyroxine Sodium 175 Mcg Tablet) 175 mcg PO DAILYBB [facility] Stop: 02/28/25 06:29 Last Admin: 01/29/25 03:04 Dose: 175 mcg Loperamide HCl (Loperamide Hcl 2 Mg Cap) 2 mg PO Q6H PRN PRN Reason: Diarrhea Stop: 02/27/25 22:11 Meclizine HCl (Meclizine Hcl 25 Mg Tab) 25 mg PO QID [facility] Stop: 02/27/25 22:11 Last Admin: 01/29/25 14:08 Dose: 25 mg Metoprolol Succinate (Metoprolol Succ 50mg Ext Rel Tab) 150 mg PO QAM [facility] Stop: 02/28/25 08:59 Last Admin: 01/29/25 08:25 Dose: 150 mg Metoprolol Tartrate (Metoprolol Tartrate 50 Mg Tab) 50 mg PO TID PRN PRN Reason: tachycardia Stop: 02/27/25 22:11 Miscellaneous (Olopatadine 0.1%: Order Awaiting Action) 1 each N/A QS [facility] Stop: 02/28/25 07:59 Last Admin: 01/29/25 14:09 Dose: Not Given Miscellaneous Information (Vancomycin Consult Active) 1 each N/A UD PRN PRN Reason: Consult Stop: 02/27/25 19:11 Morphine Sulfate (Morphine Sulfate Cr 15 Mg Tabcr) 30 mg PO BID [facility] Stop: 02/11/25 22:11 Last Admin: 01/29/25 08:34 Dose: 30 mg Multi-Ingredient Mouthwash/Gargle (First - Mouthwash Blm 5 Ml Udp) 5 ml PO Q6H PRN PRN Reason: MOUTH SORE FROM CHEMO Stop: 02/27/25 23:21 Nabumetone (Nabumetone 500 Mg Tablet) 750 mg PO BID [facility] Stop: 02/26/25 23:59 Ofloxacin (Ofloxacin 0.3% 75 Drops/5 Ml Btl) 1 drops OPB TID [facility] Stop: 02/07/25 22:11 Last Admin: 01/29/25 13:16 Dose: 1 drops Ondansetron HCl (Ondansetron Inj 2 Mg/Ml 2 Ml Vial) 4 mg IV Q6H PRN PRN Reason: Nausea Stop: 02/27/25 20:40 Last Admin: 01/28/25 20:54 Dose: 4 mg Ondansetron HCl (Ondansetron 4 Mg Od Tab) 8 mg PO TID PRN PRN Reason: NAUSEA/VOMITING Stop: 02/27/25 22:45 Oxycodone HCl (Oxycodone Hcl Ir 5 Mg Tab (Immediate Release)) 20 mg PO TID PRN PRN Reason: pain Stop: 02/11/25 22:11 Last Admin: 01/29/25 09:57 Dose: 20 mg Oxymetazoline HCl (Oxymetazoline 0.05% 30 Ml Btl) 2 sprays NA Q4H PRN PRN Reason: Congestion Stop: 02/27/25 22:11 Pantoprazole Sodium (Pantoprazole 40 Mg Tab) 40 mg PO BID [facility] Stop: 02/27/25 22:11 Last Admin: 01/29/25 08:25 Dose: 40 mg Pilocarpine HCl (Pilocarpine Hcl 5 Mg Tablet) 5 mg PO QID [facility] Stop: 02/27/25 22:11 Last Admin: 01/29/25 13:13 Dose: 5 mg Potassium Chloride (Potassium Chloride 10 Meq Caper) 20 meq PO BID [facility] Stop: 02/27/25 21:29 Last Admin: 01/29/25 08:26 Dose: 20 meq Promethazine HCl (Promethazine Hcl 25 Mg Tab) 25 mg PO Q4H PRN PRN Reason: nausea and vomiting Stop: 02/27/25 22:11 Pseudoephedrine HCl (Pseudoephedrine Hcl 30 Mg Tab) 30 mg PO DAILY PRN PRN Reason: Congestion Stop: 02/27/25 22:11 Silver Sulfadiazine (Silver Sulfadiazine 1% Cr 50 Gm Jar/Tube) 1 appln TOP BID PRN PRN Reason: wound healing Stop: 02/27/25 22:11 Sumatriptan Succinate (Sumatriptan Succinate 100 Mg Tab) 100 mg PO DAILY PRN PRN Reason: migraine headache Stop: 02/27/25 22:11 Timolol Maleate (Timolol Maleate 0.5% Op Soln 5 Ml Btl) 1 drops OP BID [facility] Stop: 02/27/25 22:11 Last Admin: 01/29/25 08:30 Dose: 1 drops Zanubrutinib (Zanubrutinib 80 Mg Cap) 160 mg PO BID [facility] Stop: 02/27/25 20:59 Last Admin: 01/29/25 08:30 Dose: 160 mg Zolpidem Tartrate (Zolpidem Tartrate 5 Mg Tab) 10 mg PO HS PRN PRN Reason: Sleep Stop: 02/27/25 22:11 PG Care Time/CCT Total # of Minutes Spent Total Time Spent with Patient: Total time spent is greater than 50% in coordination of care (as documented) at patient's floor/unit and/or counseling patient: Coding Level of Care Code 53921 SUB INP/OBS CARE 05/01MIN Diagnoses Cellulitis, leg L03.119 Gastric mass K31.89 Time Spent (min) 20
[2025-01-29] MEDS: CALCIUM GLUCONATE 1,000 MG/60 ML BAG IV STA (16:48)
[2025-01-29] MEDS: KETOROLAC TROMETHAMINE 10 MG TABLET PO SCH (16:48)
[2025-01-29] MEDS: SILVER SULFADIAZINE 1% CR 50 GM JAR/TUBE TOP PRN (21:52)
[2025-01-30] MEDS ORDERED: SODIUM CHLORIDE 0.9% 100 ML IV PRN ×2 (08:00→09:55)
[2025-01-30] MEDS ORDERED: KETOROLAC TROMETHAMINE 10 MG TABLET PO SCH (09:00)
[2025-01-30 09:16] LABS: Anion Gap 3.0 (3-11); Blood Urea Nitrogen 13.0 mg/dl (6-23); Calcium 7.6 mg/dl (8.6-10.3); Carbon Dioxide 31.0 mmol/L (21-32); Chloride 101.0 mmol/L (98-107); Creatinine Clr Calc Pharmacy 43.9 ml/min; Glucose 100.0 mg/dl (70-99(Fasting)); Potassium 3.8 mmol/L (3.5-5.1); Sodium 135.0 mmol/L (136-145)
--- NOTE | 2025-01-30 11:36 | Hospitalist Progress Note ---
Date of Service January 30, 2025 Assessment & Plan (1) Cellulitis, leg: (2) Gastric mass: Plan Diana Pan is a 69 yo woman with hx of lymphedema, sinusitis, sjogren syndrome, recurrent CLL failed multiple regime, posterior scalp lesion (biopsy positive for lymphoma), PSVT, ankylosing spondylitis, GERD, hx of PE, chronic hyponatremia, hx of chronic pain on morphine and oxycodone (following with Dr. Driscoll), papillory thyroid cancer (s/p thyroidectomy), b12 deficiency, multiple drug allergy she's has CLL since 2009 and failed multiple regime, currently on Brukinsa 160mg BID, she's has a posterior scalp lesion and biopsy positive for lymphoma she on weekly transfusion but need clearance prior to GI evaluation she's lost 30-40 lbs in 2024. she's has staging CT scan every 3-4 months and that found diffuse lymphadenopathy; gastric mass, she see urology and has cystoscopy on 08/17 found inflammation int eh posterior wall and extrinsic compression from lymphadenopathy. she's was about to see [facility] ([facility]), but they need to rule out mass her spinal column prior to colonoscopy since ; she has diffuse skin lesion in her upper back and right anterior shoulder and oncology trying to has dermatology evaluate her she's been having worsening leg edema and did not improved with lasix and metolazoine since yesterday, she's been having worsening discharge from her leg, foot edema and skin lesions. in her toes she's came to our hospital and was found to has b/l celllulitis, hypotension 1. b/l cellulitis with hypotension, chronic sinusitis 2. hypocalcemia 3. hx of MSSA infection. 4. weight loss of 30-40 lbs 5. polypoid lesion in the stomach 6. recurrent anemia needing weekly blood transfusion 7. hx of CLL , failed multiple reegime 8. hx of DVT 9. anklosing spondylitis 10. GERD 11. hx of PE 12. migraine headache 13. hx of glaucoma 14. hypothyroidism, hx of papillary thryoid cancer s/p surgery 1. b/l cellulitis, sinusitis; proctitis. IV zosyn and vancomycin, that will help covered both her sinusitis and cellulitis her leg pain and discharge somewhat improved now her BP stable, beginning IV lasix check nasal MRSA proctitis that was found on CT abdomen, she's seeing Dr. Soto ([facility]) she following with [facility] for and plan for colonoscopy after clearance. 2. hypocalcemia, calcium gluconate, 3. weight loss of 30-40 lbs, her CT abdomen show soft tissue thickening in the iliac chain b/l in the pre- sacral and perirectgal space also found 1.5 intraluminal polypoid inside the stomach. she was seeing GI, Dr. Soto for EGD and plan for EUS she's has severe claustrophobia with MRI 4. CLL she's on brukinsa 160mg BID Savannah Couch is working with [facility] hematology, diagnosed in 2009, started treatment on Apr 2014 with bendamustine/rituximab but she's stop after 3 cycle of treatment given her nausea and vomiting. dec 2016, started obinutuzumab but dc after 4 cycles given cardiac issues, GI symptoms and BP issues on 01/2018, started on venectoclax and has remission on 12/2022, CT scan show disease progression, briefly on IV rituximab but then has upper abdominal pain, headache and body achies she was on acalabrutinib 100mg PO daily on 09/07/2023 but noted disease progression has posterior scalp biopsy (January 15, 2024), dr. 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 hx of papillary thyroid cancer, hypothyroidism levothyroxine 175mcg 6. PSVT, metoprolol XL 150mg morning, metoprolol XL 100mg evening she's on PRN metoprolol tartrate she's on lasix 60mg and she's on metolazone before lasix 7. recurrent sinusitis she was on augmentin at home, she's on zosyn while here she's takg afrin oxymetazoline and pseudoephedrine 8. sjogren disease, she's on pilocarpine 5mg QID 9. chronic back pain, ankylosing spondylitis she's on morphine ER 30mg BID and oxycodone 20mg TID PRN she's on nabumetone 750mg BID and toradol oral 10mg TID cyclobenzaprine 10mg TID 10. GERD, protonix 40mg BID, PRN pepcid. 11. migraine headache, sumatriptan PRN, she's on PRN fiorcet. 12. glaucoma-timolol maleate 0.5 daily BID she's reportedly on on ofloxacin 0.3% eye drop and olopatadine 0.1% BID and ketorolax 0.5% eye drop. 13. prophylaxis, she's on ayclovir 400mg TID family updated; update at bedside code status: Full code Admission and Anticipated Discharge Date Admission Date: January 28, 2025 Subjective for her b/l cellulitis, her leg pain and oozing and discharge improved. plan for IV lasix to address her lymphedema for her diffuse skin rash, she's was following with steel wool machine operator, Dr. Vish Morris at [facility] however, he's retiring and patient struck between getting referral either from PCP versus from home lighting adviser she does not want to travel outside [place] to see dermatology she's has lower abdominal discomfort, she's following with Dr. Soto she's claustrophobia and cannot do MRI abdomen. per the patient, Dr. Soto ([facility]) need to r/o malignancy around her spine and sacrum prior to colonoscopy she has a lump on her posterior scalp, s/p biopsy, which later positive for lymphoma Review of Systems Review of Systems: Constitutional: + for weight loss past year ENT/Mouth: + for dental infection; + for recurrent sinusitis; + for dry mouth from Sjogren Cardiovascular:no chest pain Gastrointestinal: + for lower abdominal pain; negative for daily bloody stool; + for nausea and vomiting after chemotherapy Genitourinary: no hematuria; + for hx of heavy menstrual period s/p hysterectomy at age 40 Musculoskeletal: + for chronic low back pain; + for ankylosing spondylitis Skin: + for skin lesion in her back and right anterior shoulder Heme/Lymph: + for lymphadenopathy in her lumbar/sacral region; Physical Exam Physical Exam: VITALS: Reviewed. WEIGHT/BMI reviewed. GEN: chronically ill appearing HEENT -Head: NC/AT; NECK: Supple, with no masses. CV: RRR, no m/r/g. LUNGS: CTAB, no w/r/c. ABD: lower abdominal tenderness; no ascites noted. : no CVA tenderness SKIN: multiple skin lesion in the upper back and leg. . MSK: leg tender to palpation; + for edema; + for discharge NEURO: AAox3 Results & Data Results & Data Vital Signs (Past 12 Hours) Vital Signs Temp Pulse Pulse Resp BP BP Pulse Ox 01/30/25 11:09 36.7 C 69 20 116/59 L 93 01/30/25 10:48 36.6 C 67 20 112/59 L 93 01/30/25 08:04 36.8 C 75 16 110/63 96 01/30/25 08:00 01/30/25 07:00 68 01/30/25 04:29 36.7 C 69 18 106/53 L 95 01/30/25 00:44 36.7 C 67 16 101/54 L 92 O2 Del Method 01/30/25 11:09 01/30/25 10:48 01/30/25 08:04 Room Air 01/30/25 08:00 Room Air 01/30/25 07:00 01/30/25 04:29 Room Air 01/30/25 00:44 Room Air Laboratory Results Laboratory Results - last 72 hr 01/28/25 01/28/25 01/28/25 14:13 17:11 21:26 WBC 368.63 H* RBC 3.58 L Hgb 8.7 L Hct 30.4 L MCV 84.9 MCH 24.3 L MCHC 28.6 L RDW Std Deviation 60.0 H RDW Coeff of Jillian 21.0 H Plt Count 79 L MPV 9.6 Neutrophils % (Manual) 1 Lymphocytes % (Manual) 99 Monocytes % (Manual) Neutrophils # (Manual) 3.69 Total Absolute Neuts 3.69 Lymphocytes # (Manual) 364.94 H Total Abs Lymphocytes 364.94 H Monocytes # (Manual) Smudge Cells Anisocytosis PT 11.2 INR 1.1 APTT 24 PTT Ratio 0.9 Sodium 126 L Potassium 3.7 Chloride 95 L Carbon Dioxide 31 Anion Gap 0 L BUN 16 Creatinine 0.84 Est Cr Clr Drug Dosing 50.7 eGFR 75.65 BUN/Creatinine Ratio 19.0 Glucose 89 Lactate 0.3 L Calcium 7.3 L Ionized Calcium Total Bilirubin 0.8 AST 44 H ALT 20 Alkaline Phosphatase 119 H Troponin I High Sens 21.4 H 5.5 D B-Natriuretic Peptide 145 H Total Protein 5.7 L Albumin 3.9 Globulin 1.8 L Albumin/Globulin Ratio 2.2 H Lipase 11 Urine Color Urine Appearance Urine pH Ur Specific [place] Urine Protein Urine Glucose (UA) Urine Ketones Urine Blood Urine Nitrite Urine Bilirubin Urine Urobilinogen Ur Leukocyte Esterase Urine Comment Blood Type Antibody Screen Crossmatch 01/28/25 01/29/25 01/29/25 Unknown 06:05 07:08 WBC 297.21 H* RBC 3.08 L Hgb 7.7 L Hct 26.7 L MCV 86.7 MCH 25.0 MCHC 28.8 L RDW Std Deviation 61.2 H RDW Coeff of Jillian 21.2 H Plt Count 66 L MPV 9.4 Neutrophils % (Manual) 3 Lymphocytes % (Manual) 96 Monocytes % (Manual) 1 Neutrophils # (Manual) 8.92 H Total Absolute Neuts 8.92 H Lymphocytes # (Manual) 285.32 H Total Abs Lymphocytes 285.32 H Monocytes # (Manual) 2.97 H Smudge Cells Present Anisocytosis Present PT INR APTT PTT Ratio Sodium Cancelled 135 L D Potassium Cancelled 4.2 Chloride Cancelled 101 Carbon Dioxide Cancelled 32 Anion Gap Cancelled 2 L BUN Cancelled 13 Creatinine Cancelled 0.81 Est Cr Clr Drug Dosing Cancelled 47.7 eGFR Cancelled 79.02 BUN/Creatinine Ratio Cancelled 16.0 Glucose Cancelled 90 Lactate Calcium Cancelled 7.4 L Ionized Calcium Total Bilirubin Cancelled 0.8 AST Cancelled 25 ALT Cancelled 15 Alkaline Phosphatase Cancelled 95 Troponin I High Sens B-Natriuretic Peptide Total Protein Cancelled 4.6 L D Albumin Cancelled 2.9 L Globulin Cancelled 1.7 L Albumin/Globulin Ratio Cancelled 1.7 Lipase Urine Color Yellow Urine Appearance Clear Urine pH 7.5 Ur Specific [place] 1.018 Urine Protein Negative Urine Glucose (UA) Negative Urine Ketones Negative Urine Blood Negative Urine Nitrite Negative Urine Bilirubin Negative Urine Urobilinogen Negative Ur Leukocyte Esterase Negative Urine Comment Blood Type Antibody Screen Crossmatch 01/29/25 01/30/25 01/30/25 08:11 07:24 08:51 WBC RBC Hgb Hct MCV MCH MCHC RDW Std Deviation RDW Coeff of Jillian Plt Count MPV Neutrophils % (Manual) Lymphocytes % (Manual) Monocytes % (Manual) Neutrophils # (Manual) Total Absolute Neuts Lymphocytes # (Manual) Total Abs Lymphocytes Monocytes # (Manual) Smudge Cells Anisocytosis PT INR APTT PTT Ratio Sodium Cancelled 135 L Potassium Cancelled 3.8 Chloride Cancelled 101 Carbon Dioxide Cancelled 31 Anion Gap Cancelled 3 BUN Cancelled 13 Creatinine Cancelled 0.88 Est Cr Clr Drug Dosing Cancelled 43.9 eGFR Cancelled 71.54 BUN/Creatinine Ratio Cancelled 14.8 Glucose Cancelled 100 H Lactate Calcium Cancelled 7.6 L Ionized Calcium 1.04 L Total Bilirubin AST ALT Alkaline Phosphatase Troponin I High Sens B-Natriuretic Peptide Total Protein Albumin Globulin Albumin/Globulin Ratio Lipase Urine Color Urine Appearance Urine pH Ur Specific [place] Urine Protein Urine Glucose (UA) Urine Ketones Urine Blood Urine Nitrite Urine Bilirubin Urine Urobilinogen Ur Leukocyte Esterase Urine Comment Blood Type B Positive Antibody Screen NEGATIVE Crossmatch See Detail Diagnostic Findings Laboratory Results - last 72 hr 01/28/25 01/28/25 01/28/25 14:13 17:11 21:26 WBC 368.63 H* RBC 3.58 L Hgb 8.7 L Hct 30.4 L MCV 84.9 MCH 24.3 L MCHC 28.6 L RDW Std Deviation 60.0 H RDW Coeff of Jillian 21.0 H Plt Count 79 L MPV 9.6 Neutrophils % (Manual) 1 Lymphocytes % (Manual) 99 Monocytes % (Manual) Neutrophils # (Manual) 3.69 Total Absolute Neuts 3.69 Lymphocytes # (Manual) 364.94 H Total Abs Lymphocytes 364.94 H Monocytes # (Manual) Smudge Cells Anisocytosis PT 11.2 INR 1.1 APTT 24 PTT Ratio 0.9 Sodium 126 L Potassium 3.7 Chloride 95 L Carbon Dioxide 31 Anion Gap 0 L BUN 16 Creatinine 0.84 Est Cr Clr Drug Dosing 50.7 eGFR 75.65 BUN/Creatinine Ratio 19.0 Glucose 89 Lactate 0.3 L Calcium 7.3 L Ionized Calcium Total Bilirubin 0.8 AST 44 H ALT 20 Alkaline Phosphatase 119 H Troponin I High Sens 21.4 H 5.5 D B-Natriuretic Peptide 145 H Total Protein 5.7 L Albumin 3.9 Globulin 1.8 L Albumin/Globulin Ratio 2.2 H Lipase 11 Urine Color Urine Appearance Urine pH Ur Specific [place] Urine Protein Urine Glucose (UA) Urine Ketones Urine Blood Urine Nitrite Urine Bilirubin Urine Urobilinogen Ur Leukocyte Esterase Urine Comment Blood Type Antibody Screen Crossmatch 01/28/25 01/29/25 01/29/25 Unknown 06:05 07:08 WBC 297.21 H* RBC 3.08 L Hgb 7.7 L Hct 26.7 L MCV 86.7 MCH 25.0 MCHC 28.8 L RDW Std Deviation 61.2 H RDW Coeff of Jillian 21.2 H Plt Count 66 L MPV 9.4 Neutrophils % (Manual) 3 Lymphocytes % (Manual) 96 Monocytes % (Manual) 1 Neutrophils # (Manual) 8.92 H Total Absolute Neuts 8.92 H Lymphocytes # (Manual) 285.32 H Total Abs Lymphocytes 285.32 H Monocytes # (Manual) 2.97 H Smudge Cells Present Anisocytosis Present PT INR APTT PTT Ratio Sodium Cancelled 135 L D Potassium Cancelled 4.2 Chloride Cancelled 101 Carbon Dioxide Cancelled 32 Anion Gap Cancelled 2 L BUN Cancelled 13 Creatinine Cancelled 0.81 Est Cr Clr Drug Dosing Cancelled 47.7 eGFR Cancelled 79.02 BUN/Creatinine Ratio Cancelled 16.0 Glucose Cancelled 90 Lactate Calcium Cancelled 7.4 L Ionized Calcium Total Bilirubin Cancelled 0.8 AST Cancelled 25 ALT Cancelled 15 Alkaline Phosphatase Cancelled 95 Troponin I High Sens B-Natriuretic Peptide Total Protein Cancelled 4.6 L D Albumin Cancelled 2.9 L Globulin Cancelled 1.7 L Albumin/Globulin Ratio Cancelled 1.7 Lipase Urine Color Yellow Urine Appearance Clear Urine pH 7.5 Ur Specific [place] 1.018 Urine Protein Negative Urine Glucose (UA) Negative Urine Ketones Negative Urine Blood Negative Urine Nitrite Negative Urine Bilirubin Negative Urine Urobilinogen Negative Ur Leukocyte Esterase Negative Urine Comment Blood Type Antibody Screen Crossmatch 01/29/25 01/30/25 01/30/25 08:11 07:24 08:51 WBC RBC Hgb Hct MCV MCH MCHC RDW Std Deviation RDW Coeff of Jillian Plt Count MPV Neutrophils % (Manual) Lymphocytes % (Manual) Monocytes % (Manual) Neutrophils # (Manual) Total Absolute Neuts Lymphocytes # (Manual) Total Abs Lymphocytes Monocytes # (Manual) Smudge Cells Anisocytosis PT INR APTT PTT Ratio Sodium Cancelled 135 L Potassium Cancelled 3.8 Chloride Cancelled 101 Carbon Dioxide Cancelled 31 Anion Gap Cancelled 3 BUN Cancelled 13 Creatinine Cancelled 0.88 Est Cr Clr Drug Dosing Cancelled 43.9 eGFR Cancelled 71.54 BUN/Creatinine Ratio Cancelled 14.8 Glucose Cancelled 100 H Lactate Calcium Cancelled 7.6 L Ionized Calcium 1.04 L Total Bilirubin AST ALT Alkaline Phosphatase Troponin I High Sens B-Natriuretic Peptide Total Protein Albumin Globulin Albumin/Globulin Ratio Lipase Urine Color Urine Appearance Urine pH Ur Specific [place] Urine Protein Urine Glucose (UA) Urine Ketones Urine Blood Urine Nitrite Urine Bilirubin Urine Urobilinogen Ur Leukocyte Esterase Urine Comment Blood Type B Positive Antibody Screen NEGATIVE Crossmatch See Detail Medications Administered Current Inpatient Medications Acetaminophen/Butalbital/Caffeine (Butalbital/Acetamin/Caffeine Tab) 1 tab PO TID PRN PRN Reason: TENSION HEADACHES Stop: 02/27/25 22:11 Last Admin: 01/29/25 06:34 Dose: 1 tab Acyclovir (Acyclovir 400 Mg Tab) 400 mg PO TID [facility] Stop: 02/27/25 22:11 Last Admin: 01/30/25 09:22 Dose: 400 mg Artificial Tears (Artificial Tears) 1 drops OP PRN PRN PRN Reason: Dry Eyes Stop: 02/27/25 22:43 Cetirizine HCl (Cetirizine Hcl 10 Mg Tablet) 10 mg PO QAM [facility] Stop: 02/28/25 08:59 Last Admin: 01/30/25 09:23 Dose: 10 mg Cyclobenzaprine HCl (Cyclobenzaprine Hcl 10 Mg Tab) 10 mg PO TID [facility] Stop: 02/27/25 22:11 Last Admin: 01/30/25 09:19 Dose: 10 mg Famotidine (Famotidine 20 Mg Tab) 20 mg PO BID PRN PRN Reason: Heartburn Stop: 02/27/25 22:11 Fluticasone Propionate (Fluticasone Propionate Na Spr 16 Gm Btl) 2 sprays NA DAILY [facility] Stop: 02/28/25 08:59 Last Admin: 01/30/25 09:11 Dose: Not Given Guaifenesin (Guaifenesin 600 Mg Tabcr) 1,200 mg PO Q12 [facility] Stop: 02/27/25 20:59 Last Admin: 01/30/25 09:22 Dose: 1,200 mg Piperacillin Sod/Tazobactam Sod (Zosyn) 4.5 gm in 100 mls @ 25 mls/hr IV Q8H S ; Protocol Stop: 02/05/25 01:59 Last Admin: 01/30/25 09:24 Dose: 25 mls/hr Vancomycin HCl 1,250 mg/ (Sodium Chloride) 275 mls @ 200 mls/hr IV Q24H [facility] Stop: 02/05/25 08:59 Last Infusion: 01/29/25 15:05 Dose: Infused Sodium Chloride (Nss) 100 mls @ 15 mls/hr IV .Q6H40M PRN PRN Reason: For Transfusion Duration Stop: 01/30/25 16:00 Sodium Chloride (Nss) 100 mls @ 15 mls/hr IV .Q6H40M PRN PRN Reason: For Transfusion Duration Stop: 01/30/25 17:55 Ketorolac Tromethamine (Ketorolac 0.5% Op Soln 5 Ml Btl) 1 drops OPB TID [facility] Stop: 02/27/25 22:11 Last Admin: 01/30/25 09:12 Dose: 1 drops Ketorolac Tromethamine (Ketorolac Tromethamine 10 Mg Tablet) 10 mg PO TID [facility] Stop: 02/05/25 09:01 Last Admin: 01/30/25 09:21 Dose: 10 mg Levothyroxine Sodium (Levothyroxine Sodium 175 Mcg Tablet) 175 mcg PO DAILYBB [facility] Stop: 02/28/25 06:29 Last Admin: 01/30/25 06:13 Dose: 175 mcg Loperamide HCl (Loperamide Hcl 2 Mg Cap) 2 mg PO Q6H PRN PRN Reason: Diarrhea Stop: 02/27/25 22:11 Meclizine HCl (Meclizine Hcl 25 Mg Tab) 25 mg PO QID [facility] Stop: 02/27/25 22:11 Last Admin: 01/30/25 09:22 Dose: 25 mg Metoprolol Succinate (Metoprolol Succ 50mg Ext Rel Tab) 150 mg PO QAM [facility] Stop: 02/28/25 08:59 Last Admin: 01/30/25 09:23 Dose: 150 mg Metoprolol Tartrate (Metoprolol Tartrate 50 Mg Tab) 50 mg PO TID PRN PRN Reason: tachycardia Stop: 02/27/25 22:11 Miscellaneous (Olopatadine 0.1%: Order Awaiting Action) 1 each N/A QS [facility] Stop: 02/28/25 07:59 Last Admin: 01/30/25 09:10 Dose: Not Given Miscellaneous Information (Vancomycin Consult Active) 1 each N/A UD PRN PRN Reason: Consult Stop: 02/27/25 19:11 Morphine Sulfate (Morphine Sulfate Cr 15 Mg Tabcr) 30 mg PO BID [facility] Stop: 02/11/25 22:11 Last Admin: 01/30/25 09:19 Dose: 30 mg Multi-Ingredient Mouthwash/Gargle (First - Mouthwash Blm 5 Ml Udp) 5 ml PO Q6H PRN PRN Reason: MOUTH SORE FROM CHEMO Stop: 02/27/25 23:21 Nabumetone (Nabumetone 500 Mg Tablet) 750 mg PO BID [facility] Stop: 02/26/25 23:59 Ofloxacin (Ofloxacin 0.3% 75 Drops/5 Ml Btl) 1 drops OPB TID [facility] Stop: 02/07/25 22:11 Last Admin: 01/30/25 09:12 Dose: 1 drops Ondansetron HCl (Ondansetron Inj 2 Mg/Ml 2 Ml Vial) 4 mg IV Q6H PRN PRN Reason: Nausea Stop: 02/27/25 20:40 Last Admin: 01/28/25 20:54 Dose: 4 mg Ondansetron HCl (Ondansetron 4 Mg Od Tab) 8 mg PO TID PRN PRN Reason: NAUSEA/VOMITING Stop: 02/27/25 22:45 Oxycodone HCl (Oxycodone Hcl Ir 5 Mg Tab (Immediate Release)) 20 mg PO TID PRN PRN Reason: pain Stop: 02/11/25 22:11 Last Admin: 01/30/25 06:17 Dose: 20 mg Oxymetazoline HCl (Oxymetazoline 0.05% 30 Ml Btl) 2 sprays NA Q4H PRN PRN Reason: Congestion Stop: 02/27/25 22:11 Pantoprazole Sodium (Pantoprazole 40 Mg Tab) 40 mg PO BID [facility] Stop: 02/27/25 22:11 Last Admin: 01/30/25 09:24 Dose: 40 mg Pilocarpine HCl (Pilocarpine Hcl 5 Mg Tablet) 5 mg PO QID [facility] Stop: 02/27/25 22:11 Last Admin: 01/30/25 09:22 Dose: 5 mg Potassium Chloride (Potassium Chloride 10 Meq Caper) 20 meq PO BID [facility] Stop: 02/27/25 21:29 Last Admin: 01/30/25 09:20 Dose: 20 meq Promethazine HCl (Promethazine Hcl 25 Mg Tab) 25 mg PO Q4H PRN PRN Reason: nausea and vomiting Stop: 02/27/25 22:11 Pseudoephedrine HCl (Pseudoephedrine Hcl 30 Mg Tab) 30 mg PO DAILY PRN PRN Reason: Congestion Stop: 02/27/25 22:11 Silver Sulfadiazine (Silver Sulfadiazine 1% Cr 50 Gm Jar/Tube) 1 appln TOP BID PRN PRN Reason: wound healing Stop: 02/27/25 22:11 Last Admin: 01/29/25 21:52 Dose: 1 appln Sumatriptan Succinate (Sumatriptan Succinate 100 Mg Tab) 100 mg PO DAILY PRN PRN Reason: migraine headache Stop: 02/27/25 22:11 Timolol Maleate (Timolol Maleate 0.5% Op Soln 5 Ml Btl) 1 drops OP BID [facility] Stop: 02/27/25 22:11 Last Admin: 01/30/25 09:12 Dose: 1 drops Zanubrutinib (Zanubrutinib 80 Mg Cap) 160 mg PO BID [facility] Stop: 02/27/25 20:59 Last Admin: 01/30/25 09:20 Dose: 160 mg Zolpidem Tartrate (Zolpidem Tartrate 5 Mg Tab) 10 mg PO HS PRN PRN Reason: Sleep Stop: 02/27/25 22:11 PG Care Time/CCT Total # of Minutes Spent Total Time Spent with Patient: Total time spent is greater than 50% in coordination of care (as documented) at patient's floor/unit and/or counseling patient: Coding Level of Care Code 80175 SUB INP/OBS CARE 05/01MIN Diagnoses Cellulitis, leg L03.119 Gastric mass K31.89 Time Spent (min) 20
[2025-01-30] MEDS: CALCIUM GLUCONATE 1,000 MG/60 ML BAG IV SCH (13:25)
[2025-01-30] MEDS: PSEUDOEPHEDRINE HCL 30 MG TAB PO PRN (22:41)
[2025-01-31 07:14] LABS: Hematocrit (blood only) 31.8 % (37.0-47.0); Hemoglobin 9.4 g/dl (12.0-16.0); Mean Corpuscular Hemoglobin 25.5 pg (25.0-34.0); Mean Corpuscular Volume 86.4 fL (80.0-100.0); RDW Standard Deviation 59.7 fL (36.4-46.3); Red Blood Count 3.68 M/uL (4.20-5.40); White Blood Count 307.26 K/ul (4.8-10.8)
[2025-01-31 07:36] LABS: Anion Gap 0.0 (3-11); Blood Urea Nitrogen 14.0 mg/dl (6-23); Calcium 7.6 mg/dl (8.6-10.3); Carbon Dioxide 31.0 mmol/L (21-32); Chloride 100.0 mmol/L (98-107); Creatinine Clr Calc Pharmacy 43.9 ml/min; Glucose 91.0 mg/dl (70-99(Fasting)); Potassium 4.8 mmol/L (3.5-5.1); Sodium 131.0 mmol/L (136-145)
[2025-01-31 07:43] LABS: Platelet Count 64 K/uL (130-400)
[2025-01-31 08:00] LABS: Immature Granulocytes # (auto) 0.27 K/uL (0.01-0.20); Immature Granulocytes % (auto) 0.1 %
[2025-01-31 08:01] LABS: Anisocytosis Present; Polychromasia 1+; Smudge Cells Present
[2025-01-31] MEDS: FUROSEMIDE 40 MG/4 ML VIAL IV SCH (09:33)
--- NOTE | 2025-01-31 10:06 | Hospitalist Progress Note ---
Date of Service January 31, 2025 Assessment & Plan (1) Cellulitis, leg: (2) Gastric mass: Plan Diana Pan is a 69 yo woman with hx of lymphedema, sinusitis, sjogren syndrome, progessive CLL failed multiple regime, posterior scalp lesion (biopsy positive for lymphoma), PSVT, ankylosing spondylitis, GERD, hx of PE, chronic hyponatremia, hx of chronic pain on morphine and oxycodone (following with Dr. Driscoll), papillory thyroid cancer (s/p thyroidectomy), b12 deficiency, multiple drug allergy she's has CLL since 2009 and failed multiple regime, currently on Brukinsa 160mg BID, she's has a posterior scalp lesion and biopsy in 2023 positive for lymphoma she's being followed for lymph node in her lumbar/sacral region. she following with our forensic technician and lyla forensic technician and typically receiving weekly blood transfusion she's lost 30-40 lbs in 2024. she's has staging CT scan every 3-4 months and that found diffuse lymphadenopathy; gastric mass, she see urology and has cystoscopy on 08/17 found inflammation int eh posterior wall and extrinsic compression from lymphadenopathy. she's was about to see GI ([facility]), but they need to rule out mass her spinal column prior to colonoscopy. since October 2024; she has diffuse skin lesion in her upper back and right anterior shoulder and oncology trying to has dermatology evaluate her. she's been having worsening leg edema and did not improved with lasix and metolazoine since yesterday, she's been having worsening discharge from her leg, foot edema and skin lesions. in her toes she's came to our hospital and was found to has b/l celllulitis, hypotension 1. b/l cellulitis with hypotension, chronic sinusitis 2. hypocalcemia 3. hx of MSSA infection. 4. weight loss of 30-40 lbs 5. polypoid lesion in the stomach 6. recurrent anemia needing weekly blood transfusion 7. hx of CLL , failed multiple reegime 8. hx of DVT 9. anklosing spondylitis 10. GERD 11. hx of PE 12. migraine headache 13. hx of glaucoma 14. hypothyroidism, hx of papillary thryoid cancer s/p surgery 1. b/l cellulitis, sinusitis; proctitis. IV zosyn and vancomycin, that will help covered both her sinusitis and cellulitis her leg pain and discharge somewhat improved c/w IV lasix, wound care evaluation. check nasal MRSA proctitis that was found on CT abdomen, she's seeing Dr. Soto ([facility]) [facility] and plan for colonoscopy after clearance. 2. hypocalcemia, calcium gluconate, trend calcium level 3. weight loss of 30-40 lbs, her CT abdomen show soft tissue thickening in the iliac chain b/l in the pre- sacral and perirectgal space also found 1.5 intraluminal polypoid inside the stomach. she was seeing GI, Dr. Soto for EGD and plan for EUS she's has severe claustrophobia with MRI 4. CLL (diagnosed since 2009) she's on brukinsa 160mg BID Savannah Couch [place] [facility], started treatment on Apr 2014 with bendamustine/rituximab but she's stop after 3 cycle of treatment given her nausea and vomiting. dec 2016, started obinutuzumab but dc after 4 cycles given cardiac issues, GI symptoms and BP issues on 01/2018, started on venectoclax and has remission on 12/2022, CT scan show disease progression, briefly on IV rituximab but then has upper abdominal pain, headache and body achies she was on acalabrutinib 100mg PO daily on 09/07/2023 but noted disease progression has posterior scalp biopsy (January 15, 2024), dr. Russell which found small lymphocytic lymphoma she has lesion palpable lesion in her lumbar region and following with specialist for evaluation she severely claustrophobia and cannot tolerate MRI Since October 2024. 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 hx of papillary thyroid cancer, hypothyroidism levothyroxine 175mcg 6. PSVT, metoprolol XL 150mg morning, metoprolol XL 100mg evening she's on PRN metoprolol tartrate she's on lasix 60mg and she's on metolazone before lasix 7. recurrent sinusitis she was on augmentin at home, she's on zosyn while here she's takg afrin oxymetazoline and pseudoephedrine 8. sjogren disease, she's on pilocarpine 5mg QID 9. chronic back pain, ankylosing spondylitis she's on morphine ER 30mg BID and oxycodone 20mg TID PRN she's on nabumetone 750mg BID and toradol oral 10mg TID cyclobenzaprine 10mg TID 10. GERD, protonix 40mg BID, PRN pepcid. 11. migraine headache, sumatriptan PRN, she's on PRN fiorcet. 12. glaucoma-timolol maleate 0.5 daily BID she's reportedly on on ofloxacin 0.3% eye drop and olopatadine 0.1% BID and ketorolax 0.5% eye drop. 13. prophylaxis, she's on ayclovir 400mg TID code status: Full code Admission and Anticipated Discharge Date Admission Date: January 28, 2025 Subjective she's still has ongoing leg pain and discharge IV lasix started today she's has RUQ pain from splenomegaly she's has skin rash, but her dermatology Dr. Vish Morris is retiring she's see Dr. Soto for GI evaluation, per the patient plan for colonoscopy; EGD and EUS she has a lump on her posterior scalp, s/p biopsy, which later positive for lymphoma Physical Exam Physical Exam: VITALS: Reviewed. WEIGHT/BMI reviewed. GEN: chronically ill appearing HEENT -Head: NC/AT; CV: RRR, no m/r/g. LUNGS: CTAB, no w/r/c. ABD: Soft, NT/ND, NBS, no masses or organomegaly. SKIN: skin lesion in the upper back, skin lesion in the lower legs. MSK: No deformities, Normal gait. EXT: edema; multiple scalp lesion NEURO: AAox3 Results & Data Results & Data Vital Signs (Past 12 Hours) Vital Signs Temp Pulse Pulse Resp BP Pulse Ox O2 Del Method 01/31/25 09:06 36.7 C 74 128/66 96 Room Air 01/31/25 08:02 Room Air 01/31/25 07:10 69 01/31/25 02:52 36.7 C 69 16 118/51 L 95 Room Air 01/30/25 23:45 36.7 C 72 16 130/69 96 Room Air 01/30/25 22:01 69 Laboratory Results Laboratory Results - last 72 hr 01/28/25 01/28/25 01/28/25 14:13 17:11 21:26 WBC 368.63 H* RBC 3.58 L Hgb 8.7 L Hct 30.4 L MCV 84.9 MCH 24.3 L MCHC 28.6 L RDW Std Deviation 60.0 H RDW Coeff of Jillian 21.0 H Plt Count 79 L MPV 9.6 Immature Gran % (Auto) Neut % (Auto) Lymph % (Auto) Hand % (Auto) Eos % (Auto) Baso % (Auto) Neut # (Auto) Lymph # (Auto) Hand # (Auto) Eos # (Auto) Baso # (Auto) Immature Gran # (Auto) Neutrophils % (Manual) 1 Lymphocytes % (Manual) 99 Monocytes % (Manual) Neutrophils # (Manual) 3.69 Total Absolute Neuts 3.69 Lymphocytes # (Manual) 364.94 H Total Abs Lymphocytes 364.94 H Monocytes # (Manual) Smudge Cells Polychromasia Anisocytosis Echinocytes PT 11.2 INR 1.1 APTT 24 PTT Ratio 0.9 Sodium 126 L Potassium 3.7 Chloride 95 L Carbon Dioxide 31 Anion Gap 0 L BUN 16 Creatinine 0.84 Est Cr Clr Drug Dosing 50.7 eGFR 75.65 BUN/Creatinine Ratio 19.0 Glucose 89 Lactate 0.3 L Calcium 7.3 L Ionized Calcium Total Bilirubin 0.8 AST 44 H ALT 20 Alkaline Phosphatase 119 H Troponin I High Sens 21.4 H 5.5 D B-Natriuretic Peptide 145 H Total Protein 5.7 L Albumin 3.9 Globulin 1.8 L Albumin/Globulin Ratio 2.2 H Lipase 11 Urine Color Urine Appearance Urine pH Ur Specific [place] Urine Protein Urine Glucose (UA) Urine Ketones Urine Blood Urine Nitrite Urine Bilirubin Urine Urobilinogen Ur Leukocyte Esterase Urine Comment Random Vancomycin Blood Type Antibody Screen Crossmatch 01/28/25 01/29/25 01/29/25 Unknown 06:05 07:08 WBC 297.21 H* RBC 3.08 L Hgb 7.7 L Hct 26.7 L MCV 86.7 MCH 25.0 MCHC 28.8 L RDW Std Deviation 61.2 H RDW Coeff of Jillian 21.2 H Plt Count 66 L MPV 9.4 Immature Gran % (Auto) Neut % (Auto) Lymph % (Auto) Hand % (Auto) Eos % (Auto) Baso % (Auto) Neut # (Auto) Lymph # (Auto) Hand # (Auto) Eos # (Auto) Baso # (Auto) Immature Gran # (Auto) Neutrophils % (Manual) 3 Lymphocytes % (Manual) 96 Monocytes % (Manual) 1 Neutrophils # (Manual) 8.92 H Total Absolute Neuts 8.92 H Lymphocytes # (Manual) 285.32 H Total Abs Lymphocytes 285.32 H Monocytes # (Manual) 2.97 H Smudge Cells Present Polychromasia Anisocytosis Present Echinocytes PT INR APTT PTT Ratio Sodium Cancelled 135 L D Potassium Cancelled 4.2 Chloride Cancelled 101 Carbon Dioxide Cancelled 32 Anion Gap Cancelled 2 L BUN Cancelled 13 Creatinine Cancelled 0.81 Est Cr Clr Drug Dosing Cancelled 47.7 eGFR Cancelled 79.02 BUN/Creatinine Ratio Cancelled 16.0 Glucose Cancelled 90 Lactate Calcium Cancelled 7.4 L Ionized Calcium Total Bilirubin Cancelled 0.8 AST Cancelled 25 ALT Cancelled 15 Alkaline Phosphatase Cancelled 95 Troponin I High Sens B-Natriuretic Peptide Total Protein Cancelled 4.6 L D Albumin Cancelled 2.9 L Globulin Cancelled 1.7 L Albumin/Globulin Ratio Cancelled 1.7 Lipase Urine Color Yellow Urine Appearance Clear Urine pH 7.5 Ur Specific [place] 1.018 Urine Protein Negative Urine Glucose (UA) Negative Urine Ketones Negative Urine Blood Negative Urine Nitrite Negative Urine Bilirubin Negative Urine Urobilinogen Negative Ur Leukocyte Esterase Negative Urine Comment Random Vancomycin Blood Type Antibody Screen Crossmatch 01/29/25 01/30/25 01/30/25 08:11 07:24 08:51 WBC RBC Hgb Hct MCV MCH MCHC RDW Std Deviation RDW Coeff of Jillian Plt Count MPV Immature Gran % (Auto) Neut % (Auto) Lymph % (Auto) Hand % (Auto) Eos % (Auto) Baso % (Auto) Neut # (Auto) Lymph # (Auto) Hand # (Auto) Eos # (Auto) Baso # (Auto) Immature Gran # (Auto) Neutrophils % (Manual) Lymphocytes % (Manual) Monocytes % (Manual) Neutrophils # (Manual) Total Absolute Neuts Lymphocytes # (Manual) Total Abs Lymphocytes Monocytes # (Manual) Smudge Cells Polychromasia Anisocytosis Echinocytes PT INR APTT PTT Ratio Sodium Cancelled 135 L Potassium Cancelled 3.8 Chloride Cancelled 101 Carbon Dioxide Cancelled 31 Anion Gap Cancelled 3 BUN Cancelled 13 Creatinine Cancelled 0.88 Est Cr Clr Drug Dosing Cancelled 43.9 eGFR Cancelled 71.54 BUN/Creatinine Ratio Cancelled 14.8 Glucose Cancelled 100 H Lactate Calcium Cancelled 7.6 L Ionized Calcium 1.04 L Total Bilirubin AST ALT Alkaline Phosphatase Troponin I High Sens B-Natriuretic Peptide Total Protein Albumin Globulin Albumin/Globulin Ratio Lipase Urine Color Urine Appearance Urine pH Ur Specific [place] Urine Protein Urine Glucose (UA) Urine Ketones Urine Blood Urine Nitrite Urine Bilirubin Urine Urobilinogen Ur Leukocyte Esterase Urine Comment Random Vancomycin Blood Type B Positive Antibody Screen NEGATIVE Crossmatch See Detail 01/31/25 05:38 WBC 307.26 H* RBC 3.68 L Hgb 9.4 L Hct 31.8 L MCV 86.4 MCH 25.5 MCHC 29.6 L RDW Std Deviation 59.7 H RDW Coeff of Jillian 20.2 H Plt Count 64 L MPV 9.8 Immature Gran % (Auto) 0.1 Neut % (Auto) 0.2 Lymph % (Auto) 94.9 Hand % (Auto) 3.5 Eos % (Auto) 0.1 Baso % (Auto) 1.2 Neut # (Auto) 0.61 L* Lymph # (Auto) 291.72 H Hand # (Auto) 10.68 H Eos # (Auto) 0.18 Baso # (Auto) 3.80 H Immature Gran # (Auto) 0.27 H Neutrophils % (Manual) Lymphocytes % (Manual) Monocytes % (Manual) Neutrophils # (Manual) Total Absolute Neuts Lymphocytes # (Manual) Total Abs Lymphocytes Monocytes # (Manual) Smudge Cells Present Polychromasia 1+ Anisocytosis Present Echinocytes 1+ PT INR APTT PTT Ratio Sodium 131 L Potassium 4.8 D Chloride 100 Carbon Dioxide 31 Anion Gap 0 L BUN 14 Creatinine 0.88 Est Cr Clr Drug Dosing 43.9 eGFR 71.54 BUN/Creatinine Ratio 15.9 Glucose 91 Lactate Calcium 7.6 L Ionized Calcium Total Bilirubin AST ALT Alkaline Phosphatase Troponin I High Sens B-Natriuretic Peptide Total Protein Albumin Globulin Albumin/Globulin Ratio Lipase Urine Color Urine Appearance Urine pH Ur Specific [place] Urine Protein Urine Glucose (UA) Urine Ketones Urine Blood Urine Nitrite Urine Bilirubin Urine Urobilinogen Ur Leukocyte Esterase Urine Comment Random Vancomycin 12.9 Blood Type Antibody Screen Crossmatch Diagnostic Findings Laboratory Results WBC 307.26 K/ul (4.8-10.8) H* 01/31/25 05:38 RBC 3.68 M/uL (4.20-5.40) L 01/31/25 05:38 Hgb 9.4 g/dl (12.0-16.0) L 01/31/25 05:38 Hct 31.8 % (37.0-47.0) L 01/31/25 05:38 MCV 86.4 fL (80.0-100.0) 01/31/25 05:38 MCH 25.5 pg (25.0-34.0) 01/31/25 05:38 MCHC 29.6 g/dL (32.0-36.0) L 01/31/25 05:38 RDW Std Deviation 59.7 fL (36.4-46.3) H 01/31/25 05:38 RDW Coeff of Jillian 20.2 % (11.5-14.5) H 01/31/25 05:38 Plt Count 64 K/uL (130-400) L 01/31/25 05:38 MPV 9.8 fL (9.4-12.4) 01/31/25 05:38 Immature Gran % (Auto) 0.1 % 01/31/25 05:38 Neut % (Auto) 0.2 % 01/31/25 05:38 Lymph % (Auto) 94.9 % 01/31/25 05:38 Hand % (Auto) 3.5 % 01/31/25 05:38 Eos % (Auto) 0.1 % 01/31/25 05:38 Baso % (Auto) 1.2 % 01/31/25 05:38 Neut # (Auto) 0.61 K/uL (1.40-6.50) L* 01/31/25 05:38 Lymph # (Auto) 291.72 K/uL (1.20-3.40) H 01/31/25 05:38 Hand # (Auto) 10.68 K/uL (0.11-0.59) H 01/31/25 05:38 Eos # (Auto) 0.18 K/uL (0.00-0.50) 01/31/25 05:38 Baso # (Auto) 3.80 K/uL (0.00-0.20) H 01/31/25 05:38 Immature Gran # (Auto) 0.27 K/uL (0.01-0.20) H 01/31/25 05:38 Neutrophils % (Manual) 3 % 01/29/25 06:05 Lymphocytes % (Manual) 96 % 01/29/25 06:05 Monocytes % (Manual) 1 % 01/29/25 06:05 Neutrophils # (Manual) 8.92 K/uL (1.40-6.50) H 01/29/25 06:05 Total Absolute Neuts 8.92 K/uL (1.4-6.5) H 01/29/25 06:05 Lymphocytes # (Manual) 285.32 K/uL (1.2-3.4) H 01/29/25 06:05 Total Abs Lymphocytes 285.32 K/uL (1.2-3.4) H 01/29/25 06:05 Monocytes # (Manual) 2.97 K/uL (0.11-0.59) H 01/29/25 06:05 Smudge Cells Present 01/31/25 05:38 Polychromasia 1+ 01/31/25 05:38 Anisocytosis Present 01/31/25 05:38 Echinocytes 1+ 01/31/25 05:38 PT 11.2 Seconds (9.0-12.0) 01/28/25 14:13 INR 1.1 (0.9-1.1) 01/28/25 14:13 APTT 24 Seconds (21-31) 01/28/25 14:13 PTT Ratio 0.9 01/28/25 14:13 Sodium 131 mmol/L (136-145) L 01/31/25 05:38 Potassium 4.8 mmol/L (3.5-5.1) D 01/31/25 05:38 Chloride 100 mmol/L (98-107) 01/31/25 05:38 Carbon Dioxide 31 mmol/L (21-32) 01/31/25 05:38 Anion Gap 0 (3-11) L 01/31/25 05:38 BUN 14 mg/dl (6-23) 01/31/25 05:38 Creatinine 0.88 mg/dl (0.6-1.2) 01/31/25 05:38 Est Cr Clr Drug Dosing 43.9 ml/min 01/31/25 05:38 eGFR 71.54 01/31/25 05:38 BUN/Creatinine Ratio 15.9 (10-20) 01/31/25 05:38 Glucose 91 mg/dl (70-99(Fasting)) 01/31/25 05:38 Lactate 0.3 mmol/L (0.4-2.0) L 01/28/25 21:26 Calcium 7.6 mg/dl (8.6-10.3) L 01/31/25 05:38 Ionized Calcium 1.04 mmol/L (1.12-1.32) L 01/30/25 07:24 Total Bilirubin 0.8 mg/dl (0.2-1.0) 01/29/25 07:08 AST 25 U/L (13-39) 01/29/25 07:08 ALT 15 U/L (7-52) 01/29/25 07:08 Alkaline Phosphatase 95 U/L (34-104) 01/29/25 07:08 Troponin I High Sens 5.5 pg/ml (0-14) D 01/28/25 17:11 B-Natriuretic Peptide 145 pg/ml (0-100) H 01/28/25 14:13 Total Protein 4.6 gm/dl (6.0-8.3) L D 01/29/25 07:08 Albumin 2.9 gm/dl (3.4-5.0) L 01/29/25 07:08 Globulin 1.7 gm/dl (2.5-4.0) L 01/29/25 07:08 Albumin/Globulin Ratio 1.7 (0.9-2) 01/29/25 07:08 Lipase 11 U/L (11-82) 01/28/25 14:13 Urine Color Yellow 01/28/25 Unknown Urine Appearance Clear (Clear) 01/28/25 Unknown Urine pH 7.5 (4.5-7.5) 01/28/25 Unknown Ur Specific [place] 1.018 (1.000-1.030) 01/28/25 Unknown Urine Protein Negative (Negative) 01/28/25 Unknown Urine Glucose (UA) Negative (Negative) 01/28/25 Unknown Urine Ketones Negative (Negative) 01/28/25 Unknown Urine Blood Negative (Negative) 01/28/25 Unknown Urine Nitrite Negative (Negative) 01/28/25 Unknown Urine Bilirubin Negative (Negative) 01/28/25 Unknown Urine Urobilinogen Negative (Negative) 01/28/25 Unknown Ur Leukocyte Esterase Negative (Negative) 01/28/25 Unknown Urine Comment 01/28/25 Unknown Random Vancomycin 12.9 mcg/ml (10-20) 01/31/25 05:38 Blood Type B Positive 01/29/25 08:11 Antibody Screen NEGATIVE 01/29/25 08:11 Crossmatch See Detail 01/29/25 08:11 Impressions Venous Doppler Study 01/28/25 13:54 Technique: Venous ultrasound evaluation was performed utilizing grayscale, color Doppler and wave form evaluation. Images were also obtained with and without compression Findings: The bilateral common femoral, superficial femoral, popliteal, and visualized calf veins demonstrate normal anechoic lumens with full compressibility. Normal flow is seen on color Doppler images. Expected waveforms were produced with augmentation maneuvers There are small bilateral inguinal lymph nodes, likely benign Impression: No evidence of deep venous thrombosis Electronically signed by Alexis High 01-28-2025 4:58 PM Chest X-Ray 01/28/25 13:56 Chest x-ray, 2 views History: Chest pain. Comparison: January 25, 2025 CT chest correlate. Study report not available at the time of dictation. Findings: Lung volume slightly decreased. Bronchovascular crowding. Nonspecific prominent mild diffuse bilateral increased interstitial markings. Lungs are otherwise clear. No acute pleural disease. Pulmonary vasculature is prominent. No sergio edema. Cardiomediastinal silhouette is within normal limits. Impression: Nonspecific mild diffuse increased bilateral interstitial markings. This unlikely represents pulmonary vascular congestion although this cannot be excluded. Interstitial inflammatory or infectious pneumonitis not excluded. Consider follow-up exam after therapy. Electronically signed by Chau Chinchilla 01-28-2025 5:07 PM Abdomen/Pelvis CT 01/28/25 14:00 CT SCAN OF THE ABDOMEN AND PELVIS WITH IV CONTRAST CLINICAL HISTORY: Generalized abdominal pain. Distention. COMPARISON STUDY: Abdominal CT dated 01/25/2025. TECHNIQUE: Following the IV administration of 94 cc of Optiray 320, CT scan of the abdomen and pelvis is performed from the lung bases to the proximal femora. Images are reviewed in the axial, sagittal, and coronal planes. IV contrast was administered without complication. A dose lowering technique was utilized adhering to the principles of ALARA. CT DOSE: 609.2 mGy.cm FINDINGS: Lung bases: The heart is mildly enlarged and without pericardial effusion. The coronary arteries are densely calcified. The lung bases are clear noting bibasilar atelectasis. Liver: The contrast-enhanced liver is normal in size, contour, and attenuation. There is mild to moderate intrahepatic biliary ductal dilatation. The hepatic veins and portal veins are patent. Gallbladder: Surgically absent noting clips in the gallbladder fossa. Spleen: The spleen is markedly enlarged, measuring 21.5 cm in length. Pancreas: Moderately atrophic and grossly unremarkable. Adrenal glands: Unremarkable. Kidneys: The contrast enhanced kidneys are normal in size and without hydronephrosis. The kidneys enhance symmetrically. Abdominal vasculature: The abdominal aorta is normal in course and caliber noting mild to moderate atherosclerotic calcification. Bowel: There is no bowel obstruction. Residual enteric contrast is seen throughout the colon. There is moderate to severe constipation. A portion of the normal appendix is seen in the right lower quadrant on image #221. Peritoneum: There is trace perisplenic ascites. No intraperitoneal free air is seen. Lymphadenopathy: There is bulky lymphadenopathy seen throughout the abdomen and pelvis comment is not appreciably changed from 01/25/2025. An aortocaval node on image #118 measures approximate 6 x 3.5 cm. A left periaortic node image #145 measures 2.5 x 2.1 cm, and a right external iliac chain node on image #283 measures 4.5 x 2.6 cm. There is confluent soft tissue thickening seen throughout the iliac chain bilaterally and in the presacral space. Pelvic viscera: The bladder is normal as visualized. The uterus is surgically absent. No adnexal lesion is seen. Skeletal structures: The skeletal structures are heterogeneously osteopenic. Degenerative change and scoliosis is noted in the lumbar spine. No lytic or blastic lesions are seen. Soft tissues: There is body wall edema. IMPRESSION: 1. Moderate to severe constipation. 2. There is bulky lymphadenopathy throughout the abdomen and pelvis with marked splenomegaly consistent with the known history of a lymphoproliferative disorder. This has not appreciably changed from 01/25/2025. 3. Diffuse soft tissue thickening is seen throughout the iliac chain bilaterally and in the presacral/perirectal space. This is likely related to the lymphoproliferative process. A superimposed proctitis would be impossible to exclude and clinical correlation will be essential. 4. Cardiomegaly noting coronary artery atherosclerosis. 5. Additional findings as above. ACT 112: Negative or not required by law. Electronically signed by: Abraham Cornejo M.D. 01/28/2025 4:21 PM Aorta w/Runoff CTA 01/29/25 09:03 Clinical history: Pain Technique: Axial computed tomography images were obtained of the abdomen, pelvis, lower extremities after the administration of intravenous contrast according to the CT angiogram protocol. Oral contrast was given No prior examination is available for comparison Findings: The abdominal aorta appears unremarkable with no sign of aneurysm or dissection. No stenosis is seen involving it. The celiac axis and superior mesenteric artery are not visualized. The visualized renal arteries appear unremarkable. The right common iliac, external iliac, and internal iliac arteries appear unremarkable. No stenosis is seen of the right common femoral artery. The right profunda femoral artery is patent. There is no significant stenosis of the right superior femoral or popliteal arteries. The right anterior tibial and peroneal arteries are patent. The right posterior tibial artery appears occluded proximally The left common iliac, external iliac, and internal iliac arteries appear unremarkable. No stenosis is seen of the left common femoral artery. The left profunda femoral artery is patent. There is no significant stenosis of the left superior femoral or popliteal arteries. The left anterior tibial and peroneal arteries appear normal. The distal left posterior tibial artery is diminutive, which may be on a congenital basis Only the lower portion of the liver is visualized. The visualized liver is overall of normal size, attenuation, and contour with no sign of cirrhosis or significant fatty infiltration. No liver mass lesion is seen. The portal vein is patent. The gallbladder is not visualized. No bile duct dilatation is noted. The spleen is enlarged measuring 20 cm. No focal splenic lesion is evident. The pancreas appears normal with no sign of acute or chronic pancreatitis and no mass lesion noted. The pancreatic duct is of normal caliber. The adrenal glands appear unremarkable. The upper kidneys are not visualized. There is no hydronephrosis or perinephric stranding. No renal mass lesion is identified. There is confluent retroperitoneal adenopathy, measuring up to 6.8 x 3.4 cm. There is no sign of small bowel obstruction. There is constipation. There is apparent wall thickening of the sigmoid colon and rectum. No free intraperitoneal fluid or air is identified. There is bilateral iliac chain adenopathy, measuring up to 3.7 cm. No bladder mass lesion is evident. No fracture is identified. No focal osseous lesion is seen. There is severe left knee osteoarthritis. There is grade 1 anterolisthesis at L4-5. There is lumbar scoliosis and degenerative disc disease. There are bilateral calcaneal spurs Impression: 1. Bulky abdominal and pelvic adenopathy, consistent with metastatic disease or lymphoma 2. Apparent wall thickening of the traversing right colon and rectum. While this could be due to inflammatory bowel disease or infectious colitis,: Carcinoma is also possible 3. Severe splenomegaly 4. Normal-appearing abdominal aorta 5. No definite stenosis of the pelvic or proximal bilateral leg arteries 6. Apparent occlusion of the right [employer] ACT 112: Positive. There are findings on this exam that require communication between the performing entity and the patient following Patient Test Result Information Act ([place] ACT 112) guidelines. Electronically signed by Alexis High 01-29-2025 10:14 AM Medications Administered Current Inpatient Medications Acetaminophen/Butalbital/Caffeine (Butalbital/Acetamin/Caffeine Tab) 1 tab PO TID PRN PRN Reason: TENSION HEADACHES Stop: 02/27/25 22:11 Last Admin: 01/29/25 06:34 Dose: 1 tab Acyclovir (Acyclovir 400 Mg Tab) 400 mg PO TID WALT Stop: 02/27/25 22:11 Last Admin: 01/31/25 09:24 Dose: 400 mg Artificial Tears (Artificial Tears) 1 drops OP PRN PRN PRN Reason: Dry Eyes Stop: 02/27/25 22:43 Cetirizine HCl (Cetirizine Hcl 10 Mg Tablet) 10 mg PO QAM [facility] Stop: 02/28/25 08:59 Last Admin: 01/31/25 09:25 Dose: 10 mg Cyclobenzaprine HCl (Cyclobenzaprine Hcl 10 Mg Tab) 10 mg PO TID [facility] Stop: 02/27/25 22:11 Last Admin: 01/31/25 09:23 Dose: 10 mg Famotidine (Famotidine 20 Mg Tab) 20 mg PO BID PRN PRN Reason: Heartburn Stop: 02/27/25 22:11 Fluticasone Propionate (Fluticasone Propionate Na Spr 16 Gm Btl) 2 sprays NA DAILY [facility] Stop: 02/28/25 08:59 Last Admin: 01/31/25 09:19 Dose: Not Given Furosemide (Furosemide 40 Mg/4 Ml Vial) 40 mg IV DAILY [facility] Stop: 02/03/25 08:59 Last Admin: 01/31/25 09:33 Dose: 40 mg Guaifenesin (Guaifenesin 600 Mg Tabcr) 1,200 mg PO Q12 [facility] Stop: 02/27/25 20:59 Last Admin: 01/31/25 09:24 Dose: 1,200 mg Piperacillin Sod/Tazobactam Sod (Zosyn) 4.5 gm in 100 mls @ 25 mls/hr IV Q8H [facility]; Protocol Stop: 02/05/25 01:59 Last Infusion: 01/31/25 07:08 Dose: Infused Vancomycin HCl 1,250 mg/ (Sodium Chloride) 275 mls @ 200 mls/hr IV Q24H [facility] Stop: 02/05/25 08:59 Last Infusion: 01/30/25 15:56 Dose: Infused Ketorolac Tromethamine (Ketorolac 0.5% Op Soln 5 Ml Btl) 1 drops OPB TID [facility] Stop: 02/27/25 22:11 Last Admin: 01/31/25 09:23 Dose: 1 drops Ketorolac Tromethamine (Ketorolac Tromethamine 10 Mg Tablet) 10 mg PO TID [facility] Stop: 02/05/25 09:01 Last Admin: 01/31/25 09:25 Dose: 10 mg Levothyroxine Sodium (Levothyroxine Sodium 175 Mcg Tablet) 175 mcg PO DAILYBB [facility] Stop: 02/28/25 06:29 Last Admin: 01/31/25 05:43 Dose: 175 mcg Loperamide HCl (Loperamide Hcl 2 Mg Cap) 2 mg PO Q6H PRN PRN Reason: Diarrhea Stop: 02/27/25 22:11 Meclizine HCl (Meclizine Hcl 25 Mg Tab) 25 mg PO QID [facility] Stop: 02/27/25 22:11 Last Admin: 01/31/25 09:24 Dose: 25 mg Metoprolol Succinate (Metoprolol Succ 50mg Ext Rel Tab) 150 mg PO QAM [facility] Stop: 02/28/25 08:59 Last Admin: 01/31/25 09:26 Dose: 150 mg Metoprolol Tartrate (Metoprolol Tartrate 50 Mg Tab) 50 mg PO TID PRN PRN Reason: tachycardia Stop: 02/27/25 22:11 Miscellaneous (Olopatadine 0.1%: Order Awaiting Action) 1 each N/A QS [facility] Stop: 02/28/25 07:59 Last Admin: 01/31/25 09:18 Dose: Not Given Miscellaneous Information (Vancomycin Consult Active) 1 each N/A UD PRN PRN Reason: Consult Stop: 02/27/25 19:11 Morphine Sulfate (Morphine Sulfate Cr 15 Mg Tabcr) 30 mg PO BID [facility] Stop: 02/11/25 22:11 Last Admin: 01/31/25 09:33 Dose: 30 mg Multi-Ingredient Mouthwash/Gargle (First - Mouthwash Blm 5 Ml Udp) 5 ml PO Q6H PRN PRN Reason: MOUTH SORE FROM CHEMO Stop: 02/27/25 23:21 Nabumetone (Nabumetone 500 Mg Tablet) 750 mg PO BID [facility] Stop: 02/26/25 23:59 Ofloxacin (Ofloxacin 0.3% 75 Drops/5 Ml Btl) 1 drops OPB TID [facility] Stop: 02/07/25 22:11 Last Admin: 01/31/25 09:23 Dose: 1 drops Ondansetron HCl (Ondansetron Inj 2 Mg/Ml 2 Ml Vial) 4 mg IV Q6H PRN PRN Reason: Nausea Stop: 02/27/25 20:40 Last Admin: 01/30/25 17:24 Dose: 4 mg Ondansetron HCl (Ondansetron 4 Mg Od Tab) 8 mg PO TID PRN PRN Reason: NAUSEA/VOMITING Stop: 02/27/25 22:45 Oxycodone HCl (Oxycodone Hcl Ir 5 Mg Tab (Immediate Release)) 20 mg PO TID PRN PRN Reason: pain Stop: 02/11/25 22:11 Last Admin: 01/30/25 22:41 Dose: 20 mg Oxymetazoline HCl (Oxymetazoline 0.05% 30 Ml Btl) 2 sprays NA Q4H PRN PRN Reason: Congestion Stop: 02/27/25 22:11 Pantoprazole Sodium (Pantoprazole 40 Mg Tab) 40 mg PO BID [facility] Stop: 02/27/25 22:11 Last Admin: 01/31/25 09:26 Dose: 40 mg Pilocarpine HCl (Pilocarpine Hcl 5 Mg Tablet) 5 mg PO QID [facility] Stop: 02/27/25 22:11 Last Admin: 01/31/25 09:20 Dose: 5 mg Potassium Chloride (Potassium Chloride 10 Meq Caper) 20 meq PO BID [facility] Stop: 02/27/25 21:29 Last Admin: 01/31/25 09:21 Dose: 20 meq Promethazine HCl (Promethazine Hcl 25 Mg Tab) 25 mg PO Q4H PRN PRN Reason: nausea and vomiting Stop: 02/27/25 22:11 Pseudoephedrine HCl (Pseudoephedrine Hcl 30 Mg Tab) 30 mg PO DAILY PRN PRN Reason: Congestion Stop: 02/27/25 22:11 Last Admin: 01/30/25 22:41 Dose: 30 mg Silver Sulfadiazine (Silver Sulfadiazine 1% Cr 50 Gm Jar/Tube) 1 appln TOP BID PRN PRN Reason: wound healing Stop: 02/27/25 22:11 Last Admin: 01/29/25 21:52 Dose: 1 appln Sumatriptan Succinate (Sumatriptan Succinate 100 Mg Tab) 100 mg PO DAILY PRN PRN Reason: migraine headache Stop: 02/27/25 22:11 Timolol Maleate (Timolol Maleate 0.5% Op Soln 5 Ml Btl) 1 drops OP BID [facility] Stop: 02/27/25 22:11 Last Admin: 01/31/25 09:23 Dose: 1 drops Zanubrutinib (Zanubrutinib 80 Mg Cap) 160 mg PO BID [facility] Stop: 02/27/25 20:59 Last Admin: 01/31/25 09:22 Dose: 160 mg Zolpidem Tartrate (Zolpidem Tartrate 5 Mg Tab) 10 mg PO HS PRN PRN Reason: Sleep Stop: 02/27/25 22:11 PG Care Time/CCT Total # of Minutes Spent Total Time Spent with Patient: Total time spent is greater than 50% in coordination of care (as documented) at patient's floor/unit and/or counseling patient: Coding Level of Care Code 80463 SUB INP/OBS CARE 05/01MIN Diagnoses Cellulitis, leg L03.119 Gastric mass K31.89 Time Spent (min) 25
--- NOTE | 2025-01-31 14:28 | Pharmacy Report ---
Pharmacy PK ABX Note - Date of Service January 31, 2025 - Assessment and Plan Assessment 69 year old F receiving vancomycin and zosyn for treatment of leg cellulitis. 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 Renal function stable. Blood cultures show no growth at 48 hours. Day # 3 of antimicrobial therapy Plan Vancomycin * Current regimen: 1250 mg IV every 24 hours * Random level obtained 01/31/25 resulted as 12.9 mcg/mL. This is predicted to achieve target AUC/ALLA of 400-600 mg/L.hr * Predicted AUC at steady state: 587 mg/L.hr * Continue 1250 mg IV every 24 hours * Will repeat level in the next 48-72 hours if therapy is continued and/or olivier nge in patient clinical status Pharmacy will continue to follow and will adjust dose/frequency as necessary. Thank you. Pharmacy has transitioned to AUC monitoring for vancomycin. AUC/ALLA is the preferred PK/PD target and is associated with decreased risk of nephrotoxicity compared to traditional trough targets.
[2025-01-31] MEDS: FAMOTIDINE 20 MG TAB PO PRN (17:25)
[2025-01-31] MEDS: ONDANSETRON 4 MG OD TAB PO PRN (22:07)
[2025-02-01 07:50] LABS: Hematocrit (blood only) 32.7 % (37.0-47.0); Hemoglobin 9.1 g/dl (12.0-16.0); Mean Corpuscular Hemoglobin 24.5 pg (25.0-34.0); Mean Corpuscular Volume 88.1 fL (80.0-100.0); Platelet Count 59 K/uL (130-400); RDW Standard Deviation 59.6 fL (36.4-46.3); Red Blood Count 3.71 M/uL (4.20-5.40); White Blood Count 335.23 K/ul (4.8-10.8)
[2025-02-01 08:10] LABS: Potassium 4.2 mmol/L (3.5-5.1)
[2025-02-01 08:11] LABS: Anisocytosis Present; Immature Granulocytes # (auto) 0.23 K/uL (0.01-0.20); Immature Granulocytes % (auto) 0.1 %; Smudge Cells Present
[2025-02-01 08:31] LABS: Anion Gap 2.0 (3-11); Blood Urea Nitrogen 16.0 mg/dl (6-23); Calcium 7.3 mg/dl (8.6-10.3); Carbon Dioxide 30.0 mmol/L (21-32); Chloride 96.0 mmol/L (98-107); Creatinine Clr Calc Pharmacy 40.3 ml/min; Glucose 84.0 mg/dl (70-99(Fasting)); Sodium 128.0 mmol/L (136-145)
[2025-02-01] MEDS: POLYETHYLENE (MIRALAX) 17 GM PACK PO ONE (10:40)
--- NOTE | 2025-02-01 13:39 | Hospitalist Progress Note ---
Date of Service February 01, 2025 Assessment & Plan (1) Cellulitis, leg: (2) Gastric mass: Plan Diana Pan is a 69 yo woman with hx of lymphedema, sinusitis, sjogren syndrome, progessive CLL failed multiple regime, posterior scalp lesion (biopsy positive for lymphoma), PSVT, ankylosing spondylitis, GERD, hx of PE, chronic hyponatremia, hx of chronic pain on morphine and oxycodone (following with Dr. Driscoll), papillory thyroid cancer (s/p thyroidectomy), b12 deficiency, multiple drug allergy she's has CLL since 2009 and failed multiple regime, currently on Brukinsa 160mg BID, she's has a posterior scalp lesion and biopsy in 2023 positive for lymphoma she's being followed for lymph node in her lumbar/sacral region. she following with our mortgage broker and lyla mortgage broker and typically receiving weekly blood transfusion she's lost 30-40 lbs in 2024. she's has staging CT scan every 3-4 months and that found diffuse lymphadenopathy; gastric mass, she see urology and has cystoscopy on 08/17 found inflammation int eh posterior wall and extrinsic compression from lymphadenopathy. she's was about to see GI (Jeff[facility]), but they need to rule out mass her spinal column prior to colonoscopy. since October 2024; she has diffuse skin lesion in her upper back and right anterior shoulder and oncology trying to has dermatology evaluate her. she's been having worsening leg edema and did not improved with lasix and metolazoine since yesterday, she's been having worsening discharge from her leg, foot edema and skin lesions. in her toes she's came to our hospital and was found to has b/l celllulitis, hypotension 1. b/l cellulitis with hypotension, chronic sinusitis 2. hypocalcemia 3. hx of MSSA infection. 4. weight loss of 30-40 lbs 5. polypoid lesion in the stomach 6. recurrent anemia needing weekly blood transfusion 7. hx of CLL , failed multiple reegime 8. hx of DVT 9. anklosing spondylitis 10. GERD 11. hx of PE 12. migraine headache 13. hx of glaucoma 14. hypothyroidism, hx of papillary thryoid cancer s/p surgery 1. b/l cellulitis, sinusitis; proctitis. increasing her lasix dose to 60mg daily, trend creatinine function she need ongoing IV zosyn. as her leg pain persist IV zosyn and vancomycin, that will help covered both her sinusitis and cellulitis c/w IV lasix, wound care evaluation. constipation; started on miralax on 02/01 proctitis that was found on CT abdomen, she's seeing Dr. Soto ([facility]) she following with [facility] [place] for and plan for colonoscopy after clearance. 2. hypocalcemia, calcium gluconate, trend calcium level 3. weight loss of 30-40 lbs, her CT abdomen show soft tissue thickening in the iliac chain b/l in the pre- sacral and perirectgal space also found 1.5 intraluminal polypoid inside the stomach. she was seeing GI, Dr. Soto for EGD and plan for EUS she's has severe claustrophobia with MRI 4. CLL (diagnosed since 2009) she's on brukinsa 160mg BID Savannah Couch is working with [facility] [place] hematology, diagnosed in 2009, started treatment on Apr 2014 with bendamustine/rituximab but she's stop after 3 cycle of treatment given her nausea and vomiting. dec 2016, started obinutuzumab but dc after 4 cycles given cardiac issues, GI symptoms and BP issues on 01/2018, started on venectoclax and has remission on 12/2022, CT scan show disease progression, briefly on IV rituximab but then has upper abdominal pain, headache and body achies she was on acalabrutinib 100mg PO daily on 09/07/2023 but noted disease progression has posterior scalp biopsy (January 15, 2024), dr. Russell which found small lymphocytic lymphoma she has lesion palpable lesion in her lumbar region and following with specialist for evaluation she severely claustrophobia and cannot tolerate MRI Since October 2024. she has diffuse skin outbreak, and oncology was requested dermatology evaluation her prior health information provider at [facility] ([place] Vish Morris is retiring 5. hx of papillary thyroid cancer, hypothyroidism levothyroxine 175mcg 6. PSVT, metoprolol XL 150mg morning, metoprolol XL 100mg evening she's on PRN metoprolol tartrate she's on lasix 60mg and she's on metolazone before lasix 7. recurrent sinusitis she was on augmentin at home, she's on zosyn while here she's takg afrin oxymetazoline and pseudoephedrine 8. sjogren disease, she's on pilocarpine 5mg QID 9. chronic back pain, ankylosing spondylitis she's on morphine ER 30mg BID and oxycodone 20mg TID PRN she's on nabumetone 750mg BID and toradol oral 10mg TID cyclobenzaprine 10mg TID 10. GERD, protonix 40mg BID, PRN pepcid. 11. migraine headache, sumatriptan PRN, she's on PRN fiorcet. 12. glaucoma-timolol maleate 0.5 daily BID she's reportedly on on ofloxacin 0.3% eye drop and olopatadine 0.1% BID and ketorolax 0.5% eye drop. 13. prophylaxis, she's on ayclovir 400mg TID code status: Full code Admission and Anticipated Discharge Date Admission Date: January 28, 2025 Subjective she's has leg pain, edema, she still need IV antibiotics increasing her IV lasix to address the edema, her BP is much improved now that her infection is well control has lower abdominal pain, heartburn and constipation she's requested half dose of miralax as she's has tendency for diarrhea she's still has ongoing leg pain and discharge IV lasix started today she has a lump on her posterior scalp, s/p biopsy, which later positive for lymphoma Physical Exam Physical Exam: VITALS: Reviewed. WEIGHT/BMI reviewed. GEN: chronically ill PSYCH: Good Judgment. AOx3. Normal memory, mood, and affect. HEENT -Head: NC/AT; skin: diffuse skin rash on the upper back NECK: Supple, with no masses. CV: RRR, no m/r/g. LUNGS: CTAB, no w/r/c. ABD: Soft, NT/ND, NBS, no masses or organomegaly. MSK: No deformities, Normal gait. EXT: + for edema; + for multiple scalp in the lower extremity NEURO: AAOx3 Results & Data Results & Data Vital Signs (Past 12 Hours) Vital Signs Temp Pulse Pulse Resp BP Pulse Ox O2 Del Method 02/01/25 11:31 Room Air 02/01/25 11:14 36.8 C 67 129/70 97 Room Air 02/01/25 08:54 36.8 C 74 16 116/65 96 Room Air 02/01/25 07:20 67 02/01/25 02:58 36.5 C 65 18 136/69 98 Room Air Laboratory Results Laboratory Results - last 72 hr 01/29/25 01/30/25 01/30/25 08:11 07:24 08:51 WBC RBC Hgb Hct MCV MCH MCHC RDW Std Deviation RDW Coeff of Jillian Plt Count MPV Immature Gran % (Auto) Neut % (Auto) Lymph % (Auto) [place] % (Auto) Eos % (Auto) Baso % (Auto) Neut # (Auto) Lymph # (Auto) [place] # (Auto) Eos # (Auto) Baso # (Auto) Immature Gran # (Auto) Smudge Cells Polychromasia Anisocytosis Echinocytes Sodium Cancelled 135 L Potassium Cancelled 3.8 Chloride Cancelled 101 Carbon Dioxide Cancelled 31 Anion Gap Cancelled 3 BUN Cancelled 13 Creatinine Cancelled 0.88 Est Cr Clr Drug Dosing Cancelled 43.9 eGFR Cancelled 71.54 BUN/Creatinine Ratio Cancelled 14.8 Glucose Cancelled 100 H Calcium Cancelled 7.6 L Ionized Calcium 1.04 L Random Vancomycin Blood Type B Positive Antibody Screen NEGATIVE Crossmatch See Detail 01/31/25 02/01/25 05:38 06:07 WBC 307.26 H* 335.23 H* RBC 3.68 L 3.71 L Hgb 9.4 L 9.1 L Hct 31.8 L 32.7 L MCV 86.4 88.1 MCH 25.5 24.5 L MCHC 29.6 L 27.8 L RDW Std Deviation 59.7 H 59.6 H RDW Coeff of Jillian 20.2 H 21.4 H Plt Count 64 L 59 L MPV 9.8 10.5 Immature Gran % (Auto) 0.1 0.1 Neut % (Auto) 0.2 0.5 Lymph % (Auto) 94.9 95.3 [place] % (Auto) 3.5 3.8 Eos % (Auto) 0.1 0.1 Baso % (Auto) 1.2 0.2 Neut # (Auto) 0.61 L* 1.85 Lymph # (Auto) 291.72 H 319.56 H [place] # (Auto) 10.68 H 12.74 H Eos # (Auto) 0.18 0.17 Baso # (Auto) 3.80 H 0.68 H Immature Gran # (Auto) 0.27 H 0.23 H Smudge Cells Present Present Polychromasia 1+ Anisocytosis Present Present Echinocytes 1+ Sodium 131 L 128 L Potassium 4.8 D 4.2 Chloride 100 96 L Carbon Dioxide 31 30 Anion Gap 0 L 2 L BUN 14 16 Creatinine 0.88 0.96 Est Cr Clr Drug Dosing 43.9 40.3 eGFR 71.54 64.45 BUN/Creatinine Ratio 15.9 16.7 Glucose 91 84 Calcium 7.6 L 7.3 L Ionized Calcium Random Vancomycin 12.9 Blood Type Antibody Screen Crossmatch Diagnostic Findings Laboratory Results WBC 335.23 K/ul (4.8-10.8) H* 02/01/25 06:07 RBC 3.71 M/uL (4.20-5.40) L 02/01/25 06:07 Hgb 9.1 g/dl (12.0-16.0) L 02/01/25 06:07 Hct 32.7 % (37.0-47.0) L 02/01/25 06:07 MCV 88.1 fL (80.0-100.0) 02/01/25 06:07 MCH 24.5 pg (25.0-34.0) L 02/01/25 06:07 MCHC 27.8 g/dL (32.0-36.0) L 02/01/25 06:07 RDW Std Deviation 59.6 fL (36.4-46.3) H 02/01/25 06:07 RDW Coeff of Jillian 21.4 % (11.5-14.5) H 02/01/25 06:07 Plt Count 59 K/uL (130-400) L 02/01/25 06:07 MPV 10.5 fL (9.4-12.4) 02/01/25 06:07 Immature Gran % (Auto) 0.1 % 02/01/25 06:07 Neut % (Auto) 0.5 % 02/01/25 06:07 Lymph % (Auto) 95.3 % 02/01/25 06:07 Duval % (Auto) 3.8 % 02/01/25 06:07 Eos % (Auto) 0.1 % 02/01/25 06:07 Baso % (Auto) 0.2 % 02/01/25 06:07 Neut # (Auto) 1.85 K/uL (1.40-6.50) 02/01/25 06:07 Lymph # (Auto) 319.56 K/uL (1.20-3.40) H 02/01/25 06:07 Duval # (Auto) 12.74 K/uL (0.11-0.59) H 02/01/25 06:07 Eos # (Auto) 0.17 K/uL (0.00-0.50) 02/01/25 06:07 Baso # (Auto) 0.68 K/uL (0.00-0.20) H 02/01/25 06:07 Immature Gran # (Auto) 0.23 K/uL (0.01-0.20) H 02/01/25 06:07 Neutrophils % (Manual) 3 % 01/29/25 06:05 Lymphocytes % (Manual) 96 % 01/29/25 06:05 Monocytes % (Manual) 1 % 01/29/25 06:05 Neutrophils # (Manual) 8.92 K/uL (1.40-6.50) H 01/29/25 06:05 Total Absolute Neuts 8.92 K/uL (1.4-6.5) H 01/29/25 06:05 Lymphocytes # (Manual) 285.32 K/uL (1.2-3.4) H 01/29/25 06:05 Total Abs Lymphocytes 285.32 K/uL (1.2-3.4) H 01/29/25 06:05 Monocytes # (Manual) 2.97 K/uL (0.11-0.59) H 01/29/25 06:05 Smudge Cells Present 02/01/25 06:07 Polychromasia 1+ 01/31/25 05:38 Anisocytosis Present 02/01/25 06:07 Echinocytes 1+ 01/31/25 05:38 PT 11.2 Seconds (9.0-12.0) 01/28/25 14:13 INR 1.1 (0.9-1.1) 01/28/25 14:13 APTT 24 Seconds (21-31) 01/28/25 14:13 PTT Ratio 0.9 01/28/25 14:13 Sodium 128 mmol/L (136-145) L 02/01/25 06:07 Potassium 4.2 mmol/L (3.5-5.1) 02/01/25 06:07 Chloride 96 mmol/L (98-107) L 02/01/25 06:07 Carbon Dioxide 30 mmol/L (21-32) 02/01/25 06:07 Anion Gap 2 (3-11) L 02/01/25 06:07 BUN 16 mg/dl (6-23) 02/01/25 06:07 Creatinine 0.96 mg/dl (0.6-1.2) 02/01/25 06:07 Est Cr Clr Drug Dosing 40.3 ml/min 02/01/25 06:07 eGFR 64.45 02/01/25 06:07 BUN/Creatinine Ratio 16.7 (10-20) 02/01/25 06:07 Glucose 84 mg/dl (70-99(Fasting)) 02/01/25 06:07 Lactate 0.3 mmol/L (0.4-2.0) L 01/28/25 21:26 Calcium 7.3 mg/dl (8.6-10.3) L 02/01/25 06:07 Ionized Calcium 1.04 mmol/L (1.12-1.32) L 01/30/25 07:24 Total Bilirubin 0.8 mg/dl (0.2-1.0) 01/29/25 07:08 AST 25 U/L (13-39) 01/29/25 07:08 ALT 15 U/L (7-52) 01/29/25 07:08 Alkaline Phosphatase 95 U/L (34-104) 01/29/25 07:08 Troponin I High Sens 5.5 pg/ml (0-14) D 01/28/25 17:11 B-Natriuretic Peptide 145 pg/ml (0-100) H 01/28/25 14:13 Total Protein 4.6 gm/dl (6.0-8.3) L D 01/29/25 07:08 Albumin 2.9 gm/dl (3.4-5.0) L 01/29/25 07:08 Globulin 1.7 gm/dl (2.5-4.0) L 01/29/25 07:08 Albumin/Globulin Ratio 1.7 (0.9-2) 01/29/25 07:08 Lipase 11 U/L (11-82) 01/28/25 14:13 Urine Color Yellow 01/28/25 Unknown Urine Appearance Clear (Clear) 01/28/25 Unknown Urine pH 7.5 (4.5-7.5) 01/28/25 Unknown Ur Specific [place] 1.018 (1.000-1.030) 01/28/25 Unknown Urine Protein Negative (Negative) 01/28/25 Unknown Urine Glucose (UA) Negative (Negative) 01/28/25 Unknown Urine Ketones Negative (Negative) 01/28/25 Unknown Urine Blood Negative (Negative) 01/28/25 Unknown Urine Nitrite Negative (Negative) 01/28/25 Unknown Urine Bilirubin Negative (Negative) 01/28/25 Unknown Urine Urobilinogen Negative (Negative) 01/28/25 Unknown Ur Leukocyte Esterase Negative (Negative) 01/28/25 Unknown Urine Comment 01/28/25 Unknown Random Vancomycin 12.9 mcg/ml (10-20) 01/31/25 05:38 Blood Type B Positive 01/29/25 08:11 Antibody Screen NEGATIVE 01/29/25 08:11 Crossmatch See Detail 01/29/25 08:11 Impressions Venous Doppler Study 01/28/25 13:54 Technique: Venous ultrasound evaluation was performed utilizing grayscale, color Doppler and wave form evaluation. Images were also obtained with and without compression Findings: The bilateral common femoral, superficial femoral, popliteal, and visualized calf veins demonstrate normal anechoic lumens with full compressibility. Normal flow is seen on color Doppler images. Expected waveforms were produced with augmentation maneuvers There are small bilateral inguinal lymph nodes, likely benign Impression: No evidence of deep venous thrombosis Electronically signed by Alexis High 01-28-2025 4:58 PM Chest X-Ray 01/28/25 13:56 Chest x-ray, 2 views History: Chest pain. Comparison: January 25, 2025 CT chest correlate. Study report not available at the time of dictation. Findings: Lung volume slightly decreased. Bronchovascular crowding. Nonspecific prominent mild diffuse bilateral increased interstitial markings. Lungs are otherwise clear. No acute pleural disease. Pulmonary vasculature is prominent. No sergio edema. Cardiomediastinal silhouette is within normal limits. Impression: Nonspecific mild diffuse increased bilateral interstitial markings. This unlikely represents pulmonary vascular congestion although this cannot be excluded. Interstitial inflammatory or infectious pneumonitis not excluded. Consider follow-up exam after therapy. Electronically signed by Chau Chinchilla 01-28-2025 5:07 PM Abdomen/Pelvis CT 01/28/25 14:00 CT SCAN OF THE ABDOMEN AND PELVIS WITH IV CONTRAST CLINICAL HISTORY: Generalized abdominal pain. Distention. COMPARISON STUDY: Abdominal CT dated 01/25/2025. TECHNIQUE: Following the IV administration of 94 cc of Optiray 320, CT scan of the abdomen and pelvis is performed from the lung bases to the proximal femora. Images are reviewed in the axial, sagittal, and coronal planes. IV contrast was administered without complication. A dose lowering technique was utilized adhering to the principles of ALARA. CT DOSE: 609.2 mGy.cm FINDINGS: Lung bases: The heart is mildly enlarged and without pericardial effusion. The coronary arteries are densely calcified. The lung bases are clear noting bibasilar atelectasis. Liver: The contrast-enhanced liver is normal in size, contour, and attenuation. There is mild to moderate intrahepatic biliary ductal dilatation. The hepatic veins and portal veins are patent. Gallbladder: Surgically absent noting clips in the gallbladder fossa. Spleen: The spleen is markedly enlarged, measuring 21.5 cm in length. Pancreas: Moderately atrophic and grossly unremarkable. Adrenal glands: Unremarkable. Kidneys: The contrast enhanced kidneys are normal in size and without hydronephrosis. The kidneys enhance symmetrically. Abdominal vasculature: The abdominal aorta is normal in course and caliber noting mild to moderate atherosclerotic calcification. Bowel: There is no bowel obstruction. Residual enteric contrast is seen throughout the colon. There is moderate to severe constipation. A portion of the normal appendix is seen in the right lower quadrant on image #221. Peritoneum: There is trace perisplenic ascites. No intraperitoneal free air is seen. Lymphadenopathy: There is bulky lymphadenopathy seen throughout the abdomen and pelvis comment is not appreciably changed from 01/25/2025. An aortocaval node on image #118 measures approximate 6 x 3.5 cm. A left periaortic node image #145 measures 2.5 x 2.1 cm, and a right external iliac chain node on image #283 measures 4.5 x 2.6 cm. There is confluent soft tissue thickening seen throughout the iliac chain bilaterally and in the presacral space. Pelvic viscera: The bladder is normal as visualized. The uterus is surgically a bsent. No adnexal lesion is seen. Skeletal structures: The skeletal structures are heterogeneously osteopenic. Degenerative change and scoliosis is noted in the lumbar spine. No lytic or blastic lesions are seen. Soft tissues: There is body wall edema. IMPRESSION: 1. Moderate to severe constipation. 2. There is bulky lymphadenopathy throughout the abdomen and pelvis with marked splenomegaly consistent with the known history of a lymphoproliferative disorder. This has not appreciably changed from 01/25/2025. 3. Diffuse soft tissue thickening is seen throughout the iliac chain bilaterally and in the presacral/perirectal space. This is likely related to the lymphoproliferative process. A superimposed proctitis would be impossible to exclude and clinical correlation will be essential. 4. Cardiomegaly noting coronary artery atherosclerosis. 5. Additional findings as above. ACT 112: Negative or not required by law. Electronically signed by: Abraham Cornejo M.D. 01/28/2025 4:21 PM Aorta w/Runoff CTA 01/29/25 09:03 Clinical history: Pain Technique: Axial computed tomography images were obtained of the abdomen, pelvis, lower extremities after the administration of intravenous contrast according to the CT angiogram protocol. Oral contrast was given No prior examination is available for comparison Findings: The abdominal aorta appears unremarkable with no sign of aneurysm or dissection. No stenosis is seen involving it. The celiac axis and superior mesenteric artery are not visualized. The visualized renal arteries appear unremarkable. The right common iliac, external iliac, and internal iliac arteries appear unremarkable. No stenosis is seen of the right common femoral artery. The right profunda femoral artery is patent. There is no significant stenosis of the right superior femoral or popliteal arteries. The right anterior tibial and peroneal arteries are patent. The right posterior tibial artery appears occluded proximally The left common iliac, external iliac, and internal iliac arteries appear unremarkable. No stenosis is seen of the left common femoral artery. The left profunda femoral artery is patent. There is no significant stenosis of the left superior femoral or popliteal arteries. The left anterior tibial and peroneal arteries appear normal. The distal left posterior tibial artery is diminutive, which may be on a congenital basis Only the lower portion of the liver is visualized. The visualized liver is overall of normal size, attenuation, and contour with no sign of cirrhosis or significant fatty infiltration. No liver mass lesion is seen. The portal vein is patent. The gallbladder is not visualized. No bile duct dilatation is noted. The spleen is enlarged measuring 20 cm. No focal splenic lesion is evident. The pancreas appears normal with no sign of acute or chronic pancreatitis and no mass lesion noted. The pancreatic duct is of normal caliber. The adrenal glands appear unremarkable. The upper kidneys are not visualized. There is no hydronephrosis or perinephric stranding. No renal mass lesion is identified. There is confluent retroperitoneal adenopathy, measuring up to 6.8 x 3.4 cm. There is no sign of small bowel obstruction. There is constipation. There is apparent wall thickening of the sigmoid colon and rectum. No free intraperitoneal fluid or air is identified. There is bilateral iliac chain adenopathy, measuring up to 3.7 cm. No bladder mass lesion is evident. No fracture is identified. No focal osseous lesion is seen. There is severe left knee osteoarthritis. There is grade 1 anterolisthesis at L4-5. There is lumbar scoliosis and degenerative disc disease. There are bilateral calcaneal spurs Impression: 1. Bulky abdominal and pelvic adenopathy, consistent with metastatic disease or lymphoma 2. Apparent wall thickening of the traversing right colon and rectum. While this could be due to inflammatory bowel disease or infectious colitis,: Carcinoma is also possible 3. Severe splenomegaly 4. Normal-appearing abdominal aorta 5. No definite stenosis of the pelvic or proximal bilateral leg arteries 6. Apparent occlusion of the right CVIR TECH ACT 112: Positive. There are findings on this exam that require communication between the performing entity and the patient following Patient Test Result Information Act ([place] ACT 112) guidelines. Electronically signed by Alexis High 01-29-2025 10:14 AM PG Care Time/CCT Total # of Minutes Spent Total Time Spent with Patient: Total time spent is greater than 50% in coordination of care (as documented) at patient's floor/unit and/or counseling patient: Coding Level of Care Code 56151 SUB INP/OBS CARE 05/01MIN Diagnoses Cellulitis, leg L03.119 Gastric mass K31.89 Time Spent (min) 20
[2025-02-01] MEDS: FUROSEMIDE INJ 20 MG/2 ML VIAL IV ONE ×2 (14:51→15:26)
[2025-02-01] MEDS ORDERED: ENOXAPARIN INJ 40 MG/0.4 ML SYR SQ SCH (16:00)
[2025-02-01] MEDS: PSEUDOEPHEDRINE HCL 30 MG TAB PO ONE (16:37)
[2025-02-01] MEDS: ENOXAPARIN INJ 30 MG/0.3 ML SYR SQ ONE (16:38)
[2025-02-02 09:17] LABS: Hematocrit (blood only) 33.2 % (37.0-47.0); Hemoglobin 9.2 g/dl (12.0-16.0); Mean Corpuscular Hemoglobin 24.4 pg (25.0-34.0); Mean Corpuscular Volume 88.1 fL (80.0-100.0); Platelet Count 66 K/uL (130-400); Red Blood Count 3.77 M/uL (4.20-5.40); White Blood Count 358.34 K/ul (4.8-10.8)
[2025-02-02 09:31] LABS: Potassium 4.0 mmol/L (3.5-5.1)
[2025-02-02 09:33] LABS: Anion Gap 1.0 (3-11); Blood Urea Nitrogen 19.0 mg/dl (6-23); Calcium 7.5 mg/dl (8.6-10.3); Carbon Dioxide 32.0 mmol/L (21-32); Chloride 96.0 mmol/L (98-107); Creatinine Clr Calc Pharmacy 39.9 ml/min; Glucose 108.0 mg/dl (70-99(Fasting)); Sodium 129.0 mmol/L (136-145)
[2025-02-02 10:11] LABS: Hypochromasia Present; Immature Granulocytes # (auto) 0.29 K/uL (0.01-0.20); Immature Granulocytes % (auto) 0.1 %; Polychromasia 2+
--- NOTE | 2025-02-02 10:50 | Hospitalist Progress Note ---
Date of Service February 02, 2025 Assessment & Plan (1) Cellulitis, leg: (2) Gastric mass: Plan Diana Pan is a 69 yo woman with hx of lymphedema, sinusitis, sjogren syndrome, progessive CLL failed multiple regime, posterior scalp lesion (biopsy positive for lymphoma), PSVT, ankylosing spondylitis, GERD, hx of PE, chronic hyponatremia, hx of chronic pain on morphine and oxycodone (following with Dr. Driscoll), papillory thyroid cancer (s/p thyroidectomy), b12 deficiency, multiple drug allergy she's has CLL since 2009 and failed multiple regime, currently on Brukinsa 160mg BID, she's has a posterior scalp lesion and biopsy in 2023 positive for lymphoma she's being followed for lymph node in her lumbar/sacral region. she following with our hand touch up painter and lyla hand touch up painter and typically receiving weekly blood transfusion she's lost 30-40 lbs in 2024. she's has staging CT scan every 3-4 months and that found diffuse lymphadenopathy; gastric mass, she see urology and has cystoscopy on 08/17 found inflammation int eh posterior wall and extrinsic compression from lymphadenopathy. she's was about to see GI (Jeffery), but they need to rule out mass her spinal column prior to colonoscopy. since October 2024; she has diffuse skin lesion in her upper back and right anterior shoulder and oncology trying to has dermatology evaluate her. she's been having worsening leg edema and did not improved with lasix and metolazoine since yesterday, she's been having worsening discharge from her leg, foot edema and skin lesions. in her toes she's came to our hospital and was found to has b/l celllulitis, hypotension 1. b/l cellulitis with hypotension, chronic sinusitis 2. lower abdominal pain, thickenig of perirectal space. 3. hx of MSSA infection. 4. weight loss of 30-40 lbs 5. polypoid lesion in the stomach 6. recurrent anemia needing weekly blood transfusion 7. hx of CLL , failed multiple reegime 8. hx of DVT 9. anklosing spondylitis 10. GERD 11. hx of PE 12. migraine headache 13. hx of glaucoma 14. hypothyroidism, hx of papillary thryoid cancer s/p surgery 1. b/l cellulitis, sinusitis; proctitis. her right leg pain is improving, c/w IV zosyn. c/w lasix IV daily 2. LLQ pain, thickening of perirectal space on CT abdomen GI consulted, may benefit from EGD and colonoscopy she's also been having epigastric pain continue to monitor for her platelet level 3. thrombocytopenia, monitor while on lovenox keep platelet > 50k proctitis that was found on CT abdomen, she's seeing Dr. Soto ([facility]) she following with [facility] for and plan for colonoscopy after clearance. 2. hypocalcemia, calcium gluconate, trend calcium level 3. weight loss of 30-40 lbs, her CT abdomen show soft tissue thickening in the iliac chain b/l in the pre- sacral and perirectgal space also found 1.5 intraluminal polypoid inside the stomach. she was seeing GI, Dr. Soto for EGD and plan for EUS will involved our GI for inptient evaluaton she's has severe claustrophobia with MRI 4. CLL (diagnosed since 2009) currently on brukinsa 160mg BID Savannah Couch is working with [facility], diagnosed in 2009, started treatment on Apr 2014 with bendamustine/rituximab but she's stop after 3 cycle of treatment given her nausea and vomiting. dec 2016, started obinutuzumab but dc after 4 cycles given cardiac issues, GI symptoms and BP issues on 01/2018, started on venectoclax and has remission on 12/2022, CT scan show disease progression, briefly on IV rituximab but then has upper abdominal pain, headache and body achies she was on acalabrutinib 100mg PO daily on 09/07/2023 but noted disease progression has posterior scalp biopsy (January 15, 2024), dr. 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 hx of papillary thyroid cancer, hypothyroidism levothyroxine 175mcg 6. PSVT, metoprolol XL 150mg morning, metoprolol XL 100mg evening PRN metoprolol tartrate she's on lasix 60mg and she's on metolazone before lasix 7. recurrent sinusitis she was on augmentin at home, she's on zosyn while here she's on afrin oxymetazoline and pseudoephedrine 8. sjogren disease, she's on pilocarpine 5mg QID 9. chronic back pain, ankylosing spondylitis she's on morphine ER 30mg BID and oxycodone 20mg TID PRN she's on nabumetone 750mg BID and toradol oral 10mg TID cyclobenzaprine 10mg TID 10. GERD, protonix 40mg BID, PRN pepcid. 11. migraine headache, sumatriptan PRN, she's on PRN fiorcet. 12. glaucoma-timolol maleate 0.5 daily BID she's reportedly on on ofloxacin 0.3% eye drop and olopatadine 0.1% BID and ketorolax 0.5% eye drop. 13. prophylaxis, she's on ayclovir 400mg TID code status: Full code Admission and Anticipated Discharge Date Admission Date: January 28, 2025 Subjective for her cellulitis, her left leg pain still significant she will be on zosyn, c/w IV lasix. for her LLQ pain and epigastric pain, her CT abdomen found thickening of perirectum. splenomegaly she has low platelet of 60s. she does has strong FHx of colon cancer after some discussion, she is agreeable for GI evaluation she has CLL, lymphoma. she's has progressive despite multiple regime. Physical Exam Physical Exam: VITALS: Reviewed. WEIGHT/BMI reviewed. GEN: chronically ill appearing skin: multiple rash in the lower extremity HEENT -Head: NC/AT; CV: RRR, no m/r/g. LUNGS: CTAB, no w/r/c. ABD: distended; left side abdominal distension. no ascites noted SKIN: + for erythema; + for lesion in the left lower leg. MSK: less tender to palpation NEURO: AAox3 Results & Data Results & Data Vital Signs (Past 12 Hours) Vital Signs Temp Pulse Pulse Resp BP Pulse Ox O2 Del Method 02/02/25 07:44 36.6 C 73 18 115/60 95 Room Air 02/02/25 07:00 68 02/02/25 02:45 36.6 C 64 18 115/56 L 96 Room Air 02/01/25 23:15 Room Air 02/01/25 22:57 36.5 C 65 18 126/67 99 Room Air Laboratory Results Laboratory Results - last 72 hr 01/29/25 01/31/25 02/01/25 08:11 05:38 06:07 WBC 307.26 H* 335.23 H* RBC 3.68 L 3.71 L Hgb 9.4 L 9.1 L Hct 31.8 L 32.7 L MCV 86.4 88.1 MCH 25.5 24.5 L MCHC 29.6 L 27.8 L RDW Std Deviation 59.7 H 59.6 H RDW Coeff of Jillian 20.2 H 21.4 H Plt Count 64 L 59 L MPV 9.8 10.5 Immature Gran % (Auto) 0.1 0.1 Neut % (Auto) 0.2 0.5 Lymph % (Auto) 94.9 95.3 [place] % (Auto) 3.5 3.8 Eos % (Auto) 0.1 0.1 Baso % (Auto) 1.2 0.2 Neut # (Auto) 0.61 L* 1.85 Lymph # (Auto) 291.72 H 319.56 H O[place]e # (Auto) 10.68 H 12.74 H Eos # (Auto) 0.18 0.17 Baso # (Auto) 3.80 H 0.68 H Immature Gran # (Auto) 0.27 H 0.23 H Smudge Cells Present Present Polychromasia 1+ Hypochromasia Anisocytosis Present Present Echinocytes 1+ Sodium 131 L 128 L Potassium 4.8 D 4.2 Chloride 100 96 L Carbon Dioxide 31 30 Anion Gap 0 L 2 L BUN 14 16 Creatinine 0.88 0.96 Est Cr Clr Drug Dosing 43.9 40.3 eGFR 71.54 64.45 BUN/Creatinine Ratio 15.9 16.7 Glucose 91 84 Calcium 7.6 L 7.3 L Random Vancomycin 12.9 Blood Type B Positive Antibody Screen NEGATIVE Crossmatch See Detail 02/02/25 08:26 WBC 358.34 H* RBC 3.77 L Hgb 9.2 L Hct 33.2 L MCV 88.1 MCH 24.4 L MCHC 27.7 L RDW Std Deviation RDW Coeff of Jillian Plt Count 66 L MPV 9.8 Immature Gran % (Auto) 0.1 Neut % (Auto) 0.5 Lymph % (Auto) 95.0 [place] % (Auto) 4.1 Eos % (Auto) 0.1 Baso % (Auto) 0.2 Neut # (Auto) 2.03 Lymph # (Auto) 340.56 H Otoe # (Auto) 14.63 H Eos # (Auto) 0.19 Baso # (Auto) 0.64 H Immature Gran # (Auto) 0.29 H Smudge Cells Polychromasia 2+ Hypochromasia Present Anisocytosis Echinocytes Sodium 129 L Potassium 4.0 Chloride 96 L Carbon Dioxide 32 Anion Gap 1 L BUN 19 Creatinine 0.97 Est Cr Clr Drug Dosing 39.9 eGFR 63.65 BUN/Creatinine Ratio 19.6 Glucose 108 H Calcium 7.5 L Random Vancomycin Blood Type Antibody Screen Crossmatch Diagnostic Findings Laboratory Results WBC 358.34 K/ul (4.8-10.8) H* 02/02/25 08:26 RBC 3.77 M/uL (4.20-5.40) L 02/02/25 08:26 Hgb 9.2 g/dl (12.0-16.0) L 02/02/25 08:26 Hct 33.2 % (37.0-47.0) L 02/02/25 08:26 MCV 88.1 fL (80.0-100.0) 02/02/25 08:26 MCH 24.4 pg (25.0-34.0) L 02/02/25 08:26 MCHC 27.7 g/dL (32.0-36.0) L 02/02/25 08:26 RDW Std Deviation 59.6 fL (36.4-46.3) H 02/01/25 06:07 RDW Coeff of Jillian 21.4 % (11.5-14.5) H 02/01/25 06:07 Plt Count 66 K/uL (130-400) L 02/02/25 08:26 MPV 9.8 fL (9.4-12.4) 02/02/25 08:26 Immature Gran % (Auto) 0.1 % 02/02/25 08:26 Neut % (Auto) 0.5 % 02/02/25 08:26 Lymph % (Auto) 95.0 % 02/02/25 08:26 [place] % (Auto) 4.1 % 02/02/25 08:26 Eos % (Auto) 0.1 % 02/02/25 08:26 Baso % (Auto) 0.2 % 02/02/25 08: Neut # (Auto) 2.03 K/uL (1.40-6.50) 02/02/25 08:26 Lymph # (Auto) 340.56 K/uL (1.20-3.40) H 02/02/25 08:26 Otoe # (Auto) 14.63 K/uL (0.11-0.59) H 02/02/25 08:26 Eos # (Auto) 0.19 K/uL (0.00-0.50) 02/02/25 08: Baso # (Auto) 0.64 K/uL (0.00-0.20) H 02/02/25 08:26 Immature Gran # (Auto) 0.29 K/uL (0.01-0.20) H 02/02/25 08:26 Neutrophils % (Manual) 3 % 01/29/25 06:05 Lymphocytes % (Manual) 96 % 01/29/25 06:05 Monocytes % (Manual) 1 % 01/29/25 06:05 Neutrophils # (Manual) 8.92 K/uL (1.40-6.50) H 01/29/25 06:05 Total Absolute Neuts 8.92 K/uL (1.4-6.5) H 01/29/25 06:05 Lymphocytes # (Manual) 285.32 K/uL (1.2-3.4) H 01/29/25 06:05 Total Abs Lymphocytes 285.32 K/uL (1.2-3.4) H 01/29/25 06:05 Monocytes # (Manual) 2.97 K/uL (0.11-0.59) H 01/29/25 06:05 Smudge Cells Present 02/01/25 06:07 Polychromasia 2+ 02/02/25 08:26 Hypochromasia Present 02/02/25 08:26 Anisocytosis Present 02/01/25 06:07 Echinocytes 1+ 01/31/25 05:38 PT 11.2 Seconds (9.0-12.0) 01/28/25 14:13 INR 1.1 (0.9-1.1) 01/28/25 14:13 APTT 24 Seconds (21-31) 01/28/25 14:13 PTT Ratio 0.9 01/28/25 14:13 Sodium 129 mmol/L (136-145) L 02/02/25 08:26 Potassium 4.0 mmol/L (3.5-5.1) 02/02/25 08:26 Chloride 96 mmol/L (98-107) L 02/02/25 08:26 Carbon Dioxide 32 mmol/L (21-32) 02/02/25 08:26 Anion Gap 1 (3-11) L 02/02/25 08:26 BUN 19 mg/dl (6-23) 02/02/25 08:26 Creatinine 0.97 mg/dl (0.6-1.2) 02/02/25 08:26 Est Cr Clr Drug Dosing 39.9 ml/min 02/02/25 08:26 eGFR 63.65 02/02/25 08:26 BUN/Creatinine Ratio 19.6 (10-20) 02/02/25 08:26 Glucose 108 mg/dl (70-99(Fasting)) H 02/02/25 08:26 Lactate 0.3 mmol/L (0.4-2.0) L 01/28/25 21:26 Calcium 7.5 mg/dl (8.6-10.3) L 02/02/25 08:26 Ionized Calcium 1.04 mmol/L (1.12-1.32) L 01/30/25 07:24 Total Bilirubin 0.8 mg/dl (0.2-1.0) 01/29/25 07:08 AST 25 U/L (13-39) 01/29/25 07:08 ALT 15 U/L (7-52) 01/29/25 07:08 Alkaline Phosphatase 95 U/L (34-104) 01/29/25 07:08 Troponin I High Sens 5.5 pg/ml (0-14) D 01/28/25 17:11 B-Natriuretic Peptide 145 pg/ml (0-100) H 01/28/25 14:13 Total Protein 4.6 gm/dl (6.0-8.3) L D 01/29/25 07:08 Albumin 2.9 gm/dl (3.4-5.0) L 01/29/25 07:08 Globulin 1.7 gm/dl (2.5-4.0) L 01/29/25 07:08 Albumin/Globulin Ratio 1.7 (0.9-2) 01/29/25 07:08 Lipase 11 U/L (11-82) 01/28/25 14:13 Urine Color Yellow 01/28/25 Unknown Urine Appearance Clear (Clear) 01/28/25 Unknown Urine pH 7.5 (4.5-7.5) 01/28/25 Unknown Ur Specific [place] 1.018 (1.000-1.030) 01/28/25 Unknown Urine Protein Negative (Negative) 01/28/25 Unknown Urine Glucose (UA) Negative (Negative) 01/28/25 Unknown Urine Ketones Negative (Negative) 01/28/25 Unknown Urine Blood Negative (Negative) 01/28/25 Unknown Urine Nitrite Negative (Negative) 01/28/25 Unknown Urine Bilirubin Negative (Negative) 01/28/25 Unknown Urine Urobilinogen Negative (Negative) 01/28/25 Unknown Ur Leukocyte Esterase Negative (Negative) 01/28/25 Unknown Urine Comment 01/28/25 Unknown Random Vancomycin 12.9 mcg/ml (10-20) 01/31/25 05:38 Blood Type B Positive 01/29/25 08:11 Antibody Screen NEGATIVE 01/29/25 08:11 Crossmatch See Detail 01/29/25 08:11 Impressions Venous Doppler Study 01/28/25 13:54 Technique: Venous ultrasound evaluation was performed utilizing grayscale, color Doppler and wave form evaluation. Images were also obtained with and without compression Findings: The bilateral common femoral, superficial femoral, popliteal, and visualized calf veins demonstrate normal anechoic lumens with full compressibility. Normal flow is seen on color Doppler images. Expected waveforms were produced with augmentation maneuvers There are small bilateral inguinal lymph nodes, likely benign Impression: No evidence of deep venous thrombosis Electronically signed by Alexis High 01-28-2025 4:58 PM Chest X-Ray 01/28/25 13:56 Chest x-ray, 2 views History: Chest pain. Comparison: January 25, 2025 CT chest correlate. Study report not available at the time of dictation. Findings: Lung volume slightly decreased. Bronchovascular crowding. Nonspecific prominent mild diffuse bilateral increased interstitial markings. Lungs are otherwise clear. No acute pleural disease. Pulmonary vasculature is prominent. No sergio edema. Cardiomediastinal silhouette is within normal limits. Impression: Nonspecific mild diffuse increased bilateral interstitial markings. This unlikely represents pulmonary vascular congestion although this cannot be excluded. Interstitial inflammatory or infectious pneumonitis not excluded. Consider follow-up exam after therapy. Electronically signed by Chau Chinchilla 01-28-2025 5:07 PM Abdomen/Pelvis CT 01/28/25 14:00 CT SCAN OF THE ABDOMEN AND PELVIS WITH IV CONTRAST CLINICAL HISTORY: Generalized abdominal pain. Distention. COMPARISON STUDY: Abdominal CT dated 01/25/2025. TECHNIQUE: Following the IV administration of 94 cc of Optiray 320, CT scan of the abdomen and pelvis is performed from the lung bases to the proximal femora. Images are reviewed in the axial, sagittal, and coronal planes. IV contrast was administered without complication. A dose lowering technique was utilized adhering to the principles of ALARA. CT DOSE: 609.2 mGy.cm FINDINGS: Lung bases: The heart is mildly enlarged and without pericardial effusion. The coronary arteries are densely calcified. The lung bases are clear noting bibasilar atelectasis. Liver: The contrast-enhanced liver is normal in size, contour, and attenuation. There is mild to moderate intrahepatic biliary ductal dilatation. The hepatic veins and portal veins are patent. Gallbladder: Surgically absent noting clips in the gallbladder fossa. Spleen: The spleen is markedly enlarged, measuring 21.5 cm in length. Pancreas: Moderately atrophic and grossly unremarkable. Adrenal glands: Unremarkable. Kidneys: The contrast enhanced kidneys are normal in size and without hydronephrosis. The kidneys enhance symmetrically. Abdominal vasculature: The abdominal aorta is normal in course and caliber noting mild to moderate atherosclerotic calcification. Bowel: There is no bowel obstruction. Residual enteric contrast is seen throughout the colon. There is moderate to severe constipation. A portion of the normal appendix is seen in the right lower quadrant on image #221. Peritoneum: There is trace perisplenic ascites. No intraperitoneal free air is seen. Lymphadenopathy: There is bulky lymphadenopathy seen throughout the abdomen and pelvis comment is not appreciably changed from 01/25/2025. An aortocaval node on image #118 measures approximate 6 x 3.5 cm. A left periaortic node image #145 measures 2.5 x 2.1 cm, and a right external iliac chain node on image #283 measures 4.5 x 2.6 cm. There is confluent soft tissue thickening seen throughout the iliac chain bilaterally and in the presacral space. Pelvic viscera: The bladder is normal as visualized. The uterus is surgically absent. No adnexal lesion is seen. Skeletal structures: The skeletal structures are heterogeneously osteopenic. Degenerative change and scoliosis is noted in the lumbar spine. No lytic or blastic lesions are seen. Soft tissues: There is body wall edema. IMPRESSION: 1. Moderate to severe constipation. 2. There is bulky lymphadenopathy throughout the abdomen and pelvis with marked splenomegaly consistent with the known history of a lymphoproliferative disorder. This has not appreciably changed from 01/25/2025. 3. Diffuse soft tissue thickening is seen throughout the iliac chain bilaterally and in the presacral/perirectal space. This is likely related to the lymphoproliferative process. A superimposed proctitis would be impossible to exclude and clinical correlation will be essential. 4. Cardiomegaly noting coronary artery atherosclerosis. 5. Additional findings as above. ACT 112: Negative or not required by law. Electronically signed by: Abraham Cornejo M.D. 01/28/2025 4:21 PM Aorta w/Runoff CTA 01/29/25 09:03 Clinical history: Pain Technique: Axial computed tomography images were obtained of the abdomen, pelvis, lower extremities after the administration of intravenous contrast according to the CT angiogram protocol. Oral contrast was given No prior examination is available for comparison Findings: The abdominal aorta appears unremarkable with no sign of aneurysm or dissection. No stenosis is seen involving it. The celiac axis and superior mesenteric artery are not visualized. The visualized renal arteries appear unremarkable. The right common iliac, external iliac, and internal iliac arteries appear unremarkable. No stenosis is seen of the right common femoral artery. The right profunda femoral artery is patent. There is no significant stenosis of the right superior femoral or popliteal arteries. The right anterior tibial and peroneal arteries are patent. The right posterior tibial artery appears occluded proximally The left common iliac, external iliac, and internal iliac arteries appear unremarkable. No stenosis is seen of the left common femoral artery. The left profunda femoral artery is patent. There is no significant stenosis of the left superior femoral or popliteal arteries. The left anterior tibial and peroneal arteries appear normal. The distal left posterior tibial artery is diminutive, which may be on a congenital basis Only the lower portion of the liver is visualized. The visualized liver is overall of normal size, attenuation, and contour with no sign of cirrhosis or significant fatty infiltration. No liver mass lesion is seen. The portal vein is patent. The gallbladder is not visualized. No bile duct dilatation is noted. The spleen is enlarged measuring 20 cm. No focal splenic lesion is evident. The pancreas appears normal with no sign of acute or chronic pancreatitis and no mass lesion noted. The pancreatic duct is of normal caliber. The adrenal glands appear unremarkable. The upper kidneys are not visualized. There is no hydronephrosis or perinephric stranding. No renal mass lesion is identified. There is confluent retroperitoneal adenopathy, measuring up to 6.8 x 3.4 cm. There is no sign of small bowel obstruction. There is constipation. There is apparent wall thickening of the sigmoid colon and rectum. No free intraperitoneal fluid or air is identified. There is bilateral iliac chain adenopathy, measuring up to 3.7 cm. No bladder mass lesion is evident. No fracture is identified. No focal osseous lesion is seen. There is severe left knee osteoarthritis. There is grade 1 anterolisthesis at L4-5. There is lumbar scoliosis and degenerative disc disease. There are bilateral calcaneal spurs Impression: 1. Bulky abdominal and pelvic adenopathy, consistent with metastatic disease or lymphoma 2. Apparent wall thickening of the traversing right colon and rectum. While this could be due to inflammatory bowel disease or infectious colitis,: Carcinoma is also possible 3. Severe splenomegaly 4. Normal-appearing abdominal aorta 5. No definite stenosis of the pelvic or proximal bilateral leg arteries 6. Apparent occlusion of the right [employer] ACT 112: Positive. There are findings on this exam that require communication between the performing entity and the patient following Patient Test Result Information Act ([place] ACT 112) guidelines. Electronically signed by Alexis High 01-29-2025 10:14 AM Medications Administered Current Inpatient Medications Acetaminophen/Butalbital/Caffeine (Butalbital/Acetamin/Caffeine Tab) 1 tab PO TID PRN PRN Reason: TENSION HEADACHES Stop: 02/27/25 22:11 Last Admin: 02/01/25 14:26 Dose: 1 tab Acyclovir (Acyclovir 400 Mg Tab) 400 mg PO TID [facility] Stop: 02/27/25 22:11 Last Admin: 02/02/25 08:11 Dose: 400 mg Artificial Tears (Artificial Tears) 1 drops OP PRN PRN PRN Reason: Dry Eyes Stop: 02/27/25 22:43 Cetirizine HCl (Cetirizine Hcl 10 Mg Tablet) 10 mg PO QAM [facility] Stop: 02/28/25 08:59 Last Admin: 02/02/25 08:20 Dose: 10 mg Cyclobenzaprine HCl (Cyclobenzaprine Hcl 10 Mg Tab) 10 mg PO TID [facility] Stop: 02/27/25 22:11 Last Admin: 02/02/25 08:19 Dose: 10 mg Enoxaparin Sodium (Enoxaparin Inj 30 Mg/0.3 Ml Syr) 30 mg SQ QAM [facility] Stop: 02/05/25 10:14 Famotidine (Famotidine 20 Mg Tab) 20 mg PO BID PRN PRN Reason: Heartburn Stop: 02/27/25 22:11 Last Admin: 02/01/25 02:43 Dose: 20 mg Fluticasone Propionate (Fluticasone Propionate Na Spr 16 Gm Btl) 2 sprays NA DAILY [facility] Stop: 02/28/25 08:59 Last Admin: 02/02/25 08:20 Dose: Not Given Furosemide (Furosemide 40 Mg/4 Ml Vial) 40 mg IV DAILY [facility] Stop: 02/03/25 08:59 Last Admin: 02/02/25 08:31 Dose: 40 mg Guaifenesin (Guaifenesin 600 Mg Tabcr) 1,200 mg PO Q12 [facility] Stop: 02/27/25 20:59 Last Admin: 02/02/25 08:20 Dose: 1,200 mg Piperacillin Sod/Tazobactam Sod (Zosyn) 4.5 gm in 100 mls @ 25 mls/hr IV Q8H [facility]; Protocol Stop: 02/05/25 01:59 Last Admin: 02/02/25 09:54 Dose: 25 mls/hr Ketorolac Tromethamine (Ketorolac 0.5% Op Soln 5 Ml Btl) 1 drops OPB TID [facility] Stop: 02/27/25 22:11 Last Admin: 02/02/25 08:22 Dose: 1 drops Ketorolac Tromethamine (Ketorolac Tromethamine 10 Mg Tablet) 10 mg PO TID [facility] Stop: 02/05/25 09:01 Last Admin: 02/02/25 08:18 Dose: 10 mg Levothyroxine Sodium (Levothyroxine Sodium 175 Mcg Tablet) 175 mcg PO DAILYBB [facility] Stop: 02/28/25 06:29 Last Admin: 02/02/25 06:40 Dose: 175 mcg Loperamide HCl (Loperamide Hcl 2 Mg Cap) 2 mg PO Q6H PRN PRN Reason: Diarrhea Stop: 02/27/25 22:11 Meclizine HCl (Meclizine Hcl 25 Mg Tab) 25 mg PO QID [facility] Stop: 02/27/25 22:11 Last Admin: 02/02/25 08:16 Dose: 25 mg Metoprolol Succinate (Metoprolol Succ 50mg Ext Rel Tab) 150 mg PO QAM [facility] Stop: 02/28/25 08:59 Last Admin: 02/02/25 08:21 Dose: 150 mg Metoprolol Tartrate (Metoprolol Tartrate 50 Mg Tab) 50 mg PO TID PRN PRN Reason: tachycardia Stop: 02/27/25 22:11 Miscellaneous (Olopatadine 0.1%: Order Awaiting Action) 1 each N/A QS [facility] Stop: 02/28/25 07:59 Last Admin: 02/02/25 08:10 Dose: Not Given Morphine Sulfate (Morphine Sulfate Cr 15 Mg Tabcr) 30 mg PO BID [facility] Stop: 02/11/25 22:11 Last Admin: 02/02/25 08:30 Dose: 30 mg Multi-Ingredient Mouthwash/Gargle (First - Mouthwash Blm 5 Ml Udp) 5 ml PO Q6H PRN PRN Reason: MOUTH SORE FROM CHEMO Stop: 02/27/25 23:21 Nabumetone (Nabumetone 500 Mg Tablet) 750 mg PO BID [facility] Stop: 02/26/25 23:59 Ofloxacin (Ofloxacin 0.3% 75 Drops/5 Ml Btl) 1 drops OPB TID [facility] Stop: 02/07/25 22:11 Last Admin: 02/02/25 08:22 Dose: 1 drops Ondansetron HCl (Ondansetron Inj 2 Mg/Ml 2 Ml Vial) 4 mg IV Q6H PRN PRN Reason: Nausea Stop: 02/27/25 20:40 Last Admin: 02/02/25 08:07 Dose: 4 mg Ondansetron HCl (Ondansetron 4 Mg Od Tab) 8 mg PO TID PRN PRN Reason: NAUSEA/VOMITING Stop: 02/27/25 22:45 Last Admin: 01/31/25 22:07 Dose: 8 mg Oxycodone HCl (Oxycodone Hcl Ir 5 Mg Tab (Immediate Release)) 20 mg PO TID PRN PRN Reason: pain Stop: 02/11/25 22:11 Last Admin: 02/02/25 02:18 Dose: 20 mg Oxymetazoline HCl (Oxymetazoline 0.05% 30 Ml Btl) 2 sprays NA Q4H PRN PRN Reason: Congestion Stop: 02/27/25 22:11 Pantoprazole Sodium (Pantoprazole 40 Mg Tab) 40 mg PO BID [facility] Stop: 02/27/25 22:11 Last Admin: 02/02/25 08:16 Dose: 40 mg Pilocarpine HCl (Pilocarpine Hcl 5 Mg Tablet) 5 mg PO QID [facility] Stop: 02/27/25 22:11 Last Admin: 02/02/25 08:14 Dose: 5 mg Potassium Chloride (Potassium Chloride 10 Meq Caper) 20 meq PO BID WALT Stop: 02/27/25 21:29 Last Admin: 02/02/25 08:17 Dose: 20 meq Promethazine HCl (Promethazine Hcl 25 Mg Tab) 25 mg PO Q4H PRN PRN Reason: nausea and vomiting Stop: 02/27/25 22:11 Pseudoephedrine HCl (Pseudoephedrine Hcl 30 Mg Tab) 30 mg PO DAILY PRN PRN Reason: Congestion Stop: 02/27/25 22:11 Last Admin: 02/01/25 02:37 Dose: 30 mg Silver Sulfadiazine (Silver Sulfadiazine 1% Cr 50 Gm Jar/Tube) 1 appln TOP BID PRN PRN Reason: wound healing Stop: 02/27/25 22:11 Last Admin: 01/29/25 21:52 Dose: 1 appln Sumatriptan Succinate (Sumatriptan Succinate 100 Mg Tab) 100 mg PO DAILY PRN PRN Reason: migraine headache Stop: 02/27/25 22:11 Timolol Maleate (Timolol Maleate 0.5% Op Soln 5 Ml Btl) 1 drops OP BID WALT Stop: 02/27/25 22:11 Last Admin: 02/02/25 08:22 Dose: 1 drops Zanubrutinib (Zanubrutinib 80 Mg Cap) 160 mg PO BID WALT Stop: 02/27/25 20:59 Last Admin: 02/02/25 08:18 Dose: 160 mg Zolpidem Tartrate (Zolpidem Tartrate 5 Mg Tab) 10 mg PO HS PRN PRN Reason: Sleep Stop: 02/27/25 22:11 PG Care Time/CCT Total # of Minutes Spent Total Time Spent with Patient: Total time spent is greater than 50% in coordination of care (as documented) at patient's floor/unit and/or counseling patient: Coding Level of Care Code 98987 SUB INP/OBS CARE 2/35MIN Diagnoses Cellulitis, leg L03.119 Gastric mass K31.89 Time Spent (min) 32
[2025-02-02] MEDS: ENOXAPARIN INJ 30 MG/0.3 ML SYR SQ SCH (11:28)
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
[2025-02-02] MEDS: HYDROmorphone INJ 0.5 MG/0.5 ML SYR IV PRN (19:37)
[2025-02-02] MEDS: POLYETHYLENE (MIRALAX) 17 GM PACK PO SCH (21:40)
[2025-02-03 08:14] LABS: Hematocrit (blood only) 30.9 % (37.0-47.0); Hemoglobin 8.2 g/dl (12.0-16.0); Immature Granulocytes # (auto) 0.25 K/uL (0.01-0.20); Immature Granulocytes % (auto) 0.1 %; Mean Corpuscular Hemoglobin 23.5 pg (25.0-34.0); Mean Corpuscular Volume 88.5 fL (80.0-100.0); Platelet Count 63 K/uL (130-400); Polychromasia 1+; Red Blood Count 3.49 M/uL (4.20-5.40); Smudge Cells Present; White Blood Count 361.03 K/ul (4.8-10.8)
[2025-02-03] MEDS: ALUMINUM/MAGNESIUM SUSP 30 ML UDC PO STA (08:20)
[2025-02-03 08:23] LABS: Albumin Level 3.1 gm/dl (3.4-5.0); Anion Gap 8.0 (3-11); Bilirubin,Total 1.0 mg/dl (0.2-1.0); Calcium 7.9 mg/dl (8.6-10.3); Carbon Dioxide 29.0 mmol/L (21-32); Chloride 95.0 mmol/L (98-107); Potassium 4.1 mmol/L (3.5-5.1); Sodium 132.0 mmol/L (136-145)
[2025-02-03 08:29] LABS: Alanine Aminotransferase 10.0 U/L (7-52); Albumin Globulin Ratio 1.8 (0.9-2); Alkaline Phosphatase 81.0 U/L (34-104); Blood Urea Nitrogen 20.0 mg/dl (6-23); Creatinine Clr Calc Pharmacy 39.5 ml/min; Globulin 1.7 gm/dl (2.5-4.0); Glucose 96.0 mg/dl (70-99(Fasting)); Total Protein 4.8 gm/dl (6.0-8.3)
[2025-02-03] MEDS: HYDROmorphone INJ 0.5 MG/0.5 ML SYR IV ONE (08:42)
[2025-02-03] MEDS: HYOSCYAMINE SULFATE 0.125 MG TAB PO STA (08:42)
[2025-02-03] MEDS: LACTULOSE SYRUP 20 GM/30 ML UDC PO SCH (11:13)
--- NOTE | 2025-02-03 11:56 | Hospitalist Progress Note ---
Date of Service February 03, 2025 Assessment & Plan (1) Cellulitis, leg: (2) Gastric mass: Plan Diana Pan is a 69 yo woman with hx of lymphedema, sinusitis, sjogren syndrome, progessive CLL failed multiple regime, posterior scalp lesion (biopsy positive for lymphoma), PSVT, ankylosing spondylitis, GERD, hx of PE, chronic hyponatremia, hx of chronic pain on morphine and oxycodone (following with Dr. Driscoll), papillory thyroid cancer (s/p thyroidectomy), b12 deficiency, multiple drug allergy she's has CLL since 2009 and failed multiple regime, currently on Brukinsa 160mg BID, she's has a posterior scalp lesion and biopsy in 2023 positive for lymphoma she's being followed for lymph node in her lumbar/sacral region. 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 she's has staging CT scan every 3-4 months and that found diffuse lymphadenopathy; gastric mass, she see urology and has cystoscopy on 08/17 found inflammation int eh posterior wall and extrinsic compression from lymphadenopathy. she's was about to see GI (Jeff[facility]), but they need to rule out mass her spinal column prior to colonoscopy. since October 2024; she has diffuse skin lesion in her upper back and right anterior shoulder and oncology trying to has dermatology evaluate her. she's been having worsening leg edema and did not improved with lasix and metolazoine since yesterday, she's been having worsening discharge from her leg, foot edema and skin lesions. in her toes she's came to our hospital and was found to has b/l celllulitis, hypotension 1. b/l cellulitis with hypotension, chronic sinusitis 2. lower abdominal pain, thickenig of perirectal space, constipation 3. hx of MSSA infection. 4. weight loss of 30-40 lbs 5. polypoid lesion in the stomach 6. recurrent anemia needing weekly blood transfusion 7. hx of CLL , failed multiple reegime 8. hx of DVT 9. anklosing spondylitis 10. GERD 11. hx of PE 12. migraine headache 13. hx of glaucoma 14. hypothyroidism, hx of papillary thryoid cancer s/p surgery 1. b/l cellulitis, sinusitis; proctitis. her right leg pain is improving, c/w IV zosyn. c/w lasix IV daily 2. LLQ pain, thickening of perirectal space on CT abdomen splenomegaly GI seen her on 02/02, defer endoscopy given her thrombocytopenia she's is having constipation and abdominal pain, started on lactulose. f/u on KUB level continue to monitor for her platelet level 3. thrombocytopenia, monitor while on lovenox keep platelet > 50k trend h/h to r/o blood loss anemia, low threshold for platelet transfusion if h/h drop proctitis that was found on CT abdomen, she's seeing Dr. Soto ([facility]) she following with [facility] for and plan for colonoscopy after clearance. 2. hypocalcemia, calcium gluconate, trend calcium level 3. weight loss of 30-40 lbs, her CT abdomen show soft tissue thickening in the iliac chain b/l in the pre- sacral and perirectgal space also found 1.5 intraluminal polypoid inside the stomach. she was seeing GI, Dr. Soto for EGD and plan for EUS GI, Dr. Hallie Lopez defer endoscopic evaluation given her thrombocytopenia she's has severe claustrophobia with MRI 4. CLL (diagnosed since 2009) currently on brukinsa 160mg BID Savannah Couch is working with [facility] hematology, diagnosed in 2009, started treatment on Apr 2014 with bendamustine/rituximab but she's stop after 3 cycle of treatment given her nausea and vomiting. dec 2016, started obinutuzumab but dc after 4 cycles given cardiac issues, GI symptoms and BP issues on 01/2018, started on venectoclax and has remission on 12/2022, CT scan show disease progression, briefly on IV rituximab but then has upper abdominal pain, headache and body achies she was on acalabrutinib 100mg PO daily on 09/07/2023 but noted disease prog ression has posterior scalp biopsy (January 15, 2024), dr. 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 hx of papillary thyroid cancer, hypothyroidism levothyroxine 175mcg 6. PSVT, metoprolol XL 150mg morning, metoprolol XL 100mg evening PRN metoprolol tartrate she's on lasix 60mg and she's on metolazone before lasix 7. recurrent sinusitis she was on augmentin at home, she's on zosyn while here she's on afrin oxymetazoline and pseudoephedrine 8. sjogren disease, she's on pilocarpine 5mg QID 9. chronic back pain, ankylosing spondylitis morphine ER 30mg BID home med oxycodone 20mg TID PRN she's on nabumetone 750mg BID and toradol oral 10mg TID cyclobenzaprine 10mg TID 10. GERD, protonix 40mg BID, PRN pepcid. 11. migraine headache, sumatriptan PRN, she's on PRN fiorcet. 12. glaucoma-timolol maleate 0.5 daily BID she's reportedly on on ofloxacin 0.3% eye drop and olopatadine 0.1% BID and ketorolax 0.5% eye drop. 13. prophylaxis, she's on ayclovir 400mg TID code status: Full code Admission and Anticipated Discharge Date Admission Date: January 28, 2025 Subjective she mentioned pain, lower abdominal pain, suspect her lower abdominal pain is related to constipation started on lactulose deferring suppository given her thrombocytopenia she's continue to requested for nacrotic. may benefit from methylnaltrexone if she's cannot make bowel movement seen by but the colonoscopy was deferring given her thrombocytopenia for her left leg cellulitis, ongoign left pain plan to trend her procalcitonin and ESR while on IV zosyn she has CLL, lymphoma. she's has progressive despite multiple regime. called yesterday but went to voicemail Physical Exam Physical Exam: VITALS: Reviewed. WEIGHT/BMI reviewed. GEN: chronically ill appearing HEENT -Head: NC/AT; NECK: Supple, with no masses. CV: RRR, no m/r/g. LUNGS: CTAB, no w/r/c. ABD: distended; hypoactive bowel sound; no ascites noted. no bruising noted SKIN: multiple skin lesion on the back and leg MSK: + for edema EXT: left leg tender to palpation NEURO: AAOx3 Results & Data Results & Data Vital Signs (Past 12 Hours) Vital Signs Temp Pulse Pulse Resp BP Pulse Ox O2 Del Method 02/03/25 10:52 70 121/52 L 02/03/25 08:08 36.6 C 60 20 114/62 95 Room Air 02/03/25 07:46 Room Air 02/03/25 07:17 65 02/03/25 03:11 36.6 C 66 18 119/62 93 Room Air 02/03/25 00:40 68 Laboratory Results Laboratory Results - last 72 hr 01/29/25 02/01/25 02/02/25 08:11 06:07 08:26 WBC 335.23 H* 358.34 H* RBC 3.71 L 3.77 L Hgb 9.1 L 9.2 L Hct 32.7 L 33.2 L MCV 88.1 88.1 MCH 24.5 L 24.4 L MCHC 27.8 L 27.7 L RDW Std Deviation 59.6 H RDW Coeff of Jillian 21.4 H Plt Count 59 L 66 L MPV 10.5 9.8 Immature Gran % (Auto) 0.1 0.1 Neut % (Auto) 0.5 0.5 Lymph % (Auto) 95.3 95.0 Marin % (Auto) 3.8 4.1 Eos % (Auto) 0.1 0.1 Baso % (Auto) 0.2 0.2 Neut # (Auto) 1.85 2.03 Lymph # (Auto) 319.56 H 340.56 H Marin # (Auto) 12.74 H 14.63 H Eos # (Auto) 0.17 0.19 Baso # (Auto) 0.68 H 0.64 H Immature Gran # (Auto) 0.23 H 0.29 H Smudge Cells Present Polychromasia 2+ Hypochromasia Present Anisocytosis Present Sodium 128 L 129 L Potassium 4.2 4.0 Chloride 96 L 96 L Carbon Dioxide 30 32 Anion Gap 2 L 1 L BUN 16 19 Creatinine 0.96 0.97 Est Cr Clr Drug Dosing 40.3 39.9 eGFR 64.45 63.65 BUN/Creatinine Ratio 16.7 19.6 Glucose 84 108 H Calcium 7.3 L 7.5 L Total Bilirubin AST ALT Alkaline Phosphatase Total Protein Albumin Globulin Albumin/Globulin Ratio Crossmatch See Detail 02/03/25 06:03 WBC 361.03 H* RBC 3.49 L Hgb 8.2 L Hct 30.9 L MCV 88.5 MCH 23.5 L MCHC 26.5 L RDW Std Deviation RDW Coeff of Jillian Plt Count 63 L MPV 9.4 Immature Gran % (Auto) 0.1 Neut % (Auto) 0.5 Lymph % (Auto) 95.4 Marin % (Auto) 3.8 Eos % (Auto) 0.1 Baso % (Auto) 0.1 Neut # (Auto) 2.00 Lymph # (Auto) 344.49 H Marin # (Auto) 13.62 H Eos # (Auto) 0.22 Baso # (Auto) 0.45 H Immature Gran # (Auto) 0.25 H Smudge Cells Present Polychromasia 1+ Hypochromasia Anisocytosis Sodium 132 L Potassium 4.1 Chloride 95 L Carbon Dioxide 29 Anion Gap 8 BUN 20 Creatinine 0.98 Est Cr Clr Drug Dosing 39.5 eGFR 62.87 BUN/Creatinine Ratio 20.4 H Glucose 96 Calcium 7.9 L Total Bilirubin 1.0 AST 14 ALT 10 Alkaline Phosphatase 81 Total Protein 4.8 L Albumin 3.1 L Globulin 1.7 L Albumin/Globulin Ratio 1.8 Crossmatch PG Care Time/CCT Total # of Minutes Spent Total Time Spent with Patient: Total time spent is greater than 50% in coordination of care (as documented) at patient's floor/unit and/or counseling patient: Coding Level of Care Code 68947 SUB INP/OBS CARE /25MIN Diagnoses Cellulitis, leg L03.119 Gastric mass K31.89 Time Spent (min) 20
--- NOTE | 2025-02-03 16:00 | Electrocardiogram Report ---
Test Reason : Blood Pressure : */* mmHG Vent. Rate : 68 BPM Atrial Rate : 68 BPM P-R Int : 194 ms QRS Dur : 84 ms QT Int : 372 ms P-R-T Axes : 21 -11 15 degrees QTcB Int : 395 ms Normal sinus rhythm Nonspecific T wave abnormality Abnormal ECG When compared with ECG of 28-Jan-2025 14:23, Sinus rhythm has replaced Junctional rhythm Nonspecific T wave abnormality now evident in Lateral leads Confirmed by Mello Luna [id number] on 02/03/2025 3:59:45 PM Referred By: REFERRED SELF Confirmed By: Mello Luna
[2025-02-03] MEDS: METOCLOPRAMIDE HCL INJ 5 MG/ML 2 ML VIAL IV PRN (17:37)
[2025-02-03] MEDS: HYDROmorphone INJ 0.5 MG/0.5 ML SYR IV PRN (23:46)
[2025-02-04] MEDS: ONDANSETRON INJ 2 MG/ML 2 ML VIAL IV STA (00:49)
[2025-02-04 07:47] LABS: Alanine Aminotransferase 13 U/L (7-52); Albumin Globulin Ratio 2.4 (0.9-2); Albumin Level 3.6 gm/dl (3.4-5.0); Alkaline Phosphatase 120 U/L (34-104); Anion Gap 7 (3-11); Bilirubin,Total 1.0 mg/dl (0.2-1.0); Blood Urea Nitrogen 22 mg/dl (6-23); Calcium 8.1 mg/dl (8.6-10.3); Carbon Dioxide 28 mmol/L (21-32); Chloride 96 mmol/L (98-107); Creatinine Clr Calc Pharmacy 41.0 ml/min; Globulin 1.5 gm/dl (2.5-4.0); Glucose 117 mg/dl (70-99(Fasting)); Potassium 4.1 mmol/L (3.5-5.1); Sodium 131 mmol/L (136-145); Total Protein 5.1 gm/dl (6.0-8.3)
[2025-02-04 08:45] LABS: Hematocrit (blood only) 33.5 % (37.0-47.0); Hemoglobin 9.0 g/dl (12.0-16.0); Mean Corpuscular Hemoglobin 24.3 pg (25.0-34.0); Mean Corpuscular Volume 90.5 fL (80.0-100.0); Platelet Count 75 K/uL (130-400); Red Blood Count 3.70 M/uL (4.20-5.40)
[2025-02-04 08:49] LABS: ALC (manual) 469.85 K/uL (1.2-3.4); ANC (manual) 4.75 K/uL (1.4-6.5)
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
--- NOTE | 2025-02-04 16:03 | XRay Report ---
KUB HISTORY: n/v, r/o SBO COMPARISON STUDY: CT of 01/28/2025 FINDINGS: Stable right upper quadrant surgical clips. There is moderate retained stool. No bowel obst ruction seen. No gross free air. Grossly stable prominent splenomegaly. IMPRESSION: No acute findings seen. ACT 112: Negative or not required by law. The above report was generated using voice recognition software. It may contain grammatical, syntax o r spelling errors. Electronically signed by: Vish Shelley M.D. 02/04/2025 4:02 PM
--- NOTE | 2025-02-04 16:34 | Hospitalist Progress Note ---
Date of Service February 04, 2025 Assessment & Plan (1) Cellulitis, leg: (2) Gastric mass: Plan Diana Pan is a 69 yo woman with hx of lymphedema, sinusitis, sjogren syndrome, progessive CLL failed multiple regime, posterior scalp lesion (biopsy positive for lymphoma), PSVT, ankylosing spondylitis, GERD, hx of PE, chronic hyponatremia, hx of chronic pain on morphine and oxycodone (following with Dr. Driscoll), papillory thyroid cancer (s/p thyroidectomy), b12 deficiency, multiple drug allergy she's has CLL since 2009 and failed multiple regime, currently on Brukinsa 160mg BID, she's has a posterior scalp lesion and biopsy in 2023 positive for lymphoma she's being followed for lymph node in her lumbar/sacral region. she following with our test engineering manager and lyla test engineering manager and typically receiving weekly blood transfusion she's lost 30-40 lbs in 2024. she's has staging CT scan every 3-4 months and that found diffuse lymphadenopathy; gastric mass, she see urology and has cystoscopy on 08/17 found inflammation int eh posterior wall and extrinsic compression from lymphadenopathy. she's was about to see GI (Jeffery), but they need to rule out mass her spinal column prior to colonoscopy. since October 2024; she has diffuse skin lesion in her upper back and right anterior shoulder and oncology trying to has dermatology evaluate her. she's been having worsening leg edema and did not improved with lasix and metolazoine since yesterday, she's been having worsening discharge from her leg, foot edema and skin lesions. in her toes she's came to our hospital and was found to has b/l celllulitis, hypotension 1. b/l cellulitis with hypotension, chronic sinusitis 2. lower abdominal pain, thickening of perirectal space, constipation 3. diarrhea 3. hx of MSSA infection. 4. weight loss of 30-40 lbs 5. polypoid lesion in the stomach 6. recurrent anemia needing weekly blood transfusion 7. hx of CLL , failed multiple reegime 8. hx of DVT 9. anklosing spondylitis 10. GERD 11. hx of PE 12. migraine headache 13. hx of glaucoma 14. hypothyroidism, hx of papillary thryoid cancer s/p surgery 1. b/l cellulitis, sinusitis; proctitis. her right leg pain is improving, c/w IV zosyn. c/w lasix IV daily spoke with ID, decision is to continue to IV zosyn 2. LLQ pain, thickening of perirectal space on CT abdomen splenomegaly GI seen her on 02/02, defer endoscopy given her thrombocytopenia she's is having constipation and abdominal pain, her constipation resolved with lactulose however, still has ongoing abdominal pain f/u on KUB level continue to monitor for her platelet level 3. diarrhea episode hold lactulose, f/u on C. difficile toxin empiric ORAL vancomycin, de-escalate once C. difficile negaative 3. thrombocytopenia, monitor while on lovenox keep platelet > 50k trend h/h to r/o blood loss anemia, low threshold for platelet transfusion if h/h drop proctitis that was found on CT abdomen, she's seeing Dr. Soto ([facility]) she following with [facility] for and plan for colonoscopy after clearance. 2. hypocalcemia, calcium gluconate, trend calcium level 3. weight loss of 30-40 lbs, her CT abdomen show soft tissue thickening in the iliac chain b/l in the pre- sacral and perirectgal space also found 1.5 intraluminal polypoid inside the stomach. she was seeing GI, Dr. Soto for EGD and plan for EUS GI, Dr. Hallie Lopez defer endoscopic evaluation given her thrombocytopenia she's has severe claustrophobia with MRI 4. CLL (diagnosed since 2009) currently on brukinsa 160mg BID Savannah Couch is working with [facility] hematology, diagnosed in 2009, started treatment on Apr 2014 with bendamustine/rituximab but she's stop after 3 cycle of treatment given her nausea and vomiting. dec 2016, started obinutuzumab but dc after 4 cycles given cardiac issues, GI symptoms and BP issues on 01/2018, started on venectoclax and has remission on 12/2022, CT scan show disease progression, briefly on IV rituximab but then has upper abdominal pain, headache and body achies she was on acalabrutinib 100mg PO daily on 09/07/2023 but noted disease progression has posterior scalp biopsy (January 15, 2024), dr. 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 hx of papillary thyroid cancer, hypothyroidism levothyroxine 175mcg 6. PSVT, metoprolol XL 150mg morning, metoprolol XL 100mg evening PRN metoprolol tartrate she's on lasix 60mg and she's on metolazone before lasix 7. recurrent sinusitis she was on augmentin at home, she's on zosyn while here she's on afrin oxymetazoline and pseudoephedrine 8. sjogren disease, she's on pilocarpine 5mg QID 9. chronic back pain, ankylosing spondylitis morphine ER 30mg BID home med oxycodone 20mg TID PRN she's on nabumetone 750mg BID and toradol oral 10mg TID cyclobenzaprine 10mg TID 10. GERD, protonix 40mg BID, PRN pepcid. 11. migraine headache, sumatriptan PRN, she's on PRN fiorcet. 12. glaucoma-timolol maleate 0.5 daily BID she's reportedly on on ofloxacin 0.3% eye drop and olopatadine 0.1% BID and ketorolax 0.5% eye drop. 13. prophylaxis, she's on ayclovir 400mg TID code status: Full code Admission and Anticipated Discharge Date Admission Date: January 28, 2025 Subjective her constipation resolved; on lactulose but developed watery diarrhea she's on zosyn and vancomycin, holding lactulose send for C. difficile; abdomen soft to touch she's continue to request dilaudid for her abdominal pain she's unable to tolerate her oral med her cellulitis is stable, she's on zosyn and vancomycin, nasal MRSA positive rectal lesion, GI is deferring colonoscopy given thrombocytopenia she has CLL, lymphoma. she's has progressive despite multiple regime. called yesterday but went to voicemail Physical Exam Physical Exam: VITALS: Reviewed. WEIGHT/BMI reviewed. GEN: chronically ill appearing HEENT -Head: NC/AT; -Mouth and throat: MMM. Normal gums, muc kiran, palate,. Good dentition. NECK: Supple, with no masses. CV: RRR, no m/r/g. LUNGS: CTAB, no w/r/c. ABD: Soft, NT/ND, NBS, no masses or organomegaly. lower abdomen tenderness SKIN: multiple skin lesion in the upper back MSK: + for lower extremity cellulitis; edema improving NEURO: AAOx3 Results & Data Results & Data Vital Signs (Past 12 Hours) Vital Signs Temp Pulse Pulse Resp BP Pulse Ox O2 Del Method 02/04/25 15:50 36.6 C 79 19 112/56 L 93 Room Air 02/04/25 11:29 36.8 C 78 19 117/60 96 Room Air 02/04/25 10:18 Room Air 02/04/25 07:36 36.7 C 73 18 104/57 L 96 Room Air 02/04/25 07:27 79 Laboratory Results Laboratory Results - last 72 hr 02/02/25 02/03/25 02/04/25 08:26 06:03 07:10 WBC 358.34 H* 361.03 H* RBC 3.77 L 3.49 L 3.70 L Hgb 9.2 L 8.2 L 9.0 L Hct 33.2 L 30.9 L 33.5 L MCV 88.1 88.5 90.5 MCH 24.4 L 23.5 L 24.3 L MCHC 27.7 L 26.5 L 26.9 L Plt Count 66 L 63 L 75 L MPV 9.8 9.4 9.8 Immature Gran % (Auto) 0.1 0.1 Neut % (Auto) 0.5 0.5 Lymph % (Auto) 95.0 95.4 [place] % (Auto) 4.1 3.8 Eos % (Auto) 0.1 0.1 Baso % (Auto) 0.2 0.1 Neut # (Auto) 2.03 2.00 Lymph # (Auto) 340.56 H 344.49 H [place] # (Auto) 14.63 H 13.62 H Eos # (Auto) 0.19 0.22 Baso # (Auto) 0.64 H 0.45 H Immature Gran # (Auto) 0.29 H 0.25 H Neutrophils % (Manual) 1 Lymphocytes % (Manual) 99 Neutrophils # (Manual) 4.75 Total Absolute Neuts 4.75 Lymphocytes # (Manual) 469.85 H Total Abs Lymphocytes 469.85 H Smudge Cells Present Polychromasia 2+ 1+ Hypochromasia Present Sodium 129 L 132 L 131 L Potassium 4.0 4.1 4.1 Chloride 96 L 95 L 96 L Carbon Dioxide 32 29 28 Anion Gap 1 L 8 7 BUN 19 20 22 Creatinine 0.97 0.98 1.02 Est Cr Clr Drug Dosing 39.9 39.5 41.0 eGFR 63.65 62.87 59.92 BUN/Creatinine Ratio 19.6 20.4 H 21.6 H Glucose 108 H 96 117 H Calcium 7.5 L 7.9 L 8.1 L Total Bilirubin 1.0 1.0 AST 14 33 ALT 10 13 Alkaline Phosphatase 81 120 H C-Reactive Protein < 0.50 Total Protein 4.8 L 5.1 L Albumin 3.1 L 3.6 Globulin 1.7 L 1.5 L Albumin/Globulin Ratio 1.8 2.4 H Procalcitonin Nasal Screen MRSA (PCR) 02/04/25 02/04/25 10:01 14:19 WBC RBC Hgb Hct MCV MCH MCHC Plt Count MPV Immature Gran % (Auto) Neut % (Auto) Lymph % (Auto) [place] % (Auto) Eos % (Auto) Baso % (Auto) Neut # (Auto) Lymph # (Auto) [place] # (Auto) Eos # (Auto) Baso # (Auto) Immature Gran # (Auto) Neutrophils % (Manual) Lymphocytes % (Manual) Neutrophils # (Manual) Total Absolute Neuts Lymphocytes # (Manual) Total Abs Lymphocytes Smudge Cells Polychromasia Hypochromasia Sodium Potassium Chloride Carbon Dioxide Anion Gap BUN Creatinine Est Cr Clr Drug Dosing eGFR BUN/Creatinine Ratio Glucose Calcium Total Bilirubin AST ALT Alkaline Phosphatase C-Reactive Protein Total Protein Albumin Globulin Albumin/Globulin Ratio Procalcitonin 0.04 Nasal Screen MRSA (PCR) Positive A Diagnostic Findings Laboratory Results WBC K/ul (4.8-10.8) 02/04/25 07:10 RBC 3.70 M/uL (4.20-5.40) L 02/04/25 07:10 Hgb 9.0 g/dl (12.0-16.0) L 02/04/25 07:10 Hct 33.5 % (37.0-47.0) L 02/04/25 07:10 MCV 90.5 fL (80.0-100.0) 02/04/25 07:10 MCH 24.3 pg (25.0-34.0) L 02/04/25 07:10 MCHC 26.9 g/dL (32.0-36.0) L 02/04/25 07:10 RDW Std Deviation 59.6 fL (36.4-46.3) H 02/01/25 06:07 RDW Coeff of Jillian 21.4 % (11.5-14.5) H 02/01/25 06:07 Plt Count 75 K/uL (130-400) L 02/04/25 07:10 MPV 9.8 fL (9.4-12.4) 02/04/25 07:10 Immature Gran % (Auto) 0.1 % 02/03/25 06:03 Neut % (Auto) 0.5 % 02/03/25 06:03 Lymph % (Auto) 95.4 % 02/03/25 06:03 [place] % (Auto) 3.8 % 02/03/25 06:03 Eos % (Auto) 0.1 % 02/03/25 06:03 Baso % (Auto) 0.1 % 02/03/25 06:03 Neut # (Auto) 2.00 K/uL (1.40-6.50) 02/03/25 06:03 Lymph # (Auto) 344.49 K/uL (1.20-3.40) H 02/03/25 06:03 [place] # (Auto) 13.62 K/uL (0.11-0.59) H 02/03/25 06:03 Eos # (Auto) 0.22 K/uL (0.00-0.50) 02/03/25 06:03 Baso # (Auto) 0.45 K/uL (0.00-0.20) H 02/03/25 06:03 Immature Gran # (Auto) 0.25 K/uL (0.01-0.20) H 02/03/25 06:03 Neutrophils % (Manual) 1 % 02/04/25 07:10 Lymphocytes % (Manual) 99 % 02/04/25 07:10 Monocytes % (Manual) 1 % 01/29/25 06:05 Neutrophils # (Manual) 4.75 K/uL (1.40-6.50) 02/04/25 07:10 Total Absolute Neuts 4.75 K/uL (1.4-6.5) 02/04/25 07:10 Lymphocytes # (Manual) 469.85 K/uL (1.2-3.4) H 02/04/25 07:10 Total Abs Lymphocytes 469.85 K/uL (1.2-3.4) H 02/04/25 07:10 Monocytes # (Manual) 2.97 K/uL (0.11-0.59) H 01/29/25 06:05 Smudge Cells Present 02/03/25 06:03 Polychromasia 1+ 02/03/25 06:03 Hypochromasia Present 02/02/25 08:26 Anisocytosis Present 02/01/25 06:07 Echinocytes 1+ 01/31/25 05:38 PT 11.2 Seconds (9.0-12.0) 01/28/25 14:13 INR 1.1 (0.9-1.1) 01/28/25 14:13 APTT 24 Seconds (21-31) 01/28/25 14:13 PTT Ratio 0.9 01/28/25 14:13 Sodium 131 mmol/L (136-145) L 02/04/25 07:10 Potassium 4.1 mmol/L (3.5-5.1) 02/04/25 07:10 Chloride 96 mmol/L (98-107) L 02/04/25 07:10 Carbon Dioxide 28 mmol/L (21-32) 02/04/25 07:10 Anion Gap 7 (3-11) 02/04/25 07:10 BUN 22 mg/dl (6-23) 02/04/25 07:10 Creatinine 1.02 mg/dl (0.6-1.2) 02/04/25 07:10 Est Cr Clr Drug Dosing 41.0 ml/min 02/04/25 07:10 eGFR 59.92 02/04/25 07:10 BUN/Creatinine Ratio 21.6 (10-20) H 02/04/25 07:10 Glucose 117 mg/dl (70-99(Fasting)) H 02/04/25 07:10 Lactate 0.3 mmol/L (0.4-2.0) L 01/28/25 21:26 Calcium 8.1 mg/dl (8.6-10.3) L 02/04/25 07:10 Ionized Calcium 1.04 mmol/L (1.12-1.32) L 01/30/25 07:24 Total Bilirubin 1.0 mg/dl (0.2-1.0) 02/04/25 07:10 AST 33 U/L (13-39) 02/04/25 07:10 ALT 13 U/L (7-52) 02/04/25 07:10 Alkaline Phosphatase 120 U/L (34-104) H 02/04/25 07:10 Troponin I High Sens 5.5 pg/ml (0-14) D 01/28/25 17:11 C-Reactive Protein < 0.50 mg/dl (0-0.5) 02/04/25 07:10 B-Natriuretic Peptide 145 pg/ml (0-100) H 01/28/25 14:13 Total Protein 5.1 gm/dl (6.0-8.3) L 02/04/25 07:10 Albumin 3.6 gm/dl (3.4-5.0) 02/04/25 07:10 Globulin 1.5 gm/dl (2.5-4.0) L 02/04/25 07:10 Albumin/Globulin Ratio 2.4 (0.9-2) H 02/04/25 07:10 Lipase 11 U/L (11-82) 01/28/25 14:13 Procalcitonin 0.04 ng/ml (0-0.5) 02/04/25 10:01 Urine Color Yellow 01/28/25 Unknown Urine Appearance Clear (Clear) 01/28/25 Unknown Urine pH 7.5 (4.5-7.5) 01/28/25 Unknown Ur Specific [place] 1.018 (1.000-1.030) 01/28/25 Unknown Urine Protein Negative (Negative) 01/28/25 Unknown Urine Glucose (UA) Negative (Negative) 01/28/25 Unknown Urine Ketones Negative (Negative) 01/28/25 Unknown Urine Blood Negative (Negative) 01/28/25 Unknown Urine Nitrite Negative (Negative) 01/28/25 Unknown Urine Bilirubin Negative (Negative) 01/28/25 Unknown Urine Urobilinogen Negative (Negative) 01/28/25 Unknown Ur Leukocyte Esterase Negative (Negative) 01/28/25 Unknown Urine Comment 01/28/25 Unknown Nasal Screen MRSA (PCR) Positive (Negative) A 02/04/25 14:19 Random Vancomycin 12.9 mcg/ml (10-20) 01/31/25 05:38 Blood Type B Positive 01/29/25 08:11 Antibody Screen NEGATIVE 01/29/25 08:11 Crossmatch See Detail 01/29/25 08:11 Impressions Venous Doppler Study 01/28/25 13:54 Technique: Venous ultrasound evaluation was performed utilizing grayscale, color Doppler and wave form evaluation. Images were also obtained with and without compression Findings: The bilateral common femoral, superficial femoral, popliteal, and visualized calf veins demonstrate normal anechoic lumens with full compressibility. Normal flow is seen on color Doppler images. Expected waveforms were produced with augmentation maneuvers There are small bilateral inguinal lymph nodes, likely benign Impression: No evidence of deep venous thrombosis Electronically signed by Alexis High 01-28-2025 4:58 PM Chest X-Ray 01/28/25 13:56 Chest x-ray, 2 views History: Chest pain. Comparison: January 25, 2025 CT chest correlate. Study report not available at the time of dictation. Findings: Lung volume slightly decreased. Bronchovascular crowding. Nonspecific prominent mild diffuse bilateral increased interstitial markings. Lungs are otherwise clear. No acute pleural disease. Pulmonary vasculature is prominent. No sergio edema. Cardiomediastinal silhouette is within normal limits. Impression: Nonspecific mild diffuse increased bilateral interstitial markings. This unlikely represents pulmonary vascular congestion although this cannot be excluded. Interstitial inflammatory or infectious pneumonitis not excluded. Consider follow-up exam after therapy. Electronically signed by Chau Chinchilla 01-28-2025 5:07 PM Abdomen/Pelvis CT 01/28/25 14:00 CT SCAN OF THE ABDOMEN AND PELVIS WITH IV CONTRAST CLINICAL HISTORY: Generalized abdominal pain. Distention. COMPARISON STUDY: Abdominal CT dated 01/25/2025. TECHNIQUE: Following the IV administration of 94 cc of Optiray 320, CT scan of the abdomen and pelvis is performed from the lung bases to the proximal femora. Images are reviewed in the axial, sagittal, and coronal planes. IV contrast was administered without complication. A dose lowering technique was utilized adhering to the principles of ALARA. CT DOSE: 609.2 mGy.cm FINDINGS: Lung bases: The heart is mildly enlarged and without pericardial effusion. The coronary arteries are densely calcified. The lung bases are clear noting bibasilar atelectasis. Liver: The contrast-enhanced liver is normal in size, contour, and attenuation. There is mild to moderate intrahepatic biliary ductal dilatation. The hepatic veins and portal veins are patent. Gallbladder: Surgically absent noting clips in the gallbladder fossa. Spleen: The spleen is markedly enlarged, measuring 21.5 cm in length. Pancreas: Moderately atrophic and grossly unremarkable. Adrenal glands: Unremarkable. Kidneys: The contrast enhanced kidneys are normal in size and without hydronephrosis. The kidneys enhance symmetrically. Abdominal vasculature: The abdominal aorta is normal in course and caliber noting mild to moderate atherosclerotic calcification. Bowel: There is no bowel obstruction. Residual enteric contrast is seen throughout the colon. There is moderate to severe constipation. A portion of the normal appendix is seen in the right lower quadrant on image #221. Peritoneum: There is trace perisplenic ascites. No intraperitoneal free air is seen. Lymphadenopathy: There is bulky lymphadenopathy seen throughout the abdomen and pelvis comment is not appreciably changed from 01/25/2025. An aortocaval node on image #118 measures approximate 6 x 3.5 cm. A left periaortic node image #145 measures 2.5 x 2.1 cm, and a right external iliac chain node on image #283 measures 4.5 x 2.6 cm. There is confluent soft tissue thickening seen throughout the iliac chain bilaterally and in the presacral space. Pelvic viscera: The bladder is normal as visualized. The uterus is surgically absent. No adnexal lesion is seen. Skeletal structures: The skeletal structures are heterogeneously osteopenic. Degenerative change and scoliosis is noted in the lumbar spine. No lytic or blastic lesions are seen. Soft tissues: There is body wall edema. IMPRESSION: 1. Moderate to severe constipation. 2. There is bulky lymphadenopathy throughout the abdomen and pelvis with marked splenomegaly consistent with the known history of a lymphoproliferative disorder. This has not appreciably changed from 01/25/2025. 3. Diffuse soft tissue thickening is seen throughout the iliac chain bilaterally and in the presacral/perirectal space. This is likely related to the lymphoproliferative process. A superimposed proctitis would be impossible to exclude and clinical correlation will be essential. 4. Cardiomegaly noting coronary artery atherosclerosis. 5. Additional findings as above. ACT 112: Negative or not required by law. Electronically signed by: Abraham Cornejo M.D. 01/28/2025 4:21 PM Aorta w/Runoff CTA 01/29/25 09:03 Clinical history: Pain Technique: Axial computed tomography images were obtained of the abdomen, pelvis, lower extremities after the administration of intravenous contrast according to the CT angiogram protocol. Oral contrast was given No prior examination is available for comparison Findings: The abdominal aorta appears unremarkable with no sign of aneurysm or dissection. No stenosis is seen involving it. The celiac axis and superior mesenteric artery are not visualized. The visualized renal arteries appear unremarkable. The right common iliac, external iliac, and internal iliac arteries appear unremarkable. No stenosis is seen of the right common femoral artery. The right profunda femoral artery is patent. There is no significant stenosis of the right superior femoral or popliteal arteries. The right anterior tibial and peroneal arteries are patent. The right posterior tibial artery appears occluded proximally The left common iliac, external iliac, and internal iliac arteries appear unremarkable. No stenosis is seen of the left common femoral artery. The left profunda femoral artery is patent. There is no significant stenosis of the left superior femoral or popliteal arteries. The left anterior tibial and peroneal arteries appear normal. The distal left posterior tibial artery is diminutive, which may be on a congenital basis Only the lower portion of the liver is visualized. The visualized liver is overall of normal size, attenuation, and contour with no sign of cirrhosis or significant fatty infiltration. No liver mass lesion is seen. The portal vein is patent. The gallbladder is not visualized. No bile duct dilatation is noted. The spleen is enlarged measuring 20 cm. No focal splenic lesion is evident. The pancreas appears normal with no sign of acute or chronic pancreatitis and no mass lesion noted. The pancreatic duct is of normal caliber. The adrenal glands appear unremarkable. The upper kidneys are not visualized. There is no hydronephrosis or perinephric stranding. No renal mass lesion is identified. There is confluent retroperitoneal adenopathy, measuring up to 6.8 x 3.4 cm. There is no sign of small bowel obstruction. There is constipation. There is apparent wall thickening of the sigmoid colon and rectum. No free intraperitoneal fluid or air is identified. There is bilateral iliac chain adenopathy, measuring up to 3.7 cm. No bladder mass lesion is evident. No fracture is identified. No focal osseous lesion is seen. There is severe left knee osteoarthritis. There is grade 1 anterolisthesis at L4-5. There is lumbar scoliosis and degenerative disc disease. There are bilateral calcaneal spurs Impression: 1. Bulky abdominal and pelvic adenopathy, consistent with metastatic disease or lymphoma 2. Apparent wall thickening of the traversing right colon and rectum. While this could be due to inflammatory bowel disease or infectious colitis,: Carcinoma is also possible 3. Severe splenomegaly 4. Normal-appearing abdominal aorta 5. No definite stenosis of the pelvic or proximal bilateral leg arteries 6. 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 There are findings on this exam that require communication between the performing entity and the patient following Patient Test Result Information Act ([place] ACT 112) guidelines. Electronically signed by Alexis High 01-29-2025 10:14 AM KUB X-Ray 02/04/25 10:11 KUB HISTORY: n/v, r/o SBO COMPARISON STUDY: CT of 01/28/2025 FINDINGS: Stable right upper quadrant surgical clips. There is moderate retained stool. No bowel obstruction seen. No gross free air. Grossly stable prominent splenomegaly. IMPRESSION: No acute findings seen. ACT 112: Negative or not required by law. The above report was generated using voice recognition software. It may contain grammatical, syntax or spelling errors. Electronically signed by: Vish Shelley M.D. 02/04/2025 4:02 PM Medications Administered Current Inpatient Medications Acetaminophen/Butalbital/Caffeine (Butalbital/Acetamin/Caffeine Tab) 1 tab PO TID PRN PRN Reason: TENSION HEADACHES Stop: 02/27/25 22:11 Last Admin: 02/01/25 14:26 Dose: 1 tab Acyclovir (Acyclovir 400 Mg Tab) 400 mg PO TID [facility] Stop: 02/27/25 22:11 Last Admin: 02/04/25 15:14 Dose: Not Given Artificial Tears (Artificial Tears) 1 drops OP PRN PRN PRN Reason: Dry Eyes Stop: 02/27/25 22:43 Cetirizine HCl (Cetirizine Hcl 10 Mg Tablet) 10 mg PO QAM [facility] Stop: 02/28/25 08:59 Last Admin: 02/04/25 11:01 Dose: Not Given Cyclobenzaprine HCl (Cyclobenzaprine Hcl 10 Mg Tab) 10 mg PO TID [facility] Stop: 02/27/25 22:11 Last Admin: 02/04/25 14:16 Dose: 10 mg Famotidine (Famotidine 20 Mg Tab) 20 mg PO BID PRN PRN Reason: Heartburn Stop: 02/27/25 22:11 Last Admin: 02/01/25 02:43 Dose: 20 mg Fluticasone Propionate (Fluticasone Propionate Na Spr 16 Gm Btl) 2 sprays NA DAILY [facility] Stop: 02/28/25 08:59 Last Admin: 02/04/25 11:01 Dose: Not Given Guaifenesin (Guaifenesin 600 Mg Tabcr) 1,200 mg PO Q12 [facility] Stop: 02/27/25 20:59 Last Admin: 02/04/25 11:01 Dose: Not Given Hydromorphone HCl (Hydromorphone Inj 0.5 Mg/0.5 Ml Syr) 0.25 mg IV Q6H PRN PRN Reason: Pain 1-5 Stop: 02/16/25 19:22 Last Admin: 02/03/25 15:55 Dose: 0.25 mg Hydromorphone HCl (Hydromorphone Inj 0.5 Mg/0.5 Ml Syr) 0.5 mg IV Q6H PRN PRN Reason: Pain 6-10 Stop: 02/05/25 08:30 Last Admin: 02/04/25 16:02 Dose: 0.5 mg Piperacillin Sod/Tazobactam Sod (Zosyn) 4.5 gm in 100 mls @ 25 mls/hr IV Q8H [facility]; Protocol Stop: 02/05/25 01:59 Last Infusion: 02/04/25 15:44 Dose: Infused Ketorolac Tromethamine (Ketorolac 0.5% Op Soln 5 Ml Btl) 1 drops OPB TID [facility] Stop: 02/27/25 22:11 Last Admin: 02/04/25 14:17 Dose: 1 drops Ketorolac Tromethamine (Ketorolac Tromethamine 10 Mg Tablet) 10 mg PO TID [facility] Stop: 02/05/25 09:01 Last Admin: 02/04/25 14:17 Dose: 10 mg Levothyroxine Sodium (Levothyroxine Sodium 175 Mcg Tablet) 175 mcg PO DAILYBB [facility] Stop: 02/28/25 06:29 Last Admin: 02/04/25 05:42 Dose: 175 mcg Loperamide HCl (Loperamide Hcl 2 Mg Cap) 2 mg PO Q6H PRN PRN Reason: Diarrhea Stop: 02/27/25 22:11 Meclizine HCl (Meclizine Hcl 25 Mg Tab) 25 mg PO QID [facility] [facility] Stop: 02/27/25 22:11 Last Admin: 02/04/25 13:50 Dose: 25 mg Metoclopramide HCl (Metoclopramide Hcl Inj 5 Mg/Ml 2 Ml Vial) 10 mg IV Q6H PRN; Protocol PRN Reason: Nausea Stop: 02/08/25 14:48 Last Admin: 02/04/25 09:15 Dose: 10 mg Metoprolol Succinate (Metoprolol Succ 50mg Ext Rel Tab) 150 mg PO QAM [facility] Stop: 02/28/25 08:59 Last Admin: 02/04/25 11:02 Dose: Not Given Metoprolol Tartrate (Metoprolol Tartrate 50 Mg Tab) 50 mg PO TID PRN PRN Reason: tachycardia Stop: 02/27/25 22:11 Miscellaneous (Olopatadine 0.1%: Order Awaiting Action) 1 each N/A QS [facility] Stop: 02/28/25 07:59 Last Admin: 02/04/25 15:55 Dose: Not Given Morphine Sulfate (Morphine Sulfate Cr 15 Mg Tabcr) 30 mg PO BID [facility] Stop: 02/11/25 22:11 Last Admin: 02/04/25 11:02 Dose: Not Given Multi-Ingredient Mouthwash/Gargle (First - Mouthwash Blm 5 Ml Udp) 5 ml PO Q6H PRN PRN Reason: MOUTH SORE FROM CHEMO Stop: 02/27/25 23:21 Nabumetone (Nabumetone 500 Mg Tablet) 750 mg PO BID [facility] Stop: 02/26/25 23:59 Ofloxacin (Ofloxacin 0.3% 75 Drops/5 Ml Btl) 1 drops OPB TID [facility] Stop: 02/07/25 22:11 Last Admin: 02/04/25 14:17 Dose: 1 drops Ondansetron HCl (Ondansetron Inj 2 Mg/Ml 2 Ml Vial) 4 mg IV Q6H PRN PRN Reason: Nausea Stop: 02/27/25 20:40 Last Admin: 02/03/25 21:43 Dose: 4 mg Ondansetron HCl (Ondansetron 4 Mg Od Tab) 8 mg PO TID PRN PRN Reason: NAUSEA/VOMITING Stop: 02/27/25 22:45 Last Admin: 01/31/25 22:07 Dose: 8 mg Oxycodone HCl (Oxycodone Hcl Ir 5 Mg Tab (Immediate Release)) 20 mg PO TID PRN PRN Reason: pain Stop: 02/11/25 22:11 Last Admin: 02/04/25 11:48 Dose: 20 mg Oxymetazoline HCl (Oxymetazoline 0.05% 30 Ml Btl) 2 sprays NA Q4H PRN PRN Reason: Congestion Stop: 02/27/25 22:11 Pantoprazole Sodium (Pantoprazole 40 Mg Tab) 40 mg PO BID [facility] Stop: 02/27/25 22:11 Last Admin: 02/04/25 11:02 Dose: Not Given Pilocarpine HCl (Pilocarpine Hcl 5 Mg Tablet) 5 mg PO QID [facility] Stop: 02/27/25 22:11 Last Admin: 02/04/25 13:50 Dose: 5 mg Polyethylene Glycol (Polyethylene (Miralax) 17 Gm Pack) 17 gm PO BID [facility] Stop: 03/04/25 20:59 Last Admin: 02/04/25 11:02 Dose: Not Given Potassium Chloride (Potassium Chloride 10 Meq Caper) 20 meq PO BID [facility] Stop: 02/27/25 21:29 Last Admin: 02/04/25 11:02 Dose: Not Given Promethazine HCl (Promethazine Hcl 25 Mg Tab) 25 mg PO Q4H PRN PRN Reason: nausea and vomiting Stop: 02/27/25 22:11 Pseudoephedrine HCl (Pseudoephedrine Hcl 30 Mg Tab) 30 mg PO DAILY PRN PRN Reason: Congestion Stop: 02/27/25 22:11 Last Admin: 02/02/25 21:47 Dose: 30 mg Silver Sulfadiazine (Silver Sulfadiazine 1% Cr 50 Gm Jar/Tube) 1 appln TOP BID PRN PRN Reason: wound healing Stop: 02/27/25 22:11 Last Admin: 01/29/25 21:52 Dose: 1 appln Sumatriptan Succinate (Sumatriptan Succinate 100 Mg Tab) 100 mg PO DAILY PRN PRN Reason: migraine headache Stop: 02/27/25 22:11 Timolol Maleate (Timolol Maleate 0.5% Op Soln 5 Ml Btl) 1 drops OP BID [facility] Stop: 02/27/25 22:11 Last Admin: 02/04/25 11:02 Dose: Not Given Vancomycin HCl (Vancomycin Hcl 250 Mg Cap) 250 mg PO Q6 [facility] Stop: 02/14/25 16:34 Zanubrutinib (Zanubrutinib 80 Mg Cap) 160 mg PO BID [facility] Stop: 02/27/25 20:59 Last Admin: 02/04/25 11:03 Dose: Not Given Zolpidem Tartrate (Zolpidem Tartrate 5 Mg Tab) 10 mg PO HS PRN PRN Reason: Sleep Stop: 02/27/25 22:11 PG Care Time/CCT Total # of Minutes Spent Total Time Spent with Patient: Total time spent is greater than 50% in coordination of care (as documented) at patient's floor/unit and/or counseling patient: Coding Level of Care Code 67407 SUB INP/OBS CARE 05/01MIN Diagnoses Cellulitis, leg L03.119 Gastric mass K31.89 Time Spent (min) 25
[2025-02-04] MEDS ORDERED: VANCOMYCIN HCL 250 MG CAP PO SCH (16:35)
[2025-02-05] MEDS: PIPERACILLIN/TAZOBACTAM 4.5 GM/100 ML BAG IV SCH (03:07)
[2025-02-05 09:11] LABS: Alanine Aminotransferase 11.0 U/L (7-52); Albumin Globulin Ratio 3.0 (0.9-2); Albumin Level 3.6 gm/dl (3.4-5.0); Alkaline Phosphatase 98.0 U/L (34-104); Anion Gap 5.0 (3-11); Bilirubin,Total 0.9 mg/dl (0.2-1.0); Blood Urea Nitrogen 17.0 mg/dl (6-23); Calcium 8.1 mg/dl (8.6-10.3); Carbon Dioxide 30.0 mmol/L (21-32); Chloride 98.0 mmol/L (98-107); Creatinine Clr Calc Pharmacy 49.2 ml/min; Globulin 1.2 gm/dl (2.5-4.0); Glucose 124.0 mg/dl (70-99(Fasting)); Potassium 3.3 mmol/L (3.5-5.1); Sodium 133.0 mmol/L (136-145); Total Protein 4.8 gm/dl (6.0-8.3)
[2025-02-05 09:15] LABS: Hematocrit (blood only) 33.7 % (37.0-47.0); Hemoglobin 8.2 g/dl (12.0-16.0); Mean Corpuscular Hemoglobin 22.1 pg (25.0-34.0); Mean Corpuscular Volume 90.8 fL (80.0-100.0); Red Blood Count 3.71 M/uL (4.20-5.40); White Blood Count 415.38 K/ul (4.8-10.8)
[2025-02-05 09:45] LABS: Platelet Count 66 K/uL (130-400)
[2025-02-05 10:29] LABS: Immature Granulocytes # (auto) 0.45 K/uL (0.01-0.20); Immature Granulocytes % (auto) 0.1 %; Polychromasia 1+; Smudge Cells Present
--- NOTE | 2025-02-05 15:48 | Hospitalist Progress Note ---
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 The lesions on her R leg then enlarged, and became red, hot, and warm to the touch. She also has worsened BLE edema, and the lesions on her lower extremities began to drain fluid. # lower extremity scans cough tissue infection / rash on trunk arms legs - continue pip-tazo and vancomycin. ID consulted 02/04 - potentially folliculitis, no cultures were taken while actively draining so left on current ABX. Can be discharged on linezolid and levofloxacin for 14d course. If persistent/worsening skin lesions, recommend cultures of drainage and skin biopsy with bacterial/fungal/AFB cultures and stains if pathology specimen. Outpatient derm follow up if nonresolving on antibiotics. Note she has sufa and doxycycline allergies. 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 On ACY ppx already. ordered dose of metolazone 2.5 mg in a.m. followed by torsemide 30 mg for edema # vomiting and diarrhea - C. diff test ordered but no BM since last night so less likely C. diff. more likely related to antibiotic, laxatives possibly re solved # Recurrent sinusitis she's on afrin oxymetazoline and pseudoephedrine, abx as above # SVT, possibe distant episodes of PAF - continue metoprolol -microvascular disease with chronic angina - PRN nitro spray # GERD - cont bid PPI and pepcid PRN # CLL causing anemia and thrombocytopenia - Hg and platelets are at baseline - on brukinsa - lumbar lesion - intraluminal stomach lesion - has been f/b Dr. Soto, planned for EGD/EUS. also possible proctitis this admission. seen by GI 02/02 - follow up with Dr. Soto, planned for colonoscopy. Needing clearance for lumbar lesion - follow up with Dr. Nuñez # hyponatremia - Na 133 better than baseline # chronic hypokalemia - 3.3 today, add extra dose of po KCl -continue KCl capsules 20 bid -she has had pseudohyperkalemia and potassium level must be drawn in non- heparinized tube - ordered this way, comment to lab # hypothyroidism, hx papillary thyroid carcinoma - cont levothyroxine # cancer related pain, chronic back pain from , opioid dependence -continue morphine CR 30 bid -cont nabumetone and cyclobenzaprine Acyclovir for prophylaxis Continue her usual Sjogren's meds which includes multiple eye drops and pilocarpine DVT ppx - enoxaparin. history of DVT/PE Admission and Anticipated Discharge Date Admission Date: January 28, 2025 Subjective it does not seem like there are any new lesions, many are crusted some of the crusted ones have had some bleeding especially left medial ankle. No lesions are currently pustular or vesicular minimal surrounding erythema of lower leg lesions. It seems that her leg edema has improved significantly since she got here. Difficult to get from her history but it also seems like the bilateral lower extremity weeping and amado erythema/inflammation has improved as well. she is having a burning sensation both lower extremities from mid calf down to her feet this is new no further nausea vomiting or diarrhea since yesterday evening, no abdominal pain Physical Exam Physical Exam: Last 24h vitals reviewed GEN: no acute distress, sitting on the edge of the bed with a clear liquid diet tray HEENT: pupils equal, sclerae anicteric, moist MM. disconjugate which is chronic RESP: normal WOB, CTAB CV: reg no mrg ABD: soft/nt/nd +BT : no keenan SKIN: warm and dry, there are small skin lesions many of them crusted scattered throughout on both upper extremities and shoulders worse on the right upper extremity both sides of her back right leg worse than left leg and then on bilateral ankles and somewhat on the feet left medial ankle has a few larger lesions which are crusted with eschar not currently draining she says they were bleeding earlier today there is minimal surrounding erythema she has MICHAELS 1+ bilateral lower extremity edema especially the ankles NEURO: AOx person, place, and situation. Face symmetric, speech normal, moves 4 ext spontaneously and equally Results & Data Results & Data Vital Signs (Past 12 Hours) Vital Signs Temp Pulse Pulse Resp BP Pulse Ox O2 Del Method 02/05/25 14:52 69 02/05/25 10:54 36.4 C L 70 19 114/53 L 93 Room Air 02/05/25 08:00 74 02/05/25 07:12 36.5 C 76 18 118/57 L 95 Room Air Laboratory Results white blood count 415, hemoglobin 82, platelets 66 Sodium 133, potassium 3.3, BUN 17 and creatinine 0.85 albumin is 3.6 PG Care Time/CCT Total # of Minutes Spent Total Time Spent with Patient: Total time spent is greater than 50% in coordination of care (as documented) at patient's floor/unit and/or counseling patient: Coding Level of Care Code 29820 SUB INP/OBS CARE 3/50MIN Diagnoses Cellulitis, leg L03.119 Gastric mass K31.89
[2025-02-05] MEDS ORDERED: VANCOMYCIN CONSULT ACTIVE PRN (16:16)
[2025-02-05] MEDS ORDERED: POTASSIUM CHLORIDE CRTAB 20 MEQ TABCR PO ONE (17:15)
[2025-02-05] MEDS: VANCOMYCIN HCL 1,250 MG in SODIUM CHLORIDE 0.9% 250 ML IV ONE (17:26)
[2025-02-05] MEDS: POTASSIUM CHLORIDE 10 MEQ PO ONE (18:20)
[2025-02-06] MEDS: VANCOMYCIN HCL 1,250 MG in SODIUM CHLORIDE 0.9% 250 ML IV SCH (06:12)
[2025-02-06 07:48] LABS: Hematocrit (blood only) 29.5 % (37.0-47.0); Hemoglobin 7.3 g/dl (12.0-16.0); Mean Corpuscular Hemoglobin 22.8 pg (25.0-34.0); Mean Corpuscular Volume 92.2 fL (80.0-100.0); Platelet Count 61 K/uL (130-400); Red Blood Count 3.20 M/uL (4.20-5.40); White Blood Count 341.35 K/ul (4.8-10.8)
[2025-02-06] MEDS: NABUMETONE 500 MG TABLET PO SCH (08:06)
[2025-02-06 08:13] LABS: Anisocytosis Present; Immature Granulocytes # (auto) 0.27 K/uL (0.01-0.20); Immature Granulocytes % (auto) 0.1 %; Smudge Cells Present
[2025-02-06] MEDS ORDERED: SODIUM CHLORIDE 0.9% 100 ML IV PRN (08:20)
[2025-02-06] MEDS: POTASSIUM CHLORIDE 10 MEQ PO SCH (09:04)
[2025-02-06] MEDS: TORSEMIDE 10 MG TAB PO ONE (10:53)
--- NOTE | 2025-02-06 13:07 | Pharmacy Report ---
Pharmacy PK ABX Note - Date of Service February 06, 2025 - Assessment and Plan Assessment * 69 year old F receiving pip/tazo and vancomycin for treatment of cellulitis. Pip/tazo started 01/28. Vanco administered 01/28-02/01 and resumed 02/05. * ID consulted * History of CLL, immunocompromised at baseline. Plan Vancomycin * Resume prior regimen of 1250 mg IV q24h * Target AUC/ALLA of 400-600 mg/L.hr * Random level ordered for 113 AM Pharmacy will continue to follow and will adjust dose/frequency as necessary. Thank you. Pharmacy has transitioned to AUC monitoring for vancomycin. AUC/ALLA is the preferred PK/PD target and is associated with decreased risk of nephrotoxicity compared to traditional trough targets.
[2025-02-06 16:49] LABS: Hematocrit (blood only) 35.0 % (37.0-47.0); Hemoglobin 8.8 g/dl (12.0-16.0); Mean Corpuscular Hemoglobin 25.0 pg (25.0-34.0); Mean Corpuscular Volume 92.1 fL (80.0-100.0); Platelet Count 75 K/uL (130-400); Red Blood Count 3.80 M/uL (4.20-5.40); White Blood Count 479.30 K/ul (4.8-10.8)
--- NOTE | 2025-02-06 17:10 | Hospitalist Progress Note ---
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 The lesions on her R leg then enlarged, and became red, hot, and warm to the touch. She also has worsened BLE edema, and the lesions on her lower extremities began to drain fluid. # lower extremity SSTI infection / rash on trunk arms legs - continue pip-tazo and vancomycin. ID consulted 02/04 - potentially folliculitis, no cultures were taken while actively draining so left on current ABX. Can be discharged on linezolid and levofloxacin for 14d course. If persistent/worsening skin lesions, recommend cultures of drainage and skin biopsy with bacterial/fungal/AFB cultures and stains if pathology specimen. Outpatient derm follow up if nonresolving on antibiotics. Note she has sufa and doxycycline allergies. 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 On ACY ppx already. she points out to extremely tiny new lesions that are basically 2 mm eschars are not raised or indurated and there is no drainage, biopsying these today would be low yield will observe them to see if they develop into something more concerning. Vasculitis is on the differential diagnosis, vasculitic lesions on her lower extremities could have become superinfected ordered dose of metolazone 2.5 mg followed by torsemide 30 mg for edema give extra potassium replacement, recheck BMP this afternoon for electrolytes # CLL causing anemia and thrombocytopenia, transfusion dependent for almost the past year - hemoglobin 7.3 this morning transfused 1 unit and hemoglobin was 8.8 on recheck hold off on further transfusion right now. Platelets are stable - on brukinsa - lumbar lesion in the process of being worked up outpatient - intraluminal stomach lesion - has been f/b Dr. Soto, planned for EGD/EUS. also possible proctitis this admission. seen by GI 02/02 - follow up with Dr. Soto, planned for colonoscopy. Needing clearance for lumbar lesion - follow up with Dr. Nuñez # likely related to antibiotic, laxatives seems to be resolved # Recurrent sinusitis she's on afrin oxymetazoline and pseudoephedrine, abx as above she has not noted any benefit of being on the broad-spectrum IV antibiotics with respect to her nasal symptoms so acute bacterial sinusitis seems unlikely # SVT, possible distant episodes of PAF - continue metoprolol # CAD-microvascular disease with chronic angina - PRN nitro spray # GERD - cont bid PPI and pepcid PRN # hyponatremia - Na 133 better than baseline. since I last saw her when severely hyponatremic she has added some salt back to her diet. # chronic hypokalemia - Repeat BMP pending -she has had pseudohyperkalemia and potassium level must be drawn in non- heparinized tube - ordered this way, comment to lab # hypothyroidism, hx papillary thyroid carcinoma - cont levothyroxine # cancer related pain of her abdomen related to splenomegaly and lymphadenopathy, chronic back pain from , opioid dependence -continue morphine CR 30 bid -cont nabumetone and cyclobenzaprine Acyclovir for prophylaxis Continue her usual Sjogren's meds which includes multiple eye drops and piloca rpine DVT ppx - history of DVT/PE. SCDs. Enoxaparin held she has been developing some small spontaneous hematomas on her extremities as well as bleeding from her leg wounds. high risk of hemorrhage because of combination of Brukinsa and thrombocytopenia Admission and Anticipated Discharge Date Admission Date: January 28, 2025 Selene Ortiz has not had any diarrhea in the last 24 hours and is able to eat regular food without vomiting. She still feels tenderness in her abdomen when touched lightly, which is a new symptom for her. She has a history of chronic abdominal pain because of her large spleen and swollen lymph nodes. She noticed two new skin lesions on the front of her left shoulder and upper arm. They look like small scratches, are crusted, not raised, and there is no drainage. The swelling in her legs has gotten better but is still present at a mild level. She has multiple lesions on both legs, with the largest ones on her left leg. One lesion is on the lower front part of her amado, and there are two crusted lesions that were bleeding yesterday and are now covered with bandages. There is no redness around them. Another larger lesion is on her left inner ankle, which also has no redness or drainage and is covered by a thick, crusty scab. Physical Exam Physical Exam: General Appearance: Normal. Vital signs: Reviewed past 24h vital signs in EMR, unremarkable. HEENT: Within normal limits. Respiratory: Lungs clear bilaterally. Cardiovascular: Regular heart rhythm, no murmur. Gastrointestinal: Soft, nondistended, tender to light touch, especially on the left. Bowel sounds present. Extremities: Leg edema at 1+. Skin: Two new lesions on left anterior shoulder, resembling tiny scratches. The swelling in her legs has gotten better but is still present at a mild level. She has multiple lesions on both legs, with the largest ones on her left leg. One lesion is on the lower front part of her amado, and there are two crusted lesions that were bleeding yesterday and are now covered with bandages. There is no redness around them. Another larger lesion is on her left inner ankle, which also has no redness or drainage and is covered by a thick, crusty scab. she has some raised nodules on her lateral upper extremities and right lateral calf that are consistent with small hematomas these are new in the past 48 hours Neurological: AOx4, normal speech and mentation, gan x 4. Psychiatric: Normal. Results & Data Results & Data Vital Signs (Past 12 Hours) Vital Signs Temp Pulse Pulse Resp BP BP Pulse Ox 02/06/25 15:26 36.6 C 72 18 108/63 98 02/06/25 15:17 74 02/06/25 14:39 36.8 C 72 17 102/60 96 02/06/25 14:22 36.7 C 73 17 110/60 95 02/06/25 13:22 37.0 C 79 19 110/61 97 02/06/25 12:22 36.9 C 79 19 115/66 96 02/06/25 11:52 36.9 C 70 17 118/64 95 02/06/25 11:37 36.9 C 74 17 131/75 95 02/06/25 11:22 36.8 C 73 18 116/65 96 02/06/25 11:20 36.8 C 73 18 116/65 96 02/06/25 07:38 36.6 C 69 18 115/61 94 02/06/25 07:00 78 O2 Del Method 02/06/25 15:26 Room Air 02/06/25 15:17 02/06/25 14:39 02/06/25 14:22 02/06/25 13:22 02/06/25 12:22 02/06/25 11:52 02/06/25 11:37 02/06/25 11:22 02/06/25 11:20 Room Air 02/06/25 07:38 Room Air 02/06/25 07:00 Laboratory Results - Labs: - Hemoglobin (02/06/2025): 7.3 - White count (02/06/2025): 341 - Platelets (02/06/2025): 61 PG Care Time/CCT Total # of Minutes Spent Total Time Spent with Patient: Total time spent is greater than 50% in coordination of care (as documented) at patient's floor/unit and/or counseling patient: Coding Level of Care Code 21283 SUB INP/OBS CARE 3/50MIN Diagnoses Cellulitis, leg L03.119 Gastric mass K31.89
--- NOTE | 2025-02-06 17:14 | Communication Note ---
Date of Service: February 06, 2025 Photo of two small new lesions L shoulder
[2025-02-06 17:28] LABS: Anion Gap 5.0 (3-11); Blood Urea Nitrogen 16.0 mg/dl (6-23); Calcium 8.1 mg/dl (8.6-10.3); Carbon Dioxide 29.0 mmol/L (21-32); Chloride 99.0 mmol/L (98-107); Creatinine Clr Calc Pharmacy 41.6 ml/min; Glucose 97.0 mg/dl (70-99(Fasting)); Magnesium 2.2 mg/dl (1.7-2.4); Potassium 4.4 mmol/L (3.5-5.1); Sodium 133.0 mmol/L (136-145)
[2025-02-06] MEDS ORDERED: HYDROmorphone INJ 0.5 MG/0.5 ML SYR IV PRN (17:47)
[2025-02-06] MEDS: HYDROmorphone INJ 0.5 MG/0.5 ML SYR IV PRN (21:44)
[2025-02-07 06:41] LABS: Hematocrit (blood only) 34.1 % (37.0-47.0); Hemoglobin 8.0 g/dl (12.0-16.0); Mean Corpuscular Hemoglobin 21.4 pg (25.0-34.0); Mean Corpuscular Volume 91.2 fL (80.0-100.0); Platelet Count 69 K/uL (130-400); Red Blood Count 3.74 M/uL (4.20-5.40); White Blood Count 410.52 K/ul (4.8-10.8)
[2025-02-07 07:29] LABS: Anion Gap 6.0 (3-11); Blood Urea Nitrogen 18.0 mg/dl (6-23); Calcium 8.4 mg/dl (8.6-10.3); Carbon Dioxide 31.0 mmol/L (21-32); Chloride 95.0 mmol/L (98-107); Creatinine Clr Calc Pharmacy 37.5 ml/min; Glucose 95.0 mg/dl (70-99(Fasting)); Magnesium 2.1 mg/dl (1.7-2.4); Potassium 4.4 mmol/L (3.5-5.1); Sodium 132.0 mmol/L (136-145)
[2025-02-07] MEDS: VANCOMYCIN LEVEL ONE (10:38)
--- NOTE | 2025-02-07 13:41 | Pharmacy Report ---
Pharmacy PK ABX Note - Date of Service February 07, 2025 - Assessment and Plan Assessment 02/07: * Vancomycin level drawn this morning was 9.4mg/dL which extrapolates to an AUC in/slightly above the goal range. Will continue current maintenance dose for now, but will obtain another level in a few days to be sure that it is not supratherapeutic. * ID recommends continuing on vancomycin and Zosyn while impatient and if improving can transition to PO linezolid and levofloxacin to complete 14 day course. 02/06: * 69 year old F receiving pip/tazo and vancomycin for treatment of cellulitis. Pip/tazo started 01/28. Vanco administered 01/28-02/01 and resumed 02/05. * ID consulted * History of CLL, immunocompromised at baseline. Plan Vancomycin * Based on vancomycin level of 9.4mg/dL, extrapolated AUC at ss is 606mg/L.hr. * Continue maintenance dose of vancomycin 1250mg IV q 24 hours * Target AUC/ALLA of 400-600 mg/L.hr * Random level ordered for 02/09 AM Zosyn 4.5gm iv q 8 hours. Pharmacy will continue to follow and will adjust dose/frequency as necessary. Thank you. Pharmacy has transitioned to AUC monitoring for vancomycin. AUC/ALLA is the preferred PK/PD target and is associated with decreased risk of nephrotoxicity compared to traditional trough targets.
--- NOTE | 2025-02-07 16:35 | Hospitalist Progress Note ---
Date of Service February 07, 2025 Assessment & Plan (1) Cellulitis, leg: (2) Gastric mass: Plan Diana Pan is a 69 yo woman with hx of progressive CLL failed multiple regimens lymphedema, sinusitis, sjogren syndrome, , posterior scalp lymphoma lesion, PSVT, ankylosing spondylitis, GERD, hx of PE ~1 week [employer], the patient developed papules and what seemed to be pustules over her R leg, R shoulder, L shoulder, and down her back. The lesions on her R leg then enlarged, and became red, hot, and warm to the touch. She also has worsened BLE edema, and the lesions on her lower extremities began to drain fluid. # lower extremity SSTI infection / rash on trunk arms legs - continue pip-tazo and vancomycin. ID consulted 02/04 - potentially folliculitis, no cultures were taken while actively draining so left on current ABX. Can be discharged on linezolid and levofloxacin for 14d course. I do not see any new convincing lesions certainly not infectious ones If persistent/worsening skin lesions, recommend cultures of drainage and skin biopsy with bacterial/fungal/AFB cultures and stains if pathology specimen. Outpatient derm follow up if nonresolving on antibiotics. Note she has sufa and doxycycline allergies. 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 On ACY ppx already. regarding the 2 tiny lesions left anterior shoulder they are simply tiny less than 2 mm eschars or crusts there is no induration there is no vesicle or pustule they are not raised other than the eschar. Consider punch biopsy of 1 of these however I am not convinced that they are actually active lesions I think the yield would be low and I am concerned about causing bleeding she started to develop small hematomas on the extensor surfaces of all 4 limbs - these are related to minimal trauma in the setting of thrombocytopenia and Brukinsa which also affects platelet function. I think she is at significant risk of a major bleeding problem I did communicate this with her. Unfortunately the only course to mitigate this would be to stop the Brukinsa I did update Dr. Nuñez today. I mistakenly thought that Diana was already followed by palliative care. she is not. her oncologist is supportive of palliative care consultation. based on my extensive discussion with Diana and her at bedside today I do not think she is in the frame of mind for that right now and I did not directly broach it. I queried who is handling her pain control. it is actually been managed recently by Dr. Driscoll who requests she transfer it to her new PCP Dr. Weiner. I consulted pain service today because of escalating cancer related pain despite increasing doses of opioids over her baseline. # CLL causing anemia and thrombocytopenia, transfusion dependent for almost the past year - transfusion trigger is Hg<8. Transfused 1u RBC 02/06 probably will need one more unit tomorrow. Stable thrombocytopenia. - on brukinsa - lumbar lesion in the process of being worked up outpatient - intraluminal stomach lesion - has been f/b Dr. Soto, planned for EGD/EUS. also possible proctitis this admission. seen by GI 02/02 - follow up with Dr. Soto, planned for colonoscopy. Needing clearance for lumbar lesion - follow up with Dr. Nuñez she also has an oncologist at [facility] who comanages # diarrhea - had resolved so thought laxative related. Now recurred. Abd pain and recurrence so check C. diff # Recurrent sinusitis she's on afrin oxymetazoline and pseudoephedrine, abx as above she has not noted any benefit of being on the broad-spectrum IV antibiotics with respect to her nasal symptoms so acute bacterial sinusitis seems unlikely # SVT, possible distant episodes of PAF - continue metoprolol # CAD-microvascular disease with chronic angina - PRN nitro spray # GERD - cont bid PPI and pepcid PRN # hyponatremia - Na 132 better than previous baseline. since I last saw her when severely hyponatremic she has added some salt back to her diet. # chronic hypokalemia - 4.4 today. on 20 bid KCl -she has had pseudohyperkalemia and potassium level must be drawn in non- heparinized tube - ordered this way, comment to lab # hypothyroidism, hx papillary thyroid carcinoma - cont levothyroxine # cancer related pain of her abdomen related to splenomegaly and lymphadenopathy, chronic back pain from , opioid dependence -continue morphine CR 30 bid, also had to increase IV hydromorphone from 0.25 --> 0.5 mg PRN yesterday -cont nabumetone and cyclobenzaprine -consult pain medicine Acyclovir for prophylaxis Continue her usual Sjogren's meds which includes multiple eye drops and pilocarpine DVT ppx - history of DVT/PE. SCDs. Enoxaparin held she has been developing some small spontaneous hematomas on her extremities as well as bleeding from her leg wounds. high risk of hemorrhage because of combination of Brukinsa and thrombocytopenia Admission and Anticipated Discharge Date Admission Date: January 28, 2025 Subjective she had more diarrhea overnight continues to have abdominal pain though it seems to be related to her splenomegaly abdominal lymphadenopathy, was present when she was not having diarrhea as well leg edema virtually resolved with elevation and extra diuretics yesterday no new skin lesions. the 2 tiny lesion she pointed out on left shoulder yesterday are similar, she feels that they are a little larger she has ecchymosis with small hematomas on her left lateral arm both lateral calves right lateral arm Physical Exam 2 Physical Exam: General Appearance: sitting in bed awake, pale, appears chronically ill Vital signs: Reviewed past 24h vital signs in EMR, unremarkable. HEENT: Within normal limits. Respiratory: normal work of breathing Cardiovascular: deferred Gastrointestinal: distended with massive splenomegaly Extremities: Leg edema only trace Skin: Two new lesions on left anterior shoulder, resembling tiny scratches. the inferior 1 is slightly larger less than a millimeter larger than yesterday they still just look like eschar with no induration or drainage. see photo in my communication note yesterday substantially unchanged multiple skin lesions on back shoulders arms and especially legs left greater than right some of these are appear to be resolving and her papules others are covered with an eschar/crust but do not appear acutely inflamed the largest lesions are in the left medial calf are few centimeters in size covered by dark thick eschar clearly improved compared to 2 days ago currently no drainage or bleeding she has ecchymosis with small hematomas on her left lateral arm both lateral calves right lateral arm. the small hematomas seem flatter and more superficial there is no overlying ecchymosis visible Neurological: AOx4, normal speech and mentation, gan x 4. Psychiatric: Normal. Results & Data Results & Data Vital Signs (Past 12 Hours) Vital Signs Temp Pulse Resp BP Pulse Ox O2 Del Method 02/07/25 15:19 36.3 C L 82 17 135/86 94 Room Air 02/07/25 11:43 36.4 C L 78 17 115/63 90 Room Air 02/07/25 11:13 Room Air 02/07/25 08:02 36.6 C 70 20 116/67 98 Room Air Laboratory Results white blood count 410, hemoglobin 8.0, platelets 69 sodium 132 potassium 4.4 creatinine 1 PG Care Time/CCT Total # of Minutes Spent Total Time Spent with Patient: I personally spent: 55 minutes today on clinical care activities including: reviewing chart notes and vital signs reviewing labs discussion with consultant technology(s), outpatient provider examining and counseling the patient counseling the patient's family writing orders documentation Coding Level of Care Code 44577 SUB INP/OBS CARE 3/50MIN Diagnoses Cellulitis, leg L03.119 Gastric mass K31.89
[2025-02-08 06:34] LABS: Hematocrit (blood only) 32.0 % (37.0-47.0); Hemoglobin 8.0 g/dl (12.0-16.0); Mean Corpuscular Hemoglobin 22.9 pg (25.0-34.0); Mean Corpuscular Volume 91.4 fL (80.0-100.0); Platelet Count 71 K/uL (130-400); Red Blood Count 3.50 M/uL (4.20-5.40); White Blood Count 360.96 K/ul (4.8-10.8)
[2025-02-08 06:48] LABS: Anion Gap 4.0 (3-11); Blood Urea Nitrogen 15.0 mg/dl (6-23); Calcium 8.2 mg/dl (8.6-10.3); Carbon Dioxide 31.0 mmol/L (21-32); Chloride 95.0 mmol/L (98-107); Creatinine Clr Calc Pharmacy 43.9 ml/min; Glucose 93.0 mg/dl (70-99(Fasting)); Magnesium 2.1 mg/dl (1.7-2.4); Potassium 4.2 mmol/L (3.5-5.1); Sodium 130.0 mmol/L (136-145)
[2025-02-08 07:12] VITALS: BP 112/60; RESP 18; TEMP 97.7; O2SAT 96
--- NOTE | 2025-02-08 08:30 | Pain Management Consultation ---
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 pneumoperitoneum. Marked splenomegaly redemonstrated. The spleen measures up to approximately 22 cm in length, previously 20 cm. No pneumatosis or pneumoperitoneum. Atrophic pancreas again noted. Cholecystectomy. Unremarkable adrenal glands. Intrahepatic and extrahepatic biliary ductal dilation is likely postsurgical. Patent portal vein. No suspicious liver lesions. There are a few subcentimeter scattered hypodense foci of the liver are similar to prior and too small to characterize. Unremarkable kidneys. No hydronephrosis. Urinary bladder wall thickening with partial distention. Atherosclerosis of the aorta without aneurysm. Pathologic lymphadenopathy of the abdomen and pelvis redemonstrated which includes bulky periportal/pericaval lymph nodes measuring up to 6.6 x 3.1 m image 127 series 12, previously 5.6 x 3.1 cm. Conglomerate periportal lymphadenopathy on image 109 measures 8.4 x 4.9 cm which is similar to prior. Bulky retroperitoneal lymphadenopathy includes right iliac chain lymph node on image 301 series 12 measuring 4.6 x 2.6 cm, previously 4.3 x 2.3 cm. Intraluminal polypoid lesion of the gastric body on image 101 measures 1.5 cm. Soft tissue attenuating foci within the perirectal tissues also appear to have increased in size. Small volume of abdominal pelvic ascites. Partial distention with wall thickening within the sigmoid. Moderate to extensive colonic fecal retention. No bowel obstruction. Progressive lymphadenopathy within the sigmoid mesocolon. Diffuse generalized body wall edema. No acute fracture. Diffuse heterogeneity of the osseous structures redemonstrated. IMPRESSION: 1. No acute intrathoracic, intra-abdominal or intrapelvic abnormality. 2. Pathologic lymphadenopathy of the chest, abdomen and pelvis redemonstrated in this patient with clinical history of CLL. Numerous lymph nodes in the right axilla and right supraclavicular distribution as well as within the abdomen and pelvis have increased in size from prior compatible with progressive disease. 3. Marked splenomegaly redemonstrated. 4. Indeterminate 1.5 cm intraluminal polypoid lesion of the gastric body. 5. Body wall edema with trace ascites. 6. Diffusely heterogeneous appearance of the osseous structures redemonstrated. 7. Additional findings as above. ACT 112: Negative or not required by law. Electronically signed by: Blade Sosa M.D. 01/25/2025 2:46 PM Dictated: 01/25/25 1426 Transcribed: 01/25/25 1426 Previous Records Review Previous Records: personally reviewed by me
[2025-02-08] MEDS ORDERED: VANCOMYCIN LEVEL ONE (09:30)
--- NOTE | 2025-02-08 13:26 | Electrocardiogram Report ---
Test Reason : Blood Pressure : */* mmHG Vent. Rate : 68 BPM Atrial Rate : 68 BPM P-R Int : 204 ms QRS Dur : 78 ms QT Int : 376 ms P-R-T Axes : 24 -10 1 degrees QTcB Int : 399 ms Normal sinus rhythm Nonspecific T wave abnormality Abnormal ECG When compared with ECG of 03-Feb-2025 15:01, Nonspecific T wave abnormality no longer evident in Anterolateral leads Confirmed by Carlos Gonzalez ([id number]) on 02/08/2025 1:25:53 PM Referred By: REFERRED SELF Confirmed By: Carlos Gonzalez
[2025-02-08 15:14] VITALS: PULSE 72
--- NOTE | 2025-02-08 18:34 | Discharge Summary ---
Discharge Summary Date of Service February 08, 2025 Principal Dx & Hospital Course #1 = Principal Diagnosis (1) Cellulitis, leg: RESOLVED with no exanthem noted on discharge date 02/08/2025. Instead, I noted the followin. Multiple (e.g., greater than 100 lesions) well-ealed/scabbed over follicles on bilateral shins, posterior upper arms bilaterally, and bilateral upper/mid/lower back. No erythema, edema, induration, warmth, tenderness, crepitus, fluctuance, discharge (sanguineous, serous, suppurative), malodor, ulceration, or lymphangitic streaking on discharge date 02/08/2025. 2. Solitary 1cm circular desquamative lesion (appearing as a healed scar) on dorsum of left hand in the interspace between the first and second metatarso- phalanges, with no erythema, edema, induration, warmth, tenderness, crepitus, fluctuance, discharge (sanguineous, serous, suppurative), malodor, ulceration, or lymphangitic streaking on discharge date 02/08/2025, and unchanged over the past several months, as per patient's report to me on discharge date 02/08/2025. Of note, patient reports that she has to see a woodwinds teacher on an outpatient basis to undergo biopsy of this lesion to rule out malignancy. In regards to the exam findings in #1 and #2 above, patient underwent formal Infectious Disease consult with Dr. Natalia Briscoe on 02/04/2025, 1:05pm, and who wrote: "Pt with diffuse skin rash of unclear etiology. Pt reported what sounds like seropurulent drainage coming from the lesions. She has been afebrile; WBC count in the 300s-400s d/t CLL. ID is consulted after the patient has received ~7 days of broad-spectrum abx, on which she reports improvement. The lesions have stopped draining and are starting to dry up. Concern that they may represent a bacterial infection such as folliculitis (which can be caused by MRSA and PsA); no wound Cx were taken when the lesions were actively draining. Pt is already on acyclovir ppx d/t her CLL. She does have some degree of relative immunocompromise from her CLL (though no sergio neutropenia on diff) and BTK inhibitor use. BTKis can also be associated with fungal infections less commonly, though would not expect a fungal infection to have improved on abx. BCx have remained NGTD. Overall, given potential improvement on abx, would continue vancomycin and pip- tazo while inpatient. If improving and discharging, can change to linezolid and levofloxacin to complete a 14d course for SSTI. Note pt with abx allergies including doxy and sulfa. QTc 395 on 02/03. persistent/worsening skin lesions, agree with follow-up with outpatient dermatology. If obtaining skin Bx, recommend to send for cultures (bacterial/fungal/AFB) and to add fungal and AFB staining onto pathology. If recurrence of lesions in the future, and wounds become actively draining with purulent fluid again, then would obtain cultures (bacterial/fungal/AFB)." Patient was subsequently discharged back to her home on 02/08/2025 with electronic prescriptions transmitted to her [facility] [id number] [place] [address], for: a. levofloxacin 500mg PO daily, #3 tablets, no refills. b. linezolid 600mg PO bid, #6 tablets, no refills. (2) Gastric mass: Patient underwent formal Gastroenterology Service evaluation on 02/02/2025, 1:21pm with Ms. Gabbie Frank PA-C, who wrote: "(1) Abnormal CT scan, pelvis: Diffuse thickening through the iliac chain bilaterally and in the presacral/perirectal space concerning for known lymphoproliferative process vs proctitis. Discussed with patient & Dr. Singh. Would defer endoscopic evaluation at this time given the risks of proceeding with her low platelet count and significant splenomegaly. Please refer to Dr. Singh's attending physician statement when available for further additions, details, or revisions to plan of care. (2) Gastric mass: Will need to proceed with EGD/EUS as an outpatient as planned for further invest igation of this 1.5 cm intraluminal polypoid mass noted on previous CT scan." Subsequently, GI Dr. John Singh attested the above formal Gastroenterology Service evaluation on 02/02/2025, 1:21pm with Ms. Gabbie Frank PA-C, by writing: "69-year-old female with CLL refractory to treatment. Markedly elevated white count. Patient also has very enlarged spleen that is palpable in the left side of the abdomen and somewhat tender, CT shows some constipation some thickening of the rectal wall this is likely reactive and not a primary neoplasm. Patient is having spontaneous bleeding from her leg and a small spot on her nose. Should be very high risk for endoscopic intervention which include bleeding and splenic injury. I think this is a low yield procedure with significant risk. I would treat her constipation with MiraLAX. Primary management is of her hematological condition." Patient subsequently reports that she will follow up with her Heme-Onc Dr. Valeria Nuñez on 02/09/2025, 1:00pm. Lani Pan is a 69 yo woman with hx of progressive CLL failed multiple regimens lymphedema, sinusitis, sjogren syndrome, , posterior scalp lymphoma lesion, PSVT, ankylosing spondylitis, GERD, hx of PE ~1 week [employer], the patient developed papules and what seemed to be pustules over her R leg, R shoulder, L shoulder, and down her back. The lesions on her R leg then enlarged, and became red, hot, and warm to the touch. She also has worsened BLE edema, and the lesions on her lower extremities began to drain fluid. # lower extremity SSTI infection / rash on trunk arms legs - continue pip-tazo and vancomycin. ID consulted 02/04 - potentially folliculitis, no cultures were taken while actively draining so left on current ABX. Can be discharged on linezolid and levofloxacin for 14d course. I do not see any new convincing lesions certainly not infectious ones If persistent/worsening skin lesions, recommend cultures of drainage and skin biopsy with bacterial/fungal/AFB cultures and stains if pathology specimen. Outpatient derm follow up if nonresolving on antibiotics. Note she has sufa and doxycycline allergies. 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 On ACY ppx already. regarding the 2 tiny lesions left anterior shoulder they are simply tiny less than 2 mm eschars or crusts there is no induration there is no vesicle or pustule they are not raised other than the eschar. Consider punch biopsy of 1 of these however I am not convinced that they are actually active lesions I think the yield would be low and I am concerned about causing bleeding she started to develop small hematomas on the extensor surfaces of all 4 limbs - these are related to minimal trauma in the setting of thrombocytopenia and Brukinsa which also affects platelet function. I think she is at significant risk of a major bleeding problem I did communicate this with her. Unfortunately the only course to mitigate this would be to stop the Brukinsa I did update Dr. Nuñez today. I mistakenly thought that Diana was already followed by palliative care. she is not. her oncologist is supportive of palliative care consultation. based on my extensive discussion with Diana and her at bedside today I do not think she is in the frame of mind for that right now and I did not directly broach it. I queried who is handling her pain control. it is actually been managed recently by Dr. Driscoll who requests she transfer it to her new PCP Dr. Weiner. I consulted pain service today because of escalating cancer related pain despite increasing doses of opioids over her baseline. # CLL causing anemia and thrombocytopenia, transfusion dependent for almost the past year - transfusion trigger is Hg<8. Transfused 1u RBC 02/06 probably will need one more unit tomorrow. Stable thrombocytopenia. - on brukinsa - lumbar lesion in the process of being worked up outpatient - intraluminal stomach lesion - has been f/b Dr. Soto, planned for EGD/EUS. also possible proctitis this admission. seen by GI 02/02 - follow up with Dr. Soto, planned for colonoscopy. Needing clearance for lumbar lesion - follow up with Dr. Nuñez she also has an oncologist at [facility] who comanages # diarrhea - had resolved so thought laxative related. Now recurred. Abd pain and recurrence so check C. diff # Recurrent sinusitis she's on afrin oxymetazoline and pseudoephedrine, abx as above she has not noted any benefit of being on the broad-spectrum IV antibiotics with respect to her nasal symptoms so acute bacterial sinusitis seems unlikely # SVT, possible distant episodes of PAF - continue metoprolol # CAD-microvascular disease with chronic angina - PRN nitro spray # GERD - cont bid PPI and pepcid PRN # hyponatremia - Na 132 better than previous baseline. since I last saw her when severely hyponatremic she has added some salt back to her diet. # chronic hypokalemia - 4.4 today. on 20 bid KCl -she has had pseudohyperkalemia and potassium level must be drawn in non- heparinized tube - ordered this way, comment to lab # hypothyroidism, hx papillary thyroid carcinoma - cont levothyroxine # cancer related pain of her abdomen related to splenomegaly and lymphadenopathy, chronic back pain from , opioid dependence -continue morphine CR 30 bid, also had to increase IV hydromorphone from 0.25 --> 0.5 mg PRN yesterday -cont nabumetone and cyclobenzaprine -consult pain medicine Acyclovir for prophylaxis Continue her usual Sjogren's meds which includes multiple eye drops and pilocarpine DVT ppx - history of DVT/PE. SCDs. Enoxaparin held she has been developing some small spontaneous hematomas on her extremities as well as bleeding from her leg wounds. high risk of hemorrhage because of combination of Brukinsa and thrombocytopenia Admission HPI Per Admitting Provider Diana Pan is a 69 yo woman with hx of venous insuffiiciency, CLL (diagnosed since 2009)/SLL with massive splenomegaly and CLL. ; small lymphocytic lymphoma (found on excision biopsy of posteior scalp mass), DVT, papillary thyroid cancer, hx of PSVT, palpitation, hx of MSSA cellulitis, recurrent sinusitis, Sjogren, anklosing sponylitis, fibromyalgia, chronic diarrhea on imodium. GERD she following with urology for her incontinence and was offer cystoscopy. she's has 30 lbs weight loss in 2024. for her anemia, she's need interval blood transfusion and trying to obtain clearance for EGD and colonoscopy. She's following with [facility], Dr. Soto. she' has fibromyaglia, chronic pain and on chronic morphine and oxycodone. she's has had multiple regime for her CLL and following with Dr. Turner; who working with oncology at [place], she's currently on Brukinsa 160mg BID (zanubrutinib) she's on PSVT and on metoprolol XL 150mg (morning and 100mg evening. since 48-72 hours ago, she's has worsening leg edema, but developed oozing discharge, and worsening pain. she also found several lesion in her toes on Friday01/28/2025, she's presented to our hospital for evaluation and found to be hypotension with SBP of 95. she's also been having ongoing sinusitis, and congestion and requested for eval, of note, in spring 2024, she's has broken molar on the right upper face s/p surgery and the dentist noticed significant purulent discharge during the surgery. she's been having epigastric pain, abdominal distension. and requested for admission for evaluation Discharge Exam Constitutional General: Comfortable, cooperative and coherent. Wide awake and alert. Not confused, lethargic, or obtunded. Patient speaks in complete, fluent, and articulate sentences, without pause, interruption, cough, or wheeze. HEENT: NC/AT. EOMI. PERRL. No diplopia, homonymous hemianopsia, superior/inferior/nasal/temporal quadrantanopia, nystagmus, gaze paresis, anisocoria, miosis, mydriasis, chemosis, hyphema, scleral injection, conjunctivitis, pterygium, facial droop, dysarthria, or pronator drift. No otorrhea. No rhinorrhea. Neck: Supple, no stridor, bruit, or goiter. Jugular venous pressure 3 cm above the sternal angle of Bo, which is typically 5 cm above the right atrium. Lymph: No anterior/posterior cervical lymphadenopathy, supraclavicular/infraclavicular lymphadenopathy, axilla/epitrochlear/inguinal lymphadenopathy. Chest: Symmetric rise and fall with respirations. Non-tender to palpation. Heart: RRR, S1 and S2. No S3 or S4 summation gallop. No tripartite friction rub. No murmur. Lungs: Clear to auscultation and percussion. No audible expiratory wheeze, egophony, pectoriloquy, increase in tactile fremitus, or flatness/dullness to percussion at the bases. Abd: Soft, non-tender, non-distended. Bowel sounds auscultated in all 4 quadrants. No rebound, guarding, Ramon's sign, or organomegaly. Ext: No clubbing, cyanosis, or edema. 2+ pedal pulses bilaterally. Skin: No decubitus ulcer or enanthem or exanthem. Skin: Multiple (e.g., greater than 100 lesions) well-ealed/scabbed over follicles on bilateral shins, posterior upper arms bilaterally, and bilateral upper/mid/lower back. No erythema, edema, induration, warmth, tenderness, crepitus, fluctuance, discharge (sanguineous, serous, suppurative), malodor, ulceration, or lymphangitic streaking on discharge date 02/08/2025. Skin: Solitary 1cm circular desquamative lesion (appearing as a healed scar) on dorsum of left hand in the interspace between the first and second metatarso- phalanges, with no erythema, edema, induration, warmth, tenderness, crepitus, fluctuance, discharge (sanguineous, serous, suppurative), malodor, ulceration, or lymphangitic streaking on discharge date 02/08/2025, and unchanged over the past several months, as per patient's report to me on discharge date 02/08/2025. Of note, patient reports that she has to see a woodwinds teacher on an outpatient basis to undergo biopsy of this lesion to rule out malignancy. Neuro: Alert and oriented in regards to person, place, time, and situation. No tremors, tics, or myoclonus. DTR+. 5/5 motor strength in all 4 extremities, both proximally and distally. Urology: No keenan catheter. No purewick. No urethral discharge. Discharge Plan Discharge Items Patient Disposition: Home - Self-Care Reason For Visit: CELLULITIS, HYPOTENSION, HX OF LYMPHOMA (PRIVATE R Discharge Diagnosis: 1. Acute cellulitis / folliculitis of bilateral shins. 2. CLL. Condition on Discharge: Good Activity: Resume your previous activity Bathing: No limitations Sexual Activity: When tolerated Driving/Machine Use: No limitations Weightbearing: Full weightbearing Non-emergency contact: Primary Care Provider Call non-emergency contact if: you have any medication questions Follow-up/Referrals: Guillermina Weiner MD [Primary Care Provider] - 02/22/25 10:30 am (Hospital follow up scheduled for February 22, 2025 at 10:30am) Valeria Nuñez MD [Physician] - 02/09/25 1:00 pm Diet: Heart Healthy Addtl Attending Provider Instructions: 1. See your [facility] Heme-Onc Dr. Valeria Nuñez on Friday afternoon (02/09/2025, 1:00pm) to discuss management of your CLL/SLL (small B cell lymphocytic leukemia). 2. See your PCP Dr. Guillermina Weiner within 5-7 days of hospital discharge for routine follow up visit. Pending Studies at Discharge: No Stand-Alone Forms: My [facility] [employer], Smoking Cessation Medications and DC Order Prescriptions: New levofloxacin 500 mg tablet 500 mg PO DAILY 3 Days Qty: 3 0RF linezolid 600 mg tablet 600 mg PO BID Qty: 6 0RF Continued cyclobenzaprine 10 mg tablet 10 mg PO TID 90 Days Qty: 270 3RF Rx Instructions: Medication needed muscle spasms from chronic pain: Cervical and lumbar spine spondylosis, as well as chronic lymphocytic leukemia and muscle spasms from chemotherapy. Also Fibromyalgia, and ankylosing spondylitis metoprolol tartrate 50 mg tablet 50 mg PO TID PRN (Reason: tachycardia) Qty: 270 3RF Patient Comments: pt takes med for prn tachycardia not for hypertension. ketorolac 10 mg tablet 10 mg PO TID 7 Days Qty: 21 5RF Rx Instructions: Takes tid x one week per month- other 3 weeks takes relafen nitroglycerin 400 mcg/spray spray,non-aerosol See Rx Instructions .ROUTE .COMPLEX Qty: 14.7 3RF Dose Instruction: USE 1 SPRAY SUBLINGUALLY EVERY 5 MINUTES NEEDED FOR CHEST PAIN Rx Instructions: USE 1 SPRAY SUBLINGUALLY EVERY 5 MINUTES NEEDED FOR CHEST PAIN promethazine 25 mg tablet 25 mg PO Q4H PRN (Reason: nausea and vomiting) 30 Days Qty: 60 5RF Rx Instructions: Give patient 60 pills to last one month. zolpidem [Ambien] 10 mg tablet 10 mg PO HS PRN (Reason: Sleep) 30 Days Qty: 30 5RF Rx Instructions: Take 1 hour before bedtime. meclizine 25 mg tablet 25 mg PO QID 30 Days Qty: 120 5RF furosemide 40 mg tablet 60 mg PO QAM PRN (Reason: swelling) Qty: 90 1RF morphine 30 mg tablet extended release 30 mg PO BID Qty: 60 0RF ondansetron HCl 8 mg tablet 8 mg PO TID PRN (Reason: NAUSEA/VOMITING) Qty: 90 3RF oxycodone 20 mg tablet 20 mg PO TID PRN (Reason: pain) Qty: 90 0RF sumatriptan succinate [Imitrex] 100 mg tablet 100 mg PO DAILY MDD 4 TABS/24 HOURS PRN (Reason: migraine headache) Qty: 9 2RF Rx Instructions: MAY REPEAT IF CONTINUES FOR 1.5 HOURS. metolazone 2.5 mg tablet 2.5 mg PO DAILY PRN (Reason: edema) Qty: 30 2RF Rx Instructions: Take 1 tablet by mouth 1/2 hour before Lasix as needed for edema. metolazone 2.5 mg tablet 2.5 mg PO .COMPLEX Qty: 90 3RF Rx Instructions: 2.5 mg orally TAKE 1 TABLET DAILY BY MOUTH 1/2 HOUR BEFORE LASIX NEEDED FOR EDEMA; Ajovy Syringe 225 mg/1.5 mL syringe 225 mg subcut MONTHLY Qty: 1.5 11RF Patient Comments: on hold at present 09/22/23 pilocarpine HCl [Salagen (pilocarpine)] 5 mg tablet 5 mg PO QID levothyroxine [Synthroid] 175 mcg tablet 175 mcg PO DAILYBB Rx Instructions: "BRAND NECESSARY' nabumetone 750 mg tablet 750 mg PO BID Qty: 60 5RF Rx Instructions: TAKES FOR 3 WEEKS, THEN 1 WEEK TORADOL, THEN REPEAT SCHEDULE ofloxacin [Ocuflox] 0.3 % drops 1 drops OPB TID silver sulfadiazine [Silvadene] 1 % cream 1 applic topical BID PRN (Reason: wound healing) Qty: 50 0RF Rx Instructions: apply a 1.5 mm thickness potassium chloride 10 mEq capsule, extended release 20 meq PO BID Qty: 360 3RF Rx Instructions: 03/25/24 THIS MED CURRENTLY ON HOLD hpuzeiuarg-iqwtjuywtfvfp-rjgb 50-325-40 mg tablet 1 tab PO TID PRN (Reason: TENSION HEADACHES) Qty: 90 2RF prednisone 10 mg tablet 60 mg PO .COMPLEX Qty: 42 1RF Rx Instructions: 60 mg PO daily x 2 days, 50mg daily x 2 days, 40mg daily x 2 days, 30mg daily x 2 days, 20mg daily x 2 days, 10mg daily x 2 days; ketorolac [Acular] 0.5 % drops 1 drp OPB TID olopatadine 0.1 % drops 1 drp OPB BID famotidine [Pepcid AC] 20 mg Tablet 20 mg PO BID PRN (Reason: Heartburn) timolol maleate [Istalol] 0.5 % drops, once daily 1 drp OPHTHALMIC (EYE) BID Rx Instructions: one drop in each eye, twice per day. cetirizine [Zyrtec] 10 mg Tablet 10 mg PO QAM diphenhydramine HCl [Benadryl] 25 mg Capsule 25 mg PO DAILY PRN (Reason: Allergy Symptoms) pseudoephedrine HCl [Sudafed] 30 mg Tablet 30 mg PO DIRECTED PRN (Reason: Congestion) oxymetazoline [Afrin (oxymetazoline)] 0.05 % Pitman,Non-Aerosol 2 spray INTRANASAL UD PRN (Reason: Congestion) Rx Instructions: q4-6 h guaifenesin [Mucinex] 600 mg Tablet Extended Release 12hr 600 mg PO Q12H PRN (Reason: Congestion) Magic Swizzle 1 dose PO DIRECTED PRN (Reason: MOUTH SORE FROM CHEMO) acyclovir 400 mg tablet 400 mg PO TID Patient Comments: Rx Instructions: TAKES WHILE ON VENCLEXTA. Refresh Optive Advanced (PF) 0.5-1-0.5 % Dropperette 1 drp OPHTHALMIC (EYE) DIRECTED PRN (Reason: Dry Eyes) metoprolol succinate 100 mg tablet extended release 24 hr 100 - 150 mg PO UD Rx Instructions: TAKES 150 MG QAM, THEN 100 MG QPM. orally, AND 50MG TID PRN loperamide 2 mg Capsule 2 mg PO Q6H PRN (Reason: Diarrhea) Rx Instructions: OK to take per Dr Stevie Villarreal 80 mg Capsule 160 mg PO QAM Rx Instructions: TWO CAPSULES EVERY MORNING triamcinolone acetonide [Nasacort] 55 mcg Aerosol,Pitman 1 spray INTRANASAL AMPM PRN (Reason: Allergy Symptoms) Rx Instructions: administer into each nostril pantoprazole 40 mg Tablet,Delayed Release (Dr/Ec) 40 mg PO BID Qty: 60 0RF Discharge Orders: Discharge Order (Routine); Ordered 02/08/25 Ordered By: Vasile Monaco/Other Patient Handouts: Cellulitis Dc, ED Folliculitis Admission Data Admit Date/Time: 01/28/25 18:16 Attending Provider: Vasile Olson Admit Provider: Bishop Hogue Primary Care Provider: Guillermina Weiner Other Providers: Doug Williamson Ernest J; Saurav Hernández Other Interventions: Discharge Summary Assessment (RN) Last Done: 02/08/25 14:40 Hospital Stay Data Consultations 01/28/25 17:29 ED Decision to Admit Stat 02/02/25 10:42 Consult Gastroenterology Routine 02/04/25 09:26 Consult Infectious Diseases Routine 02/07/25 10:58 Consult Pain Management Routine Diagnostic Imagining Performed 01/28/25 13:54 US venous doppler LE BI Stat 01/28/25 14:00 CT abd pelvis IV con only Stat 01/29/25 09:03 CTA abd aorta runof w con [CT ang AA runof w inc wo ifdon] Stat Pending Results Patient Have Any Pending Studies at Discharge: No Discharge Instructions Given to Patient (Per Discharging Provider) 1. See your [facility] Heme-Onc Dr. Valeria Nuñez on Friday afternoon (02/09/2025, 1:00pm) to discuss management of your CLL/SLL (small B cell lymphocytic leukemia). 2. See your PCP Dr. Guillermina Weiner within 5-7 days of hospital discharge for routine follow up visit. Total Time Total Time Spent Total Time Spent (In Minutes): 35 minutes. Of this time period, 19 minutes were spent in coordinating patient's discharge. Coding Level of Care Code 73478 INP/OBS DISCH >30 MIN Diagnoses Cellulitis, leg L03.119 Gastric mass K31.89
[2025-02-09] MEDS ORDERED: VANCOMYCIN LEVEL ONE (09:30)
== END 2025-02-08 17:00 | disposition home or self-care (01) | DRG 603 ==
LOC: ED 13:12 → 2S 18:16 → SUATTDRO 18:16 → 2S 22:19